=== PATIENT | female | born 1940 ===

== ENCOUNTER 2017-03-17 14:35 | Inpatient (IN) ==
[2017-03-17] MEDS ORDERED: FUROSEMIDE 40 MG/4 ML VIAL IV STA (14:53)
[2017-03-17] MEDS ORDERED: NITROGLYCERIN 2% OINT 1 INCH/GM PACK TOP STA (14:54)
--- NOTE | 2017-03-17 15:01 | Emergency Department Note ---
Veronica Thakur Hilary, am scribing for, and in the presence of, Mark Vega MD 14: 59. Silvia Thakur James D, MD, personally performed the services described in this documentation, ascribed by Shell Martin in my presence, and it is both accurate and complete 459 . Arrival - Arrival Chief Complaint: Shortness of Breath Stated Complaint: shortness of breath ED Nursing Triage Note: C/O HAVING SOB SINCE LAST EVENING, PATIENT WAS TOOK TO [facility] TODAY , STATES SHE HAD INCREASE SOB IN THE ER TODAY., WAS GIVEN 100 MG LASIX , ASA, INCH OF NITROPASTE, MORPHINE PRIOR TO ARRIVAL , DENIES HAVING ANY PAIN, . 20 G INT TO THE LEFT AC PRIOR TO ARRIVAL, SHANNON CATHETOR IN PLACE PRIOR TO ARRIVAL , Mode of Arrival: Stretcher Limitations: No Limitations Source: Patient, RN Notes Reviewed Time Seen by Provider: 03/17/17 14:49 - History of Present Illness HPI Narrative: Pt is a 76 y/o female brought into the ED via EMS with c/o SOB which onset this morning around 0300. She states that she was awoken from sleep with SOB and couldn't go back to sleep. Pt confirms wheezing, coughing, SOB but denies nausea , diaphoresis or chest pain. Pt has a PMHx of HTN and NIIDM. No other complaints or problems stated in the ED. Onset (ago): hour(s) Allergies/Adverse Reactions: Allergies Allergy/AdvReac Type Severity Reaction Status Date / Time No Known Allergies Allergy Unverified 03/17/17 14:59 Home Medications: Home Medications Medication Instructions Recorded Confirmed Type Clopidogrel [Plavix] 75 mg PO DAILY 03/17/17 03/17/17 History Clotrimazole/Betamethasone Dip 1 applic TOP BID 03/17/17 03/17/17 History [Clotrimazole/Betamethasone Cream] Ergocalciferol (Vitamin D2) 50,000 unit PO Q7D 03/17/17 03/17/17 History [Vitamin D2] Furosemide Tab [Lasix Tab] 20 mg PO DAILY 03/17/17 03/17/17 History Multivitamin (Centrum) [Centrum 1 tablet PO DAILY 03/17/17 03/17/17 History Tab] Nitroglycerin Sl Tab [Nitrostat] 0.4 mg SL Q5M PRN 03/17/17 03/17/17 History Ofloxacin 0.3% Oph Soln [Ocuflox 1 drop LEFT EYE QID 03/17/17 03/17/17 History 0.3% Oph Soln] Polyvinyl Alcohol [Artificial 15 ml BOTH EYES QID 03/17/17 03/17/17 History Tears] Potassium Chloride Cap/Tab [K Dur] 20 meq PO DAILY 03/17/17 03/17/17 History Propylene Glycol/Peg 400 [Systane 1 drop BOTH EYES QID PRN 03/17/17 03/17/17 History Gel Drops] Review of System - Review of System 12 point system: reviewed and no additional remarkable complaints except as stated - Review of System Constitutional: Absent: diaphoresis, fever Respiratory: Present: cough, respiratory distress (SOB), wheezing Cardiovascular: Absent: chest pain Gastrointestinal: Absent: nausea Medical,Surgical,& Family Hx - Medical History Cardio: History of: Hypertension Endocrine: History of: Diabetes Mellitus (NIDDM) - Social History Smoking Status: Never smoker Frequency of Alcohol Use: None Type of Drug Use: None Exam Physical Examination: GENERAL: This is a well-nourished, well-developed in no apparent distress. VITAL SIGNS: Temperature:97.9 Pulse: 101 Respiratory: 20 Blood Pressure: 154/78 O2SAT: 91 HEENT: Head is normocephalic and atraumatic. Pupils are equally round and reactive to light. Extraocular movement are intact. Oropharynx is benign with moist mucous membranes. NECK: JVD angle of the mandable. Neck is soft and supple without tenderness. There are no masses. There is no lymphadenopathy. LUNGS: Lungs have bibasilar rales. Chest rises symmetrically. There is no chest wall tenderness. CV: Heart is regular rate and rhythm without murmurs, rubs, or gallops. ABDOMEN:Abdomen is soft, non-tender to palpation. There are no abnormal masses palpated. There is no organomegaly. Bowel sounds are present and active. SKIN: Skin is warm and dry. No rash. EXTREMITIES: Patient has full range of motion without tenderness. There is 2+ pedal edema bilaterally. NEUROLOGIC: Awake, alert, and oriented x4. Cranial nerves II through XII are grossly intact. There are no motorsensory deficits. PSYCHIATRIC: Normal affect. Normal mood. Vital Signs: Vital Signs Temperature 97.9 F 03/17/17 14:36 Pulse Rate 94 H 03/17/17 16:45 Respiratory Rate 20 03/17/17 16:45 Blood Pressure 147/82 03/17/17 16:45 O2 Sat by Pulse Oximetry 94 L 03/17/17 16:45 Course - Consultations Consultation #1: Discussed with hospitalist. Patient will be admitted to their service. Time: 15:00 Results - Labs CBC & BMP: 03/17/17 15:54 03/17/17 15:54 Lab Results: I have reviewed the patients labs Labs: Laboratory Tests 03/17/17 15:54 WBC 10.3 RBC 4.36 Hgb 12.3 Hct 37.6 MCV 86.2 L MPV 9.5 L Neut % (Auto) 80.3 H Lymph % (Auto) 14.0 L Neut # (Auto) 8.3 H Laboratory Tests 03/17/17 03/17/17 15:54 15:54 Sodium 140 Potassium 4.8 Chloride 107 Carbon Dioxide 27 BUN 27 H Creatinine 1.20 H BUN/Creatinine Ratio 22.00 H Glucose 283 H Troponin I 1.280 H - Diagnostic Findings Procedure: Chest x-ray: report reviewed by me (Progressive moderately severe CHF with small pleural effusions. It is difficult to exclude additional underlying pathology and follow-up chest x-ray is recommended. Osteopenia), Ultrasound: report reviewed by me (Venous Doppler: No evidence to suggest deep venous thrombosis within either lower extremity) Disposition Clinical Impression: Congestive heart failure, Diabetes mellitus type 2 in obese, Hyperlipidemia, Essential hypertension Case discussed with: patient Disposition: Still a Patient Condition: Stable
[2017-03-17] MEDS ORDERED: FUROSEMIDE 40 MG/4 ML VIAL ONE (15:06)
[2017-03-17] MEDS ORDERED: NITROGLYCERIN 2% OINT 1 INCH/GM PACK TOP ONE (15:07)
--- NOTE | 2017-03-17 15:35 | XRay Report ---
Portable chest Date: 03/17/2017 Clinical history: CHF Comparison: 03/17/2017 Technique: Portable AP sitting chest Findings: Stable cardiomegaly with calcification in the aortic knob. Progressive diffuse parenchymal findings with small pleural effusions. Osteopenia with degenerative changes. Impression: Progressive moderately severe CHF with small pleural effusions. It is difficult to exclude additional underlying pathology and follow-up chest x-ray is recommended. Osteopenia. PROCEDURE INTERPRETED AT [facility] DEPARTMENT OF RADIOLOGY Final Report Signed by: Dr. Rosa Hurtado
[2017-03-17 16:01] LABS: Basophils % 0.2 % (0.0-0.8); Eosinophils % 0.1 % (0.00-10.9); Hematocrit 37.6 VOL% (35.7-47.0); Hemoglobin 12.3 GM/DL (12.0-16.0); Immature Granulocytes % 0.6 %; Immature Granulocytes Absolute 0.06 #; Lymphocytes # 1.4 10*3/uL (1.4-4.0); Mean Corpuscular HGB Conc 32.7 GM/DL (32-36); Mean Corpuscular Hemoglobin 28 PG (27-34); Mean Corpuscular Volume 86.2 FL (87-102); Mean Platelet Volume 9.5 FL (9.6-12.0); Monocytes # 0.5 10*3/uL (0.11-0.8); Monocytes % 4.8 % (1.7-12.7); Neutrophils # 8.3 10*3/uL (1.4-7.4); Neutrophils % 80.3 % (38.7-73.9); Platelet Count 344 T/CUMM (130-400); Red Blood Count 4.36 MC/CUMM (3.8-5.5); Red Cell Distribution Width 14.1 % (9.3-17.3); White Blood Count 10.3 T/CUMM (4-12)
[2017-03-17 16:28] LABS: Calcium 9.5 MG/DL (8.5-10.1); Free T4 (Free Thyroxine) 1.1 NG/DL (0.76-1.46); Osmolality,Calculated 293.4 MOS/KG (273-304); Potassium 4.8 MMOL/L (3.5-5.1); Thyroid Stimulating Hormone 1.48 uIU/ml (0.358-3.74)
[2017-03-17 16:45] LABS: Magnesium 2.1 MG/DL (1.8-2.4); Phosphorous 3.6 MG/DL (2.5-4.9)
--- NOTE | 2017-03-17 16:51 | Hospitalist History & Physical ---
Assessment and Plan (1) Congestive heart failure Status: Acute Assessment and plan: Pro-we BNP at the [facility] was noted at 8000. She was diuresed there and repeat Lasix was given here in the ED. Repeat BNP noted at 1145. Spoke with the family in great detail regarding the need to adhere to fluid restrictions, the patient her reports that the patient drinks soft drinks nonstop all day long. The patient states she only drinks one soft drink a day, however I find that very hard to believe. We will obtain an echo and bilateral venous Doppler studies. The patient's troponin levels were elevated at the time of admission also, her repeat troponin was noted at 1.280. We will obtain serial troponins. Since the patient has a extensive cardiac history we will consult cardiology to assist during the clinical encounter. We will continue diuresis and start Lasix drip. Monitor output very closely. Current Visit: Yes (2) Diabetes mellitus type 2 in obese Status: Acute Assessment and plan: The patient's blood sugars were markedly elevated at the time of admission. We will obtain hemoglobin A1c and start Accu-Cheks with sliding scale coverage. Current Visit: Yes (3) Essential hypertension Status: Acute Assessment and plan: The patient's blood pressure is stable, however we will continue to diurese and monitor. Current Visit: Yes History of Present Illness Chief complaint: Shortness of breath; chest pain History of present illness: This is a very chronically ill 76-year-old female that presented to the ED at [facility] as a lateral transfer from the [facility] for the evaluation of shortness of breath and chest pain. Patient has a very complex medical history significant for diabetes mellitus, congestive heart failure, myocardial infarction, and hypertension. At the time of presentation the patient was experiencing difficulty breathing. Her is at bedside, he was service historian. The reports the onset of symptoms at or about 0300. He reports that his was awoken from sleep with shortness of breath and had difficulty going back to sleep. The patient's reports that she is normally compliant with all of her medications, however she is not compliant with fluid consumption. He reports that she drinks soft drinks nonstop all day long. Her symptoms became so severe that she presented to the [facility] for further evaluation. At the [facility] she was assessed and labs were obtained which revealed a sodium of 141, potassium of 5.2, chloride 106, carbon dioxide 23.8, BUN at 26, creatinine at 1.2, calcium at 9.2, albumin 3.5, and glucose level at 320. Cardiac enzymes were obtained which reported a troponin at 0.13, CK-MB of 4.8, CPK at 125, and myoglobin at 158. A pro BNP was ordered which showed a gross elevation at 8458.4. Arterial blood gas was ordered which reported a pH at 7.29, PCO2 at 49, PO2 at 48, HC03 at 23.6. Complete blood count was obtained which showed a WBC at 2.1, hemoglobin at 12.9, hematocrit 41.1, and platelet count at 354. Chest x-ray was obtained which reported cardiomegaly with a moderate thoracic kyphosis, chronic coarsened markings of the mid and lower lung pratt with some pleural scarring seen about the left costophrenic angle,possible hiatal hernia, and old compression deformity of 1 of the lower thoracic vertebrae. Dr. Vega was notified by the attending physician at the [facility] regarding the need for an advanced level of care, the patient was subsequently transferred to [facility] for continuation of care. The patient continued to experience dyspnea at the time of admission, with O2 saturations noted in the 80s. Intravenous Lasix was administered and a Melchor catheter was inserted. Labs were repeated at that time which were significant for BUN at 27, creatinine at 1.20, and glucose level at 283. Cardiac enzymes were repeated which reported a troponin at 1.280. Chest x-ray was repeated which reported progressively moderate severe CHF with small pleural effusions and osteopenia. After brief discussion with Dr. Vega and Dr. Hale, the patient will be admitted to the hospitalist services for continuation of care. The patient will be placed in the critical care unit and cardiology will be consulted. Home Medications Medication Instructions Recorded Confirmed Type Clopidogrel [Plavix] 75 mg PO DAILY 03/17/17 03/17/17 History Clotrimazole/Betamethasone Dip 1 applic TOP BID 03/17/17 03/17/17 History [Clotrimazole/Betamethasone Cream] Ergocalciferol (Vitamin D2) 50,000 unit PO Q7D 03/17/17 03/17/17 History [Vitamin D2] Furosemide Tab [Lasix Tab] 20 mg PO DAILY 03/17/17 03/17/17 History Multivitamin (Centrum) [Centrum 1 tablet PO DAILY 03/17/17 03/17/17 History Tab] Nitroglycerin Sl Tab [Nitrostat] 0.4 mg SL Q5M PRN 03/17/17 03/17/17 History Ofloxacin 0.3% Oph Soln [Ocuflox 1 drop LEFT EYE QID 03/17/17 03/17/17 History 0.3% Oph Soln] Polyvinyl Alcohol [Artificial 15 ml BOTH EYES QID 03/17/17 03/17/17 History Tears] Potassium Chloride Cap/Tab [K Dur] 20 meq PO DAILY 03/17/17 03/17/17 History Propylene Glycol/Peg 400 [Systane 1 drop BOTH EYES QID PRN 03/17/17 03/17/17 History Gel Drops] Allergies Allergy/AdvReac Type Severity Reaction Status Date / Time No Known Allergies Allergy Unverified 03/17/17 14:59 Medical,Surgical,& Family Hx - Medical History Cardio: History of: Hypertension Endocrine: History of: Diabetes Mellitus (NIDDM) - Social History Smoking Status: Never smoker Frequency of Alcohol Use: None Type of Drug Use: None 12 point system: reviewed and no additional remarkable complaints except as stated Exam - Constitutional Vitals: Period Temp Pulse Resp BP Sys/Pina Pulse Ox Last 24 Hr 97.9 F 101-106 20-24 154-154/78-78 91-92 General appearance: mild distress - Head Head exam: Present: normal inspection, normocephalic, atraumatic - Eye Eye exam: Present: EOMI, conjunctival injection. Absent: nystagmus Pupils: Present: WESLY, normal accommodation - ENT ENT exam: Present: normal exam, normal external ear exam, normal oropharynx - Neck Neck exam: Present: normal inspection. Absent: lymphadenopathy, meningismus, tenderness, thyromegaly - Respiratory Respiratory exam: Present: accessory muscle use, prolonged expiratory phase, rales, rhonchi - Cardiovascular Cardiovascular exam: Present: JVD, regular rate and rhythm, systolic murmur. Absent: carotid bruit, diastolic murmur, gallop, rubs - GI/Abdominal GI/Abdominal exam: Present: normal bowel sounds, soft. Absent: mass, tenderness , rebound - Extremities Exam Extremities exam: Present: edema (+3 edema noted to bilateral lower extremities) - Back Exam Back exam: Present: normal inspection - Neurological Exam Neurological exam: Present: alert, oriented X3, CN II-XII intact - Psychiatric Psychiatric exam: Present: normal affect, normal mood - Skin Skin exam: Present: normal color, warm, dry Results - Labs CBC & BMP: 03/17/17 15:54 03/17/17 15:54 Lab Results: I have reviewed the past 24 hour labs
--- NOTE | 2017-03-17 16:57 | Ultrasound Report ---
Exam: Bilateral lower extremity venous Doppler ultrasound Comparison: None Clinical history: Leg edema, shortness of breath Technique: Duplex scan of the lower extremity veins using B-mode/grayscale scaled imaging and Doppler spectral analysis and color flow. Findings: Major venous structures of the lower extremities demonstrate a normal course and caliber. Normal color-flow study and spectral analysis. There is normal compression and augmentation of bilateral common femoral, superficial femoral and popliteal veins. The proximal bilateral greater saphenous veins appear to be patent. Impression: No evidence to suggest deep venous thrombosis within either lower extremity. Ultrasound images were captured and stored. PROCEDURE INTERPRETED AT [facility] DEPARTMENT OF RADIOLOGY Final Report Signed by: Dr. Rosa Hurtado
[2017-03-17] MEDS ORDERED: ONDANSETRON 4 MG/2 ML VIAL IV PRN (18:35)
[2017-03-17] MEDS ORDERED: ACETAMINOPHEN 325 MG TABLET PO PRN (18:35)
[2017-03-17] MEDS ORDERED: MAGNESIUM SULF RIDER 2 GM in PREMIX 1 EACH IV PRN (18:50)
[2017-03-17] MEDS ORDERED: POTASSIUM CHLORIDE RIDER 10 MEQ in PREMIX 1 EACH IV PRN (18:50)
[2017-03-17] MEDS: MORPHINE 2 MG/1 ML SYRINGE IV PRN ×2 (18:50→22:41)
[2017-03-17] MEDS ORDERED: MAGNESIUM SULF RIDER 4 GM in PREMIX 1 EACH IV PRN (18:50)
[2017-03-17] MEDS: FUROSEMIDE INJ 100 MG in SODIUM CHLORIDE 0.9% 90 ML IV SCH (19:01)
[2017-03-17] MEDS: ALBUTEROL/IPRATROPIUM 3 ML NEB RESP TX SCH (19:51)
[2017-03-17 20:29] LABS: CKMB % 5.8 %
[2017-03-17 20:35] LABS: Troponin I Only 1.7 NG/ML (0.00-0.045)
[2017-03-17] MEDS ORDERED: hydrALAZINE 20 MG/1 ML VIAL IV PRN (20:39)
[2017-03-17] MEDS: ATORVASTATIN 80 MG TABLET PO SCH ×2 (21:40→22:21)
[2017-03-17] MEDS: POLYVINYL ALCOHOL 1.4% OPH SOLN 15 ML BOTTLE BOTH EYES SCH (21:40)
[2017-03-17] MEDS: ENOXAPARIN 60 MG/0.6 ML SYRINGE SUBCUT SCH (21:40)
[2017-03-17] MEDS: OFLOXACIN 0.3% OPH SOLN 10 ML BOTTLE LEFT EYE SCH (21:40)
[2017-03-17] MEDS: ERGOCALCIFEROL 50,000 UNIT CAPSULE PO SCH (21:40)
[2017-03-17] MEDS: INSULIN REGULAR 100 UNIT/ML SUBCUT SCH (21:41)
[2017-03-17] MEDS: CARVEDILOL 6.25 MG TABLET PO SCH (21:41)
[2017-03-17] MEDS: CLOTRIMAZOLE/BETAMETHASONE CREAM 15 GM TUBE TOP SCH (21:42)
[2017-03-17] MEDS: CYCLOBENZAPRINE 10 MG TABLET PO PRN (23:00)
[2017-03-18] MEDS: ALBUTEROL/IPRATROPIUM 3 ML NEB RESP TX SCH ×6 (02:23→21:46)
[2017-03-18 02:26] LABS: Basophils % 0.2 % (0.0-0.8); Eosinophils % 0.4 % (0.00-10.9); Hematocrit 34.1 VOL% (35.7-47.0); Immature Granulocytes % 0.4 %; Immature Granulocytes Absolute 0.04 #; Lymphocytes # 1.9 10*3/uL (1.4-4.0); Lymphocytes % 17.2 % (21.3-54.2); Mean Corpuscular HGB Conc 32.3 GM/DL (32-36); Mean Corpuscular Hemoglobin 28 PG (27-34); Mean Corpuscular Volume 85.9 FL (87-102); Mean Platelet Volume 9.6 FL (9.6-12.0); Monocytes # 1.1 10*3/uL (0.11-0.8); Monocytes % 9.6 % (1.7-12.7); Neutrophils # 8.1 10*3/uL (1.4-7.4); Neutrophils % 72.2 % (38.7-73.9); Platelet Count 307 T/CUMM (130-400); Red Blood Count 3.97 MC/CUMM (3.8-5.5); Red Cell Distribution Width 14.1 % (9.3-17.3); White Blood Count 11.2 T/CUMM (4-12)
[2017-03-18 03:14] LABS: Magnesium 1.8 MG/DL (1.8-2.4); Potassium 4.4 MMOL/L (3.5-5.1)
[2017-03-18 03:15] LABS: Magnesium 1.8 MG/DL (1.8-2.4); Phosphorous 3.7 MG/DL (2.5-4.9)
[2017-03-18 03:18] LABS: CKMB % 6.1 %
[2017-03-18 03:41] LABS: Troponin I Only 2.16 NG/ML (0.00-0.045)
[2017-03-18] MEDS: FUROSEMIDE INJ 100 MG in SODIUM CHLORIDE 0.9% 90 ML IV SCH (04:50)
--- NOTE | 2017-03-18 07:32 | ECHO Report ---
Brianna Moscoso 03/17/2017 Exam Date: 15:05 Referring Physician: Yamileth Funes Technologist: KATH Age: 76 Ht (in): 62 Wt (lb): 142 FExam Location: [facility] Gender: Echo [id number]: Heart failure, unspecified, HyperliIndications:pidemia, unspecified, Essential (primary) hypertension, Shortness of breath, NIDDM BP: 154 / 78 HR: 96 SinusRhythm: goodTechnical Quality: IMPRESSIONS Left ventricular ejection fraction is estimated at 30 %. Diastolic parameters are most consistent with grade 3 diastolic dysfunction restrictive physiology. Mild aortic stenosis with moderate to severe aortic stensosi Mitral annular calcification with mild posterior mitral regurgitation Severe pulmonary hypertension Biatrial enlargement MEASUREMENTS (Male / Female) Normal Values 2D ECHO LV Diastolic Diameter PLAX 4.8 cm 4.2 - 5.9 / 3.9 - 5.3 cm LV Systolic Diameter PLAX 3.6 cm LV Fractional Shortening PLAX 25.6 % IVS Diastolic Thickness 1.4 cm 0.6 - 1.0 / 0.6 - 0.9 cm LVPW Diastolic Thickness 1.4 cm 0.6 - 1.0 / 0.6 - 0.9 cm RV Internal Dim ED PLAX 3.2 cm Aortic Root Diameter 2.8 cm LA Systolic Diameter LX 4.6 cm 3.0 - 4.0 / 2.7 - 3.8 cm DOPPLER TR Peak Velocity 395.0 cm/s TR Peak Gradient 62.4 mmHg FINDINGS Left Ventricle Normal left ventricular cavity size. Mild left ventricular hypertrophy. Left ventricular ejection fraction is estimated at 30 %. There is global hypokinesis but the distal anterior and the inferior segments appear to be slightly more hypokinetic than the remainder the ventricular myocardium. Diastolic parameters are most consistent with grade 3 diastolic dysfunction restrictive physiology. Right Ventricle The right ventricle is normal in size and function. Right Atrium Moderately increased right atrial size. Left Atrium Severely increased left atrial size. Mitral Valve Severely thickened mitral valve. Mitral valve mean gradient is 7 mmHg at a heart rate of 96 bpm. Mild posterior mitral valve regurgitation. The valve is thickened and calcified as is the annulus. Aortic Valve Severe aortic valve calcification. Mild aortic valve stenosis, mean gradient 20 mmHg, HALEIGH 1.3 cm. There is moderate to severe aortic insufficiency. The pressure halftime is 249-334 msec. LVOT VTI is 125 and AV VTI is 62.6. Tricuspid Valve Thickened tricuspid valve. [id number] tricuspid valve regurgitation. Tricuspid regurgitation velocities suggest a RVSP of 62 mmHg plus the right atrial enlargement. Pulmonic Valve Morphologically normal pulmonic valve. Mild pulmonary valve regurgitation with an EDV of 1.2 m/sec. Pericardium Normal pericardium without effusion. Aorta Normal ascending aorta dimension. Chrissy Noble (Electronically Signed) 18 March 2017 Final Date: 07:30
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
[2017-03-18] MEDS: CLOTRIMAZOLE/BETAMETHASONE CREAM 15 GM TUBE TOP SCH ×2 (08:15→21:40)
[2017-03-18] MEDS: INSULIN REGULAR 100 UNIT/ML SUBCUT SCH ×4 (08:16→21:41)
[2017-03-18] MEDS: ASPIRIN EC 81 MG TABLET PO SCH (08:17)
[2017-03-18] MEDS: OFLOXACIN 0.3% OPH SOLN 10 ML BOTTLE LEFT EYE SCH ×4 (08:17→21:40)
[2017-03-18] MEDS: POLYVINYL ALCOHOL 1.4% OPH SOLN 15 ML BOTTLE BOTH EYES SCH ×4 (08:17→21:40)
[2017-03-18] MEDS: CARVEDILOL 6.25 MG TABLET PO SCH ×2 (08:17→21:40)
[2017-03-18] MEDS: MULTIVITAMIN (CENTRUM) TABLET PO SCH (08:17)
[2017-03-18] MEDS: CLOPIDOGREL 75 MG TABLET PO SCH (08:17)
[2017-03-18] MEDS: ENOXAPARIN 60 MG/0.6 ML SYRINGE SUBCUT SCH ×2 (08:18→19:55)
[2017-03-18] MEDS: SACUBITRIL/VALSARTAN 49-51 MG TABLET PO SCH ×2 (08:24→21:40)
[2017-03-18] MEDS: ISOSORBIDE MONONITRATE 30 MG TABLET PO SCH (08:25)
[2017-03-18 08:50] LABS: CKMB % 5.8 %
[2017-03-18 08:52] LABS: Troponin I Only 2.06 NG/ML (0.00-0.045)
[2017-03-18] MEDS ORDERED: ASPIRIN EC 325 MG TABLET PO SCH (09:00)
--- NOTE | 2017-03-18 09:56 | EKG Report ---
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
--- NOTE | 2017-03-18 10:40 | Hospitalist Progress Note ---
Assessment and Plan (1) Congestive heart failure Status: Acute Assessment and plan: 1)acute hypoxic respiratory failure due to pulmonary edema from acute on chronic heart failure systolic and diastolic with valve disease- diuresing with IV lasix infusion. Troponins up to 2. Dr Noble has seen her this morning and recommends right and left heart cath. I have reviewed the report of the echo and the image and report of the CXR. She is on Plavix, lipitor, coreg, hydralazine, imdur. BP remains elevated- adjust meds. NSTEMI. 2)HTN 3)CKD 3 4)T2DM- accuchecks 180-248. SSI. no meds for diabetes on home med rec. 5)anemia- alevism Current Visit: Yes (2) Diabetes mellitus type 2 in obese Status: Acute Current Visit: Yes (3) Essential hypertension Status: Acute Current Visit: Yes (4) Anemia Status: Acute Current Visit: Yes Hospitalist: Subjective Interval history: Mrs Moscoso is feeling better this morning. She is on 4L NC with sats around 92 %. She says this all started in the last day. She sees Dr Medley. She is eating breakfast and talking without drop in her sats. Exam - Constitutional Vitals: Period Temp Pulse Resp BP Sys/Pina Pulse Ox Last 24 Hr 97.9 F-98.8 F 79-116 14-31 124-183/71-106 88-100 General appearance: normal weight, no acute distress - Head Head exam: Present: normocephalic, atraumatic - Eye Eye exam: Present: EOMI. Absent: scleral icterus Pupils: Present: WESLY - Respiratory Respiratory exam: Present: rales (bilaterally throughout posterior pratt ) - Cardiovascular Cardiovascular exam: Present: regular rate and rhythm - GI/Abdominal GI/Abdominal exam: Present: normal bowel sounds, soft. Absent: tenderness - Extremities Exam Extremities exam: Absent: edema Results - Labs CBC & BMP: 03/18/17 02:19 03/18/17 02:19 Lab Results: I have reviewed the past 24 hour labs
--- NOTE | 2017-03-18 13:43 | XRay Report ---
Exam: XR chest 1V portable Indication: COPD, cardiomegaly Comparison study: 03/17/2017 Findings: Correction was enlarged, similar to prior. Atherosclerotic changes of the thoracic aorta are noted. Prominent perihilar and left more so than right basilar interstitial and airspace opacities are noted bilaterally. There is no pneumothorax. Osseous structures are stable from prior. Impression: Similar cardiomegaly and perihilar/basilar opacities may represent pulmonary edema changes. Multifocal infectious/inflammatory infiltrates are less likely consideration but not entirely excluded. PROCEDURE INTERPRETED AT [facility] DEPARTMENT OF RADIOLOGY Final Report Signed by: Last Jennings
[2017-03-18] MEDS: ATORVASTATIN 80 MG TABLET PO SCH (21:40)
[2017-03-18] MEDS: CYCLOBENZAPRINE 10 MG TABLET PO PRN (21:44)
[2017-03-19] MEDS: ALBUTEROL/IPRATROPIUM 3 ML NEB RESP TX SCH ×6 (01:26→19:34)
[2017-03-19 04:39] LABS: Basophils % 0.2 % (0.0-0.8); Eosinophils # 0.1 10*3/uL (0.0-0.87); Eosinophils % 1.1 % (0.00-10.9); Hemoglobin 11.8 GM/DL (12.0-16.0); Immature Granulocytes % 0.4 %; Immature Granulocytes Absolute 0.04 #; Lymphocytes # 2.4 10*3/uL (1.4-4.0); Lymphocytes % 21.8 % (21.3-54.2); Mean Corpuscular HGB Conc 32.8 GM/DL (32-36); Mean Corpuscular Hemoglobin 28 PG (27-34); Mean Corpuscular Volume 85.9 FL (87-102); Mean Platelet Volume 9.8 FL (9.6-12.0); Monocytes # 1.1 10*3/uL (0.11-0.8); Monocytes % 10.2 % (1.7-12.7); Neutrophils # 7.2 10*3/uL (1.4-7.4); Neutrophils % 66.3 % (38.7-73.9); Platelet Count 318 T/CUMM (130-400); Red Blood Count 4.19 MC/CUMM (3.8-5.5); Red Cell Distribution Width 13.8 % (9.3-17.3); White Blood Count 10.8 T/CUMM (4-12)
[2017-03-19 05:08] LABS: Magnesium 1.6 MG/DL (1.8-2.4); Osmolality,Calculated 290.1 MOS/KG (273-304); Potassium 3.8 MMOL/L (3.5-5.1)
[2017-03-19 05:10] LABS: Troponin I Only 1.1 NG/ML (0.00-0.045)
[2017-03-19] MEDS ORDERED: DIAZEPAM 5 MG TABLET PO ONE (08:24)
[2017-03-19] MEDS ORDERED: diphenhydrAMINE CAP 25 MG CAPSULE PO ONE (08:24)
--- NOTE | 2017-03-19 08:30 | Cardiology Progress Note ---
Assessment and Plan (1) Coronary artery disease Status: Chronic Current Visit: Yes Qualifiers: Coronary Disease-Associated Artery/Lesion type: [place] artery [place] vs. transplanted heart: [place] heart Associated angina: without angina Qualified Code(s): I25.10 - Atherosclerotic heart disease of [place] coronary artery without angina pectoris (2) Aortic insufficiency Status: Acute Assessment and plan: This in conjunction with her uncontrolled blood pressure may be the nidus for her acute decompensation. She also has decreased EF which might suggest subacute or chronic. She has not been seen for some time and has known coronary artery disease. Current Visit: Yes Qualifiers: Cardiac valve disease etiology: nonrheumatic Qualified Code(s): I35.1 - Nonrheumatic aortic (valve) insufficiency (3) Mitral regurgitation Status: Chronic Current Visit: Yes Qualifiers: Cardiac valve disease etiology: nonrheumatic Qualified Code(s): I34.0 - Nonrheumatic mitral (valve) insufficiency (4) Biatrial enlargement Status: Chronic Current Visit: Yes (5) Congestive heart failure Status: Acute Assessment and plan: The patient has a moderate to severely depressed ejection fraction. She has advanced diastolic dysfunction and valvular heart disease. She also has known underlying coronary artery disease. She will need left heart catheterization and probably right heart catheterization. I suspect the problem is her aortic insufficiency. She is [employer] and this will play into any decision for surgery especially the fact that she is anemic. I recommend maximum vasodilation to control her blood pressure and maximum diuresis. Current Visit: Yes (6) Diabetes mellitus type 2 in obese Status: Acute Current Visit: Yes (7) Hyperlipidemia Status: Chronic Current Visit: Yes Qualifiers: Hyperlipidemia type: pure hypercholesterolemia Qualified Code(s): E78.00 - Pure hypercholesterolemia, unspecified; E78.0 - Pure hypercholesterolemia (8) Essential hypertension Status: Chronic Current Visit: Yes (9) Anemia Status: Chronic Current Visit: Yes Cardiology - PN: Subj Interval history: The patient is clearly better today. She has diuresed almost 4 L and just over 3 kg of weight which correlate perfectly. Her renal function has tolerated this well. I reviewed her echocardiogram and her heart cath. Heart cath was in 2013 she had severe moderate to severe three-vessel disease with intervention on 2 vessels at that time. She also has by echocardiography moderate to severe and I favor severe aortic insufficiency. The patient needs left and right heart cath to delineate the problem. She has been on clopidogrel for some time and I consider stopping it it might potentially help if she needs surgery however given the fact that were only 24 hours away from her presumptive heart cath I will continue. She has plenty room to work with medicines until her aortic insufficiency and/or coronary artery disease are treated surgically. Her blood pressure remains high. I started her on escalating medications yesterday including beta-hector and Entresto. She still has lots of blood pressure that needs to be removed. I will increase her Coreg today as she is diuresed well if her renal function tolerates would up titrate slowly on the Entresto. She also is anemic and is a [employer]ology which may play into her risk for surgical intervention. I discussed with the patient about the left heart cath and she is agreeable. I will schedule tomorrow for the cath physician Dr. Hall Exam (Progress Note) - Constitutional Vitals: Period Temp Pulse Resp BP Sys/Pina Pulse Ox Last 24 Hr 97.6 F-99.7 F 86-116 17-32 111-177/60-92 77-100 General appearance: normal weight - Head Head exam: Present: normal inspection - Eye Eye exam: Present: EOMI Pupils: Present: WESLY - Neck Neck exam: Present: normal inspection - Respiratory Respiratory exam: Present: rales (But they are dramatically better than yesterday) - Cardiovascular Cardiovascular exam: Present: regular rate and rhythm (I do not hear AI) - GI/Abdominal GI/Abdominal exam: Present: normal bowel sounds - Extremities Exam Extremities exam: Present: normal inspection - Back Exam Back exam: Present: normal inspection - Neurological Exam Neurological exam: Present: alert, oriented X3 - Psychiatric Psychiatric exam: Present: normal affect, normal mood - Skin Skin exam: Present: normal color, warm, dry Result/EKG - Labs CBC & BMP: 03/19/17 03:51 03/19/17 03:51 Labs: Laboratory Results - last 24 hr 03/18/17 03/18/17 03/18/17 07:14 07:39 11:03 WBC RBC Hgb Hct MCV MCH MCHC RDW Plt Count MPV Neut % (Auto) Lymph % (Auto) [place] % (Auto) Eos % (Auto) Baso % (Auto) Neut # (Auto) Lymph # (Auto) [place] # (Auto) Eos # (Auto) Baso # (Auto) Immature Gran % Nucleated RBC % Immature Gran # Nucleated RBCs # Sodium Potassium Chloride Carbon Dioxide Anion Gap BUN Creatinine GFR Calculation BUN/Creatinine Ratio Glucose POC Glucose 180 H 221 H Calculated Osmolality Calcium Magnesium Total Creatine Kinase 88 CK-MB (CK-2) 5.1 H CK and CKMB Interp 5.8 Troponin I 2.060 H 03/18/17 03/18/17 03/19/17 15:18 19:54 03:51 WBC 10.8 RBC 4.19 Hgb 11.8 L Hct 36.0 MCV 85.9 L MCH 28 MCHC 32.8 RDW 13.8 Plt Count 318 MPV 9.8 Neut % (Auto) 66.3 Lymph % (Auto) 21.8 [place] % (Auto) 10.2 Eos % (Auto) 1.1 Baso % (Auto) 0.2 Neut # (Auto) 7.2 Lymph # (Auto) 2.4 [place] # (Auto) 1.1 H Eos # (Auto) 0.1 Baso # (Auto) 0.0 Immature Gran % 0.4 Nucleated RBC % 0.0 Immature Gran # 0.04 Nucleated RBCs # 0.00 Sodium Potassium Chloride Carbon Dioxide Anion Gap BUN Creatinine GFR Calculation BUN/Creatinine Ratio Glucose POC Glucose 232 H 276 H Calculated Osmolality Calcium Magnesium Total Creatine Kinase CK-MB (CK-2) CK and CKMB Interp Troponin I 03/19/17 03/19/17 03:51 07:16 WBC RBC Hgb Hct MCV MCH MCHC RDW Plt Count MPV Neut % (Auto) Lymph % (Auto) [place] % (Auto) Eos % (Auto) Baso % (Auto) Neut # (Auto) Lymph # (Auto) [place] # (Auto) Eos # (Auto) Baso # (Auto) Immature Gran % Nucleated RBC % Immature Gran # Nucleated RBCs # Sodium 142 Potassium 3.8 Chloride 104 Carbon Dioxide 29 Anion Gap 12.8 BUN 25 H Creatinine 1.00 GFR Calculation 51 BUN/Creatinine Ratio 25.00 H Glucose 172 H POC Glucose 184 H Calculated Osmolality 290.1 Calcium 9.0 Magnesium 1.6 L Total Creatine Kinase CK-MB (CK-2) CK and CKMB Interp Troponin I 1.100 H D
[2017-03-19] MEDS: INSULIN REGULAR 100 UNIT/ML SUBCUT SCH ×4 (08:36→23:51)
[2017-03-19] MEDS: SACUBITRIL/VALSARTAN 49-51 MG TABLET PO SCH ×2 (09:15→21:53)
[2017-03-19] MEDS: ISOSORBIDE MONONITRATE 30 MG TABLET PO SCH (09:16)
[2017-03-19] MEDS: CARVEDILOL 12.5 MG TABLET PO SCH ×2 (09:16→21:53)
[2017-03-19] MEDS: POLYVINYL ALCOHOL 1.4% OPH SOLN 15 ML BOTTLE BOTH EYES SCH ×4 (09:17→21:54)
[2017-03-19] MEDS: ERGOCALCIFEROL 50,000 UNIT CAPSULE PO SCH (09:17)
[2017-03-19] MEDS: CLOTRIMAZOLE/BETAMETHASONE CREAM 15 GM TUBE TOP SCH ×2 (09:18→21:54)
[2017-03-19] MEDS: CLOPIDOGREL 75 MG TABLET PO SCH (09:18)
[2017-03-19] MEDS: MULTIVITAMIN (CENTRUM) TABLET PO SCH (09:18)
[2017-03-19] MEDS: ENOXAPARIN 60 MG/0.6 ML SYRINGE SUBCUT SCH ×2 (09:18→21:54)
[2017-03-19] MEDS: ASPIRIN EC 81 MG TABLET PO SCH (09:18)
[2017-03-19] MEDS: OFLOXACIN 0.3% OPH SOLN 10 ML BOTTLE LEFT EYE SCH ×4 (09:19→21:54)
--- NOTE | 2017-03-19 09:21 | Hospitalist Progress Note ---
Assessment and Plan (1) Congestive heart failure Status: Acute Assessment and plan: 1)acute hypoxic respiratory failure due to pulmonary edema from acute on chronic heart failure systolic and diastolic with valve disease- lasix infusion complete, begin oral lasix today. Troponins peaked at 2.1. Dr Noble has seen her this morning and recommends right and left heart cath tomorrow. She is on Plavix, lipitor, coreg, hydralazine, imdur. BP under better control, but occasionally- add oral hydralazine. creatinine now 1. consider NO? NSTEMI. 2)HTN- adding hydralazine as above. 3)CKD 2- creatinine now 1, GFR 51 4)T2DM- accuchecks 180-248. SSI. no meds for diabetes on home med rec. begin glimepiride. 5)anemia- spiritism 6)dispo- to tele today. Current Visit: Yes (2) Diabetes mellitus type 2 in obese Status: Acute Current Visit: Yes (3) Essential hypertension Status: Chronic Current Visit: Yes (4) Anemia Status: Chronic Current Visit: Yes Hospitalist: Subjective Interval history: Mrs Moscoso tells me she is much better today and is breathing as she usually does. She is able to lie flat. She denies pain. She ate her entire breakfast. She understands the plan for heart cath tomorrow morning. Exam - Constitutional Vitals: Period Temp Pulse Resp BP Sys/Pina Pulse Ox Last 24 Hr 97.6 F-99.7 F 86-109 17-32 111-177/60-92 77-100 General appearance: normal weight, no acute distress - Head Head exam: Present: normocephalic, atraumatic - Eye Eye exam: Present: EOMI. Absent: scleral icterus - Respiratory Respiratory exam: Present: rales (at bases, much less than yesterday) - Cardiovascular Cardiovascular exam: Present: regular rate and rhythm - GI/Abdominal GI/Abdominal exam: Present: normal bowel sounds, soft. Absent: tenderness - Extremities Exam Extremities exam: Absent: edema Results - Labs CBC & BMP: 03/19/17 03:51 03/19/17 03:51 Lab Results: I have reviewed the past 24 hour labs
[2017-03-19] MEDS: GLIMEPIRIDE 2 MG TABLET PO SCH (09:39)
[2017-03-19] MEDS: FUROSEMIDE 40 MG TABLET PO SCH (09:39)
[2017-03-19] MEDS: hydrALAZINE 25 MG TABLET PO SCH ×2 (16:56→21:53)
[2017-03-19] MEDS: ATORVASTATIN 80 MG TABLET PO SCH (21:53)
[2017-03-20] MEDS: ALBUTEROL/IPRATROPIUM 3 ML NEB RESP TX SCH ×7 (00:56→23:36)
[2017-03-20 05:10] LABS: Basophils % 0.1 % (0.0-0.8); Eosinophils # 0.1 10*3/uL (0.0-0.87); Eosinophils % 1.5 % (0.00-10.9); Hematocrit 32.9 VOL% (35.7-47.0); Hemoglobin 10.8 GM/DL (12.0-16.0); Immature Granulocytes % 0.3 %; Immature Granulocytes Absolute 0.03 #; Lymphocytes # 2.8 10*3/uL (1.4-4.0); Lymphocytes % 30.2 % (21.3-54.2); Mean Corpuscular HGB Conc 32.8 GM/DL (32-36); Mean Corpuscular Hemoglobin 28 PG (27-34); Mean Corpuscular Volume 85.7 FL (87-102); Mean Platelet Volume 9.8 FL (9.6-12.0); Monocytes # 0.9 10*3/uL (0.11-0.8); Monocytes % 9.4 % (1.7-12.7); Neutrophils # 5.4 10*3/uL (1.4-7.4); Neutrophils % 58.5 % (38.7-73.9); Platelet Count 283 T/CUMM (130-400); Red Blood Count 3.84 MC/CUMM (3.8-5.5); Red Cell Distribution Width 13.7 % (9.3-17.3); White Blood Count 9.2 T/CUMM (4-12)
[2017-03-20 05:49] LABS: Calcium 8.3 MG/DL (8.5-10.1); Osmolality,Calculated 293.1 MOS/KG (273-304); Potassium 3.9 MMOL/L (3.5-5.1)
[2017-03-20] MEDS ORDERED: SYSTANE BOTH EYES PRN (09:00)
[2017-03-20] MEDS: ENOXAPARIN 60 MG/0.6 ML SYRINGE SUBCUT SCH ×2 (09:03→21:58)
[2017-03-20] MEDS: ASPIRIN EC 81 MG TABLET PO SCH (09:04)
[2017-03-20] MEDS: SACUBITRIL/VALSARTAN 49-51 MG TABLET PO SCH ×2 (09:04→21:56)
[2017-03-20] MEDS: CARVEDILOL 12.5 MG TABLET PO SCH ×2 (09:04→21:56)
[2017-03-20] MEDS: MULTIVITAMIN (CENTRUM) TABLET PO SCH (09:04)
[2017-03-20] MEDS: GLIMEPIRIDE 2 MG TABLET PO SCH (09:04)
[2017-03-20] MEDS: ISOSORBIDE MONONITRATE 30 MG TABLET PO SCH (09:04)
[2017-03-20] MEDS: CLOPIDOGREL 75 MG TABLET PO SCH (09:04)
[2017-03-20] MEDS: FUROSEMIDE 40 MG TABLET PO SCH (09:04)
[2017-03-20] MEDS: hydrALAZINE 25 MG TABLET PO SCH ×4 (09:04→21:58)
[2017-03-20] MEDS: INSULIN REGULAR 100 UNIT/ML SUBCUT SCH ×4 (09:05→21:58)
[2017-03-20] MEDS: POLYVINYL ALCOHOL 1.4% OPH SOLN 15 ML BOTTLE BOTH EYES SCH ×4 (09:06→21:59)
[2017-03-20] MEDS: CLOTRIMAZOLE/BETAMETHASONE CREAM 15 GM TUBE TOP SCH ×2 (09:07→22:00)
[2017-03-20] MEDS: OFLOXACIN 0.3% OPH SOLN 10 ML BOTTLE LEFT EYE SCH ×4 (09:07→22:00)
[2017-03-20] MEDS ORDERED: diphenhydrAMINE CAP 25 MG CAPSULE ONE (12:27)
[2017-03-20] MEDS ORDERED: DIAZEPAM 5 MG TABLET ONE (12:27)
[2017-03-20] MEDS ORDERED: LIDOCAINE 1% 20 ML VIAL ONE (12:39)
[2017-03-20] MEDS ORDERED: HEPARIN/NACL 0.9% 2 UNITS/ML 1,000 ML IV ONE (12:39)
[2017-03-20] MEDS ORDERED: LIDOCAINE 1%/EPI INJ 20 ML VIAL ONE (12:58)
[2017-03-20] MEDS ORDERED: fentaNYL 100 MCG/2 ML VIAL ONE (13:07)
[2017-03-20] MEDS ORDERED: MIDAZOLAM 2 MG/2 ML VIAL ONE (13:07)
--- NOTE | 2017-03-20 13:11 | History and Physical Update ---
Sedation H&P Update - History and Physical H&P was reviewed, the patient examined and there: are no changes in the patients condition since last H&P was completed. - Sedation Plan for Sedation: moderate Patient Consent: Procedure disscussed with patient and patinet has consented., Risks and benefits were discussed with patient,including infection,, bleeding, injury to surrounding structures, seizure, temporary nerve, Patient understands and accepts potential risks/benefits and agrees to, proceed. ASA Class: III Airway Assessment: Class III: Soft palate, base of uvula visible
[2017-03-20] MEDS ORDERED: GLIMEPIRIDE 4 MG TABLET PO SCH (13:32)
--- NOTE | 2017-03-20 13:33 | Hospitalist Progress Note ---
Assessment and Plan (1) Congestive heart failure Status: Acute Assessment and plan: acute hypoxic respiratory failure due to pulmonary edema from systolic adn diastolic heart failure. She reponded to lasix infusion on admission and is now on oral lasix. She will have right and left heart cath today as troponins katy and peaked at 2.1. Continue plavix, lipitor, coreg, hydralazine, entresto, imdur- BP under better control with oral hydralazine added. Her creatinine is 1.2. NSTEMI. 2)HTN 3)CKD2 4)T2DM- I started glimepiride (first dose yesterday) but glucoses remain high- 199-240 today. Increase to med intensity SSI and increase dose of glimepiride. 5)anemia- Restoration 6)dispo- will return home at discharge. Current Visit: Yes (2) Diabetes mellitus type 2 in obese Status: Acute Current Visit: Yes (3) Essential hypertension Status: Chronic Current Visit: Yes (4) Anemia Status: Chronic Current Visit: Yes Hospitalist: Subjective Interval history: Mrs Moscoso reports having a good night last night. No orthopnea or PND. She is breathing comfortably. She will have R and L heart cath today. Exam - Constitutional Vitals: Period Temp Pulse Resp BP Sys/Pina Pulse Ox Last 24 Hr 97.7 F-99.8 F 74-95 16-20 101-162/48-87 94-100 General appearance: normal weight, no acute distress - Eye Eye exam: Present: EOMI. Absent: scleral icterus - Respiratory Respiratory exam: Present: rales (still some at bases) - Cardiovascular Cardiovascular exam: Present: regular rate and rhythm - GI/Abdominal GI/Abdominal exam: Present: normal bowel sounds, soft. Absent: tenderness - Extremities Exam Extremities exam: Absent: edema Results - Labs CBC & BMP: 03/20/17 04:33 03/20/17 04:33 Lab Results: I have reviewed the past 24 hour labs
--- NOTE | 2017-03-20 14:13 | Cardiac Catheterization ---
Date of Procedure:: 03/20/17 Pre-op Diagnosis: Patient with worsening LV function worsening aortic insufficiency for right and left heart catheterization to fully evaluate. Post-op diagnosis: same Procedure: Procedures performed: Right heart catheterization Oxygen saturation measurements Cardiac output by thermodilution technique Left heart catheterization Coronary arteriography Left ventriculography Femoral sheath angiography After obtaining informed consent the patient was brought to the [facility] with a right groin was prepped and draped in the usual sterile manner. Using intravenous sedation and local anesthesia a needle was inserted into the right femoral artery and a 6 [place] sheath was placed without difficulty. A separate needle stick was made to the right femoral vein and a 7 [place] sheath was placed without difficulty. A [place] catheter was advanced under fluoroscopy to the superior vena cava where oxygen saturation measurements were obtained. This catheter then was positioned using balloon flow to the main pulmonary artery. Oxygen saturations again were obtained with the catheter tip in the main pulmonary artery. This catheter then was connected to hemodynamic monitoring and pressures were measured in the pulmonary capillary wedge position and in the main pulmonary artery. Cardiac outputs were then obtained using the thermodilution technique. After completion of cardiac output measurements, the catheter was pulled back from the main pulmonary artery into the right ventricle where right ventricular pressures were measured. This catheter then was pulled back into the right atrium where pressures were measured and then this catheter was removed. A [place]ár[place] left coronary catheter was advanced over a guidewire through the arterial sheath to the ascending aorta under fluoroscopy. The left main coronary artery was engaged and multiple angiograms of the left coronary was undertaken in multiple views. After adequate angiograms of the left coronary were obtained this catheter was withdrawn and an AMRM right coronary catheter was advanced over a guidewire under fluoroscopic control the ascending aorta where angiography of the right coronary artery was undertaken in multiple views. After adequate angiograms of the right coronary artery were obtained this catheter was withdrawn and a pigtail ventriculographic catheter was advanced over a guidewire to fluoroscopic control to the ascending aorta where it was then passed across the aortic valve where intraventricular hemodynamics were measured. A ventriculogram was undertaken at this point in the MA projection. After completion of ventriculography this catheter was pulled back from the ventricle to the aorta under hemodynamic monitoring. It was then used to performed descending aortography injecting 45 cc of contrast at 18 cc/s in the MA projection. After completion of aortography this catheter was removed over a guidewire. At this point patient underwent femoral sheath angiography which demonstrated anatomy appropriate for [Mynx closure]. Good hemostasis was obtained and the patient was transferred back to the [facility] having suffered no significant immediate complications. Hemodynamics: Please see the accompanying hemodynamic data sheet PA pressures measured in the 46/20 range. Pulmonary capillary wedge pressure was 13 mmHg. Cardiac output measured in the 3.3 L/min range. Right atrial pressures were 8 mmHg. Coronary arteriography Left coronary artery: Left main coronary artery is well-developed and free of significant obstructing lesions. The circumflex coronary is a large nondominant vessel possesses a calcified 90% area stenosis in its proximal portion. Remainder the circumflex and its branches appear to be free of significant obstructing lesions. Left anterior descending coronary is a large vessel extends around the apex of the ventricle and provides the septal perforators to the inferior septum and its distal portion. This vessel has some irregularities but no significant stenosis can be identified. There is a large second diagonal has an area of probably 90% stenosis in its proximal portion. This is a moderate-sized vessel. Remainder of the diagonal is free of significant obstructing lesions. The LAD otherwise is large and free of significant obstructing lesions. Right coronary artery: The right coronary is completely occluded at its origin. It fills via collaterals from the distal LAD and septal perforators of the LAD. Left ventriculography: After injection of contrast in the left ventricle is known to be of normal size with diffuse moderate to severe left ventricular hypokinesis. Ejection fraction is estimated to be in the 35% range. This is diffusely hypokinetic. Aortic structures appear densely calcified. There is mitral annular calcification noted. Ascending aortography: After injection of contrast into the ascending aorta is noted to be of normal caliber. There is dense calcification noted on both anterior and posterior aortic womack. There appears to be at least 3+ aortic insufficiency noted. The aortic valve itself is calcified. Right femoral sheath angiography: After injection into the right femoral arterial sheath appears to enter the common femoral above the bifurcation. No evidence of significant stenosis of the distal iliac, common femoral bifurcation be noted based on this limited angiographic study. Conclusions: 1: Severe tribal coronary disease involving primarily the proximal circumflex and a totally occluded right which fills via collaterals from the left system. 2: Branch vessel disease involving the LAD 3: Moderate collaterals from the septal perforators and distal LAD to the right coronary artery. 4: At least 3+ aortic insufficiency by this study 5: Moderate pulmonary hypertension without evidence of right heart failure 6: Minx closure right femoral arteriotomy site Discussion recommendations: Patient presents with worsening LV function. By this study she has significant two-vessel disease involving the circumflex and right coronary arteries. Her LV function is worsening. It does not show evidence of chronic enlargement and you would see with severe aortic insufficiency although it likely is playing some role in her worsening LV function. I do not know that she is an optimal candidate for aortic valve replacement in this situation and with blood pressure control and diuresis she may improve clinically. Anesthesia: moderate conscious sedation Surgeon / Physician: Raul Hall - Medications / Follow-up
--- NOTE | 2017-03-20 15:03 | EKG Report ---
Stationary ECG Study [facility] Test Date: 03/20/2017 3:03:11 PM Pat Name: THADDEUS AN Department: Room: 277 Gender: F Gear Straightener: SINDHU : 1940 Requested by: Raul Hall Order Number: [id number] Reading MD: RAUL HALL Intervals [place] Rate: 75 P: 26 OR: 175 QRS: 61 QRSD: 92 T: 178 QT: 458 QTc: 487 Interpretive Statements SINUS RHYTHM LOW QRS VOLTAGE IN PRECORDIAL LEADS POSSIBLE ANTERIOR MYOCARDIAL INFARCTION, OF INDETERMINATE AGE MODERATE T-WAVE ABNORMALITY, CONSIDER LATERAL ISCHEMIA Electronically Signed On 03-22-17 17:01:12 CDT by RAUL HALL [email or web address]
[2017-03-20] MEDS: ATORVASTATIN 80 MG TABLET PO SCH (21:57)
[2017-03-21] MEDS: ALBUTEROL/IPRATROPIUM 3 ML NEB RESP TX SCH ×5 (02:58→20:23)
[2017-03-21 05:59] LABS: Calcium 8.5 MG/DL (8.5-10.1); Potassium 3.8 MMOL/L (3.5-5.1)
[2017-03-21] MEDS: FUROSEMIDE 40 MG TABLET PO SCH (08:24)
[2017-03-21] MEDS: CARVEDILOL 12.5 MG TABLET PO SCH ×2 (08:25→22:09)
[2017-03-21] MEDS: hydrALAZINE 25 MG TABLET PO SCH ×3 (08:25→22:09)
[2017-03-21] MEDS: CLOTRIMAZOLE/BETAMETHASONE CREAM 15 GM TUBE TOP SCH ×2 (08:25→22:10)
[2017-03-21] MEDS: ENOXAPARIN 60 MG/0.6 ML SYRINGE SUBCUT SCH ×2 (08:25→19:46)
[2017-03-21] MEDS: ISOSORBIDE MONONITRATE 30 MG TABLET PO SCH (08:25)
[2017-03-21] MEDS: MULTIVITAMIN (CENTRUM) TABLET PO SCH (08:25)
[2017-03-21] MEDS: ASPIRIN EC 81 MG TABLET PO SCH (08:25)
[2017-03-21] MEDS: CLOPIDOGREL 75 MG TABLET PO SCH (08:25)
[2017-03-21] MEDS: INSULIN REGULAR 100 UNIT/ML SUBCUT SCH ×4 (08:25→22:09)
[2017-03-21] MEDS: OFLOXACIN 0.3% OPH SOLN 10 ML BOTTLE LEFT EYE SCH ×4 (08:26→22:10)
[2017-03-21] MEDS: POLYVINYL ALCOHOL 1.4% OPH SOLN 15 ML BOTTLE BOTH EYES SCH ×4 (08:26→22:10)
[2017-03-21] MEDS: SACUBITRIL/VALSARTAN 49-51 MG TABLET PO SCH (08:26)
--- NOTE | 2017-03-21 14:40 | Cardiology Progress Note ---
Assessment and Plan (1) Aortic insufficiency Status: Acute Assessment and plan: This patient has at least moderate aortic insufficiency. I think she is a marginal candidate for aortic valve replacement I would be inclined to want to continue pressing on with medications. I do not have any reason to think that she would be in need of aortic valve replacement anytime soon. Current Visit: Yes Qualifiers: Cardiac valve disease etiology: nonrheumatic Qualified Code(s): I35.1 - Nonrheumatic aortic (valve) insufficiency (2) Congestive heart failure Status: Acute Assessment and plan: Her end diastolic pressures were in the 9 range yesterday. She has moderate pulmonary hypertension with systolic PA pressures in the 40 range. We will continue aggressive blood pressure control. Current Visit: Yes (3) Coronary artery disease Status: Chronic Current Visit: Yes Qualifiers: Coronary Disease-Associated Artery/Lesion type: [place] artery [place] vs. transplanted heart: [place] heart Associated angina: without angina Qualified Code(s): I25.10 - Atherosclerotic heart disease of [place] coronary artery without angina pectoris (4) Essential hypertension Status: Chronic Current Visit: Yes Cardiology - PN: Subj Interval history: This patient has had a reasonable day today post cath yesterday. Findings are consistent with fairly well compensated LV dysfunction with EDP in the 9 range. She is easily confused and a little agitated. She requires a diaper. She is relatively comfortable but complains of shortness of breath much constantly. We will repeat a BNP and see where we are with that. Her counts are stable and her renal function is reasonably stable at 1.4 creatinine. Her GFR is in the 40 range. Exam (Progress Note) - Constitutional Vitals: Period Temp Pulse Resp BP Sys/Pina Pulse Ox Last 24 Hr 98.0 F-100.0 F 73-95 16-20 110-152/49-91 86-99 Exam: General:no acute distress. alert and oriented, mood and affect are normal HEENT: no new lesions, sclerae are clear, mouth and pharynx benign Neck: supple, trachea midline, no JVD noted Lungs: no rales ronchi or wheeze is noted. pt comfortable without accesory muscle use to assist with breathing CV: RRR a murmur is noted. There is no left. The PMI is lateral. Abd: soft and nontender, BSNA, no masses. Ext: no cyanosis, clubbing or edema Neuro: grossly intact without focal neurologic deficit. Result/EKG - Labs CBC & BMP: 03/20/17 04:33 03/21/17 04:59 Labs: Laboratory Results - last 24 hr 03/20/17 03/20/17 03/20/17 14:42 15:19 20:13 Sodium Potassium Chloride Carbon Dioxide Anion Gap BUN Creatinine GFR Calculation BUN/Creatinine Ratio Glucose POC Glucose 199 H 257 H 394 H Calculated Osmolality Calcium 03/21/17 03/21/17 03/21/17 04:59 07:52 11:30 Sodium 143 Potassium 3.8 Chloride 104 Carbon Dioxide 28 Anion Gap 14.8 BUN 30 H Creatinine 1.40 H GFR Calculation 34 BUN/Creatinine Ratio 21.00 H Glucose 141 H POC Glucose 183 H 270 H Calculated Osmolality 292.0 Calcium 8.5 03/21/17 12:01 Sodium Potassium Chloride Carbon Dioxide Anion Gap BUN Creatinine GFR Calculation BUN/Creatinine Ratio Glucose POC Glucose 314 H Calculated Osmolality Calcium Quality Measures - VTE Contraindication to Pharmacological VTE Prophylaxis: High Risk of Bleeding Specialty Discharge - Follow Up or Referrals
--- NOTE | 2017-03-21 14:49 | Hospitalist Progress Note ---
Hospitalist: Subjective Interval history: Patient reports her shortness of breath is better. She denies any chest pain, nausea, vomiting. She does report some intermittent lightheadedness. She does state that she is tolerating oral intake. Last bowel movement yesterday. Exam - Constitutional Vitals: Period Temp Pulse Resp BP Sys/Pina Pulse Ox Last 24 Hr 98.0 F-100.0 F 73-95 16-20 110-152/49-91 86-99 Exam: Awake alert no acute distress Regular rate and rhythm, 3/6 diastolic murmur Clear to auscultation, diminished at the bases nonlabored Abdomen is soft nontender nondistended hypoactive bowel sounds Extremities are warm and well-perfused. No clubbing cyanosis or edema Results - Labs CBC & BMP: 03/20/17 04:33 03/21/17 04:59 - Impressions Catheterization report reveals 1: Severe [place] coronary disease involving primarily the proximal circumflex and a totally occluded right which fills via collaterals from the left system. 2: Branch vessel disease involving the LAD 3: Moderate collaterals from the septal perforators and distal LAD to the right coronary artery. 4: At least 3+ aortic insufficiency by this study 5: Moderate pulmonary hypertension without evidence of right heart failure 6: Minx closure right femoral arteriotomy site (1) Acute systolic and diastolic congestive heart failure exacerbation EF 35% with Moderate AI and 2V CAD per cath Status: Acute Assessment and plan: - s/p LAD drip and is now on oral lasix. She will have right and left heart cath 03/20 as troponins katy and peaked at 2.1. - Cath showed 2V disease and she requested medical management - Cont medical management (plavix, lipitor, coreg, hydralazine, entresto, imdur - BP under better control with oral hydralazine added). Her creatinine went from 1.2 to 1.4. May need to consider holding entresto as her creatinine may not be able to tolerate it. 2) NSTEMI in patient with CAD - medical management 3)Acute hypoxic respiratory failure due to CHF exacerbation- improved 4) Essential HTN- controlled. - Cont medical mgt 5)SALUD on CKD3 - Holding entresto. 6) Type 2 DM- stop glimepiride. start glipizide and Januvia renally dosed. Cont SSI. 7) Anemia- Cheondoism 8) Dispo- will return home at discharge. D/W pt and nurse and all questions answered. Quality Measures - VTE Contraindication to Pharmacological VTE Prophylaxis: High Risk of Bleeding Specialty Discharge - Follow Up or Referrals
[2017-03-21] MEDS: glipiZIDE 5 MG TABLET PO SCH (16:27)
[2017-03-21] MEDS: sitaGLIPtin 25 MG TABLET PO SCH (22:08)
[2017-03-21] MEDS: ATORVASTATIN 80 MG TABLET PO SCH (22:08)
[2017-03-21] MEDS: CYCLOBENZAPRINE 10 MG TABLET PO PRN (22:21)
[2017-03-22] MEDS: ALBUTEROL/IPRATROPIUM 3 ML NEB RESP TX SCH ×7 (04:19→23:58)
[2017-03-22 05:37] LABS: Eosinophils # 0.1 10*3/uL (0.0-0.87); Eosinophils % 1.7 % (0.00-10.9); Hematocrit 30.4 VOL% (35.7-47.0); Immature Granulocytes % 0.3 %; Immature Granulocytes Absolute 0.02 #; Lymphocytes # 2.1 10*3/uL (1.4-4.0); Lymphocytes % 26.6 % (21.3-54.2); Mean Corpuscular HGB Conc 32.9 GM/DL (32-36); Mean Corpuscular Hemoglobin 28 PG (27-34); Mean Corpuscular Volume 85.4 FL (87-102); Mean Platelet Volume 10.2 FL (9.6-12.0); Monocytes # 0.9 10*3/uL (0.11-0.8); Monocytes % 11.8 % (1.7-12.7); Neutrophils # 4.7 10*3/uL (1.4-7.4); Neutrophils % 59.6 % (38.7-73.9); Platelet Count 277 T/CUMM (130-400); Red Blood Count 3.56 MC/CUMM (3.8-5.5); Red Cell Distribution Width 13.8 % (9.3-17.3); White Blood Count 7.9 T/CUMM (4-12)
[2017-03-22 06:17] LABS: Calcium 7.8 MG/DL (8.5-10.1); Magnesium 2.3 MG/DL (1.8-2.4); Osmolality,Calculated 290.4 MOS/KG (273-304); Potassium 3.9 MMOL/L (3.5-5.1)
[2017-03-22] MEDS: INSULIN REGULAR 100 UNIT/ML SUBCUT SCH ×4 (07:56→22:04)
[2017-03-22] MEDS: ASPIRIN EC 81 MG TABLET PO SCH (09:47)
[2017-03-22] MEDS: CARVEDILOL 12.5 MG TABLET PO SCH ×2 (09:47→21:57)
[2017-03-22] MEDS: MULTIVITAMIN (CENTRUM) TABLET PO SCH (09:47)
[2017-03-22] MEDS: ISOSORBIDE MONONITRATE 30 MG TABLET PO SCH (09:47)
[2017-03-22] MEDS: ENOXAPARIN 80 MG/0.8 ML SYRINGE SUBCUT SCH (09:47)
[2017-03-22] MEDS: glipiZIDE 5 MG TABLET PO SCH ×2 (09:47→17:23)
[2017-03-22] MEDS: hydrALAZINE 25 MG TABLET PO SCH ×3 (09:47→21:57)
[2017-03-22] MEDS: CLOPIDOGREL 75 MG TABLET PO SCH (09:47)
[2017-03-22] MEDS: CLOTRIMAZOLE/BETAMETHASONE CREAM 15 GM TUBE TOP SCH ×2 (09:48→21:57)
[2017-03-22] MEDS: OFLOXACIN 0.3% OPH SOLN 10 ML BOTTLE LEFT EYE SCH ×4 (09:48→21:57)
[2017-03-22] MEDS: POLYVINYL ALCOHOL 1.4% OPH SOLN 15 ML BOTTLE BOTH EYES SCH ×4 (09:48→21:57)
[2017-03-22] MEDS: FUROSEMIDE 40 MG TABLET PO SCH (09:49)
[2017-03-22] MEDS: ENOXAPARIN 60 MG/0.6 ML SYRINGE SUBCUT SCH (10:07)
--- NOTE | 2017-03-22 13:41 | Hospitalist Progress Note ---
Hospitalist: Subjective Interval history: Patient reports her shortness of breath is better. She does have a dry cough. She denies any chest pain. She is tolerating oral intake and had a small bowel movement yesterday. Exam - Constitutional Vitals: Period Temp Pulse Resp BP Sys/Pina Pulse Ox Last 24 Hr 97.8 F-98.9 F 70-88 18-22 108-157/46-83 94-99 Exam: Awake alert no acute distress Regular rate and rhythm, 3/6 diastolic murmur Clear to auscultation, diminished at the bases nonlabored, occasional scattered posterior lung rales Abdomen is soft nontender nondistended hypoactive bowel sounds Extremities are warm and well-perfused. No clubbing cyanosis or edema Results - Labs CBC & BMP: 03/22/17 04:22 03/22/17 04:22 - Impressions (1) Acute systolic and diastolic congestive heart failure exacerbation EF 35% with Moderate AI and 2V CAD per cath Status: Acute Assessment and plan: - s/p LAD drip and is now on oral lasix. We may need to consider holding the Lasix temporarily. Will defer to cardiology. Right and left heart cath 03/20 reviewed. troponins katy and peaked at 2.1. - Cath showed 2V disease and she requested medical management - Cont medical management (plavix, lipitor, coreg, hydralazine, imdur- BP under better control with oral hydralazine added). Her creatinine went from 1.2 to 1.4 to 1.9. Holding entresto for now as her creatinine may not be able to tolerate it. 2) NSTEMI in patient with CAD - medical management 3)Acute hypoxic respiratory failure due to CHF exacerbation- improved 4) Essential HTN- controlled. - Cont medical mgt 5)SALUD on CKD3 - Holding entresto. May need to consider holding Lasix 6) Type 2 DM-blood sugars are better controlled on glipizide and Januvia renally dose. Holding glimepiride. Cont SSI. 7) Anemia- Nondenominational 8) Dispo- will return home at discharge. D/W pt and nurse and all questions answered. Follow-up cardiology's Recs. Quality Measures - VTE Contraindication to Pharmacological VTE Prophylaxis: High Risk of Bleeding Specialty Discharge - Follow Up or Referrals
--- NOTE | 2017-03-22 16:30 | Cardiology Progress Note ---
I, Ruby You RN, am scribing for, and in the presence of, Raul Hall MD 16:29. Assessment and Plan - Time spent with patient Time spent with patient: Greater than 30 minutes (1) Aortic insufficiency Status: Acute Assessment and plan: Continue offloading as tolerated. Continue medical management at this point. Current Visit: Yes Qualifiers: Cardiac valve disease etiology: nonrheumatic Qualified Code(s): I35.1 - Nonrheumatic aortic (valve) insufficiency (2) Congestive heart failure Status: Acute Assessment and plan: Her CHF appears to be improving. I think she is nearing maximal hospital benefit. Current Visit: Yes (3) Diabetes mellitus type 2 in obese Status: Acute Current Visit: Yes (4) Essential hypertension Status: Chronic Current Visit: Yes (5) Hyperlipidemia Status: Chronic Current Visit: Yes Qualifiers: Hyperlipidemia type: pure hypercholesterolemia Qualified Code(s): E78.00 - Pure hypercholesterolemia, unspecified; E78.0 - Pure hypercholesterolemia Cardiology - PN: Subj Interval history: This patient is undergone evaluation of her coronary anatomy. She has a densely calcified proximal circumflex stenosis as well as other significant disease which I think is best served by treating medically. She has at least moderate aortic insufficiency and we are going to treat that medically. I do not think she is an optimal candidate for aortic valve replacement. She has been stable well compensated is overall slowly improved to the point that I think she can be discharged in the next several days. Exam (Progress Note) - Constitutional Vitals: Period Temp Pulse Resp BP Sys/Pina Pulse Ox Last 24 Hr 97.8 F-98.9 F 70-88 18-22 108-157/46-83 94-99 Exam: General:no acute distress. alert and oriented, mood and affect are normal HEENT: no new lesions, sclerae are clear, mouth and pharynx benign Neck: supple, trachea midline, no JVD noted Lungs: no rales ronchi or wheeze is noted. pt comfortable without accesory muscle use to assist with breathing CV: RRR ai murmur is noted. There is no lift. The PMI is lateral. Abd: soft and nontender, BSNA, no masses. Ext: no cyanosis, clubbing or edema Neuro: grossly intact without focal neurologic deficit. Result/EKG - Labs CBC & BMP: 03/22/17 04:22 03/22/17 04:22 Lab Results: I have reviewed the past 24 hour labs Labs: Laboratory Results - last 24 hr 03/21/17 03/21/17 03/22/17 16:07 20:31 04:22 WBC RBC Hgb Hct MCV MCH MCHC RDW Plt Count MPV Neut % (Auto) Lymph % (Auto) Benzie % (Auto) Eos % (Auto) Baso % (Auto) Neut # (Auto) Lymph # (Auto) Benzie # (Auto) Eos # (Auto) Baso # (Auto) Immature Gran % Nucleated RBC % Immature Gran # Nucleated RBCs # Sodium Potassium Chloride Carbon Dioxide Anion Gap BUN Creatinine GFR Calculation BUN/Creatinine Ratio Glucose POC Glucose 253 H 152 H Calculated Osmolality Calcium Magnesium B-Natriuretic Peptide 2485 H 03/22/17 03/22/17 03/22/17 04:22 04:22 07:38 WBC 7.9 RBC 3.56 L Hgb 10.0 L Hct 30.4 L MCV 85.4 L MCH 28 MCHC 32.9 RDW 13.8 Plt Count 277 MPV 10.2 Neut % (Auto) 59.6 Lymph % (Auto) 26.6 Benzie % (Auto) 11.8 Eos % (Auto) 1.7 Baso % (Auto) 0.0 Neut # (Auto) 4.7 Lymph # (Auto) 2.1 Benzie # (Auto) 0.9 H Eos # (Auto) 0.1 Baso # (Auto) 0.0 Immature Gran % 0.3 Nucleated RBC % 0.0 Immature Gran # 0.02 Nucleated RBCs # 0.00 Sodium 140 Potassium 3.9 Chloride 103 Carbon Dioxide 26 Anion Gap 14.9 BUN 40 H D Creatinine 1.90 H GFR Calculation 23 BUN/Creatinine Ratio 21.00 H Glucose 133 H POC Glucose 147 H Calculated Osmolality 290.4 Calcium 7.8 L Magnesium 2.3 B-Natriuretic Peptide 03/22/17 12:04 WBC RBC Hgb Hct MCV MCH MCHC RDW Plt Count MPV Neut % (Auto) Lymph % (Auto) Benzie % (Auto) Eos % (Auto) Baso % (Auto) Neut # (Auto) Lymph # (Auto) Benzie # (Auto) Eos # (Auto) Baso # (Auto) Immature Gran % Nucleated RBC % Immature Gran # Nucleated RBCs # Sodium Potassium Chloride Carbon Dioxide Anion Gap BUN Creatinine GFR Calculation BUN/Creatinine Ratio Glucose POC Glucose 278 H Calculated Osmolality Calcium Magnesium B-Natriuretic Peptide - EKG EKG results: interpreted by me, no acute changes Quality Measures - VTE Contraindication to Pharmacological VTE Prophylaxis: High Risk of Bleeding Specialty Discharge - Follow Up or Referrals Rafael Thakur Wesley, MD, personally performed the services described in this documentation, ascribed by Ruby You RN in my presence, and it is both accurate and complete 629 .
[2017-03-22] MEDS: CYCLOBENZAPRINE 10 MG TABLET PO PRN (21:56)
[2017-03-22] MEDS: ATORVASTATIN 80 MG TABLET PO SCH (21:57)
[2017-03-22] MEDS: sitaGLIPtin 25 MG TABLET PO SCH (22:04)
[2017-03-23] MEDS: ALBUTEROL/IPRATROPIUM 3 ML NEB RESP TX SCH ×6 (04:46→23:52)
[2017-03-23 05:30] LABS: Basophils % 0.1 % (0.0-0.8); Eosinophils # 0.1 10*3/uL (0.0-0.87); Eosinophils % 1.2 % (0.00-10.9); Hematocrit 31.7 VOL% (35.7-47.0); Hemoglobin 10.5 GM/DL (12.0-16.0); Immature Granulocytes % 0.5 %; Immature Granulocytes Absolute 0.04 #; Lymphocytes # 1.9 10*3/uL (1.4-4.0); Lymphocytes % 22.3 % (21.3-54.2); Mean Corpuscular HGB Conc 33.1 GM/DL (32-36); Mean Corpuscular Hemoglobin 28 PG (27-34); Mean Corpuscular Volume 84.1 FL (87-102); Mean Platelet Volume 10.1 FL (9.6-12.0); Monocytes # 1.1 10*3/uL (0.11-0.8); Monocytes % 13.1 % (1.7-12.7); Neutrophils # 5.2 10*3/uL (1.4-7.4); Neutrophils % 62.8 % (38.7-73.9); Platelet Count 304 T/CUMM (130-400); Red Blood Count 3.77 MC/CUMM (3.8-5.5); Red Cell Distribution Width 13.9 % (9.3-17.3); White Blood Count 8.3 T/CUMM (4-12)
[2017-03-23 06:02] LABS: Calcium 8.2 MG/DL (8.5-10.1); Magnesium 2.4 MG/DL (1.8-2.4); Osmolality,Calculated 284.8 MOS/KG (273-304)
[2017-03-23] MEDS: ENOXAPARIN 80 MG/0.8 ML SYRINGE SUBCUT SCH (10:01)
[2017-03-23] MEDS: INSULIN REGULAR 100 UNIT/ML SUBCUT SCH ×4 (10:01→21:56)
[2017-03-23] MEDS: hydrALAZINE 25 MG TABLET PO SCH ×3 (10:02→21:46)
[2017-03-23] MEDS: ASPIRIN EC 81 MG TABLET PO SCH (10:02)
[2017-03-23] MEDS: FUROSEMIDE 40 MG TABLET PO SCH (10:02)
[2017-03-23] MEDS: CLOPIDOGREL 75 MG TABLET PO SCH (10:02)
[2017-03-23] MEDS: ISOSORBIDE MONONITRATE 30 MG TABLET PO SCH (10:02)
[2017-03-23] MEDS: POLYVINYL ALCOHOL 1.4% OPH SOLN 15 ML BOTTLE BOTH EYES SCH ×4 (10:02→21:47)
[2017-03-23] MEDS: CARVEDILOL 12.5 MG TABLET PO SCH ×2 (10:02→21:46)
[2017-03-23] MEDS: glipiZIDE 5 MG TABLET PO SCH ×2 (10:02→17:28)
[2017-03-23] MEDS: CLOTRIMAZOLE/BETAMETHASONE CREAM 15 GM TUBE TOP SCH ×2 (10:03→21:46)
[2017-03-23] MEDS: OFLOXACIN 0.3% OPH SOLN 10 ML BOTTLE LEFT EYE SCH ×4 (10:03→21:47)
[2017-03-23] MEDS: MULTIVITAMIN (CENTRUM) TABLET PO SCH (10:09)
[2017-03-23] MEDS ORDERED: BISACODYL 10 MG SUPP RECTAL ONE (14:55)
--- NOTE | 2017-03-23 14:56 | Hospitalist Progress Note ---
Hospitalist: Subjective Interval history: Pt seen this am around 9:30 am. She denies any chest pain and states SOB is better. She is getting a washup sitting on the side of bed. Tolerating po. No diarrhea or constipation but no BM recorded in days. Exam - Constitutional Vitals: Period Temp Pulse Resp BP Sys/Pina Pulse Ox Last 24 Hr 95.1 F-99.8 F 77-86 18-20 111-147/44-67 93-100 Exam: Awake alert no acute distress Regular rate and rhythm, 3/6 diastolic murmur Clear to auscultation, diminished at the bases nonlabored, occasional scattered posterior lung rales Abdomen is soft nontender nondistended hypoactive bowel sounds Extremities are warm and well-perfused. No clubbing cyanosis or edema Results - Labs CBC & BMP: 03/23/17 05:00 03/23/17 05:00 - Impressions (1) Acute systolic and diastolic congestive heart failure exacerbation EF 35% with Moderate AI and 2V CAD per cath Status: Acute Assessment and plan: - s/p LAD drip and is now on oral lasix but creatinine worsening. Will dc Lasix today. Awaiting cardiology to see today. 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 - Right and left heart cath 03/20 reviewed. troponins katy and peaked at 2.1. - Cath showed 2V disease and she requested medical management - Cont medical management (plavix, lipitor, coreg, hydralazine, imdur- BP under better control with oral hydralazine added). Her creatinine went from 1.2 to 1.4 to 1.9 now 2.6. Holding entresto for now as her creatinine may not be able to tolerate it. 2) NSTEMI in patient with CAD - medical management 3)Acute hypoxic respiratory failure due to CHF exacerbation- improved. On RA now 4) Essential HTN- controlled. - Cont medical mgt 5)SALUD on CKD3 - Holding entresto. Stop Lasix and start Mucomyst. Urine studies and us renal. Consult Renal. ? Low dose sodium bicarb drip. Watch for overload 6) Type 2 DM-blood sugars are better controlled on glipizide and Januvia renally dose. Will increase Glipizide to 5mg po BID but will be careful about being too aggressive. Given she is elderly, can have HgbA1c around 8 as hypoglycemia is worse in the elderly. Holding glimepiride. Cont SSI. 7) Anemia- Restoration 8) Dispo- will return home at discharge. D/W pt and nurse and all questions answered. Awaiting cardiology recs. Quality Measures - VTE Contraindication to Pharmacological VTE Prophylaxis: High Risk of Bleeding Specialty Discharge - Follow Up or Referrals
--- NOTE | 2017-03-23 15:27 | Cardiology Progress Note ---
Assessment and Plan - Time spent with patient Time spent with patient: Less than 30 minutes (1) Aortic insufficiency Status: Acute Current Visit: Yes Qualifiers: Cardiac valve disease etiology: nonrheumatic Qualified Code(s): I35.1 - Nonrheumatic aortic (valve) insufficiency (2) Congestive heart failure Status: Acute Current Visit: Yes (3) Diabetes mellitus type 2 in obese Status: Chronic Current Visit: Yes (4) Essential hypertension Status: Chronic Current Visit: Yes (5) Hyperlipidemia Status: Chronic Current Visit: Yes Qualifiers: Hyperlipidemia type: pure hypercholesterolemia Qualified Code(s): E78.00 - Pure hypercholesterolemia, unspecified; E78.0 - Pure hypercholesterolemia Cardiology - PN: Subj Interval history: 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 Moscoso is a 76 year old female with a history of coronary artery disease, aortic insufficiency, mitral regurgitation, congestive heart failure, diabetes, hyperlipidemia, and hypertension who presented with progressive shortness of breath and a feeling of "smothering." Echocardiogram on 03/17/17 revealed depressed EF of 30%, mild LVH, grade 3 diastolic dysfunction. She is a [employer] and this will play into any decision for surgery especially given the fact that she is anemic. On 03/20/17 she underwent LHC which revealed: Conclusions: 1: Severe the [place] coronary disease involving primarily the proximal circumflex and a totally occluded right which fills via collaterals from the left system. 2: Branch vessel disease involving the LAD 3: Moderate collaterals from the septal perforators and distal LAD to the right coronary artery. 4: At least 3+ aortic insufficiency by this study 5: Moderate pulmonary hypertension without evidence of right heart failure 6: Minx closure right femoral arteriotomy site It was felt she would be best served by medical management. She has been improving over the past several days and was anticipated to be discharged today ; however, her creatinine has risen from 1.9 to 2.6. Her Lasix has been held and she has been started on gentle hydration. Nephrology has been consulted for their input. Given her low EF and elevated BNP throughout admission, she will need to be monitored closely for volume overload. ASSESSMENT/PLAN: 1. AORTIC INSUFFICIENCY - Will continue offloading as tolerated. Will continue medical management at this point. 2. CONGESTIVE HEART FAILURE - Her CHF had appeared to be improving. She did have some rales posteriorly today, but her Lasix has been held due to worsening renal function. Her lower extremity edema persists but seems to be stable. 3. DIABETES MELLITUS - Defer further management to hospital medicine. She is on accuchecks with sliding scale insulin. 4. HYPERTENSION - Currently well controlled. Will continue to monitor and adjust accordingly. 5. HYPERLIPIDEMIA - Continue lipid-lowering agent. Exam (Progress Note) - Constitutional Vitals: Period Temp Pulse Resp BP Sys/Pina Pulse Ox Last 24 Hr 95.1 F-99.8 F 77-86 18-20 111-147/44-67 93-100 Exam: General: Present: Appears Well, No Apparent Distress. Pleasant and cooperative. Appears comfortable. HEENT: Present: PERRL, Normocephaly, atraumatic. Mucus Membranes Moist. No jaundice noted. Conjunctiva moist and clear, sclerae anicteric Neck: Present: Supple Neck, Midline Trachea, No Masses, No Bruit, No tenderness Cardiac: Present: Regular Rate and Rhythm, aortic insufficiency murmur is noted. Lungs: Present: Bibasilar rales posteriorly, otherwise clear to auscultation. Neuro: Present: Awake, alert, and oriented x3. Moves all extremities well without hemiparesis or paralysis. Grossly Intact. Absent: Resting Tremor, Essential Tremor Abdomen: Present: Soft, Active Bowel Sounds, No Masses, Non-Tender, nondistended. No abdominal bruit or thrill noted. Skin: Present: Clear. Absent: Rash, No skin breakdown. Back: Normal inspection, no vertebral tenderness. Musculoskeletal: Present: No Fluid Collection, No Pain, Normal Range of Motion Extremities: Present: Normal Gait, No Clubbing, No Cyanosis, Upper Extr. Pulses 2+, Lower Extr. Pulses 2+, 2+ RLE edema, trace LLE edema. Capillary refill less than 3 seconds. Result/EKG - Labs CBC & BMP: 03/23/17 05:00 03/23/17 05:00 Lab Results: I have reviewed the past 24 hour labs Labs: Laboratory Results - last 24 hr 03/22/17 03/22/17 03/23/17 16:37 21:55 05:00 WBC 8.3 RBC 3.77 L Hgb 10.5 L Hct 31.7 L MCV 84.1 L MCH 28 MCHC 33.1 RDW 13.9 Plt Count 304 MPV 10.1 Neut % (Auto) 62.8 Lymph % (Auto) 22.3 [place] % (Auto) 13.1 H Eos % (Auto) 1.2 Baso % (Auto) 0.1 Neut # (Auto) 5.2 Lymph # (Auto) 1.9 [place] # (Auto) 1.1 H Eos # (Auto) 0.1 Baso # (Auto) 0.0 Immature Gran % 0.5 Nucleated RBC % 0.0 Immature Gran # 0.04 Nucleated RBCs # 0.00 Sodium Potassium Chloride Carbon Dioxide Anion Gap BUN Creatinine GFR Calculation BUN/Creatinine Ratio Glucose POC Glucose 213 H 203 H Calculated Osmolality Calcium Magnesium 03/23/17 03/23/17 03/23/17 05:00 08:02 11:09 WBC RBC Hgb Hct MCV MCH MCHC RDW Plt Count MPV Neut % (Auto) Lymph % (Auto) [place] % (Auto) Eos % (Auto) Baso % (Auto) Neut # (Auto) Lymph # (Auto) [place] # (Auto) Eos # (Auto) Baso # (Auto) Immature Gran % Nucleated RBC % Immature Gran # Nucleated RBCs # Sodium 137 Potassium 4.0 Chloride 101 Carbon Dioxide 24 Anion Gap 16.0 H BUN 47 H Creatinine 2.60 H GFR Calculation 16 BUN/Creatinine Ratio 18.00 Glucose 98 POC Glucose 156 H 287 H Calculated Osmolality 284.8 Calcium 8.2 L Magnesium 2.4 - EKG EKG results: interpreted by me, sinus rhythm Quality Measures - VTE Contraindication to Pharmacological VTE Prophylaxis: High Risk of Bleeding Specialty Discharge - Follow Up or Referrals
--- NOTE | 2017-03-23 16:11 | Ultrasound Report ---
History his acute renal failure Right kidney is 9.3 cm in length Left kidney is 10.1 cm in length Cortical echogenicity is normal No hydronephrosis seen bilaterally Bilateral pleural effusions noted Impression: 1. Bilateral pleural effusions. No sonographic renal abnormality seen PROCEDURE INTERPRETED AT [facility] DEPARTMENT OF RADIOLOGY Final Report Signed by: Dr. Ana Luisa Peterson
[2017-03-23] MEDS: ENOXAPARIN 30 MG/0.3 ML SYRINGE SUBCUT SCH (16:51)
[2017-03-23] MEDS: SODIUM CHLORIDE IV SCH (17:20)
[2017-03-23] MEDS: SODIUM ACETATE IV SCH (17:20)
[2017-03-23] MEDS: [UNRECOGNIZED DRUG - OTHER] IV SCH (17:20)
[2017-03-23] MEDS: sitaGLIPtin 25 MG TABLET PO SCH (21:46)
[2017-03-23] MEDS: CYCLOBENZAPRINE 10 MG TABLET PO PRN (21:46)
[2017-03-23] MEDS: ACETYLCYSTEINE 600 MG CAPSULE PO SCH (21:46)
[2017-03-23] MEDS: ATORVASTATIN 80 MG TABLET PO SCH (21:46)
[2017-03-24] MEDS: ALBUTEROL/IPRATROPIUM 3 ML NEB RESP TX SCH ×6 (03:10→23:13)
[2017-03-24 04:13] LABS: Basophils % 0.1 % (0.0-0.8); Eosinophils # 0.1 10*3/uL (0.0-0.87); Eosinophils % 1.4 % (0.00-10.9); Hemoglobin 10.1 GM/DL (12.0-16.0); Immature Granulocytes % 0.2 %; Immature Granulocytes Absolute 0.02 #; Lymphocytes # 1.5 10*3/uL (1.4-4.0); Lymphocytes % 17.5 % (21.3-54.2); Mean Corpuscular HGB Conc 33.7 GM/DL (32-36); Mean Corpuscular Hemoglobin 28 PG (27-34); Mean Corpuscular Volume 83.8 FL (87-102); Mean Platelet Volume 10.1 FL (9.6-12.0); Monocytes # 1.1 10*3/uL (0.11-0.8); Monocytes % 12.7 % (1.7-12.7); Neutrophils % 68.1 % (38.7-73.9); Platelet Count 317 T/CUMM (130-400); Red Blood Count 3.58 MC/CUMM (3.8-5.5); Red Cell Distribution Width 13.5 % (9.3-17.3); White Blood Count 8.8 T/CUMM (4-12)
[2017-03-24 04:39] LABS: Calcium 8.2 MG/DL (8.5-10.1); Magnesium 2.4 MG/DL (1.8-2.4); Osmolality,Calculated 285.8 MOS/KG (273-304); Potassium 4.2 MMOL/L (3.5-5.1)
[2017-03-24] MEDS: INSULIN REGULAR 100 UNIT/ML SUBCUT SCH ×4 (08:05→21:17)
[2017-03-24] MEDS: hydrALAZINE 25 MG TABLET PO SCH (08:06)
[2017-03-24] MEDS: MULTIVITAMIN (CENTRUM) TABLET PO SCH (08:07)
[2017-03-24] MEDS: glipiZIDE 5 MG TABLET PO SCH ×2 (08:07→17:33)
[2017-03-24] MEDS: POLYVINYL ALCOHOL 1.4% OPH SOLN 15 ML BOTTLE BOTH EYES SCH ×4 (08:07→21:18)
[2017-03-24] MEDS: CLOTRIMAZOLE/BETAMETHASONE CREAM 15 GM TUBE TOP SCH ×2 (08:07→21:19)
[2017-03-24] MEDS: CLOPIDOGREL 75 MG TABLET PO SCH (08:07)
[2017-03-24] MEDS: ACETYLCYSTEINE 600 MG CAPSULE PO SCH ×2 (08:07→21:18)
[2017-03-24] MEDS: CARVEDILOL 12.5 MG TABLET PO SCH ×2 (08:07→21:17)
[2017-03-24] MEDS: ISOSORBIDE MONONITRATE 30 MG TABLET PO SCH (08:07)
[2017-03-24] MEDS: ASPIRIN EC 81 MG TABLET PO SCH (08:07)
[2017-03-24] MEDS: OFLOXACIN 0.3% OPH SOLN 10 ML BOTTLE LEFT EYE SCH ×4 (08:07→21:18)
[2017-03-24] MEDS ORDERED: ENOXAPARIN 60 MG/0.6 ML SYRINGE SUBCUT SCH (09:00)
--- NOTE | 2017-03-24 10:22 | XRay Report ---
History: CHF Date: 03/24/2017 Study: Chest x-ray PA and lateral Comparison exam: March 18, 2017 There is stable cardiomegaly. The mediastinal contours are stable. The pulmonary vasculature is slightly prominent, though improved. There is hazy bibasilar edema and mild bilateral pleural effusion, though this is improved. There is platelike atelectasis in the lower lungs. Osseous structures are unchanged. Impression: Cardiomegaly and evidence of improving CHF with reduced bibasilar pulmonary edema compared to the previous study. Platelike atelectasis in the lower lungs PROCEDURE INTERPRETED AT [facility] DEPARTMENT OF RADIOLOGY Final Report Signed by: Dr. Anna Isaacs
--- NOTE | 2017-03-24 10:59 | Hospitalist Progress Note ---
Hospitalist: Subjective Interval history: Pt states no change in SOB today. In fact she is not wearing oxygen at this time. No fever. No cp. Denies cough. Tolerating po. Exam - Constitutional Vitals: Period Temp Pulse Resp BP Sys/Pina Pulse Ox Last 24 Hr 98.3 F-99.6 F 74-90 16-21 111-172/44-89 90-99 Exam: Awake alert no acute distress Regular rate and rhythm, 3/6 diastolic murmur Clear to auscultation, diminished at the bases nonlabored, Mild bibasilar rales Abdomen is soft nontender nondistended hypoactive bowel sounds Extremities are warm and well-perfused. No clubbing cyanosis. trace LE edema + SCDs in place Results - Labs CBC & BMP: 03/24/17 02:59 03/24/17 02:59 - Impressions (1) Acute systolic and diastolic congestive heart failure exacerbation EF 35% with Moderate AI and 2V CAD per cath Status: Acute Assessment and plan: - s/p LAD drip. Holding Entresto and Lasix due to rising creatinine - cardiology following. - Right and left heart cath 03/20 reviewed. troponins katy and peaked at 2.1. - Cath showed 2V disease and she requested medical management - Cont medical management (plavix, lipitor, coreg, hydralazine, imdur- BP under better control with oral hydralazine added). 2) NSTEMI in patient with CAD - medical management 3)Acute hypoxic respiratory failure due to CHF exacerbation- improved. On RA now with 2L NC as needed 4) Essential HTN- controlled. - Cont medical mgt 5)SALUD on CKD3 - Holding entresto and Lasix - Cont Mucomyst and gentle IVF. Urine studies reviewed and appears pre-renal/ possibly contrast induced. Renal U/S showed bilateral pleural effusions normal kidneys. - Serial labs - Renal following - Watch for fluid overload 6) Type 2 DM-blood sugars are better controlled on glipizide and Januvia renally dose. Cont Glipizide 5mg po BID and watch for hypoglycemia. Given she is elderly, can have HgbA1c around 8 as hypoglycemia is worse in the elderly. Holding glimepiride. Cont SSI. 7) Anemia- Buddhism 8) Dispo- will return home at discharge. D/W pt and all questions answered. Cardiology and renal following Quality Measures - VTE Contraindication to Pharmacological VTE Prophylaxis: High Risk of Bleeding Specialty Discharge - Follow Up or Referrals
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
[2017-03-24] MEDS: [UNRECOGNIZED DRUG - OTHER] IV SCH (14:18)
[2017-03-24] MEDS: SODIUM CHLORIDE IV SCH (14:18)
[2017-03-24] MEDS: SODIUM ACETATE IV SCH (14:18)
--- NOTE | 2017-03-24 15:46 | Cardiology Progress Note ---
Assessment and Plan (1) Aortic insufficiency Status: Acute Assessment and plan: Continue offloading as tolerated. Continue medical management at this point. Current Visit: Yes Qualifiers: Cardiac valve disease etiology: nonrheumatic Qualified Code(s): I35.1 - Nonrheumatic aortic (valve) insufficiency (2) Congestive heart failure Status: Acute Assessment and plan: Her CHF appears to be improving. I think she is nearing maximal hospital benefit. Current Visit: Yes (3) Diabetes mellitus type 2 in obese Status: Chronic Current Visit: Yes (4) Essential hypertension Status: Chronic Current Visit: Yes (5) Hyperlipidemia Status: Chronic Current Visit: Yes Qualifiers: Hyperlipidemia type: pure hypercholesterolemia Qualified Code(s): E78.00 - Pure hypercholesterolemia, unspecified; E78.0 - Pure hypercholesterolemia (6) Acute renal failure superimposed on chronic kidney disease Status: Acute Assessment and plan: Patient received 100 cc of intravenous contrast for her cardiac catheterization which is resulting in decreased GFR and worsening renal function which is being treated with intravenous fluids and Mucomyst. She is comfortable clinically does not appear to be volume overloaded we will continue close observation. Current Visit: Yes Cardiology - PN: Subj Interval history: 76-year-old lady who has at least moderate aortic insufficiency with calcified severe coronary disease total right occlusion with collaterals from left to right. I do not think she is an optimal candidate for surgery. She has moderate [place] hypertension and unfortunately has slipped into worsening renal function which is I think responding to increasing volume. Her urine output is picked up her creatinine hopefully will stabilize. She is comfortable without complaints related to shortness of breath or chest discomfort. We are going to continue close observation. She is tenuous from a volume standpoint related to her coronary and valvular heart disease and poor LV function. Exam (Progress Note) - Constitutional Vitals: Period Temp Pulse Resp BP Sys/Pina Pulse Ox Last 24 Hr 98.3 F-99.6 F 62-90 16-21 116-172/58-89 90-99 Exam: General:no acute distress. alert and oriented, mood and affect are normal HEENT: no new lesions, sclerae are clear, mouth and pharynx benign Neck: supple, trachea midline, no JVD noted Lungs: no rales ronchi or wheeze is noted. pt comfortable without accesory muscle use to assist with breathing CV: RRR ai murmur is noted. There is no lift. The PMI is lateral. Abd: soft and nontender, BSNA, no masses. Ext: no cyanosis, clubbing or edema Neuro: grossly intact without focal neurologic deficit. Result/EKG - Labs CBC & BMP: 03/24/17 02:59 03/24/17 02:59 Labs: Laboratory Results - last 24 hr 03/23/17 03/23/17 03/23/17 16:22 17:05 20:44 WBC RBC Hgb Hct MCV MCH MCHC RDW Plt Count MPV Neut % (Auto) Lymph % (Auto) [place] % (Auto) Eos % (Auto) Baso % (Auto) Neut # (Auto) Lymph # (Auto) [place] # (Auto) Eos # (Auto) Baso # (Auto) Immature Gran % Nucleated RBC % Immature Gran # Nucleated RBCs # Sodium Potassium Chloride Carbon Dioxide Anion Gap BUN Creatinine GFR Calculation BUN/Creatinine Ratio Glucose POC Glucose 177 H Calculated Osmolality Calcium Magnesium Urine Eosinophils Urine Myoglobin Urine Osmolality 263 Ur Random Creatinine Ur Random Sodium Ur Random Urea Nitrogn 03/23/17 03/23/17 03/23/17 20:44 20:44 20:44 WBC RBC Hgb Hct MCV MCH MCHC RDW Plt Count MPV Neut % (Auto) Lymph % (Auto) [place] % (Auto) Eos % (Auto) Baso % (Auto) Neut # (Auto) Lymph # (Auto) [place] # (Auto) Eos # (Auto) Baso # (Auto) Immature Gran % Nucleated RBC % Immature Gran # Nucleated RBCs # Sodium Potassium Chloride Carbon Dioxide Anion Gap BUN Creatinine GFR Calculation BUN/Creatinine Ratio Glucose POC Glucose Calculated Osmolality Calcium Magnesium Urine Eosinophils Urine Myoglobin Negative Urine Osmolality Ur Random Creatinine 127 Ur Random Sodium 10.0 Ur Random Urea Nitrogn 03/23/17 03/23/17 03/24/17 20:44 21:46 02:59 WBC 8.8 RBC 3.58 L Hgb 10.1 L Hct 30.0 L MCV 83.8 L MCH 28 MCHC 33.7 RDW 13.5 Plt Count 317 MPV 10.1 Neut % (Auto) 68.1 Lymph % (Auto) 17.5 L [place] % (Auto) 12.7 Eos % (Auto) 1.4 Baso % (Auto) 0.1 Neut # (Auto) 6.0 Lymph # (Auto) 1.5 [place] # (Auto) 1.1 H Eos # (Auto) 0.1 Baso # (Auto) 0.0 Immature Gran % 0.2 Nucleated RBC % 0.0 Immature Gran # 0.02 Nucleated RBCs # 0.00 Sodium Potassium Chloride Carbon Dioxide Anion Gap BUN Creatinine GFR Calculation BUN/Creatinine Ratio Glucose POC Glucose 227 H Calculated Osmolality Calcium Magnesium Urine Eosinophils Urine Myoglobin Urine Osmolality Ur Random Creatinine Ur Random Sodium Ur Random Urea Nitrogn 302 03/24/17 03/24/17 03/24/17 02:59 07:08 11:16 WBC RBC Hgb Hct MCV MCH MCHC RDW Plt Count MPV Neut % (Auto) Lymph % (Auto) [place] % (Auto) Eos % (Auto) Baso % (Auto) Neut # (Auto) Lymph # (Auto) [place] # (Auto) Eos # (Auto) Baso # (Auto) Immature Gran % Nucleated RBC % Immature Gran # Nucleated RBCs # Sodium 137 Potassium 4.2 Chloride 99 Carbon Dioxide 26 Anion Gap 16.2 H BUN 49 H Creatinine 2.80 H GFR Calculation 15 BUN/Creatinine Ratio 17.00 Glucose 93 POC Glucose 144 H 277 H Calculated Osmolality 285.8 Calcium 8.2 L Magnesium 2.4 Urine Eosinophils Urine Myoglobin Urine Osmolality Ur Random Creatinine Ur Random Sodium Ur Random Urea Nitrogn Quality Measures - VTE Contraindication to Pharmacological VTE Prophylaxis: High Risk of Bleeding Specialty Discharge - Follow Up or Referrals
[2017-03-24] MEDS: ENOXAPARIN 30 MG/0.3 ML SYRINGE SUBCUT SCH (17:33)
[2017-03-24] MEDS: ERGOCALCIFEROL 50,000 UNIT CAPSULE PO SCH (18:51)
[2017-03-24] MEDS: sitaGLIPtin 25 MG TABLET PO SCH (21:17)
[2017-03-24] MEDS: ATORVASTATIN 80 MG TABLET PO SCH (21:18)
[2017-03-24] MEDS: CYCLOBENZAPRINE 10 MG TABLET PO PRN (22:01)
[2017-03-25 04:49] LABS: Basophils % 0.1 % (0.0-0.8); Eosinophils # 0.1 10*3/uL (0.0-0.87); Eosinophils % 1.6 % (0.00-10.9); Hematocrit 29.6 VOL% (35.7-47.0); Hemoglobin 9.8 GM/DL (12.0-16.0); Immature Granulocytes % 0.4 %; Immature Granulocytes Absolute 0.03 #; Lymphocytes # 1.5 10*3/uL (1.4-4.0); Lymphocytes % 19.3 % (21.3-54.2); Mean Corpuscular HGB Conc 33.1 GM/DL (32-36); Mean Corpuscular Hemoglobin 28 PG (27-34); Mean Corpuscular Volume 83.4 FL (87-102); Mean Platelet Volume 10.1 FL (9.6-12.0); Monocytes # 1.1 10*3/uL (0.11-0.8); Monocytes % 14.2 % (1.7-12.7); Neutrophils # 4.9 10*3/uL (1.4-7.4); Neutrophils % 64.4 % (38.7-73.9); Platelet Count 294 T/CUMM (130-400); Red Blood Count 3.55 MC/CUMM (3.8-5.5); Red Cell Distribution Width 13.6 % (9.3-17.3); White Blood Count 7.6 T/CUMM (4-12)
[2017-03-25] MEDS: ALBUTEROL/IPRATROPIUM 3 ML NEB RESP TX SCH ×6 (05:00→23:41)
[2017-03-25 05:19] LABS: Calcium 8.1 MG/DL (8.5-10.1); Magnesium 2.6 MG/DL (1.8-2.4); Osmolality,Calculated 282.1 MOS/KG (273-304)
[2017-03-25 05:22] LABS: Risk Ratio 2.96; VLDL CHOLESTEROL 15.6 MG/DL
--- NOTE | 2017-03-25 08:00 | Hospitalist Progress Note ---
Hospitalist: Subjective Interval history: Pt states SOB is ok. No chest pain. Tolerating po well. No fever. Good UOP. She has been drinking several Cokes. Exam - Constitutional Vitals: Period Temp Pulse Resp BP Sys/Pina Pulse Ox Last 24 Hr 98 F-100.4 F 62-85 16-20 116-159/55-72 90-100 Exam: Awake alert no acute distress Regular rate and rhythm, 3/6 diastolic murmur Clear to auscultation, diminished at the bases nonlabored Abdomen is soft nontender nondistended hypoactive bowel sounds Extremities are warm and well-perfused. No clubbing cyanosis. trace LE edema + SCDs in place Results - Labs CBC & BMP: 03/25/17 03:42 03/25/17 03:42 - Impressions (1) Acute systolic and diastolic congestive heart failure exacerbation EF 35% with Moderate AI and 2V CAD per cath Status: Acute Assessment and plan: - s/p LAD drip. Holding Entresto and Lasix due to rising creatinine - cardiology following. - Right and left heart cath 03/20 reviewed. troponins katy and peaked at 2.1. - Cath showed 2V disease and she requested medical management - Cont medical management (plavix, lipitor, coreg, hydralazine, imdur- BP under better control with oral hydralazine added). 2) NSTEMI in patient with CAD - medical management 3)Acute hypoxic respiratory failure due to CHF exacerbation- improved. On RA now with 2L NC as needed 4) Essential HTN- controlled. - Cont medical mgt 5)SALUD on CKD3- improving - Holding entresto and Lasix - Cont Mucomyst and gentle IVF. Urine studies reviewed and appears pre-renal/ possibly contrast induced. Renal U/S showed bilateral pleural effusions normal kidneys. - Serial labs - Renal following - Watch for fluid overload 6) Type 2 DM-blood sugars are better controlled on glipizide and Januvia renally dose. Cont Glipizide 5mg po BID and watch for hypoglycemia. Given she is elderly, can have HgbA1c around 8 as hypoglycemia is worse in the elderly. Holding glimepiride. Cont SSI. 7) Anemia- Rastafarian 8) Dispo- will return home at discharge. Change SCDs to [place] D/W pt, sister, and nurse and all questions answered. Cardiology and renal following Quality Measures - VTE Contraindication to Pharmacological VTE Prophylaxis: High Risk of Bleeding Specialty Discharge - Follow Up or Referrals
[2017-03-25] MEDS: INSULIN REGULAR 100 UNIT/ML SUBCUT SCH ×4 (08:09→20:18)
[2017-03-25] MEDS: glipiZIDE 5 MG TABLET PO SCH ×2 (08:11→17:08)
[2017-03-25] MEDS: MULTIVITAMIN (CENTRUM) TABLET PO SCH (08:11)
[2017-03-25] MEDS: CARVEDILOL 12.5 MG TABLET PO SCH ×2 (08:11→20:19)
[2017-03-25] MEDS: CLOPIDOGREL 75 MG TABLET PO SCH (08:11)
[2017-03-25] MEDS: ASPIRIN EC 81 MG TABLET PO SCH (08:12)
[2017-03-25] MEDS: ACETYLCYSTEINE 600 MG CAPSULE PO SCH ×2 (08:12→20:19)
[2017-03-25] MEDS: OFLOXACIN 0.3% OPH SOLN 10 ML BOTTLE LEFT EYE SCH ×4 (08:12→20:21)
[2017-03-25] MEDS: CLOTRIMAZOLE/BETAMETHASONE CREAM 15 GM TUBE TOP SCH ×2 (08:12→20:24)
[2017-03-25] MEDS: POLYVINYL ALCOHOL 1.4% OPH SOLN 15 ML BOTTLE BOTH EYES SCH ×4 (08:12→20:21)
[2017-03-25] MEDS: ISOSORBIDE MONONITRATE 30 MG TABLET PO SCH (08:12)
--- NOTE | 2017-03-25 11:01 | Cardiology Progress Note ---
Assessment and Plan (1) Aortic insufficiency Status: Acute Assessment and plan: Continue offloading as tolerated. Continue medical management at this point. 03/25: Patient's AI is well compensated currently. We will continue diuresis once we have her euvolemic. Current Visit: Yes Qualifiers: Cardiac valve disease etiology: nonrheumatic Qualified Code(s): I35.1 - Nonrheumatic aortic (valve) insufficiency (2) Congestive heart failure Status: Acute Assessment and plan: Her CHF appears to be improving. I think she is nearing maximal hospital benefit. Current Visit: Yes (3) Diabetes mellitus type 2 in obese Status: Chronic Current Visit: Yes (4) Essential hypertension Status: Chronic Current Visit: Yes (5) Hyperlipidemia Status: Chronic Current Visit: Yes Qualifiers: Hyperlipidemia type: pure hypercholesterolemia Qualified Code(s): E78.00 - Pure hypercholesterolemia, unspecified; E78.0 - Pure hypercholesterolemia (6) Acute renal failure superimposed on chronic kidney disease Status: Acute Assessment and plan: Patient received 100 cc of intravenous contrast for her cardiac catheterization which is resulting in decreased GFR and worsening renal function which is being treated with intravenous fluids and Mucomyst. She is comfortable clinically does not appear to be volume overloaded we will continue close observation. 03/25: Creatinine is fallen now from 2 7-2.4 and we will plan to continue is currently otherwise Current Visit: Yes Cardiology - PN: Subj Interval history: This is a 76-year-old lady who we follow with a history of aortic insufficiency which is 3-4+ and coronary disease for continued medical management. She has had problems with renal failure and her creatinine now is trending downward. She is responded to IV fluids and a little time away from the contrast related to the catheterization. Exam (Progress Note) - Constitutional Vitals: Period Temp Pulse Resp BP Sys/Pina Pulse Ox Last 24 Hr 98 F-100.4 F 18-85 16-20 116-159/55-72 90-100 Exam: General:no acute distress. alert and oriented, mood and affect are normal HEENT: no new lesions, sclerae are clear, mouth and pharynx benign Neck: supple, trachea midline, no JVD noted Lungs: no rales ronchi or wheeze is noted. pt comfortable without accesory muscle use to assist with breathing CV: RRR ai murmur is noted. There is no lift. The PMI is lateral. Abd: soft and nontender, BSNA, no masses. Ext: no cyanosis, clubbing or edema Neuro: grossly intact without focal neurologic deficit. Result/EKG - Labs CBC & BMP: 03/25/17 03:42 03/25/17 03:42 Labs: Laboratory Results - last 24 hr 03/24/17 03/24/17 03/24/17 11:16 16:46 19:47 WBC RBC Hgb Hct MCV MCH MCHC RDW Plt Count MPV Neut % (Auto) Lymph % (Auto) [place] % (Auto) Eos % (Auto) Baso % (Auto) Neut # (Auto) Lymph # (Auto) [place] # (Auto) Eos # (Auto) Baso # (Auto) Immature Gran % Nucleated RBC % Immature Gran # Nucleated RBCs # Sodium Potassium Chloride Carbon Dioxide Anion Gap BUN Creatinine GFR Calculation BUN/Creatinine Ratio Glucose POC Glucose 277 H 177 H 179 H Calculated Osmolality Calcium Magnesium Triglycerides Cholesterol LDL Cholesterol VLDL Cholesterol HDL Cholesterol Heart Disease Risk Ratio 03/25/17 03/25/17 03/25/17 03:42 03:42 03:42 WBC 7.6 RBC 3.55 L Hgb 9.8 L Hct 29.6 L MCV 83.4 L MCH 28 MCHC 33.1 RDW 13.6 Plt Count 294 MPV 10.1 Neut % (Auto) 64.4 Lymph % (Auto) 19.3 L [place] % (Auto) 14.2 H Eos % (Auto) 1.6 Baso % (Auto) 0.1 Neut # (Auto) 4.9 Lymph # (Auto) 1.5 [place] # (Auto) 1.1 H Eos # (Auto) 0.1 Baso # (Auto) 0.0 Immature Gran % 0.4 Nucleated RBC % 0.0 Immature Gran # 0.03 Nucleated RBCs # 0.00 Sodium 135 L Potassium 4.0 Chloride 96 L Carbon Dioxide 25 Anion Gap 18.0 H BUN 50 H Creatinine 2.40 H GFR Calculation 18 BUN/Creatinine Ratio 20.00 Glucose 106 POC Glucose Calculated Osmolality 282.1 Calcium 8.1 L Magnesium 2.6 H Triglycerides 78 Cholesterol 133 LDL Cholesterol 84.0 VLDL Cholesterol 15.6 HDL Cholesterol 45 Heart Disease Risk Ratio 2.96 03/25/17 07:25 WBC RBC Hgb Hct MCV MCH MCHC RDW Plt Count MPV Neut % (Auto) Lymph % (Auto) [place] % (Auto) Eos % (Auto) Baso % (Auto) Neut # (Auto) Lymph # (Auto) [place] # (Auto) Eos # (Auto) Baso # (Auto) Immature Gran % Nucleated RBC % Immature Gran # Nucleated RBCs # Sodium Potassium Chloride Carbon Dioxide Anion Gap BUN Creatinine GFR Calculation BUN/Creatinine Ratio Glucose POC Glucose 116 H Calculated Osmolality Calcium Magnesium Triglycerides Cholesterol LDL Cholesterol VLDL Cholesterol HDL Cholesterol Heart Disease Risk Ratio Quality Measures - VTE Contraindication to Pharmacological VTE Prophylaxis: High Risk of Bleeding Specialty Discharge - Follow Up or Referrals
--- NOTE | 2017-03-25 11:07 | Nephrology Progress Note ---
Nephrology - PN: Subj Interval history: Patient denies shortness of breath. Review of systems GI she denies a Physical exam general the patient is in no acute distress, she has 1-2+ pretibial edema Assessment/plan 1. Acute renal failure-this patient probably has some contrast injury, her creatinine is improved to 2.4 mg/dL from 2.7 mg/dL yesterday, I think the patient is adequately volume repleted at this time. I am going to stop her IV fluids, I will defer to the primary service as to when to DC the Mucomyst. From my standpoint it could be discontinued. 2. Congestive heart failure-patient's seems to be compensated at this point her weight is about where it was when she presented 3. Anemia 4. Diabetes mellitus Exam (PN)-Nephrology - Vital Signs Vital signs: Period Temp Pulse Resp BP Sys/Pina Pulse Ox Last 24 Hr 98 F-100.4 F 18-85 16-20 116-159/55-72 90-100 - Lab 03/25/17 03:42 03/25/17 03:42 Most recent lab results Calcium 8.1 MG/DL (8.5-10.1) L 03/25/17 03:42 Phosphorus 3.7 MG/DL (2.5-4.9) 03/18/17 02:19 Magnesium 2.6 MG/DL (1.8-2.4) H 03/25/17 03:42 Assessment and Plan (1) Acute renal failure superimposed on chronic kidney disease Status: Acute Assessment and plan: I suspect this patient's acute injury is multifactorial in origin, the most prominent role is probably from contrast administration also contributing is the diuresis in the face of this as well as her underlying cardiomyopathy. I agree with holding her diuretics at this time I am also going to hold her hydralazine and allow her blood pressure to drift up a little bit from where it is presently. I do not feel any further workup is indicated at this time. Patient's renal ultrasound was unremarkable for kidney disease. Current Visit: Yes (2) Aortic insufficiency Status: Acute Current Visit: Yes Qualifiers: Cardiac valve disease etiology: nonrheumatic Qualified Code(s): I35.1 - Nonrheumatic aortic (valve) insufficiency (3) Congestive heart failure Status: Acute Current Visit: Yes (4) Anemia Status: Chronic Assessment and plan: Patient's hematocrit is 30% Current Visit: Yes (5) Coronary artery disease Status: Chronic Current Visit: Yes Qualifiers: Coronary Disease-Associated Artery/Lesion type: [place] artery [place] vs. transplanted heart: [place] heart Associated angina: without angina Qualified Code(s): I25.10 - Atherosclerotic heart disease of [place] coronary artery without angina pectoris (6) Diabetes mellitus type 2 in obese Status: Chronic Current Visit: Yes (7) Essential hypertension Status: Chronic Current Visit: Yes (8) Hyperlipidemia Status: Chronic Current Visit: Yes Qualifiers: Hyperlipidemia type: pure hypercholesterolemia Qualified Code(s): E78.00 - Pure hypercholesterolemia, unspecified; E78.0 - Pure hypercholesterolemia (9) Mitral regurgitation Status: Chronic Current Visit: Yes Qualifiers: Cardiac valve disease etiology: nonrheumatic Qualified Code(s): I34.0 - Nonrheumatic mitral (valve) insufficiency Specialty Discharge - Follow Up or Referrals
[2017-03-25] MEDS: [UNRECOGNIZED DRUG - OTHER] IV SCH (11:11)
[2017-03-25] MEDS: SODIUM CHLORIDE IV SCH (11:11)
[2017-03-25] MEDS: SODIUM ACETATE IV SCH (11:11)
[2017-03-25] MEDS: ENOXAPARIN 30 MG/0.3 ML SYRINGE SUBCUT SCH (15:45)
[2017-03-25] MEDS: CYCLOBENZAPRINE 10 MG TABLET PO PRN (20:19)
[2017-03-25] MEDS: sitaGLIPtin 25 MG TABLET PO SCH (20:19)
[2017-03-25] MEDS: ATORVASTATIN 80 MG TABLET PO SCH (20:19)
[2017-03-26] MEDS: ALBUTEROL/IPRATROPIUM 3 ML NEB RESP TX SCH ×5 (02:57→19:55)
[2017-03-26 04:23] LABS: Eosinophils % 0.5 % (0.00-10.9); Hematocrit 28.2 VOL% (35.7-47.0); Hemoglobin 9.5 GM/DL (12.0-16.0); Immature Granulocytes % 0.4 %; Immature Granulocytes Absolute 0.03 #; Lymphocytes # 1.4 10*3/uL (1.4-4.0); Lymphocytes % 16.9 % (21.3-54.2); Mean Corpuscular HGB Conc 33.7 GM/DL (32-36); Mean Corpuscular Hemoglobin 28 PG (27-34); Mean Corpuscular Volume 82.7 FL (87-102); Mean Platelet Volume 9.9 FL (9.6-12.0); Monocytes # 1.1 10*3/uL (0.11-0.8); Monocytes % 12.8 % (1.7-12.7); Neutrophils # 5.8 10*3/uL (1.4-7.4); Neutrophils % 69.4 % (38.7-73.9); Platelet Count 305 T/CUMM (130-400); Red Blood Count 3.41 MC/CUMM (3.8-5.5); Red Cell Distribution Width 13.5 % (9.3-17.3); White Blood Count 8.4 T/CUMM (4-12)
[2017-03-26 04:55] LABS: Calcium 8.2 MG/DL (8.5-10.1); Magnesium 2.5 MG/DL (1.8-2.4); Osmolality,Calculated 284.1 MOS/KG (273-304); Potassium 3.7 MMOL/L (3.5-5.1)
--- NOTE | 2017-03-26 08:08 | Cardiology Progress Note ---
Assessment and Plan (1) Aortic insufficiency Status: Acute Assessment and plan: Continue offloading as tolerated. Continue medical management at this point. 03/25: Patient's AI is well compensated currently. We will continue diuresis once we have her euvolemic. 03/26: She is having symptoms of orthopnea and volume overload. Her renal function is improving and we will see if we can diurese her and maintain renal perfusion Current Visit: Yes Qualifiers: Cardiac valve disease etiology: nonrheumatic Qualified Code(s): I35.1 - Nonrheumatic aortic (valve) insufficiency (2) Congestive heart failure Status: Acute Assessment and plan: Her CHF appears to be improving. I think she is nearing maximal hospital benefit. Current Visit: Yes (3) Diabetes mellitus type 2 in obese Status: Chronic Current Visit: Yes (4) Essential hypertension Status: Chronic Current Visit: Yes (5) Hyperlipidemia Status: Chronic Current Visit: Yes Qualifiers: Hyperlipidemia type: pure hypercholesterolemia Qualified Code(s): E78.00 - Pure hypercholesterolemia, unspecified; E78.0 - Pure hypercholesterolemia (6) Acute renal failure superimposed on chronic kidney disease Status: Acute Assessment and plan: Patient received 100 cc of intravenous contrast for her cardiac catheterization which is resulting in decreased GFR and worsening renal function which is being treated with intravenous fluids and Mucomyst. She is comfortable clinically does not appear to be volume overloaded we will continue close observation. 03/25: Creatinine is fallen now from 2 7-2.4 and we will plan to continue is currently otherwise Current Visit: Yes Cardiology - PN: Subj Interval history: This is a 76-year-old lady has at least moderate aortic insufficiency coronary artery disease who has had recurring congestive heart failure symptoms. She has renal insufficiency and is high risk for surgery. Unfortunately she is continuing to have problems with volume overload and we are planning to proceed with continued attempts at medical management although she may have had some point require surgical evaluation. She feels generally well through the day but has problems with orthopnea at bedtime. Exam (Progress Note) - Constitutional Vitals: Period Temp Pulse Resp BP Sys/Pina Pulse Ox Last 24 Hr 98 F-100.4 F 70-91 15-20 108-175/54-92 93-99 Exam: General:no acute distress. alert and oriented, mood and affect are normal HEENT: no new lesions, sclerae are clear, mouth and pharynx benign Neck: supple, trachea midline, no JVD noted Lungs: no rales ronchi or wheeze is noted. pt comfortable without accesory muscle use to assist with breathing CV: RRR grade 2 murmur noted AI murmur is noted. There is no lift. The PMI is lateral. Abd: soft and nontender, BSNA, no masses. Ext: no cyanosis, clubbing or edema Neuro: grossly intact without focal neurologic deficit. Result/EKG - Labs CBC & BMP: 03/26/17 04:05 03/26/17 04:05 Labs: Laboratory Results - last 24 hr 03/25/17 03/25/17 03/25/17 11:10 15:57 19:50 WBC RBC Hgb Hct MCV MCH MCHC RDW Plt Count MPV Neut % (Auto) Lymph % (Auto) [place] % (Auto) Eos % (Auto) Baso % (Auto) Neut # (Auto) Lymph # (Auto) [place] # (Auto) Eos # (Auto) Baso # (Auto) Immature Gran % Nucleated RBC % Immature Gran # Nucleated RBCs # Sodium Potassium Chloride Carbon Dioxide Anion Gap BUN Creatinine GFR Calculation BUN/Creatinine Ratio Glucose POC Glucose 189 H 260 H 203 H Calculated Osmolality Calcium Magnesium 03/26/17 03/26/17 03/26/17 04:05 04:05 07:06 WBC 8.4 RBC 3.41 L Hgb 9.5 L Hct 28.2 L MCV 82.7 L MCH 28 MCHC 33.7 RDW 13.5 Plt Count 305 MPV 9.9 Neut % (Auto) 69.4 Lymph % (Auto) 16.9 L [place] % (Auto) 12.8 H Eos % (Auto) 0.5 Baso % (Auto) 0.0 Neut # (Auto) 5.8 Lymph # (Auto) 1.4 [place] # (Auto) 1.1 H Eos # (Auto) 0.0 Baso # (Auto) 0.0 Immature Gran % 0.4 Nucleated RBC % 0.0 Immature Gran # 0.03 Nucleated RBCs # 0.00 Sodium 135 L Potassium 3.7 Chloride 97 L Carbon Dioxide 23 Anion Gap 18.7 H BUN 51 H Creatinine 2.10 H GFR Calculation 21 BUN/Creatinine Ratio 24.00 H Glucose 108 H POC Glucose 132 H Calculated Osmolality 284.1 Calcium 8.2 L Magnesium 2.5 H Quality Measures - VTE Contraindication to Pharmacological VTE Prophylaxis: High Risk of Bleeding Specialty Discharge - Follow Up or Referrals
[2017-03-26] MEDS ORDERED: FUROSEMIDE 40 MG/4 ML VIAL IV ONE (08:30)
[2017-03-26] MEDS: ASPIRIN EC 81 MG TABLET PO SCH (08:53)
[2017-03-26] MEDS: CARVEDILOL 12.5 MG TABLET PO SCH ×2 (08:53→20:43)
[2017-03-26] MEDS: ISOSORBIDE MONONITRATE 30 MG TABLET PO SCH (08:53)
[2017-03-26] MEDS: glipiZIDE 5 MG TABLET PO SCH ×2 (08:53→16:39)
[2017-03-26] MEDS: MULTIVITAMIN (CENTRUM) TABLET PO SCH (08:53)
[2017-03-26] MEDS: CLOPIDOGREL 75 MG TABLET PO SCH (08:54)
[2017-03-26] MEDS: POLYVINYL ALCOHOL 1.4% OPH SOLN 15 ML BOTTLE BOTH EYES SCH ×4 (08:55→20:41)
[2017-03-26] MEDS: OFLOXACIN 0.3% OPH SOLN 10 ML BOTTLE LEFT EYE SCH ×4 (08:55→20:41)
[2017-03-26] MEDS: ACETYLCYSTEINE 600 MG CAPSULE PO SCH ×2 (09:00→20:43)
--- NOTE | 2017-03-26 09:37 | Nephrology Progress Note ---
Nephrology - PN: Subj Interval history: Patient complains of some shortness of breath around 7 PM last night. Review of systems GI she denies nausea or vomiting Physical exam general the patient is in no acute distress sitting up and eating presently, she has 2+ pretibial edema worse on the right than the left, her weight is up to KG's from yesterday Assessment/plan 1. Acute renal failure on chronic renal failure-this patient's creatinine is improved to 2.1 mg/dL today 2. Dyspnea-I agree with the resumption of a diuretic as outlined by Dr. Hall today 3. Cardiomyopathy 4. Diabetes mellitus is controlled 5. Anemia I will be happy to see in follow-up for her kidneys. Exam (PN)-Nephrology - Vital Signs Vital signs: Period Temp Pulse Resp BP Sys/Pina Pulse Ox Last 24 Hr 98 F-100.4 F 70-91 15-20 108-175/54-92 93-99 - Lab 03/26/17 04:05 03/26/17 04:05 Most recent lab results Calcium 8.2 MG/DL (8.5-10.1) L 03/26/17 04:05 Phosphorus 3.7 MG/DL (2.5-4.9) 03/18/17 02:19 Magnesium 2.5 MG/DL (1.8-2.4) H 03/26/17 04:05 Assessment and Plan (1) Acute renal failure superimposed on chronic kidney disease Status: Acute Assessment and plan: I suspect this patient's acute injury is multifactorial in origin, the most prominent role is probably from contrast administration also contributing is the diuresis in the face of this as well as her underlying cardiomyopathy. I agree with holding her diuretics at this time I am also going to hold her hydralazine and allow her blood pressure to drift up a little bit from where it is presently. I do not feel any further workup is indicated at this time. Patient's renal ultrasound was unremarkable for kidney disease. Current Visit: Yes (2) Aortic insufficiency Status: Acute Current Visit: Yes Qualifiers: Cardiac valve disease etiology: nonrheumatic Qualified Code(s): I35.1 - Nonrheumatic aortic (valve) insufficiency (3) Congestive heart failure Status: Acute Current Visit: Yes (4) Anemia Status: Chronic Assessment and plan: Patient's hematocrit is 30% Current Visit: Yes (5) Coronary artery disease Status: Chronic Current Visit: Yes Qualifiers: Coronary Disease-Associated Artery/Lesion type: [place] artery [place] vs. transplanted heart: [place] heart Associated angina: without angina Qualified Code(s): I25.10 - Atherosclerotic heart disease of [place] coronary artery without angina pectoris (6) Diabetes mellitus type 2 in obese Status: Chronic Current Visit: Yes (7) Essential hypertension Status: Chronic Current Visit: Yes (8) Hyperlipidemia Status: Chronic Current Visit: Yes Qualifiers: Hyperlipidemia type: pure hypercholesterolemia Qualified Code(s): E78.00 - Pure hypercholesterolemia, unspecified; E78.0 - Pure hypercholesterolemia (9) Mitral regurgitation Status: Chronic Current Visit: Yes Qualifiers: Cardiac valve disease etiology: nonrheumatic Qualified Code(s): I34.0 - Nonrheumatic mitral (valve) insufficiency Specialty Discharge - Follow Up or Referrals
[2017-03-26] MEDS: INSULIN REGULAR 100 UNIT/ML SUBCUT SCH ×4 (10:39→22:34)
[2017-03-26] MEDS: CLOTRIMAZOLE/BETAMETHASONE CREAM 15 GM TUBE TOP SCH ×2 (10:40→20:41)
--- NOTE | 2017-03-26 11:43 | Hospitalist Progress Note ---
Hospitalist: Subjective Interval history: Pt feels SOB is a little worse today. No cp. No fever. Tolerating po. Exam - Constitutional Vitals: Period Temp Pulse Resp BP Sys/Pina Pulse Ox Last 24 Hr 98 F-100.4 F 70-91 15-20 108-175/54-92 86-99 Exam: Awake alert no acute distress Regular rate and rhythm, 3/6 diastolic murmur Clear to auscultation, diminished at the bases with rales mid chest to bases, mild abd retractions Abdomen is soft nontender nondistended hypoactive bowel sounds Extremities are warm and well-perfused. No clubbing cyanosis. SOLOMON hose in place +1 pitting edema on RLE, trace on left Results - Labs CBC & BMP: 03/26/17 04:05 03/26/17 04:05 - Impressions (1) Acute systolic and diastolic congestive heart failure exacerbation EF 35% with Moderate AI and 2V CAD per cath Status: Acute Assessment and plan: - s/p LAD drip. Lasix 40mg IV ordered today. Holding Entresto due to rising creatinine - cardiology following. - Right and left heart cath 03/20 reviewed. troponins katy and peaked at 2.1. - Cath showed 2V disease and she requested medical management - Cont medical management (plavix, lipitor, coreg, hydralazine, imdur- BP under better control with oral hydralazine added). 2) NSTEMI in patient with CAD - medical management 3)Acute hypoxic respiratory failure due to CHF exacerbation- 2L NC as needed - Check CXR. If bilateral pleural effusions are not improved with Lasix, one may consider a thoracentesis but would need to hold Plavix. 4) Essential HTN- controlled. - Cont medical mgt 5)SALUD on CKD3- improving - Creatinine went from 1.2 and peaked at 2.8. Today down to 2.1 - Holding entresto and scheduled Lasix . Will received Lasix 40mg IV x 1 - Off Mucomyst and hold IVF today. Urine studies reviewed and appears pre-renal/ possibly contrast induced. Renal U/S showed bilateral pleural effusions normal kidneys. - Serial labs - Renal following 6) Type 2 DM-blood sugars are better controlled on glipizide and Januvia renally dose. Cont Glipizide 5mg po BID and watch for hypoglycemia. Given she is elderly, can have HgbA1c around 8 as hypoglycemia is worse in the elderly. Holding glimepiride. Cont SSI. 7) Anemia- S[place] 8) Dispo- will return home at discharge. DVTp- SOLOMON [place] D/W pt, sister, and nurse and all questions answered. Cardiology and renal following I will be away several days. One of my associates will follow in my absence. Quality Measures - VTE Contraindication to Pharmacological VTE Prophylaxis: High Risk of Bleeding Specialty Discharge - Follow Up or Referrals
--- NOTE | 2017-03-26 11:59 | XRay Report ---
Portable chest. Indication: Shortness of breath. Comparison: March 24, 2017. The heart is enlarged. There is calcific plaque present within the aortic knob. The lung volumes are small. The pulmonary vasculature is normal. Scattered areas of atelectasis are present in each lung base, with mild interval worsening. There may be a small left pleural effusion. Impression: Worsening atelectasis. Possible small left pleural effusion. PROCEDURE INTERPRETED AT [facility] DEPARTMENT OF RADIOLOGY Final Report Signed by: Dr. Susanna Peterson
[2017-03-26] MEDS: ENOXAPARIN 30 MG/0.3 ML SYRINGE SUBCUT SCH (15:35)
[2017-03-26] MEDS: ATORVASTATIN 80 MG TABLET PO SCH (20:42)
[2017-03-26] MEDS: sitaGLIPtin 25 MG TABLET PO SCH (20:42)
[2017-03-26] MEDS: CYCLOBENZAPRINE 10 MG TABLET PO PRN (20:43)
[2017-03-27] MEDS: ALBUTEROL/IPRATROPIUM 3 ML NEB RESP TX SCH ×6 (00:24→19:42)
[2017-03-27 04:59] LABS: Basophils % 0.1 % (0.0-0.8); Eosinophils # 0.1 10*3/uL (0.0-0.87); Eosinophils % 1.4 % (0.00-10.9); Hematocrit 28.2 VOL% (35.7-47.0); Hemoglobin 9.4 GM/DL (12.0-16.0); Immature Granulocytes % 0.4 %; Immature Granulocytes Absolute 0.03 #; Lymphocytes # 1.6 10*3/uL (1.4-4.0); Lymphocytes % 22.4 % (21.3-54.2); Mean Corpuscular HGB Conc 33.3 GM/DL (32-36); Mean Corpuscular Hemoglobin 28 PG (27-34); Mean Corpuscular Volume 82.9 FL (87-102); Mean Platelet Volume 9.9 FL (9.6-12.0); Monocytes # 0.9 10*3/uL (0.11-0.8); Monocytes % 12.7 % (1.7-12.7); Neutrophils # 4.4 10*3/uL (1.4-7.4); Platelet Count 299 T/CUMM (130-400); Red Cell Distribution Width 13.3 % (9.3-17.3)
[2017-03-27 05:29] LABS: Calcium 8.1 MG/DL (8.5-10.1); Magnesium 2.5 MG/DL (1.8-2.4); Osmolality,Calculated 281.4 MOS/KG (273-304); Potassium 3.6 MMOL/L (3.5-5.1)
[2017-03-27] MEDS: glipiZIDE 5 MG TABLET PO SCH ×2 (09:33→17:36)
[2017-03-27] MEDS: ISOSORBIDE MONONITRATE 30 MG TABLET PO SCH (09:33)
[2017-03-27] MEDS: CARVEDILOL 12.5 MG TABLET PO SCH ×2 (09:33→21:00)
[2017-03-27] MEDS: ASPIRIN EC 81 MG TABLET PO SCH (09:33)
[2017-03-27] MEDS: ACETYLCYSTEINE 600 MG CAPSULE PO SCH (09:33)
[2017-03-27] MEDS: MULTIVITAMIN (CENTRUM) TABLET PO SCH (09:33)
[2017-03-27] MEDS: CLOPIDOGREL 75 MG TABLET PO SCH (09:33)
[2017-03-27] MEDS: INSULIN REGULAR 100 UNIT/ML SUBCUT SCH ×4 (09:33→21:00)
[2017-03-27] MEDS: POLYVINYL ALCOHOL 1.4% OPH SOLN 15 ML BOTTLE BOTH EYES SCH ×4 (09:34→21:01)
[2017-03-27] MEDS: OFLOXACIN 0.3% OPH SOLN 10 ML BOTTLE LEFT EYE SCH ×4 (09:34→21:01)
[2017-03-27] MEDS: CLOTRIMAZOLE/BETAMETHASONE CREAM 15 GM TUBE TOP SCH ×2 (09:34→21:01)
--- NOTE | 2017-03-27 10:41 | Nephrology Progress Note ---
Nephrology - PN: Subj Interval history: Patient reports breathing better. Review of systems GI she denies nausea or vomiting Physical exam general the patient is chronically ill-appearing, she has 2+ pretibial edema Assessment/plan 1. Acute renal failure-patient's creatinine is improved to 1.9 mg/dL from 2.1 mg/dL yesterday 2. Cardiomyopathy 3. Volume overload-patient's weight is down to 61 EKGs from around 65 kg's yesterday, patient's Lasix was restarted yesterday, I do not think these weights are accurate but I do believe she probably is in negative fluid balance for the past 24 hours. I am going to put her on Lasix 40 mg IV daily, I was tempted to make this twice daily 4. Diabetes mellitus Exam (PN)-Nephrology - Vital Signs Vital signs: Period Temp Pulse Resp BP Sys/Pina Pulse Ox Last 24 Hr 97.4 F-99.2 F 70-81 16-22 89-128/46-82 92-99 - Lab 03/27/17 04:44 03/27/17 04:44 Most recent lab results Calcium 8.1 MG/DL (8.5-10.1) L 03/27/17 04:44 Phosphorus 3.7 MG/DL (2.5-4.9) 03/18/17 02:19 Magnesium 2.5 MG/DL (1.8-2.4) H 03/27/17 04:44 Assessment and Plan (1) Acute renal failure superimposed on chronic kidney disease Status: Acute Assessment and plan: I suspect this patient's acute injury is multifactorial in origin, the most prominent role is probably from contrast administration also contributing is the diuresis in the face of this as well as her underlying cardiomyopathy. I agree with holding her diuretics at this time I am also going to hold her hydralazine and allow her blood pressure to drift up a little bit from where it is presently. I do not feel any further workup is indicated at this time. Patient's renal ultrasound was unremarkable for kidney disease. Current Visit: Yes (2) Aortic insufficiency Status: Acute Current Visit: Yes Qualifiers: Cardiac valve disease etiology: nonrheumatic Qualified Code(s): I35.1 - Nonrheumatic aortic (valve) insufficiency (3) Congestive heart failure Status: Acute Current Visit: Yes (4) Anemia Status: Chronic Assessment and plan: Patient's hematocrit is 30% Current Visit: Yes (5) Coronary artery disease Status: Chronic Current Visit: Yes Qualifiers: Coronary Disease-Associated Artery/Lesion type: [place] artery [place] vs. transplanted heart: [place] heart Associated angina: without angina Qualified Code(s): I25.10 - Atherosclerotic heart disease of [place] coronary artery without angina pectoris (6) Diabetes mellitus type 2 in obese Status: Chronic Current Visit: Yes (7) Essential hypertension Status: Chronic Current Visit: Yes (8) Hyperlipidemia Status: Chronic Current Visit: Yes Qualifiers: Hyperlipidemia type: pure hypercholesterolemia Qualified Code(s): E78.00 - Pure hypercholesterolemia, unspecified; E78.0 - Pure hypercholesterolemia (9) Mitral regurgitation Status: Chronic Current Visit: Yes Qualifiers: Cardiac valve disease etiology: nonrheumatic Qualified Code(s): I34.0 - Nonrheumatic mitral (valve) insufficiency Specialty Discharge - Follow Up or Referrals
--- NOTE | 2017-03-27 14:05 | Cardiology Progress Note ---
<Samina Segura - Last Filed: 03/27/17 14:00> Assessment and Plan - Time spent with patient Time spent with patient: Less than 30 minutes (1) Aortic insufficiency Status: Acute Current Visit: Yes Qualifiers: Cardiac valve disease etiology: nonrheumatic Qualified Code(s): I35.1 - Nonrheumatic aortic (valve) insufficiency (2) Congestive heart failure Status: Acute Current Visit: Yes (3) Diabetes mellitus type 2 in obese Status: Chronic Current Visit: Yes (4) Essential hypertension Status: Chronic Current Visit: Yes (5) Hyperlipidemia Status: Chronic Current Visit: Yes Qualifiers: Hyperlipidemia type: pure hypercholesterolemia Qualified Code(s): E78.00 - Pure hypercholesterolemia, unspecified; E78.0 - Pure hypercholesterolemia (6) Acute renal failure superimposed on chronic kidney disease Status: Acute Current Visit: Yes Cardiology - PN: Subj Interval history: FRUIT PICKER: DR. CRUZ Ms. Moscoso is a 76 year old female with a history of coronary artery disease, aortic insufficiency, mitral regurgitation, congestive heart failure, diabetes, hyperlipidemia, and hypertension who presented with progressive shortness of breath and a feeling of "smothering." Echocardiogram on 03/17/17 revealed depressed EF of 30%, mild LVH, grade 3 diastolic dysfunction. She is a Denominational and this will play into any decision for surgery especially given the fact that she is anemic. On 03/20/17 she underwent LHC which revealed: Conclusions: 1: Severe [place] coronary disease involving primarily the proximal circumflex and a totally occluded right which fills via collaterals from the left system. 2: Branch vessel disease involving the LAD 3: Moderate collaterals from the septal perforators and distal LAD to the right coronary artery. 4: At least 3+ aortic insufficiency by this study 5: Moderate pulmonary hypertension without evidence of right heart failure 6: Minx closure right femoral arteriotomy site It was felt she would be best served by medical management. Last week, she had been improving and was anticipated to be discharged; however, her creatinine katy from 1.9 to 2.6. Her Lasix was held and she was started on Mucomyst and IVF. Nephrology was consulted. Over the weekend, her renal function improved. Her Lasix will be resumed tomorrow. Throughout the day, she does well, but she persistently has trouble with orthopnea at night. building services supervisor has been consulted for aid with discharge planning and home health. ASSESSMENT/PLAN: 1. AORTIC INSUFFICIENCY - Will continue offloading as tolerated. Will continue medical management at this point. 2. CONGESTIVE HEART FAILURE - Her CHF had appeared to be improving. She did have some rales posteriorly today, but her Lasix has been held due to worsening renal function. Lasix will be resumed tomorrow. Her lower extremity edema persists. 3. DIABETES MELLITUS - Defer further management to hospital medicine. She is on accuchecks with sliding scale insulin. 4. HYPERTENSION - Currently well controlled. Will continue to monitor and adjust accordingly. 5. HYPERLIPIDEMIA - Continue lipid-lowering agent. 6. ACUTE RENAL FAILURE - She did receive 100cc of IV contrast for LHC which resulted in decreased GFR and worsening renal function. She has been treated with IVF and Mucomyst and this is slowly improving. Nephrology is following. Exam (Progress Note) - Constitutional Vitals: Period Temp Pulse Resp BP Sys/Pina Pulse Ox Last 24 Hr 98.2 F-99.2 F 70-81 16-22 89-132/46-82 92-99 Exam: General: Present: Appears Well, No Apparent Distress. Pleasant and cooperative. Appears comfortable. HEENT: Present: PERRL, Normocephaly, atraumatic. Mucus Membranes Moist. No jaundice noted. Conjunctiva moist and clear, sclerae anicteric Neck: Present: Supple Neck, Midline Trachea, No Masses, No Bruit, No tenderness Cardiac: Present: Regular Rate and Rhythm, aortic insufficiency murmur is noted. Lungs: Present: Bibasilar rales posteriorly, otherwise clear to auscultation. Neuro: Present: Awake, alert, and oriented x3. Moves all extremities well without hemiparesis or paralysis. Grossly Intact. Absent: Resting Tremor, Essential Tremor Abdomen: Present: Soft, Active Bowel Sounds, No Masses, Non-Tender, nondistended. No abdominal bruit or thrill noted. Skin: Present: Clear. Absent: Rash, No skin breakdown. Back: Normal inspection, no vertebral tenderness. Musculoskeletal: Present: No Fluid Collection, No Pain, Normal Range of Motion Extremities: Present: Normal Gait, No Clubbing, No Cyanosis, Upper Extr. Pulses 2+, Lower Extr. Pulses 2+, 2+ RLE edema, 2+ LLE edema. Capillary refill less than 3 seconds. Result/EKG - Labs CBC & BMP: 03/27/17 04:44 03/27/17 04:44 Lab Results: I have reviewed the past 24 hour labs Labs: Laboratory Results - last 24 hr 03/26/17 03/26/17 03/27/17 16:29 22:34 04:44 WBC 7.0 RBC 3.40 L Hgb 9.4 L Hct 28.2 L MCV 82.9 L MCH 28 MCHC 33.3 RDW 13.3 Plt Count 299 MPV 9.9 Neut % (Auto) 63.0 Lymph % (Auto) 22.4 [place] % (Auto) 12.7 Eos % (Auto) 1.4 Baso % (Auto) 0.1 Neut # (Auto) 4.4 Lymph # (Auto) 1.6 [place] # (Auto) 0.9 H Eos # (Auto) 0.1 Baso # (Auto) 0.0 Immature Gran % 0.4 Nucleated RBC % 0.0 Immature Gran # 0.03 Nucleated RBCs # 0.00 Sodium Potassium Chloride Carbon Dioxide Anion Gap BUN Creatinine GFR Calculation BUN/Creatinine Ratio Glucose POC Glucose 181 H 194 H Calculated Osmolality Calcium Magnesium 03/27/17 03/27/17 03/27/17 04:44 07:38 11:40 WBC RBC Hgb Hct MCV MCH MCHC RDW Plt Count MPV Neut % (Auto) Lymph % (Auto) [place] % (Auto) Eos % (Auto) Baso % (Auto) Neut # (Auto) Lymph # (Auto) [place] # (Auto) Eos # (Auto) Baso # (Auto) Immature Gran % Nucleated RBC % Immature Gran # Nucleated RBCs # Sodium 133 L Potassium 3.6 Chloride 95 L Carbon Dioxide 26 Anion Gap 15.6 H BUN 48 H Creatinine 1.90 H GFR Calculation 24 BUN/Creatinine Ratio 25.00 H Glucose 153 H POC Glucose 174 H 213 H Calculated Osmolality 281.4 Calcium 8.1 L Magnesium 2.5 H - EKG EKG results: interpreted by me, sinus rhythm Quality Measures - VTE Contraindication to Pharmacological VTE Prophylaxis: High Risk of Bleeding Specialty Discharge - Follow Up or Referrals <Arsenio Cruz - Last Filed: 03/27/17 16:38> Exam (Progress Note) - Constitutional Vitals: Period Temp Pulse Resp BP Sys/Pina Pulse Ox Last 24 Hr 98.2 F-99.2 F 70-81 16-22 89-132/46-82 92-99 Result/EKG - Labs CBC & BMP: 03/27/17 04:44 03/27/17 04:44 Labs: Laboratory Results - last 24 hr 03/26/17 03/27/17 03/27/17 22:34 04:44 04:44 WBC 7.0 RBC 3.40 L Hgb 9.4 L Hct 28.2 L MCV 82.9 L MCH 28 MCHC 33.3 RDW 13.3 Plt Count 299 MPV 9.9 Neut % (Auto) 63.0 Lymph % (Auto) 22.4 [place] % (Auto) 12.7 Eos % (Auto) 1.4 Baso % (Auto) 0.1 Neut # (Auto) 4.4 Lymph # (Auto) 1.6 [place] # (Auto) 0.9 H Eos # (Auto) 0.1 Baso # (Auto) 0.0 Immature Gran % 0.4 Nucleated RBC % 0.0 Immature Gran # 0.03 Nucleated RBCs # 0.00 Sodium 133 L Potassium 3.6 Chloride 95 L Carbon Dioxide 26 Anion Gap 15.6 H BUN 48 H Creatinine 1.90 H GFR Calculation 24 BUN/Creatinine Ratio 25.00 H Glucose 153 H POC Glucose 194 H Calculated Osmolality 281.4 Calcium 8.1 L Magnesium 2.5 H 03/27/17 03/27/17 07:38 11:40 WBC RBC Hgb Hct MCV MCH MCHC RDW Plt Count MPV Neut % (Auto) Lymph % (Auto) [place] % (Auto) Eos % (Auto) Baso % (Auto) Neut # (Auto) Lymph # (Auto) [place] # (Auto) Eos # (Auto) Baso # (Auto) Immature Gran % Nucleated RBC % Immature Gran # Nucleated RBCs # Sodium Potassium Chloride Carbon Dioxide Anion Gap BUN Creatinine GFR Calculation BUN/Creatinine Ratio Glucose POC Glucose 174 H 213 H Calculated Osmolality Calcium Magnesium
--- NOTE | 2017-03-27 15:22 | Hospitalist Progress Note ---
Assessment and Plan (1) Aortic insufficiency Status: Acute Assessment and plan: The patient has restarted her diuretic medication. We will follow renal function closely and reevaluate total body water tomorrow. I reviewed the plan of care and progress to date with the patient and her at the bedside. I coordinated care with Dr. Shaw. Current Visit: Yes Qualifiers: Cardiac valve disease etiology: nonrheumatic Qualified Code(s): I35.1 - Nonrheumatic aortic (valve) insufficiency (2) Coronary artery disease Status: Chronic Current Visit: Yes Qualifiers: Coronary Disease-Associated Artery/Lesion type: [place] artery [place] vs. transplanted heart: [place] heart Associated angina: without angina Qualified Code(s): I25.10 - Atherosclerotic heart disease of [place] coronary artery without angina pectoris (3) Biatrial enlargement Status: Chronic Current Visit: Yes (4) Acute renal failure superimposed on chronic kidney disease Status: Acute Current Visit: Yes Hospitalist: Subjective Interval history: The patient was admitted to the hospital and required diuresis which caused her to have acute kidney injury. Renal function is not improving and Dr. Pierre has started her diuretic back. The patient states that she has less shortness of breath than she did of admission. Ejection fraction is 35% but with 3+ aortic insufficiency. Exam - Constitutional Vitals: Period Temp Pulse Resp BP Sys/Pina Pulse Ox Last 24 Hr 98.2 F-99.2 F 70-81 16-22 89-132/46-82 92-99 Exam: Constitutional System: Mild distress on account of fatigue and shortness of breath. No tremulousness. Head: Normocephalic, atraumatic. Ears, Nose and Throat System: No evidence of Otitis or Mastoiditis. No epistaxis or discharge Eyes System: Pupils equal, round, and reactive. Extraocular muscles intact. Neck: Supple, without adenopathy, 1+ jugular venous distention. No thyromegaly , neck mass, or prior surgery apparent. Respiratory System: Chest mostly clear with rales in bases to auscultation. Cardiovascular System: Heart with regular rate and rhythm. Moderately audible crescendo decrescendo murmur. GI System: Abdomen soft, nontender. Normo active bowel sounds present. Musculoskeletal System: limbs with 2+ pedal edema. Full distal pulses. Neurological System: No discernable sensory deficit. No aphasia Psychiatric System: Conversation is rational Results - Labs CBC & BMP: 03/27/17 04:44 03/27/17 04:44 Lab Results: I have reviewed the past 24 hour labs Quality Measures - VTE Contraindication to Pharmacological VTE Prophylaxis: High Risk of Bleeding Specialty Discharge - Follow Up or Referrals
[2017-03-27] MEDS: CYCLOBENZAPRINE 10 MG TABLET PO PRN (15:52)
[2017-03-27] MEDS: ENOXAPARIN 30 MG/0.3 ML SYRINGE SUBCUT SCH (17:37)
[2017-03-27] MEDS: hydrALAZINE 25 MG TABLET PO SCH (21:00)
[2017-03-27] MEDS: ISOSORBIDE DINITRATE 20 MG TABLET PO SCH (21:00)
[2017-03-27] MEDS: ATORVASTATIN 80 MG TABLET PO SCH (21:00)
[2017-03-27] MEDS: sitaGLIPtin 25 MG TABLET PO SCH (21:00)
[2017-03-28] MEDS: ALBUTEROL/IPRATROPIUM 3 ML NEB RESP TX SCH ×7 (00:06→23:58)
[2017-03-28] MEDS: BISACODYL 5 MG TABLET PO PRN (00:33)
[2017-03-28 05:30] LABS: Basophils % 0.1 % (0.0-0.8); Eosinophils % 0.3 % (0.00-10.9); Hematocrit 31.9 VOL% (35.7-47.0); Hemoglobin 10.7 GM/DL (12.0-16.0); Immature Granulocytes % 0.5 %; Immature Granulocytes Absolute 0.05 #; Lymphocytes % 10.5 % (21.3-54.2); Mean Corpuscular HGB Conc 33.5 GM/DL (32-36); Mean Corpuscular Hemoglobin 28 PG (27-34); Mean Corpuscular Volume 82.9 FL (87-102); Mean Platelet Volume 10.1 FL (9.6-12.0); Monocytes # 0.4 10*3/uL (0.11-0.8); Neutrophils % 84.6 % (38.7-73.9); Platelet Count 383 T/CUMM (130-400); Red Blood Count 3.85 MC/CUMM (3.8-5.5); Red Cell Distribution Width 13.2 % (9.3-17.3); White Blood Count 9.5 T/CUMM (4-12)
[2017-03-28 05:59] LABS: Calcium 8.4 MG/DL (8.5-10.1); Magnesium 2.7 MG/DL (1.8-2.4); Osmolality,Calculated 275.5 MOS/KG (273-304); Potassium 3.9 MMOL/L (3.5-5.1)
[2017-03-28 06:04] LABS: Burr Cells Slight; Hypochromasia Slight; Lymphocytes 9 % (20-55); Platelet Estimate Adequate; Segmented Neutrophils 87 % (50-85); Total Cells Counted 100
--- NOTE | 2017-03-28 07:40 | Nephrology Progress Note ---
Nephrology - PN: Subj Interval history: Patient states she is breathing better. Review of systems GI she denies nausea or vomiting Physical exam general the patient is in no acute distress Assessment/plan 1. Acute renal failure-this patient's creatinine continues to improve her creatinine is 1.6 mg/dL the day 2. Cardiomyopathy-patient has a history of coronary artery disease, coronary angiogram is being contemplated agree with waiting for her kidneys to recover further prior to another contrast challenge 3. Diabetes mellitus is controlled 4. Anemia-patient's hematocrit is 32% 5. Congestive heart failure-this is improved we will continue diuretics Exam (PN)-Nephrology - Vital Signs Vital signs: Period Temp Pulse Resp BP Sys/Pina Pulse Ox Last 24 Hr 97.9 F-98.8 F 71-86 18-20 102-156/52-75 91-100 - Lab 03/28/17 05:00 03/28/17 05:00 Most recent lab results Calcium 8.4 MG/DL (8.5-10.1) L 03/28/17 05:00 Phosphorus 3.7 MG/DL (2.5-4.9) 03/18/17 02:19 Magnesium 2.7 MG/DL (1.8-2.4) H 03/28/17 05:00 Assessment and Plan (1) Acute renal failure superimposed on chronic kidney disease Status: Acute Assessment and plan: I suspect this patient's acute injury is multifactorial in origin, the most prominent role is probably from contrast administration also contributing is the diuresis in the face of this as well as her underlying cardiomyopathy. I agree with holding her diuretics at this time I am also going to hold her hydralazine and allow her blood pressure to drift up a little bit from where it is presently. I do not feel any further workup is indicated at this time. Patient's renal ultrasound was unremarkable for kidney disease. Current Visit: Yes (2) Aortic insufficiency Status: Acute Current Visit: Yes Qualifiers: Cardiac valve disease etiology: nonrheumatic Qualified Code(s): I35.1 - Nonrheumatic aortic (valve) insufficiency (3) Congestive heart failure Status: Acute Current Visit: Yes (4) Anemia Status: Chronic Assessment and plan: Patient's hematocrit is 30% Current Visit: Yes (5) Coronary artery disease Status: Chronic Current Visit: Yes Qualifiers: Coronary Disease-Associated Artery/Lesion type: [place] artery [place] vs. transplanted heart: [place] heart Associated angina: without angina Qualified Code(s): I25.10 - Atherosclerotic heart disease of [place] coronary artery without angina pectoris (6) Diabetes mellitus type 2 in obese Status: Chronic Current Visit: Yes (7) Essential hypertension Status: Chronic Current Visit: Yes (8) Hyperlipidemia Status: Chronic Current Visit: Yes Qualifiers: Hyperlipidemia type: pure hypercholesterolemia Qualified Code(s): E78.00 - Pure hypercholesterolemia, unspecified; E78.0 - Pure hypercholesterolemia (9) Mitral regurgitation Status: Chronic Current Visit: Yes Qualifiers: Cardiac valve disease etiology: nonrheumatic Qualified Code(s): I34.0 - Nonrheumatic mitral (valve) insufficiency Specialty Discharge - Follow Up or Referrals
[2017-03-28] MEDS: INSULIN REGULAR 100 UNIT/ML SUBCUT SCH ×4 (09:13→21:54)
[2017-03-28] MEDS: MULTIVITAMIN (CENTRUM) TABLET PO SCH (09:31)
[2017-03-28] MEDS: FUROSEMIDE 40 MG/4 ML VIAL IV SCH ×2 (09:31→17:03)
[2017-03-28] MEDS: hydrALAZINE 25 MG TABLET PO SCH ×3 (09:31→21:53)
[2017-03-28] MEDS: CARVEDILOL 12.5 MG TABLET PO SCH ×2 (09:31→21:54)
[2017-03-28] MEDS: ASPIRIN EC 81 MG TABLET PO SCH (09:31)
[2017-03-28] MEDS: ISOSORBIDE DINITRATE 20 MG TABLET PO SCH ×3 (09:31→21:54)
[2017-03-28] MEDS: CLOPIDOGREL 75 MG TABLET PO SCH (09:31)
[2017-03-28] MEDS: glipiZIDE 5 MG TABLET PO SCH ×2 (09:31→17:02)
[2017-03-28] MEDS: POLYVINYL ALCOHOL 1.4% OPH SOLN 15 ML BOTTLE BOTH EYES SCH ×4 (09:32→21:54)
[2017-03-28] MEDS: CLOTRIMAZOLE/BETAMETHASONE CREAM 15 GM TUBE TOP SCH ×2 (09:32→21:54)
[2017-03-28] MEDS: OFLOXACIN 0.3% OPH SOLN 10 ML BOTTLE LEFT EYE SCH ×4 (09:32→21:55)
--- NOTE | 2017-03-28 15:48 | Cardiology Progress Note ---
<ColtonSamina E - Last Filed: 03/28/17 16:26> Assessment and Plan - Time spent with patient Time spent with patient: Less than 30 minutes (1) Aortic insufficiency Status: Acute Current Visit: Yes Qualifiers: Cardiac valve disease etiology: nonrheumatic Qualified Code(s): I35.1 - Nonrheumatic aortic (valve) insufficiency (2) Congestive heart failure Status: Acute Current Visit: Yes Qualifiers: Congestive heart failure type: combined (3) Diabetes mellitus type 2 in obese Status: Chronic Current Visit: Yes (4) Essential hypertension Status: Chronic Current Visit: Yes (5) Hyperlipidemia Status: Chronic Current Visit: Yes Qualifiers: Hyperlipidemia type: pure hypercholesterolemia Qualified Code(s): E78.00 - Pure hypercholesterolemia, unspecified; E78.0 - Pure hypercholesterolemia (6) Acute renal failure superimposed on chronic kidney disease Status: Acute Current Visit: Yes Cardiology - PN: Subj Interval history: 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 CRUZ Ms. Moscoso is a 76 year old female with a history of coronary artery disease, aortic insufficiency, mitral regurgitation, congestive heart failure, diabetes, hyperlipidemia, and hypertension who presented with progressive shortness of breath and a feeling of "smothering." Echocardiogram on 03/17/17 revealed depressed EF of 30%, mild LVH, grade 3 diastolic dysfunction. She is a [place] and this will play into any decision for surgery especially given the fact that she is anemic. On 03/20/17 she underwent LHC which revealed: Conclusions: 1: Severe [place] coronary disease involving primarily the proximal circumflex and a totally occluded right which fills via collaterals from the left system. 2: Branch vessel disease involving the LAD 3: Moderate collaterals from the septal perforators and distal LAD to the right coronary artery. 4: At least 3+ aortic insufficiency by this study 5: Moderate pulmonary hypertension without evidence of right heart failure 6: Minx closure right femoral arteriotomy site It was felt she would be best served by medical management. Last week, she had been improving and was anticipated to be discharged; however, her creatinine katy from 1.9 to 2.6. Her Lasix was held and she was started on Mucomyst and IVF. Nephrology was consulted. Over the weekend, her renal function improved. Her Lasix will be resumed tomorrow. Throughout the day, she does well, but she persistently has trouble with orthopnea at night. patient services coordinator has been consulted for aid with discharge planning and home health. ASSESSMENT/PLAN: 1. AORTIC INSUFFICIENCY - Will continue offloading as tolerated. Will continue medical management at this point. 2. CONGESTIVE HEART FAILURE - Her CHF is slowly improving. Her diuretics were on hold due to impaired renal function but her Lasix was resumed today. 3. DIABETES MELLITUS - Defer further management to hospital medicine. She is on accuchecks with sliding scale insulin. 4. HYPERTENSION - Currently well controlled. Will continue to monitor and adjust accordingly. Her Imdur was changed to 20mg PO TID and she was also started on hydralazine TID to help treat her heart failure. 5. HYPERLIPIDEMIA - Continue lipid-lowering agent. 6. ACUTE RENAL FAILURE - She did receive 100cc of IV contrast for LHC which resulted in decreased GFR and worsening renal function. She has been treated with IVF and Mucomyst and this is slowly improving. Nephrology is following. Creatinine is down to 1.6. Exam (Progress Note) - Constitutional Vitals: Period Temp Pulse Resp BP Sys/Pina Pulse Ox Last 24 Hr 97.9 F-99.0 F 74-86 18-20 93-156/52-75 92-100 Exam: General: Present: Appears Well, No Apparent Distress. Pleasant and cooperative. Appears comfortable. HEENT: Present: PERRL, Normocephaly, atraumatic. Mucus Membranes Moist. No jaundice noted. Conjunctiva moist and clear, sclerae anicteric Neck: Present: Supple Neck, Midline Trachea, No Masses, No Bruit, No tenderness Cardiac: Present: Regular Rate and Rhythm, aortic insufficiency murmur is noted. Lungs: Present: Few Bibasilar rales posteriorly, otherwise clear to auscultation. Neuro: Present: Awake, alert, and oriented x3. Moves all extremities well without hemiparesis or paralysis. Grossly Intact. Absent: Resting Tremor, Essential Tremor Abdomen: Present: Soft, Active Bowel Sounds, No Masses, Non-Tender, nondistended. No abdominal bruit or thrill noted. Skin: Present: Clear. Absent: Rash, No skin breakdown. Back: Normal inspection, no vertebral tenderness. Musculoskeletal: Present: No Fluid Collection, No Pain, Normal Range of Motion Extremities: Present: Normal Gait, No Clubbing, No Cyanosis, Upper Extr. Pulses 2+, Lower Extr. Pulses 2+, 2+ RLE edema, 2+ LLE edema. Capillary refill less than 3 seconds. Result/EKG - Labs CBC & BMP: 03/28/17 05:00 03/28/17 05:00 Lab Results: I have reviewed the past 24 hour labs Labs: Laboratory Results - last 24 hr 03/27/17 03/27/17 03/28/17 16:47 20:34 05:00 WBC 9.5 D RBC 3.85 Hgb 10.7 L Hct 31.9 L MCV 82.9 L MCH 28 MCHC 33.5 RDW 13.2 Plt Count 383 D MPV 10.1 Neut % (Auto) 84.6 H Lymph % (Auto) 10.5 L [place] % (Auto) 4.0 Eos % (Auto) 0.3 Baso % (Auto) 0.1 Neut # (Auto) 8.0 H Lymph # (Auto) 1.0 L [place] # (Auto) 0.4 Eos # (Auto) 0.0 Baso # (Auto) 0.0 Total Counted 100 Immature Gran % 0.5 Nucleated RBC % 0.0 Immature Gran # 0.05 Segmented Neutrophils 87 H Lymphocytes 9 L Monocytes 4 Nucleated RBCs # 0.00 Platelet Estimate Adequate Hypochromasia Slight [place] Cells Slight Morphology Comment Sodium Potassium Chloride Carbon Dioxide Anion Gap BUN Creatinine GFR Calculation BUN/Creatinine Ratio Glucose POC Glucose 256 H 204 H Calculated Osmolality Calcium Magnesium 03/28/17 03/28/17 03/28/17 05:00 07:17 11:57 WBC RBC Hgb Hct MCV MCH MCHC RDW Plt Count MPV Neut % (Auto) Lymph % (Auto) [place] % (Auto) Eos % (Auto) Baso % (Auto) Neut # (Auto) Lymph # (Auto) [place] # (Auto) Eos # (Auto) Baso # (Auto) Total Counted Immature Gran % Nucleated RBC % Immature Gran # Segmented Neutrophils Lymphocytes Monocytes Nucleated RBCs # Platelet Estimate Hypochromasia [place] Cells Morphology Comment Sodium 132 L Potassium 3.9 Chloride 95 L Carbon Dioxide 23 Anion Gap 17.9 H BUN 50 H Creatinine 1.60 H GFR Calculation 29 BUN/Creatinine Ratio 31.00 H Glucose 83 POC Glucose 113 H 236 H Calculated Osmolality 275.5 Calcium 8.4 L Magnesium 2.7 H 03/28/17 15:28 WBC RBC Hgb Hct MCV MCH MCHC RDW Plt Count MPV Neut % (Auto) Lymph % (Auto) [place] % (Auto) Eos % (Auto) Baso % (Auto) Neut # (Auto) Lymph # (Auto) [place] # (Auto) Eos # (Auto) Baso # (Auto) Total Counted Immature Gran % Nucleated RBC % Immature Gran # Segmented Neutrophils Lymphocytes Monocytes Nucleated RBCs # Platelet Estimate Hypochromasia [place] Cells Morphology Comment Sodium Potassium Chloride Carbon Dioxide Anion Gap BUN Creatinine GFR Calculation BUN/Creatinine Ratio Glucose POC Glucose 223 H Calculated Osmolality Calcium Magnesium - EKG EKG results: interpreted by me, sinus rhythm Quality Measures - VTE Contraindication to Pharmacological VTE Prophylaxis: High Risk of Bleeding Specialty Discharge - Follow Up or Referrals <Arsenio Cruz - Last Filed: 03/28/17 17:45> Exam (Progress Note) - Constitutional Vitals: Period Temp Pulse Resp BP Sys/Pina Pulse Ox Last 24 Hr 97.9 F-99.0 F 74-86 18-20 93-156/52-75 92-100 Result/EKG - Labs CBC & BMP: 03/28/17 05:00 03/28/17 05:00 Labs: Laboratory Results - last 24 hr 03/27/17 03/28/17 03/28/17 20:34 05:00 05:00 WBC 9.5 D RBC 3.85 Hgb 10.7 L Hct 31.9 L MCV 82.9 L MCH 28 MCHC 33.5 RDW 13.2 Plt Count 383 D MPV 10.1 Neut % (Auto) 84.6 H Lymph % (Auto) 10.5 L [place] % (Auto) 4.0 Eos % (Auto) 0.3 Baso % (Auto) 0.1 Neut # (Auto) 8.0 H Lymph # (Auto) 1.0 L [place] # (Auto) 0.4 Eos # (Auto) 0.0 Baso # (Auto) 0.0 Total Counted 100 Immature Gran % 0.5 Nucleated RBC % 0.0 Immature Gran # 0.05 Segmented Neutrophils 87 H Lymphocytes 9 L Monocytes 4 Nucleated RBCs # 0.00 Platelet Estimate Adequate Hypochromasia Slight [place] Cells Slight Morphology Comment Sodium 132 L Potassium 3.9 Chloride 95 L Carbon Dioxide 23 Anion Gap 17.9 H BUN 50 H Creatinine 1.60 H GFR Calculation 29 BUN/Creatinine Ratio 31.00 H Glucose 83 POC Glucose 204 H Calculated Osmolality 275.5 Calcium 8.4 L Magnesium 2.7 H 03/28/17 03/28/17 03/28/17 07:17 11:57 15:28 WBC RBC Hgb Hct MCV MCH MCHC RDW Plt Count MPV Neut % (Auto) Lymph % (Auto) [place] % (Auto) Eos % (Auto) Baso % (Auto) Neut # (Auto) Lymph # (Auto) [place] # (Auto) Eos # (Auto) Baso # (Auto) Total Counted Immature Gran % Nucleated RBC % Immature Gran # Segmented Neutrophils Lymphocytes Monocytes Nucleated RBCs # Platelet Estimate Hypochromasia [place] Cells Morphology Comment Sodium Potassium Chloride Carbon Dioxide Anion Gap BUN Creatinine GFR Calculation BUN/Creatinine Ratio Glucose POC Glucose 113 H 236 H 223 H Calculated Osmolality Calcium Magnesium
--- NOTE | 2017-03-28 16:40 | Hospitalist Progress Note ---
Assessment and Plan (1) Aortic insufficiency Status: Acute Assessment and plan: The patient has restarted her diuretic medication. We will follow renal function closely and reevaluate total body water tomorrow. I reviewed the plan of care and progress to date with the patient and her at the bedside. I coordinated care with Dr. Medley. Current Visit: Yes Qualifiers: Qualified Code(s): I35.1 - Nonrheumatic aortic (valve) insufficiency (2) Coronary artery disease Status: Chronic Current Visit: Yes Qualifiers: Qualified Code(s): I25.10 - Atherosclerotic heart disease of [place] coronary artery without angina pectoris (3) Biatrial enlargement Status: Chronic Current Visit: Yes (4) Acute renal failure superimposed on chronic kidney disease Status: Acute Current Visit: Yes Hospitalist: Subjective Interval history: This is a 76-year-old Judaism with two-vessel coronary artery disease and moderate to severe aortic insufficiency. The patient arrived to the hospital with shortness of breath and lower extremity edema. Her pulmonary edema has improved with diuresis and Dr. Medley is adjusting her heart failure regimen with good effect. She should be ready for discharge home soon. The patient wishes to avoid cardiac surgery if possible. Exam - Constitutional Vitals: Period Temp Pulse Resp BP Sys/Pina Pulse Ox Last 24 Hr 97.9 F-99.0 F 74-86 18-20 93-156/52-75 92-100 Exam: Constitutional System: Mild distress on account of fatigue and shortness of breath. No tremulousness. Head: Normocephalic, atraumatic. Ears, Nose and Throat System: No evidence of Otitis or Mastoiditis. No epistaxis or discharge Eyes System: Pupils equal, round, and reactive. Extraocular muscles intact. Neck: Supple, without adenopathy, 1+ jugular venous distention. No thyromegaly , neck mass, or prior surgery apparent. Respiratory System: Chest mostly clear with rales in bases to auscultation. Cardiovascular System: Heart with regular rate and rhythm. Moderately audible crescendo decrescendo murmur. GI System: Abdomen soft, nontender. Normo active bowel sounds present. Musculoskeletal System: limbs with 2+ pedal edema. Full distal pulses. Neurological System: No discernable sensory deficit. No aphasia Psychiatric System: Conversation is rational Results - Labs CBC & BMP: 03/28/17 05:00 03/28/17 05:00 Lab Results: I have reviewed the past 24 hour labs Quality Measures - VTE Contraindication to Pharmacological VTE Prophylaxis: High Risk of Bleeding Specialty Discharge - Follow Up or Referrals
[2017-03-28] MEDS: ENOXAPARIN 30 MG/0.3 ML SYRINGE SUBCUT SCH (17:04)
[2017-03-28] MEDS: ATORVASTATIN 80 MG TABLET PO SCH (21:53)
[2017-03-28] MEDS: sitaGLIPtin 25 MG TABLET PO SCH (21:54)
[2017-03-28] MEDS: CYCLOBENZAPRINE 10 MG TABLET PO PRN (21:54)
[2017-03-29] MEDS: ALBUTEROL/IPRATROPIUM 3 ML NEB RESP TX SCH ×6 (03:45→23:40)
[2017-03-29 04:59] LABS: Basophils % 0.1 % (0.0-0.8); Eosinophils # 0.1 10*3/uL (0.0-0.87); Hematocrit 25.7 VOL% (35.7-47.0); Hemoglobin 8.7 GM/DL (12.0-16.0); Immature Granulocytes % 0.6 %; Immature Granulocytes Absolute 0.04 #; Lymphocytes # 1.8 10*3/uL (1.4-4.0); Lymphocytes % 26.2 % (21.3-54.2); Mean Corpuscular HGB Conc 33.9 GM/DL (32-36); Mean Corpuscular Hemoglobin 28 PG (27-34); Mean Corpuscular Volume 82.9 FL (87-102); Monocytes # 0.8 10*3/uL (0.11-0.8); Monocytes % 10.8 % (1.7-12.7); Neutrophils # 4.3 10*3/uL (1.4-7.4); Neutrophils % 61.3 % (38.7-73.9); Platelet Count 329 T/CUMM (130-400); Red Cell Distribution Width 13.2 % (9.3-17.3)
[2017-03-29 05:32] LABS: Calcium 7.9 MG/DL (8.5-10.1); Magnesium 2.4 MG/DL (1.8-2.4); Osmolality,Calculated 277.5 MOS/KG (273-304); Potassium 3.6 MMOL/L (3.5-5.1)
[2017-03-29 05:45] LABS: Troponin I Only 0.176 NG/ML (0.00-0.045)
--- NOTE | 2017-03-29 07:18 | EKG Report ---
Stationary ECG Study [facility] Test Date: 03/29/2017 7:19:22 AM Pat Name: THADDEUS AN Department: Room: 277 Gender: F Bell Cleaner: : 1940 Requested by: Arsneio Colon Order Number: [id number] Reading MD: YUDY LIMA Intervals [place] Rate: 75 P: 33 [place]: 258 QRS: 109 QRSD: 120 T: 224 QT: 538 QTc: 567 Interpretive Statements SINUS RHYTHM WITH PROLONGED IN INTERVAL POSSIBLE RIGHT VENTRICULAR HYPERTROPHY ANTERIOR MYOCARDIAL INFARCTION Electronically Signed On 03-29-17 08:15:30 CDT by YUDY LIMA [id number]
[2017-03-29] MEDS: INSULIN REGULAR 100 UNIT/ML SUBCUT SCH ×4 (08:22→21:17)
--- NOTE | 2017-03-29 08:50 | Nephrology Progress Note ---
Nephrology - PN: Subj Interval history: Patient denies shortness of breath. Review of systems GI she denies nausea or vomiting Physical exam general the patient is in no acute distress, she has 2+ pretibial edema Assessment/plan 1. Acute renal failure-patient's creatinine is 1.7 mg/dL this is about stable from yesterday when it was 1.6 mg/dL 2. Volume overload-patient's weight is coming down I would continue the diuretics as is 3. Coronary artery disease management per cardiology 4. Diabetes mellitus this is controlled Exam (PN)-Nephrology - Vital Signs Vital signs: Period Temp Pulse Resp BP Sys/Pina Pulse Ox Last 24 Hr 97.6 F-99.8 F 67-86 16-20 93-135/53-58 93-100 - Lab 03/29/17 04:12 03/29/17 04:12 Most recent lab results Calcium 7.9 MG/DL (8.5-10.1) L 03/29/17 04:12 Phosphorus 3.7 MG/DL (2.5-4.9) 03/18/17 02:19 Magnesium 2.4 MG/DL (1.8-2.4) 03/29/17 04:12 Assessment and Plan (1) Acute renal failure superimposed on chronic kidney disease Status: Acute Assessment and plan: I suspect this patient's acute injury is multifactorial in origin, the most prominent role is probably from contrast administration also contributing is the diuresis in the face of this as well as her underlying cardiomyopathy. I agree with holding her diuretics at this time I am also going to hold her hydralazine and allow her blood pressure to drift up a little bit from where it is presently. I do not feel any further workup is indicated at this time. Patient's renal ultrasound was unremarkable for kidney disease. Current Visit: Yes (2) Aortic insufficiency Status: Acute Current Visit: Yes Qualifiers: Cardiac valve disease etiology: nonrheumatic Qualified Code(s): I35.1 - Nonrheumatic aortic (valve) insufficiency (3) Congestive heart failure Status: Acute Current Visit: Yes Qualifiers: Congestive heart failure type: combined (4) Anemia Status: Chronic Assessment and plan: Patient's hematocrit is 30% Current Visit: Yes (5) Coronary artery disease Status: Chronic Current Visit: Yes Qualifiers: Coronary Disease-Associated Artery/Lesion type: [place] artery [place] vs. transplanted heart: [place] heart Associated angina: without angina Qualified Code(s): I25.10 - Atherosclerotic heart disease of [place] coronary artery without angina pectoris (6) Diabetes mellitus type 2 in obese Status: Chronic Current Visit: Yes (7) Essential hypertension Status: Chronic Current Visit: Yes (8) Hyperlipidemia Status: Chronic Current Visit: Yes Qualifiers: Hyperlipidemia type: pure hypercholesterolemia Qualified Code(s): E78.00 - Pure hypercholesterolemia, unspecified; E78.0 - Pure hypercholesterolemia (9) Mitral regurgitation Status: Chronic Current Visit: Yes Qualifiers: Cardiac valve disease etiology: nonrheumatic Qualified Code(s): I34.0 - Nonrheumatic mitral (valve) insufficiency Specialty Discharge - Follow Up or Referrals
[2017-03-29] MEDS: POLYVINYL ALCOHOL 1.4% OPH SOLN 15 ML BOTTLE BOTH EYES SCH ×4 (09:43→21:15)
[2017-03-29] MEDS: FUROSEMIDE 40 MG/4 ML VIAL IV SCH (09:43)
[2017-03-29] MEDS: OFLOXACIN 0.3% OPH SOLN 10 ML BOTTLE LEFT EYE SCH ×4 (09:43→21:14)
[2017-03-29] MEDS: glipiZIDE 5 MG TABLET PO SCH ×2 (09:44→16:45)
[2017-03-29] MEDS: hydrALAZINE 25 MG TABLET PO SCH ×3 (09:44→21:18)
[2017-03-29] MEDS: CLOPIDOGREL 75 MG TABLET PO SCH (09:44)
[2017-03-29] MEDS: MULTIVITAMIN (CENTRUM) TABLET PO SCH (09:44)
[2017-03-29] MEDS: ISOSORBIDE DINITRATE 20 MG TABLET PO SCH ×3 (09:44→21:18)
[2017-03-29] MEDS: ASPIRIN EC 81 MG TABLET PO SCH (09:44)
[2017-03-29] MEDS: CARVEDILOL 12.5 MG TABLET PO SCH ×2 (09:44→21:17)
[2017-03-29] MEDS: CLOTRIMAZOLE/BETAMETHASONE CREAM 15 GM TUBE TOP SCH ×2 (09:50→21:16)
--- NOTE | 2017-03-29 09:55 | EKG Report ---
Stationary ECG Study [facility] Test Date: 03/29/2017 9:57:31 AM Pat Name: THADDEUS AN Department: Room: 277 Gender: F Watershed Manager: : 1940 Requested by: Samina Segura Order Number: [id number] Reading MD: BRADY DIAZ Intervals [place] Rate: 78 P: 39 [place]: 272 QRS: 85 QRSD: 118 T: 197 QT: 514 QTc: 548 Interpretive Statements SINUS RHYTHM WITH SINUS ARRHYTHMIA WITH PROLONGED [place] INTERVAL POSSIBLE ANTERIOR MYOCARDIAL INFARCTIONBASED ON DELAYED ANTERIOR R WAVE PROGRESSION, OF INDETERMINATE AGE IF PRESENT MODERATE T-WAVE ABNORMALITY, CONSIDER LATERAL ISCHEMIA MODERATE T-WAVE ABNORMALITY, CONSIDER INFERIOR ISCHEMIA Electronically Signed On 03-30-17 07:41:06 CDT by BRADY DIAZ [id number]
--- NOTE | 2017-03-29 12:38 | Cardiology Progress Note ---
<SeguraJayceSamina E - Last Filed: 03/29/17 12:32> Assessment and Plan - Time spent with patient Time spent with patient: Less than 30 minutes (1) Aortic insufficiency Status: Acute Current Visit: Yes Qualifiers: Cardiac valve disease etiology: nonrheumatic Qualified Code(s): I35.1 - Nonrheumatic aortic (valve) insufficiency (2) Congestive heart failure Status: Acute Current Visit: Yes Qualifiers: Congestive heart failure type: combined (3) Diabetes mellitus type 2 in obese Status: Chronic Current Visit: Yes (4) Essential hypertension Status: Chronic Current Visit: Yes (5) Hyperlipidemia Status: Chronic Current Visit: Yes Qualifiers: Hyperlipidemia type: pure hypercholesterolemia Qualified Code(s): E78.00 - Pure hypercholesterolemia, unspecified; E78.0 - Pure hypercholesterolemia (6) Acute renal failure superimposed on chronic kidney disease Status: Acute Current Visit: Yes Cardiology - PN: Subj Interval history: HIM ANALYST: DR. CRUZ Ms. Moscoso is a 76 year old female with a history of coronary artery disease, aortic insufficiency, mitral regurgitation, congestive heart failure, diabetes, hyperlipidemia, and hypertension who presented with progressive shortness of breath and a feeling of "smothering." Echocardiogram on 03/17/17 revealed depressed EF of 30%, mild LVH, grade 3 diastolic dysfunction. She is a Druze and this will play into any decision for surgery especially given the fact that she is anemic. On 03/20/17 she underwent LHC which revealed: Conclusions: 1: Severe ruby coronary disease involving primarily the proximal circumflex and a totally occluded right which fills via collaterals from the left system. 2: Branch vessel disease involving the LAD 3: Moderate collaterals from the septal perforators and distal LAD to the right coronary artery. 4: At least 3+ aortic insufficiency by this study 5: Moderate pulmonary hypertension without evidence of right heart failure 6: Minx closure right femoral arteriotomy site It was felt she would be a less than optimal surgical candidate for CABG/AVR. Last week, she had been improving clinically and was anticipated to be discharged; however, her creatinine katy from 1.9 to 2.6. Her Lasix was held and she was started on Mucomyst and IVF. Nephrology was consulted. Over the weekend, her renal function improved. Her Lasix will be resumed tomorrow. Throughout the day, she does well, but she persistently had trouble with orthopnea at night. youth services librarian has been consulted for aid with discharge planning and home health. This morning, she was noted to have changes on her EKG consistent with ischemia. She has diffuse T-wave inversions. She denies chest pain or shortness of breath and tells me she had a restful night. Her orthopnea seemed to be better last night. ASSESSMENT/PLAN: 1. AORTIC INSUFFICIENCY - Will continue offloading as tolerated. Will continue medical management at this point. 2. CONGESTIVE HEART FAILURE - Her CHF is slowly improving. Her diuretics were on hold due to impaired renal function but her Lasix was resumed today. 3. DIABETES MELLITUS - Defer further management to hospital medicine. She is on accuchecks with sliding scale insulin. 4. HYPERTENSION - Currently well controlled. Will continue to monitor and adjust accordingly. Her Imdur was changed to 20mg PO TID and she was also started on hydralazine TID to help treat her heart failure. Her blood pressure was borderline hypotensive with these additions and her morning dose of hydralazine was held today. We will adjust her medications accordingly. 5. HYPERLIPIDEMIA - Continue lipid-lowering agent. 6. ACUTE RENAL FAILURE - She did receive 100cc of IV contrast for LHC which resulted in decreased GFR and worsening renal function. She has been treated with IVF and Mucomyst and this is slowly improving. Nephrology is following. Creatinine 1.7 today. 7. CORONARY ARTERY DISEASE - Proximal RCA occlusion (fills by left right collaterals), and severe proximal circumflex disease with intermediate proximal LAD disease noted per left heart catheterization on 03/20/17. Given her comorbidities and status as a Druze, she would be a less than optimal surgical candidate, but this may still be the best option. Dr. Cruz will follow with further plan and addendum. Exam (Progress Note) - Constitutional Vitals: Period Temp Pulse Resp BP Sys/Pina Pulse Ox Last 24 Hr 97.6 F-99.8 F 67-86 16-20 99-135/52-58 93-100 Exam: General: Present: Appears Well, No Apparent Distress. Pleasant and cooperative. Appears comfortable. HEENT: Present: PERRL, Normocephaly, atraumatic. Mucus Membranes Moist. No jaundice noted. Conjunctiva moist and clear, sclerae anicteric Neck: Present: Supple Neck, Midline Trachea, No Masses, No Bruit, No tenderness Cardiac: Present: Regular Rate and Rhythm, aortic insufficiency murmur is noted. Lungs: Present: Few Bibasilar rales posteriorly, otherwise clear to auscultation. Neuro: Present: Awake, alert, and oriented x3. Moves all extremities well without hemiparesis or paralysis. Grossly Intact. Absent: Resting Tremor, Essential Tremor Abdomen: Present: Soft, Active Bowel Sounds, No Masses, Non-Tender, nondistended. No abdominal bruit or thrill noted. Skin: Present: Clear. Absent: Rash, No skin breakdown. Back: Normal inspection, no vertebral tenderness. Musculoskeletal: Present: No Fluid Collection, No Pain, Normal Range of Motion Extremities: Present: Normal Gait, No Clubbing, No Cyanosis, Upper Extr. Pulses 2+, Lower Extr. Pulses 2+, 2+ RLE edema, 2+ LLE edema. Capillary refill less than 3 seconds. Result/EKG - Labs CBC & BMP: 03/29/17 04:12 03/29/17 04:12 Lab Results: I have reviewed the past 24 hour labs Labs: Laboratory Results - last 24 hr 03/28/17 03/28/17 03/29/17 15:28 20:31 04:12 WBC 7.0 RBC 3.10 L Hgb 8.7 L D Hct 25.7 L MCV 82.9 L MCH 28 MCHC 33.9 RDW 13.2 Plt Count 329 MPV 10.0 Neut % (Auto) 61.3 Lymph % (Auto) 26.2 [place] % (Auto) 10.8 Eos % (Auto) 1.0 Baso % (Auto) 0.1 Neut # (Auto) 4.3 Lymph # (Auto) 1.8 [place] # (Auto) 0.8 Eos # (Auto) 0.1 Baso # (Auto) 0.0 Immature Gran % 0.6 Nucleated RBC % 0.0 Immature Gran # 0.04 Nucleated RBCs # 0.00 Sodium Potassium Chloride Carbon Dioxide Anion Gap BUN Creatinine GFR Calculation BUN/Creatinine Ratio Glucose POC Glucose 223 H 260 H Calculated Osmolality Calcium Magnesium Total Creatine Kinase CK-MB (CK-2) Troponin I 03/29/17 03/29/17 03/29/17 04:12 04:12 07:38 WBC RBC Hgb Hct MCV MCH MCHC RDW Plt Count MPV Neut % (Auto) Lymph % (Auto) [place] % (Auto) Eos % (Auto) Baso % (Auto) Neut # (Auto) Lymph # (Auto) [place] # (Auto) Eos # (Auto) Baso # (Auto) Immature Gran % Nucleated RBC % Immature Gran # Nucleated RBCs # Sodium 132 L Potassium 3.6 Chloride 95 L Carbon Dioxide 26 Anion Gap 14.6 BUN 49 H Creatinine 1.70 H GFR Calculation 27 BUN/Creatinine Ratio 28.00 H Glucose 117 H POC Glucose 102 Calculated Osmolality 277.5 Calcium 7.9 L Magnesium 2.4 Total Creatine Kinase 78 CK-MB (CK-2) 2.1 Troponin I 0.176 H 03/29/17 11:13 WBC RBC Hgb Hct MCV MCH MCHC RDW Plt Count MPV Neut % (Auto) Lymph % (Auto) [place] % (Auto) Eos % (Auto) Baso % (Auto) Neut # (Auto) Lymph # (Auto) [place] # (Auto) Eos # (Auto) Baso # (Auto) Immature Gran % Nucleated RBC % Immature Gran # Nucleated RBCs # Sodium Potassium Chloride Carbon Dioxide Anion Gap BUN Creatinine GFR Calculation BUN/Creatinine Ratio Glucose POC Glucose 190 H Calculated Osmolality Calcium Magnesium Total Creatine Kinase CK-MB (CK-2) Troponin I - EKG EKG results: interpreted by me, sinus rhythm (with ST-T abnormality) Quality Measures - VTE Contraindication to Pharmacological VTE Prophylaxis: High Risk of Bleeding Specialty Discharge - Follow Up or Referrals <Arsenio Cruz - Last Filed: 03/29/17 13:22> Exam (Progress Note) - Constitutional Vitals: Period Temp Pulse Resp BP Sys/Pina Pulse Ox Last 24 Hr 97.6 F-99.8 F 67-86 16-20 99-135/52-58 93-100 Result/EKG - Labs CBC & BMP: 03/29/17 04:12 03/29/17 04:12 Labs: Laboratory Results - last 24 hr 03/28/17 03/28/17 03/29/17 15:28 20:31 04:12 WBC 7.0 RBC 3.10 L Hgb 8.7 L D Hct 25.7 L MCV 82.9 L MCH 28 MCHC 33.9 RDW 13.2 Plt Count 329 MPV 10.0 Neut % (Auto) 61.3 Lymph % (Auto) 26.2 [place] % (Auto) 10.8 Eos % (Auto) 1.0 Baso % (Auto) 0.1 Neut # (Auto) 4.3 Lymph # (Auto) 1.8 [place] # (Auto) 0.8 Eos # (Auto) 0.1 Baso # (Auto) 0.0 Immature Gran % 0.6 Nucleated RBC % 0.0 Immature Gran # 0.04 Nucleated RBCs # 0.00 Sodium Potassium Chloride Carbon Dioxide Anion Gap BUN Creatinine GFR Calculation BUN/Creatinine Ratio Glucose POC Glucose 223 H 260 H Calculated Osmolality Calcium Magnesium Total Creatine Kinase CK-MB (CK-2) Troponin I 03/29/17 03/29/17 03/29/17 04:12 04:12 07:38 WBC RBC Hgb Hct MCV MCH MCHC RDW Plt Count MPV Neut % (Auto) Lymph % (Auto) [place] % (Auto) Eos % (Auto) Baso % (Auto) Neut # (Auto) Lymph # (Auto) [place] # (Auto) Eos # (Auto) Baso # (Auto) Immature Gran % Nucleated RBC % Immature Gran # Nucleated RBCs # Sodium 132 L Potassium 3.6 Chloride 95 L Carbon Dioxide 26 Anion Gap 14.6 BUN 49 H Creatinine 1.70 H GFR Calculation 27 BUN/Creatinine Ratio 28.00 H Glucose 117 H POC Glucose 102 Calculated Osmolality 277.5 Calcium 7.9 L Magnesium 2.4 Total Creatine Kinase 78 CK-MB (CK-2) 2.1 Troponin I 0.176 H 03/29/17 11:13 WBC RBC Hgb Hct MCV MCH MCHC RDW Plt Count MPV Neut % (Auto) Lymph % (Auto) [place] % (Auto) Eos % (Auto) Baso % (Auto) Neut # (Auto) Lymph # (Auto) [place] # (Auto) Eos # (Auto) Baso # (Auto) Immature Gran % Nucleated RBC % Immature Gran # Nucleated RBCs # Sodium Potassium Chloride Carbon Dioxide Anion Gap BUN Creatinine GFR Calculation BUN/Creatinine Ratio Glucose POC Glucose 190 H Calculated Osmolality Calcium Magnesium Total Creatine Kinase CK-MB (CK-2) Troponin I
--- NOTE | 2017-03-29 14:29 | Hospitalist Progress Note ---
Assessment and Plan (1) Coronary artery disease Status: Chronic Current Visit: Yes Qualifiers: Coronary Disease-Associated Artery/Lesion type: [place] artery [place] vs. transplanted heart: [place] heart Associated angina: without angina Qualified Code(s): I25.10 - Atherosclerotic heart disease of [place] coronary artery without angina pectoris (2) Aortic insufficiency Status: Acute Current Visit: Yes Qualifiers: Cardiac valve disease etiology: nonrheumatic Qualified Code(s): I35.1 - Nonrheumatic aortic (valve) insufficiency (3) Biatrial enlargement Status: Chronic Current Visit: Yes (4) Anemia Status: Chronic Current Visit: Yes (5) Acute renal failure superimposed on chronic kidney disease Status: Acute Assessment and plan: Patient diuretic medication was restarted. Discussed the case with Dr. Pardo today. Asked Dr. Pavon evaluate the patient for surgery. Her H&H has dropped and he Plavix was going to be held. Dr. Pardo was going to get [place] involved for possible IV iron infusion. Patient is [employer] and adamantly refuses transfusion. Overall currently her symptoms have improved. She is having a repeat echo done this morning to evaluate her heart function. Continue to monitor her H&H Current Visit: Yes Hospitalist: Subjective Interval history: Patient reports feeling a little bit better today Exam - Constitutional Vitals: Period Temp Pulse Resp BP Sys/Pina Pulse Ox Last 24 Hr 97.6 F-99.8 F 67-86 16-20 99-135/52-58 93-100 General appearance: normal weight - Head Head exam: Present: normal inspection - ENT ENT exam: Present: normal exam - Neck Neck exam: Present: normal inspection - Respiratory Respiratory exam: Present: clear to auscultation bilaterally - Cardiovascular Cardiovascular exam: Present: systolic murmur - GI/Abdominal GI/Abdominal exam: Present: normal bowel sounds - Extremities Exam Extremities exam: Present: normal inspection Results - Labs CBC & BMP: 03/29/17 04:12 03/29/17 04:12 Quality Measures - VTE Contraindication to Pharmacological VTE Prophylaxis: High Risk of Bleeding Specialty Discharge - Follow Up or Referrals
[2017-03-29 14:48] LABS: Hematocrit 29.4 VOL% (35.7-47.0); Hemoglobin 9.8 GM/DL (12.0-16.0)
[2017-03-29 15:32] LABS: Troponin I Only 0.188 NG/ML (0.00-0.045)
[2017-03-29] MEDS: FERROUS SULFATE ER 140 MG TABLET PO SCH ×2 (16:45→22:03)
[2017-03-29] MEDS: ENOXAPARIN 30 MG/0.3 ML SYRINGE SUBCUT SCH (16:45)
[2017-03-29 19:46] LABS: Troponin I Only 0.156 NG/ML (0.00-0.045)
[2017-03-29] MEDS: NITROGLYCERIN SL 0.4 MG TABLET SL PRN ×2 (20:01→21:14)
[2017-03-29] MEDS: ATORVASTATIN 80 MG TABLET PO SCH (21:17)
[2017-03-29] MEDS: sitaGLIPtin 25 MG TABLET PO SCH (21:17)
[2017-03-29] MEDS ORDERED: NITROGLYCERIN DRIP 50 MG/250 ML BOTTLE IV ONE (21:50)
[2017-03-29] MEDS: NITROGLYCERIN DRIP 50 MG/250 ML BOTTLE IV SCH (22:00)
[2017-03-30] MEDS: FERROUS SULFATE ER 140 MG TABLET PO SCH ×4 (02:45→21:32)
[2017-03-30] MEDS: ALBUTEROL/IPRATROPIUM 3 ML NEB RESP TX SCH ×5 (03:25→20:33)
[2017-03-30 04:44] LABS: Hematocrit 30.2 VOL% (35.7-47.0); Hemoglobin 9.9 GM/DL (12.0-16.0)
[2017-03-30] MEDS: NITROGLYCERIN DRIP 50 MG/250 ML BOTTLE IV SCH (05:16)
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
--- NOTE | 2017-03-30 07:49 | EKG Report ---
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
--- NOTE | 2017-03-30 07:58 | Cardiology Progress Note ---
<Samina Segura - Last Filed: 03/30/17 08:40> Assessment and Plan - Time spent with patient Time spent with patient: Less than 30 minutes (1) Aortic insufficiency Status: Acute Current Visit: Yes Qualifiers: Cardiac valve disease etiology: nonrheumatic Qualified Code(s): I35.1 - Nonrheumatic aortic (valve) insufficiency (2) Congestive heart failure Status: Acute Current Visit: Yes Qualifiers: Congestive heart failure type: combined (3) Diabetes mellitus type 2 in obese Status: Chronic Current Visit: Yes (4) Essential hypertension Status: Chronic Current Visit: Yes (5) Hyperlipidemia Status: Chronic Current Visit: Yes Qualifiers: Hyperlipidemia type: pure hypercholesterolemia Qualified Code(s): E78.00 - Pure hypercholesterolemia, unspecified; E78.0 - Pure hypercholesterolemia (6) Acute renal failure superimposed on chronic kidney disease Status: Acute Current Visit: Yes Cardiology - PN: Subj Interval 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 CRUZ Ms. Moscoso is a 76 year old female with a history of coronary artery disease, aortic insufficiency, mitral regurgitation, congestive heart failure, diabetes, hyperlipidemia, and hypertension who presented with progressive shortness of breath and a feeling of "smothering." Echocardiogram on 03/17/17 revealed depressed EF of 30%, mild LVH, grade 3 diastolic dysfunction. She is a [employer] and this will play into any decision for surgery especially given the fact that she is anemic. On 03/20/17 she underwent LHC which revealed: Conclusions: 1: Severe [place] coronary disease involving primarily the proximal circumflex and a totally occluded right which fills via collaterals from the left system. 2: Branch vessel disease involving the LAD 3: Moderate collaterals from the septal perforators and distal LAD to the right coronary artery. 4: At least 3+ aortic insufficiency by this study 5: Moderate pulmonary hypertension without evidence of right heart failure 6: Minx closure right femoral arteriotomy site It was felt she would be a less than optimal surgical candidate for CABG/AVR. Last week, she had been improving clinically and was anticipated to be discharged; however, her creatinine katy from 1.9 to 2.6. Her Lasix was held and she was started on Mucomyst and IVF. Nephrology was consulted. Over the weekend, her renal function improved and her Lasix was able to be resumed. She does well during the day but tends to have trouble with orthopnea at night. technical services consultant has been consulted for aid with discharge planning and home health. On 03/30/17, she was noted to have changes on her EKG consistent with ischemia. She has diffuse T-wave inversions. She denied chest pain or shortness of breath and tells me she had a restful night; however, later in the evening she developed chest pain and was transferred to CCU and started on a Nitroglycerin infusion. Additional cardiac biomarkers were checked and she has had a normal CPK and CK-MB with flat troponins. ASSESSMENT/PLAN: 1. AORTIC INSUFFICIENCY - Will continue offloading as tolerated. Will continue medical management at this point. 2. CONGESTIVE HEART FAILURE - Her CHF is slowly improving with diuretics. 3. DIABETES MELLITUS - Defer further management to hospital medicine. She is on accuchecks with sliding scale insulin. 4. HYPERTENSION - Currently well controlled. Will continue to monitor and adjust accordingly. Her Imdur was changed to 20mg PO TID and she was also started on hydralazine TID to help treat her heart failure. 5. HYPERLIPIDEMIA - Continue lipid-lowering agent. 6. ACUTE RENAL FAILURE - She did receive 100cc of IV contrast for LHC which resulted in decreased GFR and worsening renal function. She has been treated with IVF and Mucomyst and this is slowly improving. Nephrology is following. 7. CORONARY ARTERY DISEASE - Proximal RCA occlusion (fills by left right collaterals), and severe proximal circumflex disease with intermediate proximal LAD disease noted per left heart catheterization on 03/20/17. Given her comorbidities and status as a [employer], she would be a less than optimal surgical candidate, but this may still be the best option. Dr. Cruz will follow with further plan and addendum. 8. ANEMIA -H&H was 8.7 & 25.7 yesterday but has now improved to 9.9 and 30.2. Her Plavix was discontinued and hematology has been consulted to see if she may need IV iron may be helpful in case she needs cardiac surgery. She was started on p.o. iron. Labs were checked and revealed iron of 16, TIBC 237, ferritin 59.8. Exam (Progress Note) - Constitutional Vitals: Period Temp Pulse Resp BP Sys/Pina Pulse Ox Last 24 Hr 97.7 F-99.9 F 73-112 10-24 113-154/52-82 92-100 Exam: General: Present: Appears Well, No Apparent Distress. Pleasant and cooperative. Appears comfortable. HEENT: Present: PERRL, Normocephaly, atraumatic. Mucus Membranes Moist. No jaundice noted. Conjunctiva moist and clear, sclerae anicteric Neck: Present: Supple Neck, Midline Trachea, No Masses, No Bruit, No tenderness Cardiac: Present: Regular Rate and Rhythm, aortic insufficiency murmur is noted. Lungs: Present: Few Bibasilar rales posteriorly, otherwise clear to auscultation. Neuro: Present: Awake, alert, and oriented x3. Moves all extremities well without hemiparesis or paralysis. Grossly Intact. Absent: Resting Tremor, Essential Tremor Abdomen: Present: Soft, Active Bowel Sounds, No Masses, Non-Tender, nondistended. No abdominal bruit or thrill noted. Skin: Present: Clear. Absent: Rash, No skin breakdown. Back: Normal inspection, no vertebral tenderness. Musculoskeletal: Present: No Fluid Collection, No Pain, Normal Range of Motion Extremities: Present: Normal Gait, No Clubbing, No Cyanosis, Upper Extr. Pulses 2+, Lower Extr. Pulses 2+, 2+ RLE edema, 2+ LLE edema. Capillary refill less than 3 seconds. Result/EKG - Labs CBC & BMP: 03/30/17 04:21 03/29/17 04:12 Lab Results: I have reviewed the past 24 hour labs Labs: Laboratory Results - last 24 hr 03/29/17 03/29/17 03/29/17 11:13 14:03 14:03 Hgb 9.8 L Hct 29.4 L POC Glucose 190 H Total Creatine Kinase 83 CK-MB (CK-2) 2.7 Troponin I 0.188 H 03/29/17 03/29/17 03/29/17 15:46 18:56 19:43 Hgb Hct POC Glucose 252 H 157 H Total Creatine Kinase 97 CK-MB (CK-2) 2.5 Troponin I 0.156 H 03/30/17 03/30/17 04:21 07:38 Hgb 9.9 L Hct 30.2 L POC Glucose 215 H Total Creatine Kinase CK-MB (CK-2) Troponin I - EKG EKG results: interpreted by me, sinus rhythm (ST-T wave abnormality) Quality Measures - VTE Contraindication to Pharmacological VTE Prophylaxis: High Risk of Bleeding Specialty Discharge - Follow Up or Referrals <Arsenio Cruz - Last Filed: 03/30/17 09:16> Exam (Progress Note) - Constitutional Vitals: Period Temp Pulse Resp BP Sys/Pina Pulse Ox Last 24 Hr 97.7 F-99.9 F 73-112 10-24 113-154/52-82 92-100 Result/EKG - Labs CBC & BMP: 03/30/17 04:21 03/29/17 04:12 Labs: Laboratory Results - last 24 hr 03/29/17 03/29/17 03/29/17 11:13 14:03 14:03 Hgb 9.8 L Hct 29.4 L POC Glucose 190 H Iron TIBC % Saturation Ferritin Total Creatine Kinase 83 CK-MB (CK-2) 2.7 Troponin I 0.188 H 03/29/17 03/29/17 03/29/17 15:46 18:56 19:43 Hgb Hct POC Glucose 252 H 157 H Iron TIBC % Saturation Ferritin Total Creatine Kinase 97 CK-MB (CK-2) 2.5 Troponin I 0.156 H 03/30/17 03/30/17 03/30/17 04:21 07:38 07:48 Hgb 9.9 L Hct 30.2 L POC Glucose 215 H Iron 16 L TIBC 237 L % Saturation 6.8 L Ferritin 59.8 Total Creatine Kinase CK-MB (CK-2) Troponin I
[2017-03-30 08:27] LABS: % Iron Saturation 6.8 % (18-50); Ferritin 59.8 ng/ml (8-252)
[2017-03-30] MEDS: CARVEDILOL 12.5 MG TABLET PO SCH ×2 (09:00→21:32)
[2017-03-30] MEDS: hydrALAZINE 25 MG TABLET PO SCH ×3 (09:00→21:31)
[2017-03-30] MEDS: INSULIN REGULAR 100 UNIT/ML SUBCUT SCH ×4 (09:00→21:30)
[2017-03-30] MEDS: ISOSORBIDE DINITRATE 20 MG TABLET PO SCH ×3 (09:00→21:32)
[2017-03-30] MEDS: CYCLOBENZAPRINE 10 MG TABLET PO PRN ×2 (11:44→21:37)
--- NOTE | 2017-03-30 11:51 | Hospitalist Progress Note ---
Assessment and Plan (1) Congestive heart failure Status: Acute Assessment and plan: 1)Ao insufficiency- diuresed. BISHNU to assess valve. Dr Pavon consulted re:valve replacement. sats good, BP controlled. 2)CAD- recent NSTEMI on admission 3)SALUD on CKD- stable creatinine at 1.7 most recently- this is her baseline. 4)DM 5)anemia- Hindu. Dr Chaney evaluating for IV iron infusion. H&H stable. 6)CP last night- appears non cardiac. [facility] Current Visit: Yes Qualifiers: Congestive heart failure type: combined (2) Diabetes mellitus type 2 in obese Status: Chronic Current Visit: Yes (3) Essential hypertension Status: Chronic Current Visit: Yes (4) Anemia Status: Chronic Current Visit: Yes Hospitalist: Subjective Interval history: Mrs Moscoso is feeling good this morning. Dr Medley plans a BISHNU today. No chest pain at this time. No shortness of breath. It was hurting in left chest but she thinks it was GERD. Exam - Constitutional Vitals: Period Temp Pulse Resp BP Sys/Pina Pulse Ox Last 24 Hr 98.1 F-99.9 F 73-112 10-24 113-154/54-82 92-100 General appearance: normal weight, no acute distress - Head Head exam: Present: normocephalic, atraumatic - Eye Eye exam: Present: EOMI. Absent: scleral icterus Pupils: Present: WESLY - Respiratory Respiratory exam: Present: clear to auscultation bilaterally - Cardiovascular Cardiovascular exam: Present: regular rate and rhythm, systolic murmur - GI/Abdominal GI/Abdominal exam: Present: normal bowel sounds, soft - Extremities Exam Extremities exam: Absent: edema - Back Exam Back exam: Present: other (kyphosis) - Skin Skin exam: Present: warm, dry Results - Labs CBC & BMP: 03/30/17 04:21 03/29/17 04:12 Lab Results: I have reviewed the past 24 hour labs Quality Measures - VTE Contraindication to Pharmacological VTE Prophylaxis: High Risk of Bleeding Specialty Discharge - Follow Up or Referrals
[2017-03-30] MEDS: OFLOXACIN 0.3% OPH SOLN 10 ML BOTTLE LEFT EYE SCH ×4 (12:20→21:32)
[2017-03-30] MEDS: FUROSEMIDE 40 MG/4 ML VIAL IV SCH (12:20)
--- NOTE | 2017-03-30 14:10 | Nephrology Progress Note ---
Nephrology - PN: Subj Interval history: Patient denies shortness of breath. Review of systems GI she denies nausea or vomiting, CV-the patient had some chest pain last night and was moved to the ICU she is presently on a nitroglycerin infusion she is chest pain-free presently Physical exam general the patient in no acute distress, she has 2+ pretibial edema Assessment/plan 1. Acute renal failure secondary to contrast 2. Diabetes mellitus 3. Cardiomyopathy 4. Anemia-patient's hematocrits around 30%. Exam (PN)-Nephrology - Vital Signs Vital signs: Period Temp Pulse Resp BP Sys/Pina Pulse Ox Last 24 Hr 98 F-99.9 F 73-112 10-24 93-154/53-82 92-100 - Lab 03/30/17 04:21 03/29/17 04:12 Most recent lab results Calcium 7.9 MG/DL (8.5-10.1) L 03/29/17 04:12 Phosphorus 3.7 MG/DL (2.5-4.9) 03/18/17 02:19 Magnesium 2.4 MG/DL (1.8-2.4) 03/29/17 04:12 Assessment and Plan (1) Acute renal failure superimposed on chronic kidney disease Status: Acute Assessment and plan: I suspect this patient's acute injury is multifactorial in origin, the most prominent role is probably from contrast administration also contributing is the diuresis in the face of this as well as her underlying cardiomyopathy. I agree with holding her diuretics at this time I am also going to hold her hydralazine and allow her blood pressure to drift up a little bit from where it is presently. I do not feel any further workup is indicated at this time. Patient's renal ultrasound was unremarkable for kidney disease. Current Visit: Yes (2) Aortic insufficiency Status: Acute Current Visit: Yes Qualifiers: Cardiac valve disease etiology: nonrheumatic Qualified Code(s): I35.1 - Nonrheumatic aortic (valve) insufficiency (3) Congestive heart failure Status: Acute Current Visit: Yes Qualifiers: Congestive heart failure type: combined (4) Anemia Status: Chronic Assessment and plan: Patient's hematocrit is 30% Current Visit: Yes (5) Coronary artery disease Status: Chronic Current Visit: Yes Qualifiers: Coronary Disease-Associated Artery/Lesion type: platinum artery [place] vs. transplanted heart: platinum heart Associated angina: without angina Qualified Code(s): I25.10 - Atherosclerotic heart disease of [place] coronary artery without angina pectoris (6) Diabetes mellitus type 2 in obese Status: Chronic Current Visit: Yes (7) Essential hypertension Status: Chronic Current Visit: Yes (8) Hyperlipidemia Status: Chronic Current Visit: Yes Qualifiers: Hyperlipidemia type: pure hypercholesterolemia Qualified Code(s): E78.00 - Pure hypercholesterolemia, unspecified; E78.0 - Pure hypercholesterolemia (9) Mitral regurgitation Status: Chronic Current Visit: Yes Qualifiers: Cardiac valve disease etiology: nonrheumatic Qualified Code(s): I34.0 - Nonrheumatic mitral (valve) insufficiency Specialty Discharge - Follow Up or Referrals
[2017-03-30] MEDS: ASPIRIN EC 81 MG TABLET PO SCH (14:26)
[2017-03-30] MEDS: MULTIVITAMIN (CENTRUM) TABLET PO SCH (14:26)
[2017-03-30] MEDS: glipiZIDE 5 MG TABLET PO SCH ×2 (14:26→17:25)
[2017-03-30] MEDS: POLYVINYL ALCOHOL 1.4% OPH SOLN 15 ML BOTTLE BOTH EYES SCH ×4 (14:26→21:32)
[2017-03-30] MEDS: CLOTRIMAZOLE/BETAMETHASONE CREAM 15 GM TUBE TOP SCH ×2 (14:28→21:42)
[2017-03-30] MEDS: ENOXAPARIN 30 MG/0.3 ML SYRINGE SUBCUT SCH (15:15)
[2017-03-30] MEDS ORDERED: IRON DEXTRAN 25 MG in SYRINGE 1 EACH IV ONE (15:55)
[2017-03-30] MEDS ORDERED: IRON DEXTRAN 1,000 MG in SODIUM CHLORIDE 0.9% 500 ML IV ONE (15:55)
--- NOTE | 2017-03-30 15:55 | Event Note ---
Asked to see the patient by Dr. Medley for evaluation of possible transesophageal echocardiogram. She she has coronary disease and probably needs bypass surgery as well as has a question of aortic and mitral valve disease that is significant enough knee replacement. I discussed transesophageal echocardiogram with the patient and her . I reviewed with him the indication procedure as well as how the procedure would be carried out. Also reviewed with them the risk procedure which include but not necessarily limited to aspiration pneumonia are as well as esophageal tear with bleeding or esophageal rupture that may require thoracic surgery. She is Synagogue and course will not take blood. They understand the issues that if we do get into, bleeding complications this could be detrimental and even lead to . They were agreeable to proceed with the procedure especially with the possibility that she will consent to have open heart surgery. We will plan on doing this tomorrow.
[2017-03-30] MEDS ORDERED: diphenhydrAMINE 50 MG/1 ML VIAL IV ONE (15:56)
[2017-03-30] MEDS ORDERED: DEXAMETHASONE INJ 10 MG in SODIUM CHLORIDE 0.9% 50 ML IV ONE (15:56)
[2017-03-30] MEDS ORDERED: SODIUM CHLORIDE 0.9% 1,000 ML IV SCH ×2 (16:00)
--- NOTE | 2017-03-30 16:33 | ECHO Report ---
Brianna Moscoso Exam Date: 03/29/2017 08:48 Referring Physician: Technologist: Yamileth Funes RDCS Age: 76 Ht (in): 62 Wt (lb): 146 Gender: F Exam Location: [facility] Echo Indications: Aortic insufficiency, Chronic kidney disease, unspecified, Essential (primary) hypertension, CHF, Diabetes, Hyperlipidemia BP: 112 / 62 HR: Rhythm: Sinus Technical Quality: IMPRESSIONS 2-3+ left atrial enlargement 23+ concentric LVH Normal LV systolic function with ejection fraction estimated 55% without segmental wall motion abnormality Severe mitral aortic calcification with thickened mitral valve, and reduced leaflet motion; estimated approximately 3+ mitral stenosis with mean/peak gradients of 10/25 mmHg plus RAP 1+ mitral regurgitation 3+ aortic stenosis and regurgitation (pressure half-time 223 ms, but appears to be less than severe by color flow Doppler) with mean and peak gradients of 29/50 mmHg (aortic valve area just under 0.8 cm by planimetry) 2-3+ tricuspid regurgitation with RVSP 65 mmHg plus RAP suggesting moderate to severe pulmonary hypertension Consider BISHNU to better define complex valvular heart disease per MEASUREMENTS (Male / Female) Normal Values 2D ECHO LV Diastolic Diameter PLAX 4.1 cm 4.2 - 5.9 / 3.9 - 5.3 cm LV Systolic Diameter PLAX 3.8 cm LV Fractional Shortening PLAX 8.9 % IVS Diastolic Thickness 1.5 cm 0.6 - 1.0 / 0.6 - 0.9 cm LVPW Diastolic Thickness 1.6 cm 0.6 - 1.0 / 0.6 - 0.9 cm RV Internal Dim ED PLAX 3.1 cm Aortic Root Diameter 3.1 cm LA Systolic Diameter LX 4.6 cm 3.0 - 4.0 / 2.7 - 3.8 cm DOPPLER TR Peak Velocity 402.0 cm/s TR Peak Gradient 64.6 mmHg FINDINGS Left Ventricle Right Ventricle Right Atrium Left Atrium Mitral Valve Aortic Valve Tricuspid Valve Pulmonic Valve Pericardium Aorta Arsenio Medley (Electronically Signed) Final Date: 30 March 2017 16:32
[2017-03-30] MEDS: ATORVASTATIN 80 MG TABLET PO SCH (21:32)
[2017-03-30] MEDS: sitaGLIPtin 25 MG TABLET PO SCH (21:32)
[2017-03-31] MEDS: ALBUTEROL/IPRATROPIUM 3 ML NEB RESP TX SCH ×6 (00:57→21:09)
[2017-03-31 04:04] LABS: Basophils % 0.1 % (0.0-0.8); Hematocrit 27.8 VOL% (35.7-47.0); Hemoglobin 9.4 GM/DL (12.0-16.0); Immature Granulocytes % 0.5 %; Immature Granulocytes Absolute 0.04 #; Lymphocytes # 0.7 10*3/uL (1.4-4.0); Lymphocytes % 8.8 % (21.3-54.2); Mean Corpuscular HGB Conc 33.8 GM/DL (32-36); Mean Corpuscular Hemoglobin 28 PG (27-34); Mean Corpuscular Volume 83.7 FL (87-102); Mean Platelet Volume 9.7 FL (9.6-12.0); Monocytes # 0.2 10*3/uL (0.11-0.8); Monocytes % 2.9 % (1.7-12.7); Neutrophils # 7.4 10*3/uL (1.4-7.4); Neutrophils % 87.7 % (38.7-73.9); Platelet Count 338 T/CUMM (130-400); Red Blood Count 3.32 MC/CUMM (3.8-5.5); Red Cell Distribution Width 13.2 % (9.3-17.3); White Blood Count 8.4 T/CUMM (4-12)
[2017-03-31 04:23] LABS: Magnesium 2.3 MG/DL (1.8-2.4); Osmolality,Calculated 280.2 MOS/KG (273-304); Potassium 4.1 MMOL/L (3.5-5.1)
--- NOTE | 2017-03-31 06:47 | Event Note ---
The patient's morning is stable. She is for transesophageal echocardiogram by me today. I discussed this in with a family member who is present again. I reviewed indications have procedure be carried out the risk which include but not necessarily limited to aspiration pneumonia, esophageal injury with tear or rupture requiring surgery. She is Buddhist and will not take blood. They do understand these risk. Given her indications are the same as yesterday when we discussed this. We will proceed this morning.
--- NOTE | 2017-03-31 06:48 | History and Physical Update ---
History and Physical Update - History and Physical H&P was reviewed, the patient examined and there: are no changes in the patients condition since last H&P was completed. - Dictation Physical: refer to H&P completed by admitting physician - Physical Exam Mental Status: alert and oriented Heart: regular rate and rhythm Lung: clear to auscultation Abdomen: within normal limits Vitals: within normal limits History and Physical Changes: None
[2017-03-31] MEDS ORDERED: ETOMIDATE 20 MG/10 ML VIAL IV ONE (08:03)
[2017-03-31] MEDS ORDERED: LIDOCAINE 2% 5 ML VIAL ONE (08:03)
--- NOTE | 2017-03-31 08:26 | Operative Note ---
Date of procedure: 03/31/17 Procedure Preformed: Transesophageal echocardiogram Surgeon / Physician: German Nunn Post-op diagnosis: same Findings: Preliminary findings: Left ventricular ejection fraction appears to be 35% with some mild concentric left ventricular hypertrophy. Aortic valve is sclerotic and probably tricuspid. There is moderate to severe aortic stenosis and at least mild insufficiency. The aortic valve and mitral annular structure is sclerotic and calcified. There is moderate to severe mitral stenosis and at least moderate regurgitation. There is moderate tricuspid regurgitation. Left atrium is probably dilated as is the right atrium. There is bilateral "smoke" in both atria. There is no thrombus seen. There is a minimal PFO present with trivial the left to right shunting. There is no shunt present especially right to left. Please see full report for details. Specimens: none sent Estimated blood loss: none Condition: stable Anesthesia: MAC Disposition: floor
--- NOTE | 2017-03-31 08:41 | Anesthesia Post-Op ---
Anesthesia Post OP - Post Ansesthetic Evaluation Patient seen in post op: Yes Resp: within normal limits CV: within normal limits Mental: within normal limits Temp: within normal limits Kleh-Bx-Oyumslapm: within normal limits Nausea and Vomiting: within normal limits Pain: within normal limits
--- NOTE | 2017-03-31 09:55 | Event Note ---
Patient post transesophageal echocardiogram still sedate. She is stable though. Discussed findings with the family.
[2017-03-31] MEDS: INSULIN REGULAR 100 UNIT/ML SUBCUT SCH ×4 (10:16→20:38)
[2017-03-31] MEDS: POLYVINYL ALCOHOL 1.4% OPH SOLN 15 ML BOTTLE BOTH EYES SCH ×4 (10:17→20:36)
[2017-03-31] MEDS: hydrALAZINE 25 MG TABLET PO SCH ×3 (10:17→20:37)
[2017-03-31] MEDS: OFLOXACIN 0.3% OPH SOLN 10 ML BOTTLE LEFT EYE SCH ×4 (10:17→20:35)
[2017-03-31] MEDS: ISOSORBIDE DINITRATE 20 MG TABLET PO SCH ×3 (10:17→20:37)
--- NOTE | 2017-03-31 10:17 | Nephrology Progress Note ---
Nephrology - PN: Subj Interval history: Patient is sedate status post BISHNU this morning. Physical exam general the patient has in no acute distress, she is drowsy from her procedure this morning, heart is regular rate and rhythm, she has 2+ pretibial edema, lungs are clear to auscultation anteriorly, abdomen is soft with positive bowel sounds Assessment/plan 1. Acute renal failure-this patient developed a contrast injury after heart catheterization. She has been recovering her creatinine is stable around 1.7 mg/dL, this may be her new baseline her creatinine was 1.2 mg/ dL when she presented initially to the hospital. 2. Diabetes mellitus 3. Cardiomyopathy-this patient has mitral and tricuspid regurgitation as well as a decreased ejection fraction around 35% 4. Volume overload-we will continue diuretics 5. Pulmonary hypertension-patient has a elevated right atrial pressure of around 65 mmHg Exam (PN)-Nephrology - Vital Signs Vital signs: Period Temp Pulse Resp BP Sys/Pina Pulse Ox Last 24 Hr 97.7 F-101.0 F 75-87 16-21 97-135/50-76 91-100 - Lab 03/31/17 02:50 03/31/17 02:50 Most recent lab results Calcium 8.0 MG/DL (8.5-10.1) L 03/31/17 02:50 Phosphorus 3.7 MG/DL (2.5-4.9) 03/18/17 02:19 Magnesium 2.3 MG/DL (1.8-2.4) 03/31/17 02:50 Assessment and Plan (1) Acute renal failure superimposed on chronic kidney disease Status: Acute Assessment and plan: I suspect this patient's acute injury is multifactorial in origin, the most prominent role is probably from contrast administration also contributing is the diuresis in the face of this as well as her underlying cardiomyopathy. I agree with holding her diuretics at this time I am also going to hold her hydralazine and allow her blood pressure to drift up a little bit from where it is presently. I do not feel any further workup is indicated at this time. Patient's renal ultrasound was unremarkable for kidney disease. Current Visit: Yes (2) Aortic insufficiency Status: Acute Current Visit: Yes Qualifiers: Cardiac valve disease etiology: nonrheumatic Qualified Code(s): I35.1 - Nonrheumatic aortic (valve) insufficiency (3) Congestive heart failure Status: Acute Current Visit: Yes Qualifiers: Congestive heart failure type: combined (4) Anemia Status: Chronic Assessment and plan: Patient's hematocrit is 30% Current Visit: Yes (5) Coronary artery disease Status: Chronic Current Visit: Yes Qualifiers: Coronary Disease-Associated Artery/Lesion type: [place] artery [place] vs. transplanted heart: [place] heart Associated angina: without angina Qualified Code(s): I25.10 - Atherosclerotic heart disease of [place] coronary artery without angina pectoris (6) Diabetes mellitus type 2 in obese Status: Chronic Current Visit: Yes (7) Essential hypertension Status: Chronic Current Visit: Yes (8) Hyperlipidemia Status: Chronic Current Visit: Yes Qualifiers: Hyperlipidemia type: pure hypercholesterolemia Qualified Code(s): E78.00 - Pure hypercholesterolemia, unspecified; E78.0 - Pure hypercholesterolemia (9) Mitral regurgitation Status: Chronic Current Visit: Yes Qualifiers: Cardiac valve disease etiology: nonrheumatic Qualified Code(s): I34.0 - Nonrheumatic mitral (valve) insufficiency Specialty Discharge - Follow Up or Referrals
[2017-03-31] MEDS: FERROUS SULFATE ER 140 MG TABLET PO SCH ×3 (10:18→20:36)
[2017-03-31] MEDS: FUROSEMIDE 40 MG/4 ML VIAL IV SCH (10:21)
--- NOTE | 2017-03-31 10:56 | Cardiology Progress Note ---
Assessment and Plan (1) NSTEMI (non-ST elevated myocardial infarction) Status: Acute Assessment and plan: 1. Ms. Rios is continued to improve clinically after her non-STEMI and is on proper medicine for this and her ischemic cardiomyopathy 2. BISHNU confirms approximately 3+ mitral stenosis and 3+ aortic stenosis 3. Three-vessel coronary artery disease (occluded ostial right coronary artery , 70% proximal LAD, 90% proximal circumflex) 4. Would treat medically for now given her modest anemia (hematocrit normal on presentation), will treat with p.o. iron given her microcytic MCV and recent anticoagulation. 5. Acute renal failure probably partially due to JONNA and partially due to acute MS; creatinine appears to be stable and renal service is following. 6. We will sign off and plan follow-up with next 1-2 weeks time; surgical intervention will be high risk and she cannot take blood transfusion due to her voice is a Mu-ism. We will give her a trial of medical therapy. Also note her valvular disease is borderline severe. 7. She can be discharged from cardiac standpoint. Current Visit: Yes (2) Aortic stenosis Status: Acute Current Visit: Yes (3) Mitral stenosis Status: Acute Current Visit: Yes (4) Acute renal failure superimposed on chronic kidney disease Status: Acute Current Visit: Yes Cardiology - PN: Subj Interval history: Ms. Moscoso is still sleepy after anesthesia for BISHNU but is having no shortness of breath or chest pain. She has made gradual progress in the last few days with regard to this. She did not have any bleeding problems. Exam (Progress Note) - Constitutional Vitals: Period Temp Pulse Resp BP Sys/Pina Pulse Ox Last 24 Hr 97.7 F-101.0 F 75-87 16-21 97-135/50-76 91-100 General appearance: no acute distress, over weight - Head Head exam: Present: normal inspection, normocephalic, atraumatic - Neck Neck exam: Present: normal inspection - Respiratory Respiratory exam: Present: rales. Absent: stridor, wheezes - Cardiovascular Cardiovascular exam: Present: regular rate and rhythm, systolic murmur (3/6 systolic murmur at the second intercostal space). Absent: diastolic murmur, rubs - GI/Abdominal GI/Abdominal exam: Present: soft. Absent: tenderness - Extremities Exam Extremities exam: Absent: edema Result/EKG - Labs CBC & BMP: 03/31/17 02:50 03/31/17 02:50 Labs: Laboratory Results - last 24 hr 03/30/17 03/30/17 03/30/17 11:21 16:10 19:37 WBC RBC Hgb Hct MCV MCH MCHC RDW Plt Count MPV Neut % (Auto) Lymph % (Auto) [place] % (Auto) Eos % (Auto) Baso % (Auto) Neut # (Auto) Lymph # (Auto) [place] # (Auto) Eos # (Auto) Baso # (Auto) Immature Gran % Nucleated RBC % Immature Gran # Nucleated RBCs # Sodium Potassium Chloride Carbon Dioxide Anion Gap BUN Creatinine GFR Calculation BUN/Creatinine Ratio Glucose POC Glucose 184 H 248 H 217 H Calculated Osmolality Calcium Magnesium 03/31/17 03/31/17 03/31/17 02:50 02:50 03:00 WBC 8.4 RBC 3.32 L Hgb 9.4 L Hct 27.8 L MCV 83.7 L MCH 28 MCHC 33.8 RDW 13.2 Plt Count 338 MPV 9.7 Neut % (Auto) 87.7 H Lymph % (Auto) 8.8 L [place] % (Auto) 2.9 Eos % (Auto) 0.0 Baso % (Auto) 0.1 Neut # (Auto) 7.4 Lymph # (Auto) 0.7 L [place] # (Auto) 0.2 Eos # (Auto) 0.0 Baso # (Auto) 0.0 Immature Gran % 0.5 Nucleated RBC % 0.0 Immature Gran # 0.04 Nucleated RBCs # 0.00 Sodium 134 L Potassium 4.1 Chloride 97 L Carbon Dioxide 26 Anion Gap 15.1 H BUN 39 H Creatinine 1.70 H GFR Calculation 28 BUN/Creatinine Ratio 22.00 H Glucose 173 H POC Glucose 203 H Calculated Osmolality 280.2 Calcium 8.0 L Magnesium 2.3 Quality Measures - VTE Contraindication to Pharmacological VTE Prophylaxis: High Risk of Bleeding Specialty Discharge - Follow Up or Referrals Follow up with: Arsenio Medley MD [Physician] - 2 Weeks (with EKG, FLP CMP CBC)
[2017-03-31] MEDS: glipiZIDE 5 MG TABLET PO SCH ×2 (12:53→16:46)
[2017-03-31] MEDS: MULTIVITAMIN (CENTRUM) TABLET PO SCH (12:53)
[2017-03-31] MEDS: CARVEDILOL 12.5 MG TABLET PO SCH ×2 (12:54→20:38)
[2017-03-31] MEDS: CLOTRIMAZOLE/BETAMETHASONE CREAM 15 GM TUBE TOP SCH ×2 (12:54→20:35)
[2017-03-31] MEDS: ASPIRIN EC 81 MG TABLET PO SCH (12:54)
--- NOTE | 2017-03-31 13:09 | ECHO Report ---
Danis Brianna Exam Date: 03/31/2017 08:07 Referring Physician: Technologist: Azeb Dasilva Age: 76 Ht (in): 62 Wt (lb): 155 Gender: F Exam Location: [facility] Echo Pre-op Dx: eval for clot, Eval . MV Post-op Dx: BP: / HR: 86 Rhythm: Sinus Technical Quality: Specimens Taken None Devices Implanted None Medications See anesthesia's notes Complications None Estimated Blood Loss None Proc. Components Transesophageal echocardiogram from gastric and transesophageal views. Sixto cavitation study. IMPRESSIONS 1. Left ventricle is of less than normal size with mild concentric left ventricular hypertrophy and global hypokinesis and ejection fraction 35%. 2. Right ventricle is upper limits normal size and systolic function may be mildly suppressed. 3. Right and left atrium are dilated. 4. There is spontaneous contrast in the right and left atrium but no thrombus seen. 5. Mitral thickened sclerotic and calcified with annular calcification with moderate stenosis at least and moderate regurgitation. 6. Aortic valve sclerotic consistent stenosis is at least moderate possibly worse. There is mild insufficiency. 7. Moderate to severe tricuspid regurgitation. 8. Mild pulmonic valve insufficiency. 9. There is a small PFO with trivial left to right shunting, there is no shunting on bubble study. MEASUREMENTS (Male / Female) Normal Values DOPPLER MV Peak Velocity 171.1 cm/s MV Peak Gradient 11.7 mmHg MV PHT Velocity 141.5 cm/s MV Deceleration Morrill 484.2 cm/s MV Pressure Half Time 87.7 ms MV Area PHT 2.5 cm FINDINGS Left Ventricle Left ventricle is probably upper limits of normal size with at least mild concentric left ventricular hypertrophy with global hypokinesis and an ejection fraction of 35%. Right Ventricle Right ventricle is in the upper limits of normal size. Systolic function is probably mildly depressed. Right Atrium Is at least mildly dilated. Left Atrium Left atrium is dilated with spontaneous contrast in the atrial chamber. LA Appendage Is actually enlarged and is without thrombus and normal Doppler flow. IA Septum There is a very small PFO demonstrated on color Doppler across the septum. There is minimal left to right flow. On micro cavitation/bubble study there is no evidence of shunting. Mitral Valve Mitral valve is thickened and sclerotic with mitral calcification and probably at least moderate stenosis (this could be worse) with moderate regurgitation. Aortic Valve Aortic valve appears to be a tricuspid structure sclerotic and calcified with marked decreased excursion with what is probably at least moderate stenosis if not worse. There is at least mild insufficiency. Tricuspid Valve Tricuspid valve grossly normal anatomically with moderate to severe regurgitation. Pulmonic Valve Pulmonic valve with mild insufficiency. Pericardium No specific or significant pericardial abnormalities noted. Aorta Aorta is normal diameter but does have some sclerotic plaquing.. German Nunn MD (Electronically Signed) Final Date: 31 March 2017 13:08
--- NOTE | 2017-03-31 13:22 | Hospitalist Progress Note ---
Assessment and Plan (1) Congestive heart failure Status: Acute Assessment and plan: 1)Ao stenosis moderate on BISHNU, MV stenosis also moderate- Dr Pavon consulted re: valve replacement. sats good, BP controlled. 2)CAD- recent NSTEMI on admission 3)SALUD on CKD- stable creatinine at 1.7 most recently- this is her baseline. 4)DM 5)anemia- [facility]. Dr Chaney evaluating for IV iron infusion. H&H stable. 6)stable on tele monitor, no more chest pain since 2 nights ago and that was likely GI. Current Visit: Yes Qualifiers: Congestive heart failure type: combined (2) Diabetes mellitus type 2 in obese Status: Chronic Current Visit: Yes (3) Essential hypertension Status: Chronic Current Visit: Yes (4) Anemia Status: Chronic Current Visit: Yes Hospitalist: Subjective Interval history: Mrs Moscoso was seen post BISHNU this morning. She roused to exam and fell back asleep due to sedation. No complaints. Exam - Constitutional Vitals: Period Temp Pulse Resp BP Sys/Pina Pulse Ox Last 24 Hr 97.4 F-101.0 F 75-87 16-20 101-134/50-69 91-100 General appearance: normal weight, no acute distress (lying flat and breathing comfortably) - Respiratory Respiratory exam: Present: clear to auscultation bilaterally - Cardiovascular Cardiovascular exam: Present: regular rate and rhythm - GI/Abdominal GI/Abdominal exam: Present: normal bowel sounds, soft - Extremities Exam Extremities exam: Present: edema (1+ lower extremities) Results - Labs CBC & BMP: 03/31/17 02:50 03/31/17 02:50 Lab Results: I have reviewed the past 24 hour labs Quality Measures - VTE Contraindication to Pharmacological VTE Prophylaxis: High Risk of Bleeding Specialty Discharge - Follow Up or Referrals Follow up with: Arsenio Medley MD [Physician] - 2 Weeks (with EKG, FLP CMP CBC)
[2017-03-31] MEDS: ENOXAPARIN 30 MG/0.3 ML SYRINGE SUBCUT SCH (16:46)
[2017-03-31] MEDS: ERGOCALCIFEROL 50,000 UNIT CAPSULE PO SCH (18:31)
[2017-03-31] MEDS: BISACODYL 5 MG TABLET PO PRN (20:36)
[2017-03-31] MEDS: sitaGLIPtin 25 MG TABLET PO SCH (20:37)
[2017-03-31] MEDS: ATORVASTATIN 80 MG TABLET PO SCH (20:37)
[2017-03-31] MEDS: CYCLOBENZAPRINE 10 MG TABLET PO PRN (23:21)
[2017-04-01] MEDS: ALBUTEROL/IPRATROPIUM 3 ML NEB RESP TX SCH ×4 (00:35→11:30)
[2017-04-01 04:59] LABS: Eosinophils % 0.2 % (0.00-10.9); Hematocrit 28.2 VOL% (35.7-47.0); Hemoglobin 9.7 GM/DL (12.0-16.0); Immature Granulocytes % 0.6 %; Immature Granulocytes Absolute 0.08 #; Lymphocytes # 2.3 10*3/uL (1.4-4.0); Mean Corpuscular HGB Conc 34.4 GM/DL (32-36); Mean Corpuscular Hemoglobin 29 PG (27-34); Mean Corpuscular Volume 83.4 FL (87-102); Mean Platelet Volume 9.7 FL (9.6-12.0); Monocytes # 0.9 10*3/uL (0.11-0.8); Monocytes % 6.7 % (1.7-12.7); Neutrophils # 10.3 10*3/uL (1.4-7.4); Neutrophils % 75.5 % (38.7-73.9); Platelet Count 405 T/CUMM (130-400); Red Blood Count 3.38 MC/CUMM (3.8-5.5); Red Cell Distribution Width 13.3 % (9.3-17.3); White Blood Count 13.7 T/CUMM (4-12)
[2017-04-01 05:36] LABS: Calcium 7.7 MG/DL (8.5-10.1); Magnesium 2.4 MG/DL (1.8-2.4); Osmolality,Calculated 275.7 MOS/KG (273-304); Potassium 4.1 MMOL/L (3.5-5.1)
--- NOTE | 2017-04-01 07:56 | Nephrology Progress Note ---
Nephrology - PN: Subj Interval history: Patient is resting comfortably she voices no complaints. Low-grade temperature noted. Serum creatinine is noted to be 2.0. Exam (PN)-Nephrology - Vital Signs Vital signs: Period Temp Pulse Resp BP Sys/Pina Pulse Ox Last 24 Hr 97.4 F-100.3 F 71-92 16-20 103-126/54-69 90-99 - General Appearance General appearance: well-developed, well-nourished EENT: ATNC Neck: supple Respiratory: clear Cardiology: no edema, regular rate, regular rhythm Gastrointestinal: normoactive bowel sounds, no tenderness Integumentary: no rash Neurologic: alert and oriented x3 Musculoskeletal: no clubbing - Lab 04/01/17 04:28 04/01/17 04:28 Most recent lab results Calcium 7.7 MG/DL (8.5-10.1) L 04/01/17 04:28 Phosphorus 3.7 MG/DL (2.5-4.9) 03/18/17 02:19 Magnesium 2.4 MG/DL (1.8-2.4) 04/01/17 04:28 Assessment and Plan (1) Congestive heart failure Status: Acute Current Visit: Yes Qualifiers: Congestive heart failure type: combined (2) Diabetes mellitus type 2 in obese Status: Chronic Current Visit: Yes (3) Essential hypertension Status: Chronic Current Visit: Yes (4) Anemia Status: Chronic Current Visit: Yes (5) Acute renal failure superimposed on chronic kidney disease Status: Acute Assessment and plan: Avoid nephrotoxic agents. Avoid NSAIDs. BMP. Current Visit: Yes Qualifiers: Chronic kidney disease stage: stage 3 (moderate) Specialty Discharge - Follow Up or Referrals Follow up with: Arsenio Medley MD [Physician] - 2 Weeks (with EKG, FLP CMP CBC)
[2017-04-01 08:11] VITALS: BP 134/61
[2017-04-01] MEDS: POLYVINYL ALCOHOL 1.4% OPH SOLN 15 ML BOTTLE BOTH EYES SCH (08:31)
[2017-04-01] MEDS: ISOSORBIDE DINITRATE 20 MG TABLET PO SCH (08:31)
[2017-04-01] MEDS: MULTIVITAMIN (CENTRUM) TABLET PO SCH (08:31)
[2017-04-01] MEDS: CARVEDILOL 12.5 MG TABLET PO SCH (08:31)
[2017-04-01] MEDS: ASPIRIN EC 81 MG TABLET PO SCH (08:31)
[2017-04-01] MEDS: FERROUS SULFATE ER 140 MG TABLET PO SCH (08:31)
[2017-04-01] MEDS: hydrALAZINE 25 MG TABLET PO SCH (08:31)
[2017-04-01] MEDS: OFLOXACIN 0.3% OPH SOLN 10 ML BOTTLE LEFT EYE SCH (08:31)
[2017-04-01] MEDS: glipiZIDE 5 MG TABLET PO SCH (08:31)
[2017-04-01] MEDS: CLOTRIMAZOLE/BETAMETHASONE CREAM 15 GM TUBE TOP SCH (08:31)
[2017-04-01] MEDS: INSULIN REGULAR 100 UNIT/ML SUBCUT SCH (08:32)
[2017-04-01] MEDS ORDERED: FUROSEMIDE 40 MG TABLET PO SCH (09:00)
--- NOTE | 2017-04-01 10:10 | Discharge Summary ---
Hospital Course - Hospital Course Hospital Course: Ms. Moscoso is a 76-year-old Taoism female with history of diabetes , chronic systolic CHF, CAD with previous VT and stenting, and hypertension admitted by the hospitalist service on 03/17/17 as a transfer from [facility] for evaluation of shortness of breath and chest pain. She had labored breathing, conversational dyspnea, bilateral diffuse rales on admission. She also had an elevated troponin of 1.28. she was diuresed, started on a beta- hector, Lovenox, statin, and aspirin. Venous Dopplers were negative, echo showed moderate to severely depressed EF with advanced diastolic dysfunction and valvular heart disease of aortic insufficiency and biatrial enlargement. Cardiology was consulted. Patient had a non-STEMI on admission. Patient underwent left heart cath by Dr. Hall on 03/20/2017 where he found worsening LV function. She also had significant two-vessel disease. She has 3+ aortic insufficiency which was playing a role in her worsening LV function. Dr. Hall felt she was not an optimal candidate for aortic valve replacement and to treat blood pressure and diuresis clinically. She was preparing for discharge when her creatinine katy from 1.9-2.6. Her Lasix was held and she was gently hydrated. Nephrology was consulted to help manage. She was monitored closely for volume overload. Her creatinine improved but then her anemia worsened. They discontinued her Plavix and consulted hematology Due to her being a Taoism and not allowing blood transfusion and in case she may require cardiac surgery at a later time. Dr. Chaney gave her IV iron but he states it would take several weeks before the hemoglobin levels would start improving. He felt she was a high risk for surgery and was unsure if it would even make a difference in her presurgical risk stratification. Patient developed some noncardiac chest pain was moved to the ICU. Dr. Nunn performed a transesophageal echo in preparation for possible cardiac surgery. He found the LV hypertrophy and hypokinesis with an EF of 35%. Aortic valve was was sclerotic with moderate stenosis. She also had a small PFO with trivial left-to -right shunting. Patient's chest pain is resolved and her creatinine is at her baseline normal. Patient will need to follow-up with Dr. Medley in the next 1 -2 weeks and her family physician as well. She will also get some home health to assist with her medicines at home. Patient's care was coordinated with Dr. Ozuna the hospitalist, cardiology, hematology, nephrology, patient and family. Care coordination, chart review, and discharge paperwork took approximately 47 minutes. - Time spent with patient Time with patient DS: Greater than 30 minutes Diagnosis - Discharge Diagnosis (1) Diabetes mellitus type 2 in obese Status: Chronic (2) Hyperlipidemia Status: Chronic (3) Essential hypertension Status: Chronic (4) Coronary artery disease Status: Chronic (5) Aortic insufficiency Status: Chronic (6) Mitral regurgitation Status: Chronic (7) Biatrial enlargement Status: Chronic (8) Acute renal failure superimposed on chronic kidney disease Status: Resolved (9) NSTEMI (non-ST elevated myocardial infarction) Status: Resolved (10) Aortic stenosis Status: Chronic Specialty Discharge - Follow Up or Referrals Follow up with: Maddie Navarro DO [Physician] - 1 Week Arsenio Medley MD [Physician] - 2 Weeks (with EKG, FLP CMP CBC) Discharge Plan - Discharge Data Disposition: Disch To Home/Self Care Condition at Discharge: Stable Discharge Diet: diabetic diet, heart healthy Activity: resume usual activities as tolerated Contact your physician if you experience:: Shortness of breath, pain uncontrolled by pain medications - Discharge Medications New Bisacodyl Tab [Dulcolax Tab] 10 mg PO DAILY PRN tablet PRN Reason: Constipation Carvedilol [Coreg] 12.5 mg PO BID #120 tablet Ferrous Sulfate ER Tab [Slow Fe] 140 mg PO TID #90 tablet Furosemide Tab [Lasix Tab] 40 mg PO DAILY #60 tablet glipiZIDE [Glucotrol] 5 mg PO BIDAC #60 tablet hydrALAZINE TAB [Apresoline Tab] 25 mg PO TID #90 tablet Isosorbide Dinitrate [Isordil] 20 mg PO TID #90 tablet Aspirin EC Tab 81 mg PO DAILY tablet Atorvastatin [Lipitor] 80 mg PO BEDTIME #60 tablet Cyclobenzaprine [Flexeril] 10 mg PO TID PRN #30 tablet PRN Reason: leg cramps sitaGLIPtin [Januvia] 50 mg PO BEDTIME #30 tablet Continue Nitroglycerin Sl Tab [Nitrostat] 0.4 mg SL Q5M PRN PRN Reason: Chest Pain Ergocalciferol (Vitamin D2) [Vitamin D2] 50,000 unit PO Q7D Ofloxacin 0.3% Oph Soln [Ocuflox 0.3% Oph Soln] 1 drop LEFT EYE QID Multivitamin (Centrum) [Centrum Tab] 1 tablet PO DAILY Clotrimazole/Betamethasone Dip [Clotrimazole/Betamethasone Cream] 1 applic TOP BID Polyvinyl Alcohol [Artificial Tears] 15 ml BOTH EYES QID Propylene Glycol/Peg 400 [Systane Gel Drops] 1 drop BOTH EYES QID PRN PRN Reason: Dry Eyes Discontinued Potassium Chloride Cap/Tab [K Dur] 20 meq PO DAILY Clopidogrel [Plavix] 75 mg PO DAILY Furosemide Tab [Lasix Tab] 20 mg PO DAILY - Follow Up or Referral Follow Up: Arsenio Medley MD [Physician] - 2 Weeks (with EKG, FLP CMP CBC) Maddie Navarro DO [Physician] - 1 Week - Forms/Instructions Instructions: Coronary Artery Disease (GEN), Left Heart Catheterization (DC), Right Heart Catheterization (DC), Heart Healthy Diet (GEN), Associated Pulmonary Arterial Hypertension (DC) Exam - Constitutional Vitals: Period Temp Pulse Resp BP Sys/Pina Pulse Ox Last 24 Hr 97.4 F-100.3 F 71-92 16-20 103-134/54-69 90-99 Exam: 76-year-old female, no acute distress, alert and oriented Chest clear CV regular rate and rhythm Abdomen soft and nontender Extremities with 1+ edema Discharge Results Procedures and tests throughout hospitalization: Pending Orders 03/31/17 06:11 CL heart Routine 04/02/17 04:00 BMP w/ Mg [Basic Metabolic Panel w/Mg] IN AM Comp Blood Count Auto Diff IN AM 04/03/17 04:00 BMP w/ Mg [Basic Metabolic Panel w/Mg] IN AM Comp Blood Count Auto Diff IN AM Labs on day of discharge: Labs from last 24 hours 04/01/17 04/01/17 04/01/17 07:21 04:28 04:28 WBC 13.7 H D RBC 3.38 L Hgb 9.7 L Hct 28.2 L MCV 83.4 L MCH 29 MCHC 34.4 RDW 13.3 Plt Count 405 H MPV 9.7 Neut % (Auto) 75.5 H Lymph % (Auto) 17.0 L [place] % (Auto) 6.7 Eos % (Auto) 0.2 Baso % (Auto) 0.0 Neut # (Auto) 10.3 H Lymph # (Auto) 2.3 [place] # (Auto) 0.9 H Eos # (Auto) 0.0 Baso # (Auto) 0.0 Immature Gran % 0.6 Nucleated RBC % 0.0 Immature Gran # 0.08 Nucleated RBCs # 0.00 Sodium 131 L Potassium 4.1 Chloride 95 L Carbon Dioxide 25 Anion Gap 15.1 H BUN 48 H Creatinine 2.00 H GFR Calculation 23 BUN/Creatinine Ratio 24.00 H Glucose 113 H POC Glucose 119 H Calculated Osmolality 275.7 Calcium 7.7 L Magnesium 2.4 03/31/17 03/31/17 03/31/17 19:46 16:16 12:04 WBC RBC Hgb Hct MCV MCH MCHC RDW Plt Count MPV Neut % (Auto) Lymph % (Auto) [place] % (Auto) Eos % (Auto) Baso % (Auto) Neut # (Auto) Lymph # (Auto) [place] # (Auto) Eos # (Auto) Baso # (Auto) Immature Gran % Nucleated RBC % Immature Gran # Nucleated RBCs # Sodium Potassium Chloride Carbon Dioxide Anion Gap BUN Creatinine GFR Calculation BUN/Creatinine Ratio Glucose POC Glucose 185 H 268 H 211 H Calculated Osmolality Calcium Magnesium 03/31/17 09:49 WBC RBC Hgb Hct MCV MCH MCHC RDW Plt Count MPV Neut % (Auto) Lymph % (Auto) [place] % (Auto) Eos % (Auto) Baso % (Auto) Neut # (Auto) Lymph # (Auto) [place] # (Auto) Eos # (Auto) Baso # (Auto) Immature Gran % Nucleated RBC % Immature Gran # Nucleated RBCs # Sodium Potassium Chloride Carbon Dioxide Anion Gap BUN Creatinine GFR Calculation BUN/Creatinine Ratio Glucose POC Glucose 206 H Calculated Osmolality Calcium Magnesium DS: Provider Date of admission: 03/17/17 16:34 Primary care physician: Adam Juárez MD Attending physician on admission: Pb Hale DO Consults: 03/17/17 18:19 Consult to Physician [CONS] Routine Comment: acute on chronic CHF, NSTEMI Consulting Provider: Consult to Specialist Group: Cardiology When should Consulting Provider be notified: In am 03/20/17 14:13 Consult to Cardiac Rehabilitation [CONS] Routine Reason for Cardiac Rehabilitation: Risk Factor Modification 03/23/17 15:02 Consult to Physician [CONS] Routine Comment: Acute renal failure, CHF EF 35%, s/p heart cath Consulting Provider: Consult to Specialist Group: Nephrology When should Consulting Provider be notified: Now Consult Notification Comment: LEFT MESSAGE AT 1510 03/29/17 12:36 Consult to Physician [CONS] Routine Comment: microcytic anemia; preop IV iron therapy? Consulting Provider: Dane Chaney Person Notified: Celine Date Notified: 03/29/17 Time Notified: 01:15 Discharging clinician: RAPHAEL Kwan Expected date of discharge: 04/01/17
== END 2017-04-01 11:40 | disposition home health service (06) | DRG 280 ==
LOC: N.ED 14:35 → N.EDINP 16:34 → SUATTDRO 16:34 → N.CC 17:01 → N.TELES 03-19 13:56 → N.CC 03-29 21:11 → N.TELEN 03-30 15:10
PROVIDERS: ADMIT Internal Medicine; ATTEND Internal Medicine

== ENCOUNTER 2017-04-05 01:05 | Inpatient (IN) ==
[2017-04-05] MEDS ORDERED: NITROGLYCERIN 2% OINT 1 INCH/GM PACK TOP STA (01:20)
[2017-04-05] MEDS ORDERED: ETOMIDATE 20 MG/10 ML VIAL IV ONE ×2 (01:20→01:35)
[2017-04-05] MEDS ORDERED: MORPHINE 2 MG/1 ML SYRINGE IV STA (01:20)
[2017-04-05] MEDS ORDERED: SUCCINYLCHOLINE 200 MG/10 ML VIAL IV STA (01:20)
[2017-04-05] MEDS ORDERED: ASPIRIN 325 MG TABLET PO STA (01:20)
--- NOTE | 2017-04-05 01:33 | Emergency Department Note ---
Dylon Thakur Gwan, am scribing for, and in the presence of, Abhilash Fitch MD 01:28. Constantine Thakur Robert M, MD, personally performed the services described in this documentation, ascribed by Kareen Osborne in my presence, and it is both accurate and complete . Arrival - Arrival Chief Complaint: Chest Pain Stated Complaint: Chest Pain ED Nursing Triage Note: Patient complains of non-reproducible left sided chest pain that began right before she went to bed. Patient also states that she is having trouble breathing. Nasal flaring, acessory muscle use noted upon triage. O2 saturation 85% upon triage. Patient has a history of CHF. States that patient had a recent CT with stent placement. 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 Patient received SL nitroglycerin by EMS with no relief. Mode of Arrival: Stretcher Limitations: No Limitations Source: Patient, Family, Old Records Reviewed, RN Notes Reviewed Time Seen by Provider: 04/05/17 01:17 - History of Present Illness HPI Narrative: Patient is a 76 y/o black female who presents to the ED via EMS with left sided chest pain and SOB with an onset last night. Family noted that as the pt was getting ready for bed, she began to have difficulty breathing prompting them to alert EMS. During exam, pt displayed accessory muscle use, 1-2 word sentences and O2 sat were at 85% at triage. She denies a SHx of smoking cigarettes. Patient has a PMHx of CHF, CT and stent placement performed by Dr. Medley. En route, pt received NTG with little to no relief. During exam, patient was notified about the need to be put on life support. She verbally gave consent and acknowledged the need and want of life support and/or life saving measures to be performed. Family also acknowledged agreement. Onset (ago): hour(s) Consistency: constant Severity: moderate Date of Last Menstrual Period: hysterectomy Allergies/Adverse Reactions: Allergies Allergy/AdvReac Type Severity Reaction Status Date / Time No Known Allergies Allergy Unverified 03/17/17 14:59 Home Medications: Home Medications Medication Instructions Recorded Confirmed Type Clotrimazole/Betamethasone Dip 1 applic TOP BID 03/17/17 04/05/17 History [Clotrimazole/Betamethasone Cream] Ergocalciferol (Vitamin D2) 50,000 unit PO Q7D 03/17/17 04/05/17 History [Vitamin D2] Multivitamin (Centrum) [Centrum 1 tablet PO DAILY 03/17/17 04/05/17 History Tab] Nitroglycerin Sl Tab [Nitrostat] 0.4 mg SL Q5M PRN 03/17/17 04/05/17 History Ofloxacin 0.3% Oph Soln [Ocuflox 1 drop LEFT EYE QID 03/17/17 04/05/17 History 0.3% Oph Soln] Polyvinyl Alcohol [Artificial 15 ml BOTH EYES QID 03/17/17 04/05/17 History Tears] Propylene Glycol/Peg 400 [Systane 1 drop BOTH EYES QID PRN 03/17/17 04/05/17 History Gel Drops] Aspirin EC Tab 81 mg PO DAILY tablet 04/01/17 04/05/17 Rx Atorvastatin [Lipitor] 80 mg PO BEDTIME #60 tablet 04/01/17 04/05/17 Rx Bisacodyl Tab [Dulcolax Tab] 10 mg PO DAILY PRN tablet 04/01/17 04/05/17 Rx Carvedilol [Coreg] 12.5 mg PO BID #120 tablet 04/01/17 04/05/17 Rx Cyclobenzaprine [Flexeril] 10 mg PO TID PRN #30 tablet 04/01/17 04/05/17 Rx Ferrous Sulfate ER Tab [Slow Fe] 140 mg PO TID #90 tablet 04/01/17 04/05/17 Rx Furosemide Tab [Lasix Tab] 40 mg PO DAILY #60 tablet 04/01/17 04/05/17 Rx Isosorbide Dinitrate [Isordil] 20 mg PO TID #90 tablet 04/01/17 04/05/17 Rx glipiZIDE [Glucotrol] 5 mg PO BIDAC #60 tablet 04/01/17 04/05/17 Rx hydrALAZINE TAB [Apresoline Tab] 25 mg PO TID #90 tablet 04/01/17 04/05/17 Rx sitaGLIPtin [Januvia] 50 mg PO BEDTIME #30 tablet 04/01/17 04/05/17 Rx Review of System - Review of System 12 point system: reviewed and no additional remarkable complaints except as stated - Review of System Constitutional: Absent: chills, fever Eyes: Absent: discharge, pain Head/Ears/Nose/Throat: Absent: earache Respiratory: Absent: cough Cardiovascular: Present: as per HPI, chest pain, other (shotenss of breathe ) Gastrointestinal: Absent: abdominal pain, nausea, vomiting, diarrhea Genitourinary female: Absent: dysuria Musculoskeletal: Absent: arm pain, back pain, leg pain, neck pain Skin: Absent: rash, lesions Neurological: Absent: headache, weakness Psychiatric: Absent: anxiety, depression Medical,Surgical,& Family Hx - Medical History Cardio: History of: CHF, CAD (PCI 10/19/2011), Hypertension, CT, PVD (Peripheral Stent x2.) No history of: Pacemaker Neurology: No history of: Cerebrovascular Accident Endocrine: History of: Diabetes Mellitus (NIDDM) Respiratory: No history of: Asthma, COPD, Pulmonary Embolism Gastrointestinal: No history of: GERD Musculoskeletal: History of: Back/Neck Problems (1971) Other: No history of: Cancer - Surgical History Cardiac Surgeries: Sugical HX of: Cardiac Catheterization HEENT Surgeries: Patient denies: Tonsilectomy & Adenoidectomy Abdominal Surgeries: Patient denies: Abdominal Surgery Reproductive Surgeries: Surgical HX of;: Hysterectomy Orthopedic Surgeries: Patient denies;: Orthopedic Surgery - Family History Family History: Reports;: Family Cancer (Brother (leukemia)), Family Heart Disease, Family Hypertension, Family Stroke - Social History Smoking Status: Never smoker Frequency of Alcohol Use: None Type of Drug Use: None Exam Vital Signs: Vital Signs Temperature 97.7 F 04/05/17 01:05 Pulse Rate 87 04/05/17 01:05 Respiratory Rate 12 04/05/17 01:53 Blood Pressure 153/74 04/05/17 01:05 O2 Sat by Pulse Oximetry 85 L 04/05/17 01:05 - General General appearance: alert, anxious, in distress - Head Head exam: Present: atraumatic, normocephalic - Eye Eye exam: Present: normal appearance, PERRL, EOMI - ENT ENT exam: Present: normal oropharynx, mucous membranes moist, TM's normal bilaterally, normal external ear exam - Neck Neck exam: Present: full ROM, trachea midline. Absent: tenderness - Chest Chest inspection: Present: symmetric chest wall rise. Absent: tenderness - Respiratory Respiratory exam: Present: accessory muscle use, rales, respiratory distress, rhonchi - Abdominal Exam Abdominal exam: Present: soft, normal bowel sounds. Absent: tenderness - Extremities Exam Extremities exam: Present: full ROM. Absent: tenderness - Back Exam Back exam: Present: full ROM. Absent: tenderness - Neurological Exam Neurological exam: Present: alert, oriented X3, CN II-XII intact. Absent: motor sensory deficit - Psychiatric Psychiatric exam: Present: anxious - Skin Skin exam: Present: warm, dry, intact, normal color Course - Reevaluation(s) Reevaluation #1: Note is made that the patient had a recent cardiac catheterization and transesophageal echocardiogram. These demonstrated aortic stenosis with mild regurg and mitral stenosis with mild regurg. Additionally the ejection fraction is approximately 35%. The patient has severe two-vessel disease involving LAD right and circumflex arteries. No interventions were performed at time of catheterization. Time: 01:48 - Consultations Consultation #1: Dr. German Aldana will admit to the hospitalist service. Time: 02:17 Procedures - Intubation Time out performed: Yes sedative: Etomidate Mg Given: 20 paralytic: Succinylcholine Mg Given: 100 Laryngoscope: fiber optic video scope Assist Device Used: fiber optic device ET Tube Size: 8 Tube Secured Depth (cm): 21 Tube Secured Location: teeth Tube Placement Confirmation: visualized tube passing through cords, equal breath sounds bilaterally, no breath sounds over epigastrium, confirmation by capnometry, confirmation detector color change Patient Tolerated Procedure: well Intubation Complications: none Results - Labs CBC & BMP: 04/05/17 01:39 04/05/17 01:39 Lab Results: I have reviewed the patients labs Labs: Lab Results WBC 24.3 T/CUMM (4-12) H D 04/05/17 01:39 RBC 3.87 MC/CUMM (3.8-5.5) 04/05/17 01:39 Hgb 11.0 GM/DL (12.0-16.0) L 04/05/17 01:39 Hct 34.1 VOL% (35.7-47.0) L 04/05/17 01:39 MCV 88.1 FL (87-102) 04/05/17 01:39 MCH 28 PG (27-34) 04/05/17 01:39 MCHC 32.3 GM/DL (32-36) 04/05/17 01:39 RDW 13.8 % (9.3-17.3) 04/05/17 01:39 Plt Count 535 T/CUMM (130-400) H D 04/05/17 01:39 MPV 9.0 FL (9.6-12.0) L 04/05/17 01:39 Neut % (Auto) 88.4 % (38.7-73.9) H 04/05/17 01:39 Lymph % (Auto) 5.9 % (21.3-54.2) L 04/05/17 01:39 [place] % (Auto) 4.2 % (1.7-12.7) 04/05/17 01:39 Eos % (Auto) 0.7 % (0.00-10.9) 04/05/17 01:39 Baso % (Auto) 0.1 % (0.0-0.8) 04/05/17 01:39 Neut # (Auto) 21.5 10*3/uL (1.4-7.4) H 04/05/17 01:39 Lymph # (Auto) 1.4 10*3/uL (1.4-4.0) 04/05/17 01:39 Baker # (Auto) 1.0 10*3/uL (0.11-0.8) H 04/05/17 01:39 Eos # (Auto) 0.2 10*3/uL (0.0-0.87) 04/05/17 01:39 Baso # (Auto) 0.0 10*3/uL (0.0-0.2) 04/05/17 01:39 Immature Gran % 0.7 % 04/05/17 01:39 Nucleated RBC % 0.1 /100WBC 04/05/17 01:39 Immature Gran # 0.17 # 04/05/17 01:39 Nucleated RBCs # 0.02 10*3/uL 04/05/17 01:39 INR 1.1 04/05/17 01:39 PT Patient/Control Mix 11.4 SECS 04/05/17 01:39 Sodium 138 MMOL/L (136-145) 04/05/17 01:39 Potassium 6.0 MMOL/L (3.5-5.1) H* 04/05/17 01:39 Chloride 103 MMOL/L (98-107) 04/05/17 01:39 Carbon Dioxide 23 MMOL/L (21-32) 04/05/17 01:39 Anion Gap 18.0 MMOL/L (5.0-15.0) H 04/05/17 01:39 BUN 39 MG/DL (7-18) H 04/05/17 01:39 Creatinine 1.90 MG/DL (0.55-1.02) H 04/05/17 01:39 GFR Calculation 24 ML/MIN 04/05/17 01:39 BUN/Creatinine Ratio 20.00 RATIO (6.00-20.00) 04/05/17 01:39 Glucose 221 MG/DL (74-106) H 04/05/17 01:39 Calculated Osmolality 290.7 MOS/KG (273-304) 04/05/17 01:39 Calcium 7.6 MG/DL (8.5-10.1) L 04/05/17 01:39 Magnesium 2.3 MG/DL (1.8-2.4) 04/05/17 01:39 Total Bilirubin 0.40 MG/DL (0.2-1.0) 04/05/17 01:39 AST 116 U/L (0-37) H 04/05/17 01:39 ALT 70 U/L (13-56) H 04/05/17 01:39 Alkaline Phosphatase 253 U/L (45-117) H 04/05/17 01:39 Troponin I 0.467 NG/ML (0.00-0.045) H 04/05/17 01:39 B-Natriuretic Peptide 1489 PG/ML (2-100) H 04/05/17 01:39 Total Protein 6.6 G/DL (6.4-8.3) 04/05/17 01:39 Albumin 2.5 G/DL (3.4-5.0) L 04/05/17 01:39 Globulin 4.1 G/DL (2.3-3.5) H 04/05/17 01:39 Albumin/Globulin Ratio 0.6 RATIO (1.1-2.2) L 04/05/17 01:39 Lipase 269.0 U/L (73-393) 04/05/17 01:39 Urine Color Yellow (Yellow) 04/05/17 02:10 Urine Appearance Cloudy (Clear) 04/05/17 02:10 Urine pH 5.0 (4.5-8.0) 04/05/17 02:10 Ur Specific [place] 1.011 (1.001-1.035) 04/05/17 02:10 Urine Protein 100 MG/DL 04/05/17 02:10 Urine Glucose (UA) Negative mg/dL (Negative) 04/05/17 02:10 Urine Ketones Negative mg/dL (Negative) 04/05/17 02:10 Urine Blood Negative mg/dL (Negative) 04/05/17 02:10 Urine Nitrate Negative (Negative) 04/05/17 02:10 Urine Bilirubin Negative mg/dL (Negative) 04/05/17 02:10 Urine Urobilinogen < 2.0 EU/DL (0.2-1.0) H 04/05/17 02:10 Urine Leukocytes Negative Michaela/ul (Negative) 04/05/17 02:10 Urine RBC 2 /HPF (0-4) 04/05/17 02:10 Urine WBC 2 /HPF (0-6) 04/05/17 02:10 Ur Squamous Epith Cells Occasional /HPF (0-10) 04/05/17 02:10 Amorphous Crystals Occasional /HPF (Few) 04/05/17 02:10 Urine Bacteria Few /HPF (Few) 04/05/17 02:10 Hyaline Casts 1 /LPF (0-3) 04/05/17 02:10 Ur Culture Indicated? Not indicated 04/05/17 02:10 ABG pH 7.291 (7.35-7.45) L 04/05/17 01:45 ABG pCO2 46.4 MM HG (35-48) 04/05/17 01:45 ABG pO2 307.0 MM HG (80-95) H 04/05/17 01:45 ABG HCO3 20.8 MMOL/L (20-26) 04/05/17 01:45 ABG Total CO2 20.4 MMOL/L (23-27) L 04/05/17 01:45 ABG O2 Saturation 99.8 % (95-100) 04/05/17 01:45 ABG Base Excess -4.3 MMOL/L (-2.5-2.5) L 04/05/17 01:45 FiO2 100.00 PERCENT (0-100) 04/05/17 01:45 - EKG EKG results: interpreted by [facility] Critical Care Time Critical Care Time: Yes Total Critical Care Time: 43 Disposition Clinical Impression: Pulmonary edema, Respiratory failure, Aortic valve stenosis, Diabetes mellitus type 2 in obese, Mitral stenosis, Essential hypertension, Biatrial enlargement, Anemia Case discussed with: patient, patient's family Disposition: Still a Patient Condition: Stable Time of Disposition: 02:17
[2017-04-05] MEDS ORDERED: SUCCINYLCHOLINE 200 MG/10 ML VIAL ONE (01:35)
[2017-04-05] MEDS ORDERED: PROPOFOL 1,000 MG/100 ML BOTTLE IV ONE (01:37)
[2017-04-05] MEDS ORDERED: VECURONIUM 10 MG VIAL IV ONE (01:43)
[2017-04-05] MEDS ORDERED: FUROSEMIDE 40 MG/4 ML VIAL IV STA (01:45)
[2017-04-05 01:54] LABS: ABG Base Excess -4.3 MMOL/L (-2.5-2.5); ABG HCO3 20.8 MMOL/L (20-26); ABG Oxygen Saturation 99.8 % (95-100); ABG PCO2 46.4 MM HG (35-48); ABG PH 7.291 (7.35-7.45); ABG TCO2 20.4 MMOL/L (23-27); Allen Test Positive; Pt O2 Delivery Device Ventilator
[2017-04-05] MEDS: PROPOFOL 1,000 MG/100 ML BOTTLE IV SCH ×2 (01:56→14:30)
[2017-04-05 02:19] LABS: Basophils % 0.1 % (0.0-0.8); Eosinophils # 0.2 10*3/uL (0.0-0.87); Eosinophils % 0.7 % (0.00-10.9); Hematocrit 34.1 VOL% (35.7-47.0); Immature Granulocytes % 0.7 %; Immature Granulocytes Absolute 0.17 #; Lymphocytes # 1.4 10*3/uL (1.4-4.0); Lymphocytes % 5.9 % (21.3-54.2); Mean Corpuscular HGB Conc 32.3 GM/DL (32-36); Mean Corpuscular Hemoglobin 28 PG (27-34); Mean Corpuscular Volume 88.1 FL (87-102); Monocytes % 4.2 % (1.7-12.7); NRBC # 0.02 10*3/uL; Neutrophils # 21.5 10*3/uL (1.4-7.4); Neutrophils % 88.4 % (38.7-73.9); Platelet Count 535 T/CUMM (130-400); Red Blood Count 3.87 MC/CUMM (3.8-5.5); Red Cell Distribution Width 13.8 % (9.3-17.3); White Blood Count 24.3 T/CUMM (4-12)
[2017-04-05 02:24] LABS: Amorphous Crystals,Urine Occasional /HPF (Few); Apearance,Urine CLOUDY (Clear); Bacteria,Urine Few /HPF (Few); Bilirubin,Urine Negative (Negative); Blood, Urine Negative (Negative); Glucose,Urine (UA) Negative (Negative); Hyaline Casts,Urine 1 /LPF (0-3); Ketones,Urine Negative (Negative); Nitrite,Urine Negative (Negative); Protein,Urine 100 MG/DL; RBC,Urine 2 /HPF (0-4); Squamous Epithelial Cell,Urine Occasional /HPF (0-10); Urine Color Yellow (Yellow); Urine Specific Gravity 1.011 (1.001-1.035); Urine Urobilinogen < 2.0 EU/DL (0.2-1.0); WBC,Urine 2 /HPF (0-6)
[2017-04-05 02:27] LABS: INR 1.1; PT Patient Result 11.4 SECS
[2017-04-05] MEDS ORDERED: cefTRIAXone 1,000 MG in SODIUM CHLORIDE 0.9% 100 ML IV STA (02:39)
[2017-04-05] MEDS ORDERED: FUROSEMIDE 40 MG/4 ML VIAL ONE (02:39)
[2017-04-05] MEDS ORDERED: DEXTROSE 50% 25 GM/50 ML VIAL IV PRN (02:45)
[2017-04-05] MEDS ORDERED: POTASSIUM CHLORIDE RIDER 10 MEQ in PREMIX 1 EACH IV PRN (02:45)
[2017-04-05] MEDS ORDERED: MAGNESIUM SULF RIDER 4 GM in PREMIX 1 EACH IV PRN (02:45)
[2017-04-05] MEDS ORDERED: GLUCAGON 1 MG VIAL IM PRN (02:45)
[2017-04-05] MEDS ORDERED: MORPHINE 2 MG/1 ML SYRINGE IV PRN (02:45)
[2017-04-05] MEDS ORDERED: MAGNESIUM SULF RIDER 2 GM in PREMIX 1 EACH IV PRN (02:45)
[2017-04-05] MEDS ORDERED: ALBUTEROL 2.5 MG/3 ML NEB RESP TX PRN (02:45)
[2017-04-05 02:58] LABS: Albumin 2.5 G/DL (3.4-5.0); Bilirubin,Total 0.4 MG/DL (0.2-1.0); Calcium 7.6 MG/DL (8.5-10.1); Magnesium 2.3 MG/DL (1.8-2.4); Osmolality,Calculated 290.7 MOS/KG (273-304); Total Protein 6.6 G/DL (6.4-8.3)
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
[2017-04-05] MEDS ORDERED: cefTRIAXone 1,000 MG VIAL ONE (03:46)
[2017-04-05] MEDS: PANTOPRAZOLE 40 MG VIAL IV SCH (04:20)
[2017-04-05] MEDS: ENOXAPARIN 30 MG/0.3 ML SYRINGE SUBCUT SCH (04:30)
[2017-04-05] MEDS ORDERED: INSULIN REGULAR 100 UNIT/ML IV ONE (05:00)
[2017-04-05] MEDS ORDERED: SODIUM BICARBONATE 50 MEQ/50 ML SYRINGE IV ONE (05:00)
[2017-04-05] MEDS ORDERED: CALCIUM GLUCONATE 1,000 MG in SODIUM CHLORIDE 0.9% 100 ML IV ONE (05:00)
[2017-04-05] MEDS ORDERED: DEXTROSE 50% 25 GM/50 ML VIAL IV ONE (05:00)
[2017-04-05] MEDS ORDERED: AZITHROMYCIN INJ 500 MG in SODIUM CHLORIDE 0.9% 250 ML IV SCH (06:00)
[2017-04-05 06:05] LABS: ABG Base Excess 1.7 MMOL/L (-2.5-2.5); ABG HCO3 25.1 MMOL/L (20-26); ABG Oxygen Saturation 98.4 % (95-100); ABG PCO2 34.8 MM HG (35-48); ABG PH 7.476 (7.35-7.45); ABG PO2 133.4 MM HG (80-95); ABG TCO2 26.2 MMOL/L (23-27); Allen Test Positive; Pt O2 Delivery Device Ventilator
[2017-04-05] MEDS: INSULIN REGULAR 100 UNIT/ML SUBCUT SCH ×3 (06:26→18:25)
--- NOTE | 2017-04-05 06:38 | XRay Report ---
History: Endotracheal tube placement Date: 04/05/2017 Study: Chest x-ray AP portable Comparison exam: March 26, 2017 The endotracheal tube is well-positioned at the level of the distal trachea. There is cardiomegaly. The pulmonary vasculature is engorged. There is patchy and hazy airspace disease in the perihilar regions and lung bases, right slightly more prominent than left. There is mild bilateral pleural effusion. Osseous structures are unchanged. Impression: The endotracheal tube tip is well-positioned superior to the [place] Cardiomegaly and evidence of CHF with pulmonary edema and mild bilateral pleural effusion. Superimposed pneumonia in the right perihilar region cannot be excluded PROCEDURE INTERPRETED AT [facility] [place] DEPARTMENT OF RADIOLOGY Final Report Signed by: Dr. Anna Isaacs
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
[2017-04-05] MEDS ORDERED: FUROSEMIDE 40 MG/4 ML VIAL IV SCH (08:00)
--- NOTE | 2017-04-05 08:51 | Cardiology Consult Note ---
<SeguraJayceSamina E - Last Filed: 04/05/17 08:54> Assessment and Plan - Time spent with patient Time spent with patient: Greater than 30 minutes (due to assessment, plan, and documentation) (1) Respiratory failure Status: Acute Assessment and plan: See plan of care listed below. Current Visit: Yes (2) Congestive heart failure Status: Acute Assessment and plan: See plan of care listed below. Current Visit: No Qualifiers: Congestive heart failure type: combined Congestive heart failure chronicity : acute on chronic Qualified Code(s): I50.43 - Acute on chronic combined systolic (congestive) and diastolic (congestive) heart failure (3) Coronary artery disease Status: Chronic Assessment and plan: See plan of care listed below. Current Visit: No Qualifiers: Coronary Disease-Associated Artery/Lesion type: [place] artery [place] vs. transplanted heart: [place] heart Associated angina: without angina Qualified Code(s): I25.10 - Atherosclerotic heart disease of [place] coronary artery without angina pectoris (4) Aortic insufficiency Status: Chronic Assessment and plan: See plan of care listed below. Current Visit: No Qualifiers: Cardiac valve disease etiology: nonrheumatic Qualified Code(s): I35.1 - Nonrheumatic aortic (valve) insufficiency (5) Essential hypertension Status: Chronic Assessment and plan: See plan of care listed below. Current Visit: Yes (6) Hyperlipidemia Status: Chronic Assessment and plan: See plan of care listed below. Current Visit: No Qualifiers: Hyperlipidemia type: pure hypercholesterolemia Qualified Code(s): E78.00 - Pure hypercholesterolemia, unspecified; E78.0 - Pure hypercholesterolemia (7) Chronic kidney disease (CKD) Status: Chronic Assessment and plan: See plan of care listed below. Current Visit: Yes Qualifiers: Chronic kidney disease stage: stage 4 (severe) Qualified Code(s): N18.4 - Chronic kidney disease, stage 4 (severe) (8) Diabetes mellitus Status: Chronic Assessment and plan: See plan of care listed below. Current Visit: Yes (9) Anemia Status: Chronic Assessment and plan: See plan of care listed below. Current Visit: Yes (10) Mitral regurgitation Status: Chronic Assessment and plan: See plan of care listed below. Current Visit: No Qualifiers: Cardiac valve disease etiology: nonrheumatic Qualified Code(s): I34.0 - Nonrheumatic mitral (valve) insufficiency History of Present Illness - Data of Consult Patient: known to practice within the last 3 years Consult date: 04/05/17 Requesting Physician: German Aldana - Consult Narrative Reason for consult: chest pain, elevated troponin History of present illness: GLASS BREAKER: DR. CRUZ Ms. Moscoso is seen in the CCU sedated and intubated on the ventilator. There is no family present at this time. Much of the history comes from her records. Ms. Moscoso is a 76 year old female with a history of coronary artery disease, aortic insufficiency, mitral regurgitation, congestive heart failure, diabetes, hyperlipidemia, and hypertension. She is status post non-STEMI with three-vessel CAD (occluded ostial RCA, 70% calcific proximal LAD , 90% proximal circumflex) per left heart catheterization on 03/20/17. She has calcific mitral and aortic valve disease; she appears to have approximately 3+ and AR, but also has reduced leaflet motion of her mitral valve and elevated transvalvular gradient (10/25 median peak). Echocardiogram on 03/17/17 revealed depressed EF of 30%, mild LVH, grade 3 diastolic dysfunction. I saw the patient during her most recent admission and per prior discussions, it should be noted that Ms. Moscoso is a [employer] and is unwilling to take someone else's blood in transfusion. This certainly complicates the possibility of major CV Surgery. She is willing to consider taking a transfusion from her self at a later time. Ms. Moscoso presented to the emergency room after complaining to her that her heart was hurting. She also complained of some shortness of breath. Upon arrival, her oxygen saturations were low, she was struggling for breath, and she was promptly intubated in the emergency room. She was just discharged from the hospital 3 days ago after being treated for approximately 2 weeks for CHF and N-STEMI. Upon admission, she was noted to have an elevated white blood cell count, potassium 6.0, creatinine 1.9, troponin 0.467. Her BNP was 1489. Her troponins are slightly more elevated than they were when she was discharged from the hospital they are still decreased from when she suffered her N-STEMI. She does have some changes in her septal leads. Will repeat EKG this morning. Assessment/plan: 1. Respiratory failure -patient is sedated on mechanical ventilation. Pulmonology has been consulted for ventilator management. 2. Congestive heart failure -patient has been readmitted after being discharged 3 days ago with recurrent heart failure. IV Lasix has been started. 3. Coronary artery disease -continue aspirin, beta-hector, statin. Will avoid NO or ARB due to renal insufficiency. We will continue to cycle cardiac biomarkers and EKGs and follow trend. 4. Aortic insufficiency -per BISHNU on 03/31/17, there is moderate to severe aortic stenosis and at least mild insufficiency. Will continue offloading as tolerated. Will continue medical management at this point. 5. Hypertension -currently well controlled. We will continue to monitor and adjust accordingly. 6. Hyperlipidemia -continue lipid-lowering agent. 7. Acute on chronic renal failure -creatinine is around her baseline at 1.9. We will avoid any nephrotoxic agents. 8. Diabetes -she has been started on Accu-Cheks and sliding scale insulin. 9. Anemia -H&H is actually significantly improved from discharge from 2016. On admission was 11.0 and 34.1. We will continue to monitor. 10. Mitral regurgitation -per BISHNU on 03/31/17, there is moderate to severe mitral stenosis and at least moderate regurgitation. At this point, will further discuss treatment options with Dr. Noble and await his recommendations. CC: Aurelia Brizuela MD - Home Medications and Allergies Home Medications: Home Medications Medication Instructions Recorded Confirmed Type Clotrimazole/Betamethasone Dip 1 applic TOP BID 03/17/17 04/05/17 History [Clotrimazole/Betamethasone Cream] Ergocalciferol (Vitamin D2) 50,000 unit PO Q7D 03/17/17 04/05/17 History [Vitamin D2] Multivitamin (Centrum) [Centrum 1 tablet PO DAILY 03/17/17 04/05/17 History Tab] Nitroglycerin Sl Tab [Nitrostat] 0.4 mg SL Q5M PRN 03/17/17 04/05/17 History Ofloxacin 0.3% Oph Soln [Ocuflox 1 drop LEFT EYE QID 03/17/17 04/05/17 History 0.3% Oph Soln] Polyvinyl Alcohol [Artificial 15 ml BOTH EYES QID 03/17/17 04/05/17 History Tears] Propylene Glycol/Peg 400 [Systane 1 drop BOTH EYES QID PRN 03/17/17 04/05/17 History Gel Drops] Aspirin EC Tab 81 mg PO DAILY tablet 04/01/17 04/05/17 Rx Atorvastatin [Lipitor] 80 mg PO BEDTIME #60 tablet 04/01/17 04/05/17 Rx Bisacodyl Tab [Dulcolax Tab] 10 mg PO DAILY PRN tablet 04/01/17 04/05/17 Rx Carvedilol [Coreg] 12.5 mg PO BID #120 tablet 04/01/17 04/05/17 Rx Cyclobenzaprine [Flexeril] 10 mg PO TID PRN #30 tablet 04/01/17 04/05/17 Rx Ferrous Sulfate ER Tab [Slow Fe] 140 mg PO TID #90 tablet 04/01/17 04/05/17 Rx Furosemide Tab [Lasix Tab] 40 mg PO DAILY #60 tablet 04/01/17 04/05/17 Rx Isosorbide Dinitrate [Isordil] 20 mg PO TID #90 tablet 04/01/17 04/05/17 Rx glipiZIDE [Glucotrol] 5 mg PO BIDAC #60 tablet 04/01/17 04/05/17 Rx hydrALAZINE TAB [Apresoline Tab] 25 mg PO TID #90 tablet 04/01/17 04/05/17 Rx sitaGLIPtin [Januvia] 50 mg PO BEDTIME #30 tablet 04/01/17 04/05/17 Rx Allergies/Adverse Reactions: Allergies Allergy/AdvReac Type Severity Reaction Status Date / Time No Known Allergies Allergy Unverified 03/17/17 14:59 ROS unobtainable: due to endotracheal tube Medical,Surgical,& Family Hx - Medical History Cardio: History of: CHF, CAD (PCI 10/19/2011), Hypertension, NC, PVD (Peripheral Stent x2.) No history of: Pacemaker Neurology: No history of: Cerebrovascular Accident Endocrine: History of: Diabetes Mellitus (NIDDM) Respiratory: No history of: Asthma, COPD, Pulmonary Embolism Gastrointestinal: No history of: GERD Musculoskeletal: History of: Back/Neck Problems (1971) Other: No history of: Cancer - Surgical History Cardiac Surgeries: Sugical HX of: Cardiac Catheterization HEENT Surgeries: Patient denies: Tonsilectomy & Adenoidectomy Abdominal Surgeries: Patient denies: Abdominal Surgery Reproductive Surgeries: Surgical HX of;: Hysterectomy Orthopedic Surgeries: Patient denies;: Orthopedic Surgery - Family History Family History: Reports;: Family Cancer (Brother (leukemia)), Family Heart Disease, Family Hypertension, Family Stroke - Social History Smoking Status: Never smoker Frequency of Alcohol Use: None Type of Drug Use: None Marital Status: Lives With:: Spouse Functional capacity: uses cane/walker Physical Examination Vital Signs Temp Pulse Resp BP Pulse Ox 97.7 F 87 24 153/74 85 L 04/05/17 01:05 04/05/17 01:05 04/05/17 01:05 04/05/17 01:05 04/05/17 01:05 Other: General appearance: Orally intubated and sedated on ventilator. Normal weight, no acute distress. - Head Head exam: Present: normal inspection, normocephalic, atraumatic. Absent: hematoma, laceration - Eye Eye exam: Present: EOMI. Absent: conjunctival injection, nystagmus, periorbital swelling, scleral icterus, laceration to eyelids Pupils: Present: PERRL. Absent: constricted, dilated, fixed, irregular, unequal - ENT ENT exam: Present: Orally intubated, normal external ear exam - Neck Neck exam: Present: normal inspection. Absent: lymphadenopathy, meningismus, tenderness, thyromegaly - Respiratory Respiratory exam: Present: Mechanically ventilated breath sounds. Absent: accessory muscle use - Cardiovascular Cardiovascular exam: Present: regular rate and rhythm, systolic murmur (3/6 at second intercostal space). Absent: diastolic murmur, rubs - GI/Abdominal GI/Abdominal exam: Present: normal bowel sounds, soft. Absent: distended, firm , guarding, hernia, mass, tenderness, rebound. - Extremities Exam Extremities exam: Present: normal inspection, normal capillary refill. Upper extremity pulses 2+. Lower extremity pulses 2+. 2+ pitting edema to BLE. Absent : calf tenderness - Back Exam Back exam: Present: Unable to examine due to habitus. Sedated on mechanical ventilator. - Neurological Exam Neurological exam: Present: Limited due to habitus (on ventilator). Arousable to verbal stimuli. Follows commands appropriately. No resting or essential tremor. - Psychiatric Psychiatric exam: Present: Unable to adequately assess due to patient being sedated and on mechanical ventilation. - Skin Skin exam: Present: normal color, warm, dry, intact. Absent: cyanosis, diaphoretic, rash, urticaria Result/EKG - Labs CBC & BMP: 04/05/17 01:39 04/05/17 01:39 Lab Results: I have reviewed the past 24 hour labs Labs: Laboratory Results - last 24 hr 04/05/17 04/05/17 04/05/17 01:39 01:39 01:39 WBC 24.3 H D RBC 3.87 Hgb 11.0 L Hct 34.1 L MCV 88.1 MCH 28 MCHC 32.3 RDW 13.8 Plt Count 535 H D MPV 9.0 L Neut % (Auto) 88.4 H Lymph % (Auto) 5.9 L [place] % (Auto) 4.2 Eos % (Auto) 0.7 Baso % (Auto) 0.1 Neut # (Auto) 21.5 H Lymph # (Auto) 1.4 [place] # (Auto) 1.0 H Eos # (Auto) 0.2 Baso # (Auto) 0.0 Immature Gran % 0.7 Nucleated RBC % 0.1 Immature Gran # 0.17 Nucleated RBCs # 0.02 INR 1.1 PT Patient/Control Mix 11.4 ABG pH ABG pCO2 ABG pO2 ABG HCO3 ABG Total CO2 ABG O2 Saturation ABG Base Excess FiO2 Sodium Potassium Chloride Carbon Dioxide Anion Gap BUN Creatinine GFR Calculation BUN/Creatinine Ratio Glucose POC Glucose Calculated Osmolality Calcium Magnesium Total Bilirubin AST ALT Alkaline Phosphatase Troponin I 0.467 H B-Natriuretic Peptide Total Protein Albumin Globulin Albumin/Globulin Ratio Lipase Urine Color Urine Appearance Urine pH Ur Specific [place] Urine Protein Urine Glucose (UA) Urine Ketones Urine Blood Urine Nitrate Urine Bilirubin Urine Urobilinogen Urine Leukocytes Urine RBC Urine WBC Ur Squamous Epith Cells Amorphous Crystals Urine Bacteria Hyaline Casts Ur Culture Indicated? 04/05/17 04/05/17 04/05/17 01:39 01:39 01:45 WBC RBC Hgb Hct MCV MCH MCHC RDW Plt Count MPV Neut % (Auto) Lymph % (Auto) [place] % (Auto) Eos % (Auto) Baso % (Auto) Neut # (Auto) Lymph # (Auto) [place] # (Auto) Eos # (Auto) Baso # (Auto) Immature Gran % Nucleated RBC % Immature Gran # Nucleated RBCs # INR PT Patient/Control Mix ABG pH 7.291 L ABG pCO2 46.4 ABG pO2 307.0 H ABG HCO3 20.8 ABG Total CO2 20.4 L ABG O2 Saturation 99.8 ABG Base Excess -4.3 L FiO2 100.00 Sodium 138 Potassium 6.0 H* Chloride 103 Carbon Dioxide 23 Anion Gap 18.0 H BUN 39 H Creatinine 1.90 H GFR Calculation 24 BUN/Creatinine Ratio 20.00 Glucose 221 H POC Glucose Calculated Osmolality 290.7 Calcium 7.6 L Magnesium 2.3 Total Bilirubin 0.40 AST 116 H ALT 70 H Alkaline Phosphatase 253 H Troponin I B-Natriuretic Peptide 1489 H Total Protein 6.6 Albumin 2.5 L Globulin 4.1 H Albumin/Globulin Ratio 0.6 L Lipase 269.0 Urine Color Urine Appearance Urine pH Ur Specific [place] Urine Protein Urine Glucose (UA) Urine Ketones Urine Blood Urine Nitrate Urine Bilirubin Urine Urobilinogen Urine Leukocytes Urine RBC Urine WBC Ur Squamous Epith Cells Amorphous Crystals Urine Bacteria Hyaline Casts Ur Culture Indicated? 04/05/17 04/05/17 04/05/17 02:10 06:00 06:04 WBC RBC Hgb Hct MCV MCH MCHC RDW Plt Count MPV Neut % (Auto) Lymph % (Auto) [place] % (Auto) Eos % (Auto) Baso % (Auto) Neut # (Auto) Lymph # (Auto) [place] # (Auto) Eos # (Auto) Baso # (Auto) Immature Gran % Nucleated RBC % Immature Gran # Nucleated RBCs # INR PT Patient/Control Mix ABG pH 7.476 H ABG pCO2 34.8 L ABG pO2 133.4 H ABG HCO3 25.1 ABG Total CO2 26.2 ABG O2 Saturation 98.4 ABG Base Excess 1.7 FiO2 50.00 Sodium Potassium Chloride Carbon Dioxide Anion Gap BUN Creatinine GFR Calculation BUN/Creatinine Ratio Glucose POC Glucose 176 H Calculated Osmolality Calcium Magnesium Total Bilirubin AST ALT Alkaline Phosphatase Troponin I B-Natriuretic Peptide Total Protein Albumin Globulin Albumin/Globulin Ratio Lipase Urine Color Yellow Urine Appearance Cloudy Urine pH 5.0 Ur Specific [place] 1.011 Urine Protein 100 Urine Glucose (UA) Negative Urine Ketones Negative Urine Blood Negative Urine Nitrate Negative Urine Bilirubin Negative Urine Urobilinogen < 2.0 H Urine Leukocytes Negative Urine RBC 2 Urine WBC 2 Ur Squamous Epith Cells Occasional Amorphous Crystals Occasional Urine Bacteria Few Hyaline Casts 1 Ur Culture Indicated? Not indicated 04/05/17 06:25 WBC RBC Hgb Hct MCV MCH MCHC RDW Plt Count MPV Neut % (Auto) Lymph % (Auto) [place] % (Auto) Eos % (Auto) Baso % (Auto) Neut # (Auto) Lymph # (Auto) [place] # (Auto) Eos # (Auto) Baso # (Auto) Immature Gran % Nucleated RBC % Immature Gran # Nucleated RBCs # INR PT Patient/Control Mix ABG pH ABG pCO2 ABG pO2 ABG HCO3 ABG Total CO2 ABG O2 Saturation ABG Base Excess FiO2 Sodium Potassium Chloride Carbon Dioxide Anion Gap BUN Creatinine GFR Calculation BUN/Creatinine Ratio Glucose POC Glucose Calculated Osmolality Calcium Magnesium Total Bilirubin AST ALT Alkaline Phosphatase Troponin I 0.449 H B-Natriuretic Peptide Total Protein Albumin Globulin Albumin/Globulin Ratio Lipase Urine Color Urine Appearance Urine pH Ur Specific [place] Urine Protein Urine Glucose (UA) Urine Ketones Urine Blood Urine Nitrate Urine Bilirubin Urine Urobilinogen Urine Leukocytes Urine RBC Urine WBC Ur Squamous Epith Cells Amorphous Crystals Urine Bacteria Hyaline Casts Ur Culture Indicated? - EKG EKG results: interpreted by me, sinus rhythm (with right bundle branch block and ST-T abnormality) <Chrissy Noble - Last Filed: 04/06/17 06:16> History of Present Illness - Consult Narrative History of present illness: Ms. Moscoso is a 76 year old female whom I saw yesterday with Ms. Segura. I have no documented at that time as well there is difficulty in problems with the computer allowing me to access Ms. Segura's note. Apparently the most note has been modified or adjusted by the IT department so that now I can enter the note. Please see my note corresponding with the same to date and roughly the same time on 04/05/2017. This patient has coronary artery disease and double valve disease now with respiratory failure. I saw and examined yesterday with Ms. Segura. I later came back in the day and had a long discussion with the patient's of 50 years about our approach. I have asked cardiothoracic surgery to see they feel that she is prohibitive surgical risk and I discussed this with patient. I will transmit the patient's imaging and have done so at this time to Dr. Giovani Monroe [facility] in [place] they will help us with approach to the patient's cardiac condition that will mitigate complications and maximize her opportunity to survive. Her echocardiogram yesterday actually looked to have a better ejection fraction her valve disease did not seem as severe as previously documented I wait the expert opinion of Dr. Monroe and Dr. Low. CC: Aurelia Brizuela MD Physical Examination Vital Signs Temp Pulse Resp BP Pulse Ox 97.7 F 87 24 153/74 85 L 04/05/17 01:05 04/05/17 01:05 04/05/17 01:05 04/05/17 01:05 04/05/17 01:05 Result/EKG - Labs CBC & BMP: 04/06/17 03:47 04/06/17 03:47 Labs: Laboratory Results - last 24 hr 04/05/17 04/05/17 04/05/17 06:04 06:25 09:41 WBC RBC Hgb Hct MCV MCH MCHC RDW Plt Count MPV Neut % (Auto) Lymph % (Auto) [place] % (Auto) Eos % (Auto) Baso % (Auto) Neut # (Auto) Lymph # (Auto) [place] # (Auto) Eos # (Auto) Baso # (Auto) Immature Gran % Nucleated RBC % Immature Gran # Nucleated RBCs # ABG pH ABG pCO2 ABG pO2 ABG HCO3 ABG Total CO2 ABG O2 Saturation ABG Base Excess FiO2 Sodium Potassium Chloride Carbon Dioxide Anion Gap BUN Creatinine GFR Calculation BUN/Creatinine Ratio Glucose POC Glucose 176 H Hemoglobin A1c Calculated Osmolality Calcium Phosphorus Magnesium Total Bilirubin AST ALT Alkaline Phosphatase Total Creatine Kinase 69 D CK-MB (CK-2) 2.0 Troponin I 0.449 H 0.401 H Total Protein Albumin Globulin Albumin/Globulin Ratio Prealbumin Hepatitis A IgM Ab Hep Bs Antigen Hep B Core IgM Ab Hepatitis C Antibody 04/05/17 04/05/17 04/05/17 09:48 09:48 11:33 WBC RBC Hgb Hct MCV MCH MCHC RDW Plt Count MPV Neut % (Auto) Lymph % (Auto) [place] % (Auto) Eos % (Auto) Baso % (Auto) Neut # (Auto) Lymph # (Auto) [place] # (Auto) Eos # (Auto) Baso # (Auto) Immature Gran % Nucleated RBC % Immature Gran # Nucleated RBCs # ABG pH ABG pCO2 ABG pO2 ABG HCO3 ABG Total CO2 ABG O2 Saturation ABG Base Excess FiO2 Sodium 139 Potassium 4.8 Chloride 104 Carbon Dioxide 26 Anion Gap 13.8 BUN 42 H Creatinine 1.80 H GFR Calculation 26 BUN/Creatinine Ratio 23.00 H Glucose 101 POC Glucose 70 L Hemoglobin A1c Calculated Osmolality 287.5 Calcium 8.5 Phosphorus Magnesium Total Bilirubin < 0.39 AST 67 H ALT 62 H Alkaline Phosphatase 209 H Total Creatine Kinase CK-MB (CK-2) Troponin I 0.402 H Total Protein 5.9 L Albumin 2.2 L Globulin 3.7 H Albumin/Globulin Ratio 0.5 L Prealbumin Hepatitis A IgM Ab Hep Bs Antigen Hep B Core IgM Ab Hepatitis C Antibody 04/05/17 04/05/17 04/05/17 17:06 17:06 17:06 WBC RBC Hgb Hct MCV MCH MCHC RDW Plt Count MPV Neut % (Auto) Lymph % (Auto) [place] % (Auto) Eos % (Auto) Baso % (Auto) Neut # (Auto) Lymph # (Auto) [place] # (Auto) Eos # (Auto) Baso # (Auto) Immature Gran % Nucleated RBC % Immature Gran # Nucleated RBCs # ABG pH ABG pCO2 ABG pO2 ABG HCO3 ABG Total CO2 ABG O2 Saturation ABG Base Excess FiO2 Sodium Potassium Chloride Carbon Dioxide Anion Gap BUN Creatinine GFR Calculation BUN/Creatinine Ratio Glucose POC Glucose Hemoglobin A1c 7.9 H Calculated Osmolality Calcium Phosphorus Magnesium Total Bilirubin AST ALT Alkaline Phosphatase Total Creatine Kinase 66 CK-MB (CK-2) 1.8 Troponin I 0.378 H Total Protein Albumin Globulin Albumin/Globulin Ratio Prealbumin Hepatitis A IgM Ab Negative Hep Bs Antigen Negative Hep B Core IgM Ab Negative Hepatitis C Antibody Negative 04/05/17 04/06/17 04/06/17 17:44 00:25 03:30 WBC RBC Hgb Hct MCV MCH MCHC RDW Plt Count MPV Neut % (Auto) Lymph % (Auto) [place] % (Auto) Eos % (Auto) Baso % (Auto) Neut # (Auto) Lymph # (Auto) [place] # (Auto) Eos # (Auto) Baso # (Auto) Immature Gran % Nucleated RBC % Immature Gran # Nucleated RBCs # ABG pH 7.533 H ABG pCO2 29.9 L ABG pO2 188.9 H ABG HCO3 24.6 ABG Total CO2 25.5 ABG O2 Saturation 99.5 ABG Base Excess 2.9 H FiO2 45.00 Sodium Potassium Chloride Carbon Dioxide Anion Gap BUN Creatinine GFR Calculation BUN/Creatinine Ratio Glucose POC Glucose 81 157 H Hemoglobin A1c Calculated Osmolality Calcium Phosphorus Magnesium Total Bilirubin AST ALT Alkaline Phosphatase Total Creatine Kinase CK-MB (CK-2) Troponin I Total Protein Albumin Globulin Albumin/Globulin Ratio Prealbumin Hepatitis A IgM Ab Hep Bs Antigen Hep B Core IgM Ab Hepatitis C Antibody 04/06/17 04/06/17 04/06/17 03:47 03:47 03:47 WBC 13.1 H D RBC 3.09 L D Hgb 8.8 L D Hct 26.4 L MCV 85.4 L MCH 29 MCHC 33.3 RDW 14.0 Plt Count 389 D MPV 9.3 L Neut % (Auto) 77.2 H Lymph % (Auto) 12.3 L [place] % (Auto) 8.7 Eos % (Auto) 1.1 Baso % (Auto) 0.1 Neut # (Auto) 10.1 H Lymph # (Auto) 1.6 [place] # (Auto) 1.1 H Eos # (Auto) 0.1 Baso # (Auto) 0.0 Immature Gran % 0.6 Nucleated RBC % 0.0 Immature Gran # 0.08 Nucleated RBCs # 0.00 ABG pH ABG pCO2 ABG pO2 ABG HCO3 ABG Total CO2 ABG O2 Saturation ABG Base Excess FiO2 Sodium 142 Potassium 4.2 Chloride 105 Carbon Dioxide 29 Anion Gap 12.2 BUN 39 H Creatinine 1.70 H GFR Calculation 28 BUN/Creatinine Ratio 22.00 H Glucose 131 H POC Glucose Hemoglobin A1c Calculated Osmolality 293.1 Calcium 8.1 L Phosphorus 3.2 Magnesium 2.0 Total Bilirubin 0.50 AST 28 ALT 40 Alkaline Phosphatase 172 H Total Creatine Kinase CK-MB (CK-2) Troponin I Total Protein 5.1 L Albumin 1.9 L Globulin 3.2 Albumin/Globulin Ratio 0.5 L Prealbumin 11.8 L Hepatitis A IgM Ab Hep Bs Antigen Hep B Core IgM Ab Hepatitis C Antibody 04/06/17 04/06/17 03:47 05:34 WBC RBC Hgb Hct MCV MCH MCHC RDW Plt Count MPV Neut % (Auto) Lymph % (Auto) [place] % (Auto) Eos % (Auto) Baso % (Auto) Neut # (Auto) Lymph # (Auto) [place] # (Auto) Eos # (Auto) Baso # (Auto) Immature Gran % Nucleated RBC % Immature Gran # Nucleated RBCs # ABG pH ABG pCO2 ABG pO2 ABG HCO3 ABG Total CO2 ABG O2 Saturation ABG Base Excess FiO2 Sodium 141 Potassium 4.2 Chloride 105 Carbon Dioxide 30 Anion Gap 10.2 BUN 37 H Creatinine 1.70 H GFR Calculation 28 BUN/Creatinine Ratio 21.00 H Glucose 126 H POC Glucose 126 H Hemoglobin A1c Calculated Osmolality 291.3 Calcium 8.2 L Phosphorus Magnesium 2.1 Total Bilirubin AST ALT Alkaline Phosphatase Total Creatine Kinase CK-MB (CK-2) Troponin I Total Protein Albumin Globulin Albumin/Globulin Ratio Prealbumin Hepatitis A IgM Ab Hep Bs Antigen Hep B Core IgM Ab Hepatitis C Antibody
--- NOTE | 2017-04-05 08:51 | EKG Report ---
Stationary ECG Study [facility] Test Date: 04/05/2017 1:14 AM Pat Name: THADDEUS AN Department: Room: 124 Gender: F Manager Molecular: : 1940 Requested by: Abhilash Fitch Order Number: [id number] Reading MD: BRADY DIAZ Intervals [place] Rate: 92 P: -11 PA: 186 QRS: 139 QRSD: 156 T: -30 QT: 395 QTc: 445 Interpretive Statements SINUS RHYTHM MARKED RIGHT AXIS DEVIATION RIGHT BUNDLE BRANCH BLOCK POSSIBLE SEPTAL MYOCARDIAL INFARCTION, OF INDETERMINATE AGE Electronically Signed On 04-06-17 07:59:10 CDT by BRADY DIAZ [email or web address]
[2017-04-05] MEDS ORDERED: ENOXAPARIN 30 MG/0.3 ML SYRINGE SUBCUT SCH (09:00)
[2017-04-05] MEDS: CLOTRIMAZOLE/BETAMETHASONE CREAM 15 GM TUBE TOP SCH ×3 (09:26→22:05)
[2017-04-05] MEDS: POLYVINYL ALCOHOL 1.4% OPH SOLN 15 ML BOTTLE BOTH EYES SCH ×4 (09:26→20:50)
[2017-04-05] MEDS: OFLOXACIN 0.3% OPH SOLN 10 ML BOTTLE LEFT EYE SCH ×4 (09:26→20:52)
[2017-04-05] MEDS: ASPIRIN EC 81 MG TABLET PO SCH (09:27)
[2017-04-05] MEDS: CARVEDILOL 12.5 MG TABLET PO SCH ×2 (09:27→20:51)
[2017-04-05] MEDS: PIPERACILLIN/TAZOBACTAM 3,375 MG in SODIUM CHLORIDE 0.9% 100 ML IV SCH ×2 (09:27→16:57)
--- NOTE | 2017-04-05 10:08 | Event Note ---
I spent a significant amount of time reviewing the patient's chart and reviewing the patient's data including transthoracic echoes transesophageal echoes and cath films. Also have seen and examined the patient. I tried to edit the note input by Ms. Segura however due to reasons out of my control this note is cannot be edited due to "updates are incomplete." I will repeat the patient's transthoracic echo. There is been lack of clarity in the severity of her /AI or MS MR. I will repeat a transthoracic echo today. This patient clearly has failed conservative medical therapy and it is time for mechanical intervention if she is to survive. She has two-vessel coronary disease and two- vessel valve disease. She is Sabianist mildly anemic with chronic renal insufficiency which puts her in a very significant surgical risk. She is currently on the ventilator and I cannot discuss with her I will discuss with her family wants to have all the information. I will also will talk to the cardiothoracic surgeon surety bond agent.
--- NOTE | 2017-04-05 10:19 | EKG Report ---
Stationary ECG Study [facility] Test Date: 04/05/2017 10:19 AM Pat Name: THADDEUS AN Department: Room: 124 Gender: F Adult Services Librarian: TARAH : 1940 Requested by: Samina Segura Order Number: [id number] Reading MD: BRADY DIAZ Intervals [place] Rate: 86 P: 104 ND: 241 QRS: 87 QRSD: 109 T: 217 QT: 442 QTc: 485 Interpretive Statements SINUS RHYTHM WITH PROLONGED ND INTERVAL POSSIBLE ANTERIOR MYOCARDIAL INFARCTION, POSSIBLY RECENT ACUTE AK Electronically Signed On 04-06-17 08:12:50 CDT by BRADY DIAZ [email or web address]
[2017-04-05 10:26] LABS: Alanine Aminotransferase 62 U/L (13-56); Albumin 2.2 G/DL (3.4-5.0); Alkaline Phosphatase 209 U/L (45-117); Aspartate Amino Transferase 67 U/L (0-37); Bilirubin,Total < 0.39 MG/DL (0.2-1.0); Blood Urea Nitrogen 42 MG/DL (7-18); Calcium 8.5 MG/DL (8.5-10.1); Glucose 101 MG/DL (74-106); Osmolality,Calculated 287.5 MOS/KG (273-304); Potassium 4.8 MMOL/L (3.5-5.1); Sodium 139 MMOL/L (136-145); Total Protein 5.9 G/DL (6.4-8.3)
[2017-04-05 11:30] LABS: Troponin I Only 0.401 NG/ML (0.00-0.045)
--- NOTE | 2017-04-05 12:26 | ECHO Report ---
Brianna Moscoso 04/05/2017 Exam Date: 10:37 Referring Physician: Azeb Dasilva Technologist: TEAGAN Age: 76 Ht (in): 62 Wt (lb): 148 FExam [facility] Gender: Echo [id number]: MR, Anemia, CKD, hyperlipidemia, ResIndications:p. failure, CHF, CAD, AI, HTN BP: 91 / 47 HR: 84 SinusRhythm: averageTechnical Quality: IMPRESSIONS The overall ejection fraction is approximately 40- 45%. There is mild concentric left ventricular hypertrophy. There is hypokinesis in the inferior and inferolateral ventricular myocardium relative to the remainder the ventricular myocardium. Moderate aortic stenosis and insufficiency Mild mitral stenosis and insufficiency Normal estimated right sided pressure MEASUREMENTS (Male / Female) Normal Values 2D ECHO LV Diastolic Diameter PLAX 4.6 cm 4.2 - 5.9 / 3.9 - 5.3 cm LV Systolic Diameter PLAX 3.9 cm LV Fractional Shortening PLAX 14.7 % IVS Diastolic Thickness 1.2 cm 0.6 - 1.0 / 0.6 - 0.9 cm LVPW Diastolic Thickness 1.1 cm 0.6 - 1.0 / 0.6 - 0.9 cm RV Internal Dim ED PLAX 2.8 cm Aortic Root Diameter 2.8 cm LA Systolic Diameter LX 4.3 cm 3.0 - 4.0 / 2.7 - 3.8 cm DOPPLER Mitral E to A Ratio 0.8 TR Peak Velocity 235.0 cm/s TR Peak Gradient 22.1 mmHg FINDINGS Left Ventricle The overall ejection fraction is approximately 40- 45%. There is mild concentric left ventricular hypertrophy. There is hypokinesis in the inferior and inferolateral ventricular myocardium relative to the remainder the ventricular myocardium. Right Ventricle Normal right ventricular size. Right Atrium Normal right atrial size. Left Atrium Moderately increased left atrial diameter. Mitral Valve There is severe mitral annular calcification. There is calcification of both the anterior and posterior mitral leaflets that is grade 4. There is no demonstrable subvalvular thickening on his transthoracic echo. The mobility is markedly depressed approximately grade 3 of the mitral valve leaflets and the leaflets are also thickened. This gives an echo mitral score for valvuloplasty of 11. The pressure half-time measured on this limited study is 83 ms which utilizing calculations gives a estimated mitral valve area of 2.65 cm. Utilizing the VTI of 32.0 and LVOT VTI of 4 2.3 the mitral valve area is estimated to be 2.37 cm. On this study there appears to be only mild mitral regurgitation. Aortic Valve The aortic valve is moderately calcified and has decreased excursion. The patient has a mildly depressed EF and the peak velocity across the valve is 3.30 m/s with a VTI of 81.5. The LVOT VTI is 32 with a maximum velocity 1.49 cm estimating peak gradient of 44 mmHg and a mean of 25. Pressure half-time of the aortic insufficiency jet is measured 3 they were 265, 293 and 451 ms. This is most consistent with moderate aortic insufficiency. Tricuspid Valve Morphologically normal tricuspid valve. Mild tricuspid valve regurgitation. Tricuspid regurgitation velocities suggest a RVSP of 22 mmHg plus the right atrial pressure. Pulmonic Valve Pulmonic valve not well visualized. Pericardium No pericardial effusion. Pleural effusion is present. Aorta Normal size aortic root and proximal ascending aorta. Chrissy Noble (Electronically Signed) 05 April 2017 Final Date: 12:25
--- NOTE | 2017-04-05 13:39 | Cardiothoracic Progress Note ---
Cardiothoracic Subjective Interval history: Patient is a 76-year-old lady with known aortic and mitral valvular disease and coronary artery disease. She has a combination of aortic stenosis and aortic insufficiency as well as mitral stenosis. She also has coronary disease. She was just recently in the hospital was congestive heart failure and had gone home only to be readmitted with pulmonary edema and congestive heart failure. She is currently on a ventilator because of her pulmonary edema. Apparently her only real hope for survival is correction of her aortic and mitral valve disease as well as her coronary disease. She is a Denominational. This combination of factors makes her a prohibitive surgical risk in my opinion. I think if these valves and coronary problems are to be addressed they are probably going to need to be addressed percutaneously. I understand that Dr. Falcon has spoken with people in [place] and there is a possibility that they may accept her for transcatheter approach. I think it is safe to say however that she is a prohibitive surgical risk. Exam (Progress Note) - Constitutional Vitals: Period Temp Pulse Resp BP Sys/Pina Pulse Ox Last 24 Hr 97.7 F-98.6 F 78-92 12-24 91-153/45-74 85-100 Result/EKG - Labs CBC & BMP: 04/05/17 01:39 04/05/17 09:48 Labs: Laboratory Results - last 24 hr 04/05/17 04/05/17 04/05/17 01:39 01:39 01:39 WBC 24.3 H D RBC 3.87 Hgb 11.0 L Hct 34.1 L MCV 88.1 MCH 28 MCHC 32.3 RDW 13.8 Plt Count 535 H D MPV 9.0 L Neut % (Auto) 88.4 H Lymph % (Auto) 5.9 L [place] % (Auto) 4.2 Eos % (Auto) 0.7 Baso % (Auto) 0.1 Neut # (Auto) 21.5 H Lymph # (Auto) 1.4 [place] # (Auto) 1.0 H Eos # (Auto) 0.2 Baso # (Auto) 0.0 Immature Gran % 0.7 Nucleated RBC % 0.1 Immature Gran # 0.17 Nucleated RBCs # 0.02 INR 1.1 PT Patient/Control Mix 11.4 ABG pH ABG pCO2 ABG pO2 ABG HCO3 ABG Total CO2 ABG O2 Saturation ABG Base Excess FiO2 Sodium Potassium Chloride Carbon Dioxide Anion Gap BUN Creatinine GFR Calculation BUN/Creatinine Ratio Glucose POC Glucose Calculated Osmolality Calcium Magnesium Total Bilirubin AST ALT Alkaline Phosphatase Total Creatine Kinase CK-MB (CK-2) Troponin I 0.467 H B-Natriuretic Peptide Total Protein Albumin Globulin Albumin/Globulin Ratio Lipase Urine Color Urine Appearance Urine pH Ur Specific [place] Urine Protein Urine Glucose (UA) Urine Ketones Urine Blood Urine Nitrate Urine Bilirubin Urine Urobilinogen Urine Leukocytes Urine RBC Urine WBC Ur Squamous Epith Cells Amorphous Crystals Urine Bacteria Hyaline Casts Ur Culture Indicated? 04/05/17 04/05/17 04/05/17 01:39 01:39 01:45 WBC RBC Hgb Hct MCV MCH MCHC RDW Plt Count MPV Neut % (Auto) Lymph % (Auto) [place] % (Auto) Eos % (Auto) Baso % (Auto) Neut # (Auto) Lymph # (Auto) [place] # (Auto) Eos # (Auto) Baso # (Auto) Immature Gran % Nucleated RBC % Immature Gran # Nucleated RBCs # INR PT Patient/Control Mix ABG pH 7.291 L ABG pCO2 46.4 ABG pO2 307.0 H ABG HCO3 20.8 ABG Total CO2 20.4 L ABG O2 Saturation 99.8 ABG Base Excess -4.3 L FiO2 100.00 Sodium 138 Potassium 6.0 H* Chloride 103 Carbon Dioxide 23 Anion Gap 18.0 H BUN 39 H Creatinine 1.90 H GFR Calculation 24 BUN/Creatinine Ratio 20.00 Glucose 221 H POC Glucose Calculated Osmolality 290.7 Calcium 7.6 L Magnesium 2.3 Total Bilirubin 0.40 AST 116 H ALT 70 H Alkaline Phosphatase 253 H Total Creatine Kinase CK-MB (CK-2) Troponin I B-Natriuretic Peptide 1489 H Total Protein 6.6 Albumin 2.5 L Globulin 4.1 H Albumin/Globulin Ratio 0.6 L Lipase 269.0 Urine Color Urine Appearance Urine pH Ur Specific [place] Urine Protein Urine Glucose (UA) Urine Ketones Urine Blood Urine Nitrate Urine Bilirubin Urine Urobilinogen Urine Leukocytes Urine RBC Urine WBC Ur Squamous Epith Cells Amorphous Crystals Urine Bacteria Hyaline Casts Ur Culture Indicated? 04/05/17 04/05/17 04/05/17 02:10 06:00 06:04 WBC RBC Hgb Hct MCV MCH MCHC RDW Plt Count MPV Neut % (Auto) Lymph % (Auto) [place] % (Auto) Eos % (Auto) Baso % (Auto) Neut # (Auto) Lymph # (Auto) [place] # (Auto) Eos # (Auto) Baso # (Auto) Immature Gran % Nucleated RBC % Immature Gran # Nucleated RBCs # INR PT Patient/Control Mix ABG pH 7.476 H ABG pCO2 34.8 L ABG pO2 133.4 H ABG HCO3 25.1 ABG Total CO2 26.2 ABG O2 Saturation 98.4 ABG Base Excess 1.7 FiO2 50.00 Sodium Potassium Chloride Carbon Dioxide Anion Gap BUN Creatinine GFR Calculation BUN/Creatinine Ratio Glucose POC Glucose 176 H Calculated Osmolality Calcium Magnesium Total Bilirubin AST ALT Alkaline Phosphatase Total Creatine Kinase CK-MB (CK-2) Troponin I B-Natriuretic Peptide Total Protein Albumin Globulin Albumin/Globulin Ratio Lipase Urine Color Yellow Urine Appearance Cloudy Urine pH 5.0 Ur Specific [place] 1.011 Urine Protein 100 Urine Glucose (UA) Negative Urine Ketones Negative Urine Blood Negative Urine Nitrate Negative Urine Bilirubin Negative Urine Urobilinogen < 2.0 H Urine Leukocytes Negative Urine RBC 2 Urine WBC 2 Ur Squamous Epith Cells Occasional Amorphous Crystals Occasional Urine Bacteria Few Hyaline Casts 1 Ur Culture Indicated? Not indicated 04/05/17 04/05/17 04/05/17 06:25 09:41 09:48 WBC RBC Hgb Hct MCV MCH MCHC RDW Plt Count MPV Neut % (Auto) Lymph % (Auto) [place] % (Auto) Eos % (Auto) Baso % (Auto) Neut # (Auto) Lymph # (Auto) [place] # (Auto) Eos # (Auto) Baso # (Auto) Immature Gran % Nucleated RBC % Immature Gran # Nucleated RBCs # INR PT Patient/Control Mix ABG pH ABG pCO2 ABG pO2 ABG HCO3 ABG Total CO2 ABG O2 Saturation ABG Base Excess FiO2 Sodium Potassium Chloride Carbon Dioxide Anion Gap BUN Creatinine GFR Calculation BUN/Creatinine Ratio Glucose POC Glucose Calculated Osmolality Calcium Magnesium Total Bilirubin AST ALT Alkaline Phosphatase Total Creatine Kinase 69 D CK-MB (CK-2) 2.0 Troponin I 0.449 H 0.401 H 0.402 H B-Natriuretic Peptide Total Protein Albumin Globulin Albumin/Globulin Ratio Lipase Urine Color Urine Appearance Urine pH Ur Specific [place] Urine Protein Urine Glucose (UA) Urine Ketones Urine Blood Urine Nitrate Urine Bilirubin Urine Urobilinogen Urine Leukocytes Urine RBC Urine WBC Ur Squamous Epith Cells Amorphous Crystals Urine Bacteria Hyaline Casts Ur Culture Indicated? 04/05/17 04/05/17 09:48 11:33 WBC RBC Hgb Hct MCV MCH MCHC RDW Plt Count MPV Neut % (Auto) Lymph % (Auto) [place] % (Auto) Eos % (Auto) Baso % (Auto) Neut # (Auto) Lymph # (Auto) [place] # (Auto) Eos # (Auto) Baso # (Auto) Immature Gran % Nucleated RBC % Immature Gran # Nucleated RBCs # INR PT Patient/Control Mix ABG pH ABG pCO2 ABG pO2 ABG HCO3 ABG Total CO2 ABG O2 Saturation ABG Base Excess FiO2 Sodium 139 Potassium 4.8 Chloride 104 Carbon Dioxide 26 Anion Gap 13.8 BUN 42 H Creatinine 1.80 H GFR Calculation 26 BUN/Creatinine Ratio 23.00 H Glucose 101 POC Glucose 70 L Calculated Osmolality 287.5 Calcium 8.5 Magnesium Total Bilirubin < 0.39 AST 67 H ALT 62 H Alkaline Phosphatase 209 H Total Creatine Kinase CK-MB (CK-2) Troponin I B-Natriuretic Peptide Total Protein 5.9 L Albumin 2.2 L Globulin 3.7 H Albumin/Globulin Ratio 0.5 L Lipase Urine Color Urine Appearance Urine pH Ur Specific [place] Urine Protein Urine Glucose (UA) Urine Ketones Urine Blood Urine Nitrate Urine Bilirubin Urine Urobilinogen Urine Leukocytes Urine RBC Urine WBC Ur Squamous Epith Cells Amorphous Crystals Urine Bacteria Hyaline Casts Ur Culture Indicated?
--- NOTE | 2017-04-05 14:15 | Hospitalist Progress Note ---
Assessment and Plan (1) Acute respiratory failure Status: Acute Assessment and plan: Multifactorial including congestive heart failure, mitral and aortic stenosis which is severe, possible aspiration pneumonia. Current Visit: Yes (2) Congestive heart failure Status: Acute Assessment and plan: Acute systolic congestive heart failure exacerbation continue IV Lasix 80 mg IV every 12, continue Coreg Current Visit: No Qualifiers: Congestive heart failure type: combined Congestive heart failure chronicity : acute on chronic Qualified Code(s): I50.43 - Acute on chronic combined systolic (congestive) and diastolic (congestive) heart failure (3) Essential hypertension Status: Chronic Assessment and plan: Controlled continue Coreg 12.5 mg p.o. twice daily Current Visit: Yes (4) Acute renal failure superimposed on chronic kidney disease Status: Resolved Assessment and plan: Hyperkalemia responded to treatment and her potassium is down to 4.8, continue diuresis with IV Lasix. Current Visit: No Qualifiers: Chronic kidney disease stage: stage 3 (moderate) (5) Aortic stenosis Status: Chronic Assessment and plan: Dr. Pavon from cardiothoracic surgery was consulted. Patient is considered high risk and would be more beneficial to transfer to a higher level of care for aortic and mitral valve replacement Current Visit: No (6) Mitral stenosis Status: Acute Assessment and plan: Dr. Pavon consulted would benefit for higher level of care for MV replacement Current Visit: Yes (7) Leukocytosis Status: Acute Assessment and plan: Blood cultures 2 pending, start Zosyn, continue DuoNeb Current Visit: Yes (8) Diabetes mellitus type 2 in obese Status: Chronic Assessment and plan: Patient currently is on glycerna, blood sugars very volatile, insulin sliding scale for now. Current Visit: Yes (9) Anemia Status: Acute Assessment and plan: Patient is a Druze and will not have blood transfusions. Current Visit: Yes (10) Elevated troponin Status: Acute Assessment and plan: Most likely due to cardiac strain Current Visit: Yes (11) Elevated liver enzymes Status: Acute Assessment and plan: Lipid and liver enzymes are improving with time. We will do abdominal ultrasound to look for fatty liver, we will do a hepatitis panel Current Visit: Yes Hospitalist: Subjective Interval history: Patient remains intubated on the ventilator. BNP is 1400. White count is elevated at 24. She is currently only on azithromycin. Dr. Marc was consulted for vent management. We will place an NG for tube feedings. Dietitian has been consulted to initiate tube feeding. Due to the elevated white count we will continue Zosyn to cover for aspiration pneumonia. Exam - Constitutional Vitals: Period Temp Pulse Resp BP Sys/Pina Pulse Ox Last 24 Hr 97.7 F-98.6 F 78-92 12-24 91-153/45-74 85-100 Exam: Heart Rate-[RRR] Lungs-[diminished ] GI-[+bs soft, NT] Ext-[no edema] Neuro [Motor 5/5], [alert and oriented times 3] psych [normal mood and affect] General [no acute distress] Results - Labs CBC & BMP: 04/05/17 01:39 04/05/17 09:48 Lab Results: I have reviewed the past 24 hour labs - Diagnostic Findings Procedure: Ultrasound: report reviewed by me (echo ef 40% moderate, mitral valve regurg and aortic valve regurg with PA P of 22)
--- NOTE | 2017-04-05 15:52 | Ultrasound Report ---
US abdomen Indication: Elevated liver enzymes. ULTRASOUND ABDOMEN, COMPLETE Comparison: 03/23/2017 Findings: Liver: Normal size and smooth contour without focal mass. Gallbladder: Unremarkable Common bile duct: 5.5 mm Aorta: Unremarkable IVC: Patent Spleen: Normal size without focal lesion Pancreas: Unremarkable Right kidney: 10.2 cm length. No mass, cyst, calcification or obstruction Left kidney: 10.7 cm length. No mass, cyst, calcification or obstruction Small right pleural effusion noted. Very small amount of ascites adjacent to the liver, too small for sampling. Impression: Right pleural effusion. Trace amount of ascites. PROCEDURE INTERPRETED AT [facility] DEPARTMENT OF RADIOLOGY Final Report Signed by: German Hankins M.D.
[2017-04-05] MEDS: FUROSEMIDE 40 MG/4 ML VIAL IV SCH (16:57)
[2017-04-05 18:18] LABS: Troponin I Only 0.378 NG/ML (0.00-0.045)
[2017-04-05 19:07] LABS: Hepatitis A Ab IgM Quant 0.11 Index; Hepatitis A Ab IgM Result Negative (Negative); Hepatitis B Core IgM Quant 0.11 Index; Hepatitis B Core IgM Result Negative (Negative); Hepatitis B Surface Ag Quant < 0.10 Index; Hepatitis B Surface Ag Result Negative (Negative); Hepatitis C Virus Ab Quant 0.06 Index; Hepatitis C Virus Ab Result Negative (Negative)
[2017-04-05] MEDS: ALBUTEROL/IPRATROPIUM 3 ML NEB RESP TX SCH (20:12)
[2017-04-05] MEDS: ATORVASTATIN 80 MG TABLET PO SCH (20:51)
[2017-04-06] MEDS: ALBUTEROL/IPRATROPIUM 3 ML NEB RESP TX SCH ×4 (00:26→19:28)
[2017-04-06] MEDS: INSULIN REGULAR 100 UNIT/ML SUBCUT SCH ×4 (00:32→18:24)
[2017-04-06] MEDS: PIPERACILLIN/TAZOBACTAM 3,375 MG in SODIUM CHLORIDE 0.9% 100 ML IV SCH ×3 (00:32→17:05)
[2017-04-06] MEDS ORDERED: cefTRIAXone 1,000 MG in SODIUM CHLORIDE 0.9% 100 ML IV SCH (03:00)
[2017-04-06 03:44] LABS: Allen Test Positive; Pt O2 Delivery Device Ventilator
[2017-04-06 03:47] LABS: ABG Base Excess 2.9 MMOL/L (-2.5-2.5); ABG HCO3 24.6 MMOL/L (20-26); ABG PCO2 29.9 MM HG (35-48); ABG PH 7.533 (7.35-7.45); ABG PO2 188.9 MM HG (80-95); ABG TCO2 25.5 MMOL/L (23-27)
[2017-04-06 03:48] LABS: ABG Oxygen Saturation 99.5 % (95-100)
[2017-04-06 04:28] LABS: Eosinophils # 0.1 10*3/uL (0.0-0.87); Eosinophils % 1.1 % (0.00-10.9)
[2017-04-06] MEDS: PANTOPRAZOLE 40 MG VIAL IV SCH (04:34)
[2017-04-06] MEDS: ENOXAPARIN 30 MG/0.3 ML SYRINGE SUBCUT SCH (04:34)
[2017-04-06 04:59] LABS: Basophils % 0.1 % (0.0-0.8); Hematocrit 26.4 VOL% (35.7-47.0); Immature Granulocytes % 0.6 %; Immature Granulocytes Absolute 0.08 #; Lymphocytes # 1.6 10*3/uL (1.4-4.0); Lymphocytes % 12.3 % (21.3-54.2); Mean Corpuscular HGB Conc 33.3 GM/DL (32-36); Mean Corpuscular Hemoglobin 29 PG (27-34); Mean Corpuscular Volume 85.4 FL (87-102); Mean Platelet Volume 9.3 FL (9.6-12.0); Monocytes # 1.1 10*3/uL (0.11-0.8); Monocytes % 8.7 % (1.7-12.7); Neutrophils # 10.1 10*3/uL (1.4-7.4); Neutrophils % 77.2 % (38.7-73.9)
[2017-04-06 05:00] LABS: Hemoglobin 8.8 GM/DL (12.0-16.0); Platelet Count 389 T/CUMM (130-400); Red Blood Count 3.09 MC/CUMM (3.8-5.5); White Blood Count 13.1 T/CUMM (4-12)
[2017-04-06 05:02] LABS: Albumin 1.9 G/DL (3.4-5.0); Bilirubin,Total 0.5 MG/DL (0.2-1.0); Calcium 8.1 MG/DL (8.5-10.1); Calcium 8.2 MG/DL (8.5-10.1); Magnesium 2.1 MG/DL (1.8-2.4); Osmolality,Calculated 291.3 MOS/KG (273-304); Osmolality,Calculated 293.1 MOS/KG (273-304); Potassium 4.2 MMOL/L (3.5-5.1); Total Protein 5.1 G/DL (6.4-8.3)
[2017-04-06 05:05] LABS: Phosphorous 3.2 MG/DL (2.5-4.9); Prealbumin 11.8 MG/DL (20-40)
[2017-04-06] MEDS: PROPOFOL 1,000 MG/100 ML BOTTLE IV SCH ×2 (07:11→13:51)
--- NOTE | 2017-04-06 07:54 | Pulmonology Progress Note ---
Pulmonary - PN: Subj Interval history: 76-year-old female has congestive heart failure due to valvular heart disease and cardiomyopathy. She looks a little better radiographically this morning. Her ABGs are improved. She is doing some brief CPAP. Dr. Pavon has seen her and has recommended that if she is to have repairs that would best be done percutaneously and that would involve transporting her to [facility]. At present she is not quite ready to be extubated. If she is to be moved she would be best removed while on the ventilator. If the plans are to move her next week and we may be able to get her weaned over the next couple of days. She is alert and calm this morning Exam (Progress Note) - Constitutional Vitals: Period Temp Pulse Resp BP Sys/Pina Pulse Ox Last 24 Hr 97.6 F-98.6 F 78-99 12-30 91-151/45-73 100-100 Exam: Patient is alert and calm vital signs normal. Pupils react to light. Orotracheal tube in place. Neck is supple no bruits. Chest reveals rales at the bases. Heart normal rate and rhythm with systolic and diastolic murmurs at the right base and left sternal border. Abdomen is soft nontender no masses. Bowel sounds present. Liver slightly enlarged. Extremities 1+ peripheral edema calves nontender Results - Labs CBC & BMP: 04/06/17 03:47 04/06/17 03:47 Lab Results: I have reviewed the past 24 hour labs - Diagnostic Findings Procedure: Chest x-ray: image reviewed by me (Pulmonary edema. Looks a little better than yesterday. ET tube is a little low. We will pull it back) Assessment and Plan (1) Aortic valve stenosis Status: Acute Assessment and plan: She has aortic stenosis and insufficiency. Defer to cardiology. 04/06/2017 being evaluated for percutaneous repair. Current Visit: Yes (2) Mitral stenosis Status: Acute Assessment and plan: Also apparently has mitral stenosis and insufficiency. Defer to cardiology 04/04/2017 cardiology and cardiovascular surgery managing. Current Visit: Yes (3) Pulmonary edema Status: Acute Assessment and plan: Due to congestive heart failure. Currently on ventilator. Will adjust ventilator settings as required 04/04/2017 x-ray is a little better but she is still wet. Weight is down 2 kg. Creatinine stable at 1.7. Current Visit: Yes (4) Respiratory failure Status: Acute Assessment and plan: ABGs acceptable. Start weaning once pulmonary edema is improved. 04/06/2017 ABGs much improved. Reducing settings. Current Visit: Yes (5) Congestive heart failure Status: Acute Assessment and plan: Due to valvular heart disease both aortic and mitral, and systolic congestive heart failure due to decreased ejection fraction of 35% 04/04/2017 this is a little improved with medications. Current Visit: No Qualifiers: Qualified Code(s): I50.43 - Acute on chronic combined systolic (congestive) and diastolic (congestive) heart failure (6) Mitral regurgitation Status: Chronic Assessment and plan: mitral regurgitation associated with mitral stenosis. Current Visit: No Qualifiers: Qualified Code(s): I34.0 - Nonrheumatic mitral (valve) insufficiency
--- NOTE | 2017-04-06 07:55 | Cardiology Progress Note ---
<Samina Segura E - Last Filed: 04/06/17 07:44> Assessment and Plan - Time spent with patient Time spent with patient: Less than 30 minutes (1) Respiratory failure Status: Acute Assessment and plan: See plan of care listed below. Current Visit: Yes (2) Congestive heart failure Status: Acute Assessment and plan: See plan of care listed below. Current Visit: No Qualifiers: Congestive heart failure type: combined Congestive heart failure chronicity : acute on chronic Qualified Code(s): I50.43 - Acute on chronic combined systolic (congestive) and diastolic (congestive) heart failure (3) Coronary artery disease Status: Chronic Assessment and plan: See plan of care listed below. Current Visit: No Qualifiers: Coronary Disease-Associated Artery/Lesion type: [place] artery [place] vs. transplanted heart: [place] heart Associated angina: without angina Qualified Code(s): I25.10 - Atherosclerotic heart disease of [place] coronary artery without angina pectoris (4) Aortic insufficiency Status: Chronic Assessment and plan: See plan of care listed below. Current Visit: No Qualifiers: Cardiac valve disease etiology: nonrheumatic Qualified Code(s): I35.1 - Nonrheumatic aortic (valve) insufficiency (5) Essential hypertension Status: Chronic Assessment and plan: See plan of care listed below. Current Visit: Yes (6) Hyperlipidemia Status: Chronic Assessment and plan: See plan of care listed below. Current Visit: No Qualifiers: Hyperlipidemia type: pure hypercholesterolemia Qualified Code(s): E78.00 - Pure hypercholesterolemia, unspecified; E78.0 - Pure hypercholesterolemia (7) Chronic kidney disease (CKD) Status: Chronic Assessment and plan: See plan of care listed below. Current Visit: Yes Qualifiers: Chronic kidney disease stage: stage 4 (severe) Qualified Code(s): N18.4 - Chronic kidney disease, stage 4 (severe) (8) Diabetes mellitus Status: Chronic Assessment and plan: See plan of care listed below. Current Visit: Yes (9) Anemia Status: Chronic Assessment and plan: See plan of care listed below. Current Visit: Yes (10) Mitral regurgitation Status: Chronic Assessment and plan: See plan of care listed below. 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 CRUZ Ms. Moscoso is a 76 year old female with a history of coronary artery disease, aortic insufficiency, mitral regurgitation, congestive heart failure, diabetes, hyperlipidemia, and hypertension. She is status post non-STEMI with three-vessel CAD (occluded ostial RCA, 70% calcific proximal LAD , 90% proximal circumflex) per left heart catheterization on 03/20/17. She has calcific mitral and aortic valve disease; she appears to have approximately 3+ and AR, but also has reduced leaflet motion of her mitral valve and elevated transvalvular gradient (10/25 median peak). Echocardiogram on 03/17/17 revealed depressed EF of 30%, mild LVH, grade 3 diastolic dysfunction. 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 This certainly complicates the possibility of major CV Surgery. She is willing to consider taking a transfusion from her self at a later time. She was just discharged from the hospital 3 days ago after being treated for approximately 2 weeks for CHF and N- STEMI and returned to the emergency room with complaints of chest pain and shortness of breath. She was intubated in the emergency department. This patient has coronary artery disease and double valve disease now with respiratory failure. She has been seen by cardiothoracic surgery and is felt to be a prohibitive surgical risk. Dr. Noble had a long discussion with the patient and her family yesterday regarding possible treatment options. He has requested her imaging be transmitted to Dr. Giovani Monroe at [facility] to see if they will help with approach to Ms. Moscoso's cardiac condition. Echocardiogram was repeated on 04/05/2017 and revealed EF 40-45%, mild LVH, moderate aortic insufficiency, mild mitral insufficiency. She actually seems to have a better ejection fraction now and her valve disease did not seem severe as previously documented. Ms. Moscoso looks well today. She is very alert and appears comfortable on the ventilator. Assessment/plan: 1. Respiratory failure -patient is sedated on mechanical ventilation. Pulmonology is following along for ventilator management. She is tolerating CPAP trials and her chest x-ray looks a little better. 2. Congestive heart failure -patient has been readmitted on 04/05/17 after being discharged 3 days ago with recurrent heart failure. IV Lasix has been started. 3. Coronary artery disease -continue aspirin, beta-hector, statin. Will avoid NO or ARB due to renal insufficiency. 4. Aortic insufficiency -per BISHNU on 03/31/17, there is moderate to severe aortic stenosis and at least mild insufficiency. Will continue offloading as tolerated. Will await recommendations from Dr. Monroe at [facility]. 5. Hypertension -currently well controlled. We will continue to monitor and adjust accordingly. 6. Hyperlipidemia -continue lipid-lowering agent. 7. Acute on chronic renal failure -creatinine is around her baseline at 1.7. We will avoid any nephrotoxic agents. 8. Diabetes -she has been started on Accu-Cheks and sliding scale insulin. 9. Anemia -H&H 8.8 and 26.4 today. We will continue to monitor. 10. Mitral regurgitation -per BISHNU on 03/31/17, there is moderate to severe mitral stenosis and at least moderate regurgitation. At this point, will further discuss treatment options with Dr. Noble and await his recommendations. Exam (Progress Note) - Constitutional Vitals: Period Temp Pulse Resp BP Sys/Pina Pulse Ox Last 24 Hr 97.6 F-98.6 F 78-99 12-30 91-151/45-73 100-100 Exam: General appearance: Orally intubated and sedated on ventilator. Normal weight, no acute distress. - Head Head exam: Present: normal inspection, normocephalic, atraumatic. Absent: hematoma, laceration - Eye Eye exam: Present: EOMI. Absent: conjunctival injection, nystagmus, periorbital swelling, scleral icterus, laceration to eyelids Pupils: Present: PERRL. Absent: constricted, dilated, fixed, irregular, unequal - ENT ENT exam: Present: Orally intubated, normal external ear exam - Neck Neck exam: Present: normal inspection. Absent: lymphadenopathy, meningismus, tenderness, thyromegaly - Respiratory Respiratory exam: Present: Mechanically ventilated breath sounds. Absent: accessory muscle use - Cardiovascular Cardiovascular exam: Present: regular rate and rhythm, systolic murmur (3/6 at second intercostal space). Absent: diastolic murmur, rubs - GI/Abdominal GI/Abdominal exam: Present: normal bowel sounds, soft. Absent: distended, firm , guarding, hernia, mass, tenderness, rebound. - Extremities Exam Extremities exam: Present: normal inspection, normal capillary refill. Upper extremity pulses 2+. Lower extremity pulses 2+. 2+ pitting edema to BLE. Absent : calf tenderness - Back Exam Back exam: Present: Unable to examine due to habitus. Sedated on mechanical ventilator. - Neurological Exam Neurological exam: Present: Limited due to habitus (on ventilator). Arousable to verbal stimuli. Follows commands appropriately. Denies appropriately to questions. No resting or essential tremor. - Psychiatric Psychiatric exam: Present: Unable to adequately assess due to patient being sedated and on mechanical ventilation. - Skin Skin exam: Present: normal color, warm, dry, intact. Absent: cyanosis, diaphoretic, rash, urticaria Result/EKG - Labs CBC & BMP: 04/06/17 03:47 04/06/17 03:47 Lab Results: I have reviewed the past 24 hour labs Labs: Laboratory Results - last 24 hr 04/05/17 04/05/17 04/05/17 09:41 09:48 09:48 WBC RBC Hgb Hct MCV MCH MCHC RDW Plt Count MPV Neut % (Auto) Lymph % (Auto) [place] % (Auto) Eos % (Auto) Baso % (Auto) Neut # (Auto) Lymph # (Auto) [place] # (Auto) Eos # (Auto) Baso # (Auto) Immature Gran % Nucleated RBC % Immature Gran # Nucleated RBCs # ABG pH ABG pCO2 ABG pO2 ABG HCO3 ABG Total CO2 ABG O2 Saturation ABG Base Excess FiO2 Sodium 139 Potassium 4.8 Chloride 104 Carbon Dioxide 26 Anion Gap 13.8 BUN 42 H Creatinine 1.80 H GFR Calculation 26 BUN/Creatinine Ratio 23.00 H Glucose 101 POC Glucose Hemoglobin A1c Calculated Osmolality 287.5 Calcium 8.5 Phosphorus Magnesium Total Bilirubin < 0.39 AST 67 H ALT 62 H Alkaline Phosphatase 209 H Total Creatine Kinase 69 D CK-MB (CK-2) 2.0 Troponin I 0.401 H 0.402 H Total Protein 5.9 L Albumin 2.2 L Globulin 3.7 H Albumin/Globulin Ratio 0.5 L Prealbumin Hepatitis A IgM Ab Hep Bs Antigen Hep B Core IgM Ab Hepatitis C Antibody 04/05/17 04/05/17 04/05/17 11:33 17:06 17:06 WBC RBC Hgb Hct MCV MCH MCHC RDW Plt Count MPV Neut % (Auto) Lymph % (Auto) [place] % (Auto) Eos % (Auto) Baso % (Auto) Neut # (Auto) Lymph # (Auto) [place] # (Auto) Eos # (Auto) Baso # (Auto) Immature Gran % Nucleated RBC % Immature Gran # Nucleated RBCs # ABG pH ABG pCO2 ABG pO2 ABG HCO3 ABG Total CO2 ABG O2 Saturation ABG Base Excess FiO2 Sodium Potassium Chloride Carbon Dioxide Anion Gap BUN Creatinine GFR Calculation BUN/Creatinine Ratio Glucose POC Glucose 70 L Hemoglobin A1c 7.9 H Calculated Osmolality Calcium Phosphorus Magnesium Total Bilirubin AST ALT Alkaline Phosphatase Total Creatine Kinase 66 CK-MB (CK-2) 1.8 Troponin I 0.378 H Total Protein Albumin Globulin Albumin/Globulin Ratio Prealbumin Hepatitis A IgM Ab Hep Bs Antigen Hep B Core IgM Ab Hepatitis C Antibody 04/05/17 04/05/17 04/06/17 17:06 17:44 00:25 WBC RBC Hgb Hct MCV MCH MCHC RDW Plt Count MPV Neut % (Auto) Lymph % (Auto) [place] % (Auto) Eos % (Auto) Baso % (Auto) Neut # (Auto) Lymph # (Auto) [place] # (Auto) Eos # (Auto) Baso # (Auto) Immature Gran % Nucleated RBC % Immature Gran # Nucleated RBCs # ABG pH ABG pCO2 ABG pO2 ABG HCO3 ABG Total CO2 ABG O2 Saturation ABG Base Excess FiO2 Sodium Potassium Chloride Carbon Dioxide Anion Gap BUN Creatinine GFR Calculation BUN/Creatinine Ratio Glucose POC Glucose 81 157 H Hemoglobin A1c Calculated Osmolality Calcium Phosphorus Magnesium Total Bilirubin AST ALT Alkaline Phosphatase Total Creatine Kinase CK-MB (CK-2) Troponin I Total Protein Albumin Globulin Albumin/Globulin Ratio Prealbumin Hepatitis A IgM Ab Negative Hep Bs Antigen Negative Hep B Core IgM Ab Negative Hepatitis C Antibody Negative 04/06/17 04/06/17 04/06/17 03:30 03:47 03:47 WBC RBC Hgb Hct MCV MCH MCHC RDW Plt Count MPV Neut % (Auto) Lymph % (Auto) [place] % (Auto) Eos % (Auto) Baso % (Auto) Neut # (Auto) Lymph # (Auto) [place] # (Auto) Eos # (Auto) Baso # (Auto) Immature Gran % Nucleated RBC % Immature Gran # Nucleated RBCs # ABG pH 7.533 H ABG pCO2 29.9 L ABG pO2 188.9 H ABG HCO3 24.6 ABG Total CO2 25.5 ABG O2 Saturation 99.5 ABG Base Excess 2.9 H FiO2 45.00 Sodium 142 Potassium 4.2 Chloride 105 Carbon Dioxide 29 Anion Gap 12.2 BUN 39 H Creatinine 1.70 H GFR Calculation 28 BUN/Creatinine Ratio 22.00 H Glucose 131 H POC Glucose Hemoglobin A1c Calculated Osmolality 293.1 Calcium 8.1 L Phosphorus 3.2 Magnesium 2.0 Total Bilirubin 0.50 AST 28 ALT 40 Alkaline Phosphatase 172 H Total Creatine Kinase CK-MB (CK-2) Troponin I Total Protein 5.1 L Albumin 1.9 L Globulin 3.2 Albumin/Globulin Ratio 0.5 L Prealbumin 11.8 L Hepatitis A IgM Ab Hep Bs Antigen Hep B Core IgM Ab Hepatitis C Antibody 04/06/17 04/06/17 04/06/17 03:47 03:47 05:34 WBC 13.1 H D RBC 3.09 L D Hgb 8.8 L D Hct 26.4 L MCV 85.4 L MCH 29 MCHC 33.3 RDW 14.0 Plt Count 389 D MPV 9.3 L Neut % (Auto) 77.2 H Lymph % (Auto) 12.3 L [place] % (Auto) 8.7 Eos % (Auto) 1.1 Baso % (Auto) 0.1 Neut # (Auto) 10.1 H Lymph # (Auto) 1.6 Cache # (Auto) 1.1 H Eos # (Auto) 0.1 Baso # (Auto) 0.0 Immature Gran % 0.6 Nucleated RBC % 0.0 Immature Gran # 0.08 Nucleated RBCs # 0.00 ABG pH ABG pCO2 ABG pO2 ABG HCO3 ABG Total CO2 ABG O2 Saturation ABG Base Excess FiO2 Sodium 141 Potassium 4.2 Chloride 105 Carbon Dioxide 30 Anion Gap 10.2 BUN 37 H Creatinine 1.70 H GFR Calculation 28 BUN/Creatinine Ratio 21.00 H Glucose 126 H POC Glucose 126 H Hemoglobin A1c Calculated Osmolality 291.3 Calcium 8.2 L Phosphorus Magnesium 2.1 Total Bilirubin AST ALT Alkaline Phosphatase Total Creatine Kinase CK-MB (CK-2) Troponin I Total Protein Albumin Globulin Albumin/Globulin Ratio Prealbumin Hepatitis A IgM Ab Hep Bs Antigen Hep B Core IgM Ab Hepatitis C Antibody - EKG EKG results: interpreted by me, sinus rhythm (With ST-T abnormality.) <Chrissy Noble - Last Filed: 04/06/17 09:14> Assessment and Plan (1) Congestive heart failure Status: Chronic Current Visit: No Qualifiers: Congestive heart failure type: combined Congestive heart failure chronicity : acute on chronic Qualified Code(s): I50.43 - Acute on chronic combined systolic (congestive) and diastolic (congestive) heart failure (2) Coronary artery disease Status: Chronic Current Visit: No Qualifiers: Coronary Disease-Associated Artery/Lesion type: [place] artery [place] vs. transplanted heart: [place] heart Associated angina: without angina Qualified Code(s): I25.10 - Atherosclerotic heart disease of [place] coronary artery without angina pectoris (3) Aortic insufficiency Status: Chronic Current Visit: No Qualifiers: Cardiac valve disease etiology: nonrheumatic Qualified Code(s): I35.1 - Nonrheumatic aortic (valve) insufficiency (4) Mitral regurgitation Status: Chronic Current Visit: No Qualifiers: Cardiac valve disease etiology: nonrheumatic Qualified Code(s): I34.0 - Nonrheumatic mitral (valve) insufficiency (5) Biatrial enlargement Status: Chronic Current Visit: Yes (6) Anemia Status: Chronic Current Visit: Yes (7) Aortic stenosis Status: Chronic Current Visit: No (8) Mitral stenosis Status: Acute Current Visit: Yes (9) Pulmonary edema Status: Acute Current Visit: Yes (10) Respiratory failure Status: Acute Current Visit: Yes (11) Anemia Status: Acute Assessment and plan: Is acute on chronic is worsened overnight Current Visit: Yes Cardiology - PN: Subj Interval history: Ms. Moscoso looks much better today. She is more awake and alert. She follows commands and answers closed ended questions. She denies any chest pain. Her ejection fraction had improved yesterday her valve disease remains equivocal. She has a significantly abnormal cardiac exam with both mitral stenotic and regurgitant murmurs as well as tricuspid regurgitant murmur. Her AST murmur to me sounds like she has a single second heart sound which would support moderate left ear. I cannot hear her AI murmur unless this is clouded by the mitral murmur. She did have a significant decline in her H&H overnight. I discussed with Dr. Monroe and him also discussed with Dr. Brizuela. Dr. Monroe will review her studies and we will communicate again later today. The drop in hemoglobin is very concerning. Her hemoglobin has dropped despite an apparent diuresis and negative fluid balance. Exam (Progress Note) - Constitutional Vitals: Period Temp Pulse Resp BP Sys/Pina Pulse Ox Last 24 Hr 97.6 F-98.6 F 78-99 10-30 91-151/45-73 100-100 Exam: Cardiac exam is regular she remains in sinus rhythm she has a 3/6 murmur at the second right intercostal space with a single second heart sound. The fourth left parasternal area has a harsh 3/6 murmur. She has both a diastolic and systolic component to apical murmur. Her PMI slightly laterally displaced. I do not hear radiation of the murmur to her axilla. The diastolic and systolic component are both present sounds at some times like a rub. But I only hear to components. Her lung exam is clear on the ventilator. She has minimal lower extremity edema. Result/EKG - Labs CBC & BMP: 04/06/17 03:47 04/06/17 03:47 Labs: Laboratory Results - last 24 hr 04/05/17 04/05/17 04/05/17 09:41 09:48 09:48 WBC RBC Hgb Hct MCV MCH MCHC RDW Plt Count MPV Neut % (Auto) Lymph % (Auto) [place] % (Auto) Eos % (Auto) Baso % (Auto) Neut # (Auto) Lymph # (Auto) [place] # (Auto) Eos # (Auto) Baso # (Auto) Immature Gran % Nucleated RBC % Immature Gran # Nucleated RBCs # ABG pH ABG pCO2 ABG pO2 ABG HCO3 ABG Total CO2 ABG O2 Saturation ABG Base Excess FiO2 Sodium 139 Potassium 4.8 Chloride 104 Carbon Dioxide 26 Anion Gap 13.8 BUN 42 H Creatinine 1.80 H GFR Calculation 26 BUN/Creatinine Ratio 23.00 H Glucose 101 POC Glucose Hemoglobin A1c Calculated Osmolality 287.5 Calcium 8.5 Phosphorus Magnesium Total Bilirubin < 0.39 AST 67 H ALT 62 H Alkaline Phosphatase 209 H Total Creatine Kinase 69 D CK-MB (CK-2) 2.0 Troponin I 0.401 H 0.402 H Total Protein 5.9 L Albumin 2.2 L Globulin 3.7 H Albumin/Globulin Ratio 0.5 L Prealbumin Hepatitis A IgM Ab Hep Bs Antigen Hep B Core IgM Ab Hepatitis C Antibody 04/05/17 04/05/17 04/05/17 11:33 17:06 17:06 WBC RBC Hgb Hct MCV MCH MCHC RDW Plt Count MPV Neut % (Auto) Lymph % (Auto) [place] % (Auto) Eos % (Auto) Baso % (Auto) Neut # (Auto) Lymph # (Auto) [place] # (Auto) Eos # (Auto) Baso # (Auto) Immature Gran % Nucleated RBC % Immature Gran # Nucleated RBCs # ABG pH ABG pCO2 ABG pO2 ABG HCO3 ABG Total CO2 ABG O2 Saturation ABG Base Excess FiO2 Sodium Potassium Chloride Carbon Dioxide Anion Gap BUN Creatinine GFR Calculation BUN/Creatinine Ratio Glucose POC Glucose 70 L Hemoglobin A1c 7.9 H Calculated Osmolality Calcium Phosphorus Magnesium Total Bilirubin AST ALT Alkaline Phosphatase Total Creatine Kinase 66 CK-MB (CK-2) 1.8 Troponin I 0.378 H Total Protein Albumin Globulin Albumin/Globulin Ratio Prealbumin Hepatitis A IgM Ab Hep Bs Antigen Hep B Core IgM Ab Hepatitis C Antibody 04/05/17 04/05/17 04/06/17 17:06 17:44 00:25 WBC RBC Hgb Hct MCV MCH MCHC RDW Plt Count MPV Neut % (Auto) Lymph % (Auto) [place] % (Auto) Eos % (Auto) Baso % (Auto) Neut # (Auto) Lymph # (Auto) [place] # (Auto) Eos # (Auto) Baso # (Auto) Immature Gran % Nucleated RBC % Immature Gran # Nucleated RBCs # ABG pH ABG pCO2 ABG pO2 ABG HCO3 ABG Total CO2 ABG O2 Saturation ABG Base Excess FiO2 Sodium Potassium Chloride Carbon Dioxide Anion Gap BUN Creatinine GFR Calculation BUN/Creatinine Ratio Glucose POC Glucose 81 157 H Hemoglobin A1c Calculated Osmolality Calcium Phosphorus Magnesium Total Bilirubin AST ALT Alkaline Phosphatase Total Creatine Kinase CK-MB (CK-2) Troponin I Total Protein Albumin Globulin Albumin/Globulin Ratio Prealbumin Hepatitis A IgM Ab Negative Hep Bs Antigen Negative Hep B Core IgM Ab Negative Hepatitis C Antibody Negative 04/06/17 04/06/17 04/06/17 03:30 03:47 03:47 WBC RBC Hgb Hct MCV MCH MCHC RDW Plt Count MPV Neut % (Auto) Lymph % (Auto) [place] % (Auto) Eos % (Auto) Baso % (Auto) Neut # (Auto) Lymph # (Auto) [place] # (Auto) Eos # (Auto) Baso # (Auto) Immature Gran % Nucleated RBC % Immature Gran # Nucleated RBCs # ABG pH 7.533 H ABG pCO2 29.9 L ABG pO2 188.9 H ABG HCO3 24.6 ABG Total CO2 25.5 ABG O2 Saturation 99.5 ABG Base Excess 2.9 H FiO2 45.00 Sodium 142 Potassium 4.2 Chloride 105 Carbon Dioxide 29 Anion Gap 12.2 BUN 39 H Creatinine 1.70 H GFR Calculation 28 BUN/Creatinine Ratio 22.00 H Glucose 131 H POC Glucose Hemoglobin A1c Calculated Osmolality 293.1 Calcium 8.1 L Phosphorus 3.2 Magnesium 2.0 Total Bilirubin 0.50 AST 28 ALT 40 Alkaline Phosphatase 172 H Total Creatine Kinase CK-MB (CK-2) Troponin I Total Protein 5.1 L Albumin 1.9 L Globulin 3.2 Albumin/Globulin Ratio 0.5 L Prealbumin 11.8 L Hepatitis A IgM Ab Hep Bs Antigen Hep B Core IgM Ab Hepatitis C Antibody 04/06/17 04/06/17 04/06/17 03:47 03:47 05:34 WBC 13.1 H D RBC 3.09 L D Hgb 8.8 L D Hct 26.4 L MCV 85.4 L MCH 29 MCHC 33.3 RDW 14.0 Plt Count 389 D MPV 9.3 L Neut % (Auto) 77.2 H Lymph % (Auto) 12.3 L Cache % (Auto) 8.7 Eos % (Auto) 1.1 Baso % (Auto) 0.1 Neut # (Auto) 10.1 H Lymph # (Auto) 1.6 Cache # (Auto) 1.1 H Eos # (Auto) 0.1 Baso # (Auto) 0.0 Immature Gran % 0.6 Nucleated RBC % 0.0 Immature Gran # 0.08 Nucleated RBCs # 0.00 ABG pH ABG pCO2 ABG pO2 ABG HCO3 ABG Total CO2 ABG O2 Saturation ABG Base Excess FiO2 Sodium 141 Potassium 4.2 Chloride 105 Carbon Dioxide 30 Anion Gap 10.2 BUN 37 H Creatinine 1.70 H GFR Calculation 28 BUN/Creatinine Ratio 21.00 H Glucose 126 H POC Glucose 126 H Hemoglobin A1c Calculated Osmolality 291.3 Calcium 8.2 L Phosphorus Magnesium 2.1 Total Bilirubin AST ALT Alkaline Phosphatase Total Creatine Kinase CK-MB (CK-2) Troponin I Total Protein Albumin Globulin Albumin/Globulin Ratio Prealbumin Hepatitis A IgM Ab Hep Bs Antigen Hep B Core IgM Ab Hepatitis C Antibody
--- NOTE | 2017-04-06 08:15 | XRay Report ---
Portable chest Date: 04/06/2017 Clinical history: Ventilator Comparison: 04/05/2017 Technique: Portable AP sitting chest Findings: Stable cardiomegaly. The tip of the endotracheal tube projects in the right mainstem bronchus. Progressive parenchymal findings with minimally larger pleural effusions. Stable mediastinum and osseous structures. Impression: The tip of the endotracheal tube projects in the right mainstem bronchus and should be retracted above this level as discussed the patient's nurse, Kala Darling at 8:10 AM on 04/06/2017. Progressive atelectasis/infiltration/edema with larger pleural effusions. Critical test results PROCEDURE INTERPRETED AT [facility] DEPARTMENT OF RADIOLOGY Final Report Signed by: Dr. Rosa Hurtado
[2017-04-06] MEDS: FUROSEMIDE 40 MG/4 ML VIAL IV SCH ×2 (09:00→16:55)
[2017-04-06] MEDS: ASPIRIN EC 81 MG TABLET PO SCH ×2 (09:01→09:48)
[2017-04-06] MEDS: POLYVINYL ALCOHOL 1.4% OPH SOLN 15 ML BOTTLE BOTH EYES SCH ×4 (09:01→21:56)
[2017-04-06] MEDS: CARVEDILOL 12.5 MG TABLET PO SCH ×2 (09:01→21:56)
[2017-04-06] MEDS: OFLOXACIN 0.3% OPH SOLN 10 ML BOTTLE LEFT EYE SCH ×4 (09:03→21:58)
[2017-04-06] MEDS: MULTIVITAMIN LIQUID (CENTRUM) 60 ML BOTTLE PO SCH (09:03)
[2017-04-06] MEDS: CLOTRIMAZOLE/BETAMETHASONE CREAM 15 GM TUBE TOP SCH (09:04)
--- NOTE | 2017-04-06 09:21 | XRay Report ---
Portable chest Date: 04/06/2017 Clinical history: Repositioned endotracheal tube Comparison: 04/06/2017 Technique: Portable AP sitting chest Findings: Stable cardiomegaly. Satisfactory retraction of the endotracheal tube which projects in satisfactory position. Nasogastric tube seen entering the stomach. Reduced parenchymal findings in the lungs with smaller pleural effusions. Stable mediastinum and osseous structures. Impression: Supportive devices in satisfactory position with reduced atelectasis/edema/infiltration with smaller pleural effusions. PROCEDURE INTERPRETED AT [facility] DEPARTMENT OF RADIOLOGY Final Report Signed by: Dr. Rosa Hurtado
[2017-04-06] MEDS: ASPIRIN CHEW 81 MG TABLET PO SCH (09:34)
--- NOTE | 2017-04-06 14:26 | Hospitalist Progress Note ---
Assessment and Plan (1) Acute respiratory failure Status: Acute Assessment and plan: Improving with diuresis. Still plan to transfer to [facility] for valve replacement. Current Visit: Yes (2) Congestive heart failure Status: Chronic Assessment and plan: Continue Lasix and Coreg Current Visit: No Qualifiers: Congestive heart failure type: combined Congestive heart failure chronicity : acute on chronic Qualified Code(s): I50.43 - Acute on chronic combined systolic (congestive) and diastolic (congestive) heart failure (3) Essential hypertension Status: Chronic Assessment and plan: continue Coreg 12.5 mg p.o. twice daily Current Visit: Yes (4) Acute renal failure superimposed on chronic kidney disease Status: Resolved Assessment and plan: Stable continue to monitor while on diuresis Current Visit: No Qualifiers: Chronic kidney disease stage: stage 3 (moderate) (5) Aortic stenosis Status: Chronic Assessment and plan: Plan to transfer to [facility] for valve replacement Current Visit: No (6) Mitral stenosis Status: Acute Assessment and plan: plan to tranfer to [facility] for valve replacement Current Visit: Yes (7) Leukocytosis Status: Acute Assessment and plan: Blood cultures 2 negative,WBC improving, cont Zosyn and DuoNeb Current Visit: Yes (8) Diabetes mellitus type 2 in obese Status: Chronic Assessment and plan: Patient currently is on glycerna,BS better today Current Visit: Yes (9) Anemia Status: Acute Assessment and plan: Patient is a [employer] and will not have blood transfusions. monitor hgb , had to stop dvt prop lovenox and use scd Current Visit: Yes (10) Elevated troponin Status: Acute Assessment and plan: Most likely due to cardiac strain Current Visit: Yes (11) Elevated liver enzymes Status: Acute Assessment and plan: resolved, hepatitis panel negative Current Visit: Yes Hospitalist: Subjective Interval history: Patient is on stage III of weaning trials. I spoke with Dr. Noble and he is making arrangements to transfer her to [facility] for aortic and mitral valve replacement under the care of Dr. Green Exam - Constitutional Vitals: Period Temp Pulse Resp BP Sys/Pina Pulse Ox Last 24 Hr 97.1 F-98.6 F 79-99 10-31 118-154/49-73 98-100 Exam: Heart Rate-[RRR] Lungs-[clear] GI-[+bs soft, NT] Ext-[no edema] Neuro following commands psych [normal mood and affect] General [no acute distress] Results - Labs CBC & BMP: 04/06/17 03:47 04/06/17 03:47 Lab Results: I have reviewed the past 24 hour labs Labs: hgb A1c 7.9, blood cultures 2 negative - Diagnostic Findings Procedure: Chest x-ray: report reviewed by me (Pulmonary edema improving still has small pleural effusion)
[2017-04-06] MEDS: ATORVASTATIN 80 MG TABLET PO SCH (21:56)
[2017-04-07] MEDS: CLOTRIMAZOLE/BETAMETHASONE CREAM 15 GM TUBE TOP SCH ×3 (00:12→20:07)
[2017-04-07] MEDS: PROPOFOL 1,000 MG/100 ML BOTTLE IV SCH ×3 (00:14→07:01)
[2017-04-07] MEDS: INSULIN REGULAR 100 UNIT/ML SUBCUT SCH ×5 (00:21→23:40)
[2017-04-07] MEDS: ALBUTEROL/IPRATROPIUM 3 ML NEB RESP TX SCH ×4 (00:36→19:11)
[2017-04-07] MEDS: PIPERACILLIN/TAZOBACTAM 3,375 MG in SODIUM CHLORIDE 0.9% 100 ML IV SCH ×2 (01:37→08:30)
[2017-04-07 04:36] LABS: Basophils % 0.2 % (0.0-0.8); Eosinophils # 0.1 10*3/uL (0.0-0.87); Eosinophils % 1.2 % (0.00-10.9); Hemoglobin 9.4 GM/DL (12.0-16.0); Immature Granulocytes % 0.5 %; Immature Granulocytes Absolute 0.05 #; Lymphocytes # 1.1 10*3/uL (1.4-4.0); Lymphocytes % 11.3 % (21.3-54.2); Mean Corpuscular HGB Conc 31.3 GM/DL (32-36); Mean Corpuscular Hemoglobin 28 PG (27-34); Mean Corpuscular Volume 88.2 FL (87-102); Mean Platelet Volume 9.8 FL (9.6-12.0); Monocytes % 10.3 % (1.7-12.7); Neutrophils # 7.6 10*3/uL (1.4-7.4); Neutrophils % 76.5 % (38.7-73.9); Platelet Count 365 T/CUMM (130-400); Red Cell Distribution Width 14.2 % (9.3-17.3); White Blood Count 9.9 T/CUMM (4-12)
[2017-04-07] MEDS: PANTOPRAZOLE 40 MG VIAL IV SCH (05:40)
[2017-04-07 05:53] LABS: Band Neutrophils 2 % (0-10); Eosinophils 1 % (0-10); Lymphocytes 10 % (20-55); Metamyelocytes 2 %; Myelocytes 3 %; Segmented Neutrophils 77 % (50-85)
[2017-04-07 05:54] LABS: Platelet Estimate Normal; Total Cells Counted 100
--- NOTE | 2017-04-07 06:43 | Pulmonology Progress Note ---
Pulmonary - PN: Subj Interval history: 76-year-old female has congestive heart failure due to valvular heart disease and cardiomyopathy. She looks a little better radiographically this morning. Her ABGs are improved. She is doing some brief CPAP. Dr. Pavon has seen her and has recommended that if she is to have repairs that would best be done percutaneously and that would involve transporting her to [facility]. At present she is not quite ready to be extubated. If she is to be moved she would be best removed while on the ventilator. If the plans are to move her next week and we may be able to get her weaned over the next couple of days. She is alert and calm this morning 04/07/2017 patient with severe valvular heart disease that needs percutaneous valve repairs. Not a good surgical candidate. Currently on ventilator for congestive heart failure. ABGs and chest x-ray are pending this morning. If they look okay we will do a CPAP trial in anticipation of extubation. Await word on when she is to go to [place] to coordinate this. If she is going today we would probably do best not to extubate her yet. Exam (Progress Note) - Constitutional Vitals: Period Temp Pulse Resp BP Sys/Pina Pulse Ox Last 24 Hr 97.1 F-98 F 80-98 10-31 123-167/52-102 96-100 Exam: Patient is alert and calm vital signs normal. Pupils react to light. Orotracheal tube in place. Neck is supple no bruits. Chest reveals rales at the bases. Heart normal rate and rhythm with systolic and diastolic murmurs at the right base and left sternal border. Abdomen is soft nontender no masses. Bowel sounds present. Liver slightly enlarged. Extremities 1+ peripheral edema calves nontender. Little change from yesterday. Results - Labs CBC & BMP: 04/07/17 03:40 04/06/17 03:47 Lab Results: I have reviewed the past 24 hour labs - Diagnostic Findings Procedure: Chest x-ray: pending Assessment and Plan (1) Aortic valve stenosis Status: Acute Assessment and plan: She has aortic stenosis and insufficiency. Defer to cardiology. 04/06/2017 being evaluated for percutaneous repair. 04/07/2017 main cause of her heart failure. Arrangements being made for repair. Current Visit: Yes (2) Mitral stenosis Status: Acute Assessment and plan: Also apparently has mitral stenosis and insufficiency. Defer to cardiology 04/04/2017 cardiology and cardiovascular surgery managing. Current Visit: Yes (3) Pulmonary edema Status: Acute Assessment and plan: Due to congestive heart failure. Currently on ventilator. Will adjust ventilator settings as required 04/06/2017 x-ray is a little better but she is still wet. Weight is down 2 kg. Creatinine stable at 1.7. 04/07/2017 chest x-ray is pending. If it looks clear we should be able to get her extubated. Will need to coordinate this with plans for transfer. If she is to go to [place] today we would do best not to extubate her yet Current Visit: Yes (4) Respiratory failure Status: Acute Assessment and plan: ABGs acceptable. Start weaning once pulmonary edema is improved. 04/06/2017 ABGs much improved. Reducing settings. 04/07/2017 ABGs have been good. They are pending this morning. O2 sats 100%. Patient alert and calm when sedation is held. The cause of the respiratory failure is congestive heart failure. Current Visit: Yes (5) Congestive heart failure Status: Chronic Assessment and plan: Due to valvular heart disease both aortic and mitral, and systolic congestive heart failure due to decreased ejection fraction of 35% 04/06/2017 this is a little improved with medications. 04/07/2017 congestive heart failure is a little better. Current Visit: No Qualifiers: Congestive heart failure type: combined Congestive heart failure chronicity : acute on chronic Qualified Code(s): I50.43 - Acute on chronic combined systolic (congestive) and diastolic (congestive) heart failure (6) Mitral regurgitation Status: Chronic Assessment and plan: mitral regurgitation associated with mitral stenosis. Current Visit: No Qualifiers: Cardiac valve disease etiology: nonrheumatic Qualified Code(s): I34.0 - Nonrheumatic mitral (valve) insufficiency
[2017-04-07 07:34] LABS: ABG HCO3 29.8 MMOL/L (20-26); ABG PCO2 36.2 MM HG (35-48); ABG PH 7.514 (7.35-7.45); ABG TCO2 26.5 MMOL/L (23-27)
[2017-04-07 08:10] LABS: Calcium 8.5 MG/DL (8.5-10.1); Osmolality,Calculated 292.1 MOS/KG (273-304); Potassium 4.2 MMOL/L (3.5-5.1)
--- NOTE | 2017-04-07 08:16 | Cardiology Progress Note ---
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 transplanted heart: [place] heart Associated angina: without angina Qualified Code(s): I25.10 - Atherosclerotic heart disease of [place] coronary artery without angina pectoris (3) Aortic insufficiency Status: Chronic Current Visit: No Qualifiers: Cardiac valve disease etiology: nonrheumatic Qualified Code(s): I35.1 - Nonrheumatic aortic (valve) insufficiency (4) Mitral regurgitation Status: Chronic Current Visit: No Qualifiers: Cardiac valve disease etiology: nonrheumatic Qualified Code(s): I34.0 - Nonrheumatic mitral (valve) insufficiency (5) Biatrial enlargement Status: Chronic Current Visit: Yes (6) Anemia Status: Chronic Assessment and plan: This is better. I think given the fact that the patient will likely need some sort of intervention for her heart in the future that is not very far off it would be reasonable to consider administering Epogen to her because of her adventism beliefs she declines any transfusion of products. Current Visit: Yes (7) Aortic stenosis Status: Chronic Current Visit: No (8) Mitral stenosis Status: Acute Current Visit: Yes (9) Pulmonary edema Status: Acute Current Visit: Yes (10) Respiratory failure Status: Acute Current Visit: Yes (11) Anemia Status: Acute Assessment and plan: Consider Epogen Current Visit: Yes Cardiology - PN: Subj Interval history: Ms. Moscoso remains on the ventilator but she set up for significant portion of the day yesterday. She is not quite as alert today she was yesterday but this is due to sedation. I have discussed twice now with Dr. Monroe. He reviewed all of our studies and he agrees that this is likely moderate valve disease in both the mitral position from the stenosis standpoint and moderate /AI. This is most consistent with her most recent transthoracic echocardiogram. Is also noted that her ejection fraction has improved. This brings up the question of whether her heart failure is due to valvular heart disease or her underlying two-vessel coronary artery disease. After some discussion we feel it is best that we maximize Ms. Moscoso's medications, get off the ventilator and once she is at her stable state perform a dobutamine stress echocardiography. This will let us know if revascularization is the best option with or without valve intervention. Continue medical therapy, extubate and anticipate dobutamine stress echocardiography once she is stable. I discussed with Dr. Brizuela. Exam (Progress Note) - Constitutional Vitals: Period Temp Pulse Resp BP Sys/Pina Pulse Ox Last 24 Hr 97.1 F-98 F 78-98 10-31 127-167/58-102 96-100 General appearance: normal weight - Head Head exam: Present: normal inspection - Eye Eye exam: Present: EOMI - Neck Neck exam: Present: normal inspection - Respiratory Respiratory exam: Present: clear to auscultation bilaterally (I hear no rales on the vent) - Cardiovascular Cardiovascular exam: Present: regular rate and rhythm (Murmurs are without change. She has both systolic and diastolic murmurs at the mitral position she has murmur of aortic stenosis that sounds moderate with a single second heart sound I do not hear AI. Part of the diastolic murmur heard over the mitral listening post very well may represent aortic insufficiency) - GI/Abdominal GI/Abdominal exam: Present: normal bowel sounds - Extremities Exam Extremities exam: Absent: edema - Neurological Exam Neurological exam: Present: alert Result/EKG - Labs CBC & BMP: 04/07/17 03:40 04/07/17 06:51 Labs: Laboratory Results - last 24 hr 04/06/17 04/06/17 04/07/17 11:51 18:03 00:17 WBC RBC Hgb Hct MCV MCH MCHC RDW Plt Count MPV Neut % (Auto) Lymph % (Auto) [place] % (Auto) Eos % (Auto) Baso % (Auto) Neut # (Auto) Lymph # (Auto) [place] # (Auto) Eos # (Auto) Baso # (Auto) Total Counted Immature Gran % Nucleated RBC % Immature Gran # Segmented Neutrophils Band Neutrophils Lymphocytes Monocytes Eosinophils Metamyelocytes Myelocytes Nucleated RBCs # Platelet Estimate ABG pH ABG pCO2 ABG pO2 ABG HCO3 ABG Total CO2 ABG O2 Saturation ABG Base Excess Sodium Potassium Chloride Carbon Dioxide Anion Gap BUN Creatinine GFR Calculation BUN/Creatinine Ratio Glucose POC Glucose 193 H 128 H 207 H Calculated Osmolality Calcium Magnesium 04/07/17 04/07/17 04/07/17 03:40 06:51 07:28 WBC 9.9 RBC 3.40 L Hgb 9.4 L Hct 30.0 L MCV 88.2 MCH 28 MCHC 31.3 L RDW 14.2 Plt Count 365 MPV 9.8 Neut % (Auto) 76.5 H Lymph % (Auto) 11.3 L [place] % (Auto) 10.3 Eos % (Auto) 1.2 Baso % (Auto) 0.2 Neut # (Auto) 7.6 H Lymph # (Auto) 1.1 L [place] # (Auto) 1.0 H Eos # (Auto) 0.1 Baso # (Auto) 0.0 Total Counted 100 Immature Gran % 0.5 Nucleated RBC % 0.0 Immature Gran # 0.05 Segmented Neutrophils 77 Band Neutrophils 2 Lymphocytes 10 L Monocytes 5 Eosinophils 1 Metamyelocytes 2 Myelocytes 3 Nucleated RBCs # 0.00 Platelet Estimate Normal ABG pH 7.514 H ABG pCO2 36.2 ABG pO2 117.0 H ABG HCO3 29.8 H ABG Total CO2 26.5 ABG O2 Saturation 99.0 ABG Base Excess 6.0 H Sodium 142 Potassium 4.2 Chloride 105 Carbon Dioxide 30 Anion Gap 11.2 BUN 34 H Creatinine 1.50 H GFR Calculation 32 BUN/Creatinine Ratio 22.00 H Glucose 133 H POC Glucose Calculated Osmolality 292.1 Calcium 8.5 Magnesium 2.0
--- NOTE | 2017-04-07 08:19 | XRay Report ---
XR chest 1V portable Indication: Intubated. Chest one view: Since yesterday, endotracheal tube, NG tube are both stable. Cardiomegaly again shown. Increasing interstitial edema of the lungs noted diffusely with worsening obscuration of both lung bases. Impression: Worsening fluid overload. PROCEDURE INTERPRETED AT [facility] DEPARTMENT OF RADIOLOGY Final Report Signed by: German Hankins M.D.
[2017-04-07] MEDS: FUROSEMIDE 40 MG/4 ML VIAL IV SCH ×2 (08:28→15:10)
[2017-04-07] MEDS: MULTIVITAMIN LIQUID (CENTRUM) 60 ML BOTTLE PO SCH (08:31)
[2017-04-07] MEDS: ASPIRIN CHEW 81 MG TABLET PO SCH (08:33)
[2017-04-07] MEDS: CARVEDILOL 12.5 MG TABLET PO SCH ×2 (08:33→20:06)
[2017-04-07] MEDS: POLYVINYL ALCOHOL 1.4% OPH SOLN 15 ML BOTTLE BOTH EYES SCH ×4 (08:33→20:06)
[2017-04-07] MEDS: OFLOXACIN 0.3% OPH SOLN 10 ML BOTTLE LEFT EYE SCH ×4 (08:34→20:06)
[2017-04-07] MEDS ORDERED: AZITHROMYCIN 250 MG TABLET PO SCH (09:00)
--- NOTE | 2017-04-07 12:13 | Hospitalist Progress Note ---
Assessment and Plan (1) Acute respiratory failure Status: Acute Assessment and plan: Improving with diuresis. Still plan to transfer to [facility] for valve replacement when extubated Current Visit: Yes (2) Congestive heart failure Status: Chronic Assessment and plan: due to MV and AV dysfunction continue Lasix and Coreg and added spironolactone Current Visit: No Qualifiers: Congestive heart failure type: combined Congestive heart failure chronicity : acute on chronic Qualified Code(s): I50.43 - Acute on chronic combined systolic (congestive) and diastolic (congestive) heart failure (3) Essential hypertension Status: Chronic Assessment and plan: continue Coreg 12.5 mg p.o. twice daily Current Visit: Yes (4) Acute renal failure superimposed on chronic kidney disease Status: Resolved Assessment and plan: Stable continue to monitor while on diuresis Current Visit: No Qualifiers: Chronic kidney disease stage: stage 3 (moderate) (5) Aortic stenosis Status: Chronic Assessment and plan: Plan to transfer to [facility] for valve replacement Current Visit: No (6) Mitral stenosis Status: Acute Assessment and plan: plan to tranfer to [facility] for valve replacement Current Visit: Yes (7) Leukocytosis Status: Acute Assessment and plan: Blood cultures 2 negative,WBC improving, stop zosyn no infections source Current Visit: Yes (8) Diabetes mellitus type 2 in obese Status: Chronic Assessment and plan: Patient currently is on glycerna, BS good Current Visit: Yes (9) Anemia Status: Acute Assessment and plan: Patient is a [employer]. Hgb improving avoid daily lab work Current Visit: Yes Hospitalist: Subjective Interval history: I spoke with her and gave him an update. I have spoke with Dr. Noble and Dr. Green in [place] wants her off the ventilator before considering valve surgery. Spoke with Dr. Marc about her case and he is hoping to get her extubated this weekend. Exam - Constitutional Vitals: Period Temp Pulse Resp BP Sys/Pina Pulse Ox Last 24 Hr 97.7 F-98.1 F 78-94 10 127-167/58-102 96-100 Exam: Heart Rate-[RRR] Lungs-[clear] GI-[+bs soft, NT] Ext-[no edema] Neuro following commands and sitting up in the chair. Looks great psych [normal mood and affect] General [no acute distress] Results - Labs CBC & BMP: 04/07/17 03:40 04/07/17 06:51 Lab Results: I have reviewed the past 24 hour labs - Diagnostic Findings Procedure: Chest x-ray: report reviewed by me (worsening edema )
[2017-04-07] MEDS: SPIRONOLACTONE 25 MG TABLET PO SCH ×2 (13:11→20:06)
[2017-04-07] MEDS: ATORVASTATIN 80 MG TABLET PO SCH (20:06)
[2017-04-08] MEDS: ALBUTEROL/IPRATROPIUM 3 ML NEB RESP TX SCH ×4 (00:30→19:28)
[2017-04-08 03:03] LABS: ABG Base Excess 9.4 MMOL/L (-2.5-2.5); ABG HCO3 31.9 MMOL/L (20-26); ABG Oxygen Saturation 98.2 % (95-100); ABG PCO2 35.3 MM HG (35-48); ABG PH 7.574 (7.35-7.45); ABG PO2 111.2 MM HG (80-95); Allen Test Positive; Pt O2 Delivery Device Ventilator
[2017-04-08] MEDS: PROPOFOL 1,000 MG/100 ML BOTTLE IV SCH (03:17)
[2017-04-08] MEDS: INSULIN REGULAR 100 UNIT/ML SUBCUT SCH (05:34)
[2017-04-08] MEDS: PANTOPRAZOLE 40 MG VIAL IV SCH (05:34)
--- NOTE | 2017-04-08 06:48 | Cardiology Progress Note ---
Assessment and Plan (1) Congestive heart failure Status: Chronic Assessment and plan: Primary cardiomyopathy from ischemia as well as valvular heart disease. Plan to extubate the patient treat medically give her some time to recover from this acute exacerbation and perform a dobutamine stress echo to assess whether the heart failure is from her double valve disease both of which appear to be moderate or her coronary artery disease. Current Visit: No Qualifiers: Congestive heart failure type: combined Congestive heart failure chronicity : acute on chronic Qualified Code(s): I50.43 - Acute on chronic combined systolic (congestive) and diastolic (congestive) heart failure (2) Coronary artery disease Status: Chronic Current Visit: No Qualifiers: Coronary Disease-Associated Artery/Lesion type: [place] artery [place] vs. transplanted heart: [place] heart Associated angina: without angina Qualified Code(s): I25.10 - Atherosclerotic heart disease of [place] coronary artery without angina pectoris (3) Aortic insufficiency Status: Chronic Current Visit: No Qualifiers: Cardiac valve disease etiology: nonrheumatic Qualified Code(s): I35.1 - Nonrheumatic aortic (valve) insufficiency (4) Mitral regurgitation Status: Chronic Current Visit: No Qualifiers: Cardiac valve disease etiology: nonrheumatic Qualified Code(s): I34.0 - Nonrheumatic mitral (valve) insufficiency (5) Biatrial enlargement Status: Chronic Current Visit: Yes (6) Anemia Status: Chronic Current Visit: Yes (7) Aortic stenosis Status: Chronic Current Visit: No (8) Mitral stenosis Status: Chronic Current Visit: Yes (9) Pulmonary edema Status: Resolved Current Visit: Yes (10) Respiratory failure Status: Acute Current Visit: Yes (11) Anemia Status: Acute Assessment and plan: Consider Epogen Current Visit: Yes Cardiology - PN: Subj Interval history: The patient looks quite good this morning. ABGs look good and she has apparently been doing good with mechanics and her weaning trials. She is awake and alert and answers close ended questions appropriately and follows commands. She denies any dyspnea or air hunger she denies any chest pain. Anticipate extubation later today. Exam (Progress Note) - Constitutional Vitals: Period Temp Pulse Resp BP Sys/Pina Pulse Ox Last 24 Hr 97.9 F-98.2 F 74-91 12-29 129-170/57-80 10-100 General appearance: normal weight - Eye Eye exam: Present: EOMI Pupils: Present: WESLY - ENT ENT exam: Present: normal exam - Neck Neck exam: Present: normal inspection - Respiratory Respiratory exam: Present: other (Tracheal noise) - Cardiovascular Cardiovascular exam: Present: regular rate and rhythm (Cardiac exam without much change.), other (No edema) - GI/Abdominal GI/Abdominal exam: Present: normal bowel sounds - Extremities Exam Extremities exam: Present: normal inspection - Neurological Exam Neurological exam: Present: alert, other (Answers close any questions) - Skin Skin exam: Present: normal color, warm, dry Result/EKG - Labs CBC & BMP: 04/07/17 03:40 04/07/17 06:51 Labs: Laboratory Results - last 24 hr 04/07/17 04/07/17 04/07/17 05:31 06:51 07:28 ABG pH 7.514 H ABG pCO2 36.2 ABG pO2 117.0 H ABG HCO3 29.8 H ABG Total CO2 26.5 ABG O2 Saturation 99.0 ABG Base Excess 6.0 H FiO2 Sodium 142 Potassium 4.2 Chloride 105 Carbon Dioxide 30 Anion Gap 11.2 BUN 34 H Creatinine 1.50 H GFR Calculation 32 BUN/Creatinine Ratio 22.00 H Glucose 133 H POC Glucose 149 H Calculated Osmolality 292.1 Calcium 8.5 Magnesium 2.0 04/07/17 04/07/17 04/08/17 11:54 18:11 02:50 ABG pH 7.574 H ABG pCO2 35.3 ABG pO2 111.2 H ABG HCO3 31.9 H ABG Total CO2 33.0 H ABG O2 Saturation 98.2 ABG Base Excess 9.4 H FiO2 35.00 Sodium Potassium Chloride Carbon Dioxide Anion Gap BUN Creatinine GFR Calculation BUN/Creatinine Ratio Glucose POC Glucose 197 H 206 H Calculated Osmolality Calcium Magnesium
--- NOTE | 2017-04-08 07:59 | Pulmonology Progress Note ---
Pulmonary - PN: Subj Interval history: The patient is a 76-year-old black lady that came in with congestive heart failure and is been on the ventilator. She does have valvular heart disease with a cardiomyopathy. She is likely going to need to surgery to repair her valves. She is doing better with weaning trials and is alert. She has been quite comfortable CPAP. She has diuresed fairly well and her weight is down. Her ABGs are stable and her chest x-ray is better. She looks like she can come off the ventilator today. She has very good mechanics. Exam (Progress Note) - Constitutional Vitals: Period Temp Pulse Resp BP Sys/Pina Pulse Ox Last 24 Hr 97.2 F-98.2 F 74-91 12-29 138-170/57-80 10-100 General appearance: normal weight, no acute distress - Head Head exam: Present: normal inspection, normocephalic - Eye Eye exam: Present: EOMI. Absent: scleral icterus - ENT ENT exam: Present: normal exam, other (ET tube is in good position) - Neck Neck exam: Present: normal inspection. Absent: lymphadenopathy, thyromegaly - Respiratory Respiratory exam: Present: rales (She has minimal crackles in the bases but fairly good air movement.). Absent: wheezes - Cardiovascular Cardiovascular exam: Present: regular rate and rhythm, systolic murmur (She does have a soft systolic murmur.). Absent: gallop, JVD - GI/Abdominal GI/Abdominal exam: Present: normal bowel sounds, soft. Absent: distended, guarding, rebound - Extremities Exam Extremities exam: Absent: calf tenderness, edema - Neurological Exam Neurological exam: Present: alert, oriented X3 - Psychiatric Psychiatric exam: Present: normal affect - Skin Skin exam: Present: warm, dry Results - Labs CBC & BMP: 04/07/17 03:40 04/07/17 06:51 Labs: PO2 is 111 with a PCO2 of 35 and a pH of 7.57 - Diagnostic Findings Procedure: Chest x-ray: image reviewed by me, report reviewed by me (Chest x- ray shows minimal changes in the bases.) Assessment and Plan (1) Congestive heart failure Status: Chronic Assessment and plan: The patient has been on the ventilator with congestive heart failure and is improved. She has been doing CPAP nicely and will try to extubate today. Current Visit: No Qualifiers: Congestive heart failure type: combined Congestive heart failure chronicity : acute on chronic Qualified Code(s): I50.43 - Acute on chronic combined systolic (congestive) and diastolic (congestive) heart failure (2) Essential hypertension Status: Chronic Assessment and plan: Her blood pressure and heart rate have been under good control. Current Visit: Yes (3) Mitral regurgitation Status: Chronic Assessment and plan: The patient has mitral valve disease. Current Visit: No Qualifiers: Cardiac valve disease etiology: nonrheumatic Qualified Code(s): I34.0 - Nonrheumatic mitral (valve) insufficiency (4) Acute renal failure superimposed on chronic kidney disease Status: Resolved Assessment and plan: The patient's creatinine is down to 1.5 and stable. Current Visit: No Qualifiers: Chronic kidney disease stage: stage 3 (moderate) (5) Aortic stenosis Status: Chronic Assessment and plan: The patient has aortic valve disease and may need surgery. Current Visit: No (6) Pulmonary edema Status: Resolved Assessment and plan: The patient came in with pulmonary edema and has been on the ventilator. She is doing better now. Current Visit: Yes (7) Respiratory failure Status: Acute Assessment and plan: Patient has been doing CPAP trials nicely and has adequate oxygenation. Her chest x-ray is better. Will try to extubate today. Current Visit: Yes (8) Diabetes mellitus Status: Chronic Assessment and plan: Her glucose is 206 this morning but she has been on tube feedings. Current Visit: Yes
[2017-04-08] MEDS: FUROSEMIDE 40 MG/4 ML VIAL IV SCH ×2 (08:10→17:09)
[2017-04-08] MEDS: CARVEDILOL 12.5 MG TABLET PO SCH ×2 (09:20→22:07)
[2017-04-08] MEDS: SPIRONOLACTONE 25 MG TABLET PO SCH ×2 (09:20→22:06)
[2017-04-08] MEDS: ASPIRIN CHEW 81 MG TABLET PO SCH (09:21)
[2017-04-08] MEDS: MULTIVITAMIN LIQUID (CENTRUM) 60 ML BOTTLE PO SCH (09:22)
[2017-04-08] MEDS: CLOTRIMAZOLE/BETAMETHASONE CREAM 15 GM TUBE TOP SCH ×3 (09:22→22:09)
[2017-04-08] MEDS: POLYVINYL ALCOHOL 1.4% OPH SOLN 15 ML BOTTLE BOTH EYES SCH ×4 (09:22→22:07)
[2017-04-08] MEDS: OFLOXACIN 0.3% OPH SOLN 10 ML BOTTLE LEFT EYE SCH ×4 (09:23→22:08)
--- NOTE | 2017-04-08 10:14 | XRay Report ---
Portable chest Date: 04/08/2017 Clinical history: Ventilator Comparison: 04/07/2017 Technique: Portable AP sitting chest Findings: Stable cardiomegaly and supportive devices. Very minimal reduction in the diffuse parenchymal findings in the lungs with fairly stable bilateral pleural effusions. The mediastinum and osseous structures are unchanged in appearance. Impression: The supportive devices remain in satisfactory position. Very minimally improved pulmonary edema/pneumonitis. PROCEDURE INTERPRETED AT [facility] DEPARTMENT OF RADIOLOGY Final Report Signed by: Dr. Rosa Hurtado
[2017-04-08] MEDS: INSULIN LISPRO 100 UNIT/ML SUBCUT SCH ×3 (12:02→21:32)
--- NOTE | 2017-04-08 14:01 | Hospitalist Progress Note ---
Assessment and Plan (1) Acute respiratory failure Status: Acute Assessment and plan: Extubated and doing well Current Visit: Yes (2) Congestive heart failure Status: Chronic Assessment and plan: due to MV and AV dysfunction continue Lasix, Coreg and spironolactone Current Visit: No Qualifiers: Congestive heart failure type: combined Congestive heart failure chronicity : acute on chronic Qualified Code(s): I50.43 - Acute on chronic combined systolic (congestive) and diastolic (congestive) heart failure (3) Essential hypertension Status: Chronic Assessment and plan: continue Coreg, lasix and spironolactone Current Visit: Yes (4) Acute renal failure superimposed on chronic kidney disease Status: Resolved Assessment and plan: Stable Current Visit: No Qualifiers: Chronic kidney disease stage: stage 3 (moderate) (5) Aortic stenosis Status: Chronic Assessment and plan: Plan valve replacement by Dr. Green Current Visit: No (6) Mitral stenosis Status: Chronic Assessment and plan: plan valve replacement by dr. Green Current Visit: Yes (7) Leukocytosis Status: Acute Assessment and plan: Blood cultures 2 negative Current Visit: Yes (8) Diabetes mellitus type 2 in obese Status: Chronic Assessment and plan: may need isc Current Visit: Yes (9) Anemia Status: Acute Assessment and plan: Patient is a Mu-ism. cbc in am Current Visit: Yes Hospitalist: Subjective Interval history: Patient looks great today. We have extubated her and she is doing well. We will start her on a diabetic diet. We have DC'd her NG. Exam - Constitutional Vitals: Period Temp Pulse Resp BP Sys/Pina Pulse Ox Last 24 Hr 97.2 F-98.2 F 74-104 12-32 138-168/57-110 10-100 Exam: Heart Rate-[RRR] Lungs-[clear] GI-[+bs soft, NT] Ext-[no edema] Neuro following commands psych [normal mood and affect] General [no acute distress] Results - Labs CBC & BMP: 04/07/17 03:40 04/07/17 06:51 Lab Results: I have reviewed the past 24 hour labs Labs: Blood cultures 2 negative - Diagnostic Findings Procedure: Chest x-ray: report reviewed by me (Improving pulmonary edema)
[2017-04-08] MEDS: ATORVASTATIN 80 MG TABLET PO SCH (22:06)
[2017-04-09] MEDS: ALBUTEROL/IPRATROPIUM 3 ML NEB RESP TX SCH ×4 (00:24→21:02)
[2017-04-09] MEDS: ZALEPLON 5 MG CAPSULE PO PRN ×2 (01:40→20:43)
[2017-04-09 03:41] LABS: Basophils % 0.2 % (0.0-0.8); Eosinophils # 0.1 10*3/uL (0.0-0.87); Eosinophils % 0.6 % (0.00-10.9); Hematocrit 35.5 VOL% (35.7-47.0); Hemoglobin 11.1 GM/DL (12.0-16.0); Immature Granulocytes % 0.7 %; Immature Granulocytes Absolute 0.13 #; Lymphocytes # 1.4 10*3/uL (1.4-4.0); Lymphocytes % 7.5 % (21.3-54.2); Mean Corpuscular HGB Conc 31.3 GM/DL (32-36); Mean Corpuscular Hemoglobin 28 PG (27-34); Mean Corpuscular Volume 88.5 FL (87-102); Mean Platelet Volume 9.5 FL (9.6-12.0); Monocytes # 1.2 10*3/uL (0.11-0.8); Monocytes % 6.5 % (1.7-12.7); Neutrophils # 16.1 10*3/uL (1.4-7.4); Neutrophils % 84.5 % (38.7-73.9); Platelet Count 373 T/CUMM (130-400); Red Blood Count 4.01 MC/CUMM (3.8-5.5); Red Cell Distribution Width 13.8 % (9.3-17.3)
[2017-04-09] MEDS: PANTOPRAZOLE 40 MG VIAL IV SCH (05:20)
[2017-04-09] MEDS: INSULIN LISPRO 100 UNIT/ML SUBCUT SCH ×4 (06:55→20:38)
--- NOTE | 2017-04-09 07:38 | Pulmonology Progress Note ---
Pulmonary - PN: Subj Interval history: The patient is a 76-year-old black lady that came in with congestive heart failure and is been on the ventilator. She does have valvular heart disease with a cardiomyopathy. She is likely going to need to surgery to repair her valves. She was doing well on weaning trials and yesterday we extubated her. She had a good night and is not that short of breath. She is sitting up in a chair this morning and looks quite comfortable. She is alert and talking and says she feels better. She is not having any chest pain and she feels like her shortness of breath is better. Her chest x-ray still shows bilateral pleural effusions but she is comfortable. Exam (Progress Note) - Constitutional Vitals: Period Temp Pulse Resp BP Sys/Pina Pulse Ox Last 24 Hr 97.0 F-97.7 F 84-104 13-37 140-186/61-110 90-100 Exam: General appearance: normal weight, no acute distress, she is sitting up in a chair and looks quite alert and comfortable. - Head Head exam: Present: normal inspection, normocephalic - Eye Eye exam: Present: EOMI. Absent: scleral icterus - ENT ENT exam: Present: normal exam - Neck Neck exam: Present: normal inspection. Absent: lymphadenopathy, thyromegaly - Respiratory Respiratory exam: Present: She has mildly diminished breath sounds in the bases with some minimal crackles. She is moving air well. - Cardiovascular Cardiovascular exam: Present: regular rate and rhythm, systolic murmur (She does have a soft systolic murmur.). Absent: gallop, JVD - GI/Abdominal GI/Abdominal exam: Present: normal bowel sounds, soft. Absent: distended, guarding, rebound - Extremities Exam Extremities exam: Absent: calf tenderness, edema, her legs have gone down nicely. - Neurological Exam Neurological exam: Present: alert, oriented X3, she is moving her extremities well. - Psychiatric Psychiatric exam: Present: normal affect - Skin Skin exam: Present: warm, dry Results - Labs CBC & BMP: 04/09/17 02:59 04/07/17 06:51 - Diagnostic Findings Procedure: Chest x-ray: image reviewed by me, report reviewed by me (Her chest x -ray shows cardiomegaly and small pleural effusions bilaterally.) Assessment and Plan (1) Congestive heart failure Status: Chronic Assessment and plan: The patient has been on the ventilator with congestive heart failure and is improved. She was extubated yesterday and her breathing is doing well. Her weight appears to be stable. Current Visit: No Qualifiers: Congestive heart failure type: combined Congestive heart failure chronicity : acute on chronic Qualified Code(s): I50.43 - Acute on chronic combined systolic (congestive) and diastolic (congestive) heart failure (2) Essential hypertension Status: Chronic Assessment and plan: Her blood pressure and heart rate have been under good control. She appears to be reasonably stable Current Visit: Yes (3) Mitral regurgitation Status: Chronic Assessment and plan: The patient has mitral valve disease. Current Visit: No Qualifiers: Cardiac valve disease etiology: nonrheumatic Qualified Code(s): I34.0 - Nonrheumatic mitral (valve) insufficiency (4) Acute renal failure superimposed on chronic kidney disease Status: Resolved Assessment and plan: The patient's creatinine is down to 1.5 and stable. We will continue to follow her renal function. Current Visit: No Qualifiers: Chronic kidney disease stage: stage 3 (moderate) (5) Aortic stenosis Status: Chronic Assessment and plan: The patient has aortic valve disease and may need surgery. Current Visit: No (6) Pulmonary edema Status: Resolved Assessment and plan: The patient came in with pulmonary edema and has been on the ventilator. She is cleared up fairly well and is doing well off the ventilator now. Current Visit: Yes (7) Respiratory failure Status: Acute Assessment and plan: Patient has been doing CPAP trials nicely and has adequate oxygenation. Her chest x-ray is better. She was extubated yesterday and has done well through the night. She is breathing comfortably. Current Visit: Yes (8) Diabetes mellitus Status: Chronic Assessment and plan: Her glucose is 133 this morning and she is starting a diet. Current Visit: Yes
--- NOTE | 2017-04-09 09:31 | XRay Report ---
Portable chest Date: 04/09/2017 Clinical history: Ventilator Comparison: 04/08/2017 Technique: Portable AP sitting chest Findings: Stable cardiomegaly with interval removal of the endotracheal tube and nasogastric tube. Expiratory chest with persistent diffuse parenchymal findings at the lung bases with moderate pleural effusions. Stable mediastinum and osseous structures. Impression: Removal of endotracheal tube and nasogastric tube. Limited expiratory chest with residual diffuse edema/infiltration/atelectasis and moderate pleural effusions. Lateral decubitus chest x-rays may be helpful to determine how much free fluid is present. PROCEDURE INTERPRETED AT [facility] DEPARTMENT OF RADIOLOGY Final Report Signed by: Dr. Rosa Hurtado
[2017-04-09] MEDS: ASPIRIN CHEW 81 MG TABLET PO SCH (09:33)
[2017-04-09] MEDS: CARVEDILOL 12.5 MG TABLET PO SCH (09:33)
[2017-04-09] MEDS: FUROSEMIDE 40 MG/4 ML VIAL IV SCH ×2 (09:33→15:44)
[2017-04-09] MEDS: SPIRONOLACTONE 25 MG TABLET PO SCH (09:33)
[2017-04-09] MEDS: MEROPENEM 1,000 MG in SODIUM CHLORIDE 0.9% 100 ML IV SCH ×2 (09:33→22:16)
[2017-04-09] MEDS: OFLOXACIN 0.3% OPH SOLN 10 ML BOTTLE LEFT EYE SCH ×4 (09:34→20:36)
[2017-04-09] MEDS: MULTIVITAMIN LIQUID (CENTRUM) 60 ML BOTTLE PO SCH (09:34)
[2017-04-09] MEDS: POLYVINYL ALCOHOL 1.4% OPH SOLN 15 ML BOTTLE BOTH EYES SCH ×4 (09:34→20:35)
[2017-04-09] MEDS: CLOTRIMAZOLE/BETAMETHASONE CREAM 15 GM TUBE TOP SCH ×2 (09:34→20:37)
--- NOTE | 2017-04-09 10:07 | Hospitalist Progress Note ---
Assessment and Plan (1) Acute respiratory failure Status: Acute Assessment and plan: Extubated yesterday and doing well, will move to telemetry today Current Visit: Yes (2) Congestive heart failure Status: Chronic Assessment and plan: due to MV and AV dysfunction continue Lasix, Coreg and spironolactone, need to review potassium today Current Visit: No Qualifiers: Congestive heart failure type: combined Congestive heart failure chronicity : acute on chronic Qualified Code(s): I50.43 - Acute on chronic combined systolic (congestive) and diastolic (congestive) heart failure (3) Essential hypertension Status: Chronic Assessment and plan: not controlled, increase coreg 25 mg po bid, start hydralazine Current Visit: Yes (4) Acute renal failure superimposed on chronic kidney disease Status: Resolved Assessment and plan: stat bmp Current Visit: No Qualifiers: Chronic kidney disease stage: stage 3 (moderate) (5) Aortic stenosis Status: Chronic Assessment and plan: Plan valve replacement by Dr. Green Current Visit: No (6) Mitral stenosis Status: Chronic Assessment and plan: plan valve replacement by dr. Green Current Visit: Yes (7) Leukocytosis Status: Acute Assessment and plan: Blood cultures 2 negative, sputum cx, restart abx, d/w Dr. Contreras, meropenem Current Visit: Yes (8) Diabetes mellitus type 2 in obese Status: Chronic Assessment and plan: hgb A1c 7.9, low dose glyburide started. Current Visit: Yes (9) Anemia Status: Acute Assessment and plan: Patient is a [employer]. improved without intervention Current Visit: Yes Hospitalist: Subjective Interval history: Patient still coughing up phlegm. She looks great today she is sitting up in a chair. She is stable to move to telemetry. I do believe she requires telemetry due to the severity of her valvular disease and her congestive heart failure. Discussed with Dr. Contreras and he agrees we should restart abx for now Exam - Constitutional Vitals: Period Temp Pulse Resp BP Sys/Pina Pulse Ox Last 24 Hr 97.0 F-97.7 F 87-102 18-37 140-186/61-107 94-100 Exam: Heart Rate-[RRR] Lungs-[rhonchi with wheezes at lung base] GI-[+bs soft, NT] Ext-[no edema] Neuro motor 5/5 but weak, alert and oriented times 3 psych [normal mood and affect] General [no acute distress] Results - Labs CBC & BMP: 04/09/17 02:59 04/07/17 06:51 Lab Results: I have reviewed the past 24 hour labs Labs: blood cx times 2 negative - Diagnostic Findings Procedure: Chest x-ray: report reviewed by me (bilateral atelectasis and edema at bases )
[2017-04-09 10:52] LABS: Calcium 8.7 MG/DL (8.5-10.1); Osmolality,Calculated 295.8 MOS/KG (273-304); Potassium 4.1 MMOL/L (3.5-5.1)
[2017-04-09 12:35] LABS: Apearance,Urine Slightly Hazy (Clear); Bilirubin,Urine Negative (Negative); Blood, Urine Negative (Negative); Glucose,Urine (UA) Negative (Negative); Hyaline Casts,Urine 2 /LPF (0-3); Ketones,Urine 5 mg/dL (Negative); Mucus,Urine Occasional /LPF (Occasional); Nitrite,Urine Negative (Negative); Protein,Urine 100 MG/DL; RBC,Urine <1 /HPF (0-4); Squamous Epithelial Cell,Urine Occasional /HPF (0-10); Urine Color Yellow (Yellow); Urine Specific Gravity 1.012 (1.001-1.035); Urine Urobilinogen < 2.0 EU/DL (0.2-1.0); WBC,Urine 1 /HPF (0-6)
[2017-04-09] MEDS: hydrALAZINE 25 MG TABLET PO SCH ×2 (15:17→20:39)
[2017-04-09] MEDS: glyBURIDE 2.5 MG TABLET PO SCH (16:50)
[2017-04-09] MEDS: CARVEDILOL 25 MG TABLET PO SCH (20:39)
[2017-04-09] MEDS: ATORVASTATIN 80 MG TABLET PO SCH (20:39)
[2017-04-10] MEDS: ALBUTEROL/IPRATROPIUM 3 ML NEB RESP TX SCH ×2 (00:49→07:19)
[2017-04-10] MEDS: PANTOPRAZOLE 40 MG VIAL IV SCH (04:42)
[2017-04-10 05:50] LABS: Calcium 8.6 MG/DL (8.5-10.1); Magnesium 2.1 MG/DL (1.8-2.4); Osmolality,Calculated 290.1 MOS/KG (273-304); Potassium 4.1 MMOL/L (3.5-5.1)
--- NOTE | 2017-04-10 07:38 | Pulmonology Progress Note ---
Pulmonary - PN: Subj Interval history: 76-year-old female has congestive heart failure due to valvular heart disease and cardiomyopathy. She looks a little better radiographically this morning. Her ABGs are improved. She is doing some brief CPAP. Dr. Pavon has seen her and has recommended that if she is to have repairs that would best be done percutaneously and that would involve transporting her to [facility]. At present she is not quite ready to be extubated. If she is to be moved she would be best removed while on the ventilator. If the plans are to move her next week and we may be able to get her weaned over the next couple of days. She is alert and calm this morning 04/07/2017 patient with severe valvular heart disease that needs percutaneous valve repairs. Not a good surgical candidate. Currently on ventilator for congestive heart failure. ABGs and chest x-ray are pending this morning. If they look okay we will do a CPAP trial in anticipation of extubation. Await word on when she is to go to [place] to coordinate this. If she is going today we would probably do best not to extubate her yet. 04/10/2017 patient was extubated over the weekend. Feeling much better. Requiring low flow nasal oxygen. Chest x-ray still looks a little wet. She still coughing some but she is not wheezing. Not getting up a lot of sputum. I will stop her bronchodilators. She does not have COPD. I am afraid that will lead to some arrhythmias. Oxygen saturations look good. Patient can be transferred to [place] anytime from pulmonary standpoint. Exam (Progress Note) - Constitutional Vitals: Period Temp Pulse Resp BP Sys/Pina Pulse Ox Last 24 Hr 97.7 F-99.6 F 18-93 18- 109-162/52-91 89-100 Exam: Patient is alert and calm vital signs normal. Pupils react to light. Now on nasal oxygen. Neck is supple no bruits. Chest reveals rales at the bases. Heart normal rate and rhythm with systolic and diastolic murmurs at the right base and left sternal border. Abdomen is soft nontender no masses. Bowel sounds present. Liver slightly enlarged. Extremities 1+ peripheral edema calves nontender. Results - Labs CBC & BMP: 04/09/17 02:59 04/10/17 04:24 Lab Results: I have reviewed the past 24 hour labs Assessment and Plan (1) Aortic valve stenosis Status: Acute Assessment and plan: She has aortic stenosis and insufficiency. Defer to cardiology. 04/06/2017 being evaluated for percutaneous repair. 04/07/2017 main cause of her heart failure. Arrangements being made for repair. 04/10/2017 plans being made for transfer to [place] for percutaneous repair. Current Visit: Yes (2) Mitral stenosis Status: Chronic Assessment and plan: Also apparently has mitral stenosis and insufficiency. Defer to cardiology 04/04/2017 cardiology and cardiovascular surgery managing. 04/10/2017 cardiovascular surgery addressing mitral stenosis as well. Current Visit: Yes (3) Pulmonary edema Status: Resolved Assessment and plan: Due to congestive heart failure. Currently on ventilator. Will adjust ventilator settings as required 04/06/2017 x-ray is a little better but she is still wet. Weight is down 2 kg. Creatinine stable at 1.7. 04/07/2017 chest x-ray is pending. If it looks clear we should be able to get her extubated. Will need to coordinate this with plans for transfer. If she is to go to [place] today we would do best not to extubate her yet 04/10/2017 yesterday's chest x-ray still a little wet, however patient looks a lot better clinically. Re-x-ray tomorrow. Current Visit: Yes (4) Respiratory failure Status: Acute Assessment and plan: ABGs acceptable. Start weaning once pulmonary edema is improved. 04/06/2017 ABGs much improved. Reducing settings. 04/07/2017 ABGs have been good. They are pending this morning. O2 sats 100%. Patient alert and calm when sedation is held. The cause of the respiratory failure is congestive heart failure. 04/10/2017 still requiring some oxygen but she is off the ventilator and seems comfortable. Current Visit: Yes (5) Congestive heart failure Status: Chronic Assessment and plan: Due to valvular heart disease both aortic and mitral, and systolic congestive heart failure due to decreased ejection fraction of 35% 04/06/2017 this is a little improved with medications. 04/07/2017 congestive heart failure is a little better. 04/10/2017 defer to cardiology. Current Visit: No Qualifiers: Congestive heart failure type: combined Congestive heart failure chronicity : acute on chronic Qualified Code(s): I50.43 - Acute on chronic combined systolic (congestive) and diastolic (congestive) heart failure (6) Mitral regurgitation Status: Chronic Assessment and plan: mitral regurgitation associated with mitral stenosis. Current Visit: No Qualifiers: Cardiac valve disease etiology: nonrheumatic Qualified Code(s): I34.0 - Nonrheumatic mitral (valve) insufficiency
[2017-04-10] MEDS: glyBURIDE 2.5 MG TABLET PO SCH ×2 (07:48→17:05)
[2017-04-10] MEDS: INSULIN LISPRO 100 UNIT/ML SUBCUT SCH ×4 (07:49→21:10)
[2017-04-10] MEDS: FUROSEMIDE 40 MG/4 ML VIAL IV SCH ×2 (07:52→15:31)
--- NOTE | 2017-04-10 08:48 | Cardiology Progress Note ---
<Samina Segura E - Last Filed: 04/10/17 08:27> Assessment and Plan - Time spent with patient Time spent with patient: Less than 30 minutes (1) Respiratory failure Status: Resolved Assessment and plan: See plan of care listed below. Current Visit: Yes (2) Congestive heart failure Status: Chronic Assessment and plan: See plan of care listed below. Current Visit: No Qualifiers: Congestive heart failure type: combined Congestive heart failure chronicity : acute on chronic Qualified Code(s): I50.43 - Acute on chronic combined systolic (congestive) and diastolic (congestive) heart failure (3) Coronary artery disease Status: Chronic Assessment and plan: See plan of care listed below. Current Visit: No Qualifiers: Coronary Disease-Associated Artery/Lesion type: [place] artery [place] vs. transplanted heart: [place] heart Associated angina: without angina Qualified Code(s): I25.10 - Atherosclerotic heart disease of [place] coronary artery without angina pectoris (4) Aortic insufficiency Status: Chronic Assessment and plan: See plan of care listed below. Current Visit: No Qualifiers: Cardiac valve disease etiology: nonrheumatic Qualified Code(s): I35.1 - Nonrheumatic aortic (valve) insufficiency (5) Essential hypertension Status: Chronic Assessment and plan: See plan of care listed below. Current Visit: Yes (6) Hyperlipidemia Status: Chronic Assessment and plan: See plan of care listed below. Current Visit: No Qualifiers: Hyperlipidemia type: pure hypercholesterolemia Qualified Code(s): E78.00 - Pure hypercholesterolemia, unspecified; E78.0 - Pure hypercholesterolemia (7) Chronic kidney disease (CKD) Status: Chronic Assessment and plan: See plan of care listed below. Current Visit: Yes Qualifiers: Chronic kidney disease stage: stage 4 (severe) Qualified Code(s): N18.4 - Chronic kidney disease, stage 4 (severe) (8) Diabetes mellitus Status: Chronic Assessment and plan: See plan of care listed below. Current Visit: Yes (9) Anemia Status: Chronic Assessment and plan: See plan of care listed below. Current Visit: Yes (10) Mitral regurgitation Status: Chronic Assessment and plan: See plan of care listed below. Current Visit: No Qualifiers: Cardiac valve disease etiology: nonrheumatic Qualified Code(s): I34.0 - Nonrheumatic mitral (valve) insufficiency Cardiology - PN: Subj Interval history: HEDIS ABSTRACTOR: DR. CRUZ Ms. Moscoso is a 76 year old female with a history of coronary artery disease, aortic insufficiency, mitral regurgitation, congestive heart failure, diabetes, hyperlipidemia, and hypertension. She is status post non-STEMI with three-vessel CAD (occluded ostial RCA, 70% calcific proximal LAD , 90% proximal circumflex) per left heart catheterization on 03/20/17. She has calcific mitral and aortic valve disease; she appears to have approximately 3+ and AR, but also has reduced leaflet motion of her mitral valve and elevated transvalvular gradient (10/25 median peak). Echocardiogram on 03/17/17 revealed depressed EF of 30%, mild LVH, grade 3 diastolic dysfunction. I saw the patient during her most recent admission and per prior discussions, it should be noted that Ms. Moscoso is a [employer] and is unwilling to take someone else's blood in transfusion. This certainly complicates the possibility of major CV Surgery. She is willing to consider taking a transfusion from her self at a later time. She was home for 3 days after being treated for approximately 2 weeks for CHF and N-STEMI and returned to the emergency room with complaints of chest pain and shortness of breath. She was intubated in the emergency department and required mechanical ventilation for several days. She has been seen by cardiothoracic surgery and is felt to be a prohibitive surgical risk. Dr. Noble had a long discussion with the patient and her family regarding possible treatment options. Echocardiogram was repeated on and revealed EF 40-45%, mild LVH, moderate aortic insufficiency, mild mitral insufficiency. She actually seems to have a better ejection fraction now and her valve disease did not seem severe as previously documented. Ms. Moscoso looks well today. She was extubated over the weekend and is now housed on the telemetry unit. This morning, she is sitting up on the side of the bed eating breakfast. Dr. Noble has discussed her case with Dr. Monroe at [facility] in [place]. He reviewed all of our studies and he agrees that this is likely moderate valve disease in both the mitral position from the stenosis standpoint and moderate /AI. This is most consistent with her most recent transthoracic echocardiogram. Is also noted that her ejection fraction has improved. This brings up the question of whether her heart failure is due to valvular heart disease or her underlying two-vessel coronary artery disease. Once she is stable is recommended that she undergo dobutamine stress echocardiography. This will let us know if revascularization is the best option with or without valve intervention. Assessment/plan: 1. Respiratory failure -Pulmonology is following. She has now been extubated and on O2 via NBP. From their standpoint, patient can be transferred to [place] at any time. 2. Congestive heart failure -patient was readmitted on 04/05/17 after being discharged 3 days prior with recurrent heart failure. 3. Coronary artery disease -continue aspirin, beta-hector, statin. Will avoid NO or ARB due to renal insufficiency. 4. Aortic insufficiency - Echocardiogram was repeated on 04/05/2017 and revealed EF 40-45%, mild LVH, moderate aortic insufficiency, mild mitral insufficiency. She actually seems to have a better ejection fraction now and her valve disease did not seem severe as previously documented. Will continue offloading as tolerated. Will anticipate patient undergoing Dobutamine stress echo in the near future. Will further discuss with Dr. Martínez and await his recommendations. 5. Hypertension -currently well controlled. We will continue to monitor and adjust accordingly. 6. Hyperlipidemia -continue lipid-lowering agent. 7. Acute on chronic renal failure -creatinine is around her baseline at 1.7. We will avoid any nephrotoxic agents. 8. Diabetes -she has been started on Accu-Cheks and sliding scale insulin. 9. Anemia -H&H stable at 11.1 and 35.5. 10. Mitral regurgitation - Echocardiogram was repeated on 04/05/2017 and revealed EF 40-45%, mild LVH, moderate aortic insufficiency, mild mitral insufficiency. She actually seems to have a better ejection fraction now and her valve disease did not seem severe as previously documented. Exam (Progress Note) - Constitutional Vitals: Period Temp Pulse Resp BP Sys/Pina Pulse Ox Last 24 Hr 97.7 F-99.6 F 18-93 18-26 109-152/52-91 89-100 Exam: General: Present: Appears Well, No Apparent Distress. Pleasant and cooperative. Appears comfortable. HEENT: Present: PERRL, Normocephaly, atraumatic. Mucus Membranes Moist. No jaundice noted. Conjunctiva moist and clear, sclerae anicteric Neck: Present: Supple Neck, Midline Trachea, No Masses, No tenderness Cardiac: Present: Regular Rate and Rhythm, Systolic Murmur Lungs: Present: Few bibasilar rales, otherwise Clear to auscultation bilaterally. Neuro: Present: Awake, alert, and oriented x3. Moves all extremities well without hemiparesis or paralysis. Grossly Intact. Absent: Resting Tremor, Essential Tremor Abdomen: Present: Soft, Active Bowel Sounds, No Masses, Non-Tender, nondistended. No abdominal bruit or thrill noted. Skin: Present: Clear. Absent: Rash, No skin breakdown. Back: Normal inspection, no vertebral tenderness. Musculoskeletal: Present: No Fluid Collection, No Pain, Normal Range of Motion Extremities: Present: Normal Gait, No Clubbing, No Cyanosis, Upper Extr. Pulses 2+, Lower Extr. Pulses 2+, 1+ edema to LLE, RLE s edema. Capillary refill less than 3 seconds. Result/EKG - Labs CBC & BMP: 04/09/17 02:59 04/10/17 04:24 Lab Results: I have reviewed the past 24 hour labs Labs: Laboratory Results - last 24 hr 04/09/17 04/09/17 04/09/17 07:45 11:55 12:00 Sodium 144 Potassium 4.1 Chloride 102 Carbon Dioxide 33 H Anion Gap 13.1 BUN 29 H Creatinine 1.20 H GFR Calculation 41 BUN/Creatinine Ratio 24.00 H Glucose 163 H POC Glucose 249 H Calculated Osmolality 295.8 Calcium 8.7 Magnesium Urine Color Yellow Urine Appearance Slightly hazy Urine pH 5.0 Ur Specific [place] 1.012 Urine Protein 100 Urine Glucose (UA) Negative Urine Ketones 5 Urine Blood Negative Urine Nitrate Negative Urine Bilirubin Negative Urine Urobilinogen < 2.0 H Urine Leukocytes Negative Urine RBC <1 Urine WBC 1 Ur Squamous Epith Cells Occasional Hyaline Casts 2 Urine Mucus Occasional Ur Culture Indicated? Not indicated 04/09/17 04/09/17 04/10/17 15:25 19:42 04:24 Sodium 142 Potassium 4.1 Chloride 101 Carbon Dioxide 29 Anion Gap 16.1 H BUN 32 H Creatinine 1.60 H GFR Calculation 29 BUN/Creatinine Ratio 20.00 Glucose 113 H POC Glucose 232 H 323 H Calculated Osmolality 290.1 Calcium 8.6 Magnesium 2.1 Urine Color Urine Appearance Urine pH Ur Specific [place] Urine Protein Urine Glucose (UA) Urine Ketones Urine Blood Urine Nitrate Urine Bilirubin Urine Urobilinogen Urine Leukocytes Urine RBC Urine WBC Ur Squamous Epith Cells Hyaline Casts Urine Mucus Ur Culture Indicated? 04/10/17 07:38 Sodium Potassium Chloride Carbon Dioxide Anion Gap BUN Creatinine GFR Calculation BUN/Creatinine Ratio Glucose POC Glucose 176 H Calculated Osmolality Calcium Magnesium Urine Color Urine Appearance Urine pH Ur Specific [place] Urine Protein Urine Glucose (UA) Urine Ketones Urine Blood Urine Nitrate Urine Bilirubin Urine Urobilinogen Urine Leukocytes Urine RBC Urine WBC Ur Squamous Epith Cells Hyaline Casts Urine Mucus Ur Culture Indicated? - EKG EKG results: interpreted by me, sinus rhythm <Jonh Martínez - Last Filed: 04/10/17 10:23> Cardiology - PN: Subj Interval history: Cardiology addendum Patient examined and chart reviewed and discussed with nurse Samina Segura NP. Sister Mannie and Luz Marina at bedside. Cardiac cath done March 20, 2017 showed 100% proximal right coronary artery, calcified 70% proximal LAD, and 90% circumflex. Echo Doppler 04/05 showed ejection fraction of 40% with moderate a.s./AI and mild MS and MR Type II diabetic Blood pressure 120/60 O2 sat 98 percent on 2 L Decreased breath sounds few crackles in the right base Regular rhythm with systolic ejection murmur upper sternal border. I cannot hear an AI. Loud bilateral carotid bruits Plan carotid duplex I will need to speak with about plan and potential transfer to [facility] Exam (Progress Note) - Constitutional Vitals: Period Temp Pulse Resp BP Sys/Pina Pulse Ox Last 24 Hr 97.7 F-99.6 F 18-93 16-26 109-151/52-91 89-100 Result/EKG - Labs CBC & BMP: 04/09/17 02:59 04/10/17 04:24 Labs: Laboratory Results - last 24 hr 04/09/17 04/09/17 04/09/17 07:45 11:55 12:00 Sodium 144 Potassium 4.1 Chloride 102 Carbon Dioxide 33 H Anion Gap 13.1 BUN 29 H Creatinine 1.20 H GFR Calculation 41 BUN/Creatinine Ratio 24.00 H Glucose 163 H POC Glucose 249 H Calculated Osmolality 295.8 Calcium 8.7 Magnesium Urine Color Yellow Urine Appearance Slightly hazy Urine pH 5.0 Ur Specific [place] 1.012 Urine Protein 100 Urine Glucose (UA) Negative Urine Ketones 5 Urine Blood Negative Urine Nitrate Negative Urine Bilirubin Negative Urine Urobilinogen < 2.0 H Urine Leukocytes Negative Urine RBC <1 Urine WBC 1 Ur Squamous Epith Cells Occasional Hyaline Casts 2 Urine Mucus Occasional Ur Culture Indicated? Not indicated 04/09/17 04/09/17 04/10/17 15:25 19:42 04:24 Sodium 142 Potassium 4.1 Chloride 101 Carbon Dioxide 29 Anion Gap 16.1 H BUN 32 H Creatinine 1.60 H GFR Calculation 29 BUN/Creatinine Ratio 20.00 Glucose 113 H POC Glucose 232 H 323 H Calculated Osmolality 290.1 Calcium 8.6 Magnesium 2.1 Urine Color Urine Appearance Urine pH Ur Specific [place] Urine Protein Urine Glucose (UA) Urine Ketones Urine Blood Urine Nitrate Urine Bilirubin Urine Urobilinogen Urine Leukocytes Urine RBC Urine WBC Ur Squamous Epith Cells Hyaline Casts Urine Mucus Ur Culture Indicated? 04/10/17 07:38 Sodium Potassium Chloride Carbon Dioxide Anion Gap BUN Creatinine GFR Calculation BUN/Creatinine Ratio Glucose POC Glucose 176 H Calculated Osmolality Calcium Magnesium Urine Color Urine Appearance Urine pH Ur Specific [place] Urine Protein Urine Glucose (UA) Urine Ketones Urine Blood Urine Nitrate Urine Bilirubin Urine Urobilinogen Urine Leukocytes Urine RBC Urine WBC Ur Squamous Epith Cells Hyaline Casts Urine Mucus Ur Culture Indicated?
[2017-04-10] MEDS: ASPIRIN CHEW 81 MG TABLET PO SCH (09:40)
[2017-04-10] MEDS: CARVEDILOL 25 MG TABLET PO SCH ×2 (09:40→21:12)
[2017-04-10] MEDS: hydrALAZINE 25 MG TABLET PO SCH ×3 (09:40→21:12)
[2017-04-10] MEDS: MEROPENEM 1,000 MG in SODIUM CHLORIDE 0.9% 100 ML IV SCH ×2 (09:41→21:08)
[2017-04-10] MEDS: POLYVINYL ALCOHOL 1.4% OPH SOLN 15 ML BOTTLE BOTH EYES SCH ×4 (09:45→20:35)
[2017-04-10] MEDS: OFLOXACIN 0.3% OPH SOLN 10 ML BOTTLE LEFT EYE SCH ×4 (09:46→20:38)
[2017-04-10] MEDS: MULTIVITAMIN LIQUID (CENTRUM) 60 ML BOTTLE PO SCH (09:49)
[2017-04-10] MEDS: CLOTRIMAZOLE/BETAMETHASONE CREAM 15 GM TUBE TOP SCH ×2 (09:49→20:41)
--- NOTE | 2017-04-10 12:22 | Hospitalist Progress Note ---
Assessment and Plan (1) Congestive heart failure Status: Chronic Assessment and plan: The patient continues on therapy for pulmonary edema due to coronary and valvular heart disease. The cardiology team is assessing options for surgical treatment. The patient continues on IV antibiotics to treat lung infection in the meantime. She is stable and improving slowly Current Visit: No Qualifiers: Congestive heart failure type: combined Congestive heart failure chronicity : acute on chronic Qualified Code(s): I50.43 - Acute on chronic combined systolic (congestive) and diastolic (congestive) heart failure (2) Essential hypertension Status: Chronic Current Visit: Yes (3) Coronary artery disease Status: Chronic Current Visit: No Qualifiers: Coronary Disease-Associated Artery/Lesion type: [place] artery [place] vs. transplanted heart: [place] heart Associated angina: without angina Qualified Code(s): I25.10 - Atherosclerotic heart disease of [place] coronary artery without angina pectoris (4) Aortic insufficiency Status: Chronic Current Visit: No Qualifiers: Cardiac valve disease etiology: nonrheumatic Qualified Code(s): I35.1 - Nonrheumatic aortic (valve) insufficiency (5) Mitral regurgitation Status: Chronic Current Visit: No Qualifiers: Cardiac valve disease etiology: nonrheumatic Qualified Code(s): I34.0 - Nonrheumatic mitral (valve) insufficiency Hospitalist: Subjective Interval history: Mrs. Moscoso is sitting up in chair today on the telemetry unit. She has not complained of chest pain. Her shortness of breath is improving. She has less cough today. Exam - Constitutional Vitals: Period Temp Pulse Resp BP Sys/Pina Pulse Ox Last 24 Hr 98 F-99.6 F 18-107 16-21 108-151/52-72 89-100 Exam: Constitutional System: Mild distress. No tremulousness. Head: Normocephalic, atraumatic. Ears, Nose and Throat System: No evidence of Otitis or Mastoiditis. No epistaxis or discharge Eyes System: Pupils equal, round, and reactive. Extraocular muscles intact. Neck: Supple, without adenopathy, No jugular venous distention. No thyromegaly , neck mass, or prior surgery apparent. Respiratory System: Chest few rhonchi in bilateral bases to auscultation. Cardiovascular System: Heart with regular rate and rhythm. No murmur. GI System: Abdomen soft, nontender. Normo active bowel sounds present. Musculoskeletal System: limbs with no pedal edema. Full distal pulses. Neurological System: No discernable sensory deficit. No aphasia Psychiatric System: Conversation is rational Results - Labs CBC & BMP: 04/09/17 02:59 04/10/17 04:24 Lab Results: I have reviewed the past 24 hour labs
--- NOTE | 2017-04-10 15:54 | Ultrasound Report ---
Exam: Carotid ultrasound Date: 04/10/2017 Comparison: None Technique: Duplex scans of the carotid and vertebral arteries using B-mode/[place] scale imaging and Doppler spectral analysis and color flow. Reason: Bilateral carotid bruit Findings: The right ICA measures 5.5 mm in diameter and the left ICA measures 4.6 mm in diameter. Color-flow documented in the visualized arteries. The peak systolic velocities are as follows: Right CCA: 80.7 cm/s Right ICA: 77.9 cm/s Right ECA: 54.2 cm/s Left CCA: 81.1 cm/s Left ICA: 59.6 cm/s Left ECA: 100.5 cm/s The peak systolic ICA/CCA velocity ratios are as follows: 1.0 on the right and 0.7 on the left. Antegrade flow is present in both vertebral arteries. Impression:[Less than 50% stenosis in both internal carotid arteries with heterogeneous plaque formation. Antegrade flow in both vertebral arteries.] The Society of Radiologists in Ultrasound consensus conference criteria was used. The Ultrasound images were captured and stored. PROCEDURE INTERPRETED AT [facility] DEPARTMENT OF RADIOLOGY Final Report Signed by: Dr. Rosa Hurtado
[2017-04-10] MEDS: ATORVASTATIN 80 MG TABLET PO SCH (21:12)
[2017-04-10] MEDS: ZALEPLON 5 MG CAPSULE PO PRN (21:20)
[2017-04-11] MEDS: PANTOPRAZOLE 40 MG VIAL IV SCH (05:15)
[2017-04-11 05:50] LABS: Basophils % 0.2 % (0.0-0.8); Eosinophils # 0.3 10*3/uL (0.0-0.87); Eosinophils % 1.9 % (0.00-10.9); Hematocrit 29.2 VOL% (35.7-47.0); Hemoglobin 9.5 GM/DL (12.0-16.0); Immature Granulocytes % 0.5 %; Immature Granulocytes Absolute 0.07 #; Lymphocytes # 2.3 10*3/uL (1.4-4.0); Lymphocytes % 17.2 % (21.3-54.2); Mean Corpuscular HGB Conc 32.5 GM/DL (32-36); Mean Corpuscular Hemoglobin 28 PG (27-34); Mean Corpuscular Volume 85.9 FL (87-102); Mean Platelet Volume 9.7 FL (9.6-12.0); Monocytes % 7.5 % (1.7-12.7); Neutrophils # 9.7 10*3/uL (1.4-7.4); Neutrophils % 72.7 % (38.7-73.9); Platelet Count 347 T/CUMM (130-400); Red Cell Distribution Width 13.6 % (9.3-17.3); White Blood Count 13.4 T/CUMM (4-12)
[2017-04-11 06:19] LABS: Calcium 8.7 MG/DL (8.5-10.1); Magnesium 2.2 MG/DL (1.8-2.4); Osmolality,Calculated 289.5 MOS/KG (273-304); Potassium 4.2 MMOL/L (3.5-5.1)
--- NOTE | 2017-04-11 08:03 | Pulmonology Progress Note ---
Pulmonary - PN: Subj Interval history: 76-year-old female has congestive heart failure due to valvular heart disease and cardiomyopathy. She looks a little better radiographically this morning. Her ABGs are improved. She is doing some brief CPAP. Dr. Pavon has seen her and has recommended that if she is to have repairs that would best be done percutaneously and that would involve transporting her to [facility]. At present she is not quite ready to be extubated. If she is to be moved she would be best removed while on the ventilator. If the plans are to move her next week and we may be able to get her weaned over the next couple of days. She is alert and calm this morning 04/07/2017 patient with severe valvular heart disease that needs percutaneous valve repairs. Not a good surgical candidate. Currently on ventilator for congestive heart failure. ABGs and chest x-ray are pending this morning. If they look okay we will do a CPAP trial in anticipation of extubation. Await word on when she is to go to [place] to coordinate this. If she is going today we would probably do best not to extubate her yet. 04/10/2017 patient was extubated over the weekend. Feeling much better. Requiring low flow nasal oxygen. Chest x-ray still looks a little wet. She still coughing some but she is not wheezing. Not getting up a lot of sputum. I will stop her bronchodilators. She does not have COPD. I am afraid that will lead to some arrhythmias. Oxygen saturations look good. Patient can be transferred to [place] anytime from pulmonary standpoint. 04/11/2017 patient doing much better off the ventilator. She has a small right pleural effusion, and slightly larger left pleural effusion. Oxygen saturations look good on nasal biprong's. Cardiology plans to do a dobutamine thallium to help differentiate whether coronary disease or valvular disease is causing her heart failure. She is stable from pulmonary standpoint. Exam (Progress Note) - Constitutional Vitals: Period Temp Pulse Resp BP Sys/Pina Pulse Ox Last 24 Hr 97.9 F-100.1 F 80-107 18-22 108-144/60-69 90-100 Exam: Patient is alert and calm vital signs normal. Pupils react to light. Wearing nasal oxygen. Neck is supple no bruits. Chest reveals rales at the bases. Heart normal rate and rhythm with systolic and diastolic murmurs at the right base and left sternal border. Abdomen is soft nontender no masses. Bowel sounds present. Liver slightly enlarged. Extremities 1+ peripheral edema calves nontender. Little change from yesterday. Results - Labs CBC & BMP: 04/11/17 05:15 04/11/17 05:15 Lab Results: I have reviewed the past 24 hour labs - Diagnostic Findings Procedure: Chest x-ray: image reviewed by me (Small left greater than right pleural effusions. Upper lung pratt fairly clear.) Assessment and Plan (1) Aortic valve stenosis Status: Acute Assessment and plan: She has aortic stenosis and insufficiency. Defer to cardiology. 04/06/2017 being evaluated for percutaneous repair. 04/07/2017 main cause of her heart failure. Arrangements being made for repair. 04/10/2017 plans being made for transfer to [place] for percutaneous repair. 04/11/2017 continues to be evaluated by cardiology and cardiac surgery. Current Visit: Yes (2) Mitral stenosis Status: Chronic Assessment and plan: Also apparently has mitral stenosis and insufficiency. Defer to cardiology 04/04/2017 cardiology and cardiovascular surgery managing. 04/10/2017 cardiovascular surgery addressing mitral stenosis as well. Current Visit: Yes (3) Pulmonary edema Status: Resolved Assessment and plan: Due to congestive heart failure. Currently on ventilator. Will adjust ventilator settings as required 04/06/2017 x-ray is a little better but she is still wet. Weight is down 2 kg. Creatinine stable at 1.7. 04/07/2017 chest x-ray is pending. If it looks clear we should be able to get her extubated. Will need to coordinate this with plans for transfer. If she is to go to [place] today we would do best not to extubate her yet 04/10/2017 yesterday's chest x-ray still a little wet, however patient looks a lot better clinically. Re-x-ray tomorrow. 04/11/2017 no [place] pulmonary edema. She does have bilateral pleural effusions. Still on IV Lasix. Current Visit: Yes (4) Respiratory failure Status: Resolved Assessment and plan: ABGs acceptable. Start weaning once pulmonary edema is improved. 04/06/2017 ABGs much improved. Reducing settings. 04/07/2017 ABGs have been good. They are pending this morning. O2 sats 100%. Patient alert and calm when sedation is held. The cause of the respiratory failure is congestive heart failure. 04/10/2017 still requiring some oxygen but she is off the ventilator and seems comfortable. 04/11/2017 oxygen saturations look good on nasal oxygen. O2 sat 95% on room air yesterday Current Visit: Yes (5) Congestive heart failure Status: Chronic Assessment and plan: Due to valvular heart disease both aortic and mitral, and systolic congestive heart failure due to decreased ejection fraction of 35% 04/06/2017 this is a little improved with medications. 04/07/2017 congestive heart failure is a little better. 04/10/2017 defer to cardiology. 04/11/2017 multifactorial. Will need dobutamine thallium. Current Visit: No Qualifiers: Congestive heart failure type: combined Congestive heart failure chronicity : acute on chronic Qualified Code(s): I50.43 - Acute on chronic combined systolic (congestive) and diastolic (congestive) heart failure (6) Mitral regurgitation Status: Chronic Assessment and plan: mitral regurgitation associated with mitral stenosis. Current Visit: No Qualifiers: Cardiac valve disease etiology: nonrheumatic Qualified Code(s): I34.0 - Nonrheumatic mitral (valve) insufficiency
[2017-04-11] MEDS: INSULIN LISPRO 100 UNIT/ML SUBCUT SCH ×4 (08:23→21:44)
[2017-04-11] MEDS: glyBURIDE 2.5 MG TABLET PO SCH ×2 (08:25→17:15)
[2017-04-11] MEDS: hydrALAZINE 25 MG TABLET PO SCH ×3 (08:25→20:58)
[2017-04-11] MEDS: CARVEDILOL 25 MG TABLET PO SCH ×2 (08:25→20:58)
[2017-04-11] MEDS: ASPIRIN CHEW 81 MG TABLET PO SCH (08:25)
--- NOTE | 2017-04-11 08:25 | XRay Report ---
XR chest 2V Indication: CHF Comparison: Chest x-ray dated April 09, 2017 Technique: Single frontal view of the chest. Findings: Heart remains obscured predominantly but appears prominent. Some minimal interval improved bilateral pulmonary consolidation suggesting improved pulmonary edema or pneumonia. There is continued moderate bilateral pleural fluid, greater on the left. Visualized osseous and surrounding soft tissue structures appear grossly unchanged. IMPRESSION: As above. PROCEDURE INTERPRETED AT [facility] DEPARTMENT OF RADIOLOGY Final Report Signed by: Dr Bernardo Damian
[2017-04-11] MEDS: MULTIVITAMIN LIQUID (CENTRUM) 60 ML BOTTLE PO SCH (08:28)
[2017-04-11] MEDS: POLYVINYL ALCOHOL 1.4% OPH SOLN 15 ML BOTTLE BOTH EYES SCH ×4 (08:30→20:59)
[2017-04-11] MEDS: OFLOXACIN 0.3% OPH SOLN 10 ML BOTTLE LEFT EYE SCH ×4 (08:30→20:59)
[2017-04-11] MEDS: CLOTRIMAZOLE/BETAMETHASONE CREAM 15 GM TUBE TOP SCH ×2 (08:31→20:58)
[2017-04-11] MEDS: FUROSEMIDE 40 MG/4 ML VIAL IV SCH ×2 (08:31→15:43)
[2017-04-11] MEDS: MEROPENEM 1,000 MG in SODIUM CHLORIDE 0.9% 100 ML IV SCH ×2 (08:42→20:58)
--- NOTE | 2017-04-11 10:50 | Cardiology Progress Note ---
<Samina Segura E - Last Filed: 04/11/17 10:43> Assessment and Plan - Time spent with patient Time spent with patient: Less than 30 minutes (1) Respiratory failure Status: Resolved Assessment and plan: See plan of care listed below. Current Visit: Yes (2) Congestive heart failure Status: Chronic Assessment and plan: See plan of care listed below. Current Visit: No Qualifiers: Congestive heart failure type: combined Congestive heart failure chronicity : acute on chronic Qualified Code(s): I50.43 - Acute on chronic combined systolic (congestive) and diastolic (congestive) heart failure (3) Coronary artery disease Status: Chronic Assessment and plan: See plan of care listed below. Current Visit: No Qualifiers: Coronary Disease-Associated Artery/Lesion type: lum[place] artery [place] vs. transplanted heart: lummi heart Associated angina: without angina Qualified Code(s): I25.10 - Atherosclerotic heart disease of lummi coronary artery without angina pectoris (4) Aortic insufficiency Status: Chronic Assessment and plan: See plan of care listed below. Current Visit: No Qualifiers: Cardiac valve disease etiology: nonrheumatic Qualified Code(s): I35.1 - Nonrheumatic aortic (valve) insufficiency (5) Essential hypertension Status: Chronic Assessment and plan: See plan of care listed below. Current Visit: Yes (6) Hyperlipidemia Status: Chronic Assessment and plan: See plan of care listed below. Current Visit: No Qualifiers: Hyperlipidemia type: pure hypercholesterolemia Qualified Code(s): E78.00 - Pure hypercholesterolemia, unspecified; E78.0 - Pure hypercholesterolemia (7) Chronic kidney disease (CKD) Status: Chronic Assessment and plan: See plan of care listed below. Current Visit: Yes Qualifiers: Chronic kidney disease stage: stage 4 (severe) Qualified Code(s): N18.4 - Chronic kidney disease, stage 4 (severe) (8) Diabetes mellitus Status: Chronic Assessment and plan: See plan of care listed below. Current Visit: Yes (9) Anemia Status: Chronic Assessment and plan: See plan of care listed below. Current Visit: Yes (10) Mitral regurgitation Status: Chronic Assessment and plan: See plan of care listed below. Current Visit: No Qualifiers: Cardiac valve disease etiology: nonrheumatic Qualified Code(s): I34.0 - Nonrheumatic mitral (valve) insufficiency Cardiology - PN: Subj Interval history: KEYSMITH: DR. CRUZ Ms. Msocoso is a 76 year old female with a history of coronary artery disease, aortic insufficiency, mitral regurgitation, congestive heart failure, diabetes, hyperlipidemia, and hypertension. She is status post non-STEMI with three-vessel CAD (occluded ostial RCA, 70% calcific proximal LAD , 90% proximal circumflex) per left heart catheterization on 03/20/17. She has calcific mitral and aortic valve disease; she appears to have approximately 3+ and AR, but also has reduced leaflet motion of her mitral valve and elevated transvalvular gradient (10/25 median peak). Echocardiogram on 03/17/17 revealed depressed EF of 30%, mild LVH, grade 3 diastolic dysfunction. I saw the patient during her most recent admission and per prior discussions, it should be noted that Ms. Moscoso is a Spiritism and is unwilling to take someone else's blood in transfusion. This certainly complicates the possibility of major CV Surgery. She is willing to consider taking a transfusion from her self at a later time. She was home for 3 days after being treated for approximately 2 weeks for CHF and N-STEMI and returned to the emergency room with complaints of chest pain and shortness of breath. She was intubated in the emergency department and required mechanical ventilation for several days. She has been seen by cardiothoracic surgery and is felt to be a prohibitive surgical risk. Dr. Noble had a long discussion with the patient and her family regarding possible treatment options. Echocardiogram was repeated on and revealed EF 40-45%, mild LVH, moderate aortic insufficiency, mild mitral insufficiency. She actually seems to have a better ejection fraction now and her valve disease did not seem severe as previously documented. Ms. Moscoso looks well today. She was extubated over the weekend and is now housed on the telemetry unit. This morning, she is sitting up on the side of the bed eating breakfast. Dr. Noble has discussed her case with Dr. Monroe at [facility] in [place]. He reviewed all of our studies and he agrees that this is likely moderate valve disease in both the mitral position from the stenosis standpoint and moderate /AI. This is most consistent with her most recent transthoracic echocardiogram. Is also noted that her ejection fraction has improved. This brings up the question of whether her heart failure is due to valvular heart disease or her underlying two-vessel coronary artery disease. It is recommended that she undergo dobutamine stress echocardiography. This will let us know if revascularization is the best option with or without valve intervention. However, I'm unsure this is able to be done in our echo department. She is overall much improved since admission. Will further discuss additional recommendations and possible transfer to [facility] in [place] with Dr. Martínez. Assessment/plan: 1. Respiratory failure -Pulmonology is following. She has now been extubated and on O2 via NBP. From their standpoint, patient can be transferred to [place] at any time. 2. Congestive heart failure -patient was readmitted on 04/05/17 after being discharged 3 days prior with recurrent heart failure. 3. Coronary artery disease -continue aspirin, beta-hector, statin. Will avoid NO or ARB due to renal insufficiency. 4. Aortic insufficiency - Echocardiogram was repeated on 04/05/2017 and revealed EF 40-45%, mild LVH, moderate aortic insufficiency, mild mitral insufficiency. She actually seems to have a better ejection fraction now and her valve disease did not seem severe as previously documented. Will continue offloading as tolerated. Will further discuss with Dr. Martínez and await his recommendations. 5. Hypertension -currently well controlled. We will continue to monitor and adjust accordingly. 6. Hyperlipidemia -continue lipid-lowering agent. 7. Acute on chronic renal failure -creatinine up to 1.9 today. We will avoid any nephrotoxic agents. 8. Diabetes -she has been started on Accu-Cheks and sliding scale insulin. 9. Anemia -H&H stable at 9.5 & 29.2. 10. Mitral regurgitation - Echocardiogram was repeated on 04/05/2017 and revealed EF 40-45%, mild LVH, moderate aortic insufficiency, mild mitral insufficiency. She actually seems to have a better ejection fraction now and her valve disease did not seem severe as previously documented. Exam (Progress Note) - Constitutional Vitals: Period Temp Pulse Resp BP Sys/Pina Pulse Ox Last 24 Hr 97.9 F-100.1 F 80-107 18-22 108-144/60-69 90-100 Exam: General: Present: Appears Well, No Apparent Distress. Pleasant and cooperative. Appears comfortable. HEENT: Present: PERRL, Normocephaly, atraumatic. Mucus Membranes Moist. No jaundice noted. Conjunctiva moist and clear, sclerae anicteric Neck: Present: Supple Neck, Midline Trachea, No Masses, No tenderness Cardiac: Present: Regular Rate and Rhythm, Systolic Murmur Lungs: Present: Few bibasilar rales, otherwise Clear to auscultation bilaterally. Neuro: Present: Awake, alert, and oriented x3. Moves all extremities well without hemiparesis or paralysis. Grossly Intact. Absent: Resting Tremor, Essential Tremor Abdomen: Present: Soft, Active Bowel Sounds, No Masses, Non-Tender, nondistended. No abdominal bruit or thrill noted. Skin: Present: Clear. Absent: Rash, No skin breakdown. Back: Normal inspection, no vertebral tenderness. Musculoskeletal: Present: No Fluid Collection, No Pain, Normal Range of Motion Extremities: Present: Normal Gait, No Clubbing, No Cyanosis, Upper Extr. Pulses 2+, Lower Extr. Pulses 2+, 1-2+ edema to LLE, RLE 1-2+ edema. Capillary refill less than 3 seconds. Result/EKG - Labs CBC & BMP: 04/11/17 05:15 04/11/17 05:15 Lab Results: I have reviewed the past 24 hour labs Labs: Laboratory Results - last 24 hr 04/10/17 04/10/17 04/10/17 11:57 16:05 20:42 WBC RBC Hgb Hct MCV MCH MCHC RDW Plt Count MPV Neut % (Auto) Lymph % (Auto) Cameron % (Auto) Eos % (Auto) Baso % (Auto) Neut # (Auto) Lymph # (Auto) Cameron # (Auto) Eos # (Auto) Baso # (Auto) Immature Gran % Nucleated RBC % Immature Gran # Nucleated RBCs # Sodium Potassium Chloride Carbon Dioxide Anion Gap BUN Creatinine GFR Calculation BUN/Creatinine Ratio Glucose POC Glucose 236 H 229 H 222 H Calculated Osmolality Calcium Magnesium 04/11/17 04/11/17 04/11/17 05:15 05:15 07:01 WBC 13.4 H RBC 3.40 L Hgb 9.5 L Hct 29.2 L MCV 85.9 L MCH 28 MCHC 32.5 RDW 13.6 Plt Count 347 MPV 9.7 Neut % (Auto) 72.7 Lymph % (Auto) 17.2 L Cameron % (Auto) 7.5 Eos % (Auto) 1.9 Baso % (Auto) 0.2 Neut # (Auto) 9.7 H Lymph # (Auto) 2.3 Cameron # (Auto) 1.0 H Eos # (Auto) 0.3 Baso # (Auto) 0.0 Immature Gran % 0.5 Nucleated RBC % 0.0 Immature Gran # 0.07 Nucleated RBCs # 0.00 Sodium 139 Potassium 4.2 Chloride 99 Carbon Dioxide 30 Anion Gap 14.2 BUN 37 H Creatinine 1.90 H GFR Calculation 24 BUN/Creatinine Ratio 19.00 Glucose 163 H POC Glucose 199 H Calculated Osmolality 289.5 Calcium 8.7 Magnesium 2.2 - EKG EKG results: interpreted by me, sinus rhythm <Jonh Martínez - Last Filed: 04/11/17 15:45> Cardiology - PN: Subj Interval history: Cardiology addendum. I have called Dr. Patel at the [facility] and have reviewed the case with him in detail. He will arrange for hospital to hospital transfer to [facility] tomorrow morning. Hemoglobin 9.5 hematocrit 29.2 MCV 86 BUN 37 creatinine 1.90 Spiritism. Refuses blood . Status post non-Q-wave SC with CHF about 3 weeks ago. Readmitted 3 days a with recurrent heart failure requiring intubation. Cardiac cath March 20, 2017 showed 1% proximal right coronary, calcified 70% proximal LAD, 90% circumflex Echo 621 shows ejection fraction in the 30-40% range with moderate a.s./AI and mild MS/MR Blood pressure 110/62 O2 sat 97% on 2 L Regular rhythm with systolic ejection upper right sternal border no AI heard Decreased breath sounds few crackles in the right base only No leg edema Plan Anticipate transfer to [facility] tomorrow morning Exam (Progress Note) - Constitutional Vitals: Period Temp Pulse Resp BP Sys/Pina Pulse Ox Last 24 Hr 97.9 F-100.1 F 76-86 18-22 106-144/55-69 95-100 Result/EKG - Labs CBC & BMP: 04/11/17 05:15 04/11/17 05:15 Labs: Laboratory Results - last 24 hr 04/10/17 04/10/17 04/11/17 16:05 20:42 05:15 WBC 13.4 H RBC 3.40 L Hgb 9.5 L Hct 29.2 L MCV 85.9 L MCH 28 MCHC 32.5 RDW 13.6 Plt Count 347 MPV 9.7 Neut % (Auto) 72.7 Lymph % (Auto) 17.2 L Cameron % (Auto) 7.5 Eos % (Auto) 1.9 Baso % (Auto) 0.2 Neut # (Auto) 9.7 H Lymph # (Auto) 2.3 Cameron # (Auto) 1.0 H Eos # (Auto) 0.3 Baso # (Auto) 0.0 Immature Gran % 0.5 Nucleated RBC % 0.0 Immature Gran # 0.07 Nucleated RBCs # 0.00 Sodium Potassium Chloride Carbon Dioxide Anion Gap BUN Creatinine GFR Calculation BUN/Creatinine Ratio Glucose POC Glucose 229 H 222 H Calculated Osmolality Calcium Magnesium 04/11/17 04/11/17 04/11/17 05:15 07:01 11:14 WBC RBC Hgb Hct MCV MCH MCHC RDW Plt Count MPV Neut % (Auto) Lymph % (Auto) Cameron % (Auto) Eos % (Auto) Baso % (Auto) Neut # (Auto) Lymph # (Auto) Cameron # (Auto) Eos # (Auto) Baso # (Auto) Immature Gran % Nucleated RBC % Immature Gran # Nucleated RBCs # Sodium 139 Potassium 4.2 Chloride 99 Carbon Dioxide 30 Anion Gap 14.2 BUN 37 H Creatinine 1.90 H GFR Calculation 24 BUN/Creatinine Ratio 19.00 Glucose 163 H POC Glucose 199 H 305 H Calculated Osmolality 289.5 Calcium 8.7 Magnesium 2.2
--- NOTE | 2017-04-11 11:49 | Hospitalist Progress Note ---
Assessment and Plan (1) Congestive heart failure Status: Chronic Assessment and plan: The patient continues on therapy for pulmonary edema due to coronary and valvular heart disease. The cardiology team is assessing options for surgical treatment. The patient continues on IV antibiotics to treat lung infection in the meantime. She is stable and improving slowly. The cardiology note today to discuss his possible surgical treatment at [facility]. Current Visit: No Qualifiers: Congestive heart failure type: combined Congestive heart failure chronicity : acute on chronic Qualified Code(s): I50.43 - Acute on chronic combined systolic (congestive) and diastolic (congestive) heart failure (2) Essential hypertension Status: Chronic Current Visit: Yes (3) Coronary artery disease Status: Chronic Current Visit: No Qualifiers: Coronary Disease-Associated Artery/Lesion type: [place] artery [place] vs. transplanted heart: [place] heart Associated angina: without angina Qualified Code(s): I25.10 - Atherosclerotic heart disease of [place] coronary artery without angina pectoris (4) Aortic insufficiency Status: Chronic Current Visit: No Qualifiers: Cardiac valve disease etiology: nonrheumatic Qualified Code(s): I35.1 - Nonrheumatic aortic (valve) insufficiency (5) Mitral regurgitation Status: Chronic Current Visit: No Qualifiers: Cardiac valve disease etiology: nonrheumatic Qualified Code(s): I34.0 - Nonrheumatic mitral (valve) insufficiency Hospitalist: Subjective Interval history: The patient is resting quietly in her room today. The patient states that she had a discussion with Dr. Pavon about going to [place]. Exam - Constitutional Vitals: Period Temp Pulse Resp BP Sys/Pina Pulse Ox Last 24 Hr 97.9 F-100.1 F 80-107 18-22 108-144/60-69 90-100 Exam: Constitutional System: Mild distress. No tremulousness. Head: Normocephalic, atraumatic. Ears, Nose and Throat System: No evidence of Otitis or Mastoiditis. No epistaxis or discharge Eyes System: Pupils equal, round, and reactive. Extraocular muscles intact. Neck: Supple, without adenopathy, No jugular venous distention. No thyromegaly , neck mass, or prior surgery apparent. Respiratory System: Chest few rhonchi in bilateral bases to auscultation. Cardiovascular System: Heart with regular rate and rhythm. No murmur. GI System: Abdomen soft, nontender. Normo active bowel sounds present. Musculoskeletal System: limbs with no pedal edema. Full distal pulses. Neurological System: No discernable sensory deficit. No aphasia Psychiatric System: Conversation is rational Results - Labs CBC & BMP: 04/11/17 05:15 04/11/17 05:15 Lab Results: I have reviewed the past 24 hour labs
[2017-04-11] MEDS: ZALEPLON 5 MG CAPSULE PO PRN (20:58)
[2017-04-11] MEDS: ATORVASTATIN 80 MG TABLET PO SCH (20:59)
[2017-04-12 04:20] LABS: Basophils % 0.1 % (0.0-0.8); Eosinophils # 0.2 10*3/uL (0.0-0.87); Eosinophils % 2.1 % (0.00-10.9); Hematocrit 28.6 VOL% (35.7-47.0); Hemoglobin 9.2 GM/DL (12.0-16.0); Immature Granulocytes % 0.4 %; Immature Granulocytes Absolute 0.04 #; Lymphocytes # 1.4 10*3/uL (1.4-4.0); Lymphocytes % 13.4 % (21.3-54.2); Mean Corpuscular HGB Conc 32.2 GM/DL (32-36); Mean Corpuscular Hemoglobin 28 PG (27-34); Mean Corpuscular Volume 87.2 FL (87-102); Mean Platelet Volume 10.5 FL (9.6-12.0); Monocytes % 10.2 % (1.7-12.7); Neutrophils # 7.6 10*3/uL (1.4-7.4); Neutrophils % 73.8 % (38.7-73.9); Platelet Count 244 T/CUMM (130-400); Red Blood Count 3.28 MC/CUMM (3.8-5.5); Red Cell Distribution Width 13.6 % (9.3-17.3); White Blood Count 10.2 T/CUMM (4-12)
[2017-04-12 04:45] LABS: Calcium 8.7 MG/DL (8.5-10.1); Magnesium 2.4 MG/DL (1.8-2.4); Osmolality,Calculated 286.5 MOS/KG (273-304)
[2017-04-12 04:51] LABS: Hypochromasia 1+; Platelet Estimate Normal
[2017-04-12] MEDS: PANTOPRAZOLE 40 MG VIAL IV SCH (05:58)
--- NOTE | 2017-04-12 07:48 | Pulmonology Progress Note ---
Pulmonary - PN: Subj Interval history: 76-year-old female has congestive heart failure due to valvular heart disease and cardiomyopathy. She looks a little better radiographically this morning. Her ABGs are improved. She is doing some brief CPAP. Dr. Pavno has seen her and has recommended that if she is to have repairs that would best be done percutaneously and that would involve transporting her to [facility]. At present she is not quite ready to be extubated. If she is to be moved she would be best removed while on the ventilator. If the plans are to move her next week and we may be able to get her weaned over the next couple of days. She is alert and calm this morning 04/07/2017 patient with severe valvular heart disease that needs percutaneous valve repairs. Not a good surgical candidate. Currently on ventilator for congestive heart failure. ABGs and chest x-ray are pending this morning. If they look okay we will do a CPAP trial in anticipation of extubation. Await word on when she is to go to [place] to coordinate this. If she is going today we would probably do best not to extubate her yet. 04/10/2017 patient was extubated over the weekend. Feeling much better. Requiring low flow nasal oxygen. Chest x-ray still looks a little wet. She still coughing some but she is not wheezing. Not getting up a lot of sputum. I will stop her bronchodilators. She does not have COPD. I am afraid that will lead to some arrhythmias. Oxygen saturations look good. Patient can be transferred to [place] anytime from pulmonary standpoint. 04/11/2017 patient doing much better off the ventilator. She has a small right pleural effusion, and slightly larger left pleural effusion. Oxygen saturations look good on nasal biprong's. Cardiology plans to do a dobutamine thallium to help differentiate whether coronary disease or valvular disease is causing her heart failure. She is stable from pulmonary standpoint. 04/12/2017 patient ambulating in room off oxygen. O2 sat on 1 L is 94%. I think she would do best to keep oxygen on during transport to [place] today however. She still has modest bilateral pleural effusions. Her creatinine is up to 2.0. I do not think we should try to diurese her any further at this point. Exam (Progress Note) - Constitutional Vitals: Period Temp Pulse Resp BP Sys/Pina Pulse Ox Last 24 Hr 98.1 F-99.4 F 75-86 16-20 106-161/55-70 94-98 Exam: Patient is alert and calm vital signs normal. Pupils react to light. Wearing nasal oxygen. Neck is supple no bruits. Chest reveals rales at the bases. Heart normal rate and rhythm with systolic and diastolic murmurs at the right base and left sternal border. Abdomen is soft nontender no masses. Bowel sounds present. Liver slightly enlarged. Extremities 1+ peripheral edema calves nontender. Results - Labs CBC & BMP: 04/12/17 02:39 04/12/17 02:39 Lab Results: I have reviewed the past 24 hour labs Assessment and Plan (1) Aortic valve stenosis Status: Acute Assessment and plan: She has aortic stenosis and insufficiency. Defer to cardiology. 04/06/2017 being evaluated for percutaneous repair. 04/07/2017 main cause of her heart failure. Arrangements being made for repair. 04/10/2017 plans being made for transfer to [place] for percutaneous repair. 04/11/2017 continues to be evaluated by cardiology and cardiac surgery. 04/12/2017 patient being transported to [place] for percutaneous repair Current Visit: Yes (2) Mitral stenosis Status: Chronic Assessment and plan: Also apparently has mitral stenosis and insufficiency. Defer to cardiology 04/04/2017 cardiology and cardiovascular surgery managing. 04/10/2017 cardiovascular surgery addressing mitral stenosis as well. 04/12/2017 this also been addressed by cardiovascular surgery Current Visit: Yes (3) Pulmonary edema Status: Resolved Assessment and plan: Due to congestive heart failure. Currently on ventilator. Will adjust ventilator settings as required 04/06/2017 x-ray is a little better but she is still wet. Weight is down 2 kg. Creatinine stable at 1.7. 04/07/2017 chest x-ray is pending. If it looks clear we should be able to get her extubated. Will need to coordinate this with plans for transfer. If she is to go to [place] today we would do best not to extubate her yet 04/10/2017 yesterday's chest x-ray still a little wet, however patient looks a lot better clinically. Re-x-ray tomorrow. 04/11/2017 no german pulmonary edema. She does have bilateral pleural effusions. Still on IV Lasix. 04/12/2017 pulmonary edema has resolved but she does still have residual bilateral pleural effusions. Getting IV Lasix. Will not step up diuretics because her creatinine has risen to 2.0. Likely the pleural effusions will not totally resolve until she gets valvular intervention. Current Visit: Yes (4) Respiratory failure Status: Resolved Assessment and plan: ABGs acceptable. Start weaning once pulmonary edema is improved. 04/06/2017 ABGs much improved. Reducing settings. 04/07/2017 ABGs have been good. They are pending this morning. O2 sats 100%. Patient alert and calm when sedation is held. The cause of the respiratory failure is congestive heart failure. 04/10/2017 still requiring some oxygen but she is off the ventilator and seems comfortable. 04/11/2017 oxygen saturations look good on nasal oxygen. O2 sat 95% on room air yesterday 04/12/2017 this has resolved. She is on low flow oxygen, and would do best to stay on that for transfer. May not need it long-term however. Current Visit: Yes (5) Congestive heart failure Status: Chronic Assessment and plan: Due to valvular heart disease both aortic and mitral, and systolic congestive heart failure due to decreased ejection fraction of 35% 04/06/2017 this is a little improved with medications. 04/07/2017 congestive heart failure is a little better. 04/10/2017 defer to cardiology. 04/11/2017 multifactorial. Will need dobutamine thallium. 04/12/2017 heart failure fairly well controlled. Apparently she will be going to [place] today rather than getting the dobutamine test Current Visit: No Qualifiers: Congestive heart failure type: combined Congestive heart failure chronicity : acute on chronic Qualified Code(s): I50.43 - Acute on chronic combined systolic (congestive) and diastolic (congestive) heart failure (6) Mitral regurgitation Status: Chronic Assessment and plan: mitral regurgitation associated with mitral stenosis. Current Visit: No Qualifiers: Cardiac valve disease etiology: nonrheumatic Qualified Code(s): I34.0 - Nonrheumatic mitral (valve) insufficiency
[2017-04-12 08:00] VITALS: BP 138/64
--- NOTE | 2017-04-12 09:20 | Discharge Summary ---
Hospital Course - Hospital Course Hospital Course: The patient was admitted to the hospital with chest discomfort and shortness of breath. The patient was found to have systolic congestive heart failure with valvular heart disease. The patient had cardiology, CV surgery, and pulmonary consultations. The patient had appropriate diuresis and afterload reduction. The patient was treated for lung infection but found not to have COPD. The cardiology team arranged for transfer to [facility] in [place] for surgical evaluation. The patient is stable and ready for transport to [place] today. The patient remains optimistic concerning surgical therapy of her disease. On the date of discharge, chest is clear and abdomen soft. Examination, preparation of discharge arrangements, and documentation required 32 minutes on the date of discharge. - Time spent with patient Time with patient DS: Greater than 30 minutes Diagnosis - Discharge Diagnosis (1) Congestive heart failure Status: Chronic (2) Essential hypertension Status: Chronic (3) Coronary artery disease Status: Chronic (4) Aortic insufficiency Status: Chronic (5) Mitral regurgitation Status: Chronic Discharge Plan - Discharge Data Disposition: Disch/[facility]fer-[facility] Condition at Discharge: Stable Discharge Diet: heart healthy Activity: as per physical therapy - Discharge Medications New Dextrose 50% [D50] 25 gm IV PRN PRN vial PRN Reason: Hypoglycemia with IV access Glucagon 1 mg IM PRN PRN vial PRN Reason: Hypoglycemia w/o IV access glyBURIDE [Diabeta] 2.5 mg PO BID W/MEALS tablet guaiFENesin/DM LIQUID [Robitussin Dm] 10 ml PO Q6H PRN PRN Reason: Cough Insulin Lispro [HumaLOG] See Protocol SUBCUT ACHS unit Morphine Inj 2 mg IV Q4H PRN syringe PRN Reason: Pain Severe (8-10) Pantoprazole Inj [Protonix Inj] 40 mg IV Q24H vial Spironolactone [Aldactone] 12.5 mg PO BID tablet Zaleplon [Sonata] 5 mg PO BEDTIME PRN capsule PRN Reason: Sleep Albuterol Neb [Proventil Neb] 2.5 mg RESP TX RT Q1H PRN PRN Reason: Shortness Of Breath/Wheezing Aspirin Chew Tab 81 mg PO DAILY tablet hydrALAZINE TAB [Apresoline Tab] 25 mg PO TID tablet Multivitamin Liquid (Centrum) [Centrum Liquid] 15 ml PO DAILY bottle Continue Ofloxacin 0.3% Oph Soln [Ocuflox 0.3% Oph Soln] 1 drop LEFT EYE QID Clotrimazole/Betamethasone Dip [Clotrimazole/Betamethasone Cream] 1 applic TOP BID Polyvinyl Alcohol [Artificial Tears] 15 ml BOTH EYES QID Carvedilol [Coreg] 12.5 mg PO BID #120 tablet Furosemide Tab [Lasix Tab] 40 mg PO DAILY #60 tablet Atorvastatin [Lipitor] 80 mg PO BEDTIME #60 tablet Discontinued Nitroglycerin Sl Tab [Nitrostat] 0.4 mg SL Q5M PRN PRN Reason: Chest Pain Ergocalciferol (Vitamin D2) [Vitamin D2] 50,000 unit PO Q7D Multivitamin (Centrum) [Centrum Tab] 1 tablet PO DAILY Bisacodyl Tab [Dulcolax Tab] 10 mg PO DAILY PRN tablet PRN Reason: Constipation Ferrous Sulfate ER Tab [Slow Fe] 140 mg PO TID #90 tablet glipiZIDE [Glucotrol] 5 mg PO BIDAC #60 tablet hydrALAZINE TAB [Apresoline Tab] 25 mg PO TID #90 tablet Isosorbide Dinitrate [Isordil] 20 mg PO TID #90 tablet Propylene Glycol/Peg 400 [Systane Gel Drops] 1 drop BOTH EYES QID PRN PRN Reason: Dry Eyes Aspirin EC Tab 81 mg PO DAILY tablet Cyclobenzaprine [Flexeril] 10 mg PO TID PRN #30 tablet PRN Reason: leg cramps sitaGLIPtin [Januvia] 50 mg PO BEDTIME #30 tablet - Follow Up or Referral - Forms/Instructions Exam - Constitutional Vitals: Period Temp Pulse Resp BP Sys/Pina Pulse Ox Last 24 Hr 98.1 F-99.4 F 61-86 16-20 106-161/55-70 94-98 Discharge Results Procedures and tests throughout hospitalization: Pending Orders 04/09/17 07:54 Blood Culture Stat 04/09/17 10:08 Sputum Culture and Gram Stain Stat 04/13/17 04:00 BMP w/ Mg [Basic Metabolic Panel w/Mg] IN AM CBC [Comp Blood Count Auto Diff] IN AM 04/14/17 04:00 BMP w/ Mg [Basic Metabolic Panel w/Mg] IN AM CBC [Comp Blood Count Auto Diff] IN AM Labs on day of discharge: Labs from last 24 hours 04/12/17 04/12/17 04/12/17 07:28 02:39 02:39 WBC 10.2 RBC 3.28 L Hgb 9.2 L Hct 28.6 L MCV 87.2 MCH 28 MCHC 32.2 RDW 13.6 Plt Count 244 D MPV 10.5 Neut % (Auto) 73.8 Lymph % (Auto) 13.4 L [place] % (Auto) 10.2 Eos % (Auto) 2.1 Baso % (Auto) 0.1 Neut # (Auto) 7.6 H Lymph # (Auto) 1.4 [place] # (Auto) 1.0 H Eos # (Auto) 0.2 Baso # (Auto) 0.0 Immature Gran % 0.4 Nucleated RBC % 0.0 Immature Gran # 0.04 Nucleated RBCs # 0.00 Platelet Estimate Normal Hypochromasia 1+ Sodium 139 Potassium 4.0 Chloride 101 Carbon Dioxide 26 Anion Gap 16.0 H BUN 38 H Creatinine 2.00 H GFR Calculation 22 BUN/Creatinine Ratio 19.00 Glucose 122 H POC Glucose 175 H Calculated Osmolality 286.5 Calcium 8.7 Magnesium 2.4 04/11/17 04/11/17 04/11/17 20:57 16:04 11:14 WBC RBC Hgb Hct MCV MCH MCHC RDW Plt Count MPV Neut % (Auto) Lymph % (Auto) [place] % (Auto) Eos % (Auto) Baso % (Auto) Neut # (Auto) Lymph # (Auto) [place] # (Auto) Eos # (Auto) Baso # (Auto) Immature Gran % Nucleated RBC % Immature Gran # Nucleated RBCs # Platelet Estimate Hypochromasia Sodium Potassium Chloride Carbon Dioxide Anion Gap BUN Creatinine GFR Calculation BUN/Creatinine Ratio Glucose POC Glucose 208 H 104 305 H Calculated Osmolality Calcium Magnesium Preliminary micro results at discharge 04/09/17 07:54 Blood Culture - Preliminary Blood No growth at 3 days 04/09/17 07:54 Blood Culture - Preliminary Blood No growth at 3 days DS: Provider Date of admission: 04/05/17 02:47 Primary care physician: Adam Juárez MD Attending physician on admission: German Aldana MD Consults: 04/05/17 02:54 Consult to Physician [CONS] Routine Comment: Consulting Provider: Cardiology - [facility] Consult to Specialist Group: Cardiology When should Consulting Provider be notified: In am Person Notified: joanne @ [facility] Date Notified: 04/05/17 Time Notified: 08:01 Consult to Physician [CONS] Routine Comment: vent Consulting Provider: Mike Marc Consulting Provider Notified: Yes Consult to Specialist Group: Pulmonology When should Consulting Provider be notified: In am Person Notified: dr marc Date Notified: 04/05/17 Consult Notification Comment: saw pt on rounds earlier , will notify office as well 04/05/17 04:54 Consult to Dietitian [CONS] Routine Reason for Dietitian: Other 04/05/17 08:31 Consult to Dietitian [CONS] Routine Reason for Dietitian: TF-Initiate/Manage 04/10/17 10:46 Consult to Physical Therapy [CONS] Routine Reason for Physical Therapy: Evaluate and Treat Discharging clinician: Aime Irizarry MD
--- NOTE | 2017-04-12 09:36 | Cardiology Progress Note ---
<Samina Segura E - Last Filed: 04/12/17 09:30> Assessment and Plan - Time spent with patient Time spent with patient: Less than 30 minutes (1) Respiratory failure Status: Resolved Assessment and plan: See plan of care listed below. Current Visit: Yes (2) Congestive heart failure Status: Chronic Assessment and plan: See plan of care listed below. Current Visit: No Qualifiers: Congestive heart failure type: combined Congestive heart failure chronicity : acute on chronic Qualified Code(s): I50.43 - Acute on chronic combined systolic (congestive) and diastolic (congestive) heart failure (3) Coronary artery disease Status: Chronic Assessment and plan: See plan of care listed below. Current Visit: No Qualifiers: Coronary Disease-Associated Artery/Lesion type: [place] artery [place] vs. transplanted heart: [place] heart Associated angina: without angina Qualified Code(s): I25.10 - Atherosclerotic heart disease of [place] coronary artery without angina pectoris (4) Aortic insufficiency Status: Chronic Assessment and plan: See plan of care listed below. Current Visit: No Qualifiers: Cardiac valve disease etiology: nonrheumatic Qualified Code(s): I35.1 - Nonrheumatic aortic (valve) insufficiency (5) Essential hypertension Status: Chronic Assessment and plan: See plan of care listed below. Current Visit: Yes (6) Hyperlipidemia Status: Chronic Assessment and plan: See plan of care listed below. Current Visit: No Qualifiers: Hyperlipidemia type: pure hypercholesterolemia Qualified Code(s): E78.00 - Pure hypercholesterolemia, unspecified; E78.0 - Pure hypercholesterolemia (7) Chronic kidney disease (CKD) Status: Chronic Assessment and plan: See plan of care listed below. Current Visit: Yes Qualifiers: Chronic kidney disease stage: stage 4 (severe) Qualified Code(s): N18.4 - Chronic kidney disease, stage 4 (severe) (8) Diabetes mellitus Status: Chronic Assessment and plan: See plan of care listed below. Current Visit: Yes (9) Anemia Status: Chronic Assessment and plan: See plan of care listed below. Current Visit: Yes (10) Mitral regurgitation Status: Chronic Assessment and plan: See plan of care listed below. Current Visit: No Qualifiers: Cardiac valve disease etiology: nonrheumatic Qualified Code(s): I34.0 - Nonrheumatic mitral (valve) insufficiency Cardiology - PN: Subj Interval history: SAMPLER PICKUP: DR. CRUZ Ms. Moscoso is a 76 year old female with a history of coronary artery disease, aortic insufficiency, mitral regurgitation, congestive heart failure, diabetes, hyperlipidemia, and hypertension. She is status post non-STEMI with three-vessel CAD (occluded ostial RCA, 70% calcific proximal LAD , 90% proximal circumflex) per left heart catheterization on 03/20/17. She has calcific mitral and aortic valve disease; she appears to have approximately 3+ and AR, but also has reduced leaflet motion of her mitral valve and elevated transvalvular gradient (10/25 median peak). Echocardiogram on 03/17/17 revealed depressed EF of 30%, mild LVH, grade 3 diastolic dysfunction. 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 This certainly complicates the possibility of major CV Surgery. She is willing to consider taking a transfusion from her self at a later time. She was home for 3 days after being treated for approximately 2 weeks for CHF and N-STEMI and returned to the emergency room with complaints of chest pain and shortness of breath. She was intubated in the emergency department and required mechanical ventilation for several days. She has been seen by cardiothoracic surgery and is felt to be a prohibitive surgical risk. Dr. Noble had a long discussion with the patient and her family regarding possible treatment options. Echocardiogram was repeated on and revealed EF 40-45%, mild LVH, moderate aortic insufficiency, mild mitral insufficiency. She actually seems to have a better ejection fraction now and her valve disease did not seem severe as previously documented. Ms. Moscoso looks well today. She was extubated over the weekend and is now housed on the telemetry unit. This morning, she is sitting up on the side of the bed eating breakfast. Dr. Noble has discussed her case with Dr. Monroe at [facility] in [place]. He reviewed all of our studies and he agrees that this is likely moderate valve disease in both the mitral position from the stenosis standpoint and moderate /AI. This is most consistent with her most recent transthoracic echocardiogram. Is also noted that her ejection fraction has improved. This brings up the question of whether her heart failure is due to valvular heart disease or her underlying two-vessel coronary artery disease. It is recommended that she undergo dobutamine stress echocardiography. This will let us know if revascularization is the best option with or without valve intervention. However, this is unable to be done in our echo department. She is overall much improved since admission. Dr. Martínez has discussed with Dr. Monroe patient was transferred to [facility] she has been accepted. She will be transferred to [place] today to Dr. Giovani Monroe's service and be transferred to room 3106. Assessment/plan: 1. Respiratory failure -Pulmonology is following. She has now been extubated and on O2 via NBP. From their standpoint, patient can be transferred to [place] at any time. 2. Congestive heart failure -patient was readmitted on 04/05/17 after being discharged 3 days prior with recurrent heart failure. 3. Coronary artery disease -continue aspirin, beta-hector, statin. Will avoid NO or ARB due to renal insufficiency. 4. Aortic insufficiency - Echocardiogram was repeated on 04/05/2017 and revealed EF 40-45%, mild LVH, moderate aortic insufficiency, mild mitral insufficiency. She actually seems to have a better ejection fraction now and her valve disease did not seem severe as previously documented. At this point , she is being transferred to higher level of care with Dr. Monroe, cardiothoracic surgery, at [facility] in [facility]. 5. Hypertension -currently well controlled. Continue current therapy. 6. Hyperlipidemia -continue lipid-lowering agent. 7. Acute on chronic renal failure -creatinine up to 2.0 today. We will avoid any nephrotoxic agents. 8. Diabetes -she has been started on Accu-Cheks and sliding scale insulin. 9. Anemia -H&H stable at 9.2 & 28.6. 10. Mitral regurgitation - Echocardiogram was repeated on 04/05/2017 and revealed EF 40-45%, mild LVH, moderate aortic insufficiency, mild mitral insufficiency. She actually seems to have a better ejection fraction now and her valve disease did not seem severe as previously documented. Exam (Progress Note) - Constitutional Vitals: Period Temp Pulse Resp BP Sys/Pina Pulse Ox Last 24 Hr 98.1 F-99.4 F 61-86 16-20 106-161/55-70 94-98 Exam: General: Present: Appears Well, No Apparent Distress. Pleasant and cooperative. Appears comfortable. HEENT: Present: PERRL, Normocephaly, atraumatic. Mucus Membranes Moist. No jaundice noted. Conjunctiva moist and clear, sclerae anicteric Neck: Present: Supple Neck, Midline Trachea, No Masses, No tenderness Cardiac: Present: Regular Rate and Rhythm, Systolic Murmur Lungs: Present: Few bibasilar rales, otherwise Clear to auscultation bilaterally. Neuro: Present: Awake, alert, and oriented x3. Moves all extremities well without hemiparesis or paralysis. Grossly Intact. Absent: Resting Tremor, Essential Tremor Abdomen: Present: Soft, Active Bowel Sounds, No Masses, Non-Tender, nondistended. No abdominal bruit or thrill noted. Skin: Present: Clear. Absent: Rash, No skin breakdown. Back: Normal inspection, no vertebral tenderness. Musculoskeletal: Present: No Fluid Collection, No Pain, Normal Range of Motion Extremities: Present: Normal Gait, No Clubbing, No Cyanosis, Upper Extr. Pulses 2+, Lower Extr. Pulses 2+, 1-2+ edema to LLE, RLE 1-2+ edema. Capillary refill less than 3 seconds. Result/EKG - Labs CBC & BMP: 04/12/17 02:39 04/12/17 02:39 Lab Results: I have reviewed the past 24 hour labs Labs: Laboratory Results - last 24 hr 04/11/17 04/11/17 04/11/17 11:14 16:04 20:57 WBC RBC Hgb Hct MCV MCH MCHC RDW Plt Count MPV Neut % (Auto) Lymph % (Auto) [place] % (Auto) Eos % (Auto) Baso % (Auto) Neut # (Auto) Lymph # (Auto) [place] # (Auto) Eos # (Auto) Baso # (Auto) Immature Gran % Nucleated RBC % Immature Gran # Nucleated RBCs # Platelet Estimate Hypochromasia Sodium Potassium Chloride Carbon Dioxide Anion Gap BUN Creatinine GFR Calculation BUN/Creatinine Ratio Glucose POC Glucose 305 H 104 208 H Calculated Osmolality Calcium Magnesium 04/12/17 04/12/17 04/12/17 02:39 02:39 07:28 WBC 10.2 RBC 3.28 L Hgb 9.2 L Hct 28.6 L MCV 87.2 MCH 28 MCHC 32.2 RDW 13.6 Plt Count 244 D MPV 10.5 Neut % (Auto) 73.8 Lymph % (Auto) 13.4 L [place] % (Auto) 10.2 Eos % (Auto) 2.1 Baso % (Auto) 0.1 Neut # (Auto) 7.6 H Lymph # (Auto) 1.4 [place] # (Auto) 1.0 H Eos # (Auto) 0.2 Baso # (Auto) 0.0 Immature Gran % 0.4 Nucleated RBC % 0.0 Immature Gran # 0.04 Nucleated RBCs # 0.00 Platelet Estimate Normal Hypochromasia 1+ Sodium 139 Potassium 4.0 Chloride 101 Carbon Dioxide 26 Anion Gap 16.0 H BUN 38 H Creatinine 2.00 H GFR Calculation 22 BUN/Creatinine Ratio 19.00 Glucose 122 H POC Glucose 175 H Calculated Osmolality 286.5 Calcium 8.7 Magnesium 2.4 - EKG EKG results: interpreted by me, sinus rhythm <Jonh Martínez - Last Filed: 04/12/17 11:00> Cardiology - PN: Subj Interval history: Cardiology addendum I spoke with patient and with her sister Mannie. She denies chest pain or shortness of breath. Rhythm has been stable. The patient will be transferred today to [facility] today. Exam (Progress Note) - Constitutional Vitals: Period Temp Pulse Resp BP Sys/Pina Pulse Ox Last 24 Hr 98.1 F-99.4 F 61-86 16-20 106-161/55-70 94-98 Result/EKG - Labs CBC & BMP: 04/12/17 02:39 04/12/17 02:39 Labs: Laboratory Results - last 24 hr 04/11/17 04/11/17 04/11/17 11:14 16:04 20:57 WBC RBC Hgb Hct MCV MCH MCHC RDW Plt Count MPV Neut % (Auto) Lymph % (Auto) [place] % (Auto) Eos % (Auto) Baso % (Auto) Neut # (Auto) Lymph # (Auto) [place] # (Auto) Eos # (Auto) Baso # (Auto) Immature Gran % Nucleated RBC % Immature Gran # Nucleated RBCs # Platelet Estimate Hypochromasia Sodium Potassium Chloride Carbon Dioxide Anion Gap BUN Creatinine GFR Calculation BUN/Creatinine Ratio Glucose POC Glucose 305 H 104 208 H Calculated Osmolality Calcium Magnesium 04/12/17 04/12/17 04/12/17 02:39 02:39 07:28 WBC 10.2 RBC 3.28 L Hgb 9.2 L Hct 28.6 L MCV 87.2 MCH 28 MCHC 32.2 RDW 13.6 Plt Count 244 D MPV 10.5 Neut % (Auto) 73.8 Lymph % (Auto) 13.4 L [place] % (Auto) 10.2 Eos % (Auto) 2.1 Baso % (Auto) 0.1 Neut # (Auto) 7.6 H Lymph # (Auto) 1.4 [place] # (Auto) 1.0 H Eos # (Auto) 0.2 Baso # (Auto) 0.0 Immature Gran % 0.4 Nucleated RBC % 0.0 Immature Gran # 0.04 Nucleated RBCs # 0.00 Platelet Estimate Normal Hypochromasia 1+ Sodium 139 Potassium 4.0 Chloride 101 Carbon Dioxide 26 Anion Gap 16.0 H BUN 38 H Creatinine 2.00 H GFR Calculation 22 BUN/Creatinine Ratio 19.00 Glucose 122 H POC Glucose 175 H Calculated Osmolality 286.5 Calcium 8.7 Magnesium 2.4
[2017-04-12] MEDS: ASPIRIN CHEW 81 MG TABLET PO SCH (09:44)
[2017-04-12] MEDS: glyBURIDE 2.5 MG TABLET PO SCH (09:44)
[2017-04-12] MEDS: CARVEDILOL 25 MG TABLET PO SCH (09:45)
[2017-04-12] MEDS: hydrALAZINE 25 MG TABLET PO SCH (09:45)
[2017-04-12] MEDS: POLYVINYL ALCOHOL 1.4% OPH SOLN 15 ML BOTTLE BOTH EYES SCH (09:46)
[2017-04-12] MEDS: OFLOXACIN 0.3% OPH SOLN 10 ML BOTTLE LEFT EYE SCH (09:46)
[2017-04-12] MEDS: FUROSEMIDE 40 MG/4 ML VIAL IV SCH (09:48)
[2017-04-12] MEDS: CLOTRIMAZOLE/BETAMETHASONE CREAM 15 GM TUBE TOP SCH (09:49)
[2017-04-12] MEDS: MULTIVITAMIN LIQUID (CENTRUM) 60 ML BOTTLE PO SCH (09:49)
[2017-04-12] MEDS: INSULIN LISPRO 100 UNIT/ML SUBCUT SCH (09:50)
== END 2017-04-12 10:57 | disposition hospice, home (50) | DRG 291 ==
LOC: N.ED 01:05 → N.EDINP 02:47 → SUATTDRO 02:47 → N.CC 03:40 → N.TELES 04-09 14:26
PROVIDERS: ADMIT Internal Medicine; ATTEND Internal Medicine

== ENCOUNTER 2017-04-24 08:12 | Inpatient (IN) ==
[2017-04-24] MEDS ORDERED: FUROSEMIDE 100 MG/10 ML VIAL ONE (08:33)
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
[2017-04-24] MEDS ORDERED: PROPOFOL 1,000 MG/100 ML BOTTLE IV ONE (08:44)
[2017-04-24] MEDS ORDERED: ETOMIDATE 20 MG/10 ML VIAL IV ONE (08:50)
[2017-04-24] MEDS ORDERED: SUCCINYLCHOLINE 200 MG/10 ML VIAL ONE (08:51)
[2017-04-24] MEDS ORDERED: VECURONIUM 10 MG VIAL IV ONE (09:15)
--- NOTE | 2017-04-24 09:18 | XRay Report ---
Exam: XR chest 1V portable Indication: Intubated Comparison study: Prior chest radiograph 04/11/2017 Findings: Endotracheal tube is now noted in place with the tip terminating approximately 1.5 cm from the natalia. Coaxial is mildly enlarged. There is diffuse mild interstitial opacities within the perihilar regions and lung bases. There is also small to moderate bilateral pleural effusions. There is no pneumothorax. Osseous structures are stable. Impression: Endotracheal tube terminates approximately 1.5 cm from the natalia and should be retracted 2 cm for more optimal positioning. Findings suggestive of interstitial edema changes and/or multifocal interstitial infectious/inflammatory infiltrates with small to moderate bilateral pleural effusions. No pneumothorax. PROCEDURE INTERPRETED AT [facility] DEPARTMENT OF RADIOLOGY Final Report Signed by: aLst Jennings
[2017-04-24 09:30] LABS: Basophils % 0.1 % (0.0-0.8); Eosinophils # 0.2 10*3/uL (0.0-0.87); Eosinophils % 1.4 % (0.00-10.9); Hematocrit 34.2 VOL% (35.7-47.0); Hemoglobin 10.8 GM/DL (12.0-16.0); Immature Granulocytes % 0.6 %; Immature Granulocytes Absolute 0.09 #; Lymphocytes # 1.4 10*3/uL (1.4-4.0); Lymphocytes % 9.1 % (21.3-54.2); Mean Corpuscular HGB Conc 31.6 GM/DL (32-36); Mean Corpuscular Hemoglobin 29 PG (27-34); Mean Corpuscular Volume 90.2 FL (87-102); Mean Platelet Volume 9.7 FL (9.6-12.0); Monocytes # 0.5 10*3/uL (0.11-0.8); Monocytes % 3.5 % (1.7-12.7); Neutrophils # 12.8 10*3/uL (1.4-7.4); Neutrophils % 85.3 % (38.7-73.9); Platelet Count 408 T/CUMM (130-400); Red Blood Count 3.79 MC/CUMM (3.8-5.5); Red Cell Distribution Width 15.3 % (9.3-17.3)
[2017-04-24 09:41] LABS: INR 1.1; PT Patient Result 11.6 SECS; Partial Thromboplastin Time 23.7 SECS (0-40)
[2017-04-24] MEDS ORDERED: LEVOFLOXACIN INJ 750 MG in PREMIX 1 EACH IV STA (09:47)
[2017-04-24 10:00] LABS: Alanine Aminotransferase 63 U/L (13-56); Albumin 2.7 G/DL (3.4-5.0); Alkaline Phosphatase 166 U/L (45-117); Aspartate Amino Transferase 103 U/L (0-37); Blood Urea Nitrogen 35 MG/DL (7-18); Calcium 8.4 MG/DL (8.5-10.1); Glucose 262 MG/DL (74-106); Osmolality,Calculated 293.5 MOS/KG (273-304); Sodium 139 MMOL/L (136-145); Total Protein 7.1 G/DL (6.4-8.3)
[2017-04-24 10:04] LABS: Troponin I Only 0.098 NG/ML (0.00-0.045)
[2017-04-24] MEDS ORDERED: LEVOFLOXACIN INJ 150 ML IV ONE (10:40)
[2017-04-24 11:06] LABS: Albumin 2.8 G/DL (3.4-5.0); Bilirubin,Total 0.5 MG/DL (0.2-1.0); Calcium 8.8 MG/DL (8.5-10.1)
[2017-04-24 11:07] LABS: Osmolality,Calculated 290.7 MOS/KG (273-304)
[2017-04-24 11:10] LABS: Potassium 6.2 MMOL/L (3.5-5.1)
[2017-04-24 11:18] LABS: Lactic Acid 3.6 MMOL/L (0.4-2.0)
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
[2017-04-24] MEDS: PROPOFOL 1,000 MG/100 ML BOTTLE IV SCH ×2 (12:29→20:49)
[2017-04-24 12:37] LABS: ABG Base Excess 3.2 MMOL/L (-2.5-2.5); ABG HCO3 27.3 MMOL/L (20-26); ABG PCO2 32.8 MM HG (35-48); ABG PH 7.507 (7.35-7.45); ABG TCO2 23.7 MMOL/L (23-27)
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
[2017-04-24] MEDS: PANTOPRAZOLE 40 MG VIAL IV SCH (16:36)
[2017-04-24] MEDS: FUROSEMIDE 40 MG/4 ML VIAL IV SCH (18:58)
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
[2017-04-24] MEDS: CARVEDILOL 12.5 MG TABLET PO SCH (21:25)
[2017-04-24] MEDS: hydrALAZINE 25 MG TABLET PO SCH (21:26)
[2017-04-24] MEDS: ATORVASTATIN 80 MG TABLET PO SCH (21:26)
[2017-04-25] MEDS ORDERED: SODIUM POLYSTYRENE SULFATE 15 GM/60 ML BOTTLE PER TUBE ONE (01:35)
[2017-04-25 03:54] LABS: ABG Base Excess 4.1 MMOL/L (-2.5-2.5); ABG HCO3 28.2 MMOL/L (20-26); ABG Oxygen Saturation 99.9 % (95-100); ABG PCO2 32.5 MM HG (35-48); ABG PH 7.523 (7.35-7.45); ABG TCO2 24.3 MMOL/L (23-27); Allen Test Positive; Pt O2 Delivery Device Ventilator
[2017-04-25 05:36] LABS: Basophils % 0.1 % (0.0-0.8); Eosinophils # 0.1 10*3/uL (0.0-0.87); Eosinophils % 1.2 % (0.00-10.9); Hemoglobin 9.6 GM/DL (12.0-16.0); Immature Granulocytes % 0.7 %; Immature Granulocytes Absolute 0.06 #; Lymphocytes # 1.4 10*3/uL (1.4-4.0); Lymphocytes % 15.2 % (21.3-54.2); Mean Corpuscular Hemoglobin 28 PG (27-34); Mean Corpuscular Volume 87.5 FL (87-102); Mean Platelet Volume 9.9 FL (9.6-12.0); Monocytes # 0.8 10*3/uL (0.11-0.8); Monocytes % 8.9 % (1.7-12.7); Neutrophils # 6.7 10*3/uL (1.4-7.4); Neutrophils % 73.9 % (38.7-73.9); Platelet Count 322 T/CUMM (130-400); Red Blood Count 3.43 MC/CUMM (3.8-5.5); Red Cell Distribution Width 15.6 % (9.3-17.3); White Blood Count 9.1 T/CUMM (4-12)
[2017-04-25 05:58] LABS: Calcium 8.2 MG/DL (8.5-10.1); Magnesium 1.8 MG/DL (1.8-2.4); Osmolality,Calculated 296.4 MOS/KG (273-304); Potassium 3.6 MMOL/L (3.5-5.1)
[2017-04-25 06:01] LABS: Albumin 2.2 G/DL (3.4-5.0); Bilirubin,Total 0.8 MG/DL (0.2-1.0); Calcium 8.6 MG/DL (8.5-10.1); Osmolality,Calculated 297.3 MOS/KG (273-304); Potassium 3.6 MMOL/L (3.5-5.1); Total Protein 5.6 G/DL (6.4-8.3)
--- NOTE | 2017-04-25 06:30 | Ultrasound Report ---
Indication: Respiratory failure, bilateral lower extremity edema Duplex scan of the bilateral lower extremity veins Technique: Duplex scan of the bilateral lower extremity veins using B-mode/grayscale imaging and Doppler spectral analysis and color flow Findings: Major venous structures of the bilateral lower extremity demonstrate a normal course and caliber. There is no evidence of deep vein thrombosis. No abnormal intrinsic echogenic lesions are demonstrated in the scanned blood vessels. Veins demonstrate good compressibility with normal color flow study and spectral analysis. Impression: Unremarkable duplex imaging of the bilateral lower extremity veins. No evidence of DVT PROCEDURE INTERPRETED AT [facility] DEPARTMENT OF RADIOLOGY Final Report Signed by: Last Jennings
--- NOTE | 2017-04-25 07:30 | XRay Report ---
Exam: XR chest 1V portable Indication: Intubated, ventilator Comparison study: 04/24/2017 radiograph Findings: The endotracheal tube terminates approximately 1 cm from the natalia and should be repositioned. An esophagogastric tube is now noted in position and travels below the [id number]. There are perihilar and basilar interstitial opacities which are similar to prior. There is slight improved aeration within the right lung base with suggestion of decreasing right pleural effusion. Blunting of left costophrenic angle however appears similar prior. There is no pneumothorax. Impression: Endotracheal tube should be repositioned at least 2 cm proximally. Esophagogastric tube is now noted in position but the tip is not visualized. Similar perihilar and basilar opacities likely representing interstitial edema and/or infiltrate and residual small left pleural effusion. PROCEDURE INTERPRETED AT [facility] DEPARTMENT OF RADIOLOGY Final Report Signed by: Last Jennings
--- NOTE | 2017-04-25 07:36 | Cardiology Progress Note ---
<Samina Segura E - Last Filed: 04/25/17 08:14> Assessment and Plan - Time spent with patient Time spent with patient: Less than 30 minutes (1) CHF (congestive heart failure) Status: Acute Assessment and plan: See plan of care listed below. Current Visit: Yes Qualifiers: Congestive heart failure type: systolic Congestive heart failure chronicity : acute on chronic Qualified Code(s): I50.23 - Acute on chronic systolic ( congestive) heart failure (2) Pneumonia Status: Acute Assessment and plan: See plan of care listed below. Current Visit: Yes (3) Acute respiratory failure Status: Acute Assessment and plan: See plan of care listed below. Current Visit: Yes (4) Anemia Status: Chronic Assessment and plan: See plan of care listed below. Current Visit: Yes (5) Chronic kidney disease (CKD) Status: Chronic Assessment and plan: See plan of care listed below. Current Visit: Yes Qualifiers: Chronic kidney disease stage: stage 4 (severe) Qualified Code(s): N18.4 - Chronic kidney disease, stage 4 (severe) (6) Aortic insufficiency Status: Chronic Assessment and plan: See plan of care listed below. Current Visit: Yes Qualifiers: Cardiac valve disease etiology: nonrheumatic Qualified Code(s): I35.1 - Nonrheumatic aortic (valve) insufficiency (7) Mitral regurgitation Status: Chronic Assessment and plan: See plan of care listed below. Current Visit: Yes Qualifiers: Cardiac valve disease etiology: nonrheumatic Qualified Code(s): I34.0 - Nonrheumatic mitral (valve) insufficiency (8) Refusal of blood transfusions as patient is [employer] Status: Chronic Assessment and plan: See plan of care listed below. Current Visit: Yes Cardiology - PN: Subj Interval history: Free Lance Model: Dr. Medley SUMMARY: Ms. Moscoso is a 76 year old female with a history of coronary artery disease, aortic insufficiency, mitral regurgitation, congestive heart failure, diabetes, hyperlipidemia, and hypertension. She is status post non-STEMI with three-vessel CAD (occluded ostial RCA, 70% calcific proximal LAD, 90% proximal circumflex) per left heart catheterization on . She was previously admitted for CHF and NSTEMI and was home for 3 days before returning to the ER with SOB and required intubation. She was discharged from our facility on 04/12/17 to [facility] under the care of Dr. Giovani Monroe. He reviewed all of our studies and he agrees that this is likely moderate valve disease in both the mitral position from the stenosis standpoint and moderate /AI. This is most consistent with her most recent transthoracic echocardiogram on 04/05/17 which revealed an EF of 40-45%, mild LVH, moderate aortic insufficiency, mild mitral insufficiency. She was transferred to our facility from [facility] on 04/24/2017 for further evaluation of shortness of breath. She was intubated in the emergency room and is being housed in the ICU. APRIL 25, 2017 UPDATE: Ms. Moscoso is looking much better today. She remains sedated on the ventilator but is easily arousable to verbal stimuli. She follows commands and nods appropriately when asked questions. Apparently, she did not have surgery at [facility]; however, I am unsure of the reason. We are trying to obtain medical records. She put out about 2-1/2 L of urine yesterday. Heart rate and blood pressure have remained stable. Chest x- ray still shows residual small left pleural effusion. ASSESSMENT/PLAN: 1. CONGESTIVE HEART FAILURE - NYHA Class IV. She has been started on IV Lasix and is diuresing well. Recent echocardiogram revealed EF 40-45%. Place under fluid restriction, 1L/day. According to her records, her reports that she is noncompliant with fluid restriction at home. 2. PNEUMONIA - Hospital medicine is following. She has been started on IV antibiotics. Pulmonology has been consulted. 3. ACUTE RESPIRATORY FAILURE - She was intubated in the ER and is sedated and on mechanical ventilation. Pulmonology has been consulted. Venous Dopplers were negative yesterday. 4. ANEMIA - H&H currently stable at 9.6 and 30. 5. CHRONIC KIDNEY DISEASE - Will try to avoid nephrotoxic agents. Creatinine 1.7. Will avoid NO/ARB at this time. 6. CORONARY ARTERY DISEASE - Continue ASA, beta hector, statin. We will continue with medical therapy at this point. Her occlusive coronary disease is not amenable to percutaneous coronary intervention. She is not an optimal candidate for surgical approach. 7. AORTIC INSUFFICIENCY - Echocardiogram was repeated on 04/05/2017 and revealed EF 40-45%, mild LVH, moderate aortic insufficiency, mild mitral insufficiency. She actually seems to have a better ejection fraction now and her valve disease did not seem severe as previously documented. She was transferred to [facility] on 04/12/17 to the care of Dr. Giovani Monroe; however, I do not believe she's had any cardiac surgery since that time. We will try to obtain records from [place]. We will continue support and diuresis and offloading. 8. MITRAL REGURGITATION - Echocardiogram was repeated on 04/05/2017 and revealed EF 40-45%, mild LVH, moderate aortic insufficiency, mild mitral insufficiency. She actually seems to have a better ejection fraction now and her valve disease did not seem severe as previously documented. 9. REFUSAL OF BLOOD PRODUCTS/MANDAEISM - I have seen Mrs. Moscoso during her most recent admissions and per prior discussions, it should be noted that Ms. Moscoso is a [employer] and is unwilling to take someone else' s blood in transfusion. This certainly complicates the possibility of major CV Surgery. She is willing to consider taking a transfusion from her self at a later time. Exam (Progress Note) - Constitutional Vitals: Period Temp Pulse Resp BP Sys/Pina Pulse Ox Last 24 Hr 96.1 F-98.4 F 64-102 12-38 110-182/42-98 99-100 Exam: General appearance: Orally intubated and sedated on ventilator. Normal weight, no acute distress. - Head Head exam: Present: normal inspection, normocephalic, atraumatic. Absent: hematoma, laceration - Eye Eye exam: Present: EOMI. Absent: conjunctival injection, nystagmus, periorbital swelling, scleral icterus, laceration to eyelids Pupils: Present: PERRL. Absent: constricted, dilated, fixed, irregular, unequal - ENT ENT exam: Present: Orally intubated, normal external ear exam, NG tube in place. - Neck Neck exam: Present: normal inspection. Absent: lymphadenopathy, meningismus, tenderness, thyromegaly - Respiratory Respiratory exam: Present: Mechanically ventilated breath sounds with bibasilar rales. Absent: accessory muscle use - Cardiovascular Cardiovascular exam: Present: regular rate and rhythm. Absent: carotid bruit, gallop, JVD, rubs, murmur - GI/Abdominal GI/Abdominal exam: Present: normal bowel sounds, soft. Absent: distended, firm , guarding, hernia, mass, tenderness, rebound. - Extremities Exam Extremities exam: Present: normal inspection, normal capillary refill. Upper extremity pulses 2+. Lower extremity pulses 2+. 2+ pitting edema to bilateral lower extremities, from feet to thighs. Absent: calf tenderness - Back Exam Back exam: Present: Unable to examine due to habitus. Sedated on mechanical ventilator. - Neurological Exam Neurological exam: Present: Limited due to habitus (on ventilator). Arousable to verbal stimuli. Follows commands and lightly squeezes hands when asked. No resting or essential tremor. - Psychiatric Psychiatric exam: Present: Unable to adequately assess due to patient being sedated and on mechanical ventilation. - Skin Skin exam: Present: normal color, warm, dry, intact. Absent: cyanosis, diaphoretic, rash, urticaria Result/EKG - Labs CBC & BMP: 04/25/17 04:51 04/25/17 04:51 Lab Results: I have reviewed the past 24 hour labs Labs: Laboratory Results - last 24 hr 04/24/17 04/24/17 04/24/17 09:16 09:16 09:16 WBC 15.0 H RBC 3.79 L Hgb 10.8 L Hct 34.2 L MCV 90.2 MCH 29 MCHC 31.6 L RDW 15.3 Plt Count 408 H MPV 9.7 Neut % (Auto) 85.3 H Lymph % (Auto) 9.1 L [place] % (Auto) 3.5 Eos % (Auto) 1.4 Baso % (Auto) 0.1 Neut # (Auto) 12.8 H Lymph # (Auto) 1.4 [place] # (Auto) 0.5 Eos # (Auto) 0.2 Baso # (Auto) 0.0 Immature Gran % 0.6 Nucleated RBC % 0.0 Immature Gran # 0.09 Nucleated RBCs # 0.00 INR 1.1 PT Patient/Control Mix 11.6 Circ Anticoag PTT 23.7 ABG pH ABG pCO2 ABG pO2 ABG HCO3 ABG Total CO2 ABG O2 Saturation ABG Base Excess FiO2 Sodium 139 Potassium 6.0 H* Chloride 104 Carbon Dioxide 27 Anion Gap 14.0 BUN 35 H Creatinine 2.20 H GFR Calculation 22 BUN/Creatinine Ratio 15.00 Glucose 262 H POC Glucose Calculated Osmolality 293.5 Lactic Acid Calcium 8.4 L Magnesium Total Bilirubin 0.60 AST 103 H ALT 63 H Alkaline Phosphatase 166 H Total Creatine Kinase 78 CK-MB (CK-2) 1.4 Troponin I 0.098 H B-Natriuretic Peptide Total Protein 7.1 Albumin 2.7 L Globulin 4.4 H Albumin/Globulin Ratio 0.6 L 04/24/17 04/24/17 04/24/17 09:16 10:42 11:42 WBC RBC Hgb Hct MCV MCH MCHC RDW Plt Count MPV Neut % (Auto) Lymph % (Auto) Sauk % (Auto) Eos % (Auto) Baso % (Auto) Neut # (Auto) Lymph # (Auto) Sau[place] # (Auto) Eos # (Auto) Baso # (Auto) Immature Gran % Nucleated RBC % Immature Gran # Nucleated RBCs # INR PT Patient/Control Mix Circ Anticoag PTT ABG pH ABG pCO2 ABG pO2 ABG HCO3 ABG Total CO2 ABG O2 Saturation ABG Base Excess FiO2 Sodium 138 Potassium 6.2 H* Chloride 104 Carbon Dioxide 29 Anion Gap 11.2 BUN 33 H Creatinine 2.10 H GFR Calculation 24 BUN/Creatinine Ratio 15.00 Glucose 263 H POC Glucose 256 H Calculated Osmolality 290.7 Lactic Acid 3.6 H Calcium 8.8 Magnesium Total Bilirubin 0.50 AST 106 H ALT 65 H Alkaline Phosphatase 170 H Total Creatine Kinase CK-MB (CK-2) Troponin I B-Natriuretic Peptide 3815 H Total Protein 7.0 Albumin 2.8 L Globulin 4.2 H Albumin/Globulin Ratio 0.6 L 04/24/17 04/24/17 04/25/17 12:21 18:03 03:49 WBC RBC Hgb Hct MCV MCH MCHC RDW Plt Count MPV Neut % (Auto) Lymph % (Auto) Sauk % (Auto) Eos % (Auto) Baso % (Auto) Neut # (Auto) Lymph # (Auto) [place] # (Auto) Eos # (Auto) Baso # (Auto) Immature Gran % Nucleated RBC % Immature Gran # Nucleated RBCs # INR PT Patient/Control Mix Circ Anticoag PTT ABG pH 7.507 H 7.523 H ABG pCO2 32.8 L 32.5 L ABG pO2 246.0 H 262.0 H ABG HCO3 27.3 H 28.2 H ABG Total CO2 23.7 24.3 ABG O2 Saturation 100.0 99.9 ABG Base Excess 3.2 H 4.1 H FiO2 70.00 Sodium Potassium Chloride Carbon Dioxide Anion Gap BUN Creatinine GFR Calculation BUN/Creatinine Ratio Glucose POC Glucose 75 Calculated Osmolality Lactic Acid Calcium Magnesium Total Bilirubin AST ALT Alkaline Phosphatase Total Creatine Kinase CK-MB (CK-2) Troponin I B-Natriuretic Peptide Total Protein Albumin Globulin Albumin/Globulin Ratio 04/25/17 04/25/17 04/25/17 04:51 04:51 04:51 WBC 9.1 D RBC 3.43 L Hgb 9.6 L Hct 30.0 L MCV 87.5 MCH 28 MCHC 32.0 RDW 15.6 Plt Count 322 D MPV 9.9 Neut % (Auto) 73.9 Lymph % (Auto) 15.2 L Sau[place] % (Auto) 8.9 Eos % (Auto) 1.2 Baso % (Auto) 0.1 Neut # (Auto) 6.7 Lymph # (Auto) 1.4 Sauk # (Auto) 0.8 Eos # (Auto) 0.1 Baso # (Auto) 0.0 Immature Gran % 0.7 Nucleated RBC % 0.0 Immature Gran # 0.06 Nucleated RBCs # 0.00 INR PT Patient/Control Mix Circ Anticoag PTT ABG pH ABG pCO2 ABG pO2 ABG HCO3 ABG Total CO2 ABG O2 Saturation ABG Base Excess FiO2 Sodium 147 H 148 H Potassium 3.6 3.6 Chloride 111 H 110 H Carbon Dioxide 28 28 Anion Gap 11.6 13.6 BUN 31 H 29 H Creatinine 1.70 H 1.70 H GFR Calculation 28 28 BUN/Creatinine Ratio 18.00 17.00 Glucose 68 L 68 L POC Glucose Calculated Osmolality 296.4 297.3 Lactic Acid Calcium 8.2 L 8.6 Magnesium 1.8 Total Bilirubin 0.80 AST 31 ALT 38 Alkaline Phosphatase 112 Total Creatine Kinase CK-MB (CK-2) Troponin I B-Natriuretic Peptide Total Protein 5.6 L Albumin 2.2 L Globulin 3.4 Albumin/Globulin Ratio 0.6 L - EKG EKG results: interpreted by me, sinus rhythm <Raul Hall - Last Filed: 04/25/17 11:12> Cardiology - PN: Subj Interval history: She appears to be improving. She has what looks to be fairly acute on chronic both systolic and diastolic heart failure. She is diuresing nicely. She has significant aortic insufficiency and her mitral insufficiency appears to be moderate as well. I do not know that she is an optimal candidate for surgery for several reasons one being her chronic renal insufficiency and the other being her questionable dementia. She is a [employer] and that may become an issue as well. I have discussed in detail the particulars of this case and I have examined the patient and reviewed the patient's chart both current and old. I was directly involved in the patient's evaluation and management and I completely agree with Samina Segura NP regarding this patient's evaluation and treatment plan. Exam (Progress Note) - Constitutional Vitals: Period Temp Pulse Resp BP Sys/Pina Pulse Ox Last 24 Hr 97.6 F-98.4 F 64-82 12-14 110-168/42-71 99-100 Result/EKG - Labs CBC & BMP: 04/25/17 04:51 04/25/17 04:51 Labs: Laboratory Results - last 24 hr 04/24/17 04/24/17 04/24/17 10:42 11:42 12:21 WBC RBC Hgb Hct MCV MCH MCHC RDW Plt Count MPV Neut % (Auto) Lymph % (Auto) Sauk % (Auto) Eos % (Auto) Baso % (Auto) Neut # (Auto) Lymph # (Auto) [place] # (Auto) Eos # (Auto) Baso # (Auto) Immature Gran % Nucleated RBC % Immature Gran # Nucleated RBCs # ABG pH 7.507 H ABG pCO2 32.8 L ABG pO2 246.0 H ABG HCO3 27.3 H ABG Total CO2 23.7 ABG O2 Saturation 100.0 ABG Base Excess 3.2 H FiO2 Sodium 138 Potassium 6.2 H* Chloride 104 Carbon Dioxide 29 Anion Gap 11.2 BUN 33 H Creatinine 2.10 H GFR Calculation 24 BUN/Creatinine Ratio 15.00 Glucose 263 H POC Glucose 256 H Calculated Osmolality 290.7 Lactic Acid 3.6 H Calcium 8.8 Magnesium Total Bilirubin 0.50 AST 106 H ALT 65 H Alkaline Phosphatase 170 H B-Natriuretic Peptide Total Protein 7.0 Albumin 2.8 L Globulin 4.2 H Albumin/Globulin Ratio 0.6 L 04/24/17 04/25/17 04/25/17 18:03 03:49 04:48 WBC RBC Hgb Hct MCV MCH MCHC RDW Plt Count MPV Neut % (Auto) Lymph % (Auto) Sauk % (Auto) Eos % (Auto) Baso % (Auto) Neut # (Auto) Lymph # (Auto) [place] # (Auto) Eos # (Auto) Baso # (Auto) Immature Gran % Nucleated RBC % Immature Gran # Nucleated RBCs # ABG pH 7.523 H ABG pCO2 32.5 L ABG pO2 262.0 H ABG HCO3 28.2 H ABG Total CO2 24.3 ABG O2 Saturation 99.9 ABG Base Excess 4.1 H FiO2 70.00 Sodium Potassium Chloride Carbon Dioxide Anion Gap BUN Creatinine GFR Calculation BUN/Creatinine Ratio Glucose POC Glucose 75 Calculated Osmolality Lactic Acid Calcium Magnesium Total Bilirubin AST ALT Alkaline Phosphatase B-Natriuretic Peptide 4422 H Total Protein Albumin Globulin Albumin/Globulin Ratio 04/25/17 04/25/17 04/25/17 04:51 04:51 04:51 WBC 9.1 D RBC 3.43 L Hgb 9.6 L Hct 30.0 L MCV 87.5 MCH 28 MCHC 32.0 RDW 15.6 Plt Count 322 D MPV 9.9 Neut % (Auto) 73.9 Lymph % (Auto) 15.2 L [place] % (Auto) 8.9 Eos % (Auto) 1.2 Baso % (Auto) 0.1 Neut # (Auto) 6.7 Lymph # (Auto) 1.4 [place] # (Auto) 0.8 Eos # (Auto) 0.1 Baso # (Auto) 0.0 Immature Gran % 0.7 Nucleated RBC % 0.0 Immature Gran # 0.06 Nucleated RBCs # 0.00 ABG pH ABG pCO2 ABG pO2 ABG HCO3 ABG Total CO2 ABG O2 Saturation ABG Base Excess FiO2 Sodium 147 H 148 H Potassium 3.6 3.6 Chloride 111 H 110 H Carbon Dioxide 28 28 Anion Gap 11.6 13.6 BUN 31 H 29 H Creatinine 1.70 H 1.70 H GFR Calculation 28 28 BUN/Creatinine Ratio 18.00 17.00 Glucose 68 L 68 L POC Glucose Calculated Osmolality 296.4 297.3 Lactic Acid Calcium 8.2 L 8.6 Magnesium 1.8 Total Bilirubin 0.80 AST 31 ALT 38 Alkaline Phosphatase 112 B-Natriuretic Peptide Total Protein 5.6 L Albumin 2.2 L Globulin 3.4 Albumin/Globulin Ratio 0.6 L 04/25/17 09:42 WBC RBC Hgb Hct MCV MCH MCHC RDW Plt Count MPV Neut % (Auto) Lymph % (Auto) Sau[place] % (Auto) Eos % (Auto) Baso % (Auto) Neut # (Auto) Lymph # (Auto) [place] # (Auto) Eos # (Auto) Baso # (Auto) Immature Gran % Nucleated RBC % Immature Gran # Nucleated RBCs # ABG pH 7.506 H ABG pCO2 34.1 L ABG pO2 209.0 H ABG HCO3 28.0 H ABG Total CO2 24.7 ABG O2 Saturation 100.0 ABG Base Excess 3.9 H FiO2 40.00 Sodium Potassium Chloride Carbon Dioxide Anion Gap BUN Creatinine GFR Calculation BUN/Creatinine Ratio Glucose POC Glucose Calculated Osmolality Lactic Acid Calcium Magnesium Total Bilirubin AST ALT Alkaline Phosphatase B-Natriuretic Peptide Total Protein Albumin Globulin Albumin/Globulin Ratio
--- NOTE | 2017-04-25 09:47 | Pulmonology Progress Note ---
Pulmonary - PN: Subj Interval history: This is a 76-year-old black female whom I saw in pulmonary consultation on 2016. She had been admitted with acute congestive heart failure and subsequently developed acute respiratory failure requiring intubation mechanical ventilation. My impressions were. 1. Acute congestive heart failure 2. Acute respiratory failure requiring intubation mechanical ventilation. Most likely secondary to acute congestive heart failure. 3. Cannot rule out infiltrate come compatible with pneumonia. 4. Chronic lower extremity edema. Look for deep venous thrombophlebitis #5. Moderate aortic insufficiency and mild mitral regurgitation. See Dr. Bimal Hall's note 6. Three-vessel heart disease with past history of myocardial infarction and past history of congestive heart failure. See Dr. Hall's note 7. Acute on chronic renal failure 8. Hyper ketonemia. 9. Diabetes mellitus. 10. See past history 04/25/2017. Today's chest x-ray shows some improvement in the degree of congestive heart failure but patient is still in heart failure. I agree with continuing diuresis. On mechanical ventilation and FiO2 of 70% ABGs show a pH of 7.5 to, PCO2 32.5, PO2 of 162 with a bicarb of 28.3. This patient is FiO2 is been decreased to 60%. She is on weaning protocol and she is on physical therapy protocol. Natruretic peptide remains elevated 4422. Creatinine is 1.70 down from 2.10 BUNs 29. Sodium is 148. Potassium 3.6 and chloride is 110. White count is dropped to 9100 with 74 segs 15 lymphs. H&H is 9.2/30.0. Total protein and albumin are low at 5.6 and 2.2 respectively. Physical exam. Vital signs. See below Neurologic. Cranial nerves are intact. Patient moves all 4 extremities Psychiatric. Alert oriented and able to cooperate Face. Symmetrical. No swelling of tongue or lips Neck. Symmetrical no meningismus. Chest. Bibasilar rales Heart. Lateral PMI Abdomen. Nondistended. Very rare bowel sounds Lower extremities. Chronic venous stasis changes. Lymphatics. No submandibular cervical supraclavicular or epitrochlear adenopathy The remainder the exam is noncontributory. Plan. 04/24/2017 1. Mechanical ventilation. Mechanical ventilation weaning protocol mechanical ventilation physical therapy protocol 2. Agree with antibiotics until chest x-ray status is better clarified 3. Sputum for Gram stain culture sensitivity 4. Cold agglutinins 5. Doppler venograms of lower extremities 6. Daily chest x-ray ABGs and lab 04/25/2017. 1. See today's note above. Congestive heart failure better but not resolved 2. Weaning protocol 3. Physical therapy protocol 4. Once congestive heart failure is resolved I think the patient can be rapidly extubated. Exam (Progress Note) - Constitutional Vitals: Period Temp Pulse Resp BP Sys/Pina Pulse Ox Last 24 Hr 97.6 F-98.4 F 64-82 12-12 110-168/42-71 99-100 Results - Labs CBC & BMP: 04/25/17 04:51 04/25/17 04:51
[2017-04-25] MEDS: ASPIRIN CHEW 81 MG TABLET PO SCH (10:17)
[2017-04-25] MEDS: CARVEDILOL 12.5 MG TABLET PO SCH ×2 (10:17→21:17)
[2017-04-25] MEDS: FUROSEMIDE 40 MG/4 ML VIAL IV SCH (10:17)
[2017-04-25] MEDS: hydrALAZINE 25 MG TABLET PO SCH ×3 (10:17→21:17)
[2017-04-25] MEDS: MULTIVITAMIN LIQUID (CENTRUM) 60 ML BOTTLE PO SCH (10:21)
[2017-04-25 10:36] LABS: ABG Base Excess 3.9 MMOL/L (-2.5-2.5); ABG PCO2 34.1 MM HG (35-48); ABG PH 7.506 (7.35-7.45); ABG TCO2 24.7 MMOL/L (23-27); Allen Test Positive; Pt O2 Delivery Device Ventilator
[2017-04-25] MEDS: PROPOFOL 1,000 MG/100 ML BOTTLE IV SCH (10:40)
--- NOTE | 2017-04-25 11:11 | Hospitalist Progress Note ---
Assessment and Plan (1) Congestive heart failure Status: Chronic Assessment and plan: The patient is admitted to the hospital with respiratory failure due to pulmonary edema in the face of coronary and valvular heart disease. The patient has been stabilized. We will re-feed the patient today and continue ventilator weaning as possible. Current Visit: No Qualifiers: Congestive heart failure type: combined Congestive heart failure chronicity : acute on chronic Qualified Code(s): I50.43 - Acute on chronic combined systolic (congestive) and diastolic (congestive) heart failure (2) Mitral regurgitation Status: Chronic Current Visit: Yes Qualifiers: Cardiac valve disease etiology: nonrheumatic Qualified Code(s): I34.0 - Nonrheumatic mitral (valve) insufficiency (3) Aortic valve stenosis Status: Acute Current Visit: No Hospitalist: Subjective Interval history: The patient is awake and responsive this morning. The patient does not complain of chest pain or shortness of breath Exam - Constitutional Vitals: Period Temp Pulse Resp BP Sys/Pina Pulse Ox Last 24 Hr 97.6 F-98.4 F 64-82 12-14 110-168/42-71 99-100 Exam: Constitutional System: Mild distress. No tremulousness. The patient is orally intubated and mechanically ventilated Head: Normocephalic, atraumatic. Ears, Nose and Throat System: No evidence of Otitis or Mastoiditis. No epistaxis or discharge Eyes System: Pupils equal, round, and reactive. Extraocular muscles intact. Neck: Supple, without adenopathy, No jugular venous distention. No thyromegaly , neck mass, or prior surgery apparent. Respiratory System: Chest clear to auscultation. Cardiovascular System: Heart with regular rate and rhythm. 3/6 systolic murmur. GI System: Abdomen soft, nontender. Normo active bowel sounds present. Musculoskeletal System: limbs with no pedal edema. Full distal pulses. Neurological System: No discernable sensory deficit. Results - Labs CBC & BMP: 04/25/17 04:51 04/25/17 04:51 Lab Results: I have reviewed the past 24 hour labs
[2017-04-25] MEDS: INSULIN REGULAR 100 UNIT/ML SUBCUT SCH ×2 (12:51→18:12)
[2017-04-25] MEDS: PANTOPRAZOLE 40 MG VIAL IV SCH (15:24)
[2017-04-25] MEDS: ATORVASTATIN 80 MG TABLET PO SCH (21:17)
[2017-04-26] MEDS: INSULIN REGULAR 100 UNIT/ML SUBCUT SCH ×4 (00:41→18:23)
[2017-04-26 03:45] LABS: ABG Base Excess 6.1 MMOL/L (-2.5-2.5); ABG Oxygen Saturation 99.9 % (95-100); ABG PCO2 34.1 MM HG (35-48); ABG PH 7.534 (7.35-7.45); ABG TCO2 26.2 MMOL/L (23-27)
[2017-04-26] MEDS ORDERED: FUROSEMIDE 40 MG/4 ML VIAL IV ONE (04:43)
[2017-04-26 05:28] LABS: Basophils % 0.2 % (0.0-0.8); Eosinophils # 0.5 10*3/uL (0.0-0.87); Eosinophils % 4.5 % (0.00-10.9); Hematocrit 30.8 VOL% (35.7-47.0); Immature Granulocytes % 0.5 %; Immature Granulocytes Absolute 0.05 #; Lymphocytes # 1.6 10*3/uL (1.4-4.0); Lymphocytes % 15.1 % (21.3-54.2); Mean Corpuscular HGB Conc 32.5 GM/DL (32-36); Mean Corpuscular Hemoglobin 29 PG (27-34); Monocytes # 1.1 10*3/uL (0.11-0.8); Monocytes % 10.2 % (1.7-12.7); Neutrophils # 7.2 10*3/uL (1.4-7.4); Neutrophils % 69.5 % (38.7-73.9); Platelet Count 309 T/CUMM (130-400); Red Cell Distribution Width 15.7 % (9.3-17.3); White Blood Count 10.3 T/CUMM (4-12)
[2017-04-26 05:53] LABS: Magnesium 2.1 MG/DL (1.8-2.4); Osmolality,Calculated 298.3 MOS/KG (273-304); Potassium 3.2 MMOL/L (3.5-5.1)
[2017-04-26 06:00] LABS: Albumin 2.2 G/DL (3.4-5.0); Bilirubin,Total 0.6 MG/DL (0.2-1.0); Calcium 7.8 MG/DL (8.5-10.1); Osmolality,Calculated 299.3 MOS/KG (273-304); Potassium 3.2 MMOL/L (3.5-5.1); Total Protein 5.4 G/DL (6.4-8.3)
--- NOTE | 2017-04-26 07:27 | XRay Report ---
Exam: XR chest 1V portable Date: 04/26/2017 4:00 AM Indication: Follow-up ventilator respiratory failure Comparison: 04/25/2017 Technical: AP portable Findings: Stable appearance of the endotracheal tube and nasogastric tube. Cardiomegaly present. Alveolar shunt vascularity is present. Low volume effusions are present bilaterally. This slightly worse on the right as compared to the left on previous examination. No pneumothorax. ASVD is present. External cardiac leads are present. Impression: 1. Stable appearance of life support tubing 2. Underlying component of CHF with changing patterns of atelectasis and effusions greater on the right today than the left PROCEDURE INTERPRETED AT [facility] DEPARTMENT OF RADIOLOGY Final Report Signed by: Dr. Abram Garcia
[2017-04-26] MEDS ORDERED: POTASSIUM CHLORIDE 20 MEQ/15 ML UDCUP PER TUBE ONE (08:28)
--- NOTE | 2017-04-26 08:56 | Cardiology Progress Note ---
<Samina eSgura E - Last Filed: 04/26/17 09:01> Assessment and Plan - Time spent with patient Time spent with patient: Less than 30 minutes (1) CHF (congestive heart failure) Status: Acute Assessment and plan: See plan of care listed below. Current Visit: Yes Qualifiers: Congestive heart failure type: systolic Congestive heart failure chronicity : acute on chronic Qualified Code(s): I50.23 - Acute on chronic systolic ( congestive) heart failure (2) Pneumonia Status: Acute Assessment and plan: See plan of care listed below. Current Visit: Yes (3) Acute respiratory failure Status: Acute Assessment and plan: See plan of care listed below. Current Visit: Yes (4) Anemia Status: Chronic Assessment and plan: See plan of care listed below. Current Visit: Yes (5) Chronic kidney disease (CKD) Status: Chronic Assessment and plan: See plan of care listed below. Current Visit: Yes Qualifiers: Chronic kidney disease stage: stage 4 (severe) Qualified Code(s): N18.4 - Chronic kidney disease, stage 4 (severe) (6) Aortic insufficiency Status: Chronic Assessment and plan: See plan of care listed below. Current Visit: Yes Qualifiers: Cardiac valve disease etiology: nonrheumatic Qualified Code(s): I35.1 - Nonrheumatic aortic (valve) insufficiency (7) Mitral regurgitation Status: Chronic Assessment and plan: See plan of care listed below. Current Visit: Yes Qualifiers: Cardiac valve disease etiology: nonrheumatic Qualified Code(s): I34.0 - Nonrheumatic mitral (valve) insufficiency (8) Refusal of blood transfusions as patient is Moravian Status: Chronic Assessment and plan: See plan of care listed below. Current Visit: Yes Cardiology - PN: Subj Interval history: Grocery Checker: Dr. Medley SUMMARY: Ms. Moscoso is a 76 year old female with a history of coronary artery disease, aortic insufficiency, mitral regurgitation, congestive heart failure, diabetes, hyperlipidemia, and hypertension. She is status post non-STEMI with three-vessel CAD (occluded ostial RCA, 70% calcific proximal LAD, 90% proximal circumflex) per left heart catheterization on . She was previously admitted for CHF and NSTEMI and was home for 3 days before returning to the ER with SOB and required intubation. She was discharged from our facility on 04/12/17 to [facility] under the care of Dr. Giovani Monroe. He reviewed all of our studies and he agrees that this is likely moderate valve disease in both the mitral position from the stenosis standpoint and moderate /AI. This is most consistent with her most recent transthoracic echocardiogram on 04/05/17 which revealed an EF of 40-45%, mild LVH, moderate aortic insufficiency, mild mitral insufficiency. She was transferred to our facility from [facility] on 04/24/2017 for further evaluation of shortness of breath. She was intubated in the emergency room and is being housed in the ICU. APRIL 26, 2017 UPDATE: Ms. Moscoso remains sedated on the ventilator but is easily arousable to verbal stimuli. She follows commands and nods appropriately when asked questions. Apparently, she did not have surgery at [facility]; I am told she was not a surgical candidate. Heart rate and blood pressure have remained stable. Urine output has slowed considerably. She is negative about 3.2L since admission. Chest x-ray still shows effusions greater on the right today than the left; clinically, she seems about the same. Potassium is 3.2 today. She was hyperkalemic upon admission at 6.2. We'll give her a one time dose of 40mEq via NG tube and continue to monitor. Will avoid resuming her aldactone considering her hyperkalemia on admission. She did receive an extra dose of IV Lasix this morning. Will further discuss with Dr. Hall and await his additional recommendations. ASSESSMENT/PLAN: 1. CONGESTIVE HEART FAILURE - NYHA Class IV. Recent echocardiogram revealed EF 40-45%. According to her records, her reports that she is noncompliant with fluid restriction at home. 2. PNEUMONIA - Hospital medicine is following. She has been started on IV antibiotics. Pulmonology has been consulted. 3. ACUTE RESPIRATORY FAILURE - She was intubated in the ER and is sedated and on mechanical ventilation. Pulmonology is following. Venous Dopplers were negative. 4. ANEMIA - H&H currently stable at 10.0 and 30.8. 5. CHRONIC KIDNEY DISEASE - Will try to avoid nephrotoxic agents. Creatinine 1.6. Will avoid NO/ARB at this time. 6. CORONARY ARTERY DISEASE - Continue ASA, beta hector, statin. We will continue with medical therapy at this point. Her occlusive coronary disease is not amenable to percutaneous coronary intervention. She is not an optimal candidate for surgical approach. 7. AORTIC INSUFFICIENCY - Echocardiogram was repeated on 04/05/2017 and revealed EF 40-45%, mild LVH, moderate aortic insufficiency, mild mitral insufficiency. She actually seems to have a better ejection fraction now and her valve disease did not seem severe as previously documented. She was transferred to [facility] on 04/12/17 to the care of Dr. Giovani Monroe; however, she was not felt to be a surgical candidate. We will continue support and diuresis and offloading. 8. MITRAL REGURGITATION - Echocardiogram was repeated on 04/05/2017 and revealed EF 40-45%, mild LVH, moderate aortic insufficiency, mild mitral insufficiency. She actually seems to have a better ejection fraction now and her valve disease did not seem severe as previously documented. 9. REFUSAL OF BLOOD PRODUCTS/YAZIDISM - I have seen Mrs. Moscoso during her most recent admissions and per prior discussions, it should be noted that Ms. Moscoso is a [employer] and is unwilling to take someone else' s blood in transfusion. She is willing to consider taking a transfusion from her self at a later time. Exam (Progress Note) - Constitutional Vitals: Period Temp Pulse Resp BP Sys/Pina Pulse Ox Last 24 Hr 97.2 F-98.9 F 55-81 11-14 113-161/44-82 100-100 Exam: General appearance: Orally intubated and sedated on ventilator. Normal weight, no acute distress. - Head Head exam: Present: normal inspection, normocephalic, atraumatic. Absent: hematoma, laceration - Eye Eye exam: Present: EOMI. Absent: conjunctival injection, nystagmus, periorbital swelling, scleral icterus, laceration to eyelids Pupils: Present: PERRL. Absent: constricted, dilated, fixed, irregular, unequal - ENT ENT exam: Present: Orally intubated, normal external ear exam, NG tube in place. - Neck Neck exam: Present: normal inspection. Absent: lymphadenopathy, meningismus, tenderness, thyromegaly - Respiratory Respiratory exam: Present: Mechanically ventilated breath sounds with bibasilar rales. Absent: accessory muscle use - Cardiovascular Cardiovascular exam: Present: regular rate and rhythm. Absent: carotid bruit, gallop, JVD, rubs, murmur - GI/Abdominal GI/Abdominal exam: Present: normal bowel sounds, soft. Absent: distended, firm , guarding, hernia, mass, tenderness, rebound. - Extremities Exam Extremities exam: Present: normal inspection, normal capillary refill. Upper extremity pulses 2+. Lower extremity pulses 2+. 2+ pitting edema to bilateral lower extremities, from feet to thighs. Absent: calf tenderness - Back Exam Back exam: Present: Unable to examine due to habitus. Sedated on mechanical ventilator. - Neurological Exam Neurological exam: Present: Limited due to habitus (on ventilator). Arousable to verbal stimuli. Follows commands and lightly squeezes hands when asked. No resting or essential tremor. - Psychiatric Psychiatric exam: Present: Unable to adequately assess due to patient being sedated and on mechanical ventilation. - Skin Skin exam: Present: normal color, warm, dry, intact. Absent: cyanosis, diaphoretic, rash, urticaria Result/EKG - Labs CBC & BMP: 04/26/17 04:59 04/26/17 04:59 Lab Results: I have reviewed the past 24 hour labs Labs: Laboratory Results - last 24 hr 04/24/17 04/25/17 04/25/17 22:19 09:42 11:18 WBC RBC Hgb Hct MCV MCH MCHC RDW Plt Count MPV Neut % (Auto) Lymph % (Auto) Wilkes % (Auto) Eos % (Auto) Baso % (Auto) Neut # (Auto) Lymph # (Auto) Wilkes # (Auto) Eos # (Auto) Baso # (Auto) Immature Gran % Nucleated RBC % Immature Gran # Nucleated RBCs # ABG pH 7.506 H ABG pCO2 34.1 L ABG pO2 209.0 H ABG HCO3 28.0 H ABG Total CO2 24.7 ABG O2 Saturation 100.0 ABG Base Excess 3.9 H FiO2 40.00 Sodium Potassium Chloride Carbon Dioxide Anion Gap BUN Creatinine GFR Calculation BUN/Creatinine Ratio Glucose POC Glucose 98 Calculated Osmolality Calcium Magnesium Total Bilirubin AST ALT Alkaline Phosphatase B-Natriuretic Peptide Total Protein Albumin Globulin Albumin/Globulin Ratio Cold Agglutinin Screen 1:2 04/25/17 04/25/17 04/26/17 18:08 23:57 03:25 WBC RBC Hgb Hct MCV MCH MCHC RDW Plt Count MPV Neut % (Auto) Lymph % (Auto) Wilkes % (Auto) Eos % (Auto) Baso % (Auto) Neut # (Auto) Lymph # (Auto) Wilkes # (Auto) Eos # (Auto) Baso # (Auto) Immature Gran % Nucleated RBC % Immature Gran # Nucleated RBCs # ABG pH 7.534 H ABG pCO2 34.1 L ABG pO2 213.0 H ABG HCO3 30.0 H ABG Total CO2 26.2 ABG O2 Saturation 99.9 ABG Base Excess 6.1 H FiO2 Sodium Potassium Chloride Carbon Dioxide Anion Gap BUN Creatinine GFR Calculation BUN/Creatinine Ratio Glucose POC Glucose 160 H 197 H Calculated Osmolality Calcium Magnesium Total Bilirubin AST ALT Alkaline Phosphatase B-Natriuretic Peptide Total Protein Albumin Globulin Albumin/Globulin Ratio Cold Agglutinin Screen 04/26/17 04/26/17 04/26/17 04:59 04:59 04:59 WBC 10.3 RBC 3.50 L Hgb 10.0 L Hct 30.8 L MCV 88.0 MCH 29 MCHC 32.5 RDW 15.7 Plt Count 309 MPV 10.0 Neut % (Auto) 69.5 Lymph % (Auto) 15.1 L Wilkes % (Auto) 10.2 Eos % (Auto) 4.5 Baso % (Auto) 0.2 Neut # (Auto) 7.2 Lymph # (Auto) 1.6 Wilkes # (Auto) 1.1 H Eos # (Auto) 0.5 Baso # (Auto) 0.0 Immature Gran % 0.5 Nucleated RBC % 0.0 Immature Gran # 0.05 Nucleated RBCs # 0.00 ABG pH ABG pCO2 ABG pO2 ABG HCO3 ABG Total CO2 ABG O2 Saturation ABG Base Excess FiO2 Sodium 148 H Potassium 3.2 L Chloride 111 H Carbon Dioxide 28 Anion Gap 12.2 BUN 28 H Creatinine 1.60 H GFR Calculation 29 BUN/Creatinine Ratio 17.00 Glucose 93 POC Glucose Calculated Osmolality 299.3 Calcium 7.8 L Magnesium Total Bilirubin 0.60 AST 29 ALT 33 Alkaline Phosphatase 119 H B-Natriuretic Peptide 4706 H Total Protein 5.4 L Albumin 2.2 L Globulin 3.2 Albumin/Globulin Ratio 0.6 L Cold Agglutinin Screen 04/26/17 04/26/17 04:59 05:37 WBC RBC Hgb Hct MCV MCH MCHC RDW Plt Count MPV Neut % (Auto) Lymph % (Auto) Wilkes % (Auto) Eos % (Auto) Baso % (Auto) Neut # (Auto) Lymph # (Auto) Wilkes # (Auto) Eos # (Auto) Baso # (Auto) Immature Gran % Nucleated RBC % Immature Gran # Nucleated RBCs # ABG pH ABG pCO2 ABG pO2 ABG HCO3 ABG Total CO2 ABG O2 Saturation ABG Base Excess FiO2 Sodium 148 H Potassium 3.2 L Chloride 111 H Carbon Dioxide 28 Anion Gap 12.2 BUN 27 H Creatinine 1.60 H GFR Calculation 29 BUN/Creatinine Ratio 16.00 Glucose 95 POC Glucose 104 Calculated Osmolality 298.3 Calcium 8.0 L Magnesium 2.1 Total Bilirubin AST ALT Alkaline Phosphatase B-Natriuretic Peptide Total Protein Albumin Globulin Albumin/Globulin Ratio Cold Agglutinin Screen - EKG EKG results: interpreted by me, sinus rhythm <Raul Hall - Last Filed: 04/26/17 10:36> Cardiology - PN: Subj Interval history: She is alert and awake and appropriate this morning. Hopefully we can continue weaning. Her urine output is good and she has diuresed significantly since admission although she has slowed somewhat. Our plan is going to be continuing offloading and diuresis. Continue weaning. I have discussed in detail the particulars of this case and I have examined the patient and reviewed the patient's chart both current and old. I was directly involved in the patient's evaluation and management and I completely agree with Samina Segura NP regarding this patient's evaluation and treatment plan. Exam (Progress Note) - Constitutional Vitals: Period Temp Pulse Resp BP Sys/Pina Pulse Ox Last 24 Hr 97.2 F-98.9 F 55-74 11-23 113-161/44-82 100-100 Result/EKG - Labs CBC & BMP: 04/26/17 04:59 04/26/17 04:59 Labs: Laboratory Results - last 24 hr 04/24/17 04/25/17 04/25/17 22:19 09:42 11:18 WBC RBC Hgb Hct MCV MCH MCHC RDW Plt Count MPV Neut % (Auto) Lymph % (Auto) Wilkes % (Auto) Eos % (Auto) Baso % (Auto) Neut # (Auto) Lymph # (Auto) Wilkes # (Auto) Eos # (Auto) Baso # (Auto) Immature Gran % Nucleated RBC % Immature Gran # Nucleated RBCs # ABG pH 7.506 H ABG pCO2 34.1 L ABG pO2 209.0 H ABG HCO3 28.0 H ABG Total CO2 24.7 ABG O2 Saturation 100.0 ABG Base Excess 3.9 H FiO2 40.00 Sodium Potassium Chloride Carbon Dioxide Anion Gap BUN Creatinine GFR Calculation BUN/Creatinine Ratio Glucose POC Glucose 98 Calculated Osmolality Calcium Magnesium Total Bilirubin AST ALT Alkaline Phosphatase B-Natriuretic Peptide Total Protein Albumin Globulin Albumin/Globulin Ratio Cold Agglutinin Screen 1:2 04/25/17 04/25/17 04/26/17 18:08 23:57 03:25 WBC RBC Hgb Hct MCV MCH MCHC RDW Plt Count MPV Neut % (Auto) Lymph % (Auto) Wilkes % (Auto) Eos % (Auto) Baso % (Auto) Neut # (Auto) Lymph # (Auto) Wilkes # (Auto) Eos # (Auto) Baso # (Auto) Immature Gran % Nucleated RBC % Immature Gran # Nucleated RBCs # ABG pH 7.534 H ABG pCO2 34.1 L ABG pO2 213.0 H ABG HCO3 30.0 H ABG Total CO2 26.2 ABG O2 Saturation 99.9 ABG Base Excess 6.1 H FiO2 Sodium Potassium Chloride Carbon Dioxide Anion Gap BUN Creatinine GFR Calculation BUN/Creatinine Ratio Glucose POC Glucose 160 H 197 H Calculated Osmolality Calcium Magnesium Total Bilirubin AST ALT Alkaline Phosphatase B-Natriuretic Peptide Total Protein Albumin Globulin Albumin/Globulin Ratio Cold Agglutinin Screen 04/26/17 04/26/17 04/26/17 04:59 04:59 04:59 WBC 10.3 RBC 3.50 L Hgb 10.0 L Hct 30.8 L MCV 88.0 MCH 29 MCHC 32.5 RDW 15.7 Plt Count 309 MPV 10.0 Neut % (Auto) 69.5 Lymph % (Auto) 15.1 L Wilkes % (Auto) 10.2 Eos % (Auto) 4.5 Baso % (Auto) 0.2 Neut # (Auto) 7.2 Lymph # (Auto) 1.6 Wilkes # (Auto) 1.1 H Eos # (Auto) 0.5 Baso # (Auto) 0.0 Immature Gran % 0.5 Nucleated RBC % 0.0 Immature Gran # 0.05 Nucleated RBCs # 0.00 ABG pH ABG pCO2 ABG pO2 ABG HCO3 ABG Total CO2 ABG O2 Saturation ABG Base Excess FiO2 Sodium 148 H Potassium 3.2 L Chloride 111 H Carbon Dioxide 28 Anion Gap 12.2 BUN 28 H Creatinine 1.60 H GFR Calculation 29 BUN/Creatinine Ratio 17.00 Glucose 93 POC Glucose Calculated Osmolality 299.3 Calcium 7.8 L Magnesium Total Bilirubin 0.60 AST 29 ALT 33 Alkaline Phosphatase 119 H B-Natriuretic Peptide 4706 H Total Protein 5.4 L Albumin 2.2 L Globulin 3.2 Albumin/Globulin Ratio 0.6 L Cold Agglutinin Screen 04/26/17 04/26/17 04/26/17 04:59 05:37 09:42 WBC RBC Hgb Hct MCV MCH MCHC RDW Plt Count MPV Neut % (Auto) Lymph % (Auto) Wilkes % (Auto) Eos % (Auto) Baso % (Auto) Neut # (Auto) Lymph # (Auto) Wilkes # (Auto) Eos # (Auto) Baso # (Auto) Immature Gran % Nucleated RBC % Immature Gran # Nucleated RBCs # ABG pH 7.458 H ABG pCO2 40.5 ABG pO2 143.0 H ABG HCO3 28.4 H ABG Total CO2 25.7 ABG O2 Saturation 99.4 ABG Base Excess 4.4 H FiO2 50.00 Sodium 148 H Potassium 3.2 L Chloride 111 H Carbon Dioxide 28 Anion Gap 12.2 BUN 27 H Creatinine 1.60 H GFR Calculation 29 BUN/Creatinine Ratio 16.00 Glucose 95 POC Glucose 104 Calculated Osmolality 298.3 Calcium 8.0 L Magnesium 2.1 Total Bilirubin AST ALT Alkaline Phosphatase B-Natriuretic Peptide Total Protein Albumin Globulin Albumin/Globulin Ratio Cold Agglutinin Screen
[2017-04-26] MEDS: CARVEDILOL 12.5 MG TABLET PO SCH ×2 (08:57→21:53)
[2017-04-26] MEDS: hydrALAZINE 25 MG TABLET PO SCH ×3 (08:57→21:53)
[2017-04-26] MEDS: MULTIVITAMIN LIQUID (CENTRUM) 60 ML BOTTLE PO SCH (08:57)
[2017-04-26] MEDS: ASPIRIN CHEW 81 MG TABLET PO SCH (08:57)
[2017-04-26] MEDS: FUROSEMIDE 40 MG/4 ML VIAL IV SCH (08:58)
[2017-04-26 09:44] LABS: Allen Test Positive; Pt O2 Delivery Device Ventilator
[2017-04-26 09:45] LABS: ABG Base Excess 4.4 MMOL/L (-2.5-2.5); ABG HCO3 28.4 MMOL/L (20-26); ABG Oxygen Saturation 99.4 % (95-100); ABG PCO2 40.5 MM HG (35-48); ABG PH 7.458 (7.35-7.45); ABG TCO2 25.7 MMOL/L (23-27)
--- NOTE | 2017-04-26 10:29 | Pulmonology Progress Note ---
Pulmonary - PN: Subj Interval history: This is a 76-year-old black female whom I saw in pulmonary consultation on 2016. She had been admitted with acute congestive heart failure and subsequently developed acute respiratory failure requiring intubation mechanical ventilation. My impressions were. 1. Acute congestive heart failure 2. Acute respiratory failure requiring intubation mechanical ventilation. Most likely secondary to acute congestive heart failure. 3. Cannot rule out infiltrate come compatible with pneumonia. 4. Chronic lower extremity edema. Look for deep venous thrombophlebitis #5. Moderate aortic insufficiency and mild mitral regurgitation. See Dr. Bimal Hall's note 6. Three-vessel heart disease with past history of myocardial infarction and past history of congestive heart failure. See Dr. Hall's note 7. Acute on chronic renal failure 8. Hyper ketonemia. 9. Diabetes mellitus. 10. See past history 04/25/2017. Today's chest x-ray shows some improvement in the degree of congestive heart failure but patient is still in heart failure. I agree with continuing diuresis. On mechanical ventilation and FiO2 of 70% ABGs show a pH of 7.5 to, PCO2 32.5, PO2 of 162 with a bicarb of 28.3. This patient is FiO2 is been decreased to 60%. She is on weaning protocol and she is on physical therapy protocol. Natruretic peptide remains elevated 4422. Creatinine is 1.70 down from 2.10 BUNs 29. Sodium is 148. Potassium 3.6 and chloride is 110. White count is dropped to 9100 with 74 segs 15 lymphs. H&H is 9.2/30.0. Total protein and albumin are low at 5.6 and 2.2 respectively. 04/26/2017. Today's chest x-ray is improved. Patient still has congestive heart failure with bilateral pleural effusions, central vascular engorgement and increased interstitial markings in the perihilar areas and also in the bases of the lungs. ABGs on mechanical ventilation FiO2 of 50% shows a pH of 7.46, PCO2 40.5 PO2 143 and a bicarb of 28.4. On 04/25/2017 the patient could not do CPAP but today she is doing very well. As her congestive heart failure resolves I think we will will be able to advance her rapidly. Sodium is 148. Potassium 3.2. Creatinine is dropped 1.60 with a BUN of 27. CBC is stable. Nitrated peptide remains elevated 4706. Protein and albumin are low at 5.4 and 2.2 respectively liver function tests have been Physical exam. Vital signs. See below Neurologic. Cranial nerves are intact. Patient moves all 4 extremities Psychiatric. Alert oriented and able to cooperate Face. Symmetrical. No swelling of tongue or lips Neck. Symmetrical no meningismus. Chest. Bibasilar rales Heart. Lateral PMI Abdomen. Nondistended. Very rare bowel sounds Lower extremities. Chronic venous stasis changes. Lymphatics. No submandibular cervical supraclavicular or epitrochlear adenopathy The remainder the exam is noncontributory. Plan. 04/24/2017 1. Mechanical ventilation. Mechanical ventilation weaning protocol mechanical ventilation physical therapy protocol 2. Agree with antibiotics until chest x-ray status is better clarified 3. Sputum for Gram stain culture sensitivity 4. Cold agglutinins 5. Doppler venograms of lower extremities 6. Daily chest x-ray ABGs and lab 04/25/2017. 1. See today's note above. Congestive heart failure better but not resolved 2. Weaning protocol 3. Physical therapy protocol 4. Once congestive heart failure is resolved I think the patient can be rapidly extubated. 04/26/2017. 1. See today's note above. 2. Much better and weaning protocol today. Should move rapidly if her pulmonary edema will resolve rapidly Exam (Progress Note) - Constitutional Vitals: Period Temp Pulse Resp BP Sys/Pina Pulse Ox Last 24 Hr 97.2 F-98.9 F 55-74 11-23 113-161/44-82 100-100 Results - Labs CBC & BMP: 04/26/17 04:59 04/26/17 04:59
[2017-04-26] MEDS ORDERED: metOLazone 5 MG TABLET PO ONE (11:00)
[2017-04-26] MEDS: PROPOFOL 1,000 MG/100 ML BOTTLE IV SCH (12:32)
--- NOTE | 2017-04-26 13:14 | Hospitalist Progress Note ---
Assessment and Plan (1) Congestive heart failure Status: Chronic Assessment and plan: The patient is admitted to the hospital with respiratory failure due to pulmonary edema in the face of coronary and valvular heart disease. The patient has been stabilized. The patient is tolerating tube feedings. We hope to wean the patient as volume status improves. Current Visit: No Qualifiers: Congestive heart failure type: combined Congestive heart failure chronicity : acute on chronic Qualified Code(s): I50.43 - Acute on chronic combined systolic (congestive) and diastolic (congestive) heart failure (2) Mitral regurgitation Status: Chronic Current Visit: Yes Qualifiers: Cardiac valve disease etiology: nonrheumatic Qualified Code(s): I34.0 - Nonrheumatic mitral (valve) insufficiency (3) Aortic valve stenosis Status: Acute Current Visit: No Hospitalist: Subjective Interval history: The patient remains on the ventilator due to respiratory failure. This is complicated by heart failure due to ischemic and valvular heart disease. The patient continues with diuresis and x-ray looks better Exam - Constitutional Vitals: Period Temp Pulse Resp BP Sys/Pina Pulse Ox Last 24 Hr 97.2 F-98.9 F 55-74 12-26 115-161/44-82 100-100 Exam: Constitutional System: Mild distress. No tremulousness. The patient is orally intubated and mechanically ventilated Head: Normocephalic, atraumatic. Ears, Nose and Throat System: No evidence of Otitis or Mastoiditis. No epistaxis or discharge Eyes System: Pupils equal, round, and reactive. Extraocular muscles intact. Neck: Supple, without adenopathy, No jugular venous distention. No thyromegaly , neck mass, or prior surgery apparent. Respiratory System: Chest clear to auscultation. Cardiovascular System: Heart with regular rate and rhythm. 3/6 systolic murmur. GI System: Abdomen soft, nontender. Normo active bowel sounds present. Musculoskeletal System: limbs with no pedal edema. Full distal pulses. Neurological System: No discernable sensory deficit. Results - Labs CBC & BMP: 04/26/17 04:59 04/26/17 04:59 Lab Results: I have reviewed the past 24 hour labs
[2017-04-26] MEDS: PANTOPRAZOLE 40 MG VIAL IV SCH (15:04)
[2017-04-26] MEDS: ATORVASTATIN 80 MG TABLET PO SCH (21:53)
[2017-04-27] MEDS: INSULIN REGULAR 100 UNIT/ML SUBCUT SCH ×4 (00:22→18:12)
[2017-04-27 02:53] LABS: ABG Base Excess 6.7 MMOL/L (-2.5-2.5); ABG HCO3 30.5 MMOL/L (20-26); ABG PCO2 40.3 MM HG (35-48); ABG PH 7.497 (7.35-7.45); ABG TCO2 31.7 MMOL/L (23-27); Allen Test Positive; Pt O2 Delivery Device Ventilator
[2017-04-27 04:20] LABS: Basophils % 0.1 % (0.0-0.8); Eosinophils # 0.5 10*3/uL (0.0-0.87); Eosinophils % 5.2 % (0.00-10.9); Hematocrit 30.7 VOL% (35.7-47.0); Hemoglobin 9.7 GM/DL (12.0-16.0); Immature Granulocytes % 0.4 %; Immature Granulocytes Absolute 0.04 #; Lymphocytes # 1.4 10*3/uL (1.4-4.0); Lymphocytes % 15.7 % (21.3-54.2); Mean Corpuscular HGB Conc 31.6 GM/DL (32-36); Mean Corpuscular Hemoglobin 28 PG (27-34); Monocytes # 0.8 10*3/uL (0.11-0.8); Neutrophils # 6.4 10*3/uL (1.4-7.4); Neutrophils % 69.6 % (38.7-73.9); Platelet Count 246 T/CUMM (130-400); Red Blood Count 3.45 MC/CUMM (3.8-5.5); Red Cell Distribution Width 15.5 % (9.3-17.3); White Blood Count 9.1 T/CUMM (4-12)
[2017-04-27 05:06] LABS: Bilirubin,Total 0.5 MG/DL (0.2-1.0); Calcium 7.8 MG/DL (8.5-10.1); Osmolality,Calculated 302.3 MOS/KG (273-304); Potassium 3.3 MMOL/L (3.5-5.1); Total Protein 5.1 G/DL (6.4-8.3)
--- NOTE | 2017-04-27 08:28 | XRay Report ---
Exam: XR chest 1V portable Indication: Intubated, ventilator Comparison study: 04/26/2017 Findings: Again, the endotracheal tube terminates very near the natalia and should be retracted 2 cm. Esophagogastric tube is in similar position. Cardiac silhouette is enlarged, stable from prior. There are diffuse interstitial opacities suggesting a degree of underlying interstitial scarring changes/COPD there are superimposed perihilar and basilar and interstitial and airspace opacities are similar to prior. Moderate bilateral pleural effusions are suspected. No pneumothorax. Impression: Cardiomegaly with stable perihilar and basilar interstitial airspace opacities suggesting interstitial edema changes superimposed on chronic scarring and small to moderate bilateral pleural effusions. Endotracheal tube terminates very near the natalia and should be retracted 2 cm for optimal positioning. Esophagogastric tube is stable position. PROCEDURE INTERPRETED AT [facility] DEPARTMENT OF RADIOLOGY Final Report Signed by: Last Jennings
--- NOTE | 2017-04-27 08:30 | Cardiology Progress Note ---
<Samina Segura E - Last Filed: 04/27/17 08:33> Assessment and Plan - Time spent with patient Time spent with patient: Less than 30 minutes (1) CHF (congestive heart failure) Status: Acute Assessment and plan: See plan of care listed below. Current Visit: Yes Qualifiers: Congestive heart failure type: systolic Congestive heart failure chronicity : acute on chronic Qualified Code(s): I50.23 - Acute on chronic systolic ( congestive) heart failure (2) Pneumonia Status: Acute Assessment and plan: See plan of care listed below. Current Visit: Yes (3) Acute respiratory failure Status: Acute Assessment and plan: See plan of care listed below. Current Visit: Yes (4) Anemia Status: Chronic Assessment and plan: See plan of care listed below. Current Visit: Yes (5) Chronic kidney disease (CKD) Status: Chronic Assessment and plan: See plan of care listed below. Current Visit: Yes Qualifiers: Chronic kidney disease stage: stage 4 (severe) Qualified Code(s): N18.4 - Chronic kidney disease, stage 4 (severe) (6) Aortic insufficiency Status: Chronic Assessment and plan: See plan of care listed below. Current Visit: Yes Qualifiers: Cardiac valve disease etiology: nonrheumatic Qualified Code(s): I35.1 - Nonrheumatic aortic (valve) insufficiency (7) Mitral regurgitation Status: Chronic Assessment and plan: See plan of care listed below. Current Visit: Yes Qualifiers: Cardiac valve disease etiology: nonrheumatic Qualified Code(s): I34.0 - Nonrheumatic mitral (valve) insufficiency (8) Refusal of blood transfusions as patient is Moravian Status: Chronic Assessment and plan: See plan of care listed below. Current Visit: Yes Cardiology - PN: Subj Interval history: Sprigger: Dr. Medley SUMMARY: Ms. Moscoso is a 76 year old female with a history of coronary artery disease, aortic insufficiency, mitral regurgitation, congestive heart failure, diabetes, hyperlipidemia, and hypertension. She is status post non-STEMI with three-vessel CAD (occluded ostial RCA, 70% calcific proximal LAD, 90% proximal circumflex) per left heart catheterization on . She was previously admitted for CHF and NSTEMI and was home for 3 days before returning to the ER with SOB and required intubation. She was discharged from our facility on 04/12/17 to [facility] under the care of Dr. Giovani Monroe. He reviewed all of our studies and he agrees that this is likely moderate valve disease in both the mitral position from the stenosis standpoint and moderate /AI. This is most consistent with her most recent transthoracic echocardiogram on 04/05/17 which revealed an EF of 40-45%, mild LVH, moderate aortic insufficiency, mild mitral insufficiency. She was transferred to our facility from [facility] on 04/24/2017 for further evaluation of shortness of breath. She was intubated in the emergency room and is being housed in the ICU. APRIL 27, 2017 UPDATE: Ms. Moscoso remains on the ventilator. She follows commands and nods appropriately when asked questions. Heart rate and blood pressure have remained stable. She has diuresed well since she has been here. Creatinine is 1.4. Potassium is 3.3 today. She was hyperkalemic upon admission at 6.2. We'll give her a one time dose of 40mEq via NG tube and recheck a potassium level this evening. We will continue to replete as needed. Will avoid resuming her aldactone considering her hyperkalemia on admission. Will further discuss with Dr. Hall and await his additional recommendations. We have received records from [place] in [facility]. Upon reviewing notes from Dr. Monroe and Dr. Low, a BISHNU was performed by Dr. Monroe and he reports she has at most moderate aortic valve disease and relatively mild mitral valve disease which is mixed in nature. He did not feel that she needs an operation on her valve. Her cath films were reviewed and it was thought that correcting the circumflex lesion would not necessarily improve her cardiomyopathy. It was recommended to continue medical management of the chest pain; if that does not improve then stent could be considered. ASSESSMENT/PLAN: 1. CONGESTIVE HEART FAILURE - NYHA Class IV. Recent echocardiogram revealed EF 40-45%. According to her records, her reports that she is noncompliant with fluid restriction at home. 2. PNEUMONIA - Hospital medicine is following. She has been started on IV antibiotics. Pulmonology is following. Hopefully 3. ACUTE RESPIRATORY FAILURE - She was intubated in the ER and is sedated and on mechanical ventilation. Pulmonology is following. Venous Dopplers were negative. She tolerated approximately 4 hours of CPAP trials yesterday. 4. ANEMIA - H&H currently stable at 10.0 and 30.8. 5. CHRONIC KIDNEY DISEASE - Will try to avoid nephrotoxic agents. Creatinine 1.4. Creatinine has improved significantly since holding her ARB. We will place her back on her Imdur. 6. CORONARY ARTERY DISEASE - Continue ASA, beta hector, statin. We will continue with medical therapy at this point. Her occlusive coronary disease is not amenable to percutaneous coronary intervention. She is not an optimal candidate for surgical approach. 7. AORTIC INSUFFICIENCY - Echocardiogram was repeated on 04/05/2017 and revealed EF 40-45%, mild LVH, moderate aortic insufficiency, mild mitral insufficiency. She actually seems to have a better ejection fraction now and her valve disease did not seem severe as previously documented. She was transferred to [facility] on 04/12/17 to the care of Dr. Giovani Monroe; however, she was not felt to be a surgical candidate. We will continue support and diuresis and offloading. 8. MITRAL REGURGITATION - Echocardiogram was repeated on 04/05/2017 and revealed EF 40-45%, mild LVH, moderate aortic insufficiency, mild mitral insufficiency. She actually seems to have a better ejection fraction now and her valve disease did not seem severe as previously documented. 9. REFUSAL OF BLOOD PRODUCTS/JAIN - I have seen Mrs. Moscoso during her most recent admissions and per prior discussions, it should be noted that Ms. Moscoso is a [employer]avian and is unwilling to take someone else' s blood in transfusion. She is willing to consider taking a transfusion from her self at a later time. Exam (Progress Note) - Constitutional Vitals: Period Temp Pulse Resp BP Sys/Pina Pulse Ox Last 24 Hr 97.1 F-98.2 F 53-77 8-26 107-165/40-91 100-100 Exam: General appearance: Orally intubated and sedated on ventilator. Normal weight, no acute distress. - Head Head exam: Present: normal inspection, normocephalic, atraumatic. Absent: hematoma, laceration - Eye Eye exam: Present: EOMI. Absent: conjunctival injection, nystagmus, periorbital swelling, scleral icterus, laceration to eyelids Pupils: Present: PERRL. Absent: constricted, dilated, fixed, irregular, unequal - ENT ENT exam: Present: Orally intubated, normal external ear exam, NG tube in place. - Neck Neck exam: Present: normal inspection. Absent: lymphadenopathy, meningismus, tenderness, thyromegaly - Respiratory Respiratory exam: Present: Mechanically ventilated breath sounds with bibasilar rales. Absent: accessory muscle use - Cardiovascular Cardiovascular exam: Present: regular rate and rhythm. Absent: carotid bruit, gallop, JVD, rubs, murmur - GI/Abdominal GI/Abdominal exam: Present: normal bowel sounds, soft. Absent: distended, firm , guarding, hernia, mass, tenderness, rebound. - Extremities Exam Extremities exam: Present: normal inspection, normal capillary refill. Upper extremity pulses 2+. Lower extremity pulses 2+. 2+ pitting edema to bilateral lower extremities, from feet to thighs. Absent: calf tenderness - Back Exam Back exam: Present: Unable to examine due to habitus. Sedated on mechanical ventilator. - Neurological Exam Neurological exam: Present: Limited due to habitus (on ventilator). Arousable to verbal stimuli. Follows commands and lightly squeezes hands when asked. No resting or essential tremor. - Psychiatric Psychiatric exam: Present: Unable to adequately assess due to patient being sedated and on mechanical ventilation. - Skin Skin exam: Present: normal color, warm, dry, intact. Absent: cyanosis, diaphoretic, rash, urticaria Result/EKG - Labs CBC & BMP: 04/27/17 03:57 04/27/17 03:57 Lab Results: I have reviewed the past 24 hour labs Labs: Laboratory Results - last 24 hr 04/26/17 04/26/17 04/26/17 09:42 11:51 12:42 WBC RBC Hgb Hct MCV MCH MCHC RDW Plt Count MPV Neut % (Auto) Lymph % (Auto) Campbell % (Auto) Eos % (Auto) Baso % (Auto) Neut # (Auto) Lymph # (Auto) Campbell # (Auto) Eos # (Auto) Baso # (Auto) Immature Gran % Nucleated RBC % Immature Gran # Nucleated RBCs # ABG pH 7.458 H ABG pCO2 40.5 ABG pO2 143.0 H ABG HCO3 28.4 H ABG Total CO2 25.7 ABG O2 Saturation 99.4 ABG Base Excess 4.4 H FiO2 50.00 Sodium Potassium 4.2 Chloride Carbon Dioxide Anion Gap BUN Creatinine GFR Calculation BUN/Creatinine Ratio Glucose POC Glucose 186 H Calculated Osmolality Calcium Total Bilirubin AST ALT Alkaline Phosphatase B-Natriuretic Peptide Total Protein Albumin Globulin Albumin/Globulin Ratio 04/26/17 04/27/17 04/27/17 18:16 00:11 02:45 WBC RBC Hgb Hct MCV MCH MCHC RDW Plt Count MPV Neut % (Auto) Lymph % (Auto) Campbell % (Auto) Eos % (Auto) Baso % (Auto) Neut # (Auto) Lymph # (Auto) Campbell # (Auto) Eos # (Auto) Baso # (Auto) Immature Gran % Nucleated RBC % Immature Gran # Nucleated RBCs # ABG pH 7.497 H ABG pCO2 40.3 ABG pO2 218.0 H ABG HCO3 30.5 H ABG Total CO2 31.7 H ABG O2 Saturation 99.0 ABG Base Excess 6.7 H FiO2 50.00 Sodium Potassium Chloride Carbon Dioxide Anion Gap BUN Creatinine GFR Calculation BUN/Creatinine Ratio Glucose POC Glucose 203 H 256 H Calculated Osmolality Calcium Total Bilirubin AST ALT Alkaline Phosphatase B-Natriuretic Peptide Total Protein Albumin Globulin Albumin/Globulin Ratio 04/27/17 04/27/17 04/27/17 03:57 03:57 03:57 WBC 9.1 RBC 3.45 L Hgb 9.7 L Hct 30.7 L MCV 89.0 MCH 28 MCHC 31.6 L RDW 15.5 Plt Count 246 D MPV 10.0 Neut % (Auto) 69.6 Lymph % (Auto) 15.7 L Campbell % (Auto) 9.0 Eos % (Auto) 5.2 Baso % (Auto) 0.1 Neut # (Auto) 6.4 Lymph # (Auto) 1.4 Campbell # (Auto) 0.8 Eos # (Auto) 0.5 Baso # (Auto) 0.0 Immature Gran % 0.4 Nucleated RBC % 0.0 Immature Gran # 0.04 Nucleated RBCs # 0.00 ABG pH ABG pCO2 ABG pO2 ABG HCO3 ABG Total CO2 ABG O2 Saturation ABG Base Excess FiO2 Sodium 148 H Potassium 3.3 L Chloride 111 H Carbon Dioxide 32 Anion Gap 8.3 BUN 30 H Creatinine 1.40 H GFR Calculation 34 BUN/Creatinine Ratio 21.00 H Glucose 145 H POC Glucose Calculated Osmolality 302.3 Calcium 7.8 L Total Bilirubin 0.50 AST 29 ALT 37 Alkaline Phosphatase 138 H B-Natriuretic Peptide 4347 H Total Protein 5.1 L Albumin 2.0 L Globulin 3.1 Albumin/Globulin Ratio 0.6 L 04/27/17 06:13 WBC RBC Hgb Hct MCV MCH MCHC RDW Plt Count MPV Neut % (Auto) Lymph % (Auto) Campbell % (Auto) Eos % (Auto) Baso % (Auto) Neut # (Auto) Lymph # (Auto) Campbell # (Auto) Eos # (Auto) Baso # (Auto) Immature Gran % Nucleated RBC % Immature Gran # Nucleated RBCs # ABG pH ABG pCO2 ABG pO2 ABG HCO3 ABG Total CO2 ABG O2 Saturation ABG Base Excess FiO2 Sodium Potassium Chloride Carbon Dioxide Anion Gap BUN Creatinine GFR Calculation BUN/Creatinine Ratio Glucose POC Glucose 103 Calculated Osmolality Calcium Total Bilirubin AST ALT Alkaline Phosphatase B-Natriuretic Peptide Total Protein Albumin Globulin Albumin/Globulin Ratio - EKG EKG results: interpreted by me, sinus rhythm <Raul Hall - Last Filed: 04/27/17 10:46> Cardiology - PN: Subj Interval history: She appears to be making good progress. Her electrolytes are improving. She has made some good strides with her ventilator and hopefully she can be continued on a weaning trial. I have discussed in detail the particulars of this case and I have examined the patient and reviewed the patient's chart both current and old. I was directly involved in the patient's evaluation and management and I completely agree with Samina Segura NP regarding this patient's evaluation and treatment plan. Exam (Progress Note) - Constitutional Vitals: Period Temp Pulse Resp BP Sys/Pina Pulse Ox Last 24 Hr 97.1 F-98.2 F 53-77 8-26 107-165/40-93 100-100 Result/EKG - Labs CBC & BMP: 04/27/17 03:57 04/27/17 03:57 Labs: Laboratory Results - last 24 hr 04/26/17 04/26/17 04/26/17 11:51 12:42 18:16 WBC RBC Hgb Hct MCV MCH MCHC RDW Plt Count MPV Neut % (Auto) Lymph % (Auto) Campbell % (Auto) Eos % (Auto) Baso % (Auto) Neut # (Auto) Lymph # (Auto) Campbell # (Auto) Eos # (Auto) Baso # (Auto) Immature Gran % Nucleated RBC % Immature Gran # Nucleated RBCs # ABG pH ABG pCO2 ABG pO2 ABG HCO3 ABG Total CO2 ABG O2 Saturation ABG Base Excess FiO2 Sodium Potassium 4.2 Chloride Carbon Dioxide Anion Gap BUN Creatinine GFR Calculation BUN/Creatinine Ratio Glucose POC Glucose 186 H 203 H Calculated Osmolality Calcium Total Bilirubin AST ALT Alkaline Phosphatase B-Natriuretic Peptide Total Protein Albumin Globulin Albumin/Globulin Ratio 04/27/17 04/27/17 04/27/17 00:11 02:45 03:57 WBC RBC Hgb Hct MCV MCH MCHC RDW Plt Count MPV Neut % (Auto) Lymph % (Auto) Campbell % (Auto) Eos % (Auto) Baso % (Auto) Neut # (Auto) Lymph # (Auto) Campbell # (Auto) Eos # (Auto) Baso # (Auto) Immature Gran % Nucleated RBC % Immature Gran # Nucleated RBCs # ABG pH 7.497 H ABG pCO2 40.3 ABG pO2 218.0 H ABG HCO3 30.5 H ABG Total CO2 31.7 H ABG O2 Saturation 99.0 ABG Base Excess 6.7 H FiO2 50.00 Sodium 148 H Potassium 3.3 L Chloride 111 H Carbon Dioxide 32 Anion Gap 8.3 BUN 30 H Creatinine 1.40 H GFR Calculation 34 BUN/Creatinine Ratio 21.00 H Glucose 145 H POC Glucose 256 H Calculated Osmolality 302.3 Calcium 7.8 L Total Bilirubin 0.50 AST 29 ALT 37 Alkaline Phosphatase 138 H B-Natriuretic Peptide Total Protein 5.1 L Albumin 2.0 L Globulin 3.1 Albumin/Globulin Ratio 0.6 L 04/27/17 04/27/17 04/27/17 03:57 03:57 06:13 WBC 9.1 RBC 3.45 L Hgb 9.7 L Hct 30.7 L MCV 89.0 MCH 28 MCHC 31.6 L RDW 15.5 Plt Count 246 D MPV 10.0 Neut % (Auto) 69.6 Lymph % (Auto) 15.7 L Campbell % (Auto) 9.0 Eos % (Auto) 5.2 Baso % (Auto) 0.1 Neut # (Auto) 6.4 Lymph # (Auto) 1.4 Campbell # (Auto) 0.8 Eos # (Auto) 0.5 Baso # (Auto) 0.0 Immature Gran % 0.4 Nucleated RBC % 0.0 Immature Gran # 0.04 Nucleated RBCs # 0.00 ABG pH ABG pCO2 ABG pO2 ABG HCO3 ABG Total CO2 ABG O2 Saturation ABG Base Excess FiO2 Sodium Potassium Chloride Carbon Dioxide Anion Gap BUN Creatinine GFR Calculation BUN/Creatinine Ratio Glucose POC Glucose 103 Calculated Osmolality Calcium Total Bilirubin AST ALT Alkaline Phosphatase B-Natriuretic Peptide 4347 H Total Protein Albumin Globulin Albumin/Globulin Ratio
[2017-04-27] MEDS ORDERED: POTASSIUM CHLORIDE 20 MEQ/15 ML UDCUP PER TUBE ONE (09:00)
[2017-04-27] MEDS: ISOSORBIDE MONONITRATE 30 MG TABLET PO SCH (09:02)
[2017-04-27] MEDS: FUROSEMIDE 40 MG/4 ML VIAL IV SCH (09:02)
[2017-04-27] MEDS: CARVEDILOL 12.5 MG TABLET PO SCH ×2 (09:02→21:06)
[2017-04-27] MEDS: ASPIRIN CHEW 81 MG TABLET PO SCH (09:02)
[2017-04-27] MEDS: MULTIVITAMIN LIQUID (CENTRUM) 60 ML BOTTLE PO SCH (09:03)
--- NOTE | 2017-04-27 11:17 | Pulmonology Progress Note ---
Pulmonary - PN: Subj Interval history: Danilo Haines, [facility] acting as scribe for Dr. Abram Gr This is a 76-year-old black female who we saw in pulmonary consultation on 2016. She had been admitted with acute congestive heart failure and subsequently developed acute respiratory failure requiring intubation mechanical ventilation. At the time of our consultation, our impressions were: 1. Acute congestive heart failure 2. Acute respiratory failure requiring intubation mechanical ventilation. Most likely secondary to acute congestive heart failure. 3. Cannot rule out infiltrate come compatible with pneumonia. 4. Chronic lower extremity edema. Look for deep venous thrombophlebitis #5. Moderate aortic insufficiency and mild mitral regurgitation. See Dr. Bimal Hall's note 6. Three-vessel heart disease with past history of myocardial infarction and past history of congestive heart failure. See Dr. Hall's note 7. Acute on chronic renal failure 8. Hyper ketonemia. 9. Diabetes mellitus. 10. See past history 04/25/2017. Today's chest x-ray shows some improvement in the degree of congestive heart failure but patient is still in heart failure. I agree with continuing diuresis. On mechanical ventilation and FiO2 of 70% ABGs show a pH of 7.5 to, PCO2 32.5, PO2 of 162 with a bicarb of 28.3. This patient is FiO2 is been decreased to 60%. She is on weaning protocol and she is on physical therapy protocol. Natruretic peptide remains elevated 4422. Creatinine is 1.70 down from 2.10 BUNs 29. Sodium is 148. Potassium 3.6 and chloride is 110. White count is dropped to 9100 with 74 segs 15 lymphs. H&H is 9.2/30.0. Total protein and albumin are low at 5.6 and 2.2 respectively. 04/26/2017. Today's chest x-ray is improved. Patient still has congestive heart failure with bilateral pleural effusions, central vascular engorgement and increased interstitial markings in the perihilar areas and also in the bases of the lungs. ABGs on mechanical ventilation FiO2 of 50% shows a pH of 7.46, PCO2 40.5 PO2 143 and a bicarb of 28.4. On 04/25/2017 the patient could not do CPAP but today she is doing very well. As her congestive heart failure resolves I think we will will be able to advance her rapidly. Sodium is 148. Potassium 3.2. Creatinine is dropped 1.60 with a BUN of 27. CBC is stable. Nitrated peptide remains elevated 4706. Protein and albumin are low at 5.4 and 2.2 respectively liver function tests have been 04/27/2017. Patient's chest x-ray is stable to slightly improved. BNP is 4347. ABGs this morning on mechanical ventilation and an FiO2 of 50% showed a pH of 7.497, PCO2 40.3, PO2 218.0, bicarb 30.5, and oxygen saturation 99.0%. We are continuing with the weaning protocol as tolerated. Patient is presently on stage III of the weaning protocol. Cold agglutinins are negative at 1:2. Medications have been reviewed. We made no changes today. Labs been reviewed. White count is 9100 with a normal differential; H&H 9.7/ 30.7; platelet count 246,000; creatinine has further improved to 1.40, BUN 30, sodium 148, potassium 3.3; liver function tests within normal limits; calcium is low at 7.8 reflected in a low albumin of 2.0, total protein 5.1 Microbiology has been reviewed. Catheterized urine obtained 04/24/2017 is growing a gram positive cocci. Final ID and sensitivities are pending. Blood cultures are negative at day 3. MRSA screen of the nares was negative.Sputum Gram stain showed few gram-positive cocci. Sputum culture showed normal coco at 24 hours. Exam (Progress Note) - Constitutional Vitals: Period Temp Pulse Resp BP Sys/Pina Pulse Ox Last 24 Hr 97.1 F-98.2 F 53-77 8-26 107-165/40-93 100-100 Exam: Chest with bibasilar rales Heart with a diffuse lateral PMI Abdomen is nontender and nondistended; rare bowel sounds Extremities with nothing to suggest acute deep venous thrombophlebitis; there are chronic venous stasis changes noted Psychiatric alert, oriented, and able to cooperate Neurologic moves all 4 extremities Plan: Continue with the weaning protocol as tolerated. Follow-up urine culture when available. Replace potassium, but will defer this to her attending. See orders. Results - Labs CBC & BMP: 04/27/17 03:57 04/27/17 03:57
[2017-04-27] MEDS: PROPOFOL 1,000 MG/100 ML BOTTLE IV SCH (12:40)
--- NOTE | 2017-04-27 13:23 | Hospitalist Progress Note ---
Assessment and Plan (1) Congestive heart failure Status: Chronic Assessment and plan: The patient is admitted to the hospital with respiratory failure due to pulmonary edema in the face of coronary and valvular heart disease. The patient has been stabilized. The patient is tolerating tube feedings. We hope to wean the patient as volume status improves. Current Visit: No Qualifiers: Congestive heart failure type: combined Congestive heart failure chronicity : acute on chronic Qualified Code(s): I50.43 - Acute on chronic combined systolic (congestive) and diastolic (congestive) heart failure (2) Mitral regurgitation Status: Chronic Current Visit: Yes Qualifiers: Cardiac valve disease etiology: nonrheumatic Qualified Code(s): I34.0 - Nonrheumatic mitral (valve) insufficiency (3) Aortic valve stenosis Status: Acute Current Visit: No Hospitalist: Subjective Interval history: Mrs. Moscoso continues on ventilator. Weaning protocols in place and the patient is making incremental progress. She has no new complaints today. Exam - Constitutional Vitals: Period Temp Pulse Resp BP Sys/Pina Pulse Ox Last 24 Hr 97.1 F-98.2 F 53-77 8-25 107-165/40-93 100-100 Exam: Constitutional System: Mild distress. No tremulousness. The patient is orally intubated and mechanically ventilated Head: Normocephalic, atraumatic. Ears, Nose and Throat System: No evidence of Otitis or Mastoiditis. No epistaxis or discharge Eyes System: Pupils equal, round, and reactive. Extraocular muscles intact. Neck: Supple, without adenopathy, No jugular venous distention. No thyromegaly , neck mass, or prior surgery apparent. Respiratory System: Chest clear to auscultation. Cardiovascular System: Heart with regular rate and rhythm. 3/6 systolic murmur. GI System: Abdomen soft, nontender. Normo active bowel sounds present. Musculoskeletal System: limbs with no pedal edema. Full distal pulses. Neurological System: No discernable sensory deficit. Results - Labs CBC & BMP: 04/27/17 03:57 04/27/17 03:57 Lab Results: I have reviewed the past 24 hour labs
[2017-04-27] MEDS: POTASSIUM CHLORIDE 20 MEQ/15 ML UDCUP PER TUBE SCH ×2 (14:27→17:58)
[2017-04-27] MEDS: PANTOPRAZOLE 40 MG VIAL IV SCH (15:40)
[2017-04-27] MEDS: ACETAMINOPHEN 500 MG TABLET PO PRN (17:58)
[2017-04-27] MEDS: ATORVASTATIN 80 MG TABLET PO SCH (21:06)
[2017-04-28] MEDS: INSULIN REGULAR 100 UNIT/ML SUBCUT SCH ×4 (00:48→17:55)
[2017-04-28] MEDS: PROPOFOL 1,000 MG/100 ML BOTTLE IV SCH ×2 (00:49→12:46)
[2017-04-28 03:29] LABS: Allen Test Positive; Pt O2 Delivery Device Ventilator
[2017-04-28 03:31] LABS: ABG Base Excess 5.5 MMOL/L (-2.5-2.5); ABG HCO3 29.4 MMOL/L (20-26); ABG Oxygen Saturation 99.9 % (95-100); ABG PCO2 45.9 MM HG (35-48)
[2017-04-28 04:18] LABS: Basophils % 0.1 % (0.0-0.8); Eosinophils # 0.4 10*3/uL (0.0-0.87); Eosinophils % 3.9 % (0.00-10.9); Hematocrit 30.2 VOL% (35.7-47.0); Hemoglobin 9.2 GM/DL (12.0-16.0); Immature Granulocytes % 0.4 %; Immature Granulocytes Absolute 0.04 #; Lymphocytes # 1.2 10*3/uL (1.4-4.0); Lymphocytes % 10.4 % (21.3-54.2); Mean Corpuscular HGB Conc 30.5 GM/DL (32-36); Mean Corpuscular Hemoglobin 28 PG (27-34); Mean Corpuscular Volume 91.2 FL (87-102); Mean Platelet Volume 10.5 FL (9.6-12.0); Monocytes # 1.1 10*3/uL (0.11-0.8); Neutrophils # 8.5 10*3/uL (1.4-7.4); Neutrophils % 75.2 % (38.7-73.9); Platelet Count 232 T/CUMM (130-400); Red Blood Count 3.31 MC/CUMM (3.8-5.5); Red Cell Distribution Width 15.1 % (9.3-17.3); White Blood Count 11.3 T/CUMM (4-12)
[2017-04-28 04:52] LABS: Albumin 1.9 G/DL (3.4-5.0); Bilirubin,Total 0.8 MG/DL (0.2-1.0); Calcium 8.6 MG/DL (8.5-10.1); Osmolality,Calculated 307.9 MOS/KG (273-304); Potassium 4.4 MMOL/L (3.5-5.1); Total Protein 5.3 G/DL (6.4-8.3)
[2017-04-28] MEDS ORDERED: POTASSIUM CHLORIDE 20 MEQ/15 ML UDCUP PER TUBE PRN ×2 (07:27→07:31)
--- NOTE | 2017-04-28 07:28 | Cardiology Progress Note ---
<Samina Segura E - Last Filed: 04/28/17 07:23> Assessment and Plan - Time spent with patient Time spent with patient: Less than 30 minutes (1) CHF (congestive heart failure) Status: Acute Assessment and plan: See plan of care listed below. Current Visit: Yes Qualifiers: Congestive heart failure type: systolic Congestive heart failure chronicity : acute on chronic Qualified Code(s): I50.23 - Acute on chronic systolic ( congestive) heart failure (2) Pneumonia Status: Acute Assessment and plan: See plan of care listed below. Current Visit: Yes (3) Acute respiratory failure Status: Acute Assessment and plan: See plan of care listed below. Current Visit: Yes (4) Anemia Status: Chronic Assessment and plan: See plan of care listed below. Current Visit: Yes (5) Chronic kidney disease (CKD) Status: Chronic Assessment and plan: See plan of care listed below. Current Visit: Yes Qualifiers: Chronic kidney disease stage: stage 4 (severe) Qualified Code(s): N18.4 - Chronic kidney disease, stage 4 (severe) (6) Aortic insufficiency Status: Chronic Assessment and plan: See plan of care listed below. Current Visit: Yes Qualifiers: Cardiac valve disease etiology: nonrheumatic Qualified Code(s): I35.1 - Nonrheumatic aortic (valve) insufficiency (7) Mitral regurgitation Status: Chronic Assessment and plan: See plan of care listed below. Current Visit: Yes Qualifiers: Cardiac valve disease etiology: nonrheumatic Qualified Code(s): I34.0 - Nonrheumatic mitral (valve) insufficiency (8) Refusal of blood transfusions as patient is Christian Status: Chronic Assessment and plan: See plan of care listed below. Current Visit: Yes Cardiology - PN: Subj Interval history: [employer] Reproducer: Dr. Medley SUMMARY: Ms. Moscoso is a 76 year old female with a history of coronary artery disease, aortic insufficiency, mitral regurgitation, congestive heart failure, diabetes, hyperlipidemia, and hypertension. She is status post non-STEMI with three-vessel CAD (occluded ostial RCA, 70% calcific proximal LAD, 90% proximal circumflex) per left heart catheterization on . She was previously admitted for CHF and NSTEMI and was home for 3 days before returning to the ER with SOB and required intubation. She was discharged from our facility on 04/12/17 to [facility] under the care of Dr. Giovani Monroe. He reviewed all of our studies and he agrees that this is likely moderate valve disease in both the mitral position from the stenosis standpoint and moderate /AI. This is most consistent with her most recent transthoracic echocardiogram on 04/05/17 which revealed an EF of 40-45%, mild LVH, moderate aortic insufficiency, mild mitral insufficiency. She was transferred to our facility from [facility] on 04/24/2017 for further evaluation of shortness of breath. She was intubated in the emergency room and is being housed in the ICU. APRIL 28, 2017 UPDATE: Ms. Moscoso remains on the ventilator. She follows commands and nods appropriately when asked questions. Heart rate and blood pressure have remained stable. She has diuresed well since she has been here. Creatinine is 1.4. Potassium is 4.4 today. She was hyperkalemic upon admission at 6.2. We will continue to replete as needed. Will avoid resuming her aldactone considering her hyperkalemia on admission. Her nurses tell me that yesterday she actually sat up in the chair at the bedside for a couple of hours while on the ventilator. Will further discuss with Dr. Hall and await his additional recommendations. We have received records from [facility] in [facility]. Upon reviewing notes from Dr. Monroe and Dr. Low, a BISHNU was performed by Dr. Monroe and he reports she has at most moderate aortic valve disease and relatively mild mitral valve disease which is mixed in nature. He did not feel that she needs an operation on her valve. Her cath films were reviewed and it was thought that correcting the circumflex lesion would not necessarily improve her cardiomyopathy. It was recommended to continue medical management of the chest pain; if that does not improve then stent could be considered. ASSESSMENT/PLAN: 1. CONGESTIVE HEART FAILURE - NYHA Class IV. Recent echocardiogram revealed EF 40-45%. According to her records, her reports that she is noncompliant with fluid restriction at home. 2. PNEUMONIA - Hospital medicine is following. She has been started on IV antibiotics. Pulmonology is following. 3. ACUTE RESPIRATORY FAILURE - She was intubated in the ER and is on mechanical ventilation. Pulmonology is following. Venous Dopplers were negative. She is tolerating CPAP trials well and hopefully will be extubated soon. 4. ANEMIA - H&H currently stable at 9.2 and 30.2. 5. CHRONIC KIDNEY DISEASE - Will try to avoid nephrotoxic agents. Creatinine 1.4. Creatinine has improved significantly since holding her ARB. We will place her back on her Imdur. 6. CORONARY ARTERY DISEASE - Continue ASA, beta hector, statin. We will continue with medical therapy at this point. Her occlusive coronary disease is not amenable to percutaneous coronary intervention. She is not an optimal candidate for surgical approach. 7. AORTIC INSUFFICIENCY - Echocardiogram was repeated on 04/05/2017 and revealed EF 40-45%, mild LVH, moderate aortic insufficiency, mild mitral insufficiency. She actually seems to have a better ejection fraction now and her valve disease did not seem severe as previously documented. She was transferred to [facility] on 04/12/17 to the care of Dr. Giovani Monroe; however, she was not felt to be a surgical candidate. We will continue support and diuresis and offloading. 8. MITRAL REGURGITATION - Echocardiogram was repeated on 04/05/2017 and revealed EF 40-45%, mild LVH, moderate aortic insufficiency, mild mitral insufficiency. She actually seems to have a better ejection fraction now and her valve disease did not seem severe as previously documented. 9. REFUSAL OF BLOOD PRODUCTS/CATHOLIC - I have seen Mrs. Moscoso during her most recent admissions and per prior discussions, it should be noted that Ms. Moscoso is a Christian and is unwilling to take someone else' s blood in transfusion. She is willing to consider taking a transfusion from her self at a later time. Exam (Progress Note) - Constitutional Vitals: Period Temp Pulse Resp BP Sys/Pina Pulse Ox Last 24 Hr 97.6 F-97.9 F 58-100 8-26 111-187/36-93 100-100 Exam: General appearance: Orally intubated and on ventilator. Normal weight, no acute distress. - Head Head exam: Present: normal inspection, normocephalic, atraumatic. Absent: hematoma, laceration - Eye Eye exam: Present: EOMI. Absent: conjunctival injection, nystagmus, periorbital swelling, scleral icterus, laceration to eyelids Pupils: Present: PERRL. Absent: constricted, dilated, fixed, irregular, unequal - ENT ENT exam: Present: Orally intubated, normal external ear exam, NG tube in place. - Neck Neck exam: Present: normal inspection. Absent: lymphadenopathy, meningismus, tenderness, thyromegaly - Respiratory Respiratory exam: Present: Mechanically ventilated breath sounds. Absent: accessory muscle use - Cardiovascular Cardiovascular exam: Present: regular rate and rhythm, systolic murmur. Absent : carotid bruit, gallop, JVD, rubs - GI/Abdominal GI/Abdominal exam: Present: normal bowel sounds, soft. Absent: distended, firm , guarding, hernia, mass, tenderness, rebound. - Extremities Exam Extremities exam: Present: normal inspection, normal capillary refill. Upper extremity pulses 2+. Lower extremity pulses 2+. trace edema to left lower extremity. Right lower extremity without edema. Absent: calf tenderness - Back Exam Back exam: Present: Unable to examine due to habitus. On mechanical ventilation. - Neurological Exam Neurological exam: Present: Limited due to habitus (on ventilator). Arousable to verbal stimuli. Follows commands and squeezes hands when asked. No resting or essential tremor. - Psychiatric Psychiatric exam: Present: Unable to adequately assess due to patient being on mechanical ventilation. - Skin Skin exam: Present: normal color, warm, dry, intact. Absent: cyanosis, diaphoretic, rash, urticaria Result/EKG - Labs CBC & BMP: 04/28/17 03:55 04/28/17 03:55 Lab Results: I have reviewed the past 24 hour labs Labs: Laboratory Results - last 24 hr 04/27/17 04/27/17 04/27/17 11:50 18:03 18:44 WBC RBC Hgb Hct MCV MCH MCHC RDW Plt Count MPV Neut % (Auto) Lymph % (Auto) Hardin % (Auto) Eos % (Auto) Baso % (Auto) Neut # (Auto) Lymph # (Auto) Hardin # (Auto) Eos # (Auto) Baso # (Auto) Immature Gran % Nucleated RBC % Immature Gran # Nucleated RBCs # ABG pH ABG pCO2 ABG pO2 ABG HCO3 ABG Total CO2 ABG O2 Saturation ABG Base Excess FiO2 Sodium Potassium 5.4 H Chloride Carbon Dioxide Anion Gap BUN Creatinine GFR Calculation BUN/Creatinine Ratio Glucose POC Glucose 133 H 271 H Calculated Osmolality Calcium Total Bilirubin AST ALT Alkaline Phosphatase B-Natriuretic Peptide Total Protein Albumin Globulin Albumin/Globulin Ratio 04/27/17 04/28/17 04/28/17 23:19 03:05 03:55 WBC RBC Hgb Hct MCV MCH MCHC RDW Plt Count MPV Neut % (Auto) Lymph % (Auto) Hardin % (Auto) Eos % (Auto) Baso % (Auto) Neut # (Auto) Lymph # (Auto) Hardin # (Auto) Eos # (Auto) Baso # (Auto) Immature Gran % Nucleated RBC % Immature Gran # Nucleated RBCs # ABG pH 7.430 ABG pCO2 45.9 ABG pO2 196.0 H ABG HCO3 29.4 H ABG Total CO2 28.0 H ABG O2 Saturation 99.9 ABG Base Excess 5.5 H FiO2 50.00 Sodium 151 H Potassium 4.4 Chloride 115 H Carbon Dioxide 30 Anion Gap 10.4 BUN 33 H Creatinine 1.40 H GFR Calculation 34 BUN/Creatinine Ratio 23.00 H Glucose 137 H POC Glucose 182 H Calculated Osmolality 307.9 H Calcium 8.6 Total Bilirubin 0.80 AST 48 H ALT 42 Alkaline Phosphatase 160 H B-Natriuretic Peptide Total Protein 5.3 L Albumin 1.9 L Globulin 3.4 Albumin/Globulin Ratio 0.5 L 04/28/17 04/28/17 04/28/17 03:55 03:55 05:37 WBC 11.3 RBC 3.31 L Hgb 9.2 L Hct 30.2 L MCV 91.2 MCH 28 MCHC 30.5 L RDW 15.1 Plt Count 232 MPV 10.5 Neut % (Auto) 75.2 H Lymph % (Auto) 10.4 L Hardin % (Auto) 10.0 Eos % (Auto) 3.9 Baso % (Auto) 0.1 Neut # (Auto) 8.5 H Lymph # (Auto) 1.2 L Hardin # (Auto) 1.1 H Eos # (Auto) 0.4 Baso # (Auto) 0.0 Immature Gran % 0.4 Nucleated RBC % 0.0 Immature Gran # 0.04 Nucleated RBCs # 0.00 ABG pH ABG pCO2 ABG pO2 ABG HCO3 ABG Total CO2 ABG O2 Saturation ABG Base Excess FiO2 Sodium Potassium Chloride Carbon Dioxide Anion Gap BUN Creatinine GFR Calculation BUN/Creatinine Ratio Glucose POC Glucose 184 H Calculated Osmolality Calcium Total Bilirubin AST ALT Alkaline Phosphatase B-Natriuretic Peptide 3149 H Total Protein Albumin Globulin Albumin/Globulin Ratio - EKG EKG results: interpreted by me, sinus rhythm <Raul Hall - Last Filed: 04/28/17 10:32> Cardiology - PN: Subj Interval history: Patient looks comfortable on the ventilator. She is tolerating CPAP trials and hopefully can be extubated fairly soon. I think overall she is stable and doing well without problems from a cardiac standpoint hopefully we can continue progressing to the point that she is extubated. I have discussed in detail the particulars of this case and I have examined the patient and reviewed the patient's chart both current and old. I was directly involved in the patient's evaluation and management and I completely agree with Samina Segura NP regarding this patient's evaluation and treatment plan. Exam (Progress Note) - Constitutional Vitals: Period Temp Pulse Resp BP Sys/Pina Pulse Ox Last 24 Hr 97.7 F-97.9 F 58-100 7-26 111-187/36-86 100-100 Result/EKG - Labs CBC & BMP: 04/28/17 03:55 04/28/17 03:55 Labs: Laboratory Results - last 24 hr 04/27/17 04/27/17 04/27/17 11:50 18:03 18:44 WBC RBC Hgb Hct MCV MCH MCHC RDW Plt Count MPV Neut % (Auto) Lymph % (Auto) Hardin % (Auto) Eos % (Auto) Baso % (Auto) Neut # (Auto) Lymph # (Auto) Hardin # (Auto) Eos # (Auto) Baso # (Auto) Immature Gran % Nucleated RBC % Immature Gran # Nucleated RBCs # ABG pH ABG pCO2 ABG pO2 ABG HCO3 ABG Total CO2 ABG O2 Saturation ABG Base Excess FiO2 Sodium Potassium 5.4 H Chloride Carbon Dioxide Anion Gap BUN Creatinine GFR Calculation BUN/Creatinine Ratio Glucose POC Glucose 133 H 271 H Calculated Osmolality Calcium Total Bilirubin AST ALT Alkaline Phosphatase B-Natriuretic Peptide Total Protein Albumin Globulin Albumin/Globulin Ratio 04/27/17 04/28/17 04/28/17 23:19 03:05 03:55 WBC RBC Hgb Hct MCV MCH MCHC RDW Plt Count MPV Neut % (Auto) Lymph % (Auto) Hardin % (Auto) Eos % (Auto) Baso % (Auto) Neut # (Auto) Lymph # (Auto) Hardin # (Auto) Eos # (Auto) Baso # (Auto) Immature Gran % Nucleated RBC % Immature Gran # Nucleated RBCs # ABG pH 7.430 ABG pCO2 45.9 ABG pO2 196.0 H ABG HCO3 29.4 H ABG Total CO2 28.0 H ABG O2 Saturation 99.9 ABG Base Excess 5.5 H FiO2 50.00 Sodium 151 H Potassium 4.4 Chloride 115 H Carbon Dioxide 30 Anion Gap 10.4 BUN 33 H Creatinine 1.40 H GFR Calculation 34 BUN/Creatinine Ratio 23.00 H Glucose 137 H POC Glucose 182 H Calculated Osmolality 307.9 H Calcium 8.6 Total Bilirubin 0.80 AST 48 H ALT 42 Alkaline Phosphatase 160 H B-Natriuretic Peptide Total Protein 5.3 L Albumin 1.9 L Globulin 3.4 Albumin/Globulin Ratio 0.5 L 04/28/17 04/28/17 04/28/17 03:55 03:55 05:37 WBC 11.3 RBC 3.31 L Hgb 9.2 L Hct 30.2 L MCV 91.2 MCH 28 MCHC 30.5 L RDW 15.1 Plt Count 232 MPV 10.5 Neut % (Auto) 75.2 H Lymph % (Auto) 10.4 L Hardin % (Auto) 10.0 Eos % (Auto) 3.9 Baso % (Auto) 0.1 Neut # (Auto) 8.5 H Lymph # (Auto) 1.2 L Hardin # (Auto) 1.1 H Eos # (Auto) 0.4 Baso # (Auto) 0.0 Immature Gran % 0.4 Nucleated RBC % 0.0 Immature Gran # 0.04 Nucleated RBCs # 0.00 ABG pH ABG pCO2 ABG pO2 ABG HCO3 ABG Total CO2 ABG O2 Saturation ABG Base Excess FiO2 Sodium Potassium Chloride Carbon Dioxide Anion Gap BUN Creatinine GFR Calculation BUN/Creatinine Ratio Glucose POC Glucose 184 H Calculated Osmolality Calcium Total Bilirubin AST ALT Alkaline Phosphatase B-Natriuretic Peptide 3149 H Total Protein Albumin Globulin Albumin/Globulin Ratio
--- NOTE | 2017-04-28 07:36 | XRay Report ---
Exam: XR chest/abdomen 1V portable Date: 04/27/2017 11:41 PM Indication: Nasogastric tube placement Comparison: 04/27/2017 Technical: Chest and upper abdomen were obtained the right chest is not included entirely nor the right abdomen or pelvis Findings: Endotracheal tube is at the level of the carinal region. Nasogastric tube is along the greater curvature the stomach. Cardiomegaly is present. Underlying low volume effusions and alveolar edema present. The liver shadow spleen shadow and renal shadows are partially obscured. Nonspecific GI pattern is present. No pneumothorax Impression: 1. Nasogastric tube along the greater curvature of stomach 2. Endotracheal tube at the level of the natalia. 3. Low-volume effusions alveolar edema and/or infiltrates. 4. Moderate fecal debris left: PROCEDURE INTERPRETED AT [facility] DEPARTMENT OF RADIOLOGY Final Report Signed by: Dr. Abram Garcia
--- NOTE | 2017-04-28 09:31 | XRay Report ---
Exam: XR chest 1V portable Date: 04/28/2017 8:27 AM Indication: Follow-up ventilator respiratory distress failure Comparison: 04/27/2017 Technical: AP Findings: Endotracheal tube is located at the level of the natalia. Low volume effusions and atelectatic changes are present bilaterally with mild shunt vascularity. Cardiomegaly is noted. Nasogastric tube is present. External cardiac leads are present. No pneumothorax. Bony structures are intact. ASVD is present. Impression: 1. Endotracheal tube at the level of natalia 2. Stable position of the nasogastric tube 3. Low volume effusions atelectatic change 4. Cardiomegaly with shunt vascularity CHF suspected PROCEDURE INTERPRETED AT [facility] DEPARTMENT OF RADIOLOGY Final Report Signed by: Dr. Abram Garcia
[2017-04-28] MEDS: ISOSORBIDE MONONITRATE 30 MG TABLET PO SCH (10:03)
[2017-04-28] MEDS: CARVEDILOL 12.5 MG TABLET PO SCH ×2 (10:03→21:03)
[2017-04-28] MEDS: FUROSEMIDE 40 MG/4 ML VIAL IV SCH (10:04)
[2017-04-28] MEDS: MULTIVITAMIN LIQUID (CENTRUM) 60 ML BOTTLE PO SCH (10:04)
[2017-04-28] MEDS: ASPIRIN CHEW 81 MG TABLET PO SCH (10:04)
--- NOTE | 2017-04-28 11:04 | Pulmonology Progress Note ---
Pulmonary - PN: Subj Interval history: This is a 76-year-old black female whom I saw in pulmonary consultation on 2016. She had been admitted with acute congestive heart failure and subsequently developed acute respiratory failure requiring intubation mechanical ventilation. My impressions were. 1. Acute congestive heart failure 2. Acute respiratory failure requiring intubation mechanical ventilation. Most likely secondary to acute congestive heart failure. 3. Cannot rule out infiltrate come compatible with pneumonia. 4. Chronic lower extremity edema. Look for deep venous thrombophlebitis #5. Moderate aortic insufficiency and mild mitral regurgitation. See Dr. Bimal Hall's note 6. Three-vessel heart disease with past history of myocardial infarction and past history of congestive heart failure. See Dr. Hall's note 7. Acute on chronic renal failure 8. Hyper ketonemia. 9. Diabetes mellitus. 10. See past history 04/25/2017. Today's chest x-ray shows some improvement in the degree of congestive heart failure but patient is still in heart failure. I agree with continuing diuresis. On mechanical ventilation and FiO2 of 70% ABGs show a pH of 7.5 to, PCO2 32.5, PO2 of 162 with a bicarb of 28.3. This patient is FiO2 is been decreased to 60%. She is on weaning protocol and she is on physical therapy protocol. Natruretic peptide remains elevated 4422. Creatinine is 1.70 down from 2.10 BUNs 29. Sodium is 148. Potassium 3.6 and chloride is 110. White count is dropped to 9100 with 74 segs 15 lymphs. H&H is 9.2/30.0. Total protein and albumin are low at 5.6 and 2.2 respectively. 04/26/2017. Today's chest x-ray is improved. Patient still has congestive heart failure with bilateral pleural effusions, central vascular engorgement and increased interstitial markings in the perihilar areas and also in the bases of the lungs. ABGs on mechanical ventilation FiO2 of 50% shows a pH of 7.46, PCO2 40.5 PO2 143 and a bicarb of 28.4. On 04/25/2017 the patient could not do CPAP but today she is doing very well. As her congestive heart failure resolves I think we will will be able to advance her rapidly. Sodium is 148. Potassium 3.2. Creatinine is dropped 1.60 with a BUN of 27. CBC is stable. Nitrated peptide remains elevated 4706. Protein and albumin are low at 5.4 and 2.2 respectively liver function tests have been 04/28/2017. Patient is doing well on stage IV weaning protocol. I tried her briefly on the T-tube that she is not yet ready. Her chest x-ray shows continuous improvement of her congestive heart failure. This has not resolved. She still has bilateral pleural effusions that she has central vascular congestion. Once her heart failure resolves she should come off the ventilator fairly easily. ABGs on mechanical ventilation and FiO2 of 50% shows a pH of 7.43, PCO2 of 46, PO2 of 196 and a bicarb of 29.4. Sodium is high at 151. Potassium is 4.4. Creatinine is stable at 1.4 and BUN is 33. White count 11, 300 with 75 segs. H&H 9.2/30.2 and platelets are 232,000. Natruretic peptide remains elevated 3149. Protein and albumin low at 5.3 and 1.9 respectively. Urine cultures are growing Enterobacter so I have started the patient on Levaquin. Physical exam. Vital signs. See below Neurologic. Cranial nerves are intact. Patient moves all 4 extremities Psychiatric. Alert oriented and able to cooperate Face. Symmetrical. No swelling of tongue or lips Neck. Symmetrical no meningismus. Chest. Bibasilar rales Heart. Lateral PMI Abdomen. Nondistended. Very rare bowel sounds Lower extremities. Chronic venous stasis changes. Lymphatics. No submandibular cervical supraclavicular or epitrochlear adenopathy The remainder the exam is noncontributory. Plan. 04/24/2017 1. Mechanical ventilation. Mechanical ventilation weaning protocol mechanical ventilation physical therapy protocol 2. Agree with antibiotics until chest x-ray status is better clarified 3. Sputum for Gram stain culture sensitivity 4. Cold agglutinins 5. Doppler venograms of lower extremities 6. Daily chest x-ray ABGs and lab 04/25/2017. 1. See today's note above. Congestive heart failure better but not resolved 2. Weaning protocol 3. Physical therapy protocol 4. Once congestive heart failure is resolved I think the patient can be rapidly extubated. 04/26/2017. 1. See today's note above. 2. Much better and weaning protocol today. Should move rapidly if her pulmonary edema will resolve rapidly 04/28/2017. 1. See today's note above. 2. Enterobacter. Levaquin. 3. Stage IV weaning protocol 4. Slowly resolving congestive heart failure 5. Daily chest x-ray ABGs and lab Exam (Progress Note) - Constitutional Vitals: Period Temp Pulse Resp BP Sys/Pina Pulse Ox Last 24 Hr 97.7 F-97.9 F 58-100 7-26 111-187/36-86 100-100 Results - Labs CBC & BMP: 04/28/17 03:55 04/28/17 03:55
[2017-04-28] MEDS: LEVOFLOXACIN INJ 250 MG in PREMIX 1 EACH IV SCH (11:33)
--- NOTE | 2017-04-28 13:58 | Hospitalist Progress Note ---
Assessment and Plan (1) Congestive heart failure Status: Chronic Assessment and plan: The patient is admitted to the hospital with respiratory failure due to pulmonary edema in the face of coronary and valvular heart disease. The patient has been stabilized. The patient is tolerating tube feedings. We hope to wean the patient as volume status improves. Renal function is beginning to show azotemia. The patient is likely near her dry weight. Current Visit: No Qualifiers: Congestive heart failure type: combined Congestive heart failure chronicity : acute on chronic Qualified Code(s): I50.43 - Acute on chronic combined systolic (congestive) and diastolic (congestive) heart failure (2) Mitral regurgitation Status: Chronic Current Visit: Yes Qualifiers: Cardiac valve disease etiology: nonrheumatic Qualified Code(s): I34.0 - Nonrheumatic mitral (valve) insufficiency (3) Aortic valve stenosis Status: Acute Current Visit: No Hospitalist: Subjective Interval history: The patient is awake and alert. She is breathing quietly on the ventilator. Oxygenation has improved in the last 24 hours. Exam - Constitutional Vitals: Period Temp Pulse Resp BP Sys/Pina Pulse Ox Last 24 Hr 97.7 F-98.9 F 58-100 7-26 111-187/36-88 100-100 Exam: Constitutional System: Mild distress. No tremulousness. The patient is orally intubated and mechanically ventilated Head: Normocephalic, atraumatic. Ears, Nose and Throat System: No evidence of Otitis or Mastoiditis. No epistaxis or discharge Eyes System: Pupils equal, round, and reactive. Extraocular muscles intact. Neck: Supple, without adenopathy, No jugular venous distention. No thyromegaly , neck mass, or prior surgery apparent. Respiratory System: Chest clear to auscultation. Cardiovascular System: Heart with regular rate and rhythm. 3/6 systolic murmur. GI System: Abdomen soft, nontender. Normo active bowel sounds present. Musculoskeletal System: limbs with no pedal edema. Full distal pulses. Neurological System: No discernable sensory deficit. Results - Labs CBC & BMP: 04/28/17 03:55 04/28/17 03:55 Lab Results: I have reviewed the past 24 hour labs
[2017-04-28] MEDS: ACETAMINOPHEN 500 MG TABLET PO PRN (15:45)
[2017-04-28] MEDS: PANTOPRAZOLE 40 MG VIAL IV SCH (15:46)
[2017-04-28] MEDS: ATORVASTATIN 80 MG TABLET PO SCH (21:03)
[2017-04-29] MEDS: INSULIN REGULAR 100 UNIT/ML SUBCUT SCH ×4 (00:01→18:28)
[2017-04-29 03:38] LABS: ABG Base Excess 7.3 MMOL/L (-2.5-2.5); ABG HCO3 31.1 MMOL/L (20-26); ABG Oxygen Saturation 99.8 % (95-100); ABG PCO2 36.9 MM HG (35-48); ABG PH 7.525 (7.35-7.45); ABG TCO2 27.7 MMOL/L (23-27); Allen Test Positive; Pt O2 Delivery Device Ventilator
[2017-04-29 04:44] LABS: Basophils % 0.1 % (0.0-0.8); Eosinophils # 0.2 10*3/uL (0.0-0.87); Eosinophils % 2.3 % (0.00-10.9); Hematocrit 31.4 VOL% (35.7-47.0); Hemoglobin 9.7 GM/DL (12.0-16.0); Immature Granulocytes % 0.5 %; Immature Granulocytes Absolute 0.05 #; Lymphocytes # 1.4 10*3/uL (1.4-4.0); Lymphocytes % 13.5 % (21.3-54.2); Mean Corpuscular HGB Conc 30.9 GM/DL (32-36); Mean Corpuscular Hemoglobin 28 PG (27-34); Mean Corpuscular Volume 89.7 FL (87-102); Mean Platelet Volume 10.8 FL (9.6-12.0); Monocytes # 0.8 10*3/uL (0.11-0.8); Monocytes % 7.8 % (1.7-12.7); Neutrophils # 7.7 10*3/uL (1.4-7.4); Neutrophils % 75.8 % (38.7-73.9); Platelet Count 244 T/CUMM (130-400); Red Cell Distribution Width 14.8 % (9.3-17.3); White Blood Count 10.2 T/CUMM (4-12)
[2017-04-29 05:27] LABS: Eosinophils 1 % (0-10); Hypochromasia 1+; Lymphocytes 13 % (20-55); Microcytosis Slight; Segmented Neutrophils 82 % (50-85); Total Cells Counted 100
[2017-04-29 05:28] LABS: Platelet Estimate Normal
[2017-04-29 05:33] LABS: Calcium 8.8 MG/DL (8.5-10.1); Magnesium 2.3 MG/DL (1.8-2.4); Osmolality,Calculated 302.3 MOS/KG (273-304); Potassium 3.7 MMOL/L (3.5-5.1)
--- NOTE | 2017-04-29 06:07 | Pulmonology Progress Note ---
Pulmonary - PN: Subj Interval history: This 76-year-old lady has congestive heart failure and is on the ventilator. She has improved and is doing CPAP's. Does have some hyponatremia. Being treated for urinary tract infection. Chest x-ray is stable. Patient is alert and calm. Exam (Progress Note) - Constitutional Vitals: Period Temp Pulse Resp BP Sys/Pina Pulse Ox Last 24 Hr 97.9 F-98.9 F 53-67 7-21 129-166/43-88 84-100 Exam: Patient responsive. Vital signs normal. Pupils react to light. Orotracheal tube in place. Neck is supple no bruits. Chest reveals a few basilar crackles. Heart normal rate and rhythm no murmurs. Abdomen soft nontender. Extremities no clubbing or cyanosis trace of edema. Calves nontender. Results - Labs CBC & BMP: 04/29/17 03:32 04/29/17 03:32 Lab Results: I have reviewed the past 24 hour labs - Diagnostic Findings Procedure: Chest x-ray: image reviewed by me (Mild lower lobe interstitial edema. ET tube to close to the [place].) Assessment and Plan (1) Congestive heart failure Status: Chronic Assessment and plan: Patient has been diuresed. Chest x-ray still looks a little wet. Current Visit: No Qualifiers: Congestive heart failure type: combined Congestive heart failure chronicity : acute on chronic Qualified Code(s): I50.43 - Acute on chronic combined systolic (congestive) and diastolic (congestive) heart failure (2) Diabetes mellitus type 2 in obese Status: Chronic Assessment and plan: Blood sugars fairly well controlled. Current Visit: No (3) Respiratory failure Status: Resolved Assessment and plan: ABGs look good. Will reduce settings. Progress with weaning trials. Hopefully will do better with ET tube adjusted Current Visit: No
--- NOTE | 2017-04-29 06:45 | Cardiology Progress Note ---
Assessment and Plan (1) Acute respiratory failure Status: Acute Current Visit: Yes (2) Aortic insufficiency Status: Chronic Current Visit: Yes Qualifiers: Cardiac valve disease etiology: nonrheumatic Qualified Code(s): I35.1 - Nonrheumatic aortic (valve) insufficiency (3) Mitral regurgitation Status: Chronic Current Visit: Yes Qualifiers: Cardiac valve disease etiology: nonrheumatic Qualified Code(s): I34.0 - Nonrheumatic mitral (valve) insufficiency (4) Aortic stenosis Status: Chronic Current Visit: No Cardiology - PN: Subj Interval history: Patient presented with volume overload requiring intubation mechanical ventilation. She is improving and is now to a point where she is comfortable on the ventilator. She is oxygenating well and our plan will be to continue as currently. Exam (Progress Note) - Constitutional Vitals: Period Temp Pulse Resp BP Sys/Pina Pulse Ox Last 24 Hr 97.9 F-98.9 F 53-67 7-21 129-166/43-88 84-100 Exam: General:no acute distress. alert and oriented, mood and affect are normal HEENT: no new lesions, sclerae are clear, mouth and pharynx benign Neck: supple, trachea midline, no JVD noted Lungs: no rales ronchi or wheeze is noted. pt comfortable without accesory muscle use to assist with breathing CV: RRR grade 2 murmur aortic stenosis noted. PMI is nondisplaced is no RV or LV lift noted. Peripheral pulses are full and equal. Abd: soft and nontender, BSNA, no masses. Ext: no cyanosis, clubbing or edema Neuro: grossly intact without focal neurologic deficit. Result/EKG - Labs CBC & BMP: 04/29/17 03:32 04/29/17 03:32 Labs: Laboratory Results - last 24 hr 04/28/17 04/28/17 04/28/17 05:37 11:41 17:34 WBC RBC Hgb Hct MCV MCH MCHC RDW Plt Count MPV Neut % (Auto) Lymph % (Auto) [place] % (Auto) Eos % (Auto) Baso % (Auto) Neut # (Auto) Lymph # (Auto) [place] # (Auto) Eos # (Auto) Baso # (Auto) Total Counted Immature Gran % Nucleated RBC % Immature Gran # Segmented Neutrophils Lymphocytes Monocytes Eosinophils Nucleated RBCs # Platelet Estimate Hypochromasia Microcytosis ABG pH ABG pCO2 ABG pO2 ABG HCO3 ABG Total CO2 ABG O2 Saturation ABG Base Excess FiO2 Sodium Potassium Chloride Carbon Dioxide Anion Gap BUN Creatinine GFR Calculation BUN/Creatinine Ratio Glucose POC Glucose 184 H 135 H 277 H Calculated Osmolality Calcium Magnesium B-Natriuretic Peptide 04/28/17 04/29/17 04/29/17 23:45 03:30 03:32 WBC RBC Hgb Hct MCV MCH MCHC RDW Plt Count MPV Neut % (Auto) Lymph % (Auto) [place] % (Auto) Eos % (Auto) Baso % (Auto) Neut # (Auto) Lymph # (Auto) [place] # (Auto) Eos # (Auto) Baso # (Auto) Total Counted Immature Gran % Nucleated RBC % Immature Gran # Segmented Neutrophils Lymphocytes Monocytes Eosinophils Nucleated RBCs # Platelet Estimate Hypochromasia Microcytosis ABG pH 7.525 H ABG pCO2 36.9 ABG pO2 207.0 H ABG HCO3 31.1 H ABG Total CO2 27.7 H ABG O2 Saturation 99.8 ABG Base Excess 7.3 H FiO2 50.00 Sodium Potassium Chloride Carbon Dioxide Anion Gap BUN Creatinine GFR Calculation BUN/Creatinine Ratio Glucose POC Glucose 138 H Calculated Osmolality Calcium Magnesium B-Natriuretic Peptide 2918 H 04/29/17 04/29/17 04/29/17 03:32 03:32 05:49 WBC 10.2 RBC 3.50 L Hgb 9.7 L Hct 31.4 L MCV 89.7 MCH 28 MCHC 30.9 L RDW 14.8 Plt Count 244 MPV 10.8 Neut % (Auto) 75.8 H Lymph % (Auto) 13.5 L [place] % (Auto) 7.8 Eos % (Auto) 2.3 Baso % (Auto) 0.1 Neut # (Auto) 7.7 H Lymph # (Auto) 1.4 [place] # (Auto) 0.8 Eos # (Auto) 0.2 Baso # (Auto) 0.0 Total Counted 100 Immature Gran % 0.5 Nucleated RBC % 0.0 Immature Gran # 0.05 Segmented Neutrophils 82 Lymphocytes 13 L Monocytes 4 Eosinophils 1 Nucleated RBCs # 0.00 Platelet Estimate Normal Hypochromasia 1+ Microcytosis Slight ABG pH ABG pCO2 ABG pO2 ABG HCO3 ABG Total CO2 ABG O2 Saturation ABG Base Excess FiO2 Sodium 148 H Potassium 3.7 Chloride 109 H Carbon Dioxide 31 Anion Gap 11.7 BUN 38 H Creatinine 1.40 H GFR Calculation 34 BUN/Creatinine Ratio 27.00 H Glucose 92 POC Glucose 107 H Calculated Osmolality 302.3 Calcium 8.8 Magnesium 2.3 B-Natriuretic Peptide
--- NOTE | 2017-04-29 07:55 | XRay Report ---
XR chest 1V portable Indication: Intubated. Chest one view: Comparison 0338 hours. Endotracheal tube, NG tube, normal heart size and hazy obscuration of both lung bases, worse on the left, are stable. No new opacities. Impression: No significant change from 3 hours ago. PROCEDURE INTERPRETED AT [facility] DEPARTMENT OF RADIOLOGY Final Report Signed by: German Hankins M.D.
[2017-04-29] MEDS: ACETAMINOPHEN 500 MG TABLET PO PRN ×2 (08:00→21:08)
[2017-04-29] MEDS: FUROSEMIDE 40 MG/4 ML VIAL IV SCH (08:46)
[2017-04-29] MEDS: ISOSORBIDE MONONITRATE 30 MG TABLET PO SCH (08:47)
[2017-04-29] MEDS: ASPIRIN CHEW 81 MG TABLET PO SCH (08:47)
[2017-04-29] MEDS: CARVEDILOL 12.5 MG TABLET PO SCH ×2 (08:49→21:09)
[2017-04-29] MEDS: MULTIVITAMIN LIQUID (CENTRUM) 60 ML BOTTLE PO SCH (08:50)
--- NOTE | 2017-04-29 08:50 | XRay Report ---
XR chest 1V portable Indication: Intubated. Chest one view: Since yesterday, endotracheal tube position is unchanged, terminating at the [place]. Recommend withdrawing slightly. NG tube, normal heart size and mediastinal contour, calcified atheromatous disease and left greater than right bibasilar hazy infiltrates are stable. Impression: No change. Recommend withdrawing endotracheal tube slightly. PROCEDURE INTERPRETED AT [facility] DEPARTMENT OF RADIOLOGY Final Report Signed by: German Hankins M.D.
[2017-04-29] MEDS: LEVOFLOXACIN INJ 250 MG in PREMIX 1 EACH IV SCH (11:00)
--- NOTE | 2017-04-29 13:33 | Hospitalist Progress Note ---
Assessment and Plan (1) Congestive heart failure Status: Chronic Assessment and plan: The patient is admitted to the hospital with respiratory failure due to pulmonary edema in the face of coronary and valvular heart disease. The patient has been stabilized. The patient is tolerating tube feedings. Patient has begun weaning trials. Renal function is beginning to show azotemia. The patient is likely near her dry weight. Current Visit: No Qualifiers: Congestive heart failure type: combined Congestive heart failure chronicity : acute on chronic Qualified Code(s): I50.43 - Acute on chronic combined systolic (congestive) and diastolic (congestive) heart failure (2) Mitral regurgitation Status: Chronic Current Visit: Yes Qualifiers: Cardiac valve disease etiology: nonrheumatic Qualified Code(s): I34.0 - Nonrheumatic mitral (valve) insufficiency (3) Aortic valve stenosis Status: Acute Current Visit: No Hospitalist: Subjective Interval history: The patient is sitting up in chair continue with oral tracheal intubation and is beginning weaning trials. The patient is tolerating tube feedings. Exam - Constitutional Vitals: Period Temp Pulse Resp BP Sys/Pina Pulse Ox Last 24 Hr 97.3 F-98.6 F 53-67 8-21 129-180/43-70 100-100 Exam: Constitutional System: Mild distress. No tremulousness. The patient is orally intubated and mechanically ventilated Head: Normocephalic, atraumatic. Ears, Nose and Throat System: No evidence of Otitis or Mastoiditis. No epistaxis or discharge Eyes System: Pupils equal, round, and reactive. Extraocular muscles intact. Neck: Supple, without adenopathy, No jugular venous distention. No thyromegaly , neck mass, or prior surgery apparent. Respiratory System: Chest clear to auscultation. Cardiovascular System: Heart with regular rate and rhythm. 3/6 systolic murmur. GI System: Abdomen soft, nontender. Normo active bowel sounds present. Musculoskeletal System: limbs with no pedal edema. Full distal pulses. Neurological System: No discernable sensory deficit. Results - Labs CBC & BMP: 04/29/17 03:32 04/29/17 03:32 Lab Results: I have reviewed the past 24 hour labs
[2017-04-29] MEDS: PANTOPRAZOLE 40 MG VIAL IV SCH (16:34)
[2017-04-29] MEDS: PROPOFOL 1,000 MG/100 ML BOTTLE IV SCH (19:42)
[2017-04-29] MEDS: ATORVASTATIN 80 MG TABLET PO SCH (21:10)
[2017-04-30] MEDS: INSULIN REGULAR 100 UNIT/ML SUBCUT SCH ×4 (00:41→18:36)
[2017-04-30 04:11] LABS: ABG Base Excess 7.7 MMOL/L (-2.5-2.5); ABG HCO3 30.4 MMOL/L (20-26); ABG PCO2 35.5 MM HG (35-48); ABG PH 7.551 (7.35-7.45); ABG PO2 232.4 MM HG (80-95); ABG TCO2 31.5 MMOL/L (23-27)
[2017-04-30 05:01] LABS: Basophils % 0.1 % (0.0-0.8); Eosinophils # 0.2 10*3/uL (0.0-0.87); Eosinophils % 2.6 % (0.00-10.9); Hematocrit 30.8 VOL% (35.7-47.0); Hemoglobin 9.8 GM/DL (12.0-16.0); Immature Granulocytes % 0.5 %; Immature Granulocytes Absolute 0.04 #; Lymphocytes # 1.5 10*3/uL (1.4-4.0); Lymphocytes % 17.2 % (21.3-54.2); Mean Corpuscular HGB Conc 31.8 GM/DL (32-36); Mean Corpuscular Hemoglobin 28 PG (27-34); Mean Platelet Volume 10.6 FL (9.6-12.0); Monocytes # 0.9 10*3/uL (0.11-0.8); Monocytes % 9.7 % (1.7-12.7); Neutrophils # 6.1 10*3/uL (1.4-7.4); Neutrophils % 69.9 % (38.7-73.9); Platelet Count 256 T/CUMM (130-400); Red Cell Distribution Width 14.6 % (9.3-17.3); White Blood Count 8.7 T/CUMM (4-12)
[2017-04-30 05:31] LABS: Calcium 8.4 MG/DL (8.5-10.1); Magnesium 2.3 MG/DL (1.8-2.4); Osmolality,Calculated 303.3 MOS/KG (273-304); Potassium 3.6 MMOL/L (3.5-5.1)
--- NOTE | 2017-04-30 07:00 | Pulmonology Progress Note ---
Pulmonary - PN: Subj Interval history: This 76-year-old lady has congestive heart failure and is on the ventilator. She has improved and is doing CPAP's. Does have some hyponatremia. Being treated for urinary tract infection. Chest x-ray is stable. Patient is alert and calm. 04/30/2017 patient doing great with CPAP trials. PO2 over 200. X-ray is improved. Weight is down 3 kg with diuresis. Renal function intact. Should be able to extubate this morning. Exam (Progress Note) - Constitutional Vitals: Period Temp Pulse Resp BP Sys/Pina Pulse Ox Last 24 Hr 97.3 F-98 F 57-75 8-32 134-180/44-75 94-100 Exam: Patient responsive. Sitting up on side of the bed using her phone. Vital signs normal. Pupils react to light. Orotracheal tube in place. Neck is supple no bruits. Chest reveals a few basilar crackles. Heart normal rate and rhythm no murmurs. Abdomen soft nontender. Extremities no clubbing or cyanosis trace of edema. Calves nontender. Results - Labs CBC & BMP: 04/30/17 04:00 04/30/17 04:00 Lab Results: I have reviewed the past 24 hour labs - Diagnostic Findings Procedure: Chest x-ray: image reviewed by me (A little better. Unable to visualize right diaphragm. Indicates less effusion. ET tube in good position.) Assessment and Plan (1) Congestive heart failure Status: Chronic Assessment and plan: Patient has been diuresed. Chest x-ray still looks a little wet. 04/30/2017 chest x-ray improved and weight down 3 kg. Should be able to extubate. Current Visit: No Qualifiers: Congestive heart failure type: combined Congestive heart failure chronicity : acute on chronic Qualified Code(s): I50.43 - Acute on chronic combined systolic (congestive) and diastolic (congestive) heart failure (2) Diabetes mellitus type 2 in obese Status: Chronic Assessment and plan: Blood sugars fairly well controlled. 04/30/2017 blood sugars well controlled. Current Visit: No (3) Respiratory failure Status: Resolved Assessment and plan: ABGs look good. Will reduce settings. Progress with weaning trials. Hopefully will do better with ET tube adjusted 04/30/2017 tolerating CPAP. Plan to extubate today. Current Visit: No
--- NOTE | 2017-04-30 08:08 | Cardiology Progress Note ---
Assessment and Plan (1) Acute respiratory failure Status: Acute Assessment and plan: She has now gotten to the point that I think she can tolerate extubation. Dr. Marc is managing her ventilator. Current Visit: Yes (2) Aortic insufficiency Status: Chronic Current Visit: Yes Qualifiers: Cardiac valve disease etiology: nonrheumatic Qualified Code(s): I35.1 - Nonrheumatic aortic (valve) insufficiency (3) Mitral regurgitation Status: Chronic Current Visit: Yes Qualifiers: Cardiac valve disease etiology: nonrheumatic Qualified Code(s): I34.0 - Nonrheumatic mitral (valve) insufficiency (4) Aortic stenosis Status: Chronic Current Visit: No Cardiology - PN: Subj Interval history: Patient is to be extubated today. She is comfortable on the ventilator setting up reading. Her lungs are clear and she is gradually to the point that I think she can tolerate extubation. Her rhythm has been stable she has no complaints this morning. Exam (Progress Note) - Constitutional Vitals: Period Temp Pulse Resp BP Sys/Pina Pulse Ox Last 24 Hr 97.6 F-98 F 57-75 8-32 93-180/44-75 94-100 Exam: General:no acute distress. alert and oriented, mood and affect are normal HEENT: no new lesions, sclerae are clear, mouth and pharynx benign Neck: supple, trachea midline, no JVD noted Lungs: no rales ronchi or wheeze is noted. pt comfortable without accesory muscle use to assist with breathing CV: RRR grade 2 murmur aortic stenosis noted. PMI is nondisplaced is no RV or LV lift noted. Peripheral pulses are full and equal. Abd: soft and nontender, BSNA, no masses. Ext: no cyanosis, clubbing or edema Neuro: grossly intact without focal neurologic deficit. Result/EKG - Labs CBC & BMP: 04/30/17 04:00 04/30/17 04:00 Labs: Laboratory Results - last 24 hr 04/29/17 04/29/17 04/30/17 12:45 18:22 00:02 WBC RBC Hgb Hct MCV MCH MCHC RDW Plt Count MPV Neut % (Auto) Lymph % (Auto) [place] % (Auto) Eos % (Auto) Baso % (Auto) Neut # (Auto) Lymph # (Auto) [place] # (Auto) Eos # (Auto) Baso # (Auto) Immature Gran % Nucleated RBC % Immature Gran # Nucleated RBCs # ABG pH ABG pCO2 ABG pO2 ABG HCO3 ABG Total CO2 ABG O2 Saturation ABG Base Excess Sodium Potassium Chloride Carbon Dioxide Anion Gap BUN Creatinine GFR Calculation BUN/Creatinine Ratio Glucose POC Glucose 153 H 109 H 193 H Calculated Osmolality Calcium Magnesium 04/30/17 04/30/17 04/30/17 03:40 04:00 04:00 WBC 8.7 RBC 3.50 L Hgb 9.8 L Hct 30.8 L MCV 88.0 MCH 28 MCHC 31.8 L RDW 14.6 Plt Count 256 MPV 10.6 Neut % (Auto) 69.9 Lymph % (Auto) 17.2 L [place] % (Auto) 9.7 Eos % (Auto) 2.6 Baso % (Auto) 0.1 Neut # (Auto) 6.1 Lymph # (Auto) 1.5 [place] # (Auto) 0.9 H Eos # (Auto) 0.2 Baso # (Auto) 0.0 Immature Gran % 0.5 Nucleated RBC % 0.0 Immature Gran # 0.04 Nucleated RBCs # 0.00 ABG pH 7.551 H ABG pCO2 35.5 ABG pO2 232.4 H ABG HCO3 30.4 H ABG Total CO2 31.5 H ABG O2 Saturation 99.0 ABG Base Excess 7.7 H Sodium 148 H Potassium 3.6 Chloride 110 H Carbon Dioxide 30 Anion Gap 11.6 BUN 39 H Creatinine 1.40 H GFR Calculation 34 BUN/Creatinine Ratio 27.00 H Glucose 110 H POC Glucose Calculated Osmolality 303.3 Calcium 8.4 L Magnesium 2.3 04/30/17 06:05 WBC RBC Hgb Hct MCV MCH MCHC RDW Plt Count MPV Neut % (Auto) Lymph % (Auto) [place] % (Auto) Eos % (Auto) Baso % (Auto) Neut # (Auto) Lymph # (Auto) [place] # (Auto) Eos # (Auto) Baso # (Auto) Immature Gran % Nucleated RBC % Immature Gran # Nucleated RBCs # ABG pH ABG pCO2 ABG pO2 ABG HCO3 ABG Total CO2 ABG O2 Saturation ABG Base Excess Sodium Potassium Chloride Carbon Dioxide Anion Gap BUN Creatinine GFR Calculation BUN/Creatinine Ratio Glucose POC Glucose 107 H Calculated Osmolality Calcium Magnesium
[2017-04-30] MEDS: ACETAMINOPHEN 500 MG TABLET PO PRN ×2 (08:09→21:16)
[2017-04-30 08:37] LABS: ABG Base Excess 6.2 MMOL/L (-2.5-2.5); ABG HCO3 30.1 MMOL/L (20-26); ABG Oxygen Saturation 99.2 % (95-100); ABG PCO2 42.4 MM HG (35-48); ABG PH 7.466 (7.35-7.45); ABG TCO2 27.6 MMOL/L (23-27); Pt O2 Delivery Device Ventilator
--- NOTE | 2017-04-30 10:15 | XRay Report ---
Portable chest Date: 04/30/2017 Clinical history: Ventilator Comparison: 04/30/2017 Technique: Portable AP sitting chest Findings: The heart is minimally enlarged with stable supportive devices. Persistent diffuse parenchymal findings in the lungs especially at the left lung base with small pleural effusions. The mediastinum and osseous structures are stable in appearance. Impression: Supportive devices remain in satisfactory position. Minimally improved atelectasis/edema/infiltration in the right lung with minimally smaller right pleural effusion. More stable findings at the left lung base. PROCEDURE INTERPRETED AT [facility] DEPARTMENT OF RADIOLOGY Final Report Signed by: Dr. Rosa Hurtado
[2017-04-30] MEDS: FUROSEMIDE 40 MG/4 ML VIAL IV SCH (10:18)
[2017-04-30] MEDS: CARVEDILOL 12.5 MG TABLET PO SCH ×2 (10:19→21:15)
[2017-04-30] MEDS: ASPIRIN CHEW 81 MG TABLET PO SCH (10:19)
[2017-04-30] MEDS: LEVOFLOXACIN INJ 250 MG in PREMIX 1 EACH IV SCH (10:19)
[2017-04-30] MEDS: ISOSORBIDE MONONITRATE 30 MG TABLET PO SCH (10:19)
[2017-04-30] MEDS: MULTIVITAMIN LIQUID (CENTRUM) 60 ML BOTTLE PO SCH (10:20)
[2017-04-30 10:49] LABS: ABG Base Excess 4.9 MMOL/L (-2.5-2.5); ABG HCO3 28.9 MMOL/L (20-26); ABG Oxygen Saturation 99.6 % (95-100); ABG PH 7.416 (7.35-7.45); ABG TCO2 27.4 MMOL/L (23-27)
--- NOTE | 2017-04-30 12:24 | Hospitalist Progress Note ---
Assessment and Plan (1) Congestive heart failure Status: Chronic Assessment and plan: The patient is admitted to the hospital with respiratory failure due to pulmonary edema in the face of coronary and valvular heart disease. The patient has been stabilized. The patient has been extubated successfully. She will begin regular diet and be ready for transfer to the floor tomorrow unless there are new events occurring. Current Visit: No Qualifiers: Congestive heart failure type: combined Congestive heart failure chronicity : acute on chronic Qualified Code(s): I50.43 - Acute on chronic combined systolic (congestive) and diastolic (congestive) heart failure (2) Mitral regurgitation Status: Chronic Current Visit: Yes Qualifiers: Cardiac valve disease etiology: nonrheumatic Qualified Code(s): I34.0 - Nonrheumatic mitral (valve) insufficiency (3) Aortic valve stenosis Status: Acute Current Visit: No Hospitalist: Subjective Interval history: Mrs. Moscoso was extubated this morning. She is breathing comfortably off the ventilator and has some dysphonia due to vocal cord irritation. The patient does not complain of shortness of breath or angina. Exam - Constitutional Vitals: Period Temp Pulse Resp BP Sys/Pina Pulse Ox Last 24 Hr 97.6 F-99 F 57-75 8-32 93-181/44-83 94-100 Exam: Constitutional System: Mild distress. No tremulousness. The patient has been extubated and is breathing without stridor Head: Normocephalic, atraumatic. Ears, Nose and Throat System: No evidence of Otitis or Mastoiditis. No epistaxis or discharge Eyes System: Pupils equal, round, and reactive. Extraocular muscles intact. Neck: Supple, without adenopathy, No jugular venous distention. No thyromegaly , neck mass, or prior surgery apparent. Respiratory System: Chest clear to auscultation. Cardiovascular System: Heart with regular rate and rhythm. 3/6 systolic murmur. GI System: Abdomen soft, nontender. Normo active bowel sounds present. Musculoskeletal System: limbs with no pedal edema. Full distal pulses. Neurological System: No discernable sensory deficit. Results - Labs CBC & BMP: 04/30/17 04:00 04/30/17 04:00 Lab Results: I have reviewed the past 24 hour labs
[2017-04-30] MEDS: PANTOPRAZOLE 40 MG VIAL IV SCH (15:59)
[2017-04-30] MEDS: ATORVASTATIN 80 MG TABLET PO SCH (21:15)
[2017-05-01] MEDS: INSULIN REGULAR 100 UNIT/ML SUBCUT SCH ×5 (00:45→21:10)
[2017-05-01 03:28] LABS: ABG Base Excess 6.6 MMOL/L (-2.5-2.5); ABG HCO3 30.4 MMOL/L (20-26); ABG Oxygen Saturation 93.2 % (95-100); ABG PCO2 46.8 MM HG (35-48); ABG PH 7.438 (7.35-7.45); ABG PO2 65.2 MM HG (80-95); Allen Test Positive
[2017-05-01 05:20] LABS: Basophils % 0.1 % (0.0-0.8); Eosinophils # 0.3 10*3/uL (0.0-0.87); Eosinophils % 3.8 % (0.00-10.9); Hematocrit 30.9 VOL% (35.7-47.0); Hemoglobin 9.7 GM/DL (12.0-16.0); Immature Granulocytes % 0.5 %; Immature Granulocytes Absolute 0.04 #; Lymphocytes # 1.7 10*3/uL (1.4-4.0); Lymphocytes % 20.5 % (21.3-54.2); Mean Corpuscular HGB Conc 31.4 GM/DL (32-36); Mean Corpuscular Hemoglobin 28 PG (27-34); Mean Platelet Volume 10.5 FL (9.6-12.0); Monocytes # 0.7 10*3/uL (0.11-0.8); Neutrophils # 5.7 10*3/uL (1.4-7.4); Neutrophils % 67.1 % (38.7-73.9); Platelet Count 265 T/CUMM (130-400); Red Blood Count 3.51 MC/CUMM (3.8-5.5); Red Cell Distribution Width 14.3 % (9.3-17.3); White Blood Count 8.4 T/CUMM (4-12)
[2017-05-01 05:56] LABS: Calcium 8.4 MG/DL (8.5-10.1); Osmolality,Calculated 297.7 MOS/KG (273-304); Potassium 3.2 MMOL/L (3.5-5.1)
--- NOTE | 2017-05-01 08:05 | XRay Report ---
Exam: XR chest 1V portable Indication: Extubation Comparison study: Prior chest radiograph 04/30/2017 Findings: Endotracheal and esophagogastric tubes have been removed. Cardiac silhouette is enlarged, similar prior. There are diffuse perihilar and basilar interstitial airspace opacities, which are slightly increased from prior. There is no pneumothorax. Osseous structures appear stable. Impression: Interval extubation with worsening of perihilar and basilar interstitial airspace opacities suggesting pulmonary edema changes. Infectious/inflammatory infiltrates can be obscured. Small bilateral pleural effusions are also suggested. No pneumothorax. PROCEDURE INTERPRETED AT [facility] DEPARTMENT OF RADIOLOGY Final Report Signed by: Last Jennings
[2017-05-01] MEDS: CARVEDILOL 12.5 MG TABLET PO SCH ×2 (08:16→21:09)
[2017-05-01] MEDS: ISOSORBIDE MONONITRATE 30 MG TABLET PO SCH (08:16)
[2017-05-01] MEDS: PANTOPRAZOLE 40 MG TABLET PO SCH (08:16)
[2017-05-01] MEDS: ASPIRIN CHEW 81 MG TABLET PO SCH (08:16)
[2017-05-01] MEDS: amLODIPine 5 MG TABLET PO SCH (08:16)
[2017-05-01] MEDS: MULTIVITAMIN (CENTRUM) TABLET PO SCH (08:16)
[2017-05-01] MEDS: FUROSEMIDE 40 MG/4 ML VIAL IV SCH (08:16)
--- NOTE | 2017-05-01 08:59 | Cardiology Progress Note ---
Assessment and Plan (1) CHF (congestive heart failure) Status: Acute Assessment and plan: 1. 1. 76-year-old BF well known to me with admission with non-STEMI and heart failure early March 2017 complicated by approximate mildly reduced LV function, calcific three-vessel disease/coronary anatomy, and valvular heart disease ( approximately 3+ mitral stenosis with MR, and 3+ aortic stenosis with AR. She is now admitted again with pulmonary edema now off the ventilator feeling fairly well. 2. Add amlodipine 5 mg now and daily for blood pressure control 3. Apparently she was turned down by [place] in [facility] for valvular intervention due to her high risk nature and inability to take blood. 4. We will continue medical therapy, but consider percutaneous intervention. I will discuss this with Dr. Temple today. 5. Stable mild anemia with hematocrit over 31% 6. Stable creatinine about 1.3 7. She can be transferred to the floor from a cardiac standpoint Current Visit: Yes Qualifiers: Congestive heart failure type: systolic Congestive heart failure chronicity : acute on chronic Qualified Code(s): I50.23 - Acute on chronic systolic ( congestive) heart failure (2) Mitral regurgitation Status: Chronic Current Visit: Yes Qualifiers: Cardiac valve disease etiology: nonrheumatic Qualified Code(s): I34.0 - Nonrheumatic mitral (valve) insufficiency (3) Aortic stenosis Status: Chronic Current Visit: No (4) Coronary artery disease Status: Chronic Current Visit: No Qualifiers: Coronary Disease-Associated Artery/Lesion type: [place] artery [place] vs. transplanted heart: [place] heart Associated angina: without angina Qualified Code(s): I25.10 - Atherosclerotic heart disease of [place] coronary artery without angina pectoris (5) Pulmonary edema Status: Resolved Current Visit: No Cardiology - PN: Subj Interval history: Ms. Moscoso is feeling much better. She is talking comfortably in her room. She has never had any chest discomfort. She was doing reasonably well in clinic a week or so ago, but went to bed with swollen legs, reported that she developed significant shortness of breath the next morning prompting her admission with heart failure. Her hematocrit and renal function are stable. Her vital signs. Exam (Progress Note) - Constitutional Vitals: Period Temp Pulse Resp BP Sys/Pina Pulse Ox Last 24 Hr 97.2 F-98.2 F 57-76 10-28 128-181/46-71 93-100 General appearance: normal weight, no acute distress - Head Head exam: Present: normal inspection, normocephalic, atraumatic - Neck Neck exam: Present: normal inspection - Respiratory Respiratory exam: Present: rales. Absent: stridor, wheezes - Cardiovascular Cardiovascular exam: Present: systolic murmur. Absent: diastolic murmur, rubs - GI/Abdominal GI/Abdominal exam: Present: soft. Absent: tenderness - Extremities Exam Extremities exam: Present: edema (Trace to 1+ lower extremity edema) - Neurological Exam Neurological exam: Present: alert, oriented X3 - Psychiatric Psychiatric exam: Present: normal affect, normal mood Result/EKG - Labs CBC & BMP: 05/01/17 04:40 05/01/17 04:40 Labs: Laboratory Results - last 24 hr 04/30/17 04/30/17 04/30/17 10:38 11:39 17:56 WBC RBC Hgb Hct MCV MCH MCHC RDW Plt Count MPV Neut % (Auto) Lymph % (Auto) [place] % (Auto) Eos % (Auto) Baso % (Auto) Neut # (Auto) Lymph # (Auto) [place] # (Auto) Eos # (Auto) Baso # (Auto) Immature Gran % Nucleated RBC % Immature Gran # Nucleated RBCs # ABG pH 7.416 ABG pCO2 47.0 ABG pO2 157.0 H ABG HCO3 28.9 H ABG Total CO2 27.4 H ABG O2 Saturation 99.6 ABG Base Excess 4.9 H FiO2 28.00 Sodium Potassium Chloride Carbon Dioxide Anion Gap BUN Creatinine GFR Calculation BUN/Creatinine Ratio Glucose POC Glucose 139 H 283 H Calculated Osmolality Calcium Magnesium 05/01/17 05/01/17 05/01/17 03:13 04:40 04:40 WBC 8.4 RBC 3.51 L Hgb 9.7 L Hct 30.9 L MCV 88.0 MCH 28 MCHC 31.4 L RDW 14.3 Plt Count 265 MPV 10.5 Neut % (Auto) 67.1 Lymph % (Auto) 20.5 L [place] % (Auto) 8.0 Eos % (Auto) 3.8 Baso % (Auto) 0.1 Neut # (Auto) 5.7 Lymph # (Auto) 1.7 [place] # (Auto) 0.7 Eos # (Auto) 0.3 Baso # (Auto) 0.0 Immature Gran % 0.5 Nucleated RBC % 0.0 Immature Gran # 0.04 Nucleated RBCs # 0.00 ABG pH 7.438 ABG pCO2 46.8 ABG pO2 65.2 L ABG HCO3 30.4 H ABG Total CO2 29.0 H ABG O2 Saturation 93.2 L ABG Base Excess 6.6 H FiO2 28.00 Sodium 145 Potassium 3.2 L Chloride 107 Carbon Dioxide 32 Anion Gap 9.2 BUN 36 H Creatinine 1.30 H GFR Calculation 36 BUN/Creatinine Ratio 27.00 H Glucose 136 H POC Glucose Calculated Osmolality 297.7 Calcium 8.4 L Magnesium 2.0
--- NOTE | 2017-05-01 10:14 | Hospitalist Progress Note ---
Assessment and Plan (1) Congestive heart failure Status: Chronic Assessment and plan: patient needs valve replacement. Dr. Noble has spoke to a Dr Green in [place], change lasix 40 mg po bid, during last admission Current Visit: No Qualifiers: Congestive heart failure type: combined Congestive heart failure chronicity : acute on chronic Qualified Code(s): I50.43 - Acute on chronic combined systolic (congestive) and diastolic (congestive) heart failure (2) Diabetes mellitus type 2 in obese Status: Chronic Assessment and plan: BS fairly well controlled Current Visit: No (3) Essential hypertension Status: Chronic Assessment and plan: controlled with coreg and norvasc Current Visit: No (4) Mitral regurgitation Status: Chronic Assessment and plan: needs valve replacement Current Visit: Yes Qualifiers: Cardiac valve disease etiology: nonrheumatic Qualified Code(s): I34.0 - Nonrheumatic mitral (valve) insufficiency (5) Aortic stenosis Status: Chronic Assessment and plan: needs valve replacement Current Visit: No (6) Anemia Status: Chronic Assessment and plan: stable Current Visit: Yes Hospitalist: Subjective Interval history: Patient looking great today. We will DC her Melchor. We will move her to the floor. She is up and sitting in the chair. Exam - Constitutional Vitals: Period Temp Pulse Resp BP Sys/Pina Pulse Ox Last 24 Hr 97.2 F-98.6 F 57-76 12-28 128-181/46-71 93-100 Exam: Heart Rate-[RRR] Lungs-[CTAB] GI-[+bs soft, NT] Ext-[no edema] Neuro [Motor 5/5], [alert and oriented times 3] psych [normal mood and affect] General [no acute distress] Results - Labs CBC & BMP: 05/01/17 04:40 05/01/17 04:40 Lab Results: I have reviewed the past 24 hour labs - Diagnostic Findings Procedure: Chest x-ray: report reviewed by me (pulmonary edema )
--- NOTE | 2017-05-01 10:24 | Pulmonology Progress Note ---
Pulmonary - PN: Subj Interval history: This is a 76-year-old black female whom I saw in pulmonary consultation on 2016. She had been admitted with acute congestive heart failure and subsequently developed acute respiratory failure requiring intubation mechanical ventilation. My impressions were. 1. Acute congestive heart failure 2. Acute respiratory failure requiring intubation mechanical ventilation. Most likely secondary to acute congestive heart failure. 3. Cannot rule out infiltrate come compatible with pneumonia. 4. Chronic lower extremity edema. Look for deep venous thrombophlebitis #5. Moderate aortic insufficiency and mild mitral regurgitation. See Dr. Bimal Hall's note 6. Three-vessel heart disease with past history of myocardial infarction and past history of congestive heart failure. See Dr. Hall's note 7. Acute on chronic renal failure 8. Hyper ketonemia. 9. Diabetes mellitus. 10. See past history 04/25/2017. Today's chest x-ray shows some improvement in the degree of congestive heart failure but patient is still in heart failure. I agree with continuing diuresis. On mechanical ventilation and FiO2 of 70% ABGs show a pH of 7.5 to, PCO2 32.5, PO2 of 162 with a bicarb of 28.3. This patient is FiO2 is been decreased to 60%. She is on weaning protocol and she is on physical therapy protocol. Natruretic peptide remains elevated 4422. Creatinine is 1.70 down from 2.10 BUNs 29. Sodium is 148. Potassium 3.6 and chloride is 110. White count is dropped to 9100 with 74 segs 15 lymphs. H&H is 9.2/30.0. Total protein and albumin are low at 5.6 and 2.2 respectively. 04/26/2017. Today's chest x-ray is improved. Patient still has congestive heart failure with bilateral pleural effusions, central vascular engorgement and increased interstitial markings in the perihilar areas and also in the bases of the lungs. ABGs on mechanical ventilation FiO2 of 50% shows a pH of 7.46, PCO2 40.5 PO2 143 and a bicarb of 28.4. On 04/25/2017 the patient could not do CPAP but today she is doing very well. As her congestive heart failure resolves I think we will will be able to advance her rapidly. Sodium is 148. Potassium 3.2. Creatinine is dropped 1.60 with a BUN of 27. CBC is stable. Nitrated peptide remains elevated 4706. Protein and albumin are low at 5.4 and 2.2 respectively liver function tests have been 04/28/2017. Patient is doing well on stage IV weaning protocol. I tried her briefly on the T-tube that she is not yet ready. Her chest x-ray shows continuous improvement of her congestive heart failure. This has not resolved. She still has bilateral pleural effusions that she has central vascular congestion. Once her heart failure resolves she should come off the ventilator fairly easily. ABGs on mechanical ventilation and FiO2 of 50% shows a pH of 7.43, PCO2 of 46, PO2 of 196 and a bicarb of 29.4. Sodium is high at 151. Potassium is 4.4. Creatinine is stable at 1.4 and BUN is 33. White count 11, 300 with 75 segs. H&H 9.2/30.2 and platelets are 232,000. Natruretic peptide remains elevated 3149. Protein and albumin low at 5.3 and 1.9 respectively. Urine cultures are growing Enterobacter so I have started the patient on Levaquin. 05/01/2017. This patient was extubated 04/30/2017 has done well since. Today's chest x-ray shows central vasculature is top normal. ABGs on FiO2 28% showed pH 7.428, PCO2 46.8, PO2 65.2 and a bicarb of 30.4. CBC is stable white count is 8400 with 67 segs 20 lymphs. Creatinine is 1.30 with a BUN of 36 potassium is low at 3.2. Labs been reviewed. Medicines been reviewed. Urine cultures from 04/24/2017 grew Enterococcus faecalis. This patient is doing very well from a pulmonary standpoint and I will sign off. Please reconsult whenever Physical exam. Vital signs. See below Neurologic. Cranial nerves are intact. Patient moves all 4 extremities Psychiatric. Alert oriented and able to cooperate Face. Symmetrical. No swelling of tongue or lips Neck. Symmetrical no meningismus. Chest. Bibasilar rales Heart. Lateral PMI Abdomen. Nondistended. Very rare bowel sounds Lower extremities. Chronic venous stasis changes. Lymphatics. No submandibular cervical supraclavicular or epitrochlear adenopathy The remainder the exam is noncontributory. Plan. 04/24/2017 1. Mechanical ventilation. Mechanical ventilation weaning protocol mechanical ventilation physical therapy protocol 2. Agree with antibiotics until chest x-ray status is better clarified 3. Sputum for Gram stain culture sensitivity 4. Cold agglutinins 5. Doppler venograms of lower extremities 6. Daily chest x-ray ABGs and lab 04/25/2017. 1. See today's note above. Congestive heart failure better but not resolved 2. Weaning protocol 3. Physical therapy protocol 4. Once congestive heart failure is resolved I think the patient can be rapidly extubated. 04/26/2017. 1. See today's note above. 2. Much better and weaning protocol today. Should move rapidly if her pulmonary edema will resolve rapidly 04/28/2017. 1. See today's note above. 2. Enterobacter. Levaquin. 3. Stage IV weaning protocol 4. Slowly resolving congestive heart failure 5. Daily chest x-ray ABGs and lab 05/01/2017. 1. Extubated 04/30/2017. 2. Chest x-ray. Vasculature top normal. 3. ABGs look good 4. We will sign off. Reconsult when needed Exam (Progress Note) - Constitutional Vitals: Period Temp Pulse Resp BP Sys/Pina Pulse Ox Last 24 Hr 97.2 F-98.6 F 57-76 12-28 128-181/46-71 93-100 Results - Labs CBC & BMP: 05/01/17 04:40 05/01/17 04:40
[2017-05-01] MEDS ORDERED: POLYVINYL ALCOHOL 1.4% OPH SOLN 15 ML BOTTLE BOTH EYES PRN (10:45)
[2017-05-01] MEDS: glyBURIDE 2.5 MG TABLET PO SCH ×2 (11:42→17:04)
[2017-05-01] MEDS: OFLOXACIN 0.3% OPH SOLN 10 ML BOTTLE LEFT EYE SCH ×4 (11:43→21:10)
[2017-05-01] MEDS: CLOPIDOGREL 75 MG TABLET PO SCH (11:43)
[2017-05-01] MEDS: LEVOFLOXACIN INJ 250 MG in PREMIX 1 EACH IV SCH (13:31)
[2017-05-01] MEDS: FUROSEMIDE 40 MG TABLET PO SCH (17:05)
[2017-05-01] MEDS: sitaGLIPtin 25 MG TABLET PO SCH (21:08)
[2017-05-01] MEDS: ATORVASTATIN 80 MG TABLET PO SCH (21:09)
[2017-05-02] MEDS: ZALEPLON 5 MG CAPSULE PO PRN ×2 (00:30→20:39)
[2017-05-02 05:16] LABS: Basophils % 0.1 % (0.0-0.8); Eosinophils # 0.4 10*3/uL (0.0-0.87); Hematocrit 32.1 VOL% (35.7-47.0); Hemoglobin 10.3 GM/DL (12.0-16.0); Immature Granulocytes % 0.3 %; Immature Granulocytes Absolute 0.03 #; Lymphocytes # 1.8 10*3/uL (1.4-4.0); Lymphocytes % 18.8 % (21.3-54.2); Mean Corpuscular HGB Conc 32.1 GM/DL (32-36); Mean Corpuscular Hemoglobin 28 PG (27-34); Mean Corpuscular Volume 86.8 FL (87-102); Mean Platelet Volume 10.7 FL (9.6-12.0); Monocytes # 0.8 10*3/uL (0.11-0.8); Neutrophils # 6.4 10*3/uL (1.4-7.4); Neutrophils % 68.8 % (38.7-73.9); Platelet Count 240 T/CUMM (130-400); Red Cell Distribution Width 14.2 % (9.3-17.3); White Blood Count 9.3 T/CUMM (4-12)
[2017-05-02 05:50] LABS: Calcium 7.9 MG/DL (8.5-10.1); Magnesium 1.8 MG/DL (1.8-2.4); Osmolality,Calculated 290.1 MOS/KG (273-304); Potassium 3.5 MMOL/L (3.5-5.1)
--- NOTE | 2017-05-02 08:56 | Cardiology Progress Note ---
Assessment and Plan (1) CHF (congestive heart failure) Status: Acute Assessment and plan: 1. 1. 76-year-old BF well known to me with admission with non-STEMI and heart failure early March 2017 complicated by approximate mildly reduced LV function, calcific three-vessel disease/coronary anatomy, and valvular heart disease ( approximately 3+ mitral stenosis with MR, and 3+ aortic stenosis with AR. She is now admitted again with pulmonary edema now off the ventilator feeling fairly well. 2. Add amlodipine 5 mg now and daily for blood pressure control 3. Apparently she was turned down by [facility] in [facility] for valvular intervention due to her high risk nature and inability to take blood. 4. We will continue medical therapy, but consider percutaneous intervention. I will discuss this with Dr. Temple today. 5. Stable mild anemia with hematocrit over 31% 6. Stable creatinine about 1.3 7. She can be transferred to the floor from a cardiac standpoint April 02, 2017 update: 1. Given his Moscoso is been admitted twice with pulmonary edema and is required intubation each time, her mitral and aortic valvular disease has been determined to be moderate and not severe (I had a discussion with Dr. Giovani Green yesterday who evaluated her at [facility]), and she is not a surgical candidate for CABG given her conviction against taking blood transfusions, recommended repeat heart catheterization with stenting of her circumflex and possibly her LAD if WaveWire evaluation dictates. However she declines "I just want to go home and get stronger". I explained that I suspect that she will come back with pulmonary edema again requiring intubation, and she acknowledges that she understands this. Nurse Liset was with me during the discussion. 2. Add spironolactone 25 mg every morning given her heart failure, reduced LV function (RALES trial), and previous hypokalemia. 3. She is doing well as far as her creatinine at 1.3, and stable mild anemia with hematocrit above 30%. 4. We will check a.m. lab and recommend discharge tomorrow if she continues to do well. 5. Consult cardiac rehabilitation Current Visit: Yes Qualifiers: Congestive heart failure type: systolic Congestive heart failure chronicity : acute on chronic Qualified Code(s): I50.23 - Acute on chronic systolic ( congestive) heart failure (2) Mitral regurgitation Status: Chronic Current Visit: Yes Qualifiers: Cardiac valve disease etiology: nonrheumatic Qualified Code(s): I34.0 - Nonrheumatic mitral (valve) insufficiency (3) Aortic stenosis Status: Chronic Current Visit: No (4) Coronary artery disease Status: Chronic Current Visit: No Qualifiers: Coronary Disease-Associated Artery/Lesion type: [place] artery [place] vs. transplanted heart: [place] heart Associated angina: without angina Qualified Code(s): I25.10 - Atherosclerotic heart disease of [place] coronary artery without angina pectoris (5) Pulmonary edema Status: Resolved Current Visit: No Cardiology - PN: Subj Interval history: Ms. Moscoso is feeling much better. She still feels "weak" and has some dyspnea on exertion but is feeling fairly well otherwise. She is not having any chest discomfort this morning. I recommend heart catheterization with coronary mention on her circumflex and possibly her LAD if WaveWire evaluation dictates it. However she declines and wants to "go home and get stronger". I discussed with her that given she has been admitted with required intubation multiple times and is not a candidate for bypass that I suspect she will come back again with similar circumstances. She understands this and wishes to go home as soon as "you think it is okay". She is interested in home oxygen but we are uncertain whether she needs it. Exam (Progress Note) - Constitutional Vitals: Period Temp Pulse Resp BP Sys/Pina Pulse Ox Last 24 Hr 98 F-100.2 F 61-75 16-22 117-157/55-78 90-99 General appearance: normal weight, no acute distress - Head Head exam: Present: normal inspection, normocephalic, atraumatic - Neck Neck exam: Present: normal inspection - Respiratory Respiratory exam: Present: rales. Absent: wheezes - Cardiovascular Cardiovascular exam: Present: systolic murmur. Absent: diastolic murmur, rubs - GI/Abdominal GI/Abdominal exam: Present: soft. Absent: tenderness - Extremities Exam Extremities exam: Present: edema (Trace edema) Result/EKG - Labs CBC & BMP: 05/02/17 04:35 05/02/17 04:35 Labs: Laboratory Results - last 24 hr 05/01/17 05/01/17 05/01/17 12:32 16:23 20:53 WBC RBC Hgb Hct MCV MCH MCHC RDW Plt Count MPV Neut % (Auto) Lymph % (Auto) [place] % (Auto) Eos % (Auto) Baso % (Auto) Neut # (Auto) Lymph # (Auto) [place] # (Auto) Eos # (Auto) Baso # (Auto) Immature Gran % Nucleated RBC % Immature Gran # Nucleated RBCs # Sodium Potassium Chloride Carbon Dioxide Anion Gap BUN Creatinine GFR Calculation BUN/Creatinine Ratio Glucose POC Glucose 263 H 181 H 171 H Calculated Osmolality Calcium Magnesium 05/02/17 05/02/17 05/02/17 04:35 04:35 08:02 WBC 9.3 RBC 3.70 L Hgb 10.3 L Hct 32.1 L MCV 86.8 L MCH 28 MCHC 32.1 RDW 14.2 Plt Count 240 MPV 10.7 Neut % (Auto) 68.8 Lymph % (Auto) 18.8 L [place] % (Auto) 8.0 Eos % (Auto) 4.0 Baso % (Auto) 0.1 Neut # (Auto) 6.4 Lymph # (Auto) 1.8 [place] # (Auto) 0.8 Eos # (Auto) 0.4 Baso # (Auto) 0.0 Immature Gran % 0.3 Nucleated RBC % 0.0 Immature Gran # 0.03 Nucleated RBCs # 0.00 Sodium 142 Potassium 3.5 Chloride 105 Carbon Dioxide 29 Anion Gap 11.5 BUN 33 H Creatinine 1.30 H GFR Calculation 36 BUN/Creatinine Ratio 25.00 H Glucose 114 H POC Glucose 131 H Calculated Osmolality 290.1 Calcium 7.9 L Magnesium 1.8
[2017-05-02] MEDS: MULTIVITAMIN (CENTRUM) TABLET PO SCH (09:24)
[2017-05-02] MEDS: CLOPIDOGREL 75 MG TABLET PO SCH (09:24)
[2017-05-02] MEDS: INSULIN REGULAR 100 UNIT/ML SUBCUT SCH ×4 (09:24→20:39)
[2017-05-02] MEDS: SPIRONOLACTONE 25 MG TABLET PO SCH (09:24)
[2017-05-02] MEDS: amLODIPine 5 MG TABLET PO SCH (09:24)
[2017-05-02] MEDS: CARVEDILOL 12.5 MG TABLET PO SCH ×2 (09:24→20:39)
[2017-05-02] MEDS: PANTOPRAZOLE 40 MG TABLET PO SCH (09:24)
[2017-05-02] MEDS: ISOSORBIDE MONONITRATE 30 MG TABLET PO SCH (09:24)
[2017-05-02] MEDS: glyBURIDE 2.5 MG TABLET PO SCH ×2 (09:24→17:11)
[2017-05-02] MEDS: ASPIRIN CHEW 81 MG TABLET PO SCH (09:24)
[2017-05-02] MEDS: FUROSEMIDE 40 MG TABLET PO SCH ×2 (09:24→17:08)
[2017-05-02] MEDS: OFLOXACIN 0.3% OPH SOLN 10 ML BOTTLE LEFT EYE SCH ×4 (09:25→20:40)
[2017-05-02] MEDS: POTASSIUM CHLORIDE 20 MEQ/15 ML UDCUP PER TUBE SCH (09:25)
[2017-05-02] MEDS ORDERED: POTASSIUM CHLORIDE RIDER 10 MEQ in PREMIX 1 EACH IV PRN (10:52)
[2017-05-02] MEDS ORDERED: MAGNESIUM SULF RIDER 2 GM in PREMIX 1 EACH IV PRN (10:52)
[2017-05-02] MEDS ORDERED: diphenhydrAMINE CAP 25 MG CAPSULE PO ONE (10:52)
[2017-05-02] MEDS ORDERED: DIAZEPAM 5 MG TABLET PO ONE (10:52)
--- NOTE | 2017-05-02 10:52 | Event Note ---
I was called back to see Ms. Moscoso. She says she is reconsiders wants to undergo heart catheterization with intervention if appropriate. We tentatively have her on for 8:30 AM and will plan atherectomy and stenting of her circumflex , with WaveWire evaluation of LAD and intervention if the results dictate. I discussed with the patient the risks and benefits of heart catheterization including but not limited to: , stroke, heart attack, vascular damage, reaction to medicine or dye, bleeding requiring blood transfusion, failure of the procedure, and the possible need for planned or emergency surgery. I have answered all the patient's questions regarding the procedure, and the patient is agreeable to proceed.
[2017-05-02] MEDS: ACETAMINOPHEN 500 MG TABLET PO PRN (12:19)
[2017-05-02] MEDS: LEVOFLOXACIN INJ 250 MG in PREMIX 1 EACH IV SCH (12:23)
--- NOTE | 2017-05-02 12:48 | XRay Report ---
History is dyspnea on exertion's, pleural effusions Bilateral decubitus films obtained There is a very minimal, 3 to 4 mm pleural-based density lateral right chest. There is layering of approximately 2.5 cm of pleural fluid on the left chest. Underlying parenchymal opacities partially visualized Impression: 1. Moderate left pleural effusion 2. Miniscule right pleural effusion PROCEDURE INTERPRETED AT [facility] DEPARTMENT OF RADIOLOGY Final Report Signed by: Dr. Ana Luisa Peterson
--- NOTE | 2017-05-02 17:23 | Hospitalist Progress Note ---
Assessment and Plan (1) Congestive heart failure Status: Chronic Assessment and plan: patient needs valve replacement. Patient saw Dr. Green in [place] and felt that surgery would not extend her quality of life. cont lasix 40 mg po bid and spironolactone. Current Visit: No Qualifiers: Congestive heart failure type: combined Congestive heart failure chronicity : acute on chronic Qualified Code(s): I50.43 - Acute on chronic combined systolic (congestive) and diastolic (congestive) heart failure (2) Diabetes mellitus type 2 in obese Status: Chronic Assessment and plan: ISC, cont glyburide Current Visit: No (3) Essential hypertension Status: Chronic Assessment and plan: controlled with coreg and norvasc Current Visit: No (4) Mitral regurgitation Status: Chronic Assessment and plan: needs valve replacement Current Visit: Yes Qualifiers: Cardiac valve disease etiology: nonrheumatic Qualified Code(s): I34.0 - Nonrheumatic mitral (valve) insufficiency (5) Aortic stenosis Status: Chronic Assessment and plan: needs valve replacement Current Visit: No (6) Anemia Status: Chronic Assessment and plan: stable Current Visit: Yes (7) Coronary artery disease Status: Chronic Assessment and plan: plan for stent in am Current Visit: No Qualifiers: Coronary Disease-Associated Artery/Lesion type: [place] artery [place] vs. transplanted heart: [place] heart Associated angina: without angina Qualified Code(s): I25.10 - Atherosclerotic heart disease of [place] coronary artery without angina pectoris Hospitalist: Subjective Interval history: Cardiology discussing a stent her circumflex tomorrow. Exam - Constitutional Vitals: Period Temp Pulse Resp BP Sys/Pina Pulse Ox Last 24 Hr 98.6 F-99.9 F 65-75 16-20 117-140/55-78 90-94 Exam: Heart Rate-[RRR] Lungs-[CTAB] GI-[+bs soft, NT] Ext-[no edema] Neuro [Motor 5/5], [alert and oriented times 3] psych [normal mood and affect] General [no acute distress] Results - Labs CBC & BMP: 05/02/17 04:35 05/02/17 04:35 Lab Results: I have reviewed the past 24 hour labs Specialty Discharge - Follow Up or Referrals
[2017-05-02] MEDS: sitaGLIPtin 25 MG TABLET PO SCH (20:39)
[2017-05-02] MEDS: ATORVASTATIN 80 MG TABLET PO SCH (20:39)
[2017-05-03 05:28] LABS: Basophils % 0.3 % (0.0-0.8); Eosinophils # 0.6 10*3/uL (0.0-0.87); Eosinophils % 5.4 % (0.00-10.9); Hematocrit 32.4 VOL% (35.7-47.0); Hemoglobin 10.5 GM/DL (12.0-16.0); Immature Granulocytes % 0.4 %; Immature Granulocytes Absolute 0.04 #; Lymphocytes # 2.3 10*3/uL (1.4-4.0); Lymphocytes % 21.2 % (21.3-54.2); Mean Corpuscular HGB Conc 32.4 GM/DL (32-36); Mean Corpuscular Hemoglobin 28 PG (27-34); Mean Corpuscular Volume 85.5 FL (87-102); Mean Platelet Volume 10.4 FL (9.6-12.0); Monocytes # 0.9 10*3/uL (0.11-0.8); Monocytes % 7.8 % (1.7-12.7); Neutrophils % 64.9 % (38.7-73.9); Platelet Count 302 T/CUMM (130-400); Red Blood Count 3.79 MC/CUMM (3.8-5.5); Red Cell Distribution Width 14.2 % (9.3-17.3); White Blood Count 10.8 T/CUMM (4-12)
[2017-05-03 05:46] LABS: INR 1.1; PT Patient Result 11.9 SECS
[2017-05-03 06:02] LABS: Calcium 8.6 MG/DL (8.5-10.1); Osmolality,Calculated 290.8 MOS/KG (273-304); Potassium 3.3 MMOL/L (3.5-5.1)
[2017-05-03 06:13] LABS: Eosinophils 8 % (0-10); Hypochromasia 1+; Lymphocytes 17 % (20-55); Platelet Estimate Adequate; Segmented Neutrophils 62 % (50-85); Total Cells Counted 100
[2017-05-03] MEDS ORDERED: DEXTROSE 50% 25 GM/50 ML VIAL IV ONE (07:44)
[2017-05-03] MEDS: DEXTROSE 50% 25 GM/50 ML VIAL IV PRN (07:46)
[2017-05-03] MEDS ORDERED: LIDOCAINE 1% 20 ML VIAL ONE (07:46)
[2017-05-03] MEDS ORDERED: diphenhydrAMINE CAP 50 MG CAPSULE ONE (07:49)
[2017-05-03] MEDS ORDERED: DIAZEPAM 5 MG TABLET ONE (07:50)
[2017-05-03] MEDS: ASPIRIN CHEW 81 MG TABLET PO SCH (07:53)
[2017-05-03] MEDS: CARVEDILOL 12.5 MG TABLET PO SCH ×2 (07:54→21:51)
[2017-05-03] MEDS: INSULIN REGULAR 100 UNIT/ML SUBCUT SCH ×4 (07:54→21:51)
[2017-05-03] MEDS: glyBURIDE 2.5 MG TABLET PO SCH ×2 (07:54→16:55)
[2017-05-03] MEDS: CLOPIDOGREL 75 MG TABLET PO SCH (07:55)
[2017-05-03] MEDS: ISOSORBIDE MONONITRATE 30 MG TABLET PO SCH (07:55)
[2017-05-03] MEDS: amLODIPine 5 MG TABLET PO SCH (07:55)
[2017-05-03] MEDS: PANTOPRAZOLE 40 MG TABLET PO SCH (07:56)
--- NOTE | 2017-05-03 08:09 | XRay Report ---
History is pleural effusions follow-up infiltrates Comparison 05/01/2017 The heart is mildly enlarged Prior vascular congestion is mildly improved There remain mild diffuse bilateral interstitial and hazy opacities more pronounced in the left with improvement in the interval. Tiny effusions remain. The mildly more focal consolidation and/or effusion in the left base obscuring the left diaphragm is mildly worsened in the interval. Impression: Mixed interval change with interval improvement of prior diffuse pulmonary edema and mild worsening of more focal consolidation and/or effusion at the left base PROCEDURE INTERPRETED AT [facility] DEPARTMENT OF RADIOLOGY Final Report Signed by: Dr. Ana Luisa Peterson
[2017-05-03] MEDS ORDERED: MIDAZOLAM 2 MG/2 ML VIAL ONE (08:13)
[2017-05-03] MEDS ORDERED: HYDROmorphone 2 MG/1 ML VIAL ONE (08:13)
[2017-05-03] MEDS ORDERED: ADENOSINE 90 MG/30 ML VIAL IV ONE (08:50)
[2017-05-03] MEDS ORDERED: NITROGLYCERIN DRIP 50 MG/250 ML BOTTLE IV ONE (09:20)
[2017-05-03] MEDS ORDERED: HEPARIN 5,000 UNIT/1 ML VIAL ONE (09:22)
[2017-05-03] MEDS ORDERED: TIROFIBAN 5,000 MCG/100 ML PREMIX IV ONE (09:22)
[2017-05-03] MEDS ORDERED: CLOPIDOGREL 300 MG TABLET ONE (10:05)
--- NOTE | 2017-05-03 10:21 | Cardiac Catheterization ---
Date of Procedure:: 05/03/17 Post-op diagnosis: same Procedure: Procedure performed: 1. Left coronary angiography 2. WaveWire evaluation of mid LAD 3. Orbital atherectomy mid LAD with 1.25 CSI crown 4. Stenting of mid LAD with drug-eluting stent (3.0 x 20 synergy) 5. Orbital atherectomy of proximal circumflex with 1.25 CSI crown 6. Stenting of proximal circumflex with drug-eluting stent (2.25 x 16) Brief clinical summary: Ms. Moscoso is a 76-year-old known three-vessel disease with 2 admissions requiring intubation for pulmonary edema. With modest troponin elevation suggesting non-STEMI. Description of procedure: After informed consent the posterior edge of the cath over the right groin was prepped and draped in usual sterile fashion. A short 6 Bengali sheath was placed right femoral artery was significant difficulty ( very calcified vessel, had significant difficulty advancing the sheath but was able to after some readjustments). Next and EBU 3.5 guiding cath was advancing his left coronary artery provided fair support. Percutaneous coronary mention was then performed as described below. After intervention and angiogram showed the sheath was inserted in the right common femoral artery vessel suitable for closure. Hemostasis was obtained with an Angio-Seal device with no residual bleeding. Percutaneous coronary intervention: A wave wire was advanced across the mid LAD lesion and adenosine infusion was given intravenously. Adenosine infusion was performed which showed the lesion was significant at 0.77. The wire was then removed and a Viper wire was advanced to the distal LAD with only modest difficulty. After this a 1.25 CSI crown was advanced and multiple low and medium spin passes were performed. This was then removed from the body. After this a 3.0 x 20 Synergy drug-eluting stent was advanced crosshair disease was deployed at just above nominal pressures. Flow is slightly delayed, and the patient was immediately given 5000 units of heparin. I subsequently gave Aggrastat bolus and infusion. She arrived to the Operating [employer] already on aspirin and Plavix. After the procedure she was given additional 6 mg of Plavix. ACT was over 500 and so the Aggrastat infusion was stopped. Follow-up ACT was in the upper 300s. At the end the procedure after was completed the ACT was 220. I also gave 200 mcg of intracoronary nitroglycerin after the post stent deployment shot. After this there was an excellent angiographic result with SLADE-3 flow. The wire was then redirected into the circumflex with moderate difficulty. I eventually advanced into the marginal branch. I advanced a Godzilla guiding catheter and advanced into the proximal circumflex to facilitate delivery of the atherectomy device. However the atherectomy device would not pass into the Laura guiding catheter as it was too small. Therefore the CSI device and the Godzilla was removed. I then advanced the CSI device and performed about 5 low speed passes across the of critical disease. It would "jump" across the lesion the first couple of passes which gradually improved. There was no resistance in the last past. The CSI crown was then removed. After this a 2.25 x 16 Synergy stent was advanced across her disease and deployed at above nominal pressures with an excellent angiographic result. The patient target she well without any symptoms during the procedure. The guidewire and stent balloon were removed from the body. Left coronary angiography: Left main coronary artery has mild proximal disease of about 30%. Left anterior descending artery is at least average in caliber with 50% smooth proximal disease. There is a large area of intermediate 60-70% heavily calcified high mid LAD disease. There is a thin but relatively long diagonal branch immediately after the area of disease. The left anterior descending wraps around the apex. The circumflex vessel is slightly smaller than average and gives off an average caliber, but very long ramus branch. The proximal circumflex has a 99% area stenosis which is heavily calcified. There is a slightly thinner than average for long OM1 and OM 2 branch. There is a tubular 80% stenosis immediately at the takeoff of the OM1 branch. However the branches at most 2 mm in diameter. The right coronary was not evaluated on this study (see heart cath March 2017) Impression: 1. 50% smooth proximal LAD stenosis with significant, heavily calcified 70% mid LAD stenosis (significant by WaveWire evaluation with FFR 0.77) 2. 99% proximal circumflex stenosis, as well as 80% tubular ostial OM 2 stenosis 3. Known ostial RCA occlusion with filling of the RCA by [id number] collaterals (evaluated March 2017) 4. Status post successful orbital atherectomy and stenting of mid LAD with 3.0 x 20 Synergy drug-eluting stent with excellent result 5. Status post successful orbital atherectomy and stenting of proximal circumflex with 2.25 x 16 Synergy link stent with less than 20% residual stenosis per Anesthesia: minimal conscious sedation Surgeon / Physician: Arsenio Medley Laundry Washer: other Estimated blood loss: minimal Specimens: none sent Condition: stable Disposition: floor - Medications / Follow-up
[2017-05-03] MEDS ORDERED: SODIUM CHLORIDE 0.45% 1,000 ML IV SCH (10:30)
--- NOTE | 2017-05-03 10:57 | EKG Report ---
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
[2017-05-03] MEDS: OFLOXACIN 0.3% OPH SOLN 10 ML BOTTLE LEFT EYE SCH ×4 (11:05→21:56)
[2017-05-03 11:47] LABS: Troponin I Only 0.122 NG/ML (0.00-0.045)
--- NOTE | 2017-05-03 15:53 | Hospitalist Progress Note ---
Assessment and Plan (1) Congestive heart failure Status: Chronic Assessment and plan: patient needs valve replacement. BNP is still extremely elevated we go back to IV Lasix of 40 mg IV twice daily Current Visit: No Qualifiers: Congestive heart failure type: combined Congestive heart failure chronicity : acute on chronic Qualified Code(s): I50.43 - Acute on chronic combined systolic (congestive) and diastolic (congestive) heart failure (2) Diabetes mellitus type 2 in obese Status: Chronic Assessment and plan: Blood sugars too high, iSC, cont glyburide Current Visit: No (3) Essential hypertension Status: Chronic Assessment and plan: controlled with coreg and norvasc Current Visit: No (4) Mitral regurgitation Status: Chronic Assessment and plan: needs valve replacement Current Visit: Yes Qualifiers: Cardiac valve disease etiology: nonrheumatic Qualified Code(s): I34.0 - Nonrheumatic mitral (valve) insufficiency (5) Aortic stenosis Status: Chronic Assessment and plan: needs valve replacement Current Visit: No (6) Anemia Status: Chronic Assessment and plan: stable, she is a [employer] and does not want blood. Current Visit: Yes (7) Coronary artery disease Status: Chronic Assessment and plan: S/P cath-50% smooth proximal LAD stenosis with significant, heavily calcified 70 % mid LAD stenosis (significant by WaveWire evaluation with FFR 0.77) 2. 99% proximal circumflex stenosis, as well as 80% tubular ostial OM 2 stenosis 3. Known ostial RCA occlusion with filling of the RCA by [id number] collaterals (evaluated March 2017) 4. Status post successful orbital atherectomy and stenting of mid LAD with 3.0 x 20 Synergy drug-eluting stent with excellent result 5. Status post successful orbital atherectomy and stenting of proximal circumflex with 2.25 x 16 Synergy link stent with less than 20% residual stenosis per Current Visit: No Qualifiers: Coronary Disease-Associated Artery/Lesion type: [place] artery [place] vs. transplanted heart: [place] heart Associated angina: without angina Qualified Code(s): I25.10 - Atherosclerotic heart disease of [place] coronary artery without angina pectoris Hospitalist: Subjective Interval history: Patient is very short of breath after returning from cath. She sounds tight. Chest x-ray shows improvement of pulmonary edema but questionable infiltrate in the left lower lobe of the lung. We will treated for pneumonia. Her sats dropped down to 85 when oxygen was out of her nose when I was in the room. Blood sugars dropped a little bit low because she was n.p.o. after midnight. Her potassium was low and that is going to be replaced Exam - Constitutional Vitals: Period Temp Pulse Resp BP Sys/Pina Pulse Ox Last 24 Hr 98.1 F-99.9 F 66-76 14-20 121-135/49-71 90-98 Exam: Heart Rate-[RRR] Lungs-[tight and diminished GI-[+bs soft, NT] Ext-[2+ pitting edema] Neuro [Motor 5/5], [alert and oriented times 3] psych [normal mood and affect] General [no acute distress] Results - Labs CBC & BMP: 05/03/17 04:55 05/03/17 04:55 Lab Results: I have reviewed the past 24 hour labs Labs: BNP 3398 - Diagnostic Findings Procedure: Chest x-ray: report reviewed by me (Interval improvement of diffuse pulmonary edema but mild worsening of focal consolidation in the left lung base) Specialty Discharge - Follow Up or Referrals
[2017-05-03] MEDS ORDERED: FUROSEMIDE 40 MG/4 ML VIAL IV ONE (16:43)
[2017-05-03] MEDS: MULTIVITAMIN (CENTRUM) TABLET PO SCH (16:55)
[2017-05-03] MEDS: LEVOFLOXACIN INJ 250 MG in PREMIX 1 EACH IV SCH (17:02)
[2017-05-03] MEDS: POTASSIUM CHLORIDE 20 MEQ/15 ML UDCUP PER TUBE SCH (17:31)
[2017-05-03] MEDS: ALBUTEROL/IPRATROPIUM 3 ML NEB RESP TX SCH (19:44)
[2017-05-03] MEDS: FUROSEMIDE 40 MG TABLET PO SCH (21:02)
[2017-05-03] MEDS: SPIRONOLACTONE 25 MG TABLET PO SCH (21:03)
[2017-05-03] MEDS: ATORVASTATIN 80 MG TABLET PO SCH (21:51)
[2017-05-03] MEDS: sitaGLIPtin 25 MG TABLET PO SCH (21:51)
[2017-05-03] MEDS: ZALEPLON 5 MG CAPSULE PO PRN (21:51)
[2017-05-04] MEDS: ALBUTEROL/IPRATROPIUM 3 ML NEB RESP TX SCH ×4 (00:01→21:27)
[2017-05-04] MEDS: ACETAMINOPHEN 500 MG TABLET PO PRN ×2 (00:05→19:40)
[2017-05-04 05:24] LABS: Basophils % 0.1 % (0.0-0.8); Eosinophils # 0.5 10*3/uL (0.0-0.87); Eosinophils % 5.1 % (0.00-10.9); Hematocrit 29.6 VOL% (35.7-47.0); Hemoglobin 9.5 GM/DL (12.0-16.0); Immature Granulocytes % 0.6 %; Immature Granulocytes Absolute 0.06 #; Lymphocytes # 1.9 10*3/uL (1.4-4.0); Lymphocytes % 18.4 % (21.3-54.2); Mean Corpuscular HGB Conc 32.1 GM/DL (32-36); Mean Corpuscular Hemoglobin 28 PG (27-34); Mean Corpuscular Volume 86.8 FL (87-102); Mean Platelet Volume 10.1 FL (9.6-12.0); Monocytes % 9.3 % (1.7-12.7); Neutrophils % 66.5 % (38.7-73.9); Platelet Count 293 T/CUMM (130-400); Red Blood Count 3.41 MC/CUMM (3.8-5.5); Red Cell Distribution Width 14.5 % (9.3-17.3); White Blood Count 10.5 T/CUMM (4-12)
[2017-05-04 06:06] LABS: CKMB % 7.2 %; Calcium 8.4 MG/DL (8.5-10.1); Potassium 3.7 MMOL/L (3.5-5.1)
[2017-05-04 06:08] LABS: Troponin I Only 10.5 NG/ML (0.00-0.045)
[2017-05-04 06:10] LABS: Calcium 8.2 MG/DL (8.5-10.1); Osmolality,Calculated 289.8 MOS/KG (273-304); Potassium 3.7 MMOL/L (3.5-5.1)
[2017-05-04] MEDS: DEXTROSE 50% 25 GM/50 ML VIAL IV PRN (07:04)
--- NOTE | 2017-05-04 07:30 | EKG Report ---
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
--- NOTE | 2017-05-04 08:24 | XRay Report ---
History respiratory distress Comparison 05/03/2017 and other prior films The heart and vessels are mildly enlarged There is worsening of moderate diffuse bilateral interstitial and hazy pulmonary opacities and underlying effusions. The mildly more focal atelectasis and/or effusion obscures left diaphragm. Skinfolds overlie the upper chest. The markings the right apex similar on prior studies. Some which is likely a atherosclerotic changes. Impression: Mild worsening of diffuse pulmonary edema. Follow-up until clear recommended PROCEDURE INTERPRETED AT [facility] DEPARTMENT OF RADIOLOGY Final Report Signed by: Dr. Ana Luisa Peterson
[2017-05-04] MEDS: INSULIN REGULAR 100 UNIT/ML SUBCUT SCH ×2 (08:52→12:47)
[2017-05-04] MEDS: POTASSIUM CHLORIDE 20 MEQ/15 ML UDCUP PER TUBE SCH (09:29)
[2017-05-04] MEDS: MULTIVITAMIN (CENTRUM) TABLET PO SCH (09:31)
[2017-05-04] MEDS: CLOPIDOGREL 75 MG TABLET PO SCH (09:31)
[2017-05-04] MEDS: ISOSORBIDE MONONITRATE 30 MG TABLET PO SCH (09:31)
[2017-05-04] MEDS: ASPIRIN CHEW 81 MG TABLET PO SCH (09:32)
[2017-05-04] MEDS: PANTOPRAZOLE 40 MG TABLET PO SCH (09:32)
[2017-05-04] MEDS: CARVEDILOL 12.5 MG TABLET PO SCH ×2 (09:32→21:02)
[2017-05-04] MEDS: amLODIPine 5 MG TABLET PO SCH (09:32)
[2017-05-04] MEDS: glyBURIDE 2.5 MG TABLET PO SCH ×2 (09:37→19:14)
[2017-05-04] MEDS: OFLOXACIN 0.3% OPH SOLN 10 ML BOTTLE LEFT EYE SCH ×4 (09:38→21:04)
--- NOTE | 2017-05-04 12:24 | Cardiology Progress Note ---
Assessment and Plan - Time spent with patient Time spent with patient: Less than 30 minutes (1) CHF (congestive heart failure) Status: Acute Assessment and plan: See plan of care listed below. Current Visit: Yes Qualifiers: Congestive heart failure type: systolic Congestive heart failure chronicity : acute on chronic Qualified Code(s): I50.23 - Acute on chronic systolic ( congestive) heart failure (2) Acute respiratory failure Status: Acute Assessment and plan: See plan of care listed below. Current Visit: Yes (3) Anemia Status: Chronic Assessment and plan: See plan of care listed below. Current Visit: Yes (4) Chronic kidney disease (CKD) Status: Chronic Assessment and plan: See plan of care listed below. Current Visit: Yes Qualifiers: Chronic kidney disease stage: stage 4 (severe) Qualified Code(s): N18.4 - Chronic kidney disease, stage 4 (severe) (5) Aortic insufficiency Status: Chronic Assessment and plan: See plan of care listed below. Current Visit: Yes Qualifiers: Cardiac valve disease etiology: nonrheumatic Qualified Code(s): I35.1 - Nonrheumatic aortic (valve) insufficiency (6) Mitral regurgitation Status: Chronic Assessment and plan: See plan of care listed below. Current Visit: Yes Qualifiers: Cardiac valve disease etiology: nonrheumatic Qualified Code(s): I34.0 - Nonrheumatic mitral (valve) insufficiency (7) Refusal of blood transfusions as patient is Y[employer]ism Status: Chronic Assessment and plan: See plan of care listed below. 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 Medley SUMMARY: Ms. Moscoso is a 76 year old female with a history of coronary artery disease, aortic insufficiency, mitral regurgitation, congestive heart failure, diabetes, hyperlipidemia, and hypertension. She is status post non-STEMI with three-vessel CAD (occluded ostial RCA, 70% calcific proximal LAD, 90% proximal circumflex) per left heart catheterization on . She was previously admitted for CHF and NSTEMI and was home for 3 days before returning to the ER with SOB and required intubation. She was discharged from our facility on 04/12/17 to [facility] under the care of Dr. Giovani Monroe. He reviewed all of our studies and he agrees that this is likely moderate valve disease in both the mitral position from the stenosis standpoint and moderate /AI. This is most consistent with her most recent transthoracic echocardiogram on 04/05/17 which revealed an EF of 40-45%, mild LVH, moderate aortic insufficiency, mild mitral insufficiency. She was transferred to our facility from [facility] on 04/24/2017 for further evaluation of shortness of breath. She was intubated in the emergency room and has subsequently been extubated. MAY 04, 2017 UPDATE: She is now s/p stenting of the mid LAD with a ANGELA, orbital atherectomy of the proximal circumflex, and stenting of the proximal circumflex with a ANGELA. Her right groin cath site is doing good. Dressing was removed. There is no bleeding, hematoma, or bruit at site. She has mild tenderness to palpation but no ecchymosis. Femoral pulse is 3+. Peripheral pulses are present and palpable bilaterally. Cardiac rehab has been consulted and she should be ready for discharge soon. ASSESSMENT/PLAN: 1. CONGESTIVE HEART FAILURE - NYHA Class IV. Recent echocardiogram revealed EF 40-45%. According to her records, her reports that she is noncompliant with fluid restriction at home. Spironolactone 25mg daily was added to her regimen. 2. ACUTE RESPIRATORY FAILURE - She required mechanical ventilation for several days but has subsequently been extubated and is doing well. 3. ANEMIA - H&H currently stable at 9.5 and 29.6. 4. CHRONIC KIDNEY DISEASE - Will try to avoid nephrotoxic agents. Creatinine 1.3. Creatinine has improved significantly since holding her ARB. 5. CORONARY ARTERY DISEASE - Continue ASA, beta hector, statin. 6. AORTIC INSUFFICIENCY - Echocardiogram was repeated on 04/05/2017 and revealed EF 40-45%, mild LVH, moderate aortic insufficiency, mild mitral insufficiency. She actually seems to have a better ejection fraction now and her valve disease did not seem severe as previously documented. She was transferred to [facility] on 04/12/17 to the care of Dr. Giovani Monroe; however, she was not felt to be a surgical candidate. We will continue support and diuresis and offloading. 7. MITRAL REGURGITATION - Echocardiogram was repeated on 04/05/2017 and revealed EF 40-45%, mild LVH, moderate aortic insufficiency, mild mitral insufficiency. She actually seems to have a better ejection fraction now and her valve disease did not seem severe as previously documented. 8. REFUSAL OF BLOOD PRODUCTS/ - I have seen Mrs. 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 She is willing to consider taking a transfusion from her self at a later time. Exam (Progress Note) - Constitutional Vitals: Period Temp Pulse Resp BP Sys/Pina Pulse Ox Last 24 Hr 99 F-100.2 F 60-78 14-20 95-137/51-93 88-98 Exam: General: Present: Appears Well, No Apparent Distress. Pleasant and cooperative. Appears comfortable. HEENT: Present: PERRL, Normocephaly, atraumatic. Mucus Membranes Moist. No jaundice noted. Conjunctiva moist and clear, sclerae anicteric Neck: Present: Supple Neck, Midline Trachea, No Masses, No Bruit, No tenderness Cardiac: Present: Regular Rate and Rhythm, Systolic Murmur Lungs: Present: Bibasilar rales posteriorly, otherwise Clear to auscultation bilaterally, no wheeze, rhonchi. Neuro: Present: Awake, alert, and oriented x3. Moves all extremities well without hemiparesis or paralysis. Grossly Intact. Absent: Resting Tremor, Essential Tremor Abdomen: Present: Soft, Active Bowel Sounds, No Masses, Non-Tender, nondistended. No abdominal bruit or thrill noted. Skin: Present: Clear. Absent: Rash, No skin breakdown. Back: Normal inspection, no vertebral tenderness. Musculoskeletal: Present: No Fluid Collection, No Pain, Normal Range of Motion Extremities: Present: Normal Gait, No Clubbing, No Cyanosis, Upper Extr. Pulses 2+, Lower Extr. Pulses 2+, 1+ edema to BLE. Capillary refill less than 3 seconds. Result/EKG - Labs CBC & BMP: 05/04/17 05:04 05/04/17 05:04 Lab Results: I have reviewed the past 24 hour labs Labs: Laboratory Results - last 24 hr 05/03/17 05/03/17 05/04/17 16:23 20:00 05:04 WBC RBC Hgb Hct MCV MCH MCHC RDW Plt Count MPV Neut % (Auto) Lymph % (Auto) Knott % (Auto) Eos % (Auto) Baso % (Auto) Neut # (Auto) Lymph # (Auto) Knott # (Auto) Eos # (Auto) Baso # (Auto) Immature Gran % Nucleated RBC % Immature Gran # Nucleated RBCs # Sodium 143 Potassium 3.7 Chloride 108 H Carbon Dioxide 29 Anion Gap 9.7 BUN 32 H Creatinine 1.30 H GFR Calculation 36 BUN/Creatinine Ratio 24.00 H Glucose 54 L POC Glucose 252 H 330 H Calculated Osmolality 289.0 Calcium 8.4 L Magnesium Total Creatine Kinase 162 D CK-MB (CK-2) 11.6 H D CK and CKMB Interp 7.2 Troponin I 10.500 H D 05/04/17 05/04/17 05/04/17 05:04 05:04 07:02 WBC 10.5 RBC 3.41 L Hgb 9.5 L Hct 29.6 L MCV 86.8 L MCH 28 MCHC 32.1 RDW 14.5 Plt Count 293 MPV 10.1 Neut % (Auto) 66.5 Lymph % (Auto) 18.4 L Knott % (Auto) 9.3 Eos % (Auto) 5.1 Baso % (Auto) 0.1 Neut # (Auto) 7.0 Lymph # (Auto) 1.9 Knott # (Auto) 1.0 H Eos # (Auto) 0.5 Baso # (Auto) 0.0 Immature Gran % 0.6 Nucleated RBC % 0.0 Immature Gran # 0.06 Nucleated RBCs # 0.00 Sodium 144 Potassium 3.7 Chloride 109 H Carbon Dioxide 29 Anion Gap 9.7 BUN 31 H Creatinine 1.30 H GFR Calculation 36 BUN/Creatinine Ratio 23.00 H Glucose 52 L POC Glucose 59 L Calculated Osmolality 289.8 Calcium 8.2 L Magnesium 2.0 Total Creatine Kinase CK-MB (CK-2) CK and CKMB Interp Troponin I 05/04/17 05/04/17 07:45 11:21 WBC RBC Hgb Hct MCV MCH MCHC RDW Plt Count MPV Neut % (Auto) Lymph % (Auto) Knot[place] % (Auto) Eos % (Auto) Baso % (Auto) Neut # (Auto) Lymph # (Auto) Knott # (Auto) Eos # (Auto) Baso # (Auto) Immature Gran % Nucleated RBC % Immature Gran # Nucleated RBCs # Sodium Potassium Chloride Carbon Dioxide Anion Gap BUN Creatinine GFR Calculation BUN/Creatinine Ratio Glucose POC Glucose 175 H 281 H Calculated Osmolality Calcium Magnesium Total Creatine Kinase CK-MB (CK-2) CK and CKMB Interp Troponin I - EKG EKG results: interpreted by me, sinus rhythm Specialty Discharge - Follow Up or Referrals
[2017-05-04] MEDS: LEVOFLOXACIN INJ 250 MG in PREMIX 1 EACH IV SCH (12:42)
--- NOTE | 2017-05-04 13:16 | Hospitalist Progress Note ---
Assessment and Plan (1) Congestive heart failure Status: Chronic Assessment and plan: patient needs valve replacement. Restart Lasix of 40 mg IV twice daily Current Visit: No Qualifiers: Congestive heart failure type: combined Congestive heart failure chronicity : acute on chronic Qualified Code(s): I50.43 - Acute on chronic combined systolic (congestive) and diastolic (congestive) heart failure (2) Diabetes mellitus type 2 in obese Status: Chronic Assessment and plan: Blood sugars not controlled, I am going to allow them to run high for now continue glyburide and Januvia and do not give insulin coverage because it drops her too low. Current Visit: No (3) Essential hypertension Status: Chronic Assessment and plan: controlled with coreg and norvasc Current Visit: No (4) Mitral regurgitation Status: Chronic Assessment and plan: needs valve replacement Current Visit: Yes Qualifiers: Cardiac valve disease etiology: nonrheumatic Qualified Code(s): I34.0 - Nonrheumatic mitral (valve) insufficiency (5) Aortic stenosis Status: Chronic Assessment and plan: needs valve replacement Current Visit: No (6) Anemia Status: Chronic Assessment and plan: stable, she is a [employer] and does not want blood. Current Visit: Yes (7) Coronary artery disease Status: Chronic Assessment and plan: S/P cath-50% smooth proximal LAD stenosis with significant, heavily calcified 70 % mid LAD stenosis (significant by WaveWire evaluation with FFR 0.77) 2. 99% proximal circumflex stenosis, as well as 80% tubular ostial OM 2 stenosis 3. Known ostial RCA occlusion with filling of the RCA by [id number] collaterals (evaluated March 2017) 4. Status post successful orbital atherectomy and stenting of mid LAD with 3.0 x 20 Synergy drug-eluting stent with excellent result 5. Status post successful orbital atherectomy and stenting of proximal circumflex with 2.25 x 16 Synergy link stent with less than 20% residual stenosis per Current Visit: No Qualifiers: Coronary Disease-Associated Artery/Lesion type: [place] artery [place] vs. transplanted heart: [place] heart Associated angina: without angina Qualified Code(s): I25.10 - Atherosclerotic heart disease of [place] coronary artery without angina pectoris Hospitalist: Subjective Interval history: Patient really wanted to go home today but I was nervous about her going home so soon. She still has a lot of fluid on her. Her BNP is also very elevated Exam - Constitutional Vitals: Period Temp Pulse Resp BP Sys/Pina Pulse Ox Last 24 Hr 99 F-100.2 F 60-78 14-20 95-137/51-93 88-98 Exam: Heart Rate-[RRR] Lungs-[clear but diminished GI-[+bs soft, NT] Ext-[1+ pitting edema] Neuro [Motor 5/5], [alert and oriented times 3] psych [normal mood and affect] General [no acute distress] Results - Labs CBC & BMP: 05/04/17 05:04 05/04/17 05:04 Lab Results: I have reviewed the past 24 hour labs Specialty Discharge - Follow Up or Referrals
[2017-05-04] MEDS: FUROSEMIDE 40 MG/4 ML VIAL IV SCH ×2 (15:10→19:08)
[2017-05-04] MEDS ORDERED: ACETAMINOPHEN 500 MG TABLET PO ONE (17:18)
[2017-05-04] MEDS ORDERED: ACETAMINOPHEN 500 MG TABLET PO SCH (18:00)
[2017-05-04] MEDS: ATORVASTATIN 80 MG TABLET PO SCH (21:02)
[2017-05-04] MEDS: sitaGLIPtin 25 MG TABLET PO SCH (21:02)
[2017-05-04] MEDS: ZALEPLON 5 MG CAPSULE PO PRN (21:03)
[2017-05-04 21:21] LABS: Apearance,Urine Slightly Hazy (Clear); Bilirubin,Urine Negative (Negative); Blood, Urine Negative (Negative); Glucose,Urine (UA) Negative (Negative); Hyaline Casts,Urine 12 /LPF (0-3); Ketones,Urine Negative (Negative); Nitrite,Urine Negative (Negative); Protein,Urine 30 MG/DL; RBC,Urine 2 /HPF (0-4); Squamous Epithelial Cell,Urine Occasional /HPF (0-10); Urine Color Yellow (Yellow); Urine Specific Gravity 1.016 (1.001-1.035); Urine Urobilinogen < 2.0 EU/DL (0.2-1.0); WBC,Urine 16 /HPF (0-6)
[2017-05-05] MEDS: ALBUTEROL/IPRATROPIUM 3 ML NEB RESP TX SCH ×2 (01:38→06:52)
[2017-05-05 05:24] LABS: Basophils % 0.1 % (0.0-0.8); Eosinophils # 0.6 10*3/uL (0.0-0.87); Eosinophils % 6.2 % (0.00-10.9); Hematocrit 27.8 VOL% (35.7-47.0); Immature Granulocytes % 0.3 %; Immature Granulocytes Absolute 0.03 #; Lymphocytes # 2.1 10*3/uL (1.4-4.0); Lymphocytes % 21.5 % (21.3-54.2); Mean Corpuscular HGB Conc 32.4 GM/DL (32-36); Mean Corpuscular Hemoglobin 28 PG (27-34); Mean Corpuscular Volume 87.4 FL (87-102); Mean Platelet Volume 10.4 FL (9.6-12.0); Monocytes # 0.8 10*3/uL (0.11-0.8); Monocytes % 7.9 % (1.7-12.7); Neutrophils # 6.1 10*3/uL (1.4-7.4); Platelet Count 261 T/CUMM (130-400); Red Blood Count 3.18 MC/CUMM (3.8-5.5); Red Cell Distribution Width 14.6 % (9.3-17.3); White Blood Count 9.6 T/CUMM (4-12)
--- NOTE | 2017-05-05 09:06 | XRay Report ---
History: Fever and cough Date: 05/05/2017 Study: Chest x-ray PA and lateral Comparison exam: May 04, 2017 There is continued cardiomegaly. The pulmonary vasculature is slightly prominent, though the same if not slightly improved. The bibasilar pulmonary edema/infiltrate persists, very minimally improved. Left greater than right pleural disease persists, unchanged. Osseous structures are similar. Impression: Continued bibasilar pulmonary edema/infiltrate with minimal interval improvement PROCEDURE INTERPRETED AT [facility] DEPARTMENT OF RADIOLOGY Final Report Signed by: Dr. Anna Isaacs
[2017-05-05] MEDS: MULTIVITAMIN (CENTRUM) TABLET PO SCH (09:37)
[2017-05-05] MEDS: CLOPIDOGREL 75 MG TABLET PO SCH (09:37)
[2017-05-05] MEDS: PANTOPRAZOLE 40 MG TABLET PO SCH (09:37)
[2017-05-05] MEDS: CARVEDILOL 12.5 MG TABLET PO SCH (09:37)
[2017-05-05] MEDS: glyBURIDE 2.5 MG TABLET PO SCH (09:37)
[2017-05-05] MEDS: ISOSORBIDE MONONITRATE 30 MG TABLET PO SCH (09:37)
[2017-05-05] MEDS: POTASSIUM CHLORIDE 20 MEQ/15 ML UDCUP PER TUBE SCH (09:38)
[2017-05-05] MEDS: FUROSEMIDE 40 MG/4 ML VIAL IV SCH (09:40)
[2017-05-05] MEDS: OFLOXACIN 0.3% OPH SOLN 10 ML BOTTLE LEFT EYE SCH (09:40)
[2017-05-05] MEDS: ASPIRIN CHEW 81 MG TABLET PO SCH (09:40)
[2017-05-05] MEDS: amLODIPine 5 MG TABLET PO SCH (09:40)
--- NOTE | 2017-05-05 10:44 | Discharge Summary ---
Hospital Course - Hospital Course Hospital Course: This is a very chronically ill 76-year-old female that presented to the ED at [facility] as a lateral transfer from the [facility] for the evaluation of shortness of breath. Patient has a history of congestive heart failure. Patient developed acute on chronic systolic congestive heart failure exacerbation and went into respiratory failure and was electively intubated in the emergency room. Patient has reoccurring bouts of congestive heart failure due to 2 bad valves including both aortic and mitral. She is got aortic stenosis and mitral regurg. She has seen Dr. Green in [place] and he did not feel due to her age that she can tolerate valve replacement. Unfortunately without valve replacement she will continue go into pulmonary edema. Patient is a Jain and does not want any blood. Her anemia has improved since her last visit to the hospital. She is a diabetic. She also has coronary disease. She electively decided to have a cardiac cath when she was extubated to have a stent placed in the mid LAD and prox circumflex. Patient tolerated the procedure well and indeed will be discharged home today to follow-up with cardiology in her primary care care physician. - Time spent with patient Time with patient DS: Greater than 30 minutes (60 min) Diagnosis - Discharge Diagnosis (1) Congestive heart failure Status: Chronic (2) Diabetes mellitus type 2 in obese Status: Chronic (3) Essential hypertension Status: Chronic (4) Mitral regurgitation Status: Chronic (5) Aortic stenosis Status: Chronic (6) Anemia Status: Chronic (7) Coronary artery disease Status: Chronic Specialty Discharge - Follow Up or Referrals Follow up with: [facility] [Provider Group] - 2 Weeks Arsenio Medley MD [Physician] - 05/11/17 1:30 pm Discharge Plan - Discharge Data Disposition: Home Health Service Condition at Discharge: Stable Discharge Diet: diabetic diet Activity: resume usual activities as tolerated Hygiene: no restrictions Weight Bearing at Discharge: full weight bearing - Discharge Medications New Ampicillin Cap 500 mg PO BID #10 capsule Aspirin Chew Tab 81 mg PO DAILY tablet Pantoprazole Tab [Protonix Tab] 40 mg PO DAILY #30 tablet Continue Ofloxacin 0.3% Oph Soln [Ocuflox 0.3% Oph Soln] 1 drop LEFT EYE QID Polyvinyl Alcohol [Artificial Tears] 1 ml BOTH EYES QID PRN PRN Reason: Dry Eyes Carvedilol [Coreg] 12.5 mg PO BID #120 tablet glyBURIDE [Diabeta] 2.5 mg PO BID W/MEALS tablet Isosorbide Mononitrate [Imdur] 30 mg PO DAILY Atorvastatin [Lipitor] 80 mg PO BEDTIME #60 tablet Clopidogrel [Plavix] 75 mg PO DAILY Multivit,Iron,Mins/Folic Acid [Centrum Specialist Heart Tab] 1 each PO DAILY Sitagliptin Phosphate [Januvia] 50 mg PO BEDTIME Losartan [Cozaar] 100 mg PO DAILY #0 Changed Furosemide Tab [Lasix Tab] 40 mg PO BID #60 Discontinued amLODIPine [Norvasc] 2.5 mg PO DAILY metFORMIN [Glucophage] 500 mg PO BID W/MEALS Potassium Chloride Cap/Tab [K Dur] 20 meq PO DAILY - Follow Up or Referral Follow Up: [facility] [Provider Group] - 2 Weeks Arsenio Medley MD [Physician] - 05/11/17 1:30 pm - Forms/Instructions Instructions: Heart Failure (GEN), Left Heart Catheterization (DC), Mitral Regurgitation (GEN), Aortic Regurgitation (GEN), Heart Healthy Diet (GEN), Coronary Intravascular Stent Placement, Washroom Cleaner (GEN) Additional Discharge Instructions: free water restrict to 1500 ml daily, no salt Exam - Constitutional Vitals: Period Temp Pulse Resp BP Sys/Pina Pulse Ox Last 24 Hr 98.6 F-101.1 F 66-80 16-20 114-125/52-70 92-99 General appearance: normal weight, no acute distress - ENT ENT exam: Present: normal exam, normal external ear exam - Respiratory Respiratory exam: Present: clear to auscultation bilaterally. Absent: rhonchi, wheezes - Cardiovascular Cardiovascular exam: Present: regular rate and rhythm. Absent: systolic murmur - GI/Abdominal GI/Abdominal exam: Present: soft. Absent: tenderness - Extremities Exam Extremities exam: Present: normal capillary refill, edema - Neurological Exam Neurological exam: Present: alert, oriented X3 - Psychiatric Psychiatric exam: Present: normal affect, normal mood - Skin Skin exam: Present: normal color, warm Discharge Results Procedures and tests throughout hospitalization: Pending Orders 05/04/17 Urine Culture Routine Labs on day of discharge: Labs from last 24 hours 05/05/17 05/05/17 05/05/17 07:33 03:31 03:31 WBC 9.6 RBC 3.18 L Hgb 9.0 L Hct 27.8 L MCV 87.4 MCH 28 MCHC 32.4 RDW 14.6 Plt Count 261 MPV 10.4 Neut % (Auto) 64.0 Lymph % (Auto) 21.5 [place] % (Auto) 7.9 Eos % (Auto) 6.2 Baso % (Auto) 0.1 Neut # (Auto) 6.1 Lymph # (Auto) 2.1 [place] # (Auto) 0.8 Eos # (Auto) 0.6 Baso # (Auto) 0.0 Immature Gran % 0.3 Nucleated RBC % 0.0 Immature Gran # 0.03 Nucleated RBCs # 0.00 POC Glucose 111 H Total Creatine Kinase 128 D CK-MB (CK-2) 3.9 H D Troponin I 5.030 H D Urine Color Urine Appearance Urine pH Ur Specific [place] Urine Protein Urine Glucose (UA) Urine Ketones Urine Blood Urine Nitrate Urine Bilirubin Urine Urobilinogen Urine Leukocytes Urine RBC Urine WBC Ur Squamous Epith Cells Hyaline Casts Urine Yeast (Budding) Ur Culture Indicated? 05/04/17 05/04/17 05/04/17 20:43 20:11 15:59 WBC RBC Hgb Hct MCV MCH MCHC RDW Plt Count MPV Neut % (Auto) Lymph % (Auto) [place] % (Auto) Eos % (Auto) Baso % (Auto) Neut # (Auto) Lymph # (Auto) [place] # (Auto) Eos # (Auto) Baso # (Auto) Immature Gran % Nucleated RBC % Immature Gran # Nucleated RBCs # POC Glucose 210 H 184 H Total Creatine Kinase CK-MB (CK-2) Troponin I Urine Color Yellow Urine Appearance Slightly hazy Urine pH 5.0 Ur Specific [place] 1.016 Urine Protein 30 Urine Glucose (UA) Negative Urine Ketones Negative Urine Blood Negative Urine Nitrate Negative Urine Bilirubin Negative Urine Urobilinogen < 2.0 H Urine Leukocytes Moderate H Urine RBC 2 Urine WBC 16 Ur Squamous Epith Cells Occasional Hyaline Casts 12 Urine Yeast (Budding) Moderate Ur Culture Indicated? Results to follow 05/04/17 11:21 WBC RBC Hgb Hct MCV MCH MCHC RDW Plt Count MPV Neut % (Auto) Lymph % (Auto) [place] % (Auto) Eos % (Auto) Baso % (Auto) Neut # (Auto) Lymph # (Auto) [place] # (Auto) Eos # (Auto) Baso # (Auto) Immature Gran % Nucleated RBC % Immature Gran # Nucleated RBCs # POC Glucose 281 H Total Creatine Kinase CK-MB (CK-2) Troponin I Urine Color Urine Appearance Urine pH Ur Specific [place] Urine Protein Urine Glucose (UA) Urine Ketones Urine Blood Urine Nitrate Urine Bilirubin Urine Urobilinogen Urine Leukocytes Urine RBC Urine WBC Ur Squamous Epith Cells Hyaline Casts Urine Yeast (Budding) Ur Culture Indicated? Preliminary micro results at discharge 05/04/17 Unknown Urine Culture - Preliminary Urine,Voided No Growth at 12 hours. DS: Provider Date of admission: 04/24/17 10:32 Primary care physician: Adam Juárez MD Attending physician on admission: Aime Irizarry MD Consults: 04/24/17 10:06 Consult to Physician [CONS] Routine Comment: Consulting Provider: Raul Hall Consulting Provider Notified: Yes When should Consulting Provider be notified: Now Consult to Specialist Group: Cardiology Person Notified: TIFFANI Date Notified: 04/24/17 Time Notified: 11:55 Consult to Physician [CONS] Routine Comment: Consulting Provider: Abram Gr Consulting Provider Notified: Yes When should Consulting Provider be notified: Now Consult to Specialist Group: Pulmonology Person Notified: STEVE Date Notified: 04/24/17 Time Notified: 11:30 05/02/17 08:56 Consult to Cardiac Rehabilitation [CONS] Routine Reason for Cardiac Rehabilitation: Appt Out Pt Cardiac Rehab Consult Comment: ischemic cardiomyopathy; pulmonary edema, h/o NE 03/201705/03/17 10:11 Consult to Cardiac Rehabilitation [CONS] Routine Reason for Cardiac Rehabilitation: Appt Out Pt Cardiac Rehab Consult Comment: CAD; CHF; stent; PAD 05/05/17 10:29 Consult to Case Mgmt/Social Srvs [CONS] Routine Reason for Case Mgmt/Social Srvs: Home Health Other Consult Comment: pt and home health, rolator, oxygen Discharging clinician: Aurelia Brizuela MD
[2017-05-05 11:55] VITALS: BP 126/56
--- NOTE | 2017-05-05 12:10 | Cardiology Progress Note ---
<Samina Segura E - Last Filed: 05/05/17 12:03> Assessment and Plan - Time spent with patient Time spent with patient: Less than 30 minutes (1) CHF (congestive heart failure) Status: Acute Assessment and plan: See plan of care listed below. Current Visit: Yes Qualifiers: Congestive heart failure type: systolic Congestive heart failure chronicity : acute on chronic Qualified Code(s): I50.23 - Acute on chronic systolic ( congestive) heart failure (2) Acute respiratory failure Status: Acute Assessment and plan: See plan of care listed below. Current Visit: Yes (3) Anemia Status: Chronic Assessment and plan: See plan of care listed below. Current Visit: Yes (4) Chronic kidney disease (CKD) Status: Chronic Assessment and plan: See plan of care listed below. Current Visit: Yes Qualifiers: Chronic kidney disease stage: stage 4 (severe) Qualified Code(s): N18.4 - Chronic kidney disease, stage 4 (severe) (5) Aortic insufficiency Status: Chronic Assessment and plan: See plan of care listed below. Current Visit: Yes Qualifiers: Cardiac valve disease etiology: nonrheumatic Qualified Code(s): I35.1 - Nonrheumatic aortic (valve) insufficiency (6) Mitral regurgitation Status: Chronic Assessment and plan: See plan of care listed below. Current Visit: Yes Qualifiers: Cardiac valve disease etiology: nonrheumatic Qualified Code(s): I34.0 - Nonrheumatic mitral (valve) insufficiency (7) Refusal of blood transfusions as patient is Hindu Status: Chronic Assessment and plan: See plan of care listed below. Current Visit: Yes Cardiology - PN: Subj Interval history: Jockey'S Agent: Dr. Medley SUMMARY: Ms. Moscoso is a 76 year old female with a history of coronary artery disease, aortic insufficiency, mitral regurgitation, congestive heart failure, diabetes, hyperlipidemia, and hypertension. She is status post non-STEMI with three-vessel CAD (occluded ostial RCA, 70% calcific proximal LAD, 90% proximal circumflex) per left heart catheterization on . She was previously admitted for CHF and NSTEMI and was home for 3 days before returning to the ER with SOB and required intubation. She was discharged from our facility on 04/12/17 to [facility] under the care of Dr. Giovani Monroe. He reviewed all of our studies and he agrees that this is likely moderate valve disease in both the mitral position from the stenosis standpoint and moderate /AI. This is most consistent with her most recent transthoracic echocardiogram on 04/05/17 which revealed an EF of 40-45%, mild LVH, moderate aortic insufficiency, mild mitral insufficiency. She was transferred to our facility from [facility] on 04/24/2017 for further evaluation of shortness of breath. She was intubated in the emergency room and has subsequently been extubated. She is now s/p stenting of the mid LAD with a ANGELA, orbital atherectomy of the proximal circumflex, and stenting of the proximal circumflex with a ANGELA. MAY 05, 2017 UPDATE: Her right groin cath site is doing good. There is no bleeding, hematoma, or bruit at site. She has mild tenderness to palpation but no ecchymosis. Femoral pulse is 3+. Peripheral pulses are present and palpable bilaterally. She is for discharge today. She will need to follow up with Dr. Medley in 1-2 weeks for groin check. She was afebrile yesterday with temperature of 101.1. WBC is normal. Urinalysis was abnormal and sent for culture. She is already on antibiotics with IV Levaquin. I would recommend she continue with PO Levaquin at discharge and follow up with her PCP as the culture results have not returned yet. I reiterated the need for fluid restriction at home. We also discussed post cath precautions. ASSESSMENT/PLAN: 1. CONGESTIVE HEART FAILURE - NYHA Class IV. Recent echocardiogram revealed EF 40-45%. According to her records, her reports that she is noncompliant with fluid restriction at home. Spironolactone 25mg daily was added to her regimen. 2. ACUTE RESPIRATORY FAILURE - She required mechanical ventilation for several days but has subsequently been extubated and is doing well. 3. ANEMIA - H&H currently stable. 4. CHRONIC KIDNEY DISEASE - Will try to avoid nephrotoxic agents. Creatinine 1.3. Creatinine has improved significantly since holding her ARB. 5. CORONARY ARTERY DISEASE - Continue ASA, beta hector, statin. 6. AORTIC INSUFFICIENCY - Echocardiogram was repeated on 04/05/2017 and revealed EF 40-45%, mild LVH, moderate aortic insufficiency, mild mitral insufficiency. She actually seems to have a better ejection fraction now and her valve disease did not seem severe as previously documented. She was transferred to [facility] on 04/12/17 to the care of Dr. Giovani Monroe; however, she was not felt to be a surgical candidate and underwent PCI during this admission. 7. MITRAL REGURGITATION - Echocardiogram was repeated on 04/05/2017 and revealed EF 40-45%, mild LVH, moderate aortic insufficiency, mild mitral insufficiency. She actually seems to have a better ejection fraction now and her valve disease did not seem severe as previously documented. 8. REFUSAL OF BLOOD PRODUCTS/SPIRITISM - I have seen Mrs. Moscoso during her most recent admissions and per prior discussions, it should be noted that Ms. Moscoso is a Hindu and is unwilling to take someone else' s blood in transfusion. She is willing to consider taking a transfusion from her self at a later time. Exam (Progress Note) - Constitutional Vitals: Period Temp Pulse Resp BP Sys/Pina Pulse Ox Last 24 Hr 98.4 F-101.1 F 66-82 16-20 114-126/52-70 92-99 Exam: General: Present: Appears Well, No Apparent Distress. Pleasant and cooperative. Appears comfortable. HEENT: Present: PERRL, Normocephaly, atraumatic. Mucus Membranes Moist. No jaundice noted. Conjunctiva moist and clear, sclerae anicteric Neck: Present: Supple Neck, Midline Trachea, No Masses, No Bruit, No tenderness Cardiac: Present: Regular Rate and Rhythm, Systolic Murmur Lungs: Present: Few Bibasilar rales posteriorly, otherwise Clear to auscultation bilaterally, no wheeze, rhonchi. Neuro: Present: Awake, alert, and oriented x3. Moves all extremities well without hemiparesis or paralysis. Grossly Intact. Absent: Resting Tremor, Essential Tremor Abdomen: Present: Soft, Active Bowel Sounds, No Masses, Non-Tender, nondistended. No abdominal bruit or thrill noted. Skin: Present: Clear. Absent: Rash, No skin breakdown. Back: Normal inspection, no vertebral tenderness. Musculoskeletal: Present: No Fluid Collection, No Pain, Normal Range of Motion Extremities: Present: Normal Gait, No Clubbing, No Cyanosis, Upper Extr. Pulses 2+, Lower Extr. Pulses 2+, 1+ edema to BLE. Capillary refill less than 3 seconds. Result/EKG - Labs CBC & BMP: 05/05/17 03:31 05/04/17 05:04 Lab Results: I have reviewed the past 24 hour labs Labs: Laboratory Results - last 24 hr 05/04/17 05/04/17 05/04/17 15:59 20:11 20:43 WBC RBC Hgb Hct MCV MCH MCHC RDW Plt Count MPV Neut % (Auto) Lymph % (Auto) [place] % (Auto) Eos % (Auto) Baso % (Auto) Neut # (Auto) Lymph # (Auto) [place] # (Auto) Eos # (Auto) Baso # (Auto) Immature Gran % Nucleated RBC % Immature Gran # Nucleated RBCs # POC Glucose 184 H 210 H Total Creatine Kinase CK-MB (CK-2) Troponin I Urine Color Yellow Urine Appearance Slightly hazy Urine pH 5.0 Ur Specific [place] 1.016 Urine Protein 30 Urine Glucose (UA) Negative Urine Ketones Negative Urine Blood Negative Urine Nitrate Negative Urine Bilirubin Negative Urine Urobilinogen < 2.0 H Urine Leukocytes Moderate H Urine RBC 2 Urine WBC 16 Ur Squamous Epith Cells Occasional Hyaline Casts 12 Urine Yeast (Budding) Moderate Ur Culture Indicated? Results to follow 05/05/17 05/05/17 05/05/17 03:31 03:31 07:33 WBC 9.6 RBC 3.18 L Hgb 9.0 L Hct 27.8 L MCV 87.4 MCH 28 MCHC 32.4 RDW 14.6 Plt Count 261 MPV 10.4 Neut % (Auto) 64.0 Lymph % (Auto) 21.5 [place] % (Auto) 7.9 Eos % (Auto) 6.2 Baso % (Auto) 0.1 Neut # (Auto) 6.1 Lymph # (Auto) 2.1 [place] # (Auto) 0.8 Eos # (Auto) 0.6 Baso # (Auto) 0.0 Immature Gran % 0.3 Nucleated RBC % 0.0 Immature Gran # 0.03 Nucleated RBCs # 0.00 POC Glucose 111 H Total Creatine Kinase 128 D CK-MB (CK-2) 3.9 H D Troponin I 5.030 H D Urine Color Urine Appearance Urine pH Ur Specific [place] Urine Protein Urine Glucose (UA) Urine Ketones Urine Blood Urine Nitrate Urine Bilirubin Urine Urobilinogen Urine Leukocytes Urine RBC Urine WBC Ur Squamous Epith Cells Hyaline Casts Urine Yeast (Budding) Ur Culture Indicated? 05/05/17 11:19 WBC RBC Hgb Hct MCV MCH MCHC RDW Plt Count MPV Neut % (Auto) Lymph % (Auto) [place] % (Auto) Eos % (Auto) Baso % (Auto) Neut # (Auto) Lymph # (Auto) [place] # (Auto) Eos # (Auto) Baso # (Auto) Immature Gran % Nucleated RBC % Immature Gran # Nucleated RBCs # POC Glucose 228 H Total Creatine Kinase CK-MB (CK-2) Troponin I Urine Color Urine Appearance Urine pH Ur Specific [place] Urine Protein Urine Glucose (UA) Urine Ketones Urine Blood Urine Nitrate Urine Bilirubin Urine Urobilinogen Urine Leukocytes Urine RBC Urine WBC Ur Squamous Epith Cells Hyaline Casts Urine Yeast (Budding) Ur Culture Indicated? - EKG EKG results: interpreted by me, sinus rhythm Specialty Discharge - Follow Up or Referrals Follow up with: [facility] [Provider Group] - 2 Weeks Arsenio Medley MD [Physician] - 05/11/17 1:30 pm <Arsenio Medley - Last Filed: 05/05/17 12:16> Assessment and Plan (1) CHF (congestive heart failure) Status: Acute Current Visit: Yes Qualifiers: Congestive heart failure type: systolic Congestive heart failure chronicity : acute on chronic Qualified Code(s): I50.23 - Acute on chronic systolic ( congestive) heart failure (2) Mitral regurgitation Status: Chronic Current Visit: Yes Qualifiers: Cardiac valve disease etiology: nonrheumatic Qualified Code(s): I34.0 - Nonrheumatic mitral (valve) insufficiency (3) Aortic stenosis Status: Chronic Current Visit: No (4) Coronary artery disease Status: Chronic Current Visit: No Qualifiers: Coronary Disease-Associated Artery/Lesion type: [place] artery [place] vs. transplanted heart: [place] heart Associated angina: without angina Qualified Code(s): I25.10 - Atherosclerotic heart disease of [place] coronary artery without angina pectoris (5) Pulmonary edema Status: Resolved Current Visit: No Exam (Progress Note) - Constitutional Vitals: Period Temp Pulse Resp BP Sys/Pina Pulse Ox Last 24 Hr 98.4 F-101.1 F 66-82 16-20 114-126/52-70 92-99 Result/EKG - Labs CBC & BMP: 05/05/17 03:31 05/04/17 05:04 Labs: Laboratory Results - last 24 hr 05/04/17 05/04/17 05/04/17 15:59 20:11 20:43 WBC RBC Hgb Hct MCV MCH MCHC RDW Plt Count MPV Neut % (Auto) Lymph % (Auto) [place] % (Auto) Eos % (Auto) Baso % (Auto) Neut # (Auto) Lymph # (Auto) [place] # (Auto) Eos # (Auto) Baso # (Auto) Immature Gran % Nucleated RBC % Immature Gran # Nucleated RBCs # POC Glucose 184 H 210 H Total Creatine Kinase CK-MB (CK-2) Troponin I Urine Color Yellow Urine Appearance Slightly hazy Urine pH 5.0 Ur Specific [place] 1.016 Urine Protein 30 Urine Glucose (UA) Negative Urine Ketones Negative Urine Blood Negative Urine Nitrate Negative Urine Bilirubin Negative Urine Urobilinogen < 2.0 H Urine Leukocytes Moderate H Urine RBC 2 Urine WBC 16 Ur Squamous Epith Cells Occasional Hyaline Casts 12 Urine Yeast (Budding) Moderate Ur Culture Indicated? Results to follow 05/05/17 05/05/17 05/05/17 03:31 03:31 07:33 WBC 9.6 RBC 3.18 L Hgb 9.0 L Hct 27.8 L MCV 87.4 MCH 28 MCHC 32.4 RDW 14.6 Plt Count 261 MPV 10.4 Neut % (Auto) 64.0 Lymph % (Auto) 21.5 [place] % (Auto) 7.9 Eos % (Auto) 6.2 Baso % (Auto) 0.1 Neut # (Auto) 6.1 Lymph # (Auto) 2.1 [place] # (Auto) 0.8 Eos # (Auto) 0.6 Baso # (Auto) 0.0 Immature Gran % 0.3 Nucleated RBC % 0.0 Immature Gran # 0.03 Nucleated RBCs # 0.00 POC Glucose 111 H Total Creatine Kinase 128 D CK-MB (CK-2) 3.9 H D Troponin I 5.030 H D Urine Color Urine Appearance Urine pH Ur Specific [place] Urine Protein Urine Glucose (UA) Urine Ketones Urine Blood Urine Nitrate Urine Bilirubin Urine Urobilinogen Urine Leukocytes Urine RBC Urine WBC Ur Squamous Epith Cells Hyaline Casts Urine Yeast (Budding) Ur Culture Indicated? 05/05/17 11:19 WBC RBC Hgb Hct MCV MCH MCHC RDW Plt Count MPV Neut % (Auto) Lymph % (Auto) [place] % (Auto) Eos % (Auto) Baso % (Auto) Neut # (Auto) Lymph # (Auto) [place] # (Auto) Eos # (Auto) Baso # (Auto) Immature Gran % Nucleated RBC % Immature Gran # Nucleated RBCs # POC Glucose 228 H Total Creatine Kinase CK-MB (CK-2) Troponin I Urine Color Urine Appearance Urine pH Ur Specific [place] Urine Protein Urine Glucose (UA) Urine Ketones Urine Blood Urine Nitrate Urine Bilirubin Urine Urobilinogen Urine Leukocytes Urine RBC Urine WBC Ur Squamous Epith Cells Hyaline Casts Urine Yeast (Budding) Ur Culture Indicated?
== END 2017-05-05 13:17 | disposition home health service (06) | DRG 981 ==
LOC: N.ED 08:12 → SUATTDRO 10:32 → N.EDINP 10:32 → N.ICU 11:16 → N.TELEN 05-01 10:31
PROVIDERS: ADMIT Internal Medicine; ATTEND Internal Medicine

== ENCOUNTER 2017-05-05 21:16 | Inpatient (IN) ==
[2017-05-05] MEDS ORDERED: FUROSEMIDE 40 MG/4 ML VIAL ONE (21:39)
[2017-05-05] MEDS ORDERED: FUROSEMIDE 40 MG/4 ML VIAL IV STA (21:46)
[2017-05-05 22:31] LABS: Basophils % 0.2 % (0.0-0.8); Eosinophils # 0.5 10*3/uL (0.0-0.87); Eosinophils % 3.2 % (0.00-10.9); Hemoglobin 10.6 GM/DL (12.0-16.0); Immature Granulocytes % 0.7 %; Immature Granulocytes Absolute 0.11 #; Lymphocytes # 1.5 10*3/uL (1.4-4.0); Lymphocytes % 8.8 % (21.3-54.2); Mean Corpuscular HGB Conc 32.1 GM/DL (32-36); Mean Corpuscular Hemoglobin 28 PG (27-34); Mean Platelet Volume 9.9 FL (9.6-12.0); Monocytes # 0.6 10*3/uL (0.11-0.8); Monocytes % 3.8 % (1.7-12.7); Neutrophils # 13.8 10*3/uL (1.4-7.4); Neutrophils % 83.3 % (38.7-73.9); Platelet Count 341 T/CUMM (130-400); Red Blood Count 3.75 MC/CUMM (3.8-5.5); Red Cell Distribution Width 14.7 % (9.3-17.3); White Blood Count 16.5 T/CUMM (4-12)
--- NOTE | 2017-05-05 22:35 | Emergency Department Note ---
Arrival - Arrival Chief Complaint: Shortness of Breath ED Nursing Triage Note: Pt arrives via ems with complaints of sob and chest pain that started today under left breast after eating. Pt was discharged today from hospital after receiving 2 stents on Monday. Pt is noted to have + 4 edema to lower ext with weeping noted. Mode of Arrival: Stretcher Limitations: Physical Limitation (Dyspnea, on CPAP) Source: Patient, Family Time Seen by Provider: 05/05/17 21:50 - History of Present Illness HPI Narrative: Patient and family complain of rapid onset of shortness of breath after supper tonight. She denies chest pain, nausea, vomiting or diaphoresis. This patient was just discharged from the hospital today after admission for respiratory failure due to CHF. She spent several days on the ventilator and subsequently had a LAD stent placed by Dr. Medley. The patient has multiple admissions for respiratory failure and multiple intubations. She has a history of aortic and mitral insufficiency but is not a candidate for surgery. Date of Last Menstrual Period: Hyster Allergies/Adverse Reactions: Allergies Allergy/AdvReac Type Severity Reaction Status Date / Time No Known Allergies Allergy Unverified 03/17/17 14:59 Home Medications: Home Medications Medication Instructions Recorded Confirmed Type Ofloxacin 0.3% Oph Soln [Ocuflox 1 drop LEFT EYE QID 03/17/17 04/26/17 History 0.3% Oph Soln] Polyvinyl Alcohol [Artificial 1 ml BOTH EYES QID PRN 03/17/17 04/26/17 History Tears] Atorvastatin [Lipitor] 80 mg PO BEDTIME #60 tablet 04/01/17 04/26/17 Rx Carvedilol [Coreg] 12.5 mg PO BID #120 tablet 04/01/17 04/26/17 Rx glyBURIDE [Diabeta] 2.5 mg PO BID W/MEALS tablet 04/12/17 04/26/17 Rx Clopidogrel [Plavix] 75 mg PO DAILY 04/26/17 04/26/17 History Isosorbide Mononitrate [Imdur] 30 mg PO DAILY 04/26/17 04/26/17 History Multivit,Iron,Mins/Folic Acid 1 each PO DAILY 04/26/17 04/26/17 History [[facility] Heart Tab] Sitagliptin Phosphate [Januvia] 50 mg PO BEDTIME 04/26/17 04/26/17 History Ampicillin Cap 500 mg PO BID #10 capsule 05/05/17 Rx Aspirin Chew Tab 81 mg PO DAILY tablet 05/05/17 Rx Furosemide Tab [Lasix Tab] 40 mg PO BID #60 05/05/17 Rx Losartan [Cozaar] 100 mg PO DAILY #0 05/05/17 04/26/17 Rx Pantoprazole Tab [Protonix Tab] 40 mg PO DAILY #30 tablet 05/05/17 Rx Review of System - Review of System ROS unobtainable: other (Dyspnea) Medical,Surgical,& Family Hx - Medical History Cardio: History of: CHF, CAD (PCI 10/19/2011), Hypertension, [place], PVD (Peripheral Stent x2.), Valvular Heart Disease Neurology: No history of: Cerebrovascular Accident Endocrine: History of: Diabetes Mellitus (NIDDM) Respiratory: No history of: Asthma, COPD, Pulmonary Embolism Gastrointestinal: No history of: GERD Musculoskeletal: History of: Back/Neck Problems (1971) Other: No history of: Cancer - Surgical History Cardiac Surgeries: Sugical HX of: Cardiac Catheterization (2 stents to the RCA and one stent to the left circumflex on October 19, 2011) HEENT Surgeries: Patient denies: Tonsilectomy & Adenoidectomy Abdominal Surgeries: Patient denies: Abdominal Surgery Reproductive Surgeries: Surgical HX of;: Gynecologic Surgery, Hysterectomy Orthopedic Surgeries: Patient denies;: Orthopedic Surgery - Family History Family History: Reports;: Family Cancer (Brother (leukemia)), Family Heart Disease, Family Hypertension, Family Stroke - Social History Smoking Status: Never smoker Frequency of Alcohol Use: None Type of Drug Use: None Exam Physical Examination: GENERAL: Alert. Moderate respiratory distress. On CPAP. Sats 98%. HEENT: Normocephalic and atraumatic. There is no nasal drainage. NECK: Normal inspection. Supple. No lymphadenopathy or meningismus. LUNGS: Positive respiratory distress. Poor air movement. Rales bilaterally. HEART: Regular rate and rhythm with 2/6 diastolic murmur. ABDOMEN: Soft, nontender and nondistended with normoactive bowel sounds. BACK: Normal inspection. SKIN: Color normal. Warm and dry. EXTREMITIES: Nontender. Normal range of motion. Pitting edema to the knees bilaterally. NEUROLOGICAL/PSYCHIATRIC: Alert and oriented -3 with normal mood and affect. Cranial nerves normal. No motor or sensory deficit. Vital Signs: Vital Signs Temperature 98.1 F 05/05/17 21:16 Pulse Rate 101 H 05/05/17 21:16 Respiratory Rate 12 05/05/17 23:46 Blood Pressure 153/85 05/05/17 21:16 O2 Sat by Pulse Oximetry 99 05/05/17 21:16 Course - Reevaluation(s) Reevaluation #1: I discussed the patient with Dr. Medley. Lab work is still pending. He recommends Lasix. I will admit to the hospitalist if her cardiac enzymes are okay. Time: 22:37 Reevaluation #2: Cardiac enzymes are still pending. Patient is not improving fast enough and she looks to be tiring. Her heart rate remains around 105 and she is having some bigeminy as well. Blood gases show her to be acidotic with elevated CO2 and decreased PO2. She needs intubation and ventilator support. I have discussed this with her and she agrees. Time: 23:20 Reevaluation #3: Still awaiting results of troponin and CK-MB. Time: 00:07 Additional Reevaluation(s): Troponin came back at 5.04. This is unchanged from the 5.03 done at 4:00 this morning. I discussed the patient with Dr. Regan again. He feels like the problem is CHF. I discussed patient with the hospitalist service who will see her and admit. Procedures - Intubation Time out performed: Yes sedative: Etomidate Mg Given: 20 paralytic: Succinylcholine Mg Given: 150 Laryngoscope: Astrid ET Tube Size: 7 ET Tube Uncuffed: No Tube Secured Depth (cm): 20 Tube Secured Location: teeth Tube Placement Confirmation: visualized tube passing through cords, equal breath sounds bilaterally, no breath sounds over epigastrium, confirmation detector color change Patient Tolerated Procedure: well Intubation Complications: none Additional Comments: Postintubation chest x-ray showed the ET tube well positioned just above the natalia. Results - Labs CBC & BMP: 05/05/17 21:40 05/05/17 Unknown Lab Results: I have reviewed the patients labs Labs: Laboratory Tests 05/05/17 05/05/17 05/05/17 21:40 21:40 21:50 INR 1.1 D-Dimer, Quantitative 4.7 ABG pH ABG pCO2 ABG pO2 ABG HCO3 ABG Total CO2 ABG O2 Saturation Total Bilirubin AST ALT Alkaline Phosphatase Total Creatine Kinase CK-MB (CK-2) CK and CKMB Interp Troponin I B-Natriuretic Peptide > 5000 H Ur Specific [place] 1.006 Urine Leukocytes Negative Urine RBC 1 Urine WBC 1 05/05/17 05/05/17 22:44 Unknown INR D-Dimer, Quantitative ABG pH 7.319 L ABG pCO2 52.3 H ABG pO2 75.0 L ABG HCO3 24.4 ABG Total CO2 24.5 ABG O2 Saturation 92.8 L Total Bilirubin 0.40 AST 90 H ALT 76 H Alkaline Phosphatase 456 H Total Creatine Kinase 167 D CK-MB (CK-2) 6.1 H CK and CKMB Interp 3.7 Troponin I 5.040 H B-Natriuretic Peptide Ur Specific [place] Urine Leukocytes Urine RBC Urine WBC - Impressions Chest x-ray shows CHF and a left pleural effusion. EKG shows a sinus tachycardia at 101 with an indeterminate axis. Critical Care Time Total Critical Care Time: 90 Disposition Clinical Impression: Congestive heart failure, Acute respiratory failure, Mitral regurgitation, Aortic insufficiency Case discussed with: patient, patient's family Disposition: Still a Patient Condition: Critical
[2017-05-05] MEDS ORDERED: cefTRIAXone 1,000 MG in SODIUM CHLORIDE 0.9% 100 ML IV STA (22:46)
[2017-05-05 22:47] LABS: ABG Base Excess 0.1 MMOL/L (-2.5-2.5); ABG HCO3 24.4 MMOL/L (20-26); ABG Oxygen Saturation 92.8 % (95-100); ABG PCO2 52.3 MM HG (35-48); ABG PH 7.319 (7.35-7.45); ABG TCO2 24.5 MMOL/L (23-27); Allen Test Positive; Pt O2 Delivery Device CPAP
[2017-05-05 22:51] LABS: D-Dimer 4.7 MG/L FEU; INR 1.1; PT Patient Result 11.8 SECS; Partial Thromboplastin Time 26.3 SECS (0-40)
[2017-05-05 23:04] LABS: Apearance,Urine CLOUDY (Clear); Bacteria,Urine Occasional /HPF (Few); Bilirubin,Urine Negative (Negative); Blood, Urine Small mg/dL (Negative); Glucose,Urine (UA) Negative (Negative); Ketones,Urine Negative (Negative); Nitrite,Urine Negative (Negative); Protein,Urine Negative; RBC,Urine 1 /HPF (0-4); Squamous Epithelial Cell,Urine Occasional /HPF (0-10); Urine Color Yellow (Yellow); Urine Specific Gravity 1.006 (1.001-1.035); Urine Urobilinogen < 2.0 EU/DL (0.2-1.0); WBC,Urine 1 /HPF (0-6)
[2017-05-05] MEDS ORDERED: cefTRIAXone 1,000 MG VIAL ONE (23:21)
[2017-05-05 23:55] LABS: Calcium 9.6 MG/DL (8.5-10.1)
[2017-05-05 23:56] LABS: Bilirubin,Total 0.4 MG/DL (0.2-1.0); Magnesium 2.4 MG/DL (1.8-2.4); Osmolality,Calculated 295.3 MOS/KG (273-304); Potassium 5.1 MMOL/L (3.5-5.1); Total Protein 7.9 G/DL (6.4-8.3)
[2017-05-06 00:06] LABS: ABG Base Excess -0.2 MMOL/L (-2.5-2.5); ABG HCO3 25.9 MMOL/L (20-26); ABG Oxygen Saturation 99.4 % (95-100); ABG PCO2 48.7 MM HG (35-48); ABG PH 7.344 (7.35-7.45); ABG PO2 363.4 MM HG (80-95); ABG TCO2 27.4 MMOL/L (23-27); Allen Test Positive; Pt O2 Delivery Device Ventilator
[2017-05-06] MEDS ORDERED: PROPOFOL 1,000 MG/100 ML BOTTLE IV ONE (00:07)
[2017-05-06 00:16] LABS: CKMB % 3.7 %
[2017-05-06 00:17] LABS: Troponin I Only 5.04 NG/ML (0.00-0.045)
--- NOTE | 2017-05-06 00:49 | Hospitalist History & Physical ---
Assessment and Plan (1) Acute respiratory failure Status: Acute Assessment and plan: Admit to the hospital under service of the hospitalist. Given the patient's physical exam and laboratory findings at time of it inspect the patient require 2 midnight inpatient stay. Acute on chronic respiratory failure is likely related to underlying congestive heart failure. Continue mechanical ventilation with a pulmonary consult in the a.m. Repeat ABGs in a.m. propofol for sedation. Head of bed up 30. NG tube to low intermittent wall suction. DVT prophylaxis of Lovenox 30 mg subcu daily. Peptic ulcer disease prevention Protonix 40 mg IV daily Current Visit: Yes Qualifiers: Respiratory failure complication: hypercapnia Qualified Code(s): J96.02 - Acute respiratory failure with hypercapnia (2) CHF (congestive heart failure) Status: Acute Assessment and plan: CHF stage IV. Patient received 80 mg IV Lasix in ED. Continue Lasix 40 mg IV twice daily. Monitor kidney function during treatment. Fluid restriction Current Visit: Yes Qualifiers: Congestive heart failure type: systolic Congestive heart failure chronicity : acute on chronic Qualified Code(s): I50.23 - Acute on chronic systolic ( congestive) heart failure (3) Elevated troponin Status: Acute Assessment and plan: Unchanged from previous draw this a.m. Likely due to previous stenting done on Monday. Repeat in a.m. Current Visit: No (4) Chronic kidney disease (CKD) Status: Chronic Assessment and plan: Avoid nephrotoxic medication as much as possible. Monitor daily while on IV diuretic therapy. Patient may benefit from outpatient nephrology consult. Current Visit: No Qualifiers: Chronic kidney disease stage: stage 3 (moderate) Qualified Code(s): N18.3 - Chronic kidney disease, stage 3 (moderate) (5) Diabetes mellitus Status: Chronic Assessment and plan: Accu-Cheks every 6 while n.p.o. and change to before meals and at bedtime once on a diet. Supplemental sliding scale. Current Visit: No Qualifiers: Diabetes mellitus type: type 2 Diabetes mellitus complication status: with unspecified complications Diabetes mellitus skilled nursing insulin use: without terminal operator use Qualified Code(s): E11.8 - Type 2 diabetes mellitus with unspecified complications History of Present Illness Chief complaint: Shortness of breath History of present illness: Ms. Moscoso is a 76 year old female with a past medical history of diabetes, congestive heart failure stage IV, [place], hypertension, acute respiratory failure requiring intubation, stents 2 approximately 4 days ago, & CAD presents to the ED tonight with chief complaint of shortness of breath. Patient is currently intubated during the time interview and information of this H&P is obtained from the medical record and the at the bedside. Patient was discharged approximately noon today following acute on chronic congestive heart failure, respiratory failure status post stent placement. He reports she was doing fine and was eating fried chicken and became acutely short of breath this p.m. EMS was activated and she was brought in on CPAP. Initial ABG performed on CPAP included pH 7.319, CO2 32.3, PO2 75, base excess 0.1 with bicarbonate 24.4. Other labs included a creatinine of 1.96, BUN 40, glucose 197, AST 90, ALT 76, alkaline phosphate 456, proBNP greater than 5000, troponin V 0.040, CK-MB 6.1, benign UA, WBC 16.5, H&H 1610.6/33 INR 1.1. The ER physician spoke with Dr. Regan with cardiology and he feels as an acute exacerbation of her CHF. During her time in the ED the patient was given 1 g Rocephin for elevated WBCs of 16.5. She is also given 80 mg of Lasix IV. He subsequently end up requiring endotracheal intubation. Postintubation gas reveals a pH 7.344, PO2 363, PCO2 48.7, bicarb 25.9, base excess -0.2. Her FiO2 was then decreased down to 60% with a rate of 12. She will be admitted to the hospitalist service for further evaluation and treatment. Home Medications Medication Instructions Recorded Confirmed Type Ofloxacin 0.3% Oph Soln [Ocuflox 1 drop LEFT EYE QID 03/17/17 05/06/17 History 0.3% Oph Soln] Polyvinyl Alcohol [Artificial 1 ml BOTH EYES QID PRN 03/17/17 05/06/17 History Tears] Atorvastatin [Lipitor] 80 mg PO BEDTIME #60 tablet 04/01/17 05/06/17 Rx Carvedilol [Coreg] 12.5 mg PO BID #120 tablet 04/01/17 05/06/17 Rx glyBURIDE [Diabeta] 2.5 mg PO BID W/MEALS tablet 04/12/17 05/06/17 Rx Clopidogrel [Plavix] 75 mg PO DAILY 04/26/17 05/06/17 History Isosorbide Mononitrate [Imdur] 30 mg PO DAILY 04/26/17 05/06/17 History Multivit,Iron,Mins/Folic Acid 1 each PO DAILY 04/26/17 05/06/17 History [[facility] Heart Tab] Sitagliptin Phosphate [Januvia] 50 mg PO BEDTIME 04/26/17 05/06/17 History Ampicillin Cap 500 mg PO BID #10 capsule 05/05/17 05/06/17 Rx Aspirin Chew Tab 81 mg PO DAILY tablet 05/05/17 05/06/17 Rx Furosemide Tab [Lasix Tab] 40 mg PO BID #60 05/05/17 05/06/17 Rx Losartan [Cozaar] 100 mg PO DAILY #0 05/05/17 05/06/17 Rx Pantoprazole Tab [Protonix Tab] 40 mg PO DAILY #30 tablet 05/05/17 05/06/17 Rx Allergies Allergy/AdvReac Type Severity Reaction Status Date / Time No Known Allergies Allergy Unverified 03/17/17 14:59 Medical,Surgical,& Family Hx - Medical History Cardio: History of: CHF, CAD (PCI 10/19/2011 & 05/03/2017), Hypertension, [place], PVD ( Peripheral Stent x2.), Valvular Heart Disease (aortic and mitral insufficiency ) Endocrine: History of: Diabetes Mellitus (NIDDM) Respiratory: History of: Intubation (04/2017) Renal: History of: Renal Failure (CKD Stage III) Musculoskeletal: History of: Back/Neck Problems (1971) - Surgical History Cardiac Surgeries: Sugical HX of: Cardiac Catheterization (2 stents to the RCA and one stent to the left circumflex on October 19, 2011) Reproductive Surgeries: Surgical HX of;: Gynecologic Surgery, Hysterectomy - Family History Family History: Reports;: Family Cancer (Brother (leukemia)), Family Heart Disease, Family Hypertension, Family Stroke - Social History Smoking Status: Never smoker Frequency of Alcohol Use: None Type of Drug Use: None Marital Status: Lives With:: Spouse ROS unobtainable: due to endotracheal tube Exam - Constitutional Vitals: Period Temp Pulse Resp BP Sys/Pina Pulse Ox Last 24 Hr 98.1 F-98.1 F 101-101 12-33 153-153/85-85 99 General appearance: morbidly obese - Head Head exam: Present: normal inspection - Eye Pupils: Present: WESLY - ENT ENT exam: Present: normal exam - Neck Neck exam: Present: normal inspection - Respiratory Respiratory exam: Present: rhonchi, other (ET tube to vent) - Cardiovascular Cardiovascular exam: Present: systolic murmur, tachycardia - Expanded Cardiovascular Exam Peripheral pulses: 1+: dorsalis pedis (L), dorsalis pedis (R) - GI/Abdominal GI/Abdominal exam: Present: normal bowel sounds, other (NG in place) - Extremities Exam Extremities exam: Present: edema (4+) - Neurological Exam Neurological exam: Present: other (sedated on propofol ) - Skin Skin exam: Present: normal color Results - Labs CBC & BMP: 05/05/17 21:40 05/05/17 Unknown Lab Results: I have reviewed the past 24 hour labs - EKG EKG results: interpreted by FLAVIA - Diagnostic Findings Procedure: Chest x-ray: image reviewed by me
[2017-05-06] MEDS ORDERED: ENOXAPARIN 30 MG/0.3 ML SYRINGE SUBCUT SCH (01:37)
[2017-05-06] MEDS ORDERED: ALBUTEROL 2.5 MG/3 ML NEB RESP TX PRN (01:37)
[2017-05-06] MEDS: PANTOPRAZOLE 40 MG VIAL IV SCH (01:45)
[2017-05-06] MEDS: PROPOFOL 1,000 MG/100 ML BOTTLE IV SCH ×5 (01:45→23:45)
[2017-05-06] MEDS ORDERED: hydrALAZINE 20 MG/1 ML VIAL IV PRN (01:57)
--- NOTE | 2017-05-06 02:04 | EKG Report ---
Stationary ECG Study [facility] ER Test Date: 05/05/2017 9:25:59 PM Pat Name: THADDEUS AN Department: Room: 110 Gender: F Medical Insurance Biller: : [id number] Requested by: Abram Jay Order Number: [id number] Reading MD: KIMBERLEE JIMENEZ Intervals [place] Rate: 101 P: 23 KS: 178 QRS: 111 QRSD: 95 T: -27 QT: 331 QTc: 389 Interpretive Statements SINUS TACHYCARDIA INDETERMINATE AXIS POSSIBLE ANTERIOR MYOCARDIAL INFARCTION, OF INDETERMINATE AGE Electronically Signed On 05-08-17 17:57:30 CDT by KIMBERLEE JIMENEZ [email or web address]
[2017-05-06] MEDS ORDERED: SUCCINYLCHOLINE 200 MG/10 ML VIAL ONE (02:31)
[2017-05-06] MEDS ORDERED: ETOMIDATE 20 MG/10 ML VIAL IV ONE (02:31)
[2017-05-06] MEDS: INSULIN REGULAR 100 UNIT/ML SUBCUT SCH ×4 (05:34→23:31)
[2017-05-06 06:14] LABS: Basophils % 0.1 % (0.0-0.8); Eosinophils # 0.1 10*3/uL (0.0-0.87); Eosinophils % 1.2 % (0.00-10.9); Hematocrit 29.5 VOL% (35.7-47.0); Hemoglobin 9.5 GM/DL (12.0-16.0); Immature Granulocytes % 0.3 %; Immature Granulocytes Absolute 0.03 #; Lymphocytes # 1.8 10*3/uL (1.4-4.0); Lymphocytes % 17.9 % (21.3-54.2); Mean Corpuscular HGB Conc 32.2 GM/DL (32-36); Mean Corpuscular Hemoglobin 28 PG (27-34); Mean Corpuscular Volume 86.3 FL (87-102); Mean Platelet Volume 10.3 FL (9.6-12.0); Monocytes # 0.7 10*3/uL (0.11-0.8); Monocytes % 7.1 % (1.7-12.7); Neutrophils # 7.3 10*3/uL (1.4-7.4); Neutrophils % 73.4 % (38.7-73.9); Platelet Count 300 T/CUMM (130-400); Red Blood Count 3.42 MC/CUMM (3.8-5.5); Red Cell Distribution Width 14.6 % (9.3-17.3); White Blood Count 9.9 T/CUMM (4-12)
[2017-05-06 06:46] LABS: CKMB % 5.6 %
[2017-05-06 06:48] LABS: Troponin I Only 7.95 NG/ML (0.00-0.045)
[2017-05-06 06:51] LABS: Albumin 2.1 G/DL (3.4-5.0); Bilirubin,Total 0.8 MG/DL (0.2-1.0); Calcium 8.8 MG/DL (8.5-10.1); Osmolality,Calculated 299.8 MOS/KG (273-304); Potassium 4.2 MMOL/L (3.5-5.1); Total Protein 5.8 G/DL (6.4-8.3)
[2017-05-06] MEDS ORDERED: FUROSEMIDE 40 MG/4 ML VIAL IV ONE (07:00)
[2017-05-06] MEDS ORDERED: NITROGLYCERIN DRIP 50 MG/250 ML BOTTLE IV ONE (07:01)
[2017-05-06] MEDS ORDERED: ENOXAPARIN 40 MG/0.4 ML SYRINGE SUBCUT ONE (07:03)
[2017-05-06] MEDS: NITROGLYCERIN DRIP 50 MG/250 ML BOTTLE IV SCH (07:15)
--- NOTE | 2017-05-06 07:25 | Pulmonology Consult Note ---
Assessment and Plan (1) Aortic stenosis Status: Chronic Assessment and plan: The patient has significant valvular heart disease and is doing poorly now. Her outlook is very poor Current Visit: No (2) Chronic kidney disease (CKD) Status: Chronic Assessment and plan: Patient's creatinine is 1.9. Current Visit: No Qualifiers: Chronic kidney disease stage: stage 3 (moderate) Qualified Code(s): N18.3 - Chronic kidney disease, stage 3 (moderate) (3) Diabetes mellitus Status: Chronic Assessment and plan: Her glucose is 152. Current Visit: No Qualifiers: Diabetes mellitus type: type 2 Diabetes mellitus complication status: with unspecified complications Diabetes mellitus terminal operator insulin use: without terminal operator use Qualified Code(s): E11.8 - Type 2 diabetes mellitus with unspecified complications (4) Acute respiratory failure Status: Acute Assessment and plan: Patient went into pulmonary edema and is back on the ventilator. Current Visit: Yes Qualifiers: Respiratory failure complication: hypercapnia Qualified Code(s): J96.02 - Acute respiratory failure with hypercapnia (5) CHF (congestive heart failure) Status: Acute Assessment and plan: The patient goes into heart failure quite easily. Without the valvular replacement her outlook is poor. Current Visit: Yes Qualifiers: Congestive heart failure type: systolic Congestive heart failure chronicity : acute on chronic Qualified Code(s): I50.23 - Acute on chronic systolic ( congestive) heart failure History of Present Illness Chief complaint: Ventilator management History of present illness: Ms. Moscoso is a 76 year old female that has been in frequently last several months. She has been on and off the ventilator with congestive heart failure. She has significant aortic stenosis along with mitral insufficiency. She had just gone home and came right back with respiratory distress. Her chest x-ray looks like pulmonary edema again. She apparently is a [employer] and will not take blood. She does have hypertension and diabetes. She is stable on the ventilator at present. She also has a component of chronic renal insufficiency. Home Medications Medication Instructions Recorded Confirmed Type Ofloxacin 0.3% Oph Soln [Ocuflox 1 drop LEFT EYE QID 03/17/17 05/06/17 History 0.3% Oph Soln] Polyvinyl Alcohol [Artificial 1 ml BOTH EYES QID PRN 03/17/17 05/06/17 History Tears] Atorvastatin [Lipitor] 80 mg PO BEDTIME #60 tablet 04/01/17 05/06/17 Rx Carvedilol [Coreg] 12.5 mg PO BID #120 tablet 04/01/17 05/06/17 Rx glyBURIDE [Diabeta] 2.5 mg PO BID W/MEALS tablet 04/12/17 05/06/17 Rx Clopidogrel [Plavix] 75 mg PO DAILY 04/26/17 05/06/17 History Isosorbide Mononitrate [Imdur] 30 mg PO DAILY 04/26/17 05/06/17 History Multivit,Iron,Mins/Folic Acid 1 each PO DAILY 04/26/17 05/06/17 History [[facility] Heart Tab] Sitagliptin Phosphate [Januvia] 50 mg PO BEDTIME 04/26/17 05/06/17 History Ampicillin Cap 500 mg PO BID #10 capsule 05/05/17 05/06/17 Rx Aspirin Chew Tab 81 mg PO DAILY tablet 05/05/17 05/06/17 Rx Furosemide Tab [Lasix Tab] 40 mg PO BID #60 05/05/17 05/06/17 Rx Losartan [Cozaar] 100 mg PO DAILY #0 05/05/17 05/06/17 Rx Pantoprazole Tab [Protonix Tab] 40 mg PO DAILY #30 tablet 05/05/17 05/06/17 Rx Allergies Allergy/AdvReac Type Severity Reaction Status Date / Time No Known Allergies Allergy Unverified 03/17/17 14:59 ROS unobtainable: due to endotracheal tube (She is unable to give any past history.) Exam (Pulmonay) H&P - Constitutional Vitals: Period Temp Pulse Resp BP Sys/Pina Pulse Ox Last 24 Hr 98.1 F-98.5 F 61-101 12-33 104-178/54-100 99-100 General appearance: no acute distress (She is sedated on the ventilator and comfortable), over weight - Head Head exam: Present: normal inspection, normocephalic - Eye Eye exam: Present: EOMI. Absent: scleral icterus Pupils: Present: WESLY - ENT ENT exam: Present: other (ET tube is in good position.) - Neck Neck exam: Present: normal inspection. Absent: lymphadenopathy, thyromegaly - Respiratory Respiratory exam: Present: rales, rhonchi, other (She has good breath sounds bilaterally with bilateral rales.) - Cardiovascular Cardiovascular exam: Present: gallop, regular rate and rhythm, systolic murmur ( She does have a loud systolic murmur.), tachycardia - GI/Abdominal GI/Abdominal exam: Present: normal bowel sounds, soft. Absent: organomegaly, tenderness - Extremities Exam Extremities exam: Present: edema (She does have swelling of her lower extremities.). Absent: calf tenderness - Neurological Exam Neurological exam: Present: other (Patient is sedated at present.) - Psychiatric Psychiatric exam: Absent: anxious - Skin Skin exam: Present: warm, dry Medical,Surgical,& Family Hx - Medical History Cardio: History of: CHF, CAD (PCI 10/19/2011 & 05/03/2017), Hypertension, [place], PVD ( Peripheral Stent x2.), Valvular Heart Disease (aortic and mitral insufficiency ) No history of: Pacemaker Neurology: No history of: Cerebrovascular Accident Endocrine: History of: Diabetes Mellitus (NIDDM) Respiratory: History of: Intubation (04/2017) No history of: Asthma, COPD, Pulmonary Embolism Renal: History of: Renal Failure (CKD Stage III) Gastrointestinal: No history of: GERD Musculoskeletal: History of: Back/Neck Problems (1971) Other: No history of: Cancer - Surgical History Cardiac Surgeries: Sugical HX of: Cardiac Catheterization (2 stents to the RCA and one stent to the left circumflex on October 19, 2011) HEENT Surgeries: Patient denies: Tonsilectomy & Adenoidectomy Abdominal Surgeries: Patient denies: Abdominal Surgery Reproductive Surgeries: Surgical HX of;: Gynecologic Surgery, Hysterectomy Orthopedic Surgeries: Patient denies;: Orthopedic Surgery - Family History Family History: Reports;: Family Cancer (Brother (leukemia)), Family Heart Disease, Family Hypertension, Family Stroke - Social History Smoking Status: Never smoker Frequency of Alcohol Use: None Type of Drug Use: None Results - Labs CBC & BMP: 05/06/17 05:19 05/06/17 05:19 Labs: Her PO2 is 363 with a PCO2 of 48 and a pH of 7.34 - Diagnostic Findings Procedure: Chest x-ray: image reviewed by me, report reviewed by me (Chest x- ray shows cardiomegaly and CHF.)
[2017-05-06] MEDS ORDERED: NITROPRUSSIDE 100 MG in DEXTROSE 5% 250 ML IV SCH (07:30)
--- NOTE | 2017-05-06 08:06 | XRay Report ---
XR chest 1V portable Indication: Intubation Comparison: 05 May 2017 at 9:53 PM Findings: The heart and mediastinum are stable in size and configuration. Endotracheal tube is been placed with tip to chronic clavicles. Congestive heart failure findings are similar to previous.. Impression: Endotracheal tube position appears within normal limits. PROCEDURE INTERPRETED AT [facility] DEPARTMENT OF RADIOLOGY Final Report Signed by: Dr. Carlos Coronel
--- NOTE | 2017-05-06 08:06 | XRay Report ---
XR chest 1V portable Indication: Dyspnea Comparison: 05 May 2017 at 6:28 AM Findings: The heart and mediastinum are stable in size and configuration. The pulmonary vascularity is increased with bilateral increased interstitial lung density. No other lung infiltrates, effusions, pneumothorax or other abnormality is demonstrated. Impression: Findings suggest increasing cardiac decompensation. PROCEDURE INTERPRETED AT [facility] DEPARTMENT OF RADIOLOGY Final Report Signed by: Dr. Carlos Coronel
--- NOTE | 2017-05-06 09:05 | Cardiology Consult Note ---
Assessment and Plan (1) Aortic insufficiency Status: Chronic Assessment and plan: 1. 76-year-old BF well known to me who is admitted with non-STEMI and heart failure early March 2017 complicated by mildly reduced LV function and severely calcified three-vessel coronary artery disease as well as valvular heart disease (probably moderate mitral stenosis and MR as well as moderate to severe aortic stenosis/AR), who is not a surgical candidate due her conviction against taking blood transfusion, status post atherectomy and stenting of her significant mid LAD and proximal circumflex lesions 3 days ago discharge yesterday but returned yesterday evening with pulmonary edema requiring intubation again. This is a third time she is coming with pulmonary edema requiring intubation the first time was for 9 days and the last time was for 2 days. 2. Continue aggressive IV diuresis. She has some hypertension and heart failure should be held by intravenous nitroglycerin so I am starting that. 3. Creatinine is slightly less than earlier in the week, but probably a bit above baseline at 1.9; I am adding spironolactone 25mg to treat her heart failure/mild cardiomyopathy but we will need to watch her potassium and renal function closely 4. She was previously transferred to [facility] where she was evaluated and felt to have nonsignificant valvular disease "moderate"; however given her clinical history I suspect that her aortic valvular disease is significant. If she is able to get off the ventilator, I will revisit this with them or send her elsewhere for evaluation for SIVAN. Current Visit: Yes Qualifiers: Cardiac valve disease etiology: nonrheumatic Qualified Code(s): I35.1 - Nonrheumatic aortic (valve) insufficiency (2) Mitral regurgitation Status: Chronic Current Visit: Yes Qualifiers: Cardiac valve disease etiology: nonrheumatic Qualified Code(s): I34.0 - Nonrheumatic mitral (valve) insufficiency (3) Anemia Status: Chronic Current Visit: No (4) Essential hypertension Status: Chronic Current Visit: No (5) Refusal of blood transfusions as patient is Mormon Status: Chronic Current Visit: No History of Present Illness - Consult Narrative History of present illness: Ms. Moscoso is a 76 year old female who is currently sedated and intubated. She was discharged yesterday from the hospital and reportedly ate some fried chicken and was having chest pain and shortness of breath for which she was taken back to the hospital and was found to have respiratory embarrassment with pulmonary edema and required intubation again. She denied chest discomfort in the ER, and denied last time she was taken off sedation. She continues to have lower extremity edema. CC: Aurelia Brizuela MD - Home Medications and Allergies Home Medications: Home Medications Medication Instructions Recorded Confirmed Type Ofloxacin 0.3% Oph Soln [Ocuflox 1 drop LEFT EYE QID 03/17/17 05/06/17 History 0.3% Oph Soln] Polyvinyl Alcohol [Artificial 1 ml BOTH EYES QID PRN 03/17/17 05/06/17 History Tears] Atorvastatin [Lipitor] 80 mg PO BEDTIME #60 tablet 04/01/17 05/06/17 Rx Carvedilol [Coreg] 12.5 mg PO BID #120 tablet 04/01/17 05/06/17 Rx glyBURIDE [Diabeta] 2.5 mg PO BID W/MEALS tablet 04/12/17 05/06/17 Rx Clopidogrel [Plavix] 75 mg PO DAILY 04/26/17 05/06/17 History Isosorbide Mononitrate [Imdur] 30 mg PO DAILY 04/26/17 05/06/17 History Multivit,Iron,Mins/Folic Acid 1 each PO DAILY 04/26/17 05/06/17 History [[facility] Heart Tab] Sitagliptin Phosphate [Januvia] 50 mg PO BEDTIME 04/26/17 05/06/17 History Ampicillin Cap 500 mg PO BID #10 capsule 05/05/17 05/06/17 Rx Aspirin Chew Tab 81 mg PO DAILY tablet 05/05/17 05/06/17 Rx Furosemide Tab [Lasix Tab] 40 mg PO BID #60 05/05/17 05/06/17 Rx Losartan [Cozaar] 100 mg PO DAILY #0 05/05/17 05/06/17 Rx Pantoprazole Tab [Protonix Tab] 40 mg PO DAILY #30 tablet 05/05/17 05/06/17 Rx Allergies/Adverse Reactions: Allergies Allergy/AdvReac Type Severity Reaction Status Date / Time No Known Allergies Allergy Unverified 03/17/17 14:59 Medical,Surgical,& Family Hx - Medical History Cardio: History of: CHF, CAD (PCI 10/19/2011 & 05/03/2017), Hypertension, ME, PVD ( Peripheral Stent x2.), Valvular Heart Disease (aortic and mitral insufficiency ) No history of: Pacemaker Neurology: No history of: Cerebrovascular Accident Endocrine: History of: Diabetes Mellitus (NIDDM) Respiratory: History of: Intubation (04/2017) No history of: Asthma, COPD, Pulmonary Embolism Renal: History of: Renal Failure (CKD Stage III) Gastrointestinal: No history of: GERD Musculoskeletal: History of: Back/Neck Problems (1971) Other: No history of: Cancer - Surgical History Cardiac Surgeries: Sugical HX of: Cardiac Catheterization (2 stents to the RCA and one stent to the left circumflex on October 19, 2011) HEENT Surgeries: Patient denies: Tonsilectomy & Adenoidectomy Abdominal Surgeries: Patient denies: Abdominal Surgery Reproductive Surgeries: Surgical HX of;: Gynecologic Surgery, Hysterectomy Orthopedic Surgeries: Patient denies;: Orthopedic Surgery - Family History Family History: Reports;: Family Cancer (Brother (leukemia)), Family Heart Disease, Family Hypertension, Family Stroke - Social History Smoking Status: Never smoker Frequency of Alcohol Use: None Type of Drug Use: None Physical Examination Vital Signs Temp Pulse Resp BP Pulse Ox 98.1 F 101 H 24 153/85 99 05/05/17 21:16 05/05/17 21:16 05/05/17 21:16 05/05/17 21:16 05/05/17 21:16 General: Present: Other (Sedated and intubated) Neck: Present: Midline Trachea Cardiac: Present: Reg Rate and Rhythm, Systolic Murmur. Absent: Diastolic Murmur Lungs: Present: Rales - Left, Rales - Right. Absent: Wheezes Abdomen: Present: Soft Extremities: Present: +2 Edema, Other (Relatively warm extremity) Result/EKG - Labs CBC & BMP: 05/06/17 05:19 05/06/17 05:19 Labs: Laboratory Results - last 24 hr 05/05/17 05/05/17 05/05/17 21:40 21:40 21:40 WBC 16.5 H D RBC 3.75 L Hgb 10.6 L Hct 33.0 L MCV 88.0 MCH 28 MCHC 32.1 RDW 14.7 Plt Count 341 D MPV 9.9 Neut % (Auto) 83.3 H Lymph % (Auto) 8.8 L Daniels % (Auto) 3.8 Eos % (Auto) 3.2 Baso % (Auto) 0.2 Neut # (Auto) 13.8 H Lymph # (Auto) 1.5 Daniels # (Auto) 0.6 Eos # (Auto) 0.5 Baso # (Auto) 0.0 Immature Gran % 0.7 Nucleated RBC % 0.0 Immature Gran # 0.11 Nucleated RBCs # 0.00 INR 1.1 PT Patient/Control Mix 11.8 D-Dimer, Quantitative 4.7 Circ Anticoag PTT 26.3 ABG pH ABG pCO2 ABG pO2 ABG HCO3 ABG Total CO2 ABG O2 Saturation ABG Base Excess FiO2 Sodium Potassium Chloride Carbon Dioxide Anion Gap BUN Creatinine GFR Calculation BUN/Creatinine Ratio Glucose POC Glucose Calculated Osmolality Lactic Acid Calcium Magnesium Total Bilirubin AST ALT Alkaline Phosphatase Total Creatine Kinase CK-MB (CK-2) CK and CKMB Interp Troponin I B-Natriuretic Peptide > 5000 H Total Protein Albumin Globulin Albumin/Globulin Ratio Urine Color Urine Appearance Urine pH Ur Specific Calhoun Urine Protein Urine Glucose (UA) Urine Ketones Urine Blood Urine Nitrate Urine Bilirubin Urine Urobilinogen Urine Leukocytes Urine RBC Urine WBC Ur Squamous Epith Cells Urine Bacteria Ur Culture Indicated? 05/05/17 05/05/17 05/05/17 21:50 22:44 23:09 WBC RBC Hgb Hct MCV MCH MCHC RDW Plt Count MPV Neut % (Auto) Lymph % (Auto) Daniels % (Auto) Eos % (Auto) Baso % (Auto) Neut # (Auto) Lymph # (Auto) Daniels # (Auto) Eos # (Auto) Baso # (Auto) Immature Gran % Nucleated RBC % Immature Gran # Nucleated RBCs # INR PT Patient/Control Mix D-Dimer, Quantitative Circ Anticoag PTT ABG pH 7.319 L ABG pCO2 52.3 H ABG pO2 75.0 L ABG HCO3 24.4 ABG Total CO2 24.5 ABG O2 Saturation 92.8 L ABG Base Excess 0.1 FiO2 55.00 Sodium Potassium Chloride Carbon Dioxide Anion Gap BUN Creatinine GFR Calculation BUN/Creatinine Ratio Glucose POC Glucose Calculated Osmolality Lactic Acid 2.0 Calcium Magnesium Total Bilirubin AST ALT Alkaline Phosphatase Total Creatine Kinase CK-MB (CK-2) CK and CKMB Interp Troponin I B-Natriuretic Peptide Total Protein Albumin Globulin Albumin/Globulin Ratio Urine Color Yellow Urine Appearance Cloudy Urine pH 5.0 Ur Specific Calhoun 1.006 Urine Protein Negative Urine Glucose (UA) Negative Urine Ketones Negative Urine Blood Small Urine Nitrate Negative Urine Bilirubin Negative Urine Urobilinogen < 2.0 H Urine Leukocytes Negative Urine RBC 1 Urine WBC 1 Ur Squamous Epith Cells Occasional Urine Bacteria Occasional Ur Culture Indicated? Not indicated 05/05/17 05/06/17 05/06/17 Unknown 00:00 05:19 WBC RBC Hgb Hct MCV MCH MCHC RDW Plt Count MPV Neut % (Auto) Lymph % (Auto) Daniels % (Auto) Eos % (Auto) Baso % (Auto) Neut # (Auto) Lymph # (Auto) Daniels # (Auto) Eos # (Auto) Baso # (Auto) Immature Gran % Nucleated RBC % Immature Gran # Nucleated RBCs # INR PT Patient/Control Mix D-Dimer, Quantitative Circ Anticoag PTT ABG pH 7.344 L ABG pCO2 48.7 H ABG pO2 363.4 H ABG HCO3 25.9 ABG Total CO2 27.4 H ABG O2 Saturation 99.4 ABG Base Excess -0.2 FiO2 100.00 Sodium 141 Potassium 5.1 Chloride 106 Carbon Dioxide 27 Anion Gap 13.1 BUN 40 H Creatinine 1.96 H GFR Calculation 23 BUN/Creatinine Ratio 20.00 Glucose 197 H POC Glucose Calculated Osmolality 295.3 Lactic Acid Calcium 9.6 Magnesium 2.4 Total Bilirubin 0.40 AST 90 H ALT 76 H Alkaline Phosphatase 456 H Total Creatine Kinase 167 D 151 CK-MB (CK-2) 6.1 H 8.4 H CK and CKMB Interp 3.7 5.6 Troponin I 5.040 H 7.950 H D B-Natriuretic Peptide Total Protein 7.9 Albumin 3.0 L Globulin 4.9 H Albumin/Globulin Ratio 0.6 L Urine Color Urine Appearance Urine pH Ur Specific Calhoun Urine Protein Urine Glucose (UA) Urine Ketones Urine Blood Urine Nitrate Urine Bilirubin Urine Urobilinogen Urine Leukocytes Urine RBC Urine WBC Ur Squamous Epith Cells Urine Bacteria Ur Culture Indicated? 05/06/17 05/06/17 05/06/17 05:19 05:19 05:19 WBC 9.9 D RBC 3.42 L Hgb 9.5 L Hct 29.5 L MCV 86.3 L MCH 28 MCHC 32.2 RDW 14.6 Plt Count 300 MPV 10.3 Neut % (Auto) 73.4 Lymph % (Auto) 17.9 L Daniels % (Auto) 7.1 Eos % (Auto) 1.2 Baso % (Auto) 0.1 Neut # (Auto) 7.3 Lymph # (Auto) 1.8 Daniels # (Auto) 0.7 Eos # (Auto) 0.1 Baso # (Auto) 0.0 Immature Gran % 0.3 Nucleated RBC % 0.0 Immature Gran # 0.03 Nucleated RBCs # 0.00 INR PT Patient/Control Mix D-Dimer, Quantitative Circ Anticoag PTT ABG pH ABG pCO2 ABG pO2 ABG HCO3 ABG Total CO2 ABG O2 Saturation ABG Base Excess FiO2 Sodium 144 Potassium 4.2 Chloride 108 H Carbon Dioxide 28 Anion Gap 12.2 BUN 42 H Creatinine 1.90 H GFR Calculation 24 BUN/Creatinine Ratio 22.00 H Glucose 152 H POC Glucose Calculated Osmolality 299.8 Lactic Acid Calcium 8.8 Magnesium 2.0 Total Bilirubin 0.80 AST 56 H ALT 49 Alkaline Phosphatase 330 H Total Creatine Kinase CK-MB (CK-2) CK and CKMB Interp Troponin I B-Natriuretic Peptide > 5000 H Total Protein 5.8 L Albumin 2.1 L Globulin 3.7 H Albumin/Globulin Ratio 0.5 L Urine Color Urine Appearance Urine pH Ur Specific [place]oun Urine Protein Urine Glucose (UA) Urine Ketones Urine Blood Urine Nitrate Urine Bilirubin Urine Urobilinogen Urine Leukocytes Urine RBC Urine WBC Ur Squamous Epith Cells Urine Bacteria Ur Culture Indicated? 05/06/17 06:33 WBC RBC Hgb Hct MCV MCH MCHC RDW Plt Count MPV Neut % (Auto) Lymph % (Auto) Daniels % (Auto) Eos % (Auto) Baso % (Auto) Neut # (Auto) Lymph # (Auto) Daniels # (Auto) Eos # (Auto) Baso # (Auto) Immature Gran % Nucleated RBC % Immature Gran # Nucleated RBCs # INR PT Patient/Control Mix D-Dimer, Quantitative Circ Anticoag PTT ABG pH ABG pCO2 ABG pO2 ABG HCO3 ABG Total CO2 ABG O2 Saturation ABG Base Excess FiO2 Sodium Potassium Chloride Carbon Dioxide Anion Gap BUN Creatinine GFR Calculation BUN/Creatinine Ratio Glucose POC Glucose 152 H Calculated Osmolality Lactic Acid Calcium Magnesium Total Bilirubin AST ALT Alkaline Phosphatase Total Creatine Kinase CK-MB (CK-2) CK and CKMB Interp Troponin I B-Natriuretic Peptide Total Protein Albumin Globulin Albumin/Globulin Ratio Urine Color Urine Appearance Urine pH Ur Specific [place]houn Urine Protein Urine Glucose (UA) Urine Ketones Urine Blood Urine Nitrate Urine Bilirubin Urine Urobilinogen Urine Leukocytes Urine RBC Urine WBC Ur Squamous Epith Cells Urine Bacteria Ur Culture Indicated?
[2017-05-06] MEDS: CLOPIDOGREL 75 MG TABLET PO SCH (10:19)
[2017-05-06] MEDS: ATORVASTATIN 80 MG TABLET PO SCH (10:19)
[2017-05-06] MEDS: SPIRONOLACTONE 25 MG TABLET PO SCH (10:19)
[2017-05-06] MEDS: ASPIRIN CHEW 81 MG TABLET PO SCH (10:19)
[2017-05-06 10:48] LABS: CKMB % 5.6 %
--- NOTE | 2017-05-06 13:53 | Hospitalist Progress Note ---
Assessment and Plan (1) Acute respiratory failure Status: Acute Assessment and plan: due to flash pulmonary edema, Dr. Contreras managing the vent Current Visit: Yes Qualifiers: Respiratory failure complication: hypercapnia Qualified Code(s): J96.02 - Acute respiratory failure with hypercapnia (2) Flash pulmonary edema Status: Acute Assessment and plan: Patient was doing well yesterday when she was discharged. Patient goes into flash pulmonary edema from aortic and mitral valve failure and returned to the emergency and had to be reintubated. Code status discussed with patients . BISHNU in am Current Visit: Yes (3) Chronic kidney disease (CKD) Status: Chronic Assessment and plan: chronic stage 3 renal failure Current Visit: No Qualifiers: Chronic kidney disease stage: stage 3 (moderate) Qualified Code(s): N18.3 - Chronic kidney disease, stage 3 (moderate) (4) Diabetes mellitus Status: Chronic Assessment and plan: isc, start tube feeding Current Visit: No Qualifiers: Diabetes mellitus type: type 2 Diabetes mellitus complication status: with unspecified complications Diabetes mellitus mcc insulin use: without exterminator use Qualified Code(s): E11.8 - Type 2 diabetes mellitus with unspecified complications (5) Anemia Status: Chronic Assessment and plan: Patient is a Rastafari and refuses blood transfusions. So far her hemoglobin stable. Patient is on anticoagulation. Patient will have to have DVT prophylaxis with scd. Current Visit: No (6) Elevated troponin Status: Acute Assessment and plan: s/p heart cath on 05/03/17, 50% smooth proximal LAD stenosis with significant, heavily calcified 70% mid LAD stenosis (significant by Wave[employer] evaluation with FFR 0.77) 99% proximal circumflex stenosis, as well as 80% tubular ostial OM 2 stenosis, Known ostial RCA occlusion with filling of the RCA by [id number] collaterals (evaluated March 2017), Status post successful orbital atherectomy and stenting of mid LAD with 3.0 x 20 Synergy drug-eluting stent with excellent result, Status post successful orbital atherectomy and stenting of proximal circumflex with 2.25 x 16 Synergy link stent with less than 20% residual stenosis per Current Visit: No (7) Refusal of blood transfusions as patient is Rastafari Status: Chronic Current Visit: No (8) Acute on chronic systolic (congestive) heart failure Status: Acute Assessment and plan: Lasix 80 mg IV q. 12, Coreg 3.125 twice daily, nitro drip for afterload reduction, spironolactone 25 mg through the NG Current Visit: Yes Hospitalist: Subjective Interval history: Discussed her case at that both Dr. Contreras and Dr. Medley. Updated her on her condition and he still wants to keep her as a full code. Dr. Medley plans to do a BISHNU on Monday. He feels that if he can demonstrate that her valve is worse he may be able to talk Abril into doing at [facility]. Exam - Constitutional Vitals: Period Temp Pulse Resp BP Sys/Pina Pulse Ox Last 24 Hr 97.9 F-98.5 F 61-101 10-33 98-178/49-100 99-100 Exam: Heart Rate-[RRR with murmur] Lungs-[bilateral crackles] GI-[+bs soft, NT] Ext-[2+ edema] Neuro sedated and intubated psych cannot assess due to sedation General [no acute distress] Results - Labs CBC & BMP: 05/06/17 05:19 05/06/17 05:19 Lab Results: I have reviewed the past 24 hour labs Labs: BNP greater than 5000 and troponins are climbing. - Diagnostic Findings Procedure: Chest x-ray: report reviewed by me (Pulmonary edema)
[2017-05-06] MEDS ORDERED: DEXTROSE 50% 25 GM/50 ML VIAL IV PRN (13:58)
[2017-05-06] MEDS ORDERED: GLUCAGON 1 MG VIAL IM PRN (13:58)
[2017-05-06] MEDS ORDERED: ENOXAPARIN 40 MG/0.4 ML SYRINGE SUBCUT SCH (19:00)
[2017-05-06] MEDS: FUROSEMIDE 40 MG/4 ML VIAL IV SCH (20:10)
[2017-05-06] MEDS: CARVEDILOL 3.125 MG TABLET PO SCH (20:10)
[2017-05-07] MEDS: PANTOPRAZOLE 40 MG VIAL IV SCH (01:47)
[2017-05-07 02:40] LABS: ABG Base Excess 5.8 MMOL/L (-2.5-2.5); ABG HCO3 27.8 MMOL/L (20-26); ABG PCO2 30.8 MM HG (35-48); ABG PH 7.573 (7.35-7.45); ABG PO2 252.9 MM HG (80-95); ABG TCO2 28.7 MMOL/L (23-27); Allen Test Positive; Pt O2 Delivery Device Ventilator
[2017-05-07] MEDS: INSULIN REGULAR 100 UNIT/ML SUBCUT SCH ×3 (05:20→17:58)
[2017-05-07 05:23] LABS: Basophils % 0.2 % (0.0-0.8); Eosinophils # 0.4 10*3/uL (0.0-0.87); Eosinophils % 4.3 % (0.00-10.9); Hematocrit 26.5 VOL% (35.7-47.0); Hemoglobin 8.8 GM/DL (12.0-16.0); Immature Granulocytes % 0.5 %; Immature Granulocytes Absolute 0.04 #; Lymphocytes # 1.9 10*3/uL (1.4-4.0); Lymphocytes % 22.1 % (21.3-54.2); Mean Corpuscular HGB Conc 33.2 GM/DL (32-36); Mean Corpuscular Hemoglobin 28 PG (27-34); Mean Corpuscular Volume 84.4 FL (87-102); Mean Platelet Volume 10.3 FL (9.6-12.0); Monocytes # 0.6 10*3/uL (0.11-0.8); Monocytes % 7.1 % (1.7-12.7); Neutrophils # 5.6 10*3/uL (1.4-7.4); Neutrophils % 65.8 % (38.7-73.9); Platelet Count 291 T/CUMM (130-400); Red Blood Count 3.14 MC/CUMM (3.8-5.5); White Blood Count 8.4 T/CUMM (4-12)
[2017-05-07 05:53] LABS: Calcium 8.7 MG/DL (8.5-10.1); Magnesium 2.1 MG/DL (1.8-2.4); Osmolality,Calculated 302.6 MOS/KG (273-304); Potassium 3.5 MMOL/L (3.5-5.1)
--- NOTE | 2017-05-07 07:26 | Pulmonology Progress Note ---
Pulmonary - PN: Subj Interval history: The patient is a 76-year-old black lady that has chronic heart failure. She came in with respiratory distress and is back on the ventilator. She has been on the ventilator several times this summer. She has significant valvular heart disease. She is a Muslim and nobody wants to do surgery on her. She continues to have some congestive heart failure. She is stable on the ventilator at present. Exam (Progress Note) - Constitutional Vitals: Period Temp Pulse Resp BP Sys/Pina Pulse Ox Last 24 Hr 97.5 F-98.6 F 57-78 10-24 84-159/41-78 97-100 Exam: General appearance: no acute distress (She is sedated on the ventilator and comfortable. She will arouse okay.), over weight - Head Head exam: Present: normal inspection, normocephalic - Eye Eye exam: Present: EOMI. Absent: scleral icterus Pupils: Present: WESLY - ENT ENT exam: Present: other (ET tube is in good position.) - Neck Neck exam: Present: normal inspection. Absent: lymphadenopathy, thyromegaly - Respiratory Respiratory exam: Present: Her lungs have good breath sounds bilaterally with some mild crackles bilaterally. - Cardiovascular Cardiovascular exam: Present: gallop, regular rate and rhythm, systolic murmur ( She does have a loud systolic murmur.), tachycardia - GI/Abdominal GI/Abdominal exam: Present: normal bowel sounds, soft. Absent: organomegaly, tenderness - Extremities Exam Extremities exam: Present: edema (She does have swelling of her lower extremities.). Absent: calf tenderness - Neurological Exam Neurological exam: Present: other (Patient is sedated at present.) - Psychiatric Psychiatric exam: Absent: anxious - Skin Skin exam: Present: warm, dry Results - Labs CBC & BMP: 05/07/17 04:04 05/07/17 04:04 Labs: PO2 is 252 with a PCO2 of 30 and a pH of 7.57 - Diagnostic Findings Procedure: Chest x-ray: image reviewed by me, report reviewed by me (Chest x- ray shows cardiomegaly with CHF that is improving) Assessment and Plan (1) Aortic stenosis Status: Chronic Assessment and plan: The patient has significant valvular heart disease and is doing poorly now. Her outlook is very poor. She basically has chronic heart failure. Current Visit: No (2) Chronic kidney disease (CKD) Status: Chronic Assessment and plan: Patient's creatinine is 1.8. Current Visit: No Qualifiers: Chronic kidney disease stage: stage 3 (moderate) Qualified Code(s): N18.3 - Chronic kidney disease, stage 3 (moderate) (3) Diabetes mellitus Status: Chronic Assessment and plan: Her glucose is 125. Current Visit: No Qualifiers: Diabetes mellitus type: type 2 Diabetes mellitus complication status: with unspecified complications Diabetes mellitus assisted insulin use: without petroleum terminal plant operator use Qualified Code(s): E11.8 - Type 2 diabetes mellitus with unspecified complications (4) Acute respiratory failure Status: Acute Assessment and plan: Patient went into pulmonary edema and is back on the ventilator. Her oxygenation is better and will adjust her ventilator. Current Visit: Yes Qualifiers: Respiratory failure complication: hypercapnia Qualified Code(s): J96.02 - Acute respiratory failure with hypercapnia (5) CHF (congestive heart failure) Status: Acute Assessment and plan: The patient goes into heart failure quite easily. Without the valvular replacement her outlook is poor. She is stable on the ventilator and is diuresing fairly well Current Visit: Yes Qualifiers: Congestive heart failure type: systolic Congestive heart failure chronicity : acute on chronic Qualified Code(s): I50.23 - Acute on chronic systolic ( congestive) heart failure
[2017-05-07] MEDS: PROPOFOL 1,000 MG/100 ML BOTTLE IV SCH (07:40)
--- NOTE | 2017-05-07 07:55 | EKG Report ---
Stationary ECG Study [facility] Test Date: 05/07/2017 7:57:36 AM Pat Name: THADDEUS AN Department: Room: 110 Gender: F Rehab Department Manager: : 1940 Requested by: Arsenio Colon Order Number: [id number] Reading MD: KIMBERLEE JIMENEZ Intervals [place] Rate: 71 P: 50 LA: 167 QRS: 73 QRSD: 97 T: 240 QT: 456 QTc: 478 Interpretive Statements SINUS RHYTHM ST DEVIATION AND MODERATE T-WAVE ABNORMALITY, CONSIDER ANTEROLATERAL ISCHEMIA Electronically Signed On 05-08-17 18:26:35 CDT by KIMBERLEE JIMENEZ [email or web address]
[2017-05-07] MEDS: FUROSEMIDE 40 MG/4 ML VIAL IV SCH ×2 (08:02→16:08)
--- NOTE | 2017-05-07 08:37 | Cardiology Progress Note ---
Assessment and Plan (1) Aortic insufficiency Status: Chronic Assessment and plan: 1. 76-year-old BF well known to me who is admitted with non-STEMI and heart failure early March 2017 complicated by mildly reduced LV function and severely calcified three-vessel coronary artery disease as well as valvular heart disease (probably moderate mitral stenosis and MR as well as moderate to severe aortic stenosis/AR), who is not a surgical candidate due her conviction against taking blood transfusion, status post atherectomy and stenting of her significant mid LAD and proximal circumflex lesions 3 days ago discharge yesterday but returned yesterday evening with pulmonary edema requiring intubation again. This is a third time she is coming with pulmonary edema requiring intubation the first time was for 9 days and the last time was for 2 days. 2. Continue aggressive IV diuresis. She has some hypertension and heart failure should be held by intravenous nitroglycerin so I am starting that. 3. Creatinine is slightly less than earlier in the week, but probably a bit above baseline at 1.9; I am adding spironolactone 25mg to treat her heart failure/mild cardiomyopathy but we will need to watch her potassium and renal function closely 4. She was previously transferred to [facility] where she was evaluated and felt to have nonsignificant valvular disease "moderate"; however given her clinical history I suspect that her aortic valvular disease is significant. If she is able to get off the ventilator, I will revisit this with them or send her elsewhere for evaluation for SIVAN. May 07 update: 1. Ms. Moscoso has done very well during the night with stable vital signs, control blood pressure, and excellent gases this morning. 2. Add low-dose ARB with valsartan 40 mg per day given her mild cardiomyopathy and pulmonary edema 3. Creatinine is slightly better today, although her hematocrit is dropped modestly below 27% with mild microcytosis but no evidence of bleeding. She is only on aspirin 81 mg and Plavix. 4[address] SCDs for DVT prophylaxis 5. She is not a candidate for open surgery given her conviction against taking blood transfusion. She was evaluated at [facility] or her mitral and aortic AR/ was felt to be "moderate", and therefore not hemodynamically significant. I suspect she will make good progress weaning from the ventilator today (starting today), given this is her third admission with pulmonary edema requiring intubation, and stenting her high mid LAD and proximal circumflex (ostial RCA occlusion does not appear amenable to percutaneous intervention) does not appear to have solved the problem (less likely to be predominant diastolic heart failure episodes associated with ischemia), I would like to consider transferring her to [facility] tomorrow for a second opinion regarding her valvular disease, whether she would benefit from SIVAN. 6. DC nitrate infusion, and start low-dose amlodipine 2.5 mg daily Current Visit: Yes Qualifiers: Cardiac valve disease etiology: nonrheumatic Qualified Code(s): I35.1 - Nonrheumatic aortic (valve) insufficiency (2) Mitral regurgitation Status: Chronic Current Visit: Yes Qualifiers: Cardiac valve disease etiology: nonrheumatic Qualified Code(s): I34.0 - Nonrheumatic mitral (valve) insufficiency (3) Anemia Status: Chronic Current Visit: No (4) Essential hypertension Status: Chronic Current Visit: No (5) Refusal of blood transfusions as patient is Jew Status: Chronic Current Visit: No Cardiology - PN: Subj Interval history: Ms. Moscoso seems to be doing well with stable rhythm and blood pressure in excellent gases on ABG this morning. She has not had any setbacks during the night. She is still sedated and intubated. Exam (Progress Note) - Constitutional Vitals: Period Temp Pulse Resp BP Sys/Pina Pulse Ox Last 24 Hr 97.5 F-98.6 F 57-78 10-24 84-139/41-69 97-100 General appearance: normal weight, no acute distress, other (Sedated and intubated) - Neck Neck exam: Present: normal inspection - Respiratory Respiratory exam: Present: rales. Absent: stridor, wheezes - Cardiovascular Cardiovascular exam: Present: regular rate and rhythm, systolic murmur. Absent : diastolic murmur, rubs - GI/Abdominal GI/Abdominal exam: Present: soft. Absent: tenderness - Extremities Exam Extremities exam: Present: edema Result/EKG - Labs CBC & BMP: 05/07/17 04:04 05/07/17 04:04 Labs: Laboratory Results - last 24 hr 05/06/17 05/06/17 05/06/17 10:06 12:28 18:22 WBC RBC Hgb Hct MCV MCH MCHC RDW Plt Count MPV Neut % (Auto) Lymph % (Auto) Lane % (Auto) Eos % (Auto) Baso % (Auto) Neut # (Auto) Lymph # (Auto) Lane # (Auto) Eos # (Auto) Baso # (Auto) Immature Gran % Nucleated RBC % Immature Gran # Nucleated RBCs # ABG pH ABG pCO2 ABG pO2 ABG HCO3 ABG Total CO2 ABG O2 Saturation ABG Base Excess FiO2 Sodium Potassium Chloride Carbon Dioxide Anion Gap BUN Creatinine GFR Calculation BUN/Creatinine Ratio Glucose POC Glucose 95 65 L Calculated Osmolality Calcium Magnesium Total Creatine Kinase 124 CK-MB (CK-2) 7.0 H CK and CKMB Interp 5.6 Troponin I 8.000 H 05/06/17 05/07/17 05/07/17 23:32 02:15 03:39 WBC RBC Hgb Hct MCV MCH MCHC RDW Plt Count MPV Neut % (Auto) Lymph % (Auto) Lane % (Auto) Eos % (Auto) Baso % (Auto) Neut # (Auto) Lymph # (Auto) Lane # (Auto) Eos # (Auto) Baso # (Auto) Immature Gran % Nucleated RBC % Immature Gran # Nucleated RBCs # ABG pH 7.573 H ABG pCO2 30.8 L ABG pO2 252.9 H ABG HCO3 27.8 H ABG Total CO2 28.7 H ABG O2 Saturation 99.0 ABG Base Excess 5.8 H FiO2 60.00 Sodium Potassium Chloride Carbon Dioxide Anion Gap BUN Creatinine GFR Calculation BUN/Creatinine Ratio Glucose POC Glucose 69 L 70 L Calculated Osmolality Calcium Magnesium Total Creatine Kinase CK-MB (CK-2) CK and CKMB Interp Troponin I 05/07/17 05/07/17 05/07/17 04:04 04:04 04:12 WBC 8.4 RBC 3.14 L Hgb 8.8 L Hct 26.5 L MCV 84.4 L MCH 28 MCHC 33.2 RDW 15.0 Plt Count 291 MPV 10.3 Neut % (Auto) 65.8 Lymph % (Auto) 22.1 Lane % (Auto) 7.1 Eos % (Auto) 4.3 Baso % (Auto) 0.2 Neut # (Auto) 5.6 Lymph # (Auto) 1.9 Lane # (Auto) 0.6 Eos # (Auto) 0.4 Baso # (Auto) 0.0 Immature Gran % 0.5 Nucleated RBC % 0.0 Immature Gran # 0.04 Nucleated RBCs # 0.00 ABG pH ABG pCO2 ABG pO2 ABG HCO3 ABG Total CO2 ABG O2 Saturation ABG Base Excess FiO2 Sodium 146 H Potassium 3.5 Chloride 108 H Carbon Dioxide 30 Anion Gap 11.5 BUN 39 H Creatinine 1.80 H GFR Calculation 26 BUN/Creatinine Ratio 21.00 H Glucose 170 H POC Glucose 169 H Calculated Osmolality 302.6 Calcium 8.7 Magnesium 2.1 Total Creatine Kinase CK-MB (CK-2) CK and CKMB Interp Troponin I 05/07/17 05:21 WBC RBC Hgb Hct MCV MCH MCHC RDW Plt Count MPV Neut % (Auto) Lymph % (Auto) Lane % (Auto) Eos % (Auto) Baso % (Auto) Neut # (Auto) Lymph # (Auto) Lane # (Auto) Eos # (Auto) Baso # (Auto) Immature Gran % Nucleated RBC % Immature Gran # Nucleated RBCs # ABG pH ABG pCO2 ABG pO2 ABG HCO3 ABG Total CO2 ABG O2 Saturation ABG Base Excess FiO2 Sodium Potassium Chloride Carbon Dioxide Anion Gap BUN Creatinine GFR Calculation BUN/Creatinine Ratio Glucose POC Glucose 125 H Calculated Osmolality Calcium Magnesium Total Creatine Kinase CK-MB (CK-2) CK and CKMB Interp Troponin I
[2017-05-07] MEDS: CARVEDILOL 3.125 MG TABLET PO SCH ×2 (08:48→21:15)
[2017-05-07] MEDS: SPIRONOLACTONE 25 MG TABLET PO SCH (08:48)
[2017-05-07] MEDS: ATORVASTATIN 80 MG TABLET PO SCH (08:48)
[2017-05-07] MEDS: CLOPIDOGREL 75 MG TABLET PO SCH (08:48)
[2017-05-07] MEDS: ASPIRIN CHEW 81 MG TABLET PO SCH (08:48)
[2017-05-07] MEDS: VALSARTAN 80 MG TABLET PO SCH (08:59)
[2017-05-07] MEDS: NITROGLYCERIN DRIP 50 MG/250 ML BOTTLE IV SCH (09:34)
--- NOTE | 2017-05-07 09:59 | XRay Report ---
XR chest 1V portable Indication: Intubation Comparison: 05 May 2017 Findings: The heart and mediastinum are stable in size and configuration. NG tube is been added appears within normal limits. Endotracheal tube is unchanged in position. The pulmonary vascularity is increased with bilateral pulmonary density similar to previous exam. No definite new lung infiltrates, effusions, pneumothorax or other abnormality is demonstrated. Impression: NG tube added appears within normal limits. No other significant change . PROCEDURE INTERPRETED AT [facility] DEPARTMENT OF RADIOLOGY Final Report Signed by: Dr. Carlos Coronel
[2017-05-07] MEDS: amLODIPine 2.5 MG TABLET PO SCH (11:07)
--- NOTE | 2017-05-07 11:29 | Hospitalist Progress Note ---
Assessment and Plan (1) Acute on chronic systolic (congestive) heart failure Status: Acute Assessment and plan: cont Lasix 80 mg IV q. 12, Coreg 3.125 twice daily, nitro drip discontinued, spironolactone 25 mg. Exacerbations due to bad aortic and mitral valve. Dr. Medley would like to transfer to [facility] in the morning for valve replacement. Current Visit: Yes (2) Acute respiratory failure Status: Acute Assessment and plan: due to flash pulmonary edema due to bad aortic and mitral valve, Dr. Contreras managing the vent Current Visit: Yes Qualifiers: Respiratory failure complication: hypercapnia Qualified Code(s): J96.02 - Acute respiratory failure with hypercapnia (3) Chronic kidney disease (CKD) Status: Chronic Assessment and plan: chronic stage 3 renal failure Current Visit: No Qualifiers: Chronic kidney disease stage: stage 3 (moderate) Qualified Code(s): N18.3 - Chronic kidney disease, stage 3 (moderate) (4) Diabetes mellitus Status: Chronic Assessment and plan: isc, cont tube feeding, bs too low Current Visit: No Qualifiers: Diabetes mellitus type: type 2 Diabetes mellitus complication status: with unspecified complications Diabetes mellitus terminal gauger insulin use: without fdc use Qualified Code(s): E11.8 - Type 2 diabetes mellitus with unspecified complications (5) Anemia Status: Chronic Assessment and plan: Patient is a Hinduism and refuses blood transfusions. Hgb holding, Patient will have to have DVT prophylaxis with scd. Cont protonix Current Visit: No (6) Elevated troponin Status: Acute Assessment and plan: s/p heart cath on 05/03/17 with stent to the mid LAD and prox circumflex Current Visit: No (7) Refusal of blood transfusions as patient is Hinduism Status: Chronic Current Visit: No (8) Hypertension Status: Acute Assessment and plan: controlled Current Visit: Yes Hospitalist: Subjective Interval history: Dr. Medley myself have discussed her case. He will call [facility] in the morning and attempt to get her transferred for a TAVR. Patient is still intubated. She is less wet today. Her tongue looks a little more swollen than yesterday. We will continue to monitor it. I will speak with her today when he comes after roman catholic. We started tube feeds yesterday. Exam - Constitutional Vitals: Period Temp Pulse Resp BP Sys/Pina Pulse Ox Last 24 Hr 97.3 F-98.6 F 57-78 10-22 84-137/38-66 97-100 Exam: Heart Rate-[RRR with murmur] Lungs-few crackles but better GI-[+bs soft, NT] Ext-[2+ edema] Neuro sedated and intubated psych cannot assess due to sedation General [no acute distress] Results - Labs CBC & BMP: 05/07/17 04:04 05/07/17 04:04 Lab Results: I have reviewed the past 24 hour labs - Diagnostic Findings Procedure: Chest x-ray: report reviewed by me (Worsening congestive heart failure)
[2017-05-08] MEDS: INSULIN REGULAR 100 UNIT/ML SUBCUT SCH ×4 (00:34→18:03)
[2017-05-08] MEDS: PANTOPRAZOLE 40 MG VIAL IV SCH (01:29)
[2017-05-08] MEDS: PROPOFOL 1,000 MG/100 ML BOTTLE IV SCH (01:33)
[2017-05-08 02:45] LABS: ABG Base Excess 7.2 MMOL/L (-2.5-2.5); ABG Oxygen Saturation 99.2 % (95-100); ABG PH 7.514 (7.35-7.45); ABG TCO2 27.6 MMOL/L (23-27); Allen Test Positive; Pt O2 Delivery Device Ventilator
[2017-05-08 04:52] LABS: Basophils % 0.2 % (0.0-0.8); Eosinophils # 0.8 10*3/uL (0.0-0.87); Hematocrit 27.9 VOL% (35.7-47.0); Hemoglobin 9.1 GM/DL (12.0-16.0); Immature Granulocytes % 0.5 %; Immature Granulocytes Absolute 0.05 #; Lymphocytes # 2.2 10*3/uL (1.4-4.0); Lymphocytes % 21.2 % (21.3-54.2); Mean Corpuscular HGB Conc 32.6 GM/DL (32-36); Mean Corpuscular Hemoglobin 28 PG (27-34); Mean Corpuscular Volume 85.3 FL (87-102); Mean Platelet Volume 10.1 FL (9.6-12.0); Monocytes # 0.9 10*3/uL (0.11-0.8); Monocytes % 8.6 % (1.7-12.7); Neutrophils # 6.3 10*3/uL (1.4-7.4); Neutrophils % 61.5 % (38.7-73.9); Platelet Count 288 T/CUMM (130-400); Red Blood Count 3.27 MC/CUMM (3.8-5.5); White Blood Count 10.3 T/CUMM (4-12)
[2017-05-08 05:35] LABS: Calcium 8.4 MG/DL (8.5-10.1); Magnesium 2.3 MG/DL (1.8-2.4); Osmolality,Calculated 299.6 MOS/KG (273-304); Potassium 3.5 MMOL/L (3.5-5.1)
--- NOTE | 2017-05-08 07:11 | Cardiology Progress Note ---
Cardiology - PN: Subj Interval history: Cardiology note Complex cardiac patient picking up today for Dr. Medley. Status post third episode of pulmonary edema and another non-Q-wave TN Patient has severe calcified three-vessel CAD Status post atherectomy and mid LAD stent and proximal circumflex stent about 1 week ago Mild chronic renal insufficiency Patient has moderate a.s./AI and MR. Lutheran. She refuses blood products. Telemetry shows sinus rhythm in the 60s and 70s Blood pressure 134/58 O2 sat 100 on 40% FiO2 Regular rhythm systolic ejection murmur upper right sternal border. No AI heard Abdomen soft benign No leg edema Lab data today White count 10.3 hemoglobin 9.1 hematocrit 27.9 Sodium 146 potassium 3.5 chloride 108 CO2 30 BUN 35 creatinine 1.6 magnesium 2.3 BNP level greater than 5000 Troponin 8.0 Impression Recurrent CHF with intubation Non-Q-wave TN Severe calcified three-vessel CAD with occluded ostial RCA Status post atherectomy and mid LAD stent and proximal circumflex stent At least moderate a.s./AI Lutheran Mild chronic renal insufficiency Plan Aspirin 81 mg daily and Plavix 75 mg daily Carvedilol 3.125 mg twice daily Valsartan 80 mg daily Amlodipine 2.5 mg daily Weaning vent as tolerated No family present at this time. Will follow Dr. Medley's plan and see if patient can be referred to [facility]. Exam (Progress Note) - Constitutional Vitals: Period Temp Pulse Resp BP Sys/Pina Pulse Ox Last 24 Hr 97 F-98.7 F 60-73 10-40 84-143/38-77 97-100 Result/EKG - Labs CBC & BMP: 05/08/17 04:30 05/08/17 04:30 Labs: Laboratory Results - last 24 hr 05/07/17 05/07/17 05/07/17 11:38 17:56 23:55 WBC RBC Hgb Hct MCV MCH MCHC RDW Plt Count MPV Neut % (Auto) Lymph % (Auto) [place] % (Auto) Eos % (Auto) Baso % (Auto) Neut # (Auto) Lymph # (Auto) [place] # (Auto) Eos # (Auto) Baso # (Auto) Immature Gran % Nucleated RBC % Immature Gran # Nucleated RBCs # ABG pH ABG pCO2 ABG pO2 ABG HCO3 ABG Total CO2 ABG O2 Saturation ABG Base Excess FiO2 Sodium Potassium Chloride Carbon Dioxide Anion Gap BUN Creatinine GFR Calculation BUN/Creatinine Ratio Glucose POC Glucose 116 H 137 H 128 H Calculated Osmolality Calcium Magnesium 05/08/17 05/08/17 05/08/17 02:35 04:30 04:30 WBC 10.3 RBC 3.27 L Hgb 9.1 L Hct 27.9 L MCV 85.3 L MCH 28 MCHC 32.6 RDW 15.0 Plt Count 288 MPV 10.1 Neut % (Auto) 61.5 Lymph % (Auto) 21.2 L [place] % (Auto) 8.6 Eos % (Auto) 8.0 Baso % (Auto) 0.2 Neut # (Auto) 6.3 Lymph # (Auto) 2.2 [place] # (Auto) 0.9 H Eos # (Auto) 0.8 Baso # (Auto) 0.0 Immature Gran % 0.5 Nucleated RBC % 0.0 Immature Gran # 0.05 Nucleated RBCs # 0.00 ABG pH 7.514 H ABG pCO2 38.0 ABG pO2 143.0 H ABG HCO3 31.0 H ABG Total CO2 27.6 H ABG O2 Saturation 99.2 ABG Base Excess 7.2 H FiO2 40.00 Sodium 146 H Potassium 3.5 Chloride 108 H Carbon Dioxide 32 Anion Gap 9.5 BUN 35 H Creatinine 1.60 H GFR Calculation 30 BUN/Creatinine Ratio 21.00 H Glucose 128 H POC Glucose Calculated Osmolality 299.6 Calcium 8.4 L Magnesium 2.3 05/08/17 05:19 WBC RBC Hgb Hct MCV MCH MCHC RDW Plt Count MPV Neut % (Auto) Lymph % (Auto) [place] % (Auto) Eos % (Auto) Baso % (Auto) Neut # (Auto) Lymph # (Auto) [place] # (Auto) Eos # (Auto) Baso # (Auto) Immature Gran % Nucleated RBC % Immature Gran # Nucleated RBCs # ABG pH ABG pCO2 ABG pO2 ABG HCO3 ABG Total CO2 ABG O2 Saturation ABG Base Excess FiO2 Sodium Potassium Chloride Carbon Dioxide Anion Gap BUN Creatinine GFR Calculation BUN/Creatinine Ratio Glucose POC Glucose 126 H Calculated Osmolality Calcium Magnesium
--- NOTE | 2017-05-08 07:35 | XRay Report ---
XR chest 1V portable Indication: Intubation Comparison: 07 May 2017 Findings: The heart and mediastinum are stable in size and configuration. The lines and tubes are unchanged in position. The pulmonary vascularity is increased with bilateral pulmonary density similar to previous exam. No other lung infiltrates, effusions, pneumothorax or other abnormality is demonstrated. Impression: No significant change PROCEDURE INTERPRETED AT [facility] DEPARTMENT OF RADIOLOGY Final Report Signed by: Dr. Carlos Coronel
[2017-05-08] MEDS: FUROSEMIDE 40 MG/4 ML VIAL IV SCH ×2 (09:09→17:00)
[2017-05-08] MEDS: ASPIRIN CHEW 81 MG TABLET PO SCH (09:09)
[2017-05-08] MEDS: SPIRONOLACTONE 25 MG TABLET PO SCH (09:10)
[2017-05-08] MEDS: ATORVASTATIN 80 MG TABLET PO SCH (09:10)
[2017-05-08] MEDS: VALSARTAN 80 MG TABLET PO SCH (09:10)
[2017-05-08] MEDS: CARVEDILOL 3.125 MG TABLET PO SCH ×2 (09:10→20:11)
[2017-05-08] MEDS: CLOPIDOGREL 75 MG TABLET PO SCH (09:10)
[2017-05-08] MEDS: amLODIPine 2.5 MG TABLET PO SCH (09:10)
--- NOTE | 2017-05-08 10:10 | Pulmonology Progress Note ---
Pulmonary - PN: Subj Interval history: Is a 76-year-old black female whom I saw earlier on during her last hospitalization. She had been admitted with acute congestive heart failure and respiratory failure that required intubation mechanical ventilation. She had been seen in [place] because of her valve disease which Dr. Regan describes is moderate aortic insufficiency and mild mitral regurgitation. She also had an acute ME this admission. She had total occlusion of the right coronary artery. She had a significant proximal LAD lesion which was stenosed and she had a significant circumflex lesion when there was stenosis. This patient was discharged home on 05/05/2017 was back in here on 05/06/2017 with acute congestive heart failure. Based on review of her records it appeared that she had some significant dietary salt indiscretion. This patient is a Pentecostalism. Other problems include high blood pressure, diabetes mellitus type 2. Aortic stenosis. Chronic anemia. This patient never smoked. She denies alcohol. She is a Pentecostalism. Chest x-ray 05/08/2017. Congestive heart failure with bilateral pleural effusions and increased interstitial edema. 05/08/2017. ABGs on FiO2 40% mechanical ventilation shows a pH 7.51, PCO2 38, PO2 143 and a bicarb of 31. 05/08/2017. Lab. Electrolytes are normal. Creatinine is 1.60. BUN is 35. Most recent alkaline Gregorio was elevated 330. AST was 56 which is elevated and ALT was normal at 49. Total bilirubin was 0.80. Troponins have been as high as 8.0. Last nitrated peptide was greater than 5000 Microbiology. No positive cultures Physical exam. Vital signs see below. Psychiatric. Alert oriented cooperative. Face. Symmetrical. No edema of the lips or tongue. Neck. No meningismus. Chest. Rales Heart. Lateral PMI Abdomen. Nondistended. Positive bowel sounds Extremities. Nothing to suggest deep venous thrombophlebitis. Neurologic. Cranial nerves are intact. Patient moves all 4 extremities. Lymphatics. No submandibular cervical supraclavicular or epitrochlear adenopathy. Plan. 1. Weaning protocol. Stage II today. Advance as tolerated. As soon as this patient's congestive heart failure is resolved she should be easily extubated 2. Physical therapy protocol 3. Daily lab ABGs chest x-ray 4. See orders Exam (Progress Note) - Constitutional Vitals: Period Temp Pulse Resp BP Sys/Pina Pulse Ox Last 24 Hr 97 F-98.7 F 60-82 10-40 84-162/41-77 97-100 Results - Labs CBC & BMP: 05/08/17 04:30 05/08/17 04:30
[2017-05-08] MEDS: DESITIN 4OZ/NYSTATIN 15 GRAM MIXTURE PASTE TOP SCH ×2 (13:33→20:17)
[2017-05-08] MEDS: MULTIVITAMIN LIQUID (CENTRUM) 60 ML BOTTLE PO SCH (13:34)
--- NOTE | 2017-05-08 15:25 | Hospitalist Progress Note ---
Assessment and Plan (1) Congestive heart failure Status: Chronic Assessment and plan: 1)recurrent CHF and NSTEMI with flash pulmonary edema, valve disease- She has recurrent episodes of acute resp failure requiring intubation and has not been able to exist outside the hospital for more than a few days over the last months. She will go to [facility] when they have a bed available. In the meantime continue medical treatment and diuresis. aldactone, norvasc, hydaralzine, diovan, coreg. last troponin 8. 2)acute resp failure- comfortable on vent. 3)DM- monitor accuchecks, SSI. On tube feeds. Current Visit: No Qualifiers: Congestive heart failure type: combined Congestive heart failure chronicity : acute on chronic Qualified Code(s): I50.43 - Acute on chronic combined systolic (congestive) and diastolic (congestive) heart failure (2) Essential hypertension Status: Chronic Current Visit: No (3) Coronary artery disease Status: Chronic Current Visit: No Qualifiers: Coronary Disease-Associated Artery/Lesion type: [place] artery [place] vs. transplanted heart: hopi heart Associated angina: without angina Qualified Code(s): I25.10 - Atherosclerotic heart disease of hopi coronary artery without angina pectoris (4) Mitral regurgitation Status: Chronic Current Visit: Yes Qualifiers: Cardiac valve disease etiology: nonrheumatic Qualified Code(s): I34.0 - Nonrheumatic mitral (valve) insufficiency (5) Biatrial enlargement Status: Chronic Current Visit: No (6) NSTEMI (non-ST elevated myocardial infarction) Status: Resolved Current Visit: No (7) Aortic stenosis Status: Chronic Current Visit: No (8) Pulmonary edema Status: Resolved Current Visit: No (9) Respiratory failure Status: Resolved Current Visit: No (10) Chronic kidney disease (CKD) Status: Chronic Current Visit: No Qualifiers: Chronic kidney disease stage: stage 3 (moderate) Qualified Code(s): N18.3 - Chronic kidney disease, stage 3 (moderate) Hospitalist: Subjective Interval history: Mrs Moscoso is alert on the vent, communicating with shakes and nods of the head and with sign language. Denies shortness of breath or pain. Dr Medley has discussed transfer to [facility] with Dr Conway who has accepted her when they have a bed available. I have completed the transfer paperwork but not a discharge summary since there is no known time of transfer. Exam - Constitutional Vitals: Period Temp Pulse Resp BP Sys/Pina Pulse Ox Last 24 Hr 98 F-98.7 F 58-82 10-29 111-162/45-77 96-100 General appearance: normal weight, no acute distress - Eye Eye exam: Present: EOMI. Absent: scleral icterus - Respiratory Respiratory exam: Present: rales (at bases bilaterally) - Cardiovascular Cardiovascular exam: Present: regular rate and rhythm - GI/Abdominal GI/Abdominal exam: Present: normal bowel sounds, soft. Absent: tenderness - Extremities Exam Extremities exam: Absent: edema Results - Labs CBC & BMP: 05/08/17 04:30 05/08/17 04:30 Lab Results: I have reviewed the past 24 hour labs
[2017-05-08] MEDS: MORPHINE 2 MG/1 ML SYRINGE IV PRN (20:11)
[2017-05-09] MEDS: INSULIN REGULAR 100 UNIT/ML SUBCUT SCH ×5 (00:41→23:50)
[2017-05-09] MEDS: PROPOFOL 1,000 MG/100 ML BOTTLE IV SCH (02:03)
[2017-05-09] MEDS: PANTOPRAZOLE 40 MG VIAL IV SCH (02:03)
[2017-05-09 03:39] LABS: ABG HCO3 31.8 MMOL/L (20-26); ABG Oxygen Saturation 99.3 % (95-100); ABG PCO2 45.7 MM HG (35-48); ABG PH 7.463 (7.35-7.45); ABG TCO2 30.1 MMOL/L (23-27); Allen Test Positive; Pt O2 Delivery Device Ventilator
[2017-05-09 05:17] LABS: Basophils % 0.3 % (0.0-0.8); Eosinophils # 0.8 10*3/uL (0.0-0.87); Eosinophils % 7.3 % (0.00-10.9); Hematocrit 30.3 VOL% (35.7-47.0); Hemoglobin 9.7 GM/DL (12.0-16.0); Immature Granulocytes % 0.6 %; Immature Granulocytes Absolute 0.06 #; Lymphocytes # 1.8 10*3/uL (1.4-4.0); Lymphocytes % 17.4 % (21.3-54.2); Mean Corpuscular Hemoglobin 28 PG (27-34); Mean Corpuscular Volume 87.3 FL (87-102); Mean Platelet Volume 10.1 FL (9.6-12.0); Monocytes # 0.9 10*3/uL (0.11-0.8); Neutrophils # 6.7 10*3/uL (1.4-7.4); Neutrophils % 65.4 % (38.7-73.9); Platelet Count 340 T/CUMM (130-400); Red Blood Count 3.47 MC/CUMM (3.8-5.5); Red Cell Distribution Width 15.1 % (9.3-17.3); White Blood Count 10.3 T/CUMM (4-12)
[2017-05-09 05:58] LABS: Phosphorous 4.6 MG/DL (2.5-4.9); Prealbumin 14.9 MG/DL (20-40)
[2017-05-09 06:01] LABS: Calcium 8.7 MG/DL (8.5-10.1); Magnesium 2.3 MG/DL (1.8-2.4); Osmolality,Calculated 300.7 MOS/KG (273-304); Potassium 3.4 MMOL/L (3.5-5.1)
--- NOTE | 2017-05-09 06:53 | Cardiology Progress Note ---
Cardiology - PN: Subj Interval history: Cardiology note 76 year old woman status post third episode of pulmonary edema and another non-Q -wave [place]. Patient has severe calcified three-vessel CAD Status post atherectomy and mid LAD stent and proximal circumflex stent 1 week ago Mild chronic renal insufficiency Patient has moderate a.s./AI and mitral valve disease Gnosticism Patient completed 24 hours of CPAP Blood pressure 130/52 O2 sat 98 on 40% FiO2 Awake alert and responsive Regular rhythm with systolic ejection murmur upper right sternal border. No AI heard Decreased breath sounds few rhonchi in the right base Abdomen soft benign No leg edema Lab data today White count 10.3 hemoglobin 9.7 hematocrit 30.3 Sodium 145 potassium 3.4 chloride 106 CO2 33 BUN 44 creatinine 1.40 glucose 165 magnesium 2.3 Impression Recurrent CHF with intubation Non-Q-wave [place] Severe calcified three-vessel CAD with occluded ostial RCA Status post atherectomy and mid LAD stent and proximal circumflex stent 1 week ago At least moderate a.s./AI and mitral valve disease Gnosticism Mild chronic renal insufficiency Plan We have contacted Dr. Conway at [facility] and he has accepted the patient for transfer when a bed is available. He will call the ICU when ready for transfer. Aspirin 81 mg and Plavix 75 mg daily Carvedilol 3.125 mg twice daily Valsartan 80 mg daily Amlodipine 2.5 mg daily Continue CPAP trials. Hope to extubate soon. Exam (Progress Note) - Constitutional Vitals: Period Temp Pulse Resp BP Sys/Pina Pulse Ox Last 24 Hr 96.9 F-98.6 F 57-82 10-29 116-162/45-71 96-100 Result/EKG - Labs CBC & BMP: 05/09/17 05:03 05/09/17 05:03 Labs: Laboratory Results - last 24 hr 05/08/17 05/08/17 05/08/17 11:19 17:36 23:26 WBC RBC Hgb Hct MCV MCH MCHC RDW Plt Count MPV Neut % (Auto) Lymph % (Auto) [place] % (Auto) Eos % (Auto) Baso % (Auto) Neut # (Auto) Lymph # (Auto) [place] # (Auto) Eos # (Auto) Baso # (Auto) Immature Gran % Nucleated RBC % Immature Gran # Nucleated RBCs # ABG pH ABG pCO2 ABG pO2 ABG HCO3 ABG Total CO2 ABG O2 Saturation ABG Base Excess FiO2 Sodium Potassium Chloride Carbon Dioxide Anion Gap BUN Creatinine GFR Calculation BUN/Creatinine Ratio Glucose POC Glucose 151 H 159 H 131 H Calculated Osmolality Calcium Phosphorus Magnesium Prealbumin 05/09/17 05/09/17 05/09/17 03:20 05:03 05:03 WBC 10.3 RBC 3.47 L Hgb 9.7 L Hct 30.3 L MCV 87.3 MCH 28 MCHC 32.0 RDW 15.1 Plt Count 340 MPV 10.1 Neut % (Auto) 65.4 Lymph % (Auto) 17.4 L [place] % (Auto) 9.0 Eos % (Auto) 7.3 Baso % (Auto) 0.3 Neut # (Auto) 6.7 Lymph # (Auto) 1.8 Stark # (Auto) 0.9 H Eos # (Auto) 0.8 Baso # (Auto) 0.0 Immature Gran % 0.6 Nucleated RBC % 0.0 Immature Gran # 0.06 Nucleated RBCs # 0.00 ABG pH 7.463 H ABG pCO2 45.7 ABG pO2 151.0 H ABG HCO3 31.8 H ABG Total CO2 30.1 H ABG O2 Saturation 99.3 ABG Base Excess 8.0 H FiO2 40.00 Sodium 145 Potassium 3.4 L Chloride 106 Carbon Dioxide 33 H Anion Gap 9.4 BUN 44 H Creatinine 1.40 H GFR Calculation 34 BUN/Creatinine Ratio 31.00 H Glucose 134 H POC Glucose Calculated Osmolality 300.7 Calcium 8.7 Phosphorus Magnesium 2.3 Prealbumin 05/09/17 05/09/17 05:03 06:13 WBC RBC Hgb Hct MCV MCH MCHC RDW Plt Count MPV Neut % (Auto) Lymph % (Auto) [place] % (Auto) Eos % (Auto) Baso % (Auto) Neut # (Auto) Lymph # (Auto) [place] # (Auto) Eos # (Auto) Baso # (Auto) Immature Gran % Nucleated RBC % Immature Gran # Nucleated RBCs # ABG pH ABG pCO2 ABG pO2 ABG HCO3 ABG Total CO2 ABG O2 Saturation ABG Base Excess FiO2 Sodium Potassium Chloride Carbon Dioxide Anion Gap BUN Creatinine GFR Calculation BUN/Creatinine Ratio Glucose POC Glucose 165 H Calculated Osmolality Calcium Phosphorus 4.6 Magnesium Prealbumin 14.9 L
--- NOTE | 2017-05-09 07:43 | XRay Report ---
XR chest 1V portable Indication: Intubation Comparison: 08 May 2017 Findings: The heart and mediastinum are stable in size and configuration. The lines and tubes are unchanged in position. The pulmonary vascularity is increased with bilateral hazy lower lung density similar to previous study. No other lung infiltrates, effusions, pneumothorax or other abnormality is demonstrated. Impression: No significant change PROCEDURE INTERPRETED AT [facility] DEPARTMENT OF RADIOLOGY Final Report Signed by: Dr. Carlos Coronel
[2017-05-09] MEDS: VALSARTAN 80 MG TABLET PO SCH (08:52)
[2017-05-09] MEDS: CARVEDILOL 3.125 MG TABLET PO SCH ×2 (08:52→21:23)
[2017-05-09] MEDS: SPIRONOLACTONE 25 MG TABLET PO SCH (08:52)
[2017-05-09] MEDS: ATORVASTATIN 80 MG TABLET PO SCH (08:54)
[2017-05-09] MEDS: LANSOPRAZOLE ODT 30 MG TABLET NG SCH (08:55)
[2017-05-09] MEDS: FUROSEMIDE 40 MG/4 ML VIAL IV SCH ×2 (08:55→18:29)
[2017-05-09] MEDS: ASPIRIN CHEW 81 MG TABLET PO SCH (08:55)
[2017-05-09] MEDS: amLODIPine 2.5 MG TABLET PO SCH (08:55)
[2017-05-09] MEDS: CLOPIDOGREL 75 MG TABLET PO SCH (08:55)
[2017-05-09] MEDS: MULTIVITAMIN LIQUID (CENTRUM) 60 ML BOTTLE PO SCH (09:01)
[2017-05-09] MEDS: DESITIN 4OZ/NYSTATIN 15 GRAM MIXTURE PASTE TOP SCH ×2 (09:02→21:23)
--- NOTE | 2017-05-09 09:22 | Pulmonology Progress Note ---
Pulmonary - PN: Subj Interval history: Is a 76-year-old black female whom I saw earlier on during her last hospitalization. She had been admitted with acute congestive heart failure and respiratory failure that required intubation mechanical ventilation. She had been seen in [place] because of her valve disease which Dr. Regan describes is moderate aortic insufficiency and mild mitral regurgitation. She also had an acute IA this admission. She had total occlusion of the right coronary artery. She had a significant proximal LAD lesion which was stenosed and she had a significant circumflex lesion when there was stenosis. This patient was discharged home on 05/05/2017 was back in here on 05/06/2017 with acute congestive heart failure. Based on review of her records it appeared that she had some significant dietary salt indiscretion. This patient is a Anabaptist. Other problems include high blood pressure, diabetes mellitus type 2. Aortic stenosis. Chronic anemia. This patient never smoked. She denies alcohol. She is a Anabaptist. Chest x-ray 05/08/2017. Congestive heart failure with bilateral pleural effusions and increased interstitial edema. 05/08/2017. ABGs on FiO2 40% mechanical ventilation shows a pH 7.51, PCO2 38, PO2 143 and a bicarb of 31. 05/08/2017. Lab. Electrolytes are normal. Creatinine is 1.60. BUN is 35. Most recent alkaline Gregorio was elevated 330. AST was 56 which is elevated and ALT was normal at 49. Total bilirubin was 0.80. Troponins have been as high as 8.0. Last nitrated peptide was greater than 5000 05/09/2017. Patient's chest x-ray shows that she still has congestive heart failure bilateral pleural effusions increased interstitial markings. This is a little better than before. Patient has advanced where she is on CPAP around the clock. Tomorrow morning at 5:00 will go with a T-tube and check her blood gases in 2 hours and if she looks good and her chest x-ray continues to improve there is a good chance we can extubate her. ABGs on mechanical ventilation FiO2 40% shows a pH 7.46, PCO2 45.7, PO2 151, bicarb 31.8. Potassium is 3.4 sodium 145 creatinine 1.4 BUN 44 CBC is stable white count is dropped to 10,300 with 65 segs 17 lymphs. Overall the patient is much stronger. Microbiology. No positive cultures Physical exam. Vital signs see below. Psychiatric. Alert oriented cooperative. Face. Symmetrical. No edema of the lips or tongue. Neck. No meningismus. Chest. [place]ales Heart. Lateral PMI Abdomen. Nondistended. Positive bowel sounds Extremities. Nothing to suggest deep venous thrombophlebitis. Neurologic. Cranial nerves are intact. Patient moves all 4 extremities. Lymphatics. No submandibular cervical supraclavicular or epitrochlear adenopathy. Plan. 05/08/2017 1. Weaning protocol. Stage II today. Advance as tolerated. As soon as this patient's congestive heart failure is resolved she should be easily extubated 2. Physical therapy protocol 3. Daily lab ABGs chest x-ray 4. See orders 05/09/2017. 1. See today's note above 2. T-tube in the morning and ABGs to follow. Possible extubation tomorrow. 3. Chest x-ray remains in congestive heart failure but is improved Exam (Progress Note) - Constitutional Vitals: Period Temp Pulse Resp BP Sys/Pina Pulse Ox Last 24 Hr 96.9 F-99.2 F 57-75 15-29 116-159/45-67 61-100 Results - Labs CBC & BMP: 05/09/17 05:03 05/09/17 05:03
[2017-05-09] MEDS ORDERED: POTASSIUM CHLORIDE 20 MEQ TABLET PO ONE (11:20)
--- NOTE | 2017-05-09 11:21 | Hospitalist Progress Note ---
Assessment and Plan (1) Congestive heart failure Status: Chronic Assessment and plan: 1)recurrent CHF and NSTEMI with flash pulmonary edema, valve disease- She has recurrent episodes of acute resp failure requiring intubation and has not been able to exist outside the hospital for more than a few days over the last months. She will go to [facility] when they have a bed available. In the meantime continue medical treatment and diuresis. aldactone, norvasc, hydralazine, diovan, coreg, plavix, aspirin, lasix. last troponin 8. 2)acute resp failure- comfortable on vent. HOpe to extubate tomorrow. 3)DM- monitor accuchecks, SSI. On tube feeds. 4)hypokalemia- replace. Current Visit: No Qualifiers: Congestive heart failure type: combined Congestive heart failure chronicity : acute on chronic Qualified Code(s): I50.43 - Acute on chronic combined systolic (congestive) and diastolic (congestive) heart failure (2) Essential hypertension Status: Chronic Current Visit: No (3) Coronary artery disease Status: Chronic Current Visit: No Qualifiers: Coronary Disease-Associated Artery/Lesion type: [place] artery [place] vs. transplanted heart: [place] heart Associated angina: without angina Qualified Code(s): I25.10 - Atherosclerotic heart disease of [place] coronary artery without angina pectoris (4) Mitral regurgitation Status: Chronic Current Visit: Yes Qualifiers: Cardiac valve disease etiology: nonrheumatic Qualified Code(s): I34.0 - Nonrheumatic mitral (valve) insufficiency (5) Biatrial enlargement Status: Chronic Current Visit: No (6) Aortic stenosis Status: Chronic Current Visit: No (7) Chronic kidney disease (CKD) Status: Chronic Current Visit: No Qualifiers: Chronic kidney disease stage: stage 3 (moderate) Qualified Code(s): N18.3 - Chronic kidney disease, stage 3 (moderate) Hospitalist: Subjective Interval history: Mrs Moscoso is doing very well sitting up in the chair on the vent. She is doing CPAP very well and will continue until tomorrow morning then try ttube and likely extubation. She wants coffee both for the taste and her usual caffeine. Denies pain or shortness of breath. Tolerating tube feeds. Exam - Constitutional Vitals: Period Temp Pulse Resp BP Sys/Pina Pulse Ox Last 24 Hr 96.9 F-99.2 F 57-75 15-26 109-159/45-67 61-100 General appearance: normal weight, no acute distress - Eye Eye exam: Present: EOMI. Absent: scleral icterus - Respiratory Respiratory exam: Present: clear to auscultation bilaterally - Cardiovascular Cardiovascular exam: Present: regular rate and rhythm - GI/Abdominal GI/Abdominal exam: Present: normal bowel sounds, soft - Extremities Exam Extremities exam: Absent: edema - Neurological Exam Neurological exam: Present: alert, oriented X3 (writing notes on paper to answer my questions. ) - Skin Skin exam: Present: warm, dry Results - Labs CBC & BMP: 05/09/17 05:03 05/09/17 05:03 Lab Results: I have reviewed the past 24 hour labs
[2017-05-09] MEDS: MORPHINE 2 MG/1 ML SYRINGE IV PRN (22:55)
[2017-05-10 04:21] LABS: ABG Base Excess 7.8 MMOL/L (-2.5-2.5); ABG HCO3 32.2 MMOL/L (20-26); ABG Oxygen Saturation 98.8 % (95-100); ABG PCO2 45.2 MM HG (35-48); ABG PH 7.471 (7.35-7.45); ABG PO2 176.7 MM HG (80-95); ABG TCO2 33.6 MMOL/L (23-27); Pt O2 Delivery Device Ventilator
[2017-05-10 05:25] LABS: White Blood Count 9.9 T/CUMM (4-12)
[2017-05-10 05:26] LABS: Basophils % 0.1 % (0.0-0.8); Eosinophils # 0.8 10*3/uL (0.0-0.87); Eosinophils % 7.8 % (0.00-10.9); Hematocrit 29.3 VOL% (35.7-47.0); Hemoglobin 9.2 GM/DL (12.0-16.0); Immature Granulocytes % 0.6 %; Immature Granulocytes Absolute 0.06 #; Lymphocytes # 1.6 10*3/uL (1.4-4.0); Lymphocytes % 16.2 % (21.3-54.2); Mean Corpuscular HGB Conc 31.4 GM/DL (32-36); Mean Corpuscular Hemoglobin 28 PG (27-34); Mean Corpuscular Volume 87.5 FL (87-102); Mean Platelet Volume 9.9 FL (9.6-12.0); Monocytes # 1.1 10*3/uL (0.11-0.8); Monocytes % 11.5 % (1.7-12.7); Neutrophils # 6.3 10*3/uL (1.4-7.4); Neutrophils % 63.8 % (38.7-73.9); Platelet Count 314 T/CUMM (130-400); Red Blood Count 3.35 MC/CUMM (3.8-5.5); Red Cell Distribution Width 14.8 % (9.3-17.3)
[2017-05-10 05:49] LABS: Calcium 8.1 MG/DL (8.5-10.1); Magnesium 2.6 MG/DL (1.8-2.4); Osmolality,Calculated 303.7 MOS/KG (273-304); Potassium 3.9 MMOL/L (3.5-5.1)
--- NOTE | 2017-05-10 06:27 | Cardiology Progress Note ---
Cardiology - PN: Subj Interval history: Cardiology note 76-year-old woman status post third episode pulmonary edema and another non-Q- wave [place]. Patient has severe calcified three-vessel CAD. Status post atherectomy and mid LAD stent and proximal circumflex stent 1 week ago Mild chronic renal insufficiency Patient has moderate a.s./AI and mitral valve disease Worship Patient completed 24 hours of CPAP yesterday. Has been on T-tube since 5 AM this morning Chest x-ray shows cardiomegaly with CHF and a calcified aortic knob Awake alert and pleasant Telemetry shows sinus rhythm in the 70s O2 sat 100 on 40% FiO2 Blood pressure 120/58 Regular rhythm with systolic ejection murmur upper right sternal border no AI heard Decreased breath sounds few basilar crackles Abdomen soft benign No leg edema Lab data today White count 9.9 hemoglobin 9.2 hematocrit 29.3 Sodium 145 potassium 3.9 chloride 106 CO2 33 BUN 58 creatinine 1.40 glucose 98 magnesium 2.6 Impression Recurrent CHF with intubation Non-Q-wave [place] Severe calcified three-vessel CAD with occluded ostial RCA Status post antrectomy and mid LAD stent and proximal circumflex stent 1 week ago At least moderate a.s. /AI and mitral valve disease Worship Mild chronic renal insufficiency Plan Continue T-tube 40 mg IV Lasix Aspirin 81 mg and Plavix 75 mg daily Carvedilol 3.125 mg twice daily Valsartan 80 mg daily Amlodipine 2.5 mg daily Exam (Progress Note) - Constitutional Vitals: Period Temp Pulse Resp BP Sys/Pina Pulse Ox Last 24 Hr 98.6 F-99.2 F 59-76 15-24 101-159/41-65 61-100 Result/EKG - Labs CBC & BMP: 05/10/17 05:16 05/10/17 05:16 Labs: Laboratory Results - last 24 hr 05/09/17 05/09/17 05/09/17 11:34 18:13 23:09 WBC RBC Hgb Hct MCV MCH MCHC RDW Plt Count MPV Neut % (Auto) Lymph % (Auto) [place] % (Auto) Eos % (Auto) Baso % (Auto) Neut # (Auto) Lymph # (Auto) [place] # (Auto) Eos # (Auto) Baso # (Auto) Immature Gran % Nucleated RBC % Immature Gran # Nucleated RBCs # ABG pH ABG pCO2 ABG pO2 ABG HCO3 ABG Total CO2 ABG O2 Saturation ABG Base Excess FiO2 Sodium Potassium Chloride Carbon Dioxide Anion Gap BUN Creatinine GFR Calculation BUN/Creatinine Ratio Glucose POC Glucose 146 H 188 H 161 H Calculated Osmolality Calcium Magnesium 05/10/17 05/10/17 05/10/17 03:43 05:16 05:16 WBC 9.9 RBC 3.35 L Hgb 9.2 L Hct 29.3 L MCV 87.5 MCH 28 MCHC 31.4 L RDW 14.8 Plt Count 314 MPV 9.9 Neut % (Auto) 63.8 Lymph % (Auto) 16.2 L [place] % (Auto) 11.5 Eos % (Auto) 7.8 Baso % (Auto) 0.1 Neut # (Auto) 6.3 Lymph # (Auto) 1.6 [place] # (Auto) 1.1 H Eos # (Auto) 0.8 Baso # (Auto) 0.0 Immature Gran % 0.6 Nucleated RBC % 0.0 Immature Gran # 0.06 Nucleated RBCs # 0.00 ABG pH 7.471 H ABG pCO2 45.2 ABG pO2 176.7 H ABG HCO3 32.2 H ABG Total CO2 33.6 H ABG O2 Saturation 98.8 ABG Base Excess 7.8 H FiO2 40.00 Sodium 145 Potassium 3.9 Chloride 106 Carbon Dioxide 33 H Anion Gap 9.9 BUN 58 H Creatinine 1.40 H GFR Calculation 33 BUN/Creatinine Ratio 41.00 H Glucose 98 POC Glucose Calculated Osmolality 303.7 Calcium 8.1 L Magnesium 2.6 H
--- NOTE | 2017-05-10 06:57 | XRay Report ---
XR chest 1V portable Indication: Intubation Comparison: 09 May 2017 Findings: The heart and mediastinum are stable in size and configuration. The lines and tubes are unchanged in position. The pulmonary vascularity is increased with interstitial pulmonary density may be slightly improved. No lung infiltrates, effusions, pneumothorax or other abnormality is demonstrated. Impression: Slight improvement of cardiac decompensation. No other interval changes. PROCEDURE INTERPRETED AT [facility] DEPARTMENT OF RADIOLOGY Final Report Signed by: Dr. Carlos Coronel
[2017-05-10 07:03] LABS: ABG Base Excess 7.2 MMOL/L (-2.5-2.5); ABG Oxygen Saturation 98.5 % (95-100); ABG PCO2 48.2 MM HG (35-48); ABG PH 7.436 (7.35-7.45); ABG TCO2 29.8 MMOL/L (23-27); Allen Test Positive
[2017-05-10] MEDS: INSULIN REGULAR 100 UNIT/ML SUBCUT SCH ×3 (07:59→17:41)
[2017-05-10] MEDS: PROPOFOL 1,000 MG/100 ML BOTTLE IV SCH (07:59)
[2017-05-10] MEDS: FUROSEMIDE 40 MG/4 ML VIAL IV SCH ×2 (09:03→16:57)
[2017-05-10] MEDS: VALSARTAN 80 MG TABLET PO SCH (09:04)
[2017-05-10] MEDS: ATORVASTATIN 80 MG TABLET PO SCH (09:04)
[2017-05-10] MEDS: CLOPIDOGREL 75 MG TABLET PO SCH (09:04)
[2017-05-10] MEDS: ASPIRIN CHEW 81 MG TABLET PO SCH (09:04)
[2017-05-10] MEDS: LANSOPRAZOLE ODT 30 MG TABLET NG SCH (09:04)
[2017-05-10] MEDS: amLODIPine 2.5 MG TABLET PO SCH (09:04)
[2017-05-10] MEDS: MULTIVITAMIN LIQUID (CENTRUM) 60 ML BOTTLE PO SCH (09:05)
[2017-05-10] MEDS: CARVEDILOL 3.125 MG TABLET PO SCH ×2 (09:05→20:00)
[2017-05-10] MEDS: DESITIN 4OZ/NYSTATIN 15 GRAM MIXTURE PASTE TOP SCH (09:05)
[2017-05-10] MEDS: SPIRONOLACTONE 25 MG TABLET PO SCH (09:05)
--- NOTE | 2017-05-10 09:48 | Hospitalist Progress Note ---
Assessment and Plan (1) Congestive heart failure Status: Chronic Assessment and plan: 1)recurrent CHF and NSTEMI with flash pulmonary edema, valve disease- She has recurrent episodes of acute resp failure requiring intubation and has not been able to exist outside the hospital for more than a few days over the last months. She will go to [facility] when they have a bed available. In the meantime continue medical treatment and diuresis. aldactone, norvasc, hydralazine, diovan, coreg, plavix, aspirin, lasix. last troponin 8. 2)acute resp failure- extubated. 3)DM- monitor accuchecks, SSI. resuming diabetic diet today. 4)hypokalemia- replaced. Current Visit: No Qualifiers: Congestive heart failure type: combined Congestive heart failure chronicity : acute on chronic Qualified Code(s): I50.43 - Acute on chronic combined systolic (congestive) and diastolic (congestive) heart failure (2) Essential hypertension Status: Chronic Current Visit: No (3) Coronary artery disease Status: Chronic Current Visit: No Qualifiers: Coronary Disease-Associated Artery/Lesion type: [place] artery [place] vs. transplanted heart: [place] heart Associated angina: without angina Qualified Code(s): I25.10 - Atherosclerotic heart disease of [place] coronary artery without angina pectoris (4) Mitral regurgitation Status: Chronic Current Visit: Yes Qualifiers: Cardiac valve disease etiology: nonrheumatic Qualified Code(s): I34.0 - Nonrheumatic mitral (valve) insufficiency (5) Biatrial enlargement Status: Chronic Current Visit: No (6) Aortic stenosis Status: Chronic Current Visit: No (7) Chronic kidney disease (CKD) Status: Chronic Current Visit: No Qualifiers: Chronic kidney disease stage: stage 3 (moderate) Qualified Code(s): N18.3 - Chronic kidney disease, stage 3 (moderate) Hospitalist: Subjective Interval history: Mrs Moscoso continues to do well. She was extubated just after I saw her this morning and has done well since. Plan to advance diet gradually today as she tolerates it. Exam - Constitutional Vitals: Period Temp Pulse Resp BP Sys/Pina Pulse Ox Last 24 Hr 98.6 F-99.2 F 60-77 10-29 101-144/41-67 96-100 General appearance: normal weight, no acute distress - Eye Eye exam: Present: EOMI. Absent: scleral icterus - Respiratory Respiratory exam: Present: clear to auscultation bilaterally - GI/Abdominal GI/Abdominal exam: Present: normal bowel sounds, soft. Absent: tenderness - Extremities Exam Extremities exam: Absent: edema - Neurological Exam Neurological exam: Present: alert, oriented X3 - Psychiatric Psychiatric exam: Present: normal affect, normal mood Results - Labs CBC & BMP: 05/10/17 05:16 05/10/17 05:16 Lab Results: I have reviewed the past 24 hour labs
--- NOTE | 2017-05-10 10:20 | Pulmonology Progress Note ---
Pulmonary - PN: Subj Interval history: Is a 76-year-old black female whom I saw earlier on during her last hospitalization. She had been admitted with acute congestive heart failure and respiratory failure that required intubation mechanical ventilation. She had been seen in [place] because of her valve disease which Dr. Regan describes is moderate aortic insufficiency and mild mitral regurgitation. She also had an acute [place] this admission. She had total occlusion of the right coronary artery. She had a significant proximal LAD lesion which was stenosed and she had a significant circumflex lesion when there was stenosis. This patient was discharged home on 05/05/2017 was back in here on 05/06/2017 with acute congestive heart failure. Based on review of her records it appeared that she had some significant dietary salt indiscretion. This patient is a Yazidi. Other problems include high blood pressure, diabetes mellitus type 2. Aortic stenosis. Chronic anemia. This patient never smoked. She denies alcohol. She is a Yazidi. Chest x-ray 05/08/2017. Congestive heart failure with bilateral pleural effusions and increased interstitial edema. 05/08/2017. ABGs on FiO2 40% mechanical ventilation shows a pH 7.51, PCO2 38, PO2 143 and a bicarb of 31. 05/08/2017. Lab. Electrolytes are normal. Creatinine is 1.60. BUN is 35. Most recent alkaline Gregorio was elevated 330. AST was 56 which is elevated and ALT was normal at 49. Total bilirubin was 0.80. Troponins have been as high as 8.0. Last nitrated peptide was greater than 5000 05/09/2017. Patient's chest x-ray shows that she still has congestive heart failure bilateral pleural effusions increased interstitial markings. This is a little better than before. Patient has advanced where she is on CPAP around the clock. Tomorrow morning at 5:00 will go with a T-tube and check her blood gases in 2 hours and if she looks good and her chest x-ray continues to improve there is a good chance we can extubate her. ABGs on mechanical ventilation FiO2 40% shows a pH 7.46, PCO2 45.7, PO2 151, bicarb 31.8. Potassium is 3.4 sodium 145 creatinine 1.4 BUN 44 CBC is stable white count is dropped to 10,300 with 65 segs 17 lymphs. Overall the patient is much stronger. 05/10/2017. Patient's chest x-ray shows improvement in her congestive heart failure. ABGs on a T-tube for 2 hours with an FiO2 40% show pH 7.44 PCO2 48 PO2 102 and a bicarb of 31. Patient looks strong this morning I have extubated her and she is doing very well. We are waiting for follow-up blood gases. Electrolytes are normal. Creatinine is 1.4 with a BUN of 58. CBC is stable Microbiology. No positive cultures Physical exam. Vital signs see below. Psychiatric. Alert oriented cooperative. Face. Symmetrical. No edema of the lips or tongue. Neck. No meningismus. Chest. Rales Heart. Lateral PMI Abdomen. Nondistended. Positive bowel sounds Extremities. Nothing to suggest deep venous thrombophlebitis. Neurologic. Cranial nerves are intact. Patient moves all 4 extremities. Lymphatics. No submandibular cervical supraclavicular or epitrochlear adenopathy. Plan. 05/08/2017 1. Weaning protocol. Stage II today. Advance as tolerated. As soon as this patient's congestive heart failure is resolved she should be easily extubated 2. Physical therapy protocol 3. Daily lab ABGs chest x-ray 4. See orders 05/09/2017. 1. See today's note above 2. T-tube in the morning and ABGs to follow. Possible extubation tomorrow. 3. Chest x-ray remains in congestive heart failure but is improved 05/10/2017. 1. See today's note above number 2. Extubated earlier today. 3. Follow-up chest x-ray and ABG Exam (Progress Note) - Constitutional Vitals: Period Temp Pulse Resp BP Sys/Pina Pulse Ox Last 24 Hr 98.6 F-99.2 F 60-77 10-29 101-144/41-67 96-100 Results - Labs CBC & BMP: 05/10/17 05:16 05/10/17 05:16
[2017-05-10 12:06] LABS: ABG HCO3 32.6 MMOL/L (20-26); ABG Oxygen Saturation 88.9 % (95-100); ABG PCO2 45.7 MM HG (35-48); ABG PH 7.471 (7.35-7.45); ABG PO2 52.2 MM HG (80-95)
[2017-05-10 18:06] VITALS: BP 143/56
--- NOTE | 2017-05-10 18:10 | Discharge Summary ---
<Heath Peralta - Last Filed: 05/10/17 18:15> Hospital Course - Hospital Course Hospital Course: This is a very chronically ill 76-year-old female that presented to the ED at [facility] as a lateral transfer from the [facility] for the evaluation of shortness of breath and chest pain. Patient has a very complex medical history significant for diabetes mellitus, congestive heart failure, myocardial infarction(non-Stemi), and hypertension. The patient has a surgical history significant for cardiac stent placement on May 03, 2017. The patient had been recently discharged from [facility] on May 06, 2017 after a subsequent admission for acute respiratory failure secondary to congestive heart failure, coronary artery disease. During the clinical encounter, the patient underwent percutaneous coronary intervention with stent placements of the mid LAD and proximal circumflex. The patient recovered well and was discharged the morning of May 06, 2017. The patient returned home without incident. Later on the afternoon of May 06, 2017, the patient was eating fried chicken with her and became acutely short of breath. Her immediately called for emergency assistance. The patient was placed on CPAP by EMS in the field and transported to [facility] for further evaluation. The patient was assessed immediately at the time of ED presentation. Initial ABG was obtained on CPAP which included a pH of 7.39, CO2 32.3, PO2 75, and HCO3 at 24.4. In addition, the patient was noted to have a creatinine of 1.96, BUN 40, glucose 197, AST 90 , ALT 76, alkaline phosphatase 456, pro BNP greater than 5000, CK-MB 6.1, and troponin was noted at 0.040. Complete blood count reported the patient's white blood cell count at 16.5, hemoglobin 10.6, hematocrit 33, and INR was noted at 1.1.The patient was given intravenous diuretics however,the patient's respiratory status continued to decline. The patient was electively intubated for airway protection and placed on mechanical ventilation. Empiric antibiotic coverage was initiated. The patient was subsequently admitted to the hospitalist service for continuation of care. Pulmonology and cardiology consultations were immediately requested at the time of admission. The patient was transferred to the critical care unit for continuation of care. Aggressive IV diuresis continued. The patient's condition gradually improved. The patient extubated on May 10, 2017. The attending compliance consultant contacted the staff at the [facility] regarding possible transfer for the further evaluation of the patient's valvular heart disease. The critical care staff was notified this afternoon regarding the bed availability for transfer. The patient is appropriate for transfer to the [facility] for continuation of care. I have seen and examined Mrs Moscoso and arranged her transfer to [facility]. I talked to Dr Conway the evening of transfer to give him updated information on her condition. I agree with the summary above. Discharge Plan - Discharge Data Disposition: Disch/Xfer-Ipshort Term Hos - Discharge Medications New Albuterol Neb [Proventil Neb] 2.5 mg RESP TX RT Q1H PRN PRN Reason: Shortness Of Breath/Wheezing Aspirin Chew Tab 81 mg PO DAILY tablet Atorvastatin [Lipitor] 80 mg PO DAILY tablet Carvedilol [Coreg] 3.125 mg PO BID tablet Clopidogrel [Plavix] 75 mg PO DAILY tablet Dextrose 50% [D50] 25 gm IV PRN PRN vial PRN Reason: Hypoglycemia with IV access Furosemide Inj [Lasix Inj] 80 mg IV BID DIURETIC vial hydrALAZINE INJ [Apresoline Inj] 10 mg IV Q6H PRN vial PRN Reason: Hypertension Insulin Regular [HumuLIN R] See Protocol SUBCUT Q6HR unit Spironolactone [Aldactone] 25 mg PO DAILY tablet amLODIPine [Norvasc] 2.5 mg PO DAILY tablet Glucagon 1 mg IM PRN PRN vial PRN Reason: Hypoglycemia w/o IV access Valsartan [Diovan] 40 mg PO DAILY tablet Continue Ofloxacin 0.3% Oph Soln [Ocuflox 0.3% Oph Soln] 1 drop LEFT EYE QID Pantoprazole Tab [Protonix Tab] 40 mg PO DAILY #30 tablet Multivit,Iron,Mins/Folic Acid [Centrum Specialist Heart Tab] 1 each PO DAILY Discontinued Polyvinyl Alcohol [Artificial Tears] 1 ml BOTH EYES QID PRN PRN Reason: Dry Eyes Carvedilol [Coreg] 12.5 mg PO BID #120 tablet glyBURIDE [Diabeta] 2.5 mg PO BID W/MEALS tablet Isosorbide Mononitrate [Imdur] 30 mg PO DAILY Ampicillin Cap 500 mg PO BID #10 capsule Aspirin Chew Tab 81 mg PO DAILY tablet Furosemide Tab [Lasix Tab] 40 mg PO BID #60 Atorvastatin [Lipitor] 80 mg PO BEDTIME #60 tablet Clopidogrel [Plavix] 75 mg PO DAILY Sitagliptin Phosphate [Januvia] 50 mg PO BEDTIME Losartan [Cozaar] 100 mg PO DAILY #0 - Follow Up or Referral - Forms/Instructions Exam - Constitutional Vitals: Period Temp Pulse Resp BP Sys/Pina Pulse Ox Last 24 Hr 97.6 F-99.2 F 60-77 10-29 99-155/44-83 93-100 Discharge Results Procedures and tests throughout hospitalization: Pending Orders 05/11/17 04:00 XR chest 1V portable IN AM ABG [Arterial Blood Gas] IN AM 05/12/17 04:00 Magnesium Routine Phosphorous Routine Prealbumin Routine Labs on day of discharge: Labs from last 24 hours 05/10/17 05/10/17 05/10/17 Unknown 17:39 11:42 WBC RBC Hgb Hct MCV MCH MCHC RDW Plt Count MPV Neut % (Auto) Lymph % (Auto) [place] % (Auto) Eos % (Auto) Baso % (Auto) Neut # (Auto) Lymph # (Auto) [place] # (Auto) Eos # (Auto) Baso # (Auto) Immature Gran % Nucleated RBC % Immature Gran # Nucleated RBCs # ABG pH 7.471 H ABG pCO2 45.7 ABG pO2 52.2 L ABG HCO3 32.6 H ABG Total CO2 34.0 H ABG O2 Saturation 88.9 L ABG Base Excess 8.0 H FiO2 Sodium Potassium Chloride Carbon Dioxide Anion Gap BUN Creatinine GFR Calculation BUN/Creatinine Ratio Glucose POC Glucose 249 H 141 H Calculated Osmolality Calcium Magnesium 05/10/17 05/10/17 05/10/17 07:00 06:21 05:16 WBC RBC Hgb Hct MCV MCH MCHC RDW Plt Count MPV Neut % (Auto) Lymph % (Auto) [place] % (Auto) Eos % (Auto) Baso % (Auto) Neut # (Auto) Lymph # (Auto) [place] # (Auto) Eos # (Auto) Baso # (Auto) Immature Gran % Nucleated RBC % Immature Gran # Nucleated RBCs # ABG pH 7.436 ABG pCO2 48.2 H ABG pO2 102.0 H ABG HCO3 31.0 H ABG Total CO2 29.8 H ABG O2 Saturation 98.5 ABG Base Excess 7.2 H FiO2 40.00 Sodium 145 Potassium 3.9 Chloride 106 Carbon Dioxide 33 H Anion Gap 9.9 BUN 58 H Creatinine 1.40 H GFR Calculation 33 BUN/Creatinine Ratio 41.00 H Glucose 98 POC Glucose 138 H Calculated Osmolality 303.7 Calcium 8.1 L Magnesium 2.6 H 05/10/17 05/10/17 05/09/17 05:16 03:43 23:09 WBC 9.9 RBC 3.35 L Hgb 9.2 L Hct 29.3 L MCV 87.5 MCH 28 MCHC 31.4 L RDW 14.8 Plt Count 314 MPV 9.9 Neut % (Auto) 63.8 Lymph % (Auto) 16.2 L [place] % (Auto) 11.5 Eos % (Auto) 7.8 Baso % (Auto) 0.1 Neut # (Auto) 6.3 Lymph # (Auto) 1.6 [place] # (Auto) 1.1 H Eos # (Auto) 0.8 Baso # (Auto) 0.0 Immature Gran % 0.6 Nucleated RBC % 0.0 Immature Gran # 0.06 Nucleated RBCs # 0.00 ABG pH 7.471 H ABG pCO2 45.2 ABG pO2 176.7 H ABG HCO3 32.2 H ABG Total CO2 33.6 H ABG O2 Saturation 98.8 ABG Base Excess 7.8 H FiO2 40.00 Sodium Potassium Chloride Carbon Dioxide Anion Gap BUN Creatinine GFR Calculation BUN/Creatinine Ratio Glucose POC Glucose 161 H Calculated Osmolality Calcium Magnesium 05/09/17 18:13 WBC RBC Hgb Hct MCV MCH MCHC RDW Plt Count MPV Neut % (Auto) Lymph % (Auto) [place] % (Auto) Eos % (Auto) Baso % (Auto) Neut # (Auto) Lymph # (Auto) [place] # (Auto) Eos # (Auto) Baso # (Auto) Immature Gran % Nucleated RBC % Immature Gran # Nucleated RBCs # ABG pH ABG pCO2 ABG pO2 ABG HCO3 ABG Total CO2 ABG O2 Saturation ABG Base Excess FiO2 Sodium Potassium Chloride Carbon Dioxide Anion Gap BUN Creatinine GFR Calculation BUN/Creatinine Ratio Glucose POC Glucose 188 H Calculated Osmolality Calcium Magnesium DS: Provider Date of admission: 05/06/17 00:46 Primary care physician: Adam Juárez MD Attending physician on admission: Víctor Tan MD Consults: 05/06/17 01:59 Consult to Physician [CONS] Routine Comment: resp. failure. 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 Provider: Shalom Contreras Consult to Specialist Group: Pulmonology When should Consulting Provider be notified: In am Person Notified: Dr Contreras Date Notified: 05/06/17 Consult Notification Comment: notified of consult 05/06/17 02:00 Consult to Physician [CONS] Routine Comment: recent PCI 05/03/17 Consulting Provider: Cardiology - CIS Consult to Specialist Group: Cardiology When should Consulting Provider be notified: In am Person Notified: Dr Medley Date Notified: 05/06/17 Time Notified: 07:00 Consult Notification Comment: notified of consult 05/06/17 13:51 Consult to Dietitian [CONS] Routine Reason for Dietitian: TF-Initiate/Manage 05/10/17 12:46 Consult to Physical Therapy [CONS] Routine Reason for Physical Therapy: Evaluate and Treat Start Therapy: Today Consult Comment: per early mobility protocol. extubated today. Discharging clinician: Heath Peralta CNP <Lori Ozuna - Last Filed: 05/11/17 13:56> Hospital Course - Time spent with patient Time with patient DS: Greater than 30 minutes (45 minutes spent on exam, care coordination, discharge planning, medicine reconciliation, documentation) Diagnosis - Discharge Diagnosis (1) Congestive heart failure Status: Chronic (2) Essential hypertension Status: Chronic (3) Coronary artery disease Status: Chronic (4) Mitral regurgitation Status: Chronic (5) Biatrial enlargement Status: Chronic (6) Aortic stenosis Status: Chronic (7) Chronic kidney disease (CKD) Status: Chronic Discharge Plan - Discharge Data Condition at Discharge: Guarded Discharge Diet: diabetic diet, heart healthy Activity: as per physical therapy, wear oxygen at all times Exam - Constitutional General appearance: normal weight, no acute distress - Eye Eye exam: Present: EOMI, scleral icterus - Respiratory Respiratory exam: Present: clear to auscultation bilaterally - Cardiovascular Cardiovascular exam: Present: irregular rhythm - GI/Abdominal GI/Abdominal exam: Present: normal bowel sounds - Neurological Exam Neurological exam: Present: alert, oriented X3
== END 2017-05-10 20:00 | disposition hospice, home (50) | DRG 207 ==
LOC: EDUNIT# → EDBD → N.ED 21:16 → SUATTDRO 05-06 00:46 → N.EDINP 05-06 00:46 → N.ICU 05-06 01:20
PROVIDERS: ADMIT Family Medicine; ATTEND Internal Medicine

== ENCOUNTER 2017-06-23 23:55 | Inpatient (IN) ==
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
[2017-06-24 01:47] LABS: Basophils % 0.1 % (0.0-0.8); Eosinophils # 0.1 10*3/uL (0.0-0.87); Eosinophils % 1.4 % (0.00-10.9); Hematocrit 26.7 VOL% (35.7-47.0); Hemoglobin 8.8 GM/DL (12.0-16.0); Immature Granulocytes % 0.3 %; Immature Granulocytes Absolute 0.03 #; Lymphocytes # 1.6 10*3/uL (1.4-4.0); Lymphocytes % 17.6 % (21.3-54.2); Mean Corpuscular Hemoglobin 29 PG (27-34); Mean Corpuscular Volume 87.8 FL (87-102); Mean Platelet Volume 10.2 FL (9.6-12.0); Monocytes # 0.6 10*3/uL (0.11-0.8); Neutrophils # 6.5 10*3/uL (1.4-7.4); Neutrophils % 73.6 % (38.7-73.9); Platelet Count 288 T/CUMM (130-400); Red Blood Count 3.04 MC/CUMM (3.8-5.5); Red Cell Distribution Width 16.3 % (9.3-17.3); White Blood Count 8.9 T/CUMM (4-12)
[2017-06-24 02:25] LABS: Alanine Aminotransferase 32 U/L (13-56); Albumin 3.2 G/DL (3.4-5.0); Alkaline Phosphatase 94 U/L (45-117); Aspartate Amino Transferase 25 U/L (0-37); Bilirubin,Total < 0.39 MG/DL (0.2-1.0); Blood Urea Nitrogen 102 MG/DL (7-18); Glucose 96 MG/DL (74-106); Osmolality,Calculated 297.4 MOS/KG (273-304); Potassium 5.9 MMOL/L (3.5-5.1); Sodium 133 MMOL/L (136-145); Total Protein 7.6 G/DL (6.4-8.3)
[2017-06-24 02:27] LABS: Troponin I Only 0.319 NG/ML (0.00-0.045)
[2017-06-24 03:41] LABS: Apearance,Urine Slightly Hazy (Clear); Bacteria,Urine Occasional /HPF (Few); Bilirubin,Urine Negative (Negative); Blood, Urine Negative (Negative); Glucose,Urine (UA) Negative (Negative); Hyaline Casts,Urine 1 /LPF (0-3); Ketones,Urine Negative (Negative); Nitrite,Urine Negative (Negative); Protein,Urine 30 MG/DL; Squamous Epithelial Cell,Urine Occasional /HPF (0-10); Urine Color Yellow (Yellow); Urine Specific Gravity 1.009 (1.001-1.035); Urine Urobilinogen < 2.0 EU/DL (0.2-1.0)
--- NOTE | 2017-06-24 04:30 | EKG Report ---
Stationary ECG Study [facility] ER Test Date: 06/24/2017 4:28:57 AM Pat Name: THADDEUS AN Department: Room: Gender: F [employer]or: : 1940 Requested by: Gunnar Morocho Order Number: [id number] Reading MD: MCKAY WEBER Intervals [place] Rate: 118 P: 60 WV: 243 QRS: -55 QRSD: 161 T: 112 QT: 378 QTc: 448 Interpretive Statements Atrial fib with rapid ventricular response INTRAVENTRICULAR CONDUCTION DELAY Consider INFERIOR MYOCARDIAL INFARCTION, age indeterminate Electronically Signed On 06-24-17 12:28:10 CDT by MCKYA WEBER [email or web address]
[2017-06-24] MEDS ORDERED: GLUCAGON 1 MG VIAL IM PRN ×2 (05:32)
[2017-06-24] MEDS ORDERED: FUROSEMIDE 40 MG/4 ML VIAL IV SCH ×2 (05:32→08:00)
[2017-06-24] MEDS ORDERED: ACETAMINOPHEN 325 MG TABLET PO PRN (05:32)
[2017-06-24] MEDS ORDERED: DEXTROSE 50% 25 GM/50 ML SYRINGE IV PRN (05:32)
--- NOTE | 2017-06-24 05:39 | Hospitalist History & Physical ---
Assessment and Plan (1) Acute on chronic systolic heart failure Status: Acute Assessment and plan: She has had worsening edema, dyspnea on exertion, orthopnea since stopping Lasix several days ago. She has marked JVD, base basilar rales and chest x-ray consistent with heart failure. She normally takes Lasix 40 mg and with her elevated creatinine will dose 80 twice a day. Insert Melchor to monitor urine output to assess response. Current Visit: Yes (2) Atrial fibrillation with RVR Status: Acute Assessment and plan: I discussed this with Dr. Kirkpatrick who will see the patient in the morning. We will give some IV metoprolol to slow the rate some. Dr. Kirkpatrick should be seeing her fairly soon this morning. Current Visit: Yes (3) Hyperkalemia Status: Acute Assessment and plan: She was on spironolactone, valsartan, and potassium 20 mEq twice daily. These will all be held. With the IV furosemide her potassium should come down fairly quickly. Current Visit: Yes (4) Acute on chronic renal failure Status: Acute Assessment and plan: She clearly is in heart failure. This has worsened over the past couple weeks as has her creatinine suggesting this is cardiorenal syndrome and would anticipate her creatinine will improve with diuresis. Current Visit: Yes (5) Diabetes mellitus type 2 in obese Status: Chronic Assessment and plan: She complained of low sugars and this is actually the reason she came in. Her sugar was 72 months ago. Here in the ER was 96. Record says he was on glyburide/metformin at home that then she says she is not sure what she is taking as her meds have been changed. In any case these should not be given in view of the severity of her renal failure metformin would be contraindicated and I suspect she was taking glyburide which is probably reason for her hypoglycemia. Current Visit: No (6) CKD (chronic kidney disease), stage IV Status: Chronic Current Visit: Yes (7) Aortic stenosis Status: Chronic Current Visit: No (8) Mitral stenosis Status: Chronic Current Visit: No History of Present Illness Chief complaint: My sugar and blood pressure have been going down. History of present illness: Ms. Moscoso is a 76 year old female With history of aortic and mitral valve disease chronic systolic heart failure. She came to the emergency room today complaining that her blood pressure and blood sugar "keep going down." She brought a log which showed some sugars going down to 56 and 60 than others above 100. She has chronic valvular heart disease. She had 2 echoes last March, 1 showed significant mitral and aortic stenosis another showed mitral and aortic regurgitation. She says she was referred to [facility] for valvular surgery evaluation but was told she was not a candidate and she was going to be treated medically. She has chronic heart failure and is on spironolactone, valsartan, Lasix, spironolactone. She said her physician told her to stop Lasix several days ago. She says she walks "fine." However when pressed she said she spends most of the day in a chair and walks a little bit around the house but has to stop and rest every few steps. I finally got her to admit that she was having to stop and rest more recently. She denies recent fever, chills, nausea, vomiting, chest pain. She recently had a stent in the mid LAD and proximal circumflex done May 03 this year. In the emergency room while I was examining her her heart rate went up to around 120 with mostly white but some narrow complexes. Rhythm appeared to be irregularly irregular. I faxed it to Dr. Kirkpatrick who said it did appear to be A. fib with conduction abnormalities. When she went into this rapid rhythm her O2 sat dropped to 90 and she was put on oxygen. Despite this she denied feeling bad or short of breath. She says her legs are always swollen but again admitted that after being told to stop her Lasix they have been swelling more recently. She has some orthopnea but denies PND. Vital signs in ER showed initial heart rate 90 but again now it is 120. Respirations 18, O2 sat initially 98. Blood pressure 144/76 later 116/55. Lab work showed chloride 100, CO2 23, BUN 102, creatinine 3.0. On May 24 a month ago BUN was 56 with creatinine 1.9. Sodium 133, potassium 5.9, BUN 102, creatinine 3.0. One month ago BUN was 56 with creatinine 1.9. Home Medications Medication Instructions Recorded Confirmed Type Ofloxacin 0.3% Oph Soln [Ocuflox 1 drop LEFT EYE QID 03/17/17 06/24/17 History 0.3% Oph Soln] Multivit,Iron,Mins/Folic Acid 1 each PO DAILY 04/26/17 06/24/17 History [[facility] Heart Tab] Aspirin Chew Tab 81 mg PO DAILY tablet 05/10/17 06/24/17 Rx Atorvastatin [Lipitor] 80 mg PO DAILY tablet 05/10/17 06/24/17 Rx Carvedilol [Coreg] 3.125 mg PO BID tablet 05/10/17 06/24/17 Rx Clopidogrel [Plavix] 75 mg PO DAILY tablet 05/10/17 06/24/17 Rx Furosemide Inj [Lasix Inj] 80 mg IV BID DIURETIC vial 05/10/17 06/24/17 Rx Glucagon 1 mg IM PRN PRN vial 05/10/17 06/24/17 Rx Spironolactone [Aldactone] 25 mg PO DAILY tablet 05/10/17 06/24/17 Rx Valsartan [Diovan] 40 mg PO DAILY tablet 05/10/17 06/24/17 Rx amLODIPine [Norvasc] 2.5 mg PO DAILY tablet 05/10/17 06/24/17 Rx hydrALAZINE INJ [Apresoline Inj] 10 mg IV Q6H PRN vial 05/10/17 06/24/17 Rx Cilostazol 50 mg PO BID 06/24/17 06/24/17 History Glyburide/Metformin HCl 1 each PO BID 06/24/17 06/24/17 History [Glyburide-Metformin 2.5-500 mg] Potassium Chloride 20 meq PO BID 06/24/17 06/24/17 History Saxagliptin HCl [Onglyza] 5 mg PO DAILY 06/24/17 06/24/17 History Allergies Allergy/AdvReac Type Severity Reaction Status Date / Time No Known Allergies Allergy Verified 06/24/17 03:02 Medical,Surgical,& Family Hx - Medical History Cardio: History of: CHF (Chronic systolic heart failure.), CAD (PCI 10/19/2011 & ), Hypertension, [place], PVD (Peripheral Stent x2.), Valvular Heart Disease (aortic and mitral insufficiency ) No history of: Pacemaker Neurology: No history of: Cerebrovascular Accident Endocrine: History of: Diabetes Mellitus (NIDDM) Respiratory: History of: Intubation (04/2017) No history of: Asthma, COPD, Pulmonary Embolism Renal: History of: Renal Failure (CKD Stage III) Gastrointestinal: No history of: GERD Musculoskeletal: History of: Back/Neck Problems (1971) Other: No history of: Cancer - Surgical History Cardiac Surgeries: Sugical HX of: Cardiac Catheterization (2 stents to the RCA and one stent to the left circumflex on October 19, 2011), Cardiac Surgery ( Recent stent LAD and circumflex April 2017.) HEENT Surgeries: Patient denies: Tonsilectomy & Adenoidectomy Abdominal Surgeries: Patient denies: Abdominal Surgery Reproductive Surgeries: Surgical HX of;: Gynecologic Surgery, Hysterectomy Orthopedic Surgeries: Patient denies;: Orthopedic Surgery - Family History Family History: Reports;: Family Cancer (Brother (leukemia)), Family Heart Disease, Family Hypertension, Family Stroke - Social History Smoking Status: Never smoker Frequency of Alcohol Use: None Type of Drug Use: None 12 point system: reviewed and no additional remarkable complaints except as stated Exam - Constitutional Vitals: Period Temp Pulse Resp BP Sys/Pina Pulse Ox Last 24 Hr 98.3 F-98.3 F 90-91 18-18 115-115/58-58 98 General appearance: normal weight - Head Head exam: Present: normal inspection, normocephalic - Eye Eye exam: Present: EOMI Pupils: Present: WESLY, normal accommodation - ENT ENT exam: Present: normal exam - Neck Neck exam: Present: normal inspection. Absent: lymphadenopathy, meningismus - Respiratory Respiratory exam: Present: rales (Bibasilar rales) - Cardiovascular Cardiovascular exam: Present: irregular rhythm, JVD (Severe 4+ JVD is present) - GI/Abdominal GI/Abdominal exam: Present: normal bowel sounds, soft. Absent: tenderness - Extremities Exam Extremities exam: Present: edema (3-4+ tibial edema bilaterally) - Back Exam Back exam: Absent: CVA tenderness (L) - Neurological Exam Neurological exam: Present: alert, oriented X3 - Psychiatric Psychiatric exam: Present: normal affect, normal mood - Skin Skin exam: Present: normal color. Absent: rash Results - Labs CBC & BMP: 06/24/17 Unknown 06/24/17 01:50 - EKG EKG shows: atrial fibrillation - Diagnostic Findings Procedure: Chest x-ray: image reviewed by me (There is vascular congestion suggesting CHF)
[2017-06-24] MEDS: METOPROLOL TARTRATE 5 MG/5 ML VIAL IV PRN ×3 (06:04→06:37)
[2017-06-24] MEDS: INSULIN LISPRO 100 UNIT/ML SUBCUT SCH ×4 (07:59→20:50)
--- NOTE | 2017-06-24 08:11 | Cardiology Consult Note ---
Assessment and Plan - Time spent with patient Time spent with patient: Greater than 30 minutes (1) Atrial fibrillation with RVR Status: Acute Assessment and plan: Plan/recommendation: The Satya muse RVR is probably exacerbating the heart failure Agree with giving metoprolol 5 mg IV every 5 minutes 3 and see if this could help convert to sinus rhythm --after giving her this she did convert to sinus rhythm and feels much better-- Next option would be to try a low-dose of IV Cardizem Treat hyperkalemia with Kayexalate Check magnesium, TSH, if not already done Cardiac isoenzymes, serial Serial EKGs Watch renal function Continue antiplatelet therapy as she has had some recent coronary stents Prognosis is guarded I will follow along with. Thank you for allowing me to participate in this patient's care Current Visit: Yes (2) Acute on chronic systolic heart failure Status: Acute Current Visit: Yes (3) Acute on chronic renal failure Status: Acute Current Visit: Yes (4) Hyperkalemia Status: Acute Current Visit: Yes (5) Hypotension Status: Acute Current Visit: Yes (6) CKD (chronic kidney disease), stage IV Status: Chronic Current Visit: Yes (7) Chronic systolic heart failure Status: Chronic Current Visit: Yes (8) Aortic stenosis Status: Chronic Current Visit: No (9) Aortic valve stenosis Status: Chronic Current Visit: No (10) Coronary artery disease Status: Chronic Current Visit: No Qualifiers: Coronary Disease-Associated Artery/Lesion type: [place] artery [place] vs. transplanted heart: [place] heart Associated angina: without angina Qualified Code(s): I25.10 - Atherosclerotic heart disease of [place] coronary artery without angina pectoris (11) Diabetes mellitus type 2 in obese Status: Chronic Current Visit: No (12) Hyperlipidemia Status: Chronic Current Visit: No Qualifiers: Hyperlipidemia type: pure hypercholesterolemia Qualified Code(s): E78.00 - Pure hypercholesterolemia, unspecified; E78.0 - Pure hypercholesterolemia (13) Mitral regurgitation Status: Chronic Current Visit: No Qualifiers: Cardiac valve disease etiology: nonrheumatic Qualified Code(s): I34.0 - Nonrheumatic mitral (valve) insufficiency (14) 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 Moscoso is a 76 year old female This is a 76-year-old female of and descent with a history of mitral and aortic valve disease for which she was admitted to the hospital in April with congestive heart failure was intubated and transferred to [facility] for evaluation for possible aortic valve and mitral valve repair but after being evaluated it was determined she was not a candidate for a valvular repair, who has a history of type 2 diabetes congestive heart failure , myocardial infarctions for which stent placement in the mid LAD and proximal circumflex was accomplished May 03, 2017, hypertension, peripheral vascular disease who presents with blood pressures which have been trending low in the range of 100-90 systolic with blood sugars that have been ranging from 50-60 who has generalized weakness and believes that there is something medically wrong to explain the symptoms. She denies any chest pain shortness of breath syncope abdominal pain nor back pain. There is no history of fever nor chills She sleeps best propped up. No edema, palpitations, syncope, cough wheezing or phlegm. Review of systems is remarkable for decreased visual acuity , plus as noted in HPI Past medical: Aortic and mitral valve disease Heart failure Last echo was in around March or April 2017 Chronic Cc Heart failure Chronic renal insufficiency CC: Mike Pollock MD - Home Medications and Allergies Home Medications: Home Medications Medication Instructions Recorded Confirmed Type Ofloxacin 0.3% Oph Soln [Ocuflox 1 drop LEFT EYE QID 03/17/17 05/24/17 History 0.3% Oph Soln] Multivit,Iron,Mins/Folic Acid 1 each PO DAILY 04/26/17 06/24/17 History [[facility] Heart Tab] Aspirin Chew Tab 81 mg PO DAILY tablet 05/10/17 06/24/17 Rx Atorvastatin [Lipitor] 80 mg PO DAILY tablet 05/10/17 06/24/17 Rx Carvedilol [Coreg] 3.125 mg PO BID tablet 05/10/17 06/24/17 Rx Clopidogrel [Plavix] 75 mg PO DAILY tablet 05/10/17 06/24/17 Rx Furosemide Inj [Lasix Inj] 80 mg IV BID DIURETIC vial 05/10/17 05/24/17 Rx Glucagon 1 mg IM PRN PRN vial 05/10/17 05/24/17 Rx Spironolactone [Aldactone] 25 mg PO DAILY tablet 05/10/17 06/24/17 Rx Valsartan [Diovan] 40 mg PO DAILY tablet 05/10/17 05/24/17 Rx amLODIPine [Norvasc] 2.5 mg PO DAILY tablet 05/10/17 05/24/17 Rx hydrALAZINE INJ [Apresoline Inj] 10 mg IV Q6H PRN vial 05/10/17 05/24/17 Rx Cilostazol 50 mg PO BID 06/24/17 06/24/17 History Furosemide 120 mg PO BID 06/24/17 06/24/17 History Glyburide/Metformin HCl 2 each PO BID 06/24/17 06/24/17 History [Glyburide-Metformin 2.5-500 mg] Omeprazole 20 mg PO DAILY 06/24/17 06/24/17 History Potassium Chloride 20 meq PO DAILY 06/24/17 06/24/17 History Saxagliptin HCl [Onglyza] 5 mg PO DAILY 06/24/17 06/24/17 History Allergies/Adverse Reactions: Allergies Allergy/AdvReac Type Severity Reaction Status Date / Time No Known Allergies Allergy Verified 06/24/17 03:02 12 point system: reviewed and no additional remarkable complaints except as stated (A 12 point review of systems is negative except for as mentioned in HPI) Medical,Surgical,& Family Hx - Medical History Cardio: History of: Cardiac Dysrhythmia, CHF (Chronic systolic heart failure.), CAD (PCI 10/19/2011 & 05/03/2017), Hypertension, [place], PVD (Peripheral Stent x2.), Valvular Heart Disease (aortic and mitral insufficiency ) No history of: Pacemaker Neurology: No history of: Cerebrovascular Accident HEENT: History of: Eye Problem (bleeding behind retinas) Endocrine: History of: Diabetes Mellitus (NIDDM), Dyslipidemia, Thyroid Disorder Respiratory: History of: Intubation (04/2017), Pneumonia No history of: Asthma, COPD, Pulmonary Embolism Renal: History of: Renal Failure (CKD Stage III) Gastrointestinal: No history of: GERD Musculoskeletal: History of: Back/Neck Problems (1971) Hematology: History of: Anemia No history of: Blood Transfusion Reaction Other: No history of: Anesthesia Reactions, Cancer - Surgical History Cardiac Surgeries: Sugical HX of: Cardiac Catheterization (2 stents to the RCA and one stent to the left circumflex on October 19, 2011), Cardiac Surgery ( Recent stent LAD and circumflex April 2017.) HEENT Surgeries: Patient denies: Tonsilectomy & Adenoidectomy Abdominal Surgeries: Patient denies: Abdominal Surgery Reproductive Surgeries: Surgical HX of;: Gynecologic Surgery, Hysterectomy Orthopedic Surgeries: Patient denies;: Orthopedic Surgery - Family History Family History: Reports;: Family Cancer (Brother (leukemia)), Family Heart Disease, Family Hypertension, Family Stroke - Social History Smoking Status: Never smoker Frequency of Alcohol Use: None Type of Drug Use: None Physical Examination Vital Signs Temp Pulse Resp BP Pulse Ox 98.3 F 91 H 18 115/58 98 06/24/17 00:15 06/24/17 00:15 06/24/17 00:15 06/24/17 00:15 06/24/17 00:15 Exam: HEENT: Pupils equal, reactive to light and accommodation Neck: NoJVD or bruit Lungs clear to auscultation Heart: Regular rhythm rate with normal S1 and S2. Apical S4 ; 2/6 systolic ejection murmur along the right upper sternal border. 1/6 hollow systolic murmur at the apex Abdomen: No hepatosplenomegaly Spine/extremities: No clubbing, cyanosis, or edema Neuro: Nonfocal Psych: No depression or anxiety, 2/6 Lower extremity pulses are 2+ Result/EKG - Labs CBC & BMP: 06/24/17 Unknown 06/24/17 01:50 Lab Results: I have reviewed the past 24 hour labs Labs: Laboratory Results - last 24 hr 06/24/17 06/24/17 06/24/17 01:30 01:31 01:39 WBC RBC Hgb Hct MCV MCH MCHC RDW Plt Count MPV Neut % (Auto) Lymph % (Auto) [place] % (Auto) Eos % (Auto) Baso % (Auto) Neut # (Auto) Lymph # (Auto) [place] # (Auto) Eos # (Auto) Baso # (Auto) Immature Gran % Nucleated RBC % Immature Gran # Nucleated RBCs # Immature Plt Fraction Sodium Potassium Chloride Carbon Dioxide Anion Gap BUN Creatinine GFR Calculation BUN/Creatinine Ratio Glucose POC Glucose 93 Calculated Osmolality Calcium Total Bilirubin AST ALT Alkaline Phosphatase Troponin I B-Natriuretic Peptide 1690 H Total Protein Albumin Globulin Albumin/Globulin Ratio Urine Color Yellow Urine Appearance Slightly hazy Urine pH 5.0 Ur Specific [place] 1.009 Urine Protein 30 Urine Glucose (UA) Negative Urine Ketones Negative Urine Blood Negative Urine Nitrate Negative Urine Bilirubin Negative Urine Urobilinogen < 2.0 H Urine Leukocytes Negative Ur Squamous Epith Cells Occasional Urine Bacteria Occasional Hyaline Casts 1 Ur Culture Indicated? Not indicated 06/24/17 06/24/17 01:50 Unknown WBC 8.9 RBC 3.04 L Hgb 8.8 L Hct 26.7 L MCV 87.8 MCH 29 MCHC 33.0 RDW 16.3 Plt Count 288 MPV 10.2 Neut % (Auto) 73.6 Lymph % (Auto) 17.6 L [place] % (Auto) 7.0 Eos % (Auto) 1.4 Baso % (Auto) 0.1 Neut # (Auto) 6.5 Lymph # (Auto) 1.6 [place] # (Auto) 0.6 Eos # (Auto) 0.1 Baso # (Auto) 0.0 Immature Gran % 0.3 Nucleated RBC % 0.0 Immature Gran # 0.03 Nucleated RBCs # 0.00 Immature Plt Fraction 0.0 Sodium 133 L Potassium 5.9 H Chloride 100 Carbon Dioxide 23 Anion Gap 15.9 H BUN 102 H Creatinine 3.00 H GFR Calculation 13 BUN/Creatinine Ratio 34.00 H Glucose 96 POC Glucose Calculated Osmolality 297.4 Calcium 9.0 Total Bilirubin < 0.39 AST 25 ALT 32 Alkaline Phosphatase 94 Troponin I 0.319 H B-Natriuretic Peptide Total Protein 7.6 Albumin 3.2 L Globulin 4.4 H Albumin/Globulin Ratio 0.7 L Urine Color Urine Appearance Urine pH Ur Specific [place] Urine Protein Urine Glucose (UA) Urine Ketones Urine Blood Urine Nitrate Urine Bilirubin Urine Urobilinogen Urine Leukocytes Ur Squamous Epith Cells Urine Bacteria Hyaline Casts Ur Culture Indicated? Specialty Discharge - Follow Up or Referrals Follow up with: Arsenio Medley MD [Physician] -
[2017-06-24] MEDS: ASPIRIN CHEW 81 MG TABLET PO SCH (08:41)
[2017-06-24] MEDS: ATORVASTATIN 80 MG TABLET PO SCH (08:41)
[2017-06-24] MEDS: CLOPIDOGREL 75 MG TABLET PO SCH (08:41)
[2017-06-24] MEDS: CARVEDILOL 3.125 MG TABLET PO SCH ×2 (08:41→20:23)
[2017-06-24] MEDS: OFLOXACIN 0.3% OPH SOLN 10 ML BOTTLE LEFT EYE SCH ×4 (08:41→20:23)
[2017-06-24] MEDS: ENOXAPARIN 30 MG/0.3 ML SYRINGE SUBCUT SCH (08:41)
[2017-06-24] MEDS ORDERED: SPIRONOLACTONE 25 MG TABLET PO SCH (09:00)
[2017-06-24 09:04] LABS: Magnesium 2.7 MG/DL (1.8-2.4); Thyroid Stimulating Hormone 1.41 uIU/ml (0.358-3.74)
--- NOTE | 2017-06-24 09:15 | Hospitalist Progress Note ---
Assessment and Plan (1) Coronary artery disease Status: Chronic Assessment and plan: Previous percutaneous interventions most recently after NSTEMI in March 2017. Echocardiographic evidence of stenotic mitral and aortic valve disease with moderately severe pulmonary hypertension and reduced global LV systolic performance. Presentation with presumed paroxysmal atrial fibrillation with rate related intraventricular conduction delay. Current Visit: No Qualifiers: Coronary Disease-Associated Artery/Lesion type: [place] artery [place] vs. transplanted heart: [place] heart Associated angina: without angina Qualified Code(s): I25.10 - Atherosclerotic heart disease of [place] coronary artery without angina pectoris (2) Acute renal failure superimposed on chronic kidney disease Status: Acute Assessment and plan: Rising serum creatinine and particularly BUN and creatinine ratio over the last month suggestive of chronic renal insufficiency with acute prerenal component. Current Visit: No Qualifiers: Chronic kidney disease stage: stage 3 (moderate) Hospitalist: Subjective Interval history: 76-year-old female sixth visit since March of this year. Initial visit was characterized by shortness of breath in association with mild respiratory acidosis severe hypoxemia associated with an elevated cardiac troponin I level. Coronary angiography was performed showing a nondominant circumflex coronary artery with 90% stenosis proximally, a large second diagonal branch with 90% stenosis, and total occlusion of the right coronary artery with [id number] collateral filling via the left anterior descending coronary artery. Her acute ejection fraction was estimated at 35% diffuse hypokinesia with calcific changes related to the aortic and mitral valves. Aortography demonstrated findings of 3+ aortic regurgitation. Her echocardiogram in March 2017 demonstrated a mean mitral valve gradient of 10 mmHg with a mean aortic valve gradient of 29 mmHg and the right ventricular systolic pressure of 65 mmHg. LVEF was 40-50% and aortic regurgitation was graded as moderate. She was readmitted with recurrent dyspnea shortly after discharge responsive to diuresis. As a Jewish and at high risk for operative intervention a referral to [place] was arranged. No surgery was performed and she represented in April with respiratory failure requiring mechanical ventilation. On that visit she underwent stenting of the LAD and ostial LCX. She represented with hypoxemia and metabolic acidosis four days post discharge and required another course of mechanical ventilation. She was discharged to [facility]. On this occasion she presents with complaints of lightheadedness. She was documented to have a wide complex irregular rhythm which is quite possibly paroxysmal atrial fibrillation with rate related intraventricular conduction delay. Subsequent to admission she has had bursts which are apparently better tolerated than those noted at admission at this time is in sinus rhythm. The patient's Lasix have been held as an outpatient but she presents with a severe prerenal azotemia compared to laboratory work obtained last month. Her vital signs overnight were stable. Exam - Constitutional Vitals: Period Temp Pulse Resp BP Sys/Pina Pulse Ox Last 24 Hr 98.3 F-98.7 F 66-120 17-30 106-150/48-89 92-100 General appearance: under weight - Respiratory Respiratory exam: Present: clear to auscultation bilaterally. Absent: rales, rhonchi, wheezes - Cardiovascular Cardiovascular exam: Present: regular rate and rhythm, systolic murmur (2/6 basal systolic murmur with radiation to the carotid) - GI/Abdominal GI/Abdominal exam: Absent: distended, tenderness - Neurological Exam Neurological exam: Present: alert, oriented X3, other Results - Labs CBC & BMP: 06/24/17 Unknown 06/24/17 01:50 Labs: Cardiac troponin I 0.319 Albumin 3.2 Globulin 4.4 - Diagnostic Findings Procedure: Chest x-ray: image reviewed by me (Left ventricular configuration coarsening of the right middle lobe markings)
--- NOTE | 2017-06-24 09:38 | XRay Report ---
History: Decreased blood pressure. History of hypertension and coronary artery disease Date: 06/24/2017 Study: Chest x-ray AP portable Comparison exam: May 10, 2017 There is cardiomegaly. The pulmonary vasculature is slightly prominent. There is mild hazy edema in the lower lungs. There is trace bilateral pleural effusion. The mediastinal contours are similar. There is moderate aortic arch calcification. There is osteopenia and mild thoracic spondylosis. Impression: Cardiomegaly and evidence of CHF with some mild bibasilar pulmonary edema PROCEDURE INTERPRETED AT [facility] DEPARTMENT OF RADIOLOGY Final Report Signed by: Dr. Anna Isaacs
[2017-06-24 10:06] LABS: Apearance,Urine CLEAR (Clear); Bacteria,Urine Occasional /HPF (Few); Bilirubin,Urine Negative (Negative); Blood, Urine Negative (Negative); Glucose,Urine (UA) Negative (Negative); Ketones,Urine Negative (Negative); Mucus,Urine Occasional /LPF (Occasional); Nitrite,Urine Negative (Negative); Protein,Urine 30 MG/DL; RBC,Urine <1 /HPF (0-4); Squamous Epithelial Cell,Urine Occasional /HPF (0-10); Urine Color Yellow (Yellow); Urine Specific Gravity 1.006 (1.001-1.035); Urine Urobilinogen < 2.0 EU/DL (0.2-1.0); WBC,Urine 2 /HPF (0-6)
[2017-06-24 15:19] LABS: Troponin I Only 0.413 NG/ML (0.00-0.045)
[2017-06-24] MEDS ORDERED: DILTIAZEM INJ 100 MG in SODIUM CHLORIDE 0.9% 100 ML IV SCH (18:00)
[2017-06-24 20:17] LABS: Troponin I Only 0.457 NG/ML (0.00-0.045)
[2017-06-25 03:39] LABS: Basophils % 0.2 % (0.0-0.8); Eosinophils # 0.1 10*3/uL (0.0-0.87); Eosinophils % 1.7 % (0.00-10.9); Hematocrit 30.2 VOL% (35.7-47.0); Hemoglobin 9.9 GM/DL (12.0-16.0); Immature Granulocytes % 0.3 %; Immature Granulocytes Absolute 0.02 #; Lymphocytes # 1.3 10*3/uL (1.4-4.0); Lymphocytes % 22.5 % (21.3-54.2); Mean Corpuscular HGB Conc 32.8 GM/DL (32-36); Mean Corpuscular Hemoglobin 29 PG (27-34); Mean Corpuscular Volume 87.8 FL (87-102); Mean Platelet Volume 10.6 FL (9.6-12.0); Monocytes # 0.5 10*3/uL (0.11-0.8); Monocytes % 8.4 % (1.7-12.7); Neutrophils % 66.9 % (38.7-73.9); Platelet Count 235 T/CUMM (130-400); Red Blood Count 3.44 MC/CUMM (3.8-5.5); Red Cell Distribution Width 16.5 % (9.3-17.3)
[2017-06-25 04:34] LABS: Troponin I Only 0.412 NG/ML (0.00-0.045)
[2017-06-25 04:59] LABS: Alanine Aminotransferase 33 U/L (13-56); Albumin 2.8 G/DL (3.4-5.0); Alkaline Phosphatase 89 U/L (45-117); Aspartate Amino Transferase 26 U/L (0-37); Bilirubin,Total < 0.39 MG/DL (0.2-1.0); Blood Urea Nitrogen 98 MG/DL (7-18); Calcium 8.6 MG/DL (8.5-10.1); Glucose 59 MG/DL (74-106); Osmolality,Calculated 298.1 MOS/KG (273-304); Potassium 5.3 MMOL/L (3.5-5.1); Sodium 135 MMOL/L (136-145); Total Protein 6.7 G/DL (6.4-8.3)
--- NOTE | 2017-06-25 08:35 | Hospitalist Progress Note ---
Assessment and Plan (1) Coronary artery disease Status: Chronic Assessment and plan: Previous percutaneous interventions most recently after NSTEMI in March 2017. Echocardiographic evidence of stenotic mitral and aortic valve disease with moderately severe pulmonary hypertension and reduced global LV systolic performance. Presentation with presumed paroxysmal atrial fibrillation with rate related intraventricular conduction delay. Current Visit: No Qualifiers: Coronary Disease-Associated Artery/Lesion type: [place] artery [place] vs. transplanted heart: [place] heart Associated angina: without angina Qualified Code(s): I25.10 - Atherosclerotic heart disease of [place] coronary artery without angina pectoris (2) Acute renal failure superimposed on chronic kidney disease Status: Acute Assessment and plan: Rising serum creatinine and particularly BUN and creatinine ratio over the last month suggestive of chronic renal insufficiency with acute prerenal component. Current Visit: No Qualifiers: Chronic kidney disease stage: stage 3 (moderate) Hospitalist: Subjective Interval history: 76-year-old female who has a complicated history over the last year. She initially sustained a respiratory acidosis with elevated cardiac troponin I levels with coronary angiography showing a nondominant circumflex coronary artery with 90% proximal stenosis a large second diagonal branch with 90% stenosis and total occlusion of the right coronary artery with [id number] filling by collaterals. Acutely her ejection fraction was 35% with diffuse hypokinesia with calcific changes involving aortic and mitral valves. A follow- up echocardiogram demonstrated a mean aortic valve gradient of 10 mmHg with a mean aortic valve gradient of 29 mmHg. Her right ventricular systolic pressure was 65% and the ejection fraction was felt to be 40-45%. At aortography with the catheterization she was felt to have 3+ AR echocardiographically this was graded as moderate. She has had 5 subsequent admissions to the hospital. These have been for recurrent dyspneic episodes. She was referred for potential surgery to [place] this apparently was declined (the patient is a Rastafarian). She represented shortly thereafter and here underwent stenting of the left anterior descending and ostial left circumflex arteries. Shortly after discharge she represented once again with metabolic acidosis hypoxemia and another course of mechanical ventilation was required. She was discharged to [facility] she tells me that the recommendation was medical treatment. On this admission the patient complained of lightheadedness. Although her Lasix had been discontinued as an outpatient she demonstrated a marked increase in her BUN to creatinine ratio with a BUN greater than 100. In addition she was found to have a wide complex irregular rhythm likely atrial fibrillation with rate related interventricular conduction delay. Her Lasix is continued on hold with gradual improvement in her renal function and lowering of her BUN. Overnight her vital signs were stable and she sustained no further wide-complex tachycardias. Her troponin was indeterminate and nonevolving her total CPK remained stable with borderline CK-MB. Exam - Constitutional Vitals: Period Temp Pulse Resp BP Sys/Pina Pulse Ox Last 24 Hr 97.1 F-97.9 F 62-120 10-74 87-129/39-69 95-100 General appearance: under weight - Respiratory Respiratory exam: Present: clear to auscultation bilaterally. Absent: rales, rhonchi, wheezes - Cardiovascular Cardiovascular exam: Present: regular rate and rhythm, systolic murmur - GI/Abdominal GI/Abdominal exam: Present: normal bowel sounds. Absent: tenderness - Extremities Exam Extremities exam: Absent: edema - Neurological Exam Neurological exam: Present: alert, oriented X3 Results - Labs CBC & BMP: 06/25/17 03:00 06/25/17 03:00 Labs: Cardiac troponin I 0.457 and 0.412 CPK 45 CK-MB 3.2 Albumin 2.8 Specialty Discharge - Follow Up or Referrals Follow up with: Arsenio Medley MD [Physician] -
[2017-06-25] MEDS: INSULIN LISPRO 100 UNIT/ML SUBCUT SCH ×4 (08:48→22:07)
--- NOTE | 2017-06-25 09:25 | EKG Report ---
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
[2017-06-25] MEDS: CLOPIDOGREL 75 MG TABLET PO SCH (09:43)
[2017-06-25] MEDS: ASPIRIN CHEW 81 MG TABLET PO SCH (09:43)
[2017-06-25] MEDS: ATORVASTATIN 80 MG TABLET PO SCH (09:43)
[2017-06-25] MEDS: CARVEDILOL 3.125 MG TABLET PO SCH ×2 (09:43→22:06)
[2017-06-25] MEDS: ENOXAPARIN 30 MG/0.3 ML SYRINGE SUBCUT SCH (09:44)
[2017-06-25] MEDS: OFLOXACIN 0.3% OPH SOLN 10 ML BOTTLE LEFT EYE SCH ×4 (09:48→22:06)
--- NOTE | 2017-06-25 11:04 | EKG Report ---
Stationary ECG Study 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
--- NOTE | 2017-06-25 12:55 | Cardiology Progress Note ---
Assessment and Plan (1) Atrial fibrillation with RVR Status: Acute Assessment and plan: Plan/recommendation: The Satya muse RVR is probably exacerbating the heart failure Agree with giving metoprolol 5 mg IV every 5 minutes 3 and see if this could help convert to sinus rhythm --after giving her this she did convert to sinus rhythm and feels much better-- Next option would be to try a low-dose of IV Cardizem Treat hyperkalemia with Kayexalate Check magnesium, TSH, if not already done Cardiac isoenzymes, serial Serial EKGs Watch renal function Continue antiplatelet therapy as she has had some recent coronary stents Prognosis is guarded I will follow along with. Thank you for allowing me to participate in this patient's care 06/25/17 Plan/recommendation/assessment She is remaining in sinus rhythm We will discontinue IV Cardizem and use low-dose oral Cardizem Because borderline low blood pressure and rising creatinine will remain off valsartan and amlodipine for now Creatinine is decreasing which is favorable. Will continue to follow daily BMP for a few more days Okay with me to transfer to telemetry unit for further observation and care With enzymes negative I do not believe she needs a re-cath at this time She had an echo done with the last 2 months, so she probably does not need another one that was done at this time I conferred care with the patient's nurse Current Visit: Yes (2) Acute on chronic systolic heart failure Status: Acute Current Visit: Yes (3) Acute on chronic renal failure Status: Acute Current Visit: Yes (4) Hyperkalemia Status: Acute Current Visit: Yes (5) Hypotension Status: Acute Current Visit: Yes (6) CKD (chronic kidney disease), stage IV Status: Chronic Current Visit: Yes (7) Chronic systolic heart failure Status: Chronic Current Visit: Yes (8) Aortic stenosis Status: Chronic Current Visit: No (9) Aortic valve stenosis Status: Chronic Current Visit: No (10) Coronary artery disease Status: Chronic Current Visit: No Qualifiers: Coronary Disease-Associated Artery/Lesion type: [place] artery [place] vs. transplanted heart: [place] heart Associated angina: without angina Qualified Code(s): I25.10 - Atherosclerotic heart disease of [place] coronary artery without angina pectoris (11) Diabetes mellitus type 2 in obese Status: Chronic Current Visit: No (12) Hyperlipidemia Status: Chronic Current Visit: No Qualifiers: Hyperlipidemia type: pure hypercholesterolemia Qualified Code(s): E78.00 - Pure hypercholesterolemia, unspecified; E78.0 - Pure hypercholesterolemia (13) Mitral regurgitation Status: Chronic Current Visit: No Qualifiers: Cardiac valve disease etiology: nonrheumatic Qualified Code(s): I34.0 - Nonrheumatic mitral (valve) insufficiency (14) Refusal of blood transfusions as patient is Latter-day Status: Chronic Current Visit: No (15) Pulmonary edema Status: Resolved Current Visit: No Cardiology - PN: Subj Interval history: No chest pain or shortness of breath. Exam (Progress Note) - Constitutional Vitals: Period Temp Pulse Resp BP Sys/Pina Pulse Ox Last 24 Hr 97.1 F-98.2 F 62-120 10-74 87-129/39-69 97-100 Exam: HEENT: Pupils equal, reactive to light and accommodation Neck: NoJVD or bruit Lungs clear to auscultation Heart: Regular rhythm rate with normal S1 and S2. Apical S4, 2/6 systolic ejection murmur along the right upper sternal border, mid peaking. Abdomen: No hepatosplenomegaly Spine/extremities: No clubbing, cyanosis, or edema Neuro: Nonfocal Psych: No depression or anxiety Result/EKG - Labs CBC & BMP: 06/25/17 03:00 06/25/17 03:00 Lab Results: I have reviewed the past 24 hour labs Labs: Laboratory Results - last 24 hr 06/24/17 06/24/17 06/24/17 14:42 15:36 19:43 WBC RBC Hgb Hct MCV MCH MCHC RDW Plt Count MPV Neut % (Auto) Lymph % (Auto) [place] % (Auto) Eos % (Auto) Baso % (Auto) Neut # (Auto) Lymph # (Auto) [place] # (Auto) Eos # (Auto) Baso # (Auto) Immature Gran % Nucleated RBC % Immature Gran # Nucleated RBCs # Immature Plt Fraction Sodium Potassium Chloride Carbon Dioxide Anion Gap BUN Creatinine GFR Calculation BUN/Creatinine Ratio Glucose POC Glucose 101 Hemoglobin A1c Calculated Osmolality Calcium Total Bilirubin AST ALT Alkaline Phosphatase Total Creatine Kinase 61 51 CK-MB (CK-2) 4.0 H 3.7 H Troponin I 0.413 H D 0.457 H Total Protein Albumin Globulin Albumin/Globulin Ratio 06/24/17 06/25/17 06/25/17 20:39 03:00 03:00 WBC 6.0 D RBC 3.44 L Hgb 9.9 L Hct 30.2 L MCV 87.8 MCH 29 MCHC 32.8 RDW 16.5 Plt Count 235 MPV 10.6 Neut % (Auto) 66.9 Lymph % (Auto) 22.5 [place] % (Auto) 8.4 Eos % (Auto) 1.7 Baso % (Auto) 0.2 Neut # (Auto) 4.0 Lymph # (Auto) 1.3 L [place] # (Auto) 0.5 Eos # (Auto) 0.1 Baso # (Auto) 0.0 Immature Gran % 0.3 Nucleated RBC % 0.0 Immature Gran # 0.02 Nucleated RBCs # 0.00 Immature Plt Fraction 0.0 Sodium 135 L Potassium 5.3 H Chloride 102 Carbon Dioxide 26 Anion Gap 12.3 BUN 98 H Creatinine 2.60 H GFR Calculation 15 BUN/Creatinine Ratio 37.00 H Glucose 59 L POC Glucose 254 H Hemoglobin A1c Calculated Osmolality 298.1 Calcium 8.6 Total Bilirubin < 0.39 AST 26 ALT 33 Alkaline Phosphatase 89 Total Creatine Kinase CK-MB (CK-2) Troponin I Total Protein 6.7 Albumin 2.8 L Globulin 3.9 H Albumin/Globulin Ratio 0.7 L 06/25/17 06/25/17 06/25/17 03:00 03:00 06:57 WBC RBC Hgb Hct MCV MCH MCHC RDW Plt Count MPV Neut % (Auto) Lymph % (Auto) [place] % (Auto) Eos % (Auto) Baso % (Auto) Neut # (Auto) Lymph # (Auto) [place] # (Auto) Eos # (Auto) Baso # (Auto) Immature Gran % Nucleated RBC % Immature Gran # Nucleated RBCs # Immature Plt Fraction Sodium Potassium Chloride Carbon Dioxide Anion Gap BUN Creatinine GFR Calculation BUN/Creatinine Ratio Glucose POC Glucose 73 L Hemoglobin A1c 5.8 Calculated Osmolality Calcium Total Bilirubin AST ALT Alkaline Phosphatase Total Creatine Kinase 45 CK-MB (CK-2) 3.2 Troponin I 0.412 H Total Protein Albumin Globulin Albumin/Globulin Ratio - Diagnostic Findings Procedure: Chest x-ray: report reviewed by me - EKG EKG results: interpreted by me Specialty Discharge - Follow Up or Referrals Follow up with: Arsenio Medley MD [Physician] -
[2017-06-25] MEDS: DILTIAZEM 30 MG TABLET PO SCH ×4 (13:02→22:06)
[2017-06-26 06:40] LABS: Calcium 8.6 MG/DL (8.5-10.1); Osmolality,Calculated 298.2 MOS/KG (273-304); Potassium 4.9 MMOL/L (3.5-5.1)
--- NOTE | 2017-06-26 07:53 | EKG Report ---
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
[2017-06-26] MEDS: INSULIN LISPRO 100 UNIT/ML SUBCUT SCH ×4 (08:45→22:02)
[2017-06-26] MEDS: ASPIRIN CHEW 81 MG TABLET PO SCH (08:47)
[2017-06-26] MEDS: OFLOXACIN 0.3% OPH SOLN 10 ML BOTTLE LEFT EYE SCH ×4 (08:47→22:02)
[2017-06-26] MEDS: DILTIAZEM 30 MG TABLET PO SCH ×2 (08:47→12:57)
[2017-06-26] MEDS: CARVEDILOL 3.125 MG TABLET PO SCH (08:47)
[2017-06-26] MEDS: CLOPIDOGREL 75 MG TABLET PO SCH (08:47)
[2017-06-26] MEDS: ENOXAPARIN 30 MG/0.3 ML SYRINGE SUBCUT SCH (08:47)
[2017-06-26] MEDS: ATORVASTATIN 80 MG TABLET PO SCH (08:47)
--- NOTE | 2017-06-26 10:44 | Cardiology Progress Note ---
<Samina Segura E - Last Filed: 06/26/17 11:57> Assessment and Plan - Time spent with patient Time spent with patient: Less than 30 minutes (1) Atrial fibrillation with RVR Status: Acute Assessment and plan: See plan of care listed below. Current Visit: Yes (2) Acute on chronic systolic heart failure Status: Acute Assessment and plan: See plan of care listed below. Current Visit: Yes (3) CKD (chronic kidney disease), stage IV Status: Chronic Assessment and plan: See plan of care listed below. Current Visit: Yes (4) Aortic stenosis Status: Chronic Assessment and plan: See plan of care listed below. Current Visit: No (5) Coronary artery disease Status: Chronic Assessment and plan: See plan of care listed below. Current Visit: No Qualifiers: Coronary Disease-Associated Artery/Lesion type: [place] artery [place] vs. transplanted heart: [place] heart Associated angina: without angina Qualified Code(s): I25.10 - Atherosclerotic heart disease of [place] coronary artery without angina pectoris (6) Type 2 diabetes mellitus Status: Chronic Assessment and plan: See plan of care listed below. Current Visit: Yes (7) Hyperlipidemia Status: Chronic Assessment and plan: See plan of care listed below. Current Visit: No Qualifiers: Hyperlipidemia type: pure hypercholesterolemia Qualified Code(s): E78.00 - Pure hypercholesterolemia, unspecified; E78.0 - Pure hypercholesterolemia (8) Mitral regurgitation Status: Chronic Assessment and plan: See plan of care listed below. Current Visit: No Qualifiers: Cardiac valve disease etiology: nonrheumatic Qualified Code(s): I34.0 - Nonrheumatic mitral (valve) insufficiency (9) Refusal of blood transfusions as patient is Religion Status: Chronic Assessment and plan: See plan of care listed below. Current Visit: No (10) Hyperkalemia Status: Acute Assessment and plan: See plan of care listed below. Current Visit: Yes (11) Hypertension Status: Chronic Assessment and plan: See plan of care listed below. Current Visit: No Cardiology - PN: Subj Interval history: Communications Project Lead: Dr. Medley SUMMARY: Ms. Moscoso is a 76 year old female who presented with atrial fibrillation with rapid ventricular response and acute on chronic systolic CHF. She is very familiar to our service and is known to have a history of coronary artery disease, aortic insufficiency, mitral regurgitation, recurrent congestive heart failure, diabetes, hyperlipidemia, and hypertension. She is status post non-STEMI with three-vessel CAD (occluded ostial RCA, 70% calcific proximal LAD, 90% proximal circumflex) per left heart catheterization on 03/20/17. She was referred to [facility] where Dr. Giovani Monroe reviewed her studies and agrees that she likely has moderate valve disease in both the mitral position from the stenosis standpoint and moderate /AI consistent with her most recent echo on 04/05/17 which revealed an EF of 40-45%, mild LVH, moderate aortic insufficiency, mild mitral insufficiency. She is now s/p stenting of the mid LAD with a ANGELA, orbital atherectomy of the proximal circumflex, and stenting of the proximal circumflex with a ANGELA on 05/03/17. 2016: Ms. Moscoso is doing well today. She reports she is feeling much better today. She continues to maintain a normal sinus rhythm with well controlled rate. Creatinine remains at 2.6. She continues to have some BLE edema. IMPRESSION/PLAN: 1. ATRIAL FIBRILLATION W/ RVR: She converted with administration of IV beta blockers and has been placed on PO Cardizem. She is now maintaining a normal sinus rhythm. Continue current plan of care. CHADSVASC score is 7. Given her history of anemia and status as a Sikh, she would not be an ideal candidate for chronic anticoagulation. Will further discuss with Dr. Alfaro and await his recommendations. For now, continue anticoagulation with aspirin. 2. ACUTE ON CHRONIC SCHF: BNP 1690 upon admission and was diuresed with IV Lasix which was stopped on 06/24. She continues to have some BLE edema but lungs are fairly clear with only mild bibasilar crackles. 3. CHRONIC KIDNEY DISEASE, STAGE IV: Will try to avoid nephrotoxic agents. Creatinine 2.6. Continue to avoid NO/ARB. 4. AORTIC STENOSIS: Echocardiogram was repeated on 04/05/2017 and revealed EF 40 -45%, mild LVH, moderate aortic insufficiency, mild mitral insufficiency. She was transferred to [facility] on 04/12/17 to the care of Dr. Giovani Monroe; however, she was not felt to be a surgical candidate and underwent PCI during a recent admission. 5. CORONARY ARTERY DISEASE: She is status post non-STEMI with three-vessel CAD (occluded ostial RCA, 70% calcific proximal LAD, 90% proximal circumflex) per left heart catheterization on 03/20/17. She is now s/p stenting of the mid LAD with a ANGELA, orbital atherectomy of the proximal circumflex, and stenting of the proximal circumflex with a ANGELA on 05/03/17. Continue aspirin, plavix, statin , beta hector. 6. TYPE 2 DIABETES MELLITUS: Continue accuchecks ACHS with sliding scale insulin. 7. HYPERLIPIDEMIA: Continue lipid lowering agent. 8. MITRAL REGURGITATION: Echocardiogram was repeated on 04/05/2017 and revealed EF 40-45%, mild LVH, moderate aortic insufficiency, mild mitral insufficiency. 9. PENTECOSTAL: I have seen Mrs. Moscoso during her most recent admissions and per prior discussions, it should be noted that Ms. Moscoso is a Religion and is unwilling to take someone else's blood in transfusion. She is willing to consider taking a transfusion from her self at a later time. 10. HYPERKALEMIA: Now back to normal. Her aldactone was stopped and she is receiving regular IV Lasix. 11. HYPERTENSION: Currently well controlled. Will continue to monitor and adjust accordingly. Exam (Progress Note) - Constitutional Vitals: Period Temp Pulse Resp BP Sys/Pina Pulse Ox Last 24 Hr 97.5 F-98.2 F 61-93 16-24 105-136/47-66 94-100 Exam: General: Present: Appears Well, No Apparent Distress. Pleasant and cooperative. Appears comfortable. HEENT: Present: PERRL, Normocephaly, atraumatic. Mucus Membranes Moist. No jaundice noted. Conjunctiva moist and clear, sclerae anicteric Neck: Present: Supple Neck, Midline Trachea, No Masses, No Bruit, No tenderness Cardiac: Present: Regular Rate and Rhythm, Systolic Murmur Lungs: Present: Few Bibasilar rales posteriorly, otherwise Clear to auscultation bilaterally, no wheeze, rhonchi. Neuro: Present: Awake, alert, and oriented x3. Moves all extremities well without hemiparesis or paralysis. Grossly Intact. Absent: Resting Tremor, Essential Tremor Abdomen: Present: Soft, Active Bowel Sounds, No Masses, Non-Tender, nondistended. No abdominal bruit or thrill noted. Skin: Present: Clear. Absent: Rash, No skin breakdown. Back: Normal inspection, no vertebral tenderness. Musculoskeletal: Present: No Fluid Collection, No Pain, Normal Range of Motion Extremities: Present: Normal Gait, No Clubbing, No Cyanosis, Upper Extr. Pulses 2+, Lower Extr. Pulses 2+, 1+ edema to BLE. Capillary refill less than 3 seconds. Result/EKG - Labs CBC & BMP: 06/25/17 03:00 06/26/17 05:08 Lab Results: I have reviewed the past 24 hour labs Labs: Laboratory Results - last 24 hr 06/25/17 06/25/17 06/25/17 11:14 16:44 21:16 Sodium Potassium Chloride Carbon Dioxide Anion Gap BUN Creatinine GFR Calculation BUN/Creatinine Ratio Glucose POC Glucose 195 H 192 H 213 H Calculated Osmolality Calcium 06/26/17 06/26/17 05:08 08:07 Sodium 134 L Potassium 4.9 Chloride 101 Carbon Dioxide 27 Anion Gap 10.9 BUN 96 H Creatinine 2.60 H GFR Calculation 15 BUN/Creatinine Ratio 36.00 H Glucose 112 H POC Glucose 124 H Calculated Osmolality 298.2 Calcium 8.6 - EKG EKG results: interpreted by me, sinus rhythm Specialty Discharge - Follow Up or Referrals Follow up with: Arsenio Medley MD [Physician] - <Rufus Alfaro - Last Filed: 06/26/17 13:20> Assessment and Plan (1) Ventricular tachycardia Status: Acute Assessment and plan: Interviewed and examined the patient personally. Discussed findings with the nurse practitioner. I agree with the assessment and plan, with additions as below. 76y BF, ICM, mod AI, Johavah's witness. She refused cardiac surgery in the past and she declines blood transfusions. Underwent staged PCI 2 months ago. She was admitted with tachycardia, CHF exacerbation. Prior to this, her diuretics were decreased and she also noticed some edema. On admission, she was found to be in atrial fibrillation Review of EKG confirms slow, regular ventricular tachycardia, with VA dissociation and captured beats. Right bundle branch block/left superior axis. She converted to sinus rhythm, with BB. Telemetry shows sinus rhythm, with occasional ventricular ectopy, no atrial fibrillation. One run of supraventricular tachycardia, suggestive of sinus or atrial tachycardia. Discussed risks and benefits of management options. I see him, ejection fraction around 25-30%, CHF class II-III, documented sustained ventricular tachycardia. Her CHF. Fluid during his hospital stay. CKD stage IV. -She will discussed with her and likely will agree to proceed with a defibrillator implant. We will plan for a dual-chamber ICD implant, with defibrillator testing, under MAC tomorrow a.m. Keep n.p.o. after midnight. No indication for HOSPITAL PHARMACY DIRECTOR. Documented SVT -we will plan a dual-chamber device. -Increase Coreg to 6.25 mg twice daily. Continue titrating beta-hector, as tolerated stop Cardizem. -Continue aspirin, Plavix, statin. -Severe CKD. Her blood pressure allows, we may add nitrate/hydralazine, after beta-hector dose maxed out -Keep on telemetry Current Visit: Yes Exam (Progress Note) - Constitutional Vitals: Period Temp Pulse Resp BP Sys/Pina Pulse Ox Last 24 Hr 97.5 F-98.1 F 61-93 16-18 101-136/50-66 94-100 Result/EKG - Labs CBC & BMP: 06/25/17 03:00 06/26/17 05:08 Labs: Laboratory Results - last 24 hr 06/25/17 06/25/17 06/25/17 11:14 16:44 21:16 Sodium Potassium Chloride Carbon Dioxide Anion Gap BUN Creatinine GFR Calculation BUN/Creatinine Ratio Glucose POC Glucose 195 H 192 H 213 H Calculated Osmolality Calcium 06/26/17 06/26/17 06/26/17 05:08 08:07 11:00 Sodium 134 L Potassium 4.9 Chloride 101 Carbon Dioxide 27 Anion Gap 10.9 BUN 96 H Creatinine 2.60 H GFR Calculation 15 BUN/Creatinine Ratio 36.00 H Glucose 112 H POC Glucose 124 H 295 H Calculated Osmolality 298.2 Calcium 8.6
--- NOTE | 2017-06-26 17:53 | Hospitalist Progress Note ---
Assessment and Plan (1) Atrial fibrillation with RVR Status: Acute Assessment and plan: cont coreg, current SR, would not anticoag, pacer and ICD Current Visit: Yes (2) Type 2 diabetes mellitus Status: Chronic Assessment and plan: started lantus Current Visit: Yes (3) Acute on chronic renal failure Status: Acute Assessment and plan: consult renal Current Visit: Yes (4) Acute on chronic systolic heart failure Status: Acute Assessment and plan: coreg, lasix IV started Current Visit: Yes Hospitalist: Subjective Interval history: Patient has congestive heart failure and was not started on any Lasix. I have started it myself. Patient is not as short of breath as she usually is. She is a Bahai and does not receive blood. She does have about bad valves but [place] has refused to do surgery on her due to her being a Bahai. She is currently in sinus rhythm Exam - Constitutional Vitals: Period Temp Pulse Resp BP Sys/Pina Pulse Ox Last 24 Hr 97.5 F-98.1 F 61-78 16-18 101-136/50-66 94-100 Exam: Heart Rate-[RRR] Lungs-[clear but diminished] GI-[+bs soft, NT] Ext-[2+ edema] Neuro [Motor 5/5], [alert and oriented times 3] psych [normal mood and affect] General [no acute distress] Results - Labs CBC & BMP: 06/25/17 03:00 06/26/17 05:08 Lab Results: I have reviewed the past 24 hour labs - Diagnostic Findings Procedure: Chest x-ray: report reviewed by me (mild chf) Specialty Discharge - Follow Up or Referrals Follow up with: Arsenio Medley MD [Physician] -
[2017-06-26] MEDS: FUROSEMIDE 40 MG/4 ML VIAL IV SCH (18:34)
[2017-06-26] MEDS: CARVEDILOL 6.25 MG TABLET PO SCH (22:02)
[2017-06-27 04:59] LABS: Eosinophils # 0.2 10*3/uL (0.0-0.87); Eosinophils % 2.3 % (0.00-10.9); Hematocrit 26.5 VOL% (35.7-47.0); Hemoglobin 8.8 GM/DL (12.0-16.0); Immature Granulocytes % 0.3 %; Immature Granulocytes Absolute 0.02 #; Lymphocytes # 1.7 10*3/uL (1.4-4.0); Lymphocytes % 25.9 % (21.3-54.2); Mean Corpuscular HGB Conc 33.2 GM/DL (32-36); Mean Corpuscular Hemoglobin 29 PG (27-34); Mean Corpuscular Volume 86.9 FL (87-102); Mean Platelet Volume 10.2 FL (9.6-12.0); Monocytes # 0.8 10*3/uL (0.11-0.8); Monocytes % 12.5 % (1.7-12.7); Neutrophils # 3.9 10*3/uL (1.4-7.4); Platelet Count 199 T/CUMM (130-400); Red Blood Count 3.05 MC/CUMM (3.8-5.5); Red Cell Distribution Width 16.7 % (9.3-17.3); White Blood Count 6.6 T/CUMM (4-12)
[2017-06-27 05:30] LABS: Calcium 8.2 MG/DL (8.5-10.1); Osmolality,Calculated 299.1 MOS/KG (273-304); Potassium 5.1 MMOL/L (3.5-5.1)
[2017-06-27] MEDS ORDERED: ceFAZolin 1,000 MG VIAL IRRIG ONE (07:00)
--- NOTE | 2017-06-27 07:46 | History and Physical Update ---
Sedation H&P Update - History and Physical H&P was reviewed, the patient examined and there: are no changes in the patients condition since last H&P was completed. - Dictation Physical: refer to H&P completed by admitting physician - Physical Exam Mental Status: alert and oriented Heart: regular rate and rhythm Lung: clear to auscultation Abdomen: within normal limits Vitals: within normal limits - Sedation Plan for Sedation: MAC Patient Consent: Procedure disscussed with patient and patinet has consented., Risks and benefits were discussed with patient,including infection,, bleeding, injury to surrounding structures, seizure, temporary nerve, Patient understands and accepts potential risks/benefits and agrees to ASA Class: IV Airway Assessment: Class II: Soft palate, uvula, fauces visible
--- NOTE | 2017-06-27 08:11 | EKG Report ---
Stationary ECG Study [facility] Test Date: 06/27/2017 8:10:13 AM Pat Name: THADDEUS AN Department: Room: 295 Gender: F Rate Inserter: TARAH : 1940 Requested by: Rufus Alfaro Order Number: [id number] Reading MD: SHANTE MCKEON Intervals [place] Rate: 62 P: 75 [place]: 199 QRS: 97 QRSD: 94 T: 40 QT: 439 QTc: 444 Interpretive Statements SINUS RHYTHM BORDERLINE RIGHT AXIS DEVIATION NONSPECIFIC T-WAVE ABNORMALITY Electronically Signed On 06-27-17 08:37:38 CDT by SHANTE MCKEON [email or web address]
[2017-06-27] MEDS: INSULIN LISPRO 100 UNIT/ML SUBCUT SCH ×4 (08:13→20:54)
[2017-06-27] MEDS: OFLOXACIN 0.3% OPH SOLN 10 ML BOTTLE LEFT EYE SCH ×4 (08:58→21:21)
[2017-06-27] MEDS: CARVEDILOL 6.25 MG TABLET PO SCH ×2 (08:58→20:53)
[2017-06-27] MEDS: CLOPIDOGREL 75 MG TABLET PO SCH (08:58)
[2017-06-27] MEDS: INSULIN GLARGINE 100 UNIT/ML SUBCUT SCH (09:04)
[2017-06-27] MEDS: ATORVASTATIN 80 MG TABLET PO SCH (09:04)
[2017-06-27] MEDS: ASPIRIN CHEW 81 MG TABLET PO SCH (09:04)
[2017-06-27] MEDS: ENOXAPARIN 30 MG/0.3 ML SYRINGE SUBCUT SCH (09:04)
[2017-06-27] MEDS ORDERED: LIDOCAINE 1% 20 ML VIAL ONE (10:42)
[2017-06-27] MEDS ORDERED: HEPARIN/NACL 0.9% 2 UNITS/ML 500 ML IV ONE (10:42)
[2017-06-27] MEDS ORDERED: ceFAZolin 1,000 MG VIAL ONE (10:42)
[2017-06-27] MEDS ORDERED: TISSUE ADHESIVE 1 EACH APPLICATOR TOP ONE (12:18)
[2017-06-27] MEDS ORDERED: oxyCODONE/ACETAMINOPHEN 5-325 MG TABLET PO PRN (12:57)
--- NOTE | 2017-06-27 13:06 | Cardiac Defibrillator ---
- Preoperative diagnosis Date of Procedure:: 06/27/17 Preop Diagnosis: sustained ventricular tacharrhythmia, either spontaneous or induced by electrophysiology study, not associated with an acute [place] &not due to transient reversible cause Post-op diagnosis: same Procedure: PROCEDURE SUMMARY DDD ICD implant from left axillary vein access. Defibrillator testing. PLAN Bed rest for 4 hours. Routine post ICD implant site care and activity restrictions. Do not remove pressure dressing until AM. Portable CXR, EKG stat. CXR PA/Lat, device interrogation in AM. Ancef 1g iv. q8h x2. PROCEDURE Informed consent was obtained and a timeout was performed prior to the procedure. The patient was continuously monitored by ECG, pulse oxymetry and NIBP. 1g iv. Ancef was administered prior to the procedure for antibiotic prophylaxis. Monitored anesthesia care was provided by the anesthesia team. The left pectoral area was meticulously prepared with ChloroPrep surgical scrub. Sterile draping was applied and Ioban was used to cover the operation site. The image intensifier was draped with a sterile bag and positioned over the patient's chest. After infiltration with 1% lidocaine, an incision was made in the left infraclavicular area, parallel to the deltopectoral groove. The incision was carried down to the level of the pectoral fascia. A subcutaneous pocket was then created with electrocautery and blunt dissection. Hemostasis was then achieved with electrocautery. A micropuncture needle was used to access the left axillary vein under fluoroscopic guidance. The microfilament was used to introduce the micropuncture sheath, which then was used to introduce and advance a long hydrophylic guidewire into the inferior vena cava. A 10.5 Fr sheath was introduced over the guidewire. The dilator was removed. The right ventricular defibrillator lead was introduced through the sheath. The sheath was then peeled away. The curved stylet was used to move the lead into the right ventricular outflow tract. The stylet was then replaced with a straight stylet and the lead was moved into a stable position in the right ventricular apex. Adequate sensing and pacing threshold was confirmed. The active fixation mechanism was then deployed. Stable signal and pacing threshold was noted, with decrease in pacing impedance. No extracardiac stimulation was noted with high output pacing. The lead was then anchored to the subcutaneous tissue with 2-0 nonabsorbable suture, using the anchoring sleeve near the point of entry to the vein. Another 9 Fr sheath was introduced over the retained guidewire. The dilator was removed. The right atrial pacemaker lead was introduced through the sheath. The sheath was then peeled away. A straight stylet was used to move the lead into the right atrium. The stylet was then replaced with a curved J stylet and the lead was moved into a stable position in the right atrial appendage. Multiple atrial positions were measured and diffuse low amplitude signals were encountered. An anatomically stable spot, with stable signals, with good threshold and without significant farfield artifact was then achieved. Adequate sensing and pacing threshold was confirmed. The active fixation mechanism was then deployed. Stable signal and pacing threshold was noted, with decrease in pacing impedance. No extracardiac stimulation was noted with high output pacing. The lead was then anchored to the subcutaneous tissue with 2-0 nonabsorbable suture, using the anchoring sleeve near the point of entry to the vein. The retained guidewire was removed. The ICD generator was attached to the leads and sealed in the prescribed manner. The wound was flushed with Ancef . The generator was placed into the pocket and tied to the pectoral fascia using 2-0 nonabsorbable suture. Stable lead positions were confirmed with fluoroscopy. Ventricular fibrillation was induced with a T wave shock. The device promptly detected the arrhythmia and terminated it with a single 25J shock. The shock impedance was 38 Ohms. The wound was closed using a double layer of 2-0 absorbable Vicryl sutures, followed by a subcuticular running suture with 4-0 Monocryl, then Exofin. A sterile, then a pressure dressing was applied. The device was then interrogated and programmed as detailed below. The implanted system is MRI conditional. Device Type SN Location Medtronic Evera DR DDD ICD [id number] Left infraclavicular Lead Position Type SN P/R Threshold Impedance RA RA appendage [employer]onic 5076-52 [id number] 0.6 mV 531 V @ 0.5 ms 1.2 Ohm RV RV apex Med[employer]onic 7347W42 [id number] 4.9 mV 0.9 V @ 0.5 ms 465 Ohm Bradycardia settings MVPR 60/100 Tachycardia settings VF @320, VT@500 Anesthesia: MAC Surgeon / Physician: Rufus Alfaro Safety Lead: other (Gael Disla) Estimated blood loss: minimal Specimens: none sent Condition: stable Disposition: floor - Medications / Follow-up Referrals: Arsenio Medley MD [Physician] -
--- NOTE | 2017-06-27 13:21 | EKG Report ---
Stationary ECG Study [facility] Test Date: 06/27/2017 1:23:50 PM Pat Name: THADDEUS AN Department: Room: 295 Gender: F Line Server: : 1940 Requested by: Satnam Alfaro Order Number: [id number] Reading MD: SATNAM ALFARO Intervals [place] Rate: 67 P: 7 [place]: 171 QRS: 34 QRSD: 98 T: 26 QT: 444 QTc: 459 Interpretive Statements SINUS RHYTHM NONSPECIFIC T WAVE ABNORMALITY Electronically Signed On 06-27-17 22:32:09 CDT by SATNAM ALFARO [email or web address]
[2017-06-27] MEDS ORDERED: MIDAZOLAM 2 MG/2 ML VIAL ONE (13:23)
--- NOTE | 2017-06-27 13:27 | XRay Report ---
History: Pacemaker lead placement Date: 06/27/2017 at 12:58 PM Study: Chest x-ray single view portable Comparison exam: June 24, 2017 There is mild cardiomegaly. There is no mediastinal mass. The pulmonary vasculature is slightly prominent. There is some mild hazy edema in the mid to lower lungs bilaterally. There is mild left-sided pleural effusion. A left subclavian dual-lead pacemaker/defibrillator device has been placed and is generally intact and generally in satisfactory position. There is no evidence of pneumothorax. Osseous structures are similar. Impression: No evidence of pneumothorax following pacemaker placement. Changes of congestive heart failure with worsening pulmonary edema compared to the earlier study PROCEDURE INTERPRETED AT [facility] DEPARTMENT OF RADIOLOGY Final Report Signed by: Dr. Anna Isaacs
--- NOTE | 2017-06-27 13:31 | Anesthesia Post-Op ---
Anesthesia Post OP - Post Ansesthetic Evaluation Patient seen in post op: Yes Resp: within normal limits CV: within normal limits Mental: within normal limits Temp: within normal limits Dair-Yk-Hgxsytzed: within normal limits Nausea and Vomiting: within normal limits Pain: within normal limits
--- NOTE | 2017-06-27 14:31 | Nephrology Consult Note ---
History of Present Illness Chief complaint: Acute on Chronic Renal Failure History of present illness: Ms. Moscoso is a 76 year old female with known coronary artery disease and valvular heart disease. Creatinine 2 months ago was 1.9 and she presented with atrial fib rapid ventricular response and creatinine of 3 on the ninth that is fallen daily and is now 2.4. She underwent permanent pacer defibrillator placement today. When seen she is alert and in no distress her neck without jugular venous distention heart without rub or gallop chest is clear and the extremities are without peripheral edema. Her serum creatinine is improved during his hospital stay as mentioned. Impression chronic renal failure with acute worsening due to altered intrarenal blood flow related to her arrhythmia and heart disease. #2 history of coronary artery disease and congestive failure Plan we will follow her creatinine and she is approaching her baseline renal function. Home Medications Medication Instructions Recorded Confirmed Type Ofloxacin 0.3% Oph Soln [Ocuflox 1 drop LEFT EYE QID 03/17/17 06/26/17 History 0.3% Oph Soln] Multivit,Iron,Mins/Folic Acid 1 each PO DAILY 04/26/17 06/25/17 History [Centrum Specialist Heart Tab] Aspirin Chew Tab 81 mg PO DAILY tablet 05/10/17 06/24/17 Rx Atorvastatin [Lipitor] 80 mg PO DAILY tablet 05/10/17 06/25/17 Rx Carvedilol [Coreg] 3.125 mg PO BID tablet 05/10/17 06/25/17 Rx Clopidogrel [Plavix] 75 mg PO DAILY tablet 05/10/17 06/25/17 Rx Spironolactone [Aldactone] 25 mg PO DAILY tablet 05/10/17 06/25/17 Rx Cilostazol 50 mg PO BID 06/24/17 06/25/17 History Furosemide 120 mg PO BID 06/24/17 06/25/17 History Glyburide/Metformin HCl 2 each PO BID 06/24/17 06/25/17 History [Glyburide-Metformin 2.5-500 mg] Omeprazole 20 mg PO DAILY 06/24/17 06/25/17 History Potassium Chloride 20 meq PO DAILY 06/24/17 06/25/17 History Saxagliptin HCl [Onglyza] 5 mg PO DAILY 06/24/17 06/25/17 History Furosemide Tab [Lasix Tab] 120 mg PO BID DIURETIC 06/26/17 06/26/17 History Multivitamin [Multivitamins] 1 each PO DAILY 06/26/17 06/26/17 History Allergies Allergy/AdvReac Type Severity Reaction Status Date / Time No Known Allergies Allergy Verified 06/24/17 03:02 Medical,Surgical,& Family Hx - Medical History Cardio: History of: Cardiac Dysrhythmia, CHF (Chronic systolic heart failure.), CAD (PCI 10/19/2011 & 05/03/2017), Hypertension, [place], PVD (Peripheral Stent x2.), Valvular Heart Disease (aortic and mitral insufficiency ) No history of: Pacemaker Neurology: No history of: Cerebrovascular Accident HEENT: History of: Eye Problem (bleeding behind retinas) Endocrine: History of: Diabetes Mellitus (NIDDM), Dyslipidemia, Thyroid Disorder Respiratory: History of: Intubation (04/2017), Pneumonia No history of: Asthma, COPD, Pulmonary Embolism Renal: History of: Renal Failure (CKD Stage III) Gastrointestinal: No history of: GERD Musculoskeletal: History of: Back/Neck Problems (1971) Hematology: History of: Anemia No history of: Blood Transfusion Reaction Other: No history of: Anesthesia Reactions, Cancer - Surgical History Cardiac Surgeries: Sugical HX of: Cardiac Catheterization (2 stents to the RCA and one stent to the left circumflex on October 19, 2011), Cardiac Surgery ( Recent stent LAD and circumflex April 2017.) HEENT Surgeries: Patient denies: Tonsilectomy & Adenoidectomy Abdominal Surgeries: Patient denies: Abdominal Surgery Reproductive Surgeries: Surgical HX of;: Gynecologic Surgery, Hysterectomy Orthopedic Surgeries: Patient denies;: Orthopedic Surgery - Family History Family History: Reports;: Family Cancer (Brother (leukemia)), Family Heart Disease, Family Hypertension, Family Stroke - Social History Smoking Status: Never smoker Frequency of Alcohol Use: None Type of Drug Use: None Review of Systems 12 point system: reviewed and no additional remarkable complaints except as stated Exam - Vital Signs Vital signs: Period Temp Pulse Resp BP Sys/Pina Pulse Ox Last 24 Hr 98 F-99.3 F 64-108 15-20 93-124/54-58 96-98 - General Appearance General appearance: well-developed, well-nourished, appears started age Neck: no JVD, no thyromegaly, no carotid bruit, supple Respiratory: no kyphosis, no scoliosis Cardiology: no murmurs, no rub, no gallops, no edema, regular rate, regular rhythm, normal S1, normal S2 Gastrointestinal: normoactive bowel sounds Integumentary: no rash, warm and dry Neurologic: no focal deficit, no asterixis, alert and oriented x3, reflexes 2+ and symmetric, gait normal, strength 5/5 Musculoskeletal: no deformities, no erythema, no cyanosis, no clubbing Psychiatric: mood/affect appropriate, cooperative Results - Labs CBC & BMP: 06/27/17 04:49 06/27/17 04:49 Assessment and Plan - Time spent with patient Time spent with patient: Greater than 30 minutes (1) Acute on chronic renal failure Status: Acute Current Visit: Yes (2) Acute on chronic systolic heart failure Status: Acute Current Visit: Yes Specialty Discharge - Follow Up or Referrals Follow up with: Arsenio Medley MD [Physician] -
[2017-06-27] MEDS: FUROSEMIDE 40 MG/4 ML VIAL IV SCH ×2 (15:37→17:13)
[2017-06-27] MEDS ORDERED: MAGNESIUM HYDROXIDE SUSP 30 ML UDCUP PO PRN (16:35)
--- NOTE | 2017-06-27 16:37 | Hospitalist Progress Note ---
Assessment and Plan (1) Atrial fibrillation with RVR Status: Acute Assessment and plan: cont coreg, s/p pacer and ICD Current Visit: Yes (2) Type 2 diabetes mellitus Status: Chronic Assessment and plan: cont lantus Current Visit: Yes (3) Acute on chronic renal failure Status: Acute Assessment and plan: Thanks for input from priya Maxwell to monitor Current Visit: Yes (4) Acute on chronic systolic heart failure Status: Acute Assessment and plan: cont coreg and lasix IV Current Visit: Yes Hospitalist: Subjective Interval history: She received a defibrillator/pacemaker today by Dr. Alfaro. She was complaining of some constipation she has not had a bowel movement for several days. Patient 's speech was a little bit slurred but she had just come back from sedation for her defibrillator pacemaker I am concerned about her renal insufficiency and asked Dr. Lafleur to see her today. Her potassium is high at 5.1 Exam - Constitutional Vitals: Period Temp Pulse Resp BP Sys/Pina Pulse Ox Last 24 Hr 98 F-99.3 F 64-108 15-20 93-152/54-67 96-98 Exam: Heart Rate-[RRR] Lungs-[clear but diminished] GI-[+bs soft, NT] Ext-[2+ edema] Neuro [Motor 5/5], [alert and oriented times 3] psych [normal mood and affect] General [no acute distress] Results - Labs CBC & BMP: 06/27/17 04:49 06/27/17 04:49 Lab Results: I have reviewed the past 24 hour labs - Diagnostic Findings Procedure: Chest x-ray: report reviewed by me (No evidence of pneumothorax following pacemaker placement but changes consistent with worsening pulmonary edema) Quality Measures - VTE Contraindication to Pharmacological VTE Prophylaxis: High Risk of Bleeding Specialty Discharge - Follow Up or Referrals Follow up with: Arsenio Medley MD [Physician] -
[2017-06-28 03:54] LABS: Eosinophils # 0.1 10*3/uL (0.0-0.87); Eosinophils % 1.9 % (0.00-10.9); Hematocrit 27.3 VOL% (35.7-47.0); Immature Granulocytes % 0.4 %; Immature Granulocytes Absolute 0.03 #; Lymphocytes # 1.3 10*3/uL (1.4-4.0); Mean Corpuscular Hemoglobin 29 PG (27-34); Mean Corpuscular Volume 88.3 FL (87-102); Mean Platelet Volume 10.8 FL (9.6-12.0); Monocytes # 0.7 10*3/uL (0.11-0.8); Monocytes % 10.3 % (1.7-12.7); Neutrophils # 4.7 10*3/uL (1.4-7.4); Neutrophils % 68.4 % (38.7-73.9); Platelet Count 237 T/CUMM (130-400); Red Blood Count 3.09 MC/CUMM (3.8-5.5); Red Cell Distribution Width 16.9 % (9.3-17.3); White Blood Count 6.9 T/CUMM (4-12)
[2017-06-28 04:37] LABS: Calcium 8.4 MG/DL (8.5-10.1); Osmolality,Calculated 305.5 MOS/KG (273-304); Potassium 5.3 MMOL/L (3.5-5.1)
--- NOTE | 2017-06-28 07:30 | XRay Report ---
2 view chest 06/28/2017 4:00 AM Indication: Shortness of breath Comparison: Previous day at 1258 hours Findings: Cardiomediastinal contours are stable with underlying cardiomegaly and no change in defibrillator placement. Improving pulmonary edema pattern with likely no change in the trace bilateral pleural effusions. No acute osseous abnormalities. Visualized upper abdomen demonstrates no acute pathology. Impression: Improving pulmonary edema pattern with no change small pleural effusions PROCEDURE INTERPRETED AT [facility] DEPARTMENT OF RADIOLOGY Final Report Signed by: Mathew Saxena
--- NOTE | 2017-06-28 08:51 | Nephrology Progress Note ---
Nephrology - PN: Subj Interval history: Ms. Moscoso is seen in follow-up of her renal impairment. She is doing well post pacer defibrillator insertion. She has a creatinine today of 2.8 which is up slightly. She is eating and has a stable blood pressure. She has no ongoing renal insult and her drugs did not have any nephrotoxic potential. I think she will slowly drop her creatinine toward baseline. Exam (PN)-Nephrology - Vital Signs Vital signs: Period Temp Pulse Resp BP Sys/Pina Pulse Ox Last 24 Hr 98.2 F-100.2 F 62-69 16-20 118-168/49-68 97-98 - Lab 06/28/17 02:50 06/28/17 02:50 Most recent lab results Calcium 8.4 MG/DL (8.5-10.1) L 06/28/17 02:50 Magnesium 2.7 MG/DL (1.8-2.4) H 06/28/17 02:50 Assessment and Plan (1) Acute on chronic renal failure Status: Acute Current Visit: Yes (2) Acute on chronic systolic heart failure Status: Acute Current Visit: Yes Specialty Discharge - Follow Up or Referrals Follow up with: Arsenio Medley MD [Physician] -
[2017-06-28] MEDS: INSULIN LISPRO 100 UNIT/ML SUBCUT SCH ×2 (09:36→12:33)
[2017-06-28] MEDS: FUROSEMIDE 40 MG/4 ML VIAL IV SCH (09:37)
--- NOTE | 2017-06-28 10:05 | Discharge Summary ---
<Jose Luis Stevenson - Last Filed: 06/28/17 11:07> Hospital Course - Hospital Course Hospital Course: Ms. Moscoso is a 76 yr old female patient well known to our service that presented to the ED on 06/24 for further evaluation of weakness and decreased blood sugars and blood pressure. She has a history of htn, chf, CAD, valvular heart disease, OH with stents, and PVD. In the ED at presentation, Ms. Moscoso reported that she noted her blood pressures and blood sugars were low. She brought a log which was reviewed by staff and revealed fluctuations of blood sugars from 56-100. Patient was on oral medications for her sugars and with her portal renal clearance it was causing her hypoglycemia. Patient can no longer use oral agents and must be on Levemir 15 units daily. Blood pressures were noted to have systolic bps in 90-100 range. Pt. also reported shortness of breath and recently being told to stop lasix and increased swelling after doing so. Labs were obtained in ED and bun/creatinine noted to be 100/3 up from 56/ 1.9 on a May 24 visit. Pt. also noted to have an elevated K at 5.9. Additionally, during exam by hospitalist she was noted to go into afib. She was admitted for further evaluation and treatment of afib, acute on chronic systolic CHF, hyperkalemia, and dm. Cardiology and nephrology were consulted to assist in the care of the patient. Pt. was diuresed with IV lasix and saw some improvement in swelling to extremities. Pt. was able to be converted to sinus rhythm with IV beta blockers. 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 She was continued on asa. Pt. had ICD/pacer placed on 06/27. She tolerated the procedure well. Patient's hemoglobin is stable. Nephrology followed the patient's creatinine and it has improved during this hospitalization. Pt. is stable today and can be discharged home with follow-up by Dr. Medley for CHF, Dr. Alfaro for pacer ICD, Dr. Lafleur and [facility]. Patient seen and examined. Hospital course reviewed and edited. Specialty Discharge - Follow Up or Referrals Follow up with: [facility] [Provider Group] - 07/14/17 11:00 am Rufus Alfaro MD [Physician] - 07/06/17 12:50 pm (Follow up with Dr. Alfaro in 1 week for ICD check. ) Abhilash Lafleur MD [Physician] - 08/09/17 9:45 am Arsenio Medley MD [Physician] - 07/17/17 1:00 pm (Follow up with Dr. Medley in 2-4 weeks. ) Discharge Plan - Discharge Data Disposition: Home Health Service - Discharge Medications New cephALEXin [Keflex] 500 mg PO Q12HR #10 capsule Insulin Detemir [Levemir FlexPen] 15 unit SUBCUT DAILY #3 ml Furosemide Tab [Lasix Tab] 80 mg PO BID DIURETIC #60 tablet Continue Ofloxacin 0.3% Oph Soln [Ocuflox 0.3% Oph Soln] 1 drop LEFT EYE QID Aspirin Chew Tab 81 mg PO DAILY tablet Atorvastatin [Lipitor] 80 mg PO DAILY tablet Clopidogrel [Plavix] 75 mg PO DAILY tablet Cilostazol 50 mg PO BID Omeprazole 20 mg PO DAILY Multivit,Iron,Mins/Folic Acid [Centrum Specialist Heart Tab] 1 each PO DAILY Multivitamin [Multivitamins] 1 each PO DAILY Changed Carvedilol [Coreg] 6.25 mg PO BID #120 tablet Discontinued Spironolactone [Aldactone] 25 mg PO DAILY tablet Glyburide/Metformin HCl [Glyburide-Metformin 2.5-500 mg] 2 each PO BID Saxagliptin HCl [Onglyza] 5 mg PO DAILY Potassium Chloride 20 meq PO DAILY Furosemide 120 mg PO BID Furosemide Tab [Lasix Tab] 120 mg PO BID DIURETIC - Follow Up or Referral Follow Up: [facility] [Provider Group] - 07/14/17 11:00 am Rufus Alfaro MD [Physician] - 07/06/17 12:50 pm (Follow up with Dr. Alfaro in 1 week for ICD check. ) Abhilash Lafleur MD [Physician] - 08/09/17 9:45 am Arsenio Medley MD [Physician] - 07/17/17 1:00 pm (Follow up with Dr. Medley in 2-4 weeks. ) - Forms/Instructions Instructions: Pacemaker (DC), Diabetic Hyperglycemia (DC) Exam - Constitutional Vitals: Period Temp Pulse Resp BP Sys/Pina Pulse Ox Last 24 Hr 98.2 F-100.2 F 62-69 16-20 118-168/49-68 97-98 Discharge Results Labs on day of discharge: Labs from last 24 hours 06/28/17 06/28/17 06/28/17 08:14 02:50 02:50 WBC 6.9 RBC 3.09 L Hgb 9.0 L Hct 27.3 L MCV 88.3 MCH 29 MCHC 33.0 RDW 16.9 Plt Count 237 MPV 10.8 Neut % (Auto) 68.4 Lymph % (Auto) 19.0 L [place] % (Auto) 10.3 Eos % (Auto) 1.9 Baso % (Auto) 0.0 Neut # (Auto) 4.7 Lymph # (Auto) 1.3 L [place] # (Auto) 0.7 Eos # (Auto) 0.1 Baso # (Auto) 0.0 Immature Gran % 0.4 Nucleated RBC % 0.0 Immature Gran # 0.03 Nucleated RBCs # 0.00 Immature Plt Fraction 0.0 Sodium Potassium Chloride Carbon Dioxide Anion Gap BUN Creatinine GFR Calculation BUN/Creatinine Ratio Glucose POC Glucose 182 H Calculated Osmolality Calcium Magnesium 2.7 H 06/28/17 06/27/17 06/27/17 02:50 20:09 14:59 WBC RBC Hgb Hct MCV MCH MCHC RDW Plt Count MPV Neut % (Auto) Lymph % (Auto) [place] % (Auto) Eos % (Auto) Baso % (Auto) Neut # (Auto) Lymph # (Auto) [place] # (Auto) Eos # (Auto) Baso # (Auto) Immature Gran % Nucleated RBC % Immature Gran # Nucleated RBCs # Immature Plt Fraction Sodium 139 Potassium 5.3 H Chloride 105 Carbon Dioxide 27 Anion Gap 12.3 BUN 87 H Creatinine 2.80 H GFR Calculation 14 BUN/Creatinine Ratio 31.00 H Glucose 142 H POC Glucose 310 H 148 H Calculated Osmolality 305.5 H Calcium 8.4 L Magnesium DS: Provider Date of admission: 06/24/17 05:13 Primary care physician: Adam Juárez MD Attending physician on admission: Venkat Valdez MD Consults: 06/24/17 05:32 Consult to Physician [CONS] Routine Comment: Consulting Provider: Neville Kirkpatrick 06/26/17 17:55 Consult to Physician [CONS] Routine Comment: worsening renal function Consulting Provider: Jeff Vásquez Jr. 06/28/17 10:03 Consult to [facility], Educator [CONS] Routine Reason for Assembler Watch Train: Initial Insulin Education Discharging clinician: Jose Luis Stevenson NP <Aurelia Brizuela - Last Filed: 06/28/17 16:02> Hospital Course - Time spent with patient Time with patient DS: Greater than 30 minutes (50 min) Diagnosis - Discharge Diagnosis (1) Atrial fibrillation with RVR Status: Acute (2) Type 2 diabetes mellitus Status: Chronic (3) Acute on chronic renal failure Status: Acute (4) Acute on chronic systolic heart failure Status: Acute Discharge Plan - Discharge Data Condition at Discharge: Stable Discharge Diet: diabetic diet Activity: resume usual activities as tolerated, as per physical therapy Weight Bearing at Discharge: full weight bearing Driving: not until seen by doctor Exam - Constitutional General appearance: normal weight, no acute distress - Cardiovascular Cardiovascular exam: Present: regular rate and rhythm, systolic murmur - GI/Abdominal GI/Abdominal exam: Present: normal bowel sounds, soft - Extremities Exam Extremities exam: Present: edema (trace but improving ) - Neurological Exam Neurological exam: Present: alert, oriented X3 - Psychiatric Psychiatric exam: Present: normal affect, normal mood
[2017-06-28] MEDS: INSULIN GLARGINE 100 UNIT/ML SUBCUT SCH (10:28)
[2017-06-28] MEDS: ENOXAPARIN 30 MG/0.3 ML SYRINGE SUBCUT SCH (10:30)
[2017-06-28] MEDS: OFLOXACIN 0.3% OPH SOLN 10 ML BOTTLE LEFT EYE SCH (10:31)
[2017-06-28] MEDS: ATORVASTATIN 80 MG TABLET PO SCH (10:31)
[2017-06-28] MEDS: ASPIRIN CHEW 81 MG TABLET PO SCH (10:31)
[2017-06-28] MEDS: CLOPIDOGREL 75 MG TABLET PO SCH (10:31)
[2017-06-28] MEDS: CARVEDILOL 6.25 MG TABLET PO SCH (10:31)
--- NOTE | 2017-06-28 10:47 | Cardiology Progress Note ---
Assessment and Plan - Time spent with patient Time spent with patient: Less than 30 minutes (1) Ventricular tachycardia Status: Acute Assessment and plan: See plan of care listed below. Current Visit: Yes (2) Acute on chronic systolic heart failure Status: Acute Assessment and plan: See plan of care listed below. Current Visit: Yes (3) CKD (chronic kidney disease), stage IV Status: Chronic Assessment and plan: See plan of care listed below. Current Visit: Yes (4) Aortic stenosis Status: Chronic Assessment and plan: See plan of care listed below. Current Visit: No (5) Coronary artery disease Status: Chronic Assessment and plan: See plan of care listed below. Current Visit: No Qualifiers: Coronary Disease-Associated Artery/Lesion type: [place] artery [place] vs. transplanted heart: [place] heart Associated angina: without angina Qualified Code(s): I25.10 - Atherosclerotic heart disease of [place] coronary artery without angina pectoris (6) Type 2 diabetes mellitus Status: Chronic Assessment and plan: See plan of care listed below. Current Visit: Yes (7) Hyperlipidemia Status: Chronic Assessment and plan: See plan of care listed below. Current Visit: No Qualifiers: Hyperlipidemia type: pure hypercholesterolemia Qualified Code(s): E78.00 - Pure hypercholesterolemia, unspecified; E78.0 - Pure hypercholesterolemia (8) Mitral regurgitation Status: Chronic Assessment and plan: See plan of care listed below. Current Visit: No Qualifiers: Cardiac valve disease etiology: nonrheumatic Qualified Code(s): I34.0 - Nonrheumatic mitral (valve) insufficiency (9) Refusal of blood transfusions as patient is Religious Status: Chronic Assessment and plan: See plan of care listed below. Current Visit: No (10) Hyperkalemia Status: Acute Assessment and plan: See plan of care listed below. Current Visit: Yes (11) Hypertension Status: Chronic Assessment and plan: See plan of care listed below. Current Visit: No Cardiology - PN: Subj Interval history: [employer] Specialist: Dr. Medley SUMMARY: Ms. Moscoso is a 76 year old female who presented with atrial fibrillation with rapid ventricular response and acute on chronic systolic CHF. She is very familiar to our service and is known to have a history of coronary artery disease, aortic insufficiency, mitral regurgitation, recurrent congestive heart failure, diabetes, hyperlipidemia, and hypertension. She is status post non-STEMI with three-vessel CAD (occluded ostial RCA, 70% calcific proximal LAD, 90% proximal circumflex) per left heart catheterization on 03/20/17. She was referred to [facility] where Dr. Giovani Monroe reviewed her studies and agrees that she likely has moderate valve disease in both the mitral position from the stenosis standpoint and moderate /AI consistent with her most recent echo on 04/05/17 which revealed an EF of 40-45%, mild LVH, moderate aortic insufficiency, mild mitral insufficiency. She is now s/p stenting of the mid LAD with a ANGELA, orbital atherectomy of the proximal circumflex, and stenting of the proximal circumflex with a ANGELA on 05/03/17. Dr. Alfaro reviewed her chart and confirmed she had slow, regular ventricular tachycardia with VA dissociation and captured beats; right bundle branch block/ left superior axis. 2016: Ms. Moscoso is doing well today. She reports she is feeling much better today. ICD has checked out good. She did run a low grade fever of 100.2 last night. We will start her on Keflex 500mg PO BID for 5 days. She will be given a handwritten prescription as [facility] does not accept electronic prescriptions. She is okay for discharge from cardiology standpoint. At this time, we have nothing further to add and will sign off her case. Please contact us if we can be of further assistance or if new issues arise. IMPRESSION/PLAN: 1. VT: EKG confirmed slow, regular ventricular tachycardia with VA dissociation and captured beats; right bundle branch block/left superior axis. She had one run of SVT suggestive of sinus or atrial tachycardia noted on her telemetry montior. Now s/p dual chamber ICD. 2. ACUTE ON CHRONIC SCHF: BNP 1690 upon admission and was diuresed with IV Lasix. 3. CHRONIC KIDNEY DISEASE, STAGE IV: Will try to avoid nephrotoxic agents. Creatinine 2.8. Continue to avoid NO/ARB. 4. AORTIC STENOSIS: Echocardiogram was repeated on 04/05/2017 and revealed EF 40 -45%, mild LVH, moderate aortic insufficiency, mild mitral insufficiency. She was transferred to [facility] on 04/12/17 to the care of Dr. Giovani Monroe; however, she was not felt to be a surgical candidate and underwent PCI during a recent admission. 5. CORONARY ARTERY DISEASE: She is status post non-STEMI with three-vessel CAD (occluded ostial RCA, 70% calcific proximal LAD, 90% proximal circumflex) per left heart catheterization on 03/20/17. She is now s/p stenting of the mid LAD with a ANGELA, orbital atherectomy of the proximal circumflex, and stenting of the proximal circumflex with a ANGELA on 05/03/17. Continue aspirin, plavix, statin , beta hector. 6. TYPE 2 DIABETES MELLITUS: Continue accuchecks ACHS with sliding scale insulin. 7. HYPERLIPIDEMIA: Continue lipid lowering agent. 8. MITRAL REGURGITATION: Echocardiogram was repeated on 04/05/2017 and revealed EF 40-45%, mild LVH, moderate aortic insufficiency, mild mitral insufficiency. 9. ADVENT: I have seen Mrs. Moscoso during her most recent admissions and per prior discussions, it should be noted that Ms. Moscoso is a Religious and is unwilling to take someone else's blood in transfusion. She is willing to consider taking a transfusion from her self at a later time. 10. HYPERKALEMIA: 5.3 today. She will continue diuresis with Lasix. 11. HYPERTENSION: Currently well controlled. Will continue to monitor and adjust accordingly. Exam (Progress Note) - Constitutional Vitals: Period Temp Pulse Resp BP Sys/Pina Pulse Ox Last 24 Hr 98.2 F-100.2 F 62-69 16-20 118-168/49-68 97-98 Exam: General: Present: Appears Well, No Apparent Distress. Pleasant and cooperative. Appears comfortable. HEENT: Present: PERRL, Normocephaly, atraumatic. Mucus Membranes Moist. No jaundice noted. Conjunctiva moist and clear, sclerae anicteric Neck: Present: Supple Neck, Midline Trachea, No Masses, No Bruit, No tenderness Cardiac: Present: Regular Rate and Rhythm, Systolic Murmur Lungs: Present: Clear to auscultation bilaterally, no wheeze, rhonchi. Neuro: Present: Awake, alert, and oriented x3. Moves all extremities well without hemiparesis or paralysis. Grossly Intact. Absent: Resting Tremor, Essential Tremor Abdomen: Present: Soft, Active Bowel Sounds, No Masses, Non-Tender, nondistended. No abdominal bruit or thrill noted. Skin: Present: Clear. Left chest wall dressing dry and intact, no redness, edema , or drainage noted. Absent: Rash, No skin breakdown. Back: Normal inspection, no vertebral tenderness. Musculoskeletal: Present: No Fluid Collection, No Pain, Normal Range of Motion Extremities: Present: Normal Gait, No Clubbing, No Cyanosis, Upper Extr. Pulses 2+, Lower Extr. Pulses 2+, 1+ edema to BLE. Capillary refill less than 3 seconds. Result/EKG - Labs CBC & BMP: 06/28/17 02:50 06/28/17 02:50 Lab Results: I have reviewed the past 24 hour labs Labs: Laboratory Results - last 24 hr 06/27/17 06/27/17 06/28/17 14:59 20:09 02:50 WBC RBC Hgb Hct MCV MCH MCHC RDW Plt Count MPV Neut % (Auto) Lymph % (Auto) [place] % (Auto) Eos % (Auto) Baso % (Auto) Neut # (Auto) Lymph # (Auto) [place] # (Auto) Eos # (Auto) Baso # (Auto) Immature Gran % Nucleated RBC % Immature Gran # Nucleated RBCs # Immature Plt Fraction Sodium 139 Potassium 5.3 H Chloride 105 Carbon Dioxide 27 Anion Gap 12.3 BUN 87 H Creatinine 2.80 H GFR Calculation 14 BUN/Creatinine Ratio 31.00 H Glucose 142 H POC Glucose 148 H 310 H Calculated Osmolality 305.5 H Calcium 8.4 L Magnesium 06/28/17 06/28/17 06/28/17 02:50 02:50 08:14 WBC 6.9 RBC 3.09 L Hgb 9.0 L Hct 27.3 L MCV 88.3 MCH 29 MCHC 33.0 RDW 16.9 Plt Count 237 MPV 10.8 Neut % (Auto) 68.4 Lymph % (Auto) 19.0 L [place] % (Auto) 10.3 Eos % (Auto) 1.9 Baso % (Auto) 0.0 Neut # (Auto) 4.7 Lymph # (Auto) 1.3 L [place] # (Auto) 0.7 Eos # (Auto) 0.1 Baso # (Auto) 0.0 Immature Gran % 0.4 Nucleated RBC % 0.0 Immature Gran # 0.03 Nucleated RBCs # 0.00 Immature Plt Fraction 0.0 Sodium Potassium Chloride Carbon Dioxide Anion Gap BUN Creatinine GFR Calculation BUN/Creatinine Ratio Glucose POC Glucose 182 H Calculated Osmolality Calcium Magnesium 2.7 H - EKG EKG results: interpreted by me, sinus rhythm Quality Measures - VTE Contraindication to Pharmacological VTE Prophylaxis: High Risk of Bleeding Specialty Discharge - Follow Up or Referrals Follow up with: [facility] [Provider Group] - 2 Weeks Abhilash Lafleur MD [Physician] - 2 Weeks Arsenio Medley MD [Physician] - 2 Weeks (Follow up with Dr. Medley in 2-4 weeks. ) Rufus Alfaro MD [Physician] - 1 Week (Follow up with Dr. Alfaro in 1 week for ICD check. )
[2017-06-28 12:13] VITALS: BP 132/60
== END 2017-06-28 13:20 | disposition home health service (06) | DRG 226 ==
LOC: N.ED 23:55 → N.EDINP 06-24 05:13 → SUATTDRO 06-24 05:13 → N.CC 06-24 05:24 → N.TELEN 06-25 13:50
PROVIDERS: ADMIT Family Medicine; ATTEND Internal Medicine
PROC: CLDCICD (2017-06-27 12:15)

== ENCOUNTER 2017-09-28 12:52 | Inpatient (IN) ==
[2017-09-28] MEDS ORDERED: FUROSEMIDE 40 MG/4 ML VIAL IV STA (14:58)
[2017-09-28 15:20] LABS: INR 1.2; PT Patient Result 12.4 SECS
[2017-09-28 15:36] LABS: Albumin 2.5 G/DL (3.4-5.0); Bilirubin,Total 0.5 MG/DL (0.2-1.0); Calcium 8.9 MG/DL (8.5-10.1); Osmolality,Calculated 289.7 MOS/KG (273-304); Potassium 5.2 MMOL/L (3.5-5.1); Total Protein 7.1 G/DL (6.4-8.3)
[2017-09-28 15:38] LABS: Magnesium 2.8 MG/DL (1.8-2.4)
[2017-09-28 15:39] LABS: Troponin I Only 0.711 NG/ML (0.00-0.045)
[2017-09-28] MEDS ORDERED: FUROSEMIDE 40 MG/4 ML VIAL ONE (16:21)
[2017-09-28 16:24] LABS: Eosinophils % 0.4 % (0.00-10.9); Hemoglobin 11.7 GM/DL (12.0-16.0); Immature Granulocytes % 0.3 %; Immature Granulocytes Absolute 0.03 #; Lymphocytes # 1.4 10*3/uL (1.4-4.0); Lymphocytes % 15.1 % (21.3-54.2); Mean Corpuscular HGB Conc 32.5 GM/DL (32-36); Mean Corpuscular Hemoglobin 28 PG (27-34); Mean Corpuscular Volume 85.9 FL (87-102); Mean Platelet Volume 10.3 FL (9.6-12.0); Monocytes # 0.7 10*3/uL (0.11-0.8); Monocytes % 7.7 % (1.7-12.7); Neutrophils # 6.9 10*3/uL (1.4-7.4); Neutrophils % 76.5 % (38.7-73.9); Platelet Count 234 T/CUMM (130-400); Red Blood Count 4.19 MC/CUMM (3.8-5.5); Red Cell Distribution Width 15.7 % (9.3-17.3)
[2017-09-28] MEDS ORDERED: ONDANSETRON 4 MG/2 ML VIAL IV PRN (18:16)
[2017-09-28] MEDS ORDERED: guaiFENesin/DM ER 600-30 MG TABLET PO PRN (18:16)
[2017-09-28] MEDS ORDERED: ACETAMINOPHEN 325 MG TABLET PO PRN (18:16)
[2017-09-28] MEDS ORDERED: DOCUSATE SODIUM 100 MG CAPSULE PO PRN (18:16)
[2017-09-28] MEDS ORDERED: MORPHINE 2 MG/1 ML SYRINGE IV PRN (18:16)
[2017-09-28] MEDS ORDERED: GLUCAGON 1 MG VIAL IM PRN (18:16)
[2017-09-28] MEDS ORDERED: DEXTROSE 50% 25 GM/50 ML VIAL IV PRN (18:16)
[2017-09-28] MEDS: INSULIN LISPRO 100 UNIT/ML SUBCUT SCH (21:57)
[2017-09-29] MEDS: diphenhydrAMINE CAP 25 MG CAPSULE PO PRN ×2 (01:26→21:18)
[2017-09-29] MEDS: FUROSEMIDE 40 MG/4 ML VIAL IV SCH ×3 (01:26→09:12)
[2017-09-29 04:49] LABS: Basophils % 0.1 % (0.0-0.8); Eosinophils % 0.5 % (0.00-10.9); Hematocrit 34.4 VOL% (35.7-47.0); Hemoglobin 11.1 GM/DL (12.0-16.0); Immature Granulocytes % 0.4 %; Immature Granulocytes Absolute 0.03 #; Lymphocytes # 1.2 10*3/uL (1.4-4.0); Lymphocytes % 14.2 % (21.3-54.2); Mean Corpuscular HGB Conc 32.3 GM/DL (32-36); Mean Corpuscular Hemoglobin 28 PG (27-34); Mean Corpuscular Volume 86.6 FL (87-102); Mean Platelet Volume 10.4 FL (9.6-12.0); Monocytes # 0.8 10*3/uL (0.11-0.8); Monocytes % 9.5 % (1.7-12.7); Neutrophils # 6.4 10*3/uL (1.4-7.4); Neutrophils % 75.3 % (38.7-73.9); Platelet Count 233 T/CUMM (130-400); Red Blood Count 3.97 MC/CUMM (3.8-5.5); Red Cell Distribution Width 15.6 % (9.3-17.3); White Blood Count 8.5 T/CUMM (4-12)
[2017-09-29 05:17] LABS: Calcium 8.7 MG/DL (8.5-10.1); Magnesium 2.7 MG/DL (1.8-2.4); Osmolality,Calculated 302.5 MOS/KG (273-304); Potassium 4.8 MMOL/L (3.5-5.1)
[2017-09-29] MEDS ORDERED: FUROSEMIDE 80 MG TABLET PO SCH (09:09)
[2017-09-29] MEDS: PANTOPRAZOLE 40 MG TABLET PO SCH (09:15)
[2017-09-29] MEDS: INSULIN LISPRO 100 UNIT/ML SUBCUT SCH ×2 (09:15→16:14)
[2017-09-29] MEDS: CARVEDILOL 6.25 MG TABLET PO SCH ×2 (09:23→21:18)
[2017-09-29] MEDS: CLOPIDOGREL 75 MG TABLET PO SCH (09:23)
[2017-09-29] MEDS: ATORVASTATIN 80 MG TABLET PO SCH (09:23)
[2017-09-29] MEDS: ASPIRIN CHEW 81 MG TABLET PO SCH (09:23)
[2017-09-29] MEDS: TORSEMIDE 20 MG TABLET PO SCH (09:24)
[2017-09-29] MEDS: amLODIPine 2.5 MG TABLET PO SCH (09:24)
[2017-09-29] MEDS ORDERED: MAGNESIUM SULF RIDER 2 GM in PREMIX 1 EACH IV PRN (10:59)
[2017-09-29] MEDS ORDERED: DIAZEPAM 5 MG TABLET PO ONE (10:59)
[2017-09-29] MEDS ORDERED: POTASSIUM CHLORIDE RIDER 10 MEQ in PREMIX 1 EACH IV PRN (10:59)
[2017-09-29] MEDS ORDERED: HEPARIN/NACL 0.9% 2 UNITS/ML 2,000 ML IV ONE (11:53)
[2017-09-29] MEDS ORDERED: HEPARIN/NACL 0.9% 2 UNITS/ML 0 ML IV ONE (11:53)
[2017-09-29] MEDS ORDERED: LIDOCAINE 1% 20 ML VIAL ONE ×2 (11:53→12:14)
[2017-09-29] MEDS ORDERED: NITROGLYCERIN DRIP 50 MG/250 ML BOTTLE IV ONE (12:14)
[2017-09-29] MEDS ORDERED: VERAPAMIL 5 MG/2 ML VIAL ONE (12:14)
[2017-09-29] MEDS ORDERED: HYDROmorphone 2 MG/1 ML VIAL ONE (12:18)
[2017-09-29] MEDS ORDERED: ENOXAPARIN 30 MG/0.3 ML SYRINGE ONE (12:26)
[2017-09-29] MEDS ORDERED: ADENOSINE 90 MG/30 ML VIAL IV ONE (12:46)
[2017-09-29] MEDS ORDERED: SODIUM CHLORIDE 0.9% 1,000 ML IV SCH (13:30)
[2017-09-30 04:55] LABS: Basophils % 0.2 % (0.0-0.8); Eosinophils # 0.1 10*3/uL (0.0-0.87); Eosinophils % 0.8 % (0.00-10.9); Hemoglobin 10.4 GM/DL (12.0-16.0); Immature Granulocytes % 0.4 %; Immature Granulocytes Absolute 0.04 #; Lymphocytes # 1.8 10*3/uL (1.4-4.0); Lymphocytes % 15.9 % (21.3-54.2); Mean Corpuscular HGB Conc 32.5 GM/DL (32-36); Mean Corpuscular Hemoglobin 28 PG (27-34); Mean Corpuscular Volume 86.3 FL (87-102); Mean Platelet Volume 10.5 FL (9.6-12.0); Monocytes # 1.1 10*3/uL (0.11-0.8); Neutrophils # 8.2 10*3/uL (1.4-7.4); Neutrophils % 72.7 % (38.7-73.9); Platelet Count 216 T/CUMM (130-400); Red Blood Count 3.71 MC/CUMM (3.8-5.5); Red Cell Distribution Width 15.8 % (9.3-17.3); White Blood Count 11.2 T/CUMM (4-12)
[2017-09-30 05:20] LABS: Calcium 8.3 MG/DL (8.5-10.1); Osmolality,Calculated 297.5 MOS/KG (273-304); Potassium 4.6 MMOL/L (3.5-5.1)
[2017-09-30] MEDS: INSULIN LISPRO 100 UNIT/ML SUBCUT SCH (10:04)
[2017-09-30] MEDS: ATORVASTATIN 80 MG TABLET PO SCH (10:05)
[2017-09-30] MEDS: CLOPIDOGREL 75 MG TABLET PO SCH (10:05)
[2017-09-30] MEDS: amLODIPine 2.5 MG TABLET PO SCH (10:05)
[2017-09-30] MEDS: PANTOPRAZOLE 40 MG TABLET PO SCH (10:05)
[2017-09-30] MEDS: TORSEMIDE 20 MG TABLET PO SCH (10:05)
[2017-09-30] MEDS: CARVEDILOL 6.25 MG TABLET PO SCH (10:05)
[2017-09-30] MEDS: ASPIRIN CHEW 81 MG TABLET PO SCH (10:05)
[2017-09-30 13:35] VITALS: BP 145/66
== END 2017-09-30 15:31 | disposition home or self-care (01) | DRG 286 ==
LOC: N.ED 12:52 → SUATTDRO 17:46 → N.EDINP 17:46 → N.TELEN 20:36
PROVIDERS: ADMIT Internal Medicine; ATTEND Hospitalist

== ENCOUNTER 2017-10-19 15:49 | Inpatient (IN) ==
[2017-10-19 17:28] LABS: Basophils % 0.2 % (0.0-0.8); Eosinophils # 0.1 10*3/uL (0.0-0.87); Eosinophils % 0.5 % (0.00-10.9); Hematocrit 39.8 VOL% (35.7-47.0); Hemoglobin 12.6 GM/DL (12.0-16.0); Immature Granulocytes % 0.3 %; Immature Granulocytes Absolute 0.04 #; Lymphocytes # 1.3 10*3/uL (1.4-4.0); Lymphocytes % 10.4 % (21.3-54.2); Mean Corpuscular HGB Conc 31.7 GM/DL (32-36); Mean Corpuscular Hemoglobin 27 PG (27-34); Mean Corpuscular Volume 85.4 FL (87-102); Mean Platelet Volume 10.7 FL (9.6-12.0); Monocytes # 0.9 10*3/uL (0.11-0.8); Monocytes % 7.3 % (1.7-12.7); Neutrophils # 10.5 10*3/uL (1.4-7.4); Neutrophils % 81.3 % (38.7-73.9); Platelet Count 293 T/CUMM (130-400); Red Blood Count 4.66 MC/CUMM (3.8-5.5); Red Cell Distribution Width 16.1 % (9.3-17.3); White Blood Count 12.9 T/CUMM (4-12)
[2017-10-19 17:40] LABS: INR 1.1; PT Patient Result 11.3 SECS; Partial Thromboplastin Time 24.3 SECS (0-40)
[2017-10-19 17:57] LABS: Bilirubin,Total 0.7 MG/DL (0.2-1.0); Calcium 9.1 MG/DL (8.5-10.1); Osmolality,Calculated 295.5 MOS/KG (273-304); Potassium 3.3 MMOL/L (3.5-5.1); Total Protein 9.6 G/DL (6.4-8.3)
[2017-10-19 18:02] LABS: Troponin I Only 0.069 NG/ML (0.00-0.045)
[2017-10-19 20:16] LABS: VBG Base Excess 10.7 MEQ/L (0-4); VBG HCO3 34.1 MEQ/L (24-28); VBG Oxygen Saturation 82.1 %; VBG PCO2 59.6 MMHG (41-51); VBG PH 7.411; VBG PO2 49.6 MMHG (17-40)
[2017-10-19] MEDS ORDERED: MAGNESIUM SULF RIDER 4 GM in PREMIX 1 EACH IV PRN (20:26)
[2017-10-19] MEDS ORDERED: GLUCAGON 1 MG VIAL IM PRN (20:26)
[2017-10-19] MEDS ORDERED: ONDANSETRON 4 MG/2 ML VIAL IV PRN (20:26)
[2017-10-19] MEDS ORDERED: POTASSIUM CHLORIDE 20 MEQ TABLET PO PRN (20:26)
[2017-10-19] MEDS ORDERED: POTASSIUM CHLORIDE 20 MEQ TABLET PO STA (20:26)
[2017-10-19] MEDS ORDERED: MAGNESIUM SULF RIDER 2 GM in PREMIX 1 EACH IV PRN (20:26)
[2017-10-19] MEDS ORDERED: ASPIRIN 325 MG TABLET PO STA (20:59)
[2017-10-19] MEDS ORDERED: POTASSIUM CHLORIDE 20 MEQ TABLET PO ONE (21:14)
[2017-10-19] MEDS ORDERED: CARVEDILOL 3.125 MG TABLET ONE (21:15)
[2017-10-19] MEDS ORDERED: ASPIRIN 325 MG TABLET ONE (21:15)
[2017-10-19] MEDS ORDERED: NITROGLYCERIN DRIP 50 MG/250 ML BOTTLE IV ONE (21:15)
[2017-10-19] MEDS ORDERED: ENOXAPARIN 30 MG/0.3 ML SYRINGE ONE (21:15)
[2017-10-19] MEDS: hydrALAZINE 25 MG TABLET PO SCH (21:30)
[2017-10-19] MEDS: CARVEDILOL 3.125 MG TABLET PO SCH (21:30)
[2017-10-19] MEDS: ENOXAPARIN 30 MG/0.3 ML SYRINGE SUBCUT SCH (21:45)
[2017-10-19] MEDS: NITROGLYCERIN DRIP 50 MG/250 ML BOTTLE IV SCH (21:47)
[2017-10-19] MEDS: INSULIN LISPRO 100 UNIT/ML SUBCUT SCH (23:21)
[2017-10-19] MEDS: OFLOXACIN 0.3% OPH SOLN 10 ML BOTTLE LEFT EYE SCH (23:25)
[2017-10-20 06:03] LABS: Basophils % 0.1 % (0.0-0.8); Hemoglobin 11.2 GM/DL (12.0-16.0); Immature Granulocytes % 0.6 %; Immature Granulocytes Absolute 0.09 #; Lymphocytes # 1.7 10*3/uL (1.4-4.0); Mean Corpuscular Hemoglobin 28 PG (27-34); Mean Corpuscular Volume 86.4 FL (87-102); Mean Platelet Volume 11.3 FL (9.6-12.0); Monocytes # 1.7 10*3/uL (0.11-0.8); Monocytes % 10.8 % (1.7-12.7); Neutrophils % 77.5 % (38.7-73.9); Platelet Count 204 T/CUMM (130-400); Red Blood Count 4.05 MC/CUMM (3.8-5.5); Red Cell Distribution Width 16.4 % (9.3-17.3); White Blood Count 15.5 T/CUMM (4-12)
[2017-10-20 06:15] LABS: Calcium 8.4 MG/DL (8.5-10.1); Magnesium 1.9 MG/DL (1.8-2.4); Osmolality,Calculated 297.4 MOS/KG (273-304); Potassium 3.7 MMOL/L (3.5-5.1); Risk Ratio 2.04
[2017-10-20] MEDS: INSULIN LISPRO 100 UNIT/ML SUBCUT SCH ×4 (10:32→21:33)
[2017-10-20] MEDS: ASPIRIN 325 MG TABLET PO SCH (10:44)
[2017-10-20] MEDS: ATORVASTATIN 80 MG TABLET PO SCH (10:44)
[2017-10-20] MEDS: FUROSEMIDE 40 MG/4 ML VIAL IV SCH ×2 (10:44→16:46)
[2017-10-20] MEDS: SPIRONOLACTONE 25 MG TABLET PO SCH (10:45)
[2017-10-20] MEDS: hydrALAZINE 25 MG TABLET PO SCH ×3 (10:45→21:32)
[2017-10-20] MEDS: CLOPIDOGREL 75 MG TABLET PO SCH (10:45)
[2017-10-20] MEDS: PANTOPRAZOLE 40 MG TABLET PO SCH (10:45)
[2017-10-20] MEDS: CARVEDILOL 3.125 MG TABLET PO SCH ×2 (10:45→21:32)
[2017-10-20] MEDS: INSULIN GLARGINE 100 UNIT/ML SUBCUT SCH (10:46)
[2017-10-20] MEDS: OFLOXACIN 0.3% OPH SOLN 10 ML BOTTLE LEFT EYE SCH ×4 (10:46→21:36)
[2017-10-20 11:30] LABS: CKMB % 6.4 %
[2017-10-20 11:35] LABS: Troponin I Only 3.92 NG/ML (0.00-0.045)
[2017-10-20] MEDS: cefTRIAXone 1,000 MG in SYRINGE 1 EACH IV SCH (18:54)
[2017-10-20 19:05] LABS: Apearance,Urine CLOUDY (Clear); Bacteria,Urine Occasional /HPF (Few); Bilirubin,Urine Negative (Negative); Blood, Urine Negative (Negative); Glucose,Urine (UA) Negative (Negative); Hyaline Casts,Urine 25 /LPF (0-3); Ketones,Urine Negative (Negative); Mucus,Urine Occasional /LPF (Occasional); Nitrite,Urine Negative (Negative); Protein,Urine Negative; RBC,Urine <1 /HPF (0-4); Squamous Epithelial Cell,Urine Occasional /HPF (0-10); Urine Color Yellow (Yellow); Urine Specific Gravity 1.009 (1.001-1.035); Urine Urobilinogen < 2.0 EU/DL (0.2-1.0); WBC,Urine 1 /HPF (0-6)
[2017-10-20] MEDS: ENOXAPARIN 30 MG/0.3 ML SYRINGE SUBCUT SCH (21:33)
[2017-10-21 03:02] LABS: Basophils % 0.1 % (0.0-0.8); Eosinophils % 0.1 % (0.00-10.9); Hematocrit 30.8 VOL% (35.7-47.0); Immature Granulocytes % 0.6 %; Immature Granulocytes Absolute 0.09 #; Lymphocytes # 1.5 10*3/uL (1.4-4.0); Lymphocytes % 10.3 % (21.3-54.2); Mean Corpuscular HGB Conc 32.5 GM/DL (32-36); Mean Corpuscular Hemoglobin 28 PG (27-34); Mean Corpuscular Volume 84.6 FL (87-102); Mean Platelet Volume 10.7 FL (9.6-12.0); Monocytes # 1.4 10*3/uL (0.11-0.8); Monocytes % 9.5 % (1.7-12.7); Neutrophils # 11.6 10*3/uL (1.4-7.4); Neutrophils % 79.4 % (38.7-73.9); Platelet Count 252 T/CUMM (130-400); Red Blood Count 3.64 MC/CUMM (3.8-5.5); Red Cell Distribution Width 15.9 % (9.3-17.3); White Blood Count 14.6 T/CUMM (4-12)
[2017-10-21 03:31] LABS: Calcium 8.4 MG/DL (8.5-10.1); Osmolality,Calculated 306.4 MOS/KG (273-304); Potassium 3.7 MMOL/L (3.5-5.1)
[2017-10-21] MEDS: NITROGLYCERIN DRIP 50 MG/250 ML BOTTLE IV SCH ×2 (09:10→21:18)
[2017-10-21] MEDS: INSULIN GLARGINE 100 UNIT/ML SUBCUT SCH (09:11)
[2017-10-21] MEDS: FUROSEMIDE 40 MG/4 ML VIAL IV SCH ×2 (09:12→16:17)
[2017-10-21] MEDS: INSULIN LISPRO 100 UNIT/ML SUBCUT SCH ×4 (09:12→21:20)
[2017-10-21] MEDS: ASPIRIN 325 MG TABLET PO SCH (09:13)
[2017-10-21] MEDS: CLOPIDOGREL 75 MG TABLET PO SCH (09:13)
[2017-10-21] MEDS: hydrALAZINE 25 MG TABLET PO SCH ×3 (09:13→21:20)
[2017-10-21] MEDS: CARVEDILOL 3.125 MG TABLET PO SCH ×2 (09:13→21:19)
[2017-10-21] MEDS: ATORVASTATIN 80 MG TABLET PO SCH (09:13)
[2017-10-21] MEDS: SPIRONOLACTONE 25 MG TABLET PO SCH (09:13)
[2017-10-21] MEDS: PANTOPRAZOLE 40 MG TABLET PO SCH (09:13)
[2017-10-21] MEDS: OFLOXACIN 0.3% OPH SOLN 10 ML BOTTLE LEFT EYE SCH ×4 (09:13→21:24)
[2017-10-21] MEDS ORDERED: ALBUTEROL/IPRATROPIUM 3 ML NEB RESP TX PRN (15:39)
[2017-10-21] MEDS: ACETAMINOPHEN 325 MG TABLET PO PRN ×2 (16:23→21:19)
[2017-10-21] MEDS: cefTRIAXone 1,000 MG in SYRINGE 1 EACH IV SCH (18:00)
[2017-10-21] MEDS: ALBUTEROL/IPRATROPIUM 3 ML NEB RESP TX SCH (19:51)
[2017-10-21] MEDS: ENOXAPARIN 30 MG/0.3 ML SYRINGE SUBCUT SCH (21:20)
[2017-10-22] MEDS: ALBUTEROL/IPRATROPIUM 3 ML NEB RESP TX SCH ×7 (00:15→23:15)
[2017-10-22 05:54] LABS: Basophils % 0.1 % (0.0-0.8); Eosinophils # 0.1 10*3/uL (0.0-0.87); Eosinophils % 0.4 % (0.00-10.9); Hematocrit 29.8 VOL% (35.7-47.0); Hemoglobin 9.5 GM/DL (12.0-16.0); Immature Granulocytes % 0.8 %; Lymphocytes # 1.3 10*3/uL (1.4-4.0); Lymphocytes % 9.9 % (21.3-54.2); Mean Corpuscular HGB Conc 31.9 GM/DL (32-36); Mean Corpuscular Hemoglobin 27 PG (27-34); Mean Corpuscular Volume 85.1 FL (87-102); Mean Platelet Volume 10.9 FL (9.6-12.0); Monocytes # 1.3 10*3/uL (0.11-0.8); Monocytes % 9.9 % (1.7-12.7); Neutrophils # 10.5 10*3/uL (1.4-7.4); Neutrophils % 78.9 % (38.7-73.9); Platelet Count 236 T/CUMM (130-400); Red Cell Distribution Width 16.2 % (9.3-17.3); White Blood Count 13.3 T/CUMM (4-12)
[2017-10-22 06:18] LABS: Calcium 8.1 MG/DL (8.5-10.1); Osmolality,Calculated 296.8 MOS/KG (273-304); Potassium 3.7 MMOL/L (3.5-5.1)
[2017-10-22] MEDS: INSULIN LISPRO 100 UNIT/ML SUBCUT SCH ×4 (07:35→21:08)
[2017-10-22] MEDS: ASPIRIN 325 MG TABLET PO SCH (08:59)
[2017-10-22] MEDS: hydrALAZINE 25 MG TABLET PO SCH ×3 (08:59→21:08)
[2017-10-22] MEDS: CARVEDILOL 3.125 MG TABLET PO SCH ×2 (08:59→21:08)
[2017-10-22] MEDS: ATORVASTATIN 80 MG TABLET PO SCH (08:59)
[2017-10-22] MEDS: PANTOPRAZOLE 40 MG TABLET PO SCH (08:59)
[2017-10-22] MEDS: CLOPIDOGREL 75 MG TABLET PO SCH (08:59)
[2017-10-22] MEDS: FUROSEMIDE 40 MG/4 ML VIAL IV SCH ×2 (09:00→15:53)
[2017-10-22] MEDS: SPIRONOLACTONE 25 MG TABLET PO SCH (09:00)
[2017-10-22] MEDS: INSULIN GLARGINE 100 UNIT/ML SUBCUT SCH (09:00)
[2017-10-22] MEDS: OFLOXACIN 0.3% OPH SOLN 10 ML BOTTLE LEFT EYE SCH ×4 (09:02→21:08)
[2017-10-22] MEDS: cefTRIAXone 1,000 MG in SYRINGE 1 EACH IV SCH (18:25)
[2017-10-22] MEDS: ENOXAPARIN 30 MG/0.3 ML SYRINGE SUBCUT SCH (21:08)
[2017-10-23] MEDS: NITROGLYCERIN DRIP 50 MG/250 ML BOTTLE IV SCH (01:46)
[2017-10-23] MEDS: ALBUTEROL/IPRATROPIUM 3 ML NEB RESP TX SCH ×5 (03:13→21:17)
[2017-10-23 05:17] LABS: Basophils % 0.1 % (0.0-0.8); Eosinophils # 0.1 10*3/uL (0.0-0.87); Hematocrit 28.7 VOL% (35.7-47.0); Hemoglobin 9.2 GM/DL (12.0-16.0); Immature Granulocytes % 0.3 %; Immature Granulocytes Absolute 0.03 #; Lymphocytes # 1.5 10*3/uL (1.4-4.0); Lymphocytes % 15.8 % (21.3-54.2); Mean Corpuscular HGB Conc 32.1 GM/DL (32-36); Mean Corpuscular Hemoglobin 27 PG (27-34); Mean Corpuscular Volume 84.2 FL (87-102); Mean Platelet Volume 10.8 FL (9.6-12.0); Monocytes % 10.6 % (1.7-12.7); Neutrophils # 6.7 10*3/uL (1.4-7.4); Neutrophils % 72.2 % (38.7-73.9); Platelet Count 241 T/CUMM (130-400); Red Blood Count 3.41 MC/CUMM (3.8-5.5); Red Cell Distribution Width 15.9 % (9.3-17.3); White Blood Count 9.2 T/CUMM (4-12)
[2017-10-23 05:48] LABS: Calcium 8.1 MG/DL (8.5-10.1); Magnesium 2.4 MG/DL (1.8-2.4); Osmolality,Calculated 297.1 MOS/KG (273-304); Potassium 3.9 MMOL/L (3.5-5.1)
[2017-10-23] MEDS: INSULIN LISPRO 100 UNIT/ML SUBCUT SCH ×4 (08:48→20:36)
[2017-10-23] MEDS: INSULIN GLARGINE 100 UNIT/ML SUBCUT SCH (09:25)
[2017-10-23] MEDS: FUROSEMIDE 40 MG/4 ML VIAL IV SCH ×2 (09:26→17:19)
[2017-10-23] MEDS: ATORVASTATIN 80 MG TABLET PO SCH (09:27)
[2017-10-23] MEDS: SPIRONOLACTONE 25 MG TABLET PO SCH (09:27)
[2017-10-23] MEDS: hydrALAZINE 25 MG TABLET PO SCH ×3 (09:27→20:36)
[2017-10-23] MEDS: PANTOPRAZOLE 40 MG TABLET PO SCH (09:27)
[2017-10-23] MEDS: CARVEDILOL 3.125 MG TABLET PO SCH ×2 (09:27→20:36)
[2017-10-23] MEDS: ASPIRIN 325 MG TABLET PO SCH (09:27)
[2017-10-23] MEDS: OFLOXACIN 0.3% OPH SOLN 10 ML BOTTLE LEFT EYE SCH ×4 (09:28→21:53)
[2017-10-23] MEDS: CLOPIDOGREL 75 MG TABLET PO SCH (09:29)
[2017-10-23] MEDS ORDERED: ISOSORBIDE DINITRATE 10 MG TABLET PO SCH (15:00)
[2017-10-23] MEDS: metOLazone 2.5 MG TABLET PO SCH (17:20)
[2017-10-23] MEDS: cefTRIAXone 1,000 MG in SYRINGE 1 EACH IV SCH (17:20)
[2017-10-23] MEDS: ENOXAPARIN 30 MG/0.3 ML SYRINGE SUBCUT SCH (20:37)
[2017-10-23] MEDS: ZALEPLON 5 MG CAPSULE PO PRN (20:40)
[2017-10-24] MEDS: ALBUTEROL/IPRATROPIUM 3 ML NEB RESP TX SCH ×6 (01:42→20:49)
[2017-10-24 04:51] LABS: Calcium 7.9 MG/DL (8.5-10.1); Magnesium 2.5 MG/DL (1.8-2.4); Osmolality,Calculated 290.5 MOS/KG (273-304); Potassium 4.1 MMOL/L (3.5-5.1)
[2017-10-24] MEDS: FUROSEMIDE 40 MG/4 ML VIAL IV SCH ×2 (09:51→16:53)
[2017-10-24] MEDS: INSULIN LISPRO 100 UNIT/ML SUBCUT SCH ×4 (09:51→21:20)
[2017-10-24] MEDS: ATORVASTATIN 80 MG TABLET PO SCH (09:52)
[2017-10-24] MEDS: CLOPIDOGREL 75 MG TABLET PO SCH (09:52)
[2017-10-24] MEDS: hydrALAZINE 25 MG TABLET PO SCH ×3 (09:52→21:33)
[2017-10-24] MEDS: ISOSORBIDE MONONITRATE 30 MG TABLET PO SCH (09:52)
[2017-10-24] MEDS: ASPIRIN 325 MG TABLET PO SCH (09:52)
[2017-10-24] MEDS: INSULIN GLARGINE 100 UNIT/ML SUBCUT SCH (09:52)
[2017-10-24] MEDS: OFLOXACIN 0.3% OPH SOLN 10 ML BOTTLE LEFT EYE SCH ×4 (09:53→21:34)
[2017-10-24] MEDS: CARVEDILOL 3.125 MG TABLET PO SCH ×2 (09:53→21:33)
[2017-10-24] MEDS: metOLazone 2.5 MG TABLET PO SCH (09:53)
[2017-10-24] MEDS: SPIRONOLACTONE 25 MG TABLET PO SCH (09:53)
[2017-10-24] MEDS: PANTOPRAZOLE 40 MG TABLET PO SCH (09:53)
[2017-10-24] MEDS: cefTRIAXone 1,000 MG in SYRINGE 1 EACH IV SCH (18:06)
[2017-10-24] MEDS: ZALEPLON 5 MG CAPSULE PO PRN (21:33)
[2017-10-24] MEDS: ENOXAPARIN 30 MG/0.3 ML SYRINGE SUBCUT SCH (21:33)
[2017-10-25] MEDS: ALBUTEROL/IPRATROPIUM 3 ML NEB RESP TX SCH ×7 (01:01→23:18)
[2017-10-25 05:19] LABS: Basophils % 0.1 % (0.0-0.8); Eosinophils # 0.1 10*3/uL (0.0-0.87); Hematocrit 29.4 VOL% (35.7-47.0); Hemoglobin 9.9 GM/DL (12.0-16.0); Immature Granulocytes % 0.5 %; Immature Granulocytes Absolute 0.05 #; Lymphocytes # 1.3 10*3/uL (1.4-4.0); Lymphocytes % 13.7 % (21.3-54.2); Mean Corpuscular HGB Conc 33.7 GM/DL (32-36); Mean Corpuscular Hemoglobin 27 PG (27-34); Mean Corpuscular Volume 80.8 FL (87-102); Mean Platelet Volume 10.9 FL (9.6-12.0); Monocytes # 0.9 10*3/uL (0.11-0.8); Monocytes % 9.3 % (1.7-12.7); NRBC # 0.05 10*3/uL; Neutrophils # 7.3 10*3/uL (1.4-7.4); Neutrophils % 75.4 % (38.7-73.9); Platelet Count 273 T/CUMM (130-400); Red Blood Count 3.64 MC/CUMM (3.8-5.5); Red Cell Distribution Width 15.6 % (9.3-17.3); White Blood Count 9.7 T/CUMM (4-12)
[2017-10-25 05:24] LABS: Calcium 7.1 MG/DL (8.5-10.1); Magnesium 2.5 MG/DL (1.8-2.4); Osmolality,Calculated 289.2 MOS/KG (273-304)
[2017-10-25 08:26] LABS: % Iron Saturation 11.8 % (18-50); Ferritin 545.9 ng/ml (8-252)
[2017-10-25] MEDS: INSULIN LISPRO 100 UNIT/ML SUBCUT SCH ×4 (09:29→21:38)
[2017-10-25] MEDS: INSULIN GLARGINE 100 UNIT/ML SUBCUT SCH (09:30)
[2017-10-25] MEDS: metOLazone 2.5 MG TABLET PO SCH (09:30)
[2017-10-25] MEDS: FUROSEMIDE 40 MG/4 ML VIAL IV SCH ×2 (09:30→17:28)
[2017-10-25] MEDS: ATORVASTATIN 80 MG TABLET PO SCH (09:30)
[2017-10-25] MEDS: CLOPIDOGREL 75 MG TABLET PO SCH (09:30)
[2017-10-25] MEDS: ASPIRIN 325 MG TABLET PO SCH (09:30)
[2017-10-25] MEDS: ISOSORBIDE MONONITRATE 30 MG TABLET PO SCH (09:31)
[2017-10-25] MEDS: PANTOPRAZOLE 40 MG TABLET PO SCH (09:31)
[2017-10-25] MEDS: hydrALAZINE 25 MG TABLET PO SCH ×3 (09:31→21:38)
[2017-10-25] MEDS: CARVEDILOL 3.125 MG TABLET PO SCH ×2 (09:31→21:38)
[2017-10-25] MEDS: SPIRONOLACTONE 25 MG TABLET PO SCH (09:31)
[2017-10-25] MEDS: OFLOXACIN 0.3% OPH SOLN 10 ML BOTTLE LEFT EYE SCH ×4 (09:39→21:39)
[2017-10-25 16:41] LABS: Total Protein,Pleural Fluid 3.7 G/DL
[2017-10-25 17:23] LABS: Lymphocytes,Pleural Fluid 60 %; Monocytes,Pleural Fluid 3 %; Neutrophils,Pleural Fluid 37 %
[2017-10-25] MEDS: cefTRIAXone 1,000 MG in SYRINGE 1 EACH IV SCH (17:30)
[2017-10-25 17:53] LABS: RBC,Pleural Fluid > 100000 T/CUMM
[2017-10-25] MEDS: ENOXAPARIN 30 MG/0.3 ML SYRINGE SUBCUT SCH (21:38)
[2017-10-26] MEDS: ALBUTEROL/IPRATROPIUM 3 ML NEB RESP TX SCH ×5 (04:12→21:02)
[2017-10-26 05:17] LABS: Basophils % 0.1 % (0.0-0.8); Eosinophils # 0.1 10*3/uL (0.0-0.87); Eosinophils % 1.4 % (0.00-10.9); Hematocrit 27.1 VOL% (35.7-47.0); Hemoglobin 9.2 GM/DL (12.0-16.0); Immature Granulocytes % 0.5 %; Immature Granulocytes Absolute 0.05 #; Lymphocytes # 1.6 10*3/uL (1.4-4.0); Lymphocytes % 16.5 % (21.3-54.2); Mean Corpuscular HGB Conc 33.9 GM/DL (32-36); Mean Corpuscular Hemoglobin 27 PG (27-34); Mean Corpuscular Volume 79.7 FL (87-102); Mean Platelet Volume 10.4 FL (9.6-12.0); Monocytes # 0.8 10*3/uL (0.11-0.8); Monocytes % 8.1 % (1.7-12.7); Neutrophils % 73.4 % (38.7-73.9); Platelet Count 306 T/CUMM (130-400); Red Cell Distribution Width 15.7 % (9.3-17.3); White Blood Count 9.5 T/CUMM (4-12)
[2017-10-26 05:31] LABS: Calcium 8.1 MG/DL (8.5-10.1); Magnesium 2.6 MG/DL (1.8-2.4); Osmolality,Calculated 289.8 MOS/KG (273-304); Potassium 4.1 MMOL/L (3.5-5.1)
[2017-10-26] MEDS: INSULIN LISPRO 100 UNIT/ML SUBCUT SCH ×4 (09:06→22:46)
[2017-10-26] MEDS: SPIRONOLACTONE 25 MG TABLET PO SCH (09:08)
[2017-10-26] MEDS: hydrALAZINE 25 MG TABLET PO SCH ×3 (09:08→22:46)
[2017-10-26] MEDS: ASPIRIN 325 MG TABLET PO SCH (09:08)
[2017-10-26] MEDS: ISOSORBIDE MONONITRATE 30 MG TABLET PO SCH (09:08)
[2017-10-26] MEDS: ATORVASTATIN 80 MG TABLET PO SCH (09:09)
[2017-10-26] MEDS: CLOPIDOGREL 75 MG TABLET PO SCH (09:09)
[2017-10-26] MEDS: metOLazone 2.5 MG TABLET PO SCH (09:09)
[2017-10-26] MEDS: FUROSEMIDE 40 MG/4 ML VIAL IV SCH ×2 (09:09→15:05)
[2017-10-26] MEDS: CARVEDILOL 3.125 MG TABLET PO SCH ×2 (09:09→22:46)
[2017-10-26] MEDS: PANTOPRAZOLE 40 MG TABLET PO SCH (09:09)
[2017-10-26] MEDS: INSULIN GLARGINE 100 UNIT/ML SUBCUT SCH (09:10)
[2017-10-26] MEDS: OFLOXACIN 0.3% OPH SOLN 10 ML BOTTLE LEFT EYE SCH ×4 (09:11→22:47)
[2017-10-26] MEDS: cefTRIAXone 1,000 MG in SYRINGE 1 EACH IV SCH (17:28)
[2017-10-26] MEDS: ENOXAPARIN 30 MG/0.3 ML SYRINGE SUBCUT SCH (22:46)
[2017-10-26] MEDS: ZALEPLON 5 MG CAPSULE PO PRN (22:49)
[2017-10-27] MEDS: ALBUTEROL/IPRATROPIUM 3 ML NEB RESP TX SCH ×7 (00:59→23:42)
[2017-10-27 04:54] LABS: Basophils % 0.1 % (0.0-0.8); Eosinophils # 0.2 10*3/uL (0.0-0.87); Eosinophils % 1.7 % (0.00-10.9); Hemoglobin 9.5 GM/DL (12.0-16.0); Immature Granulocytes % 0.5 %; Immature Granulocytes Absolute 0.05 #; Lymphocytes # 1.3 10*3/uL (1.4-4.0); Lymphocytes % 12.1 % (21.3-54.2); Mean Corpuscular HGB Conc 32.8 GM/DL (32-36); Mean Corpuscular Hemoglobin 27 PG (27-34); Mean Corpuscular Volume 82.2 FL (87-102); Mean Platelet Volume 10.2 FL (9.6-12.0); Monocytes % 8.7 % (1.7-12.7); Neutrophils # 8.4 10*3/uL (1.4-7.4); Neutrophils % 76.9 % (38.7-73.9); Platelet Count 322 T/CUMM (130-400); Red Blood Count 3.53 MC/CUMM (3.8-5.5); Red Cell Distribution Width 15.6 % (9.3-17.3); White Blood Count 10.9 T/CUMM (4-12)
[2017-10-27 05:15] LABS: Calcium 8.2 MG/DL (8.5-10.1); Magnesium 2.7 MG/DL (1.8-2.4); Osmolality,Calculated 290.9 MOS/KG (273-304); Potassium 4.4 MMOL/L (3.5-5.1)
[2017-10-27] MEDS: INSULIN GLARGINE 100 UNIT/ML SUBCUT SCH (09:37)
[2017-10-27] MEDS: INSULIN LISPRO 100 UNIT/ML SUBCUT SCH ×4 (09:37→22:31)
[2017-10-27] MEDS: ISOSORBIDE MONONITRATE 30 MG TABLET PO SCH (09:38)
[2017-10-27] MEDS: FUROSEMIDE 40 MG/4 ML VIAL IV SCH ×2 (09:38→16:09)
[2017-10-27] MEDS: hydrALAZINE 25 MG TABLET PO SCH ×3 (09:39→21:07)
[2017-10-27] MEDS: metOLazone 2.5 MG TABLET PO SCH (09:39)
[2017-10-27] MEDS: ATORVASTATIN 80 MG TABLET PO SCH (09:39)
[2017-10-27] MEDS: CLOPIDOGREL 75 MG TABLET PO SCH (09:39)
[2017-10-27] MEDS: ASPIRIN 325 MG TABLET PO SCH (09:39)
[2017-10-27] MEDS: CARVEDILOL 3.125 MG TABLET PO SCH ×2 (09:40→21:07)
[2017-10-27] MEDS: PANTOPRAZOLE 40 MG TABLET PO SCH (09:40)
[2017-10-27] MEDS: OFLOXACIN 0.3% OPH SOLN 10 ML BOTTLE LEFT EYE SCH ×4 (09:40→21:07)
[2017-10-27] MEDS: SPIRONOLACTONE 25 MG TABLET PO SCH (09:40)
[2017-10-27] MEDS: cefTRIAXone 1,000 MG in SYRINGE 1 EACH IV SCH (17:23)
[2017-10-27] MEDS: ENOXAPARIN 30 MG/0.3 ML SYRINGE SUBCUT SCH (21:07)
[2017-10-28] MEDS: ALBUTEROL/IPRATROPIUM 3 ML NEB RESP TX SCH ×6 (03:10→23:12)
[2017-10-28 07:44] LABS: Basophils % 0.2 % (0.0-0.8); Eosinophils # 0.2 10*3/uL (0.0-0.87); Eosinophils % 2.3 % (0.00-10.9); Hematocrit 30.1 VOL% (35.7-47.0); Hemoglobin 9.6 GM/DL (12.0-16.0); Immature Granulocytes % 0.9 %; Immature Granulocytes Absolute 0.09 #; Lymphocytes # 1.4 10*3/uL (1.4-4.0); Lymphocytes % 14.5 % (21.3-54.2); Mean Corpuscular HGB Conc 31.9 GM/DL (32-36); Mean Corpuscular Hemoglobin 27 PG (27-34); Mean Corpuscular Volume 84.8 FL (87-102); Mean Platelet Volume 10.1 FL (9.6-12.0); Monocytes # 0.9 10*3/uL (0.11-0.8); Monocytes % 9.2 % (1.7-12.7); Neutrophils # 7.1 10*3/uL (1.4-7.4); Neutrophils % 72.9 % (38.7-73.9); Platelet Count 280 T/CUMM (130-400); Red Blood Count 3.55 MC/CUMM (3.8-5.5); Red Cell Distribution Width 15.6 % (9.3-17.3); White Blood Count 9.8 T/CUMM (4-12)
[2017-10-28 08:06] LABS: Calcium 7.9 MG/DL (8.5-10.1); Magnesium 2.6 MG/DL (1.8-2.4); Osmolality,Calculated 288.2 MOS/KG (273-304); Potassium 4.9 MMOL/L (3.5-5.1)
[2017-10-28] MEDS: INSULIN LISPRO 100 UNIT/ML SUBCUT SCH ×4 (10:12→22:05)
[2017-10-28] MEDS: INSULIN GLARGINE 100 UNIT/ML SUBCUT SCH (10:12)
[2017-10-28] MEDS: FUROSEMIDE 40 MG/4 ML VIAL IV SCH ×2 (10:12→17:02)
[2017-10-28] MEDS: CARVEDILOL 3.125 MG TABLET PO SCH ×2 (10:13→22:04)
[2017-10-28] MEDS: ASPIRIN 325 MG TABLET PO SCH (10:13)
[2017-10-28] MEDS: ISOSORBIDE MONONITRATE 30 MG TABLET PO SCH (10:13)
[2017-10-28] MEDS: ATORVASTATIN 80 MG TABLET PO SCH (10:13)
[2017-10-28] MEDS: metOLazone 2.5 MG TABLET PO SCH (10:13)
[2017-10-28] MEDS: hydrALAZINE 25 MG TABLET PO SCH ×3 (10:13→22:05)
[2017-10-28] MEDS: PANTOPRAZOLE 40 MG TABLET PO SCH (10:13)
[2017-10-28] MEDS: CLOPIDOGREL 75 MG TABLET PO SCH (10:14)
[2017-10-28] MEDS: SPIRONOLACTONE 25 MG TABLET PO SCH (10:14)
[2017-10-28] MEDS: OFLOXACIN 0.3% OPH SOLN 10 ML BOTTLE LEFT EYE SCH ×4 (10:14→22:05)
[2017-10-28] MEDS: cefTRIAXone 1,000 MG in SYRINGE 1 EACH IV SCH (17:12)
[2017-10-28] MEDS: ENOXAPARIN 30 MG/0.3 ML SYRINGE SUBCUT SCH (22:05)
[2017-10-29] MEDS: ALBUTEROL/IPRATROPIUM 3 ML NEB RESP TX SCH ×5 (02:19→20:30)
[2017-10-29 06:02] LABS: Basophils % 0.1 % (0.0-0.8); Eosinophils # 0.2 10*3/uL (0.0-0.87); Eosinophils % 2.1 % (0.00-10.9); Hematocrit 28.8 VOL% (35.7-47.0); Hemoglobin 9.5 GM/DL (12.0-16.0); Immature Granulocytes % 0.5 %; Immature Granulocytes Absolute 0.05 #; Lymphocytes # 1.4 10*3/uL (1.4-4.0); Lymphocytes % 14.8 % (21.3-54.2); Mean Corpuscular Hemoglobin 27 PG (27-34); Mean Corpuscular Volume 81.6 FL (87-102); Mean Platelet Volume 10.3 FL (9.6-12.0); Monocytes # 0.9 10*3/uL (0.11-0.8); Neutrophils # 6.8 10*3/uL (1.4-7.4); Neutrophils % 72.5 % (38.7-73.9); Platelet Count 343 T/CUMM (130-400); Red Blood Count 3.53 MC/CUMM (3.8-5.5); Red Cell Distribution Width 15.4 % (9.3-17.3); White Blood Count 9.4 T/CUMM (4-12)
[2017-10-29 06:30] LABS: Calcium 7.9 MG/DL (8.5-10.1); Magnesium 2.6 MG/DL (1.8-2.4); Osmolality,Calculated 287.4 MOS/KG (273-304); Potassium 4.7 MMOL/L (3.5-5.1)
[2017-10-29] MEDS: FUROSEMIDE 40 MG/4 ML VIAL IV SCH ×2 (09:28→17:41)
[2017-10-29] MEDS: INSULIN LISPRO 100 UNIT/ML SUBCUT SCH ×4 (09:29→21:12)
[2017-10-29] MEDS: INSULIN GLARGINE 100 UNIT/ML SUBCUT SCH (09:29)
[2017-10-29] MEDS: CLOPIDOGREL 75 MG TABLET PO SCH (09:29)
[2017-10-29] MEDS: ATORVASTATIN 80 MG TABLET PO SCH (09:30)
[2017-10-29] MEDS: SPIRONOLACTONE 25 MG TABLET PO SCH (09:30)
[2017-10-29] MEDS: PANTOPRAZOLE 40 MG TABLET PO SCH (09:30)
[2017-10-29] MEDS: hydrALAZINE 25 MG TABLET PO SCH ×3 (09:30→21:09)
[2017-10-29] MEDS: CARVEDILOL 3.125 MG TABLET PO SCH ×2 (09:30→21:09)
[2017-10-29] MEDS: ASPIRIN 325 MG TABLET PO SCH (09:30)
[2017-10-29] MEDS: metOLazone 5 MG TABLET PO SCH (09:30)
[2017-10-29] MEDS: ISOSORBIDE MONONITRATE 30 MG TABLET PO SCH (09:30)
[2017-10-29] MEDS: OFLOXACIN 0.3% OPH SOLN 10 ML BOTTLE LEFT EYE SCH ×4 (09:31→21:33)
[2017-10-29] MEDS: cefTRIAXone 1,000 MG in SYRINGE 1 EACH IV SCH (17:41)
[2017-10-29] MEDS: ENOXAPARIN 30 MG/0.3 ML SYRINGE SUBCUT SCH (21:09)
[2017-10-30] MEDS: ALBUTEROL/IPRATROPIUM 3 ML NEB RESP TX SCH ×7 (00:41→23:00)
[2017-10-30 05:38] LABS: Basophils % 0.2 % (0.0-0.8); Eosinophils # 0.2 10*3/uL (0.0-0.87); Eosinophils % 1.8 % (0.00-10.9); Hematocrit 27.8 VOL% (35.7-47.0); Hemoglobin 9.2 GM/DL (12.0-16.0); Immature Granulocytes % 0.6 %; Immature Granulocytes Absolute 0.06 #; Lymphocytes # 1.5 10*3/uL (1.4-4.0); Mean Corpuscular HGB Conc 33.1 GM/DL (32-36); Mean Corpuscular Hemoglobin 27 PG (27-34); Mean Corpuscular Volume 81.8 FL (87-102); Monocytes % 9.6 % (1.7-12.7); Neutrophils % 73.8 % (38.7-73.9); Platelet Count 344 T/CUMM (130-400); Red Cell Distribution Width 15.6 % (9.3-17.3); White Blood Count 10.8 T/CUMM (4-12)
[2017-10-30 06:11] LABS: Calcium 7.9 MG/DL (8.5-10.1); Magnesium 2.6 MG/DL (1.8-2.4); Osmolality,Calculated 282.1 MOS/KG (273-304); Potassium 4.7 MMOL/L (3.5-5.1)
[2017-10-30] MEDS: hydrALAZINE 25 MG TABLET PO SCH ×3 (10:33→21:36)
[2017-10-30] MEDS: ATORVASTATIN 80 MG TABLET PO SCH (10:33)
[2017-10-30] MEDS: ASPIRIN 325 MG TABLET PO SCH (10:33)
[2017-10-30] MEDS: CLOPIDOGREL 75 MG TABLET PO SCH (10:34)
[2017-10-30] MEDS: CARVEDILOL 3.125 MG TABLET PO SCH ×2 (10:34→21:36)
[2017-10-30] MEDS: metOLazone 5 MG TABLET PO SCH (10:34)
[2017-10-30] MEDS: ISOSORBIDE MONONITRATE 30 MG TABLET PO SCH (10:34)
[2017-10-30] MEDS: SPIRONOLACTONE 25 MG TABLET PO SCH (10:34)
[2017-10-30] MEDS: PANTOPRAZOLE 40 MG TABLET PO SCH (10:34)
[2017-10-30] MEDS: BUMETANIDE 1 MG/4 ML VIAL IV SCH ×2 (10:35→21:35)
[2017-10-30] MEDS: INSULIN LISPRO 100 UNIT/ML SUBCUT SCH ×4 (10:35→21:35)
[2017-10-30] MEDS: INSULIN GLARGINE 100 UNIT/ML SUBCUT SCH ×2 (10:35→12:38)
[2017-10-30] MEDS: OFLOXACIN 0.3% OPH SOLN 10 ML BOTTLE LEFT EYE SCH ×4 (10:36→21:36)
[2017-10-30] MEDS: FUROSEMIDE 40 MG/4 ML VIAL IV SCH (11:46)
[2017-10-30] MEDS: cefTRIAXone 1,000 MG in SYRINGE 1 EACH IV SCH (18:36)
[2017-10-30] MEDS: ENOXAPARIN 30 MG/0.3 ML SYRINGE SUBCUT SCH (21:35)
[2017-10-30] MEDS: ACETAMINOPHEN 325 MG TABLET PO PRN (21:39)
[2017-10-31] MEDS: ALBUTEROL/IPRATROPIUM 3 ML NEB RESP TX SCH ×6 (03:00→23:57)
[2017-10-31 05:04] LABS: Basophils % 0.3 % (0.0-0.8); Eosinophils # 0.2 10*3/uL (0.0-0.87); Eosinophils % 1.9 % (0.00-10.9); Hematocrit 28.1 VOL% (35.7-47.0); Hemoglobin 9.5 GM/DL (12.0-16.0); Immature Granulocytes % 0.6 %; Immature Granulocytes Absolute 0.07 #; Lymphocytes # 1.6 10*3/uL (1.4-4.0); Lymphocytes % 14.2 % (21.3-54.2); Mean Corpuscular HGB Conc 33.8 GM/DL (32-36); Mean Corpuscular Hemoglobin 27 PG (27-34); Mean Corpuscular Volume 80.1 FL (87-102); Mean Platelet Volume 10.1 FL (9.6-12.0); Monocytes % 8.9 % (1.7-12.7); Neutrophils # 8.4 10*3/uL (1.4-7.4); Neutrophils % 74.1 % (38.7-73.9); Platelet Count 347 T/CUMM (130-400); Red Blood Count 3.51 MC/CUMM (3.8-5.5); Red Cell Distribution Width 15.8 % (9.3-17.3); White Blood Count 11.3 T/CUMM (4-12)
[2017-10-31 05:39] LABS: Calcium 8.1 MG/DL (8.5-10.1); Magnesium 2.5 MG/DL (1.8-2.4); Osmolality,Calculated 283.2 MOS/KG (273-304); Potassium 5.1 MMOL/L (3.5-5.1)
[2017-10-31] MEDS: INSULIN GLARGINE 100 UNIT/ML SUBCUT SCH (10:34)
[2017-10-31] MEDS: ATORVASTATIN 80 MG TABLET PO SCH (10:35)
[2017-10-31] MEDS: CLOPIDOGREL 75 MG TABLET PO SCH (10:35)
[2017-10-31] MEDS: SPIRONOLACTONE 25 MG TABLET PO SCH (10:35)
[2017-10-31] MEDS: BUMETANIDE 1 MG/4 ML VIAL IV SCH ×2 (10:35→20:54)
[2017-10-31] MEDS: PANTOPRAZOLE 40 MG TABLET PO SCH (10:36)
[2017-10-31] MEDS: OFLOXACIN 0.3% OPH SOLN 10 ML BOTTLE LEFT EYE SCH ×4 (10:36→20:54)
[2017-10-31] MEDS: ISOSORBIDE MONONITRATE 30 MG TABLET PO SCH (10:36)
[2017-10-31] MEDS: hydrALAZINE 25 MG TABLET PO SCH ×3 (10:36→20:54)
[2017-10-31] MEDS: metOLazone 5 MG TABLET PO SCH (10:36)
[2017-10-31] MEDS: CARVEDILOL 3.125 MG TABLET PO SCH ×2 (10:36→20:54)
[2017-10-31] MEDS: INSULIN LISPRO 100 UNIT/ML SUBCUT SCH ×4 (10:37→20:54)
[2017-10-31] MEDS: ASPIRIN 325 MG TABLET PO SCH (10:38)
[2017-10-31] MEDS ORDERED: TOLVAPTAN 15 MG TABLET PO SCH (12:00)
[2017-10-31] MEDS: cefTRIAXone 1,000 MG in SYRINGE 1 EACH IV SCH (18:16)
[2017-10-31] MEDS: ENOXAPARIN 30 MG/0.3 ML SYRINGE SUBCUT SCH (20:55)
[2017-11-01] MEDS: ALBUTEROL/IPRATROPIUM 3 ML NEB RESP TX SCH ×6 (00:47→19:34)
[2017-11-01 06:13] LABS: Calcium 8.2 MG/DL (8.5-10.1); Magnesium 2.5 MG/DL (1.8-2.4); Osmolality,Calculated 280.2 MOS/KG (273-304)
[2017-11-01] MEDS: INSULIN LISPRO 100 UNIT/ML SUBCUT SCH ×4 (08:09→22:10)
[2017-11-01] MEDS: BUMETANIDE 1 MG/4 ML VIAL IV SCH (09:30)
[2017-11-01] MEDS: INSULIN GLARGINE 100 UNIT/ML SUBCUT SCH (09:30)
[2017-11-01] MEDS: ATORVASTATIN 80 MG TABLET PO SCH (09:31)
[2017-11-01] MEDS: CLOPIDOGREL 75 MG TABLET PO SCH (09:31)
[2017-11-01] MEDS: hydrALAZINE 25 MG TABLET PO SCH ×3 (09:31→22:10)
[2017-11-01] MEDS: CARVEDILOL 3.125 MG TABLET PO SCH ×2 (09:31→22:10)
[2017-11-01] MEDS: ISOSORBIDE MONONITRATE 30 MG TABLET PO SCH (09:31)
[2017-11-01] MEDS: SPIRONOLACTONE 25 MG TABLET PO SCH (09:32)
[2017-11-01] MEDS: OFLOXACIN 0.3% OPH SOLN 10 ML BOTTLE LEFT EYE SCH ×4 (09:32→22:10)
[2017-11-01] MEDS: metOLazone 5 MG TABLET PO SCH (09:32)
[2017-11-01] MEDS: ASPIRIN 325 MG TABLET PO SCH (09:32)
[2017-11-01] MEDS: PANTOPRAZOLE 40 MG TABLET PO SCH (09:32)
[2017-11-01] MEDS: BUMETANIDE 1 MG TABLET PO SCH (17:01)
[2017-11-01] MEDS: cefTRIAXone 1,000 MG in SYRINGE 1 EACH IV SCH (17:01)
[2017-11-01] MEDS: ENOXAPARIN 30 MG/0.3 ML SYRINGE SUBCUT SCH (22:10)
[2017-11-02] MEDS: ALBUTEROL/IPRATROPIUM 3 ML NEB RESP TX SCH ×5 (03:18→19:44)
[2017-11-02 05:40] LABS: Calcium 8.2 MG/DL (8.5-10.1); Magnesium 2.5 MG/DL (1.8-2.4); Osmolality,Calculated 283.5 MOS/KG (273-304); Potassium 5.1 MMOL/L (3.5-5.1)
[2017-11-02] MEDS ORDERED: DIAZEPAM 10 MG/2 ML SYRINGE IV ONE (10:18)
[2017-11-02] MEDS: INSULIN LISPRO 100 UNIT/ML SUBCUT SCH ×4 (10:27→21:15)
[2017-11-02] MEDS: TOLVAPTAN 15 MG TABLET PO SCH (10:27)
[2017-11-02] MEDS: INSULIN GLARGINE 100 UNIT/ML SUBCUT SCH (10:27)
[2017-11-02] MEDS: metOLazone 5 MG TABLET PO SCH (10:28)
[2017-11-02] MEDS: CLOPIDOGREL 75 MG TABLET PO SCH (10:28)
[2017-11-02] MEDS: hydrALAZINE 25 MG TABLET PO SCH ×3 (10:29→21:15)
[2017-11-02] MEDS: BUMETANIDE 1 MG TABLET PO SCH ×2 (10:29→17:01)
[2017-11-02] MEDS: CARVEDILOL 3.125 MG TABLET PO SCH ×2 (10:29→21:15)
[2017-11-02] MEDS: ATORVASTATIN 80 MG TABLET PO SCH (10:29)
[2017-11-02] MEDS: ISOSORBIDE MONONITRATE 30 MG TABLET PO SCH (10:29)
[2017-11-02] MEDS: PANTOPRAZOLE 40 MG TABLET PO SCH (10:30)
[2017-11-02] MEDS: SPIRONOLACTONE 25 MG TABLET PO SCH (10:30)
[2017-11-02] MEDS: OFLOXACIN 0.3% OPH SOLN 10 ML BOTTLE LEFT EYE SCH ×4 (10:30→21:17)
[2017-11-02] MEDS: ASPIRIN CHEW 81 MG TABLET PO SCH (10:30)
[2017-11-02] MEDS: cefTRIAXone 1,000 MG in SYRINGE 1 EACH IV SCH (17:00)
[2017-11-02] MEDS: ENOXAPARIN 30 MG/0.3 ML SYRINGE SUBCUT SCH (21:15)
[2017-11-02] MEDS: traZODone 50 MG TABLET PO SCH (21:15)
[2017-11-03] MEDS: ALBUTEROL/IPRATROPIUM 3 ML NEB RESP TX SCH ×6 (00:24→20:01)
[2017-11-03 06:16] LABS: Calcium 8.3 MG/DL (8.5-10.1); Magnesium 2.5 MG/DL (1.8-2.4); Osmolality,Calculated 279.2 MOS/KG (273-304); Potassium 4.6 MMOL/L (3.5-5.1)
[2017-11-03] MEDS: INSULIN LISPRO 100 UNIT/ML SUBCUT SCH ×3 (13:34→20:51)
[2017-11-03] MEDS: INSULIN GLARGINE 100 UNIT/ML SUBCUT SCH (13:36)
[2017-11-03] MEDS: OFLOXACIN 0.3% OPH SOLN 10 ML BOTTLE LEFT EYE SCH ×4 (15:23→20:52)
[2017-11-03] MEDS: hydrALAZINE 25 MG TABLET PO SCH ×2 (15:53→15:56)
[2017-11-03] MEDS: ASPIRIN CHEW 81 MG TABLET PO SCH (15:53)
[2017-11-03] MEDS: PANTOPRAZOLE 40 MG TABLET PO SCH (15:56)
[2017-11-03] MEDS: ATORVASTATIN 80 MG TABLET PO SCH (15:56)
[2017-11-03] MEDS: BUMETANIDE 1 MG TABLET PO SCH ×2 (15:56→16:55)
[2017-11-03] MEDS: CARVEDILOL 3.125 MG TABLET PO SCH ×2 (15:56→20:47)
[2017-11-03] MEDS: SPIRONOLACTONE 25 MG TABLET PO SCH (15:57)
[2017-11-03] MEDS: ISOSORBIDE MONONITRATE 30 MG TABLET PO SCH (15:57)
[2017-11-03] MEDS: metOLazone 5 MG TABLET PO SCH (15:57)
[2017-11-03] MEDS: TOLVAPTAN 15 MG TABLET PO SCH (15:57)
[2017-11-03 16:42] LABS: Basophils % 0.2 % (0.0-0.8); Eosinophils # 0.1 10*3/uL (0.0-0.87); Eosinophils % 0.8 % (0.00-10.9); Hematocrit 27.3 VOL% (35.7-47.0); Hemoglobin 8.9 GM/DL (12.0-16.0); Immature Granulocytes % 0.6 %; Immature Granulocytes Absolute 0.08 #; Lymphocytes # 1.7 10*3/uL (1.4-4.0); Lymphocytes % 13.4 % (21.3-54.2); Mean Corpuscular HGB Conc 32.6 GM/DL (32-36); Mean Corpuscular Hemoglobin 27 PG (27-34); Mean Corpuscular Volume 83.2 FL (87-102); Mean Platelet Volume 9.2 FL (9.6-12.0); Monocytes # 1.3 10*3/uL (0.11-0.8); Monocytes % 10.1 % (1.7-12.7); Neutrophils # 9.4 10*3/uL (1.4-7.4); Neutrophils % 74.9 % (38.7-73.9); Platelet Count 304 T/CUMM (130-400); Red Blood Count 3.28 MC/CUMM (3.8-5.5); Red Cell Distribution Width 15.9 % (9.3-17.3); White Blood Count 12.6 T/CUMM (4-12)
[2017-11-03] MEDS: cefTRIAXone 1,000 MG in SYRINGE 1 EACH IV SCH (19:11)
[2017-11-03] MEDS: traZODone 50 MG TABLET PO SCH (20:47)
[2017-11-03] MEDS: ENOXAPARIN 30 MG/0.3 ML SYRINGE SUBCUT SCH (20:52)
[2017-11-04] MEDS: hydrALAZINE 25 MG TABLET PO SCH ×4 (00:13→20:50)
[2017-11-04] MEDS: ALBUTEROL/IPRATROPIUM 3 ML NEB RESP TX SCH ×7 (00:43→23:40)
[2017-11-04 06:40] LABS: Basophils % 0.1 % (0.0-0.8); Eosinophils % 0.2 % (0.00-10.9); Hematocrit 25.1 VOL% (35.7-47.0); Hemoglobin 8.2 GM/DL (12.0-16.0); Immature Granulocytes % 0.8 %; Immature Granulocytes Absolute 0.13 #; Lymphocytes # 1.5 10*3/uL (1.4-4.0); Lymphocytes % 9.8 % (21.3-54.2); Mean Corpuscular HGB Conc 32.7 GM/DL (32-36); Mean Corpuscular Hemoglobin 27 PG (27-34); Mean Corpuscular Volume 82.3 FL (87-102); Mean Platelet Volume 9.8 FL (9.6-12.0); Monocytes % 6.2 % (1.7-12.7); Neutrophils # 13.1 10*3/uL (1.4-7.4); Neutrophils % 82.9 % (38.7-73.9); Platelet Count 315 T/CUMM (130-400); Red Blood Count 3.05 MC/CUMM (3.8-5.5); White Blood Count 15.8 T/CUMM (4-12)
[2017-11-04 06:57] LABS: Calcium 8.4 MG/DL (8.5-10.1); Magnesium 2.6 MG/DL (1.8-2.4); Osmolality,Calculated 290.7 MOS/KG (273-304); Potassium 4.4 MMOL/L (3.5-5.1)
[2017-11-04] MEDS: INSULIN LISPRO 100 UNIT/ML SUBCUT SCH ×4 (08:36→20:50)
[2017-11-04] MEDS: ISOSORBIDE MONONITRATE 30 MG TABLET PO SCH (08:38)
[2017-11-04] MEDS: BUMETANIDE 1 MG TABLET PO SCH ×2 (08:38→15:59)
[2017-11-04] MEDS: CARVEDILOL 3.125 MG TABLET PO SCH ×2 (08:38→20:50)
[2017-11-04] MEDS: ATORVASTATIN 80 MG TABLET PO SCH (08:38)
[2017-11-04] MEDS: ASPIRIN CHEW 81 MG TABLET PO SCH (08:38)
[2017-11-04] MEDS: metOLazone 5 MG TABLET PO SCH (08:38)
[2017-11-04] MEDS: INSULIN GLARGINE 100 UNIT/ML SUBCUT SCH (08:39)
[2017-11-04] MEDS: SPIRONOLACTONE 25 MG TABLET PO SCH (08:39)
[2017-11-04] MEDS: TOLVAPTAN 15 MG TABLET PO SCH (08:39)
[2017-11-04] MEDS: PANTOPRAZOLE 40 MG TABLET PO SCH (08:39)
[2017-11-04] MEDS: OFLOXACIN 0.3% OPH SOLN 10 ML BOTTLE LEFT EYE SCH ×4 (08:52→22:28)
[2017-11-04] MEDS: traZODone 50 MG TABLET PO SCH (20:50)
[2017-11-05] MEDS: ALBUTEROL/IPRATROPIUM 3 ML NEB RESP TX SCH ×5 (03:56→19:15)
[2017-11-05 04:47] LABS: Calcium 8.1 MG/DL (8.5-10.1); Magnesium 2.3 MG/DL (1.8-2.4); Osmolality,Calculated 287.9 MOS/KG (273-304); Potassium 4.6 MMOL/L (3.5-5.1)
[2017-11-05 05:44] LABS: Basophils % 0.1 % (0.0-0.8); Eosinophils # 0.2 10*3/uL (0.0-0.87); Eosinophils % 1.2 % (0.00-10.9); Hematocrit 25.7 VOL% (35.7-47.0); Hemoglobin 8.6 GM/DL (12.0-16.0); Immature Granulocytes % 0.5 %; Immature Granulocytes Absolute 0.07 #; Lymphocytes # 1.2 10*3/uL (1.4-4.0); Lymphocytes % 8.2 % (21.3-54.2); Mean Corpuscular HGB Conc 33.5 GM/DL (32-36); Mean Corpuscular Hemoglobin 27 PG (27-34); Mean Corpuscular Volume 81.3 FL (87-102); Mean Platelet Volume 9.4 FL (9.6-12.0); Monocytes % 6.7 % (1.7-12.7); Neutrophils # 12.6 10*3/uL (1.4-7.4); Neutrophils % 83.3 % (38.7-73.9); Platelet Count 311 T/CUMM (130-400); Red Blood Count 3.16 MC/CUMM (3.8-5.5); Red Cell Distribution Width 15.9 % (9.3-17.3); White Blood Count 15.1 T/CUMM (4-12)
[2017-11-05] MEDS: INSULIN LISPRO 100 UNIT/ML SUBCUT SCH ×4 (07:23→21:41)
[2017-11-05] MEDS: metOLazone 5 MG TABLET PO SCH (09:38)
[2017-11-05] MEDS: ISOSORBIDE MONONITRATE 30 MG TABLET PO SCH (09:38)
[2017-11-05] MEDS: hydrALAZINE 25 MG TABLET PO SCH ×3 (09:39→21:36)
[2017-11-05] MEDS: BUMETANIDE 1 MG TABLET PO SCH ×3 (09:39→16:29)
[2017-11-05] MEDS: PANTOPRAZOLE 40 MG TABLET PO SCH (09:39)
[2017-11-05] MEDS: INSULIN GLARGINE 100 UNIT/ML SUBCUT SCH (09:39)
[2017-11-05] MEDS: ATORVASTATIN 80 MG TABLET PO SCH (09:39)
[2017-11-05] MEDS: CARVEDILOL 3.125 MG TABLET PO SCH ×2 (09:40→21:36)
[2017-11-05] MEDS: SPIRONOLACTONE 25 MG TABLET PO SCH (09:40)
[2017-11-05] MEDS: OFLOXACIN 0.3% OPH SOLN 10 ML BOTTLE LEFT EYE SCH ×4 (09:40→21:40)
[2017-11-05] MEDS: TOLVAPTAN 15 MG TABLET PO SCH (09:43)
[2017-11-05] MEDS: traZODone 50 MG TABLET PO SCH (21:36)
[2017-11-06] MEDS: ACETAMINOPHEN 325 MG TABLET PO PRN (00:03)
[2017-11-06] MEDS: ALBUTEROL/IPRATROPIUM 3 ML NEB RESP TX SCH ×6 (00:08→19:39)
[2017-11-06 06:01] LABS: Basophils % 0.1 % (0.0-0.8); Eosinophils % 0.2 % (0.00-10.9); Hematocrit 25.7 VOL% (35.7-47.0); Hemoglobin 8.5 GM/DL (12.0-16.0); Immature Granulocytes % 0.7 %; Immature Granulocytes Absolute 0.09 #; Lymphocytes # 0.6 10*3/uL (1.4-4.0); Lymphocytes % 4.6 % (21.3-54.2); Mean Corpuscular HGB Conc 33.1 GM/DL (32-36); Mean Corpuscular Hemoglobin 28 PG (27-34); Mean Corpuscular Volume 83.2 FL (87-102); Mean Platelet Volume 9.6 FL (9.6-12.0); Monocytes # 0.5 10*3/uL (0.11-0.8); Monocytes % 3.8 % (1.7-12.7); Neutrophils # 11.8 10*3/uL (1.4-7.4); Neutrophils % 90.6 % (38.7-73.9); Platelet Count 285 T/CUMM (130-400); Red Blood Count 3.09 MC/CUMM (3.8-5.5); Red Cell Distribution Width 16.2 % (9.3-17.3); White Blood Count 13.1 T/CUMM (4-12)
[2017-11-06 06:26] LABS: Calcium 8.3 MG/DL (8.5-10.1); Magnesium 2.4 MG/DL (1.8-2.4); Osmolality,Calculated 293.2 MOS/KG (273-304); Potassium 3.6 MMOL/L (3.5-5.1)
[2017-11-06 07:09] LABS: Band Neutrophils 1 % (0-10); Eosinophils 1 % (0-10); Hypochromasia 1+; Lymphocytes 5 % (20-55); Segmented Neutrophils 91 % (50-85); Total Cells Counted 100
[2017-11-06 07:10] LABS: Microcytosis 1+; Ovalocytes Slight; Platelet Estimate Normal; Target Cells Slight
[2017-11-06] MEDS: DEXTROSE 50% 25 GM/50 ML VIAL IV PRN (08:23)
[2017-11-06] MEDS: OFLOXACIN 0.3% OPH SOLN 10 ML BOTTLE LEFT EYE SCH ×3 (08:29→16:55)
[2017-11-06] MEDS: INSULIN LISPRO 100 UNIT/ML SUBCUT SCH ×4 (08:30→22:48)
[2017-11-06] MEDS: INSULIN GLARGINE 100 UNIT/ML SUBCUT SCH (08:49)
[2017-11-06] MEDS: BUMETANIDE 1 MG TABLET PO SCH ×2 (08:49→16:25)
[2017-11-06] MEDS: SPIRONOLACTONE 25 MG TABLET PO SCH (08:49)
[2017-11-06] MEDS: ATORVASTATIN 80 MG TABLET PO SCH (08:50)
[2017-11-06] MEDS: CARVEDILOL 3.125 MG TABLET PO SCH ×3 (10:05→21:47)
[2017-11-06] MEDS: ISOSORBIDE MONONITRATE 30 MG TABLET PO SCH ×2 (10:06→12:31)
[2017-11-06] MEDS: PANTOPRAZOLE 40 MG TABLET PO SCH ×2 (10:06→12:31)
[2017-11-06] MEDS: TOLVAPTAN 15 MG TABLET PO SCH (10:07)
[2017-11-06] MEDS: metOLazone 5 MG TABLET PO SCH (10:07)
[2017-11-06] MEDS: hydrALAZINE 25 MG TABLET PO SCH ×4 (10:07→21:47)
[2017-11-06] MEDS: VANCOMYCIN 50 MG/ML 60 ML/BOTTLE PO SCH (19:02)
[2017-11-06] MEDS: traZODone 50 MG TABLET PO SCH (21:47)
[2017-11-07] MEDS: ALBUTEROL/IPRATROPIUM 3 ML NEB RESP TX SCH ×7 (00:30→23:07)
[2017-11-07] MEDS: VANCOMYCIN 50 MG/ML 60 ML/BOTTLE PO SCH ×4 (00:55→17:30)
[2017-11-07] MEDS: OFLOXACIN 0.3% OPH SOLN 10 ML BOTTLE LEFT EYE SCH ×5 (00:59→21:34)
[2017-11-07] MEDS: CARVEDILOL 3.125 MG TABLET PO SCH ×2 (09:43→21:31)
[2017-11-07] MEDS: BUMETANIDE 1 MG TABLET PO SCH ×2 (09:43→15:20)
[2017-11-07] MEDS: SPIRONOLACTONE 25 MG TABLET PO SCH (09:43)
[2017-11-07] MEDS: INSULIN LISPRO 100 UNIT/ML SUBCUT SCH ×4 (09:43→22:57)
[2017-11-07] MEDS: hydrALAZINE 25 MG TABLET PO SCH ×3 (09:43→21:30)
[2017-11-07] MEDS: INSULIN GLARGINE 100 UNIT/ML SUBCUT SCH (09:44)
[2017-11-07] MEDS: PANTOPRAZOLE 40 MG TABLET PO SCH (09:45)
[2017-11-07] MEDS: ATORVASTATIN 80 MG TABLET PO SCH (09:45)
[2017-11-07] MEDS: metOLazone 5 MG TABLET PO SCH (09:45)
[2017-11-07] MEDS: ISOSORBIDE MONONITRATE 30 MG TABLET PO SCH (09:45)
[2017-11-07] MEDS ORDERED: SKIN HEALING OINT (AQUAPHOR) 50 GM TUBE TOP PRN (14:09)
[2017-11-07] MEDS: BACITRACIN OINT 0.9 GM PACK TOP SCH (16:28)
[2017-11-07 16:43] LABS: % Iron Saturation 13.2 % (18-50); Ferritin 318.5 ng/ml (8-252)
[2017-11-07 18:08] LABS: Apearance,Urine CLOUDY (Clear); Bacteria,Urine Occasional /HPF (Few); Bilirubin,Urine Negative (Negative); Blood, Urine Negative (Negative); Glucose,Urine (UA) Negative (Negative); Hyaline Casts,Urine 29 /LPF (0-3); Ketones,Urine Negative (Negative); Mucus,Urine Occasional /LPF (Occasional); Nitrite,Urine Negative (Negative); Protein,Urine Negative; Squamous Epithelial Cell,Urine Occasional /HPF (0-10); Urine Color Yellow (Yellow); Urine Specific Gravity 1.009 (1.001-1.035); Urine Urobilinogen < 2.0 EU/DL (0.2-1.0); WBC,Urine 2 /HPF (0-6)
[2017-11-07] MEDS: traZODone 50 MG TABLET PO SCH (21:31)
[2017-11-07] MEDS: IRON (CARBONYL) 45 MG TABLET PO SCH (21:49)
[2017-11-08] MEDS: VANCOMYCIN 50 MG/ML 60 ML/BOTTLE PO SCH ×5 (00:18→23:00)
[2017-11-08] MEDS: ALBUTEROL/IPRATROPIUM 3 ML NEB RESP TX SCH ×6 (02:54→23:39)
[2017-11-08 06:36] LABS: Calcium 7.9 MG/DL (8.5-10.1); Magnesium 2.3 MG/DL (1.8-2.4); Osmolality,Calculated 298.2 MOS/KG (273-304); Potassium 3.9 MMOL/L (3.5-5.1)
[2017-11-08 07:41] LABS: Basophils % 0.1 % (0.0-0.8); Eosinophils # 0.3 10*3/uL (0.0-0.87); Hematocrit 25.6 VOL% (35.7-47.0); Hemoglobin 8.6 GM/DL (12.0-16.0); Immature Granulocytes % 0.3 %; Immature Granulocytes Absolute 0.03 #; Lymphocytes # 1.4 10*3/uL (1.4-4.0); Lymphocytes % 15.5 % (21.3-54.2); Mean Corpuscular HGB Conc 33.6 GM/DL (32-36); Mean Corpuscular Hemoglobin 28 PG (27-34); Mean Corpuscular Volume 82.1 FL (87-102); Mean Platelet Volume 9.7 FL (9.6-12.0); Monocytes # 0.6 10*3/uL (0.11-0.8); Monocytes % 7.3 % (1.7-12.7); Neutrophils # 6.4 10*3/uL (1.4-7.4); Neutrophils % 73.8 % (38.7-73.9); Platelet Count 278 T/CUMM (130-400); Red Blood Count 3.12 MC/CUMM (3.8-5.5); White Blood Count 8.7 T/CUMM (4-12)
[2017-11-08 07:45] LABS: Folate > 24.0 NG/ML (5.4-24.0); Vitamin B12 > 2000 PG/ML (211-911)
[2017-11-08] MEDS: INSULIN LISPRO 100 UNIT/ML SUBCUT SCH ×4 (09:00→21:54)
[2017-11-08] MEDS: CARVEDILOL 3.125 MG TABLET PO SCH ×2 (09:28→21:52)
[2017-11-08] MEDS: ISOSORBIDE MONONITRATE 30 MG TABLET PO SCH (09:28)
[2017-11-08] MEDS: ATORVASTATIN 80 MG TABLET PO SCH (09:28)
[2017-11-08] MEDS: BUMETANIDE 1 MG TABLET PO SCH ×2 (09:28→15:18)
[2017-11-08] MEDS: hydrALAZINE 25 MG TABLET PO SCH ×3 (09:29→21:54)
[2017-11-08] MEDS: SPIRONOLACTONE 25 MG TABLET PO SCH (09:29)
[2017-11-08] MEDS: PANTOPRAZOLE 40 MG TABLET PO SCH (09:29)
[2017-11-08] MEDS: metOLazone 5 MG TABLET PO SCH (09:29)
[2017-11-08] MEDS: INSULIN GLARGINE 100 UNIT/ML SUBCUT SCH (09:38)
[2017-11-08] MEDS: ASPIRIN EC 81 MG TABLET PO SCH (09:38)
[2017-11-08] MEDS: BACITRACIN OINT 0.9 GM PACK TOP SCH (09:38)
[2017-11-08] MEDS: IRON (CARBONYL) 45 MG TABLET PO SCH ×2 (09:39→21:53)
[2017-11-08] MEDS: OFLOXACIN 0.3% OPH SOLN 10 ML BOTTLE LEFT EYE SCH ×4 (09:40→21:55)
[2017-11-08] MEDS: traZODone 50 MG TABLET PO SCH (21:53)
[2017-11-09] MEDS: ALBUTEROL/IPRATROPIUM 3 ML NEB RESP TX SCH ×5 (02:45→21:19)
[2017-11-09 06:35] LABS: Eosinophils # 0.3 10*3/uL (0.0-0.87); Eosinophils % 2.8 % (0.00-10.9); Hematocrit 25.5 VOL% (35.7-47.0); Hemoglobin 8.5 GM/DL (12.0-16.0); Immature Granulocytes % 0.4 %; Immature Granulocytes Absolute 0.04 #; Lymphocytes # 1.8 10*3/uL (1.4-4.0); Lymphocytes % 18.9 % (21.3-54.2); Mean Corpuscular HGB Conc 33.3 GM/DL (32-36); Mean Corpuscular Hemoglobin 27 PG (27-34); Mean Corpuscular Volume 81.2 FL (87-102); Mean Platelet Volume 9.7 FL (9.6-12.0); Monocytes # 0.6 10*3/uL (0.11-0.8); Monocytes % 6.1 % (1.7-12.7); Neutrophils # 6.8 10*3/uL (1.4-7.4); Neutrophils % 71.8 % (38.7-73.9); Platelet Count 287 T/CUMM (130-400); Red Blood Count 3.14 MC/CUMM (3.8-5.5); Red Cell Distribution Width 15.8 % (9.3-17.3); White Blood Count 9.4 T/CUMM (4-12)
[2017-11-09 07:04] LABS: Calcium 7.9 MG/DL (8.5-10.1); Magnesium 2.2 MG/DL (1.8-2.4); Osmolality,Calculated 290.5 MOS/KG (273-304); Potassium 4.1 MMOL/L (3.5-5.1)
[2017-11-09] MEDS: VANCOMYCIN 50 MG/ML 60 ML/BOTTLE PO SCH ×3 (07:14→17:36)
[2017-11-09 07:24] LABS: Elliptocytes Few; Giant Platelets Few; Hypochromasia 1+; Lymphocytes 11 % (20-55); Microcytosis Slight; Platelet Estimate Adequate; Segmented Neutrophils 84 % (50-85); Total Cells Counted 100
[2017-11-09] MEDS: INSULIN LISPRO 100 UNIT/ML SUBCUT SCH ×4 (07:41→21:22)
[2017-11-09] MEDS: IRON (CARBONYL) 45 MG TABLET PO SCH ×2 (09:46→21:59)
[2017-11-09] MEDS: PANTOPRAZOLE 40 MG TABLET PO SCH (09:47)
[2017-11-09] MEDS: ASPIRIN EC 81 MG TABLET PO SCH (09:47)
[2017-11-09] MEDS: CARVEDILOL 3.125 MG TABLET PO SCH ×2 (09:47→21:59)
[2017-11-09] MEDS: ATORVASTATIN 80 MG TABLET PO SCH (09:47)
[2017-11-09] MEDS: ISOSORBIDE MONONITRATE 30 MG TABLET PO SCH (09:47)
[2017-11-09] MEDS: BUMETANIDE 1 MG TABLET PO SCH ×2 (09:48→16:14)
[2017-11-09] MEDS: metOLazone 5 MG TABLET PO SCH (09:49)
[2017-11-09] MEDS: SPIRONOLACTONE 25 MG TABLET PO SCH (09:49)
[2017-11-09] MEDS: BACITRACIN OINT 0.9 GM PACK TOP SCH (09:50)
[2017-11-09] MEDS: OFLOXACIN 0.3% OPH SOLN 10 ML BOTTLE LEFT EYE SCH ×4 (09:50→22:00)
[2017-11-09] MEDS: hydrALAZINE 25 MG TABLET PO SCH ×3 (09:50→22:02)
[2017-11-09] MEDS: INSULIN GLARGINE 100 UNIT/ML SUBCUT SCH (09:50)
[2017-11-09] MEDS: traZODone 50 MG TABLET PO SCH (21:59)
[2017-11-10] MEDS: ALBUTEROL/IPRATROPIUM 3 ML NEB RESP TX SCH ×6 (00:40→20:22)
[2017-11-10] MEDS: VANCOMYCIN 50 MG/ML 60 ML/BOTTLE PO SCH ×5 (00:48→23:45)
[2017-11-10 05:16] LABS: Basophils % 0.1 % (0.0-0.8); Eosinophils # 0.3 10*3/uL (0.0-0.87); Eosinophils % 2.6 % (0.00-10.9); Hematocrit 25.5 VOL% (35.7-47.0); Hemoglobin 8.6 GM/DL (12.0-16.0); Immature Granulocytes % 0.6 %; Immature Granulocytes Absolute 0.06 #; Lymphocytes % 21.3 % (21.3-54.2); Mean Corpuscular HGB Conc 33.7 GM/DL (32-36); Mean Corpuscular Hemoglobin 27 PG (27-34); Mean Corpuscular Volume 80.7 FL (87-102); Mean Platelet Volume 9.8 FL (9.6-12.0); Monocytes # 0.7 10*3/uL (0.11-0.8); Monocytes % 7.4 % (1.7-12.7); Neutrophils # 6.5 10*3/uL (1.4-7.4); Platelet Count 282 T/CUMM (130-400); Red Blood Count 3.16 MC/CUMM (3.8-5.5); Red Cell Distribution Width 15.5 % (9.3-17.3); White Blood Count 9.6 T/CUMM (4-12)
[2017-11-10 05:43] LABS: Calcium 7.5 MG/DL (8.5-10.1); Osmolality,Calculated 290.7 MOS/KG (273-304); Potassium 4.2 MMOL/L (3.5-5.1)
[2017-11-10 05:53] LABS: Magnesium 2.2 MG/DL (1.8-2.4); Osmolality,Calculated 289.7 MOS/KG (273-304); Potassium 4.2 MMOL/L (3.5-5.1)
[2017-11-10] MEDS: DEXTROSE 50% 25 GM/50 ML VIAL IV PRN (07:00)
[2017-11-10] MEDS: INSULIN GLARGINE 100 UNIT/ML SUBCUT SCH (10:05)
[2017-11-10] MEDS: IRON (CARBONYL) 45 MG TABLET PO SCH ×2 (10:06→22:02)
[2017-11-10] MEDS: BUMETANIDE 1 MG TABLET PO SCH ×2 (10:06→16:15)
[2017-11-10] MEDS: ATORVASTATIN 80 MG TABLET PO SCH (10:06)
[2017-11-10] MEDS: PANTOPRAZOLE 40 MG TABLET PO SCH (10:07)
[2017-11-10] MEDS: SPIRONOLACTONE 25 MG TABLET PO SCH (10:07)
[2017-11-10] MEDS: CARVEDILOL 3.125 MG TABLET PO SCH ×2 (10:08→22:03)
[2017-11-10] MEDS: ISOSORBIDE MONONITRATE 30 MG TABLET PO SCH (10:08)
[2017-11-10] MEDS: metOLazone 5 MG TABLET PO SCH (10:09)
[2017-11-10] MEDS: BACITRACIN OINT 0.9 GM PACK TOP SCH (10:09)
[2017-11-10] MEDS: ASPIRIN EC 81 MG TABLET PO SCH (10:09)
[2017-11-10] MEDS: hydrALAZINE 25 MG TABLET PO SCH ×3 (10:09→22:03)
[2017-11-10] MEDS: INSULIN LISPRO 100 UNIT/ML SUBCUT SCH ×4 (10:10→22:02)
[2017-11-10] MEDS: OFLOXACIN 0.3% OPH SOLN 10 ML BOTTLE LEFT EYE SCH ×4 (10:12→22:04)
[2017-11-10] MEDS: traZODone 50 MG TABLET PO SCH (22:03)
[2017-11-11] MEDS: ALBUTEROL/IPRATROPIUM 3 ML NEB RESP TX SCH ×6 (01:13→19:54)
[2017-11-11 04:46] LABS: Basophils % 0.1 % (0.0-0.8); Eosinophils # 0.2 10*3/uL (0.0-0.87); Eosinophils % 2.2 % (0.00-10.9); Hematocrit 27.2 VOL% (35.7-47.0); Immature Granulocytes % 0.4 %; Immature Granulocytes Absolute 0.04 #; Lymphocytes # 1.9 10*3/uL (1.4-4.0); Lymphocytes % 19.6 % (21.3-54.2); Mean Corpuscular HGB Conc 33.1 GM/DL (32-36); Mean Corpuscular Hemoglobin 27 PG (27-34); Mean Corpuscular Volume 80.7 FL (87-102); Monocytes # 0.7 10*3/uL (0.11-0.8); Monocytes % 7.1 % (1.7-12.7); Neutrophils # 6.7 10*3/uL (1.4-7.4); Neutrophils % 70.6 % (38.7-73.9); Platelet Count 306 T/CUMM (130-400); Red Blood Count 3.37 MC/CUMM (3.8-5.5); Red Cell Distribution Width 15.5 % (9.3-17.3); White Blood Count 9.5 T/CUMM (4-12)
[2017-11-11 05:16] LABS: Calcium 8.2 MG/DL (8.5-10.1); Magnesium 2.3 MG/DL (1.8-2.4); Osmolality,Calculated 286.1 MOS/KG (273-304); Potassium 4.8 MMOL/L (3.5-5.1)
[2017-11-11] MEDS: VANCOMYCIN 50 MG/ML 60 ML/BOTTLE PO SCH ×3 (06:20→17:11)
[2017-11-11] MEDS: BUMETANIDE 1 MG TABLET PO SCH ×2 (08:59→15:17)
[2017-11-11] MEDS: INSULIN LISPRO 100 UNIT/ML SUBCUT SCH ×4 (09:00→21:59)
[2017-11-11] MEDS: PANTOPRAZOLE 40 MG TABLET PO SCH (09:01)
[2017-11-11] MEDS: IRON (CARBONYL) 45 MG TABLET PO SCH ×2 (09:01→21:59)
[2017-11-11] MEDS: ISOSORBIDE MONONITRATE 30 MG TABLET PO SCH (09:01)
[2017-11-11] MEDS: ASPIRIN EC 81 MG TABLET PO SCH (09:01)
[2017-11-11] MEDS: BACITRACIN OINT 0.9 GM PACK TOP SCH (09:01)
[2017-11-11] MEDS: OFLOXACIN 0.3% OPH SOLN 10 ML BOTTLE LEFT EYE SCH ×4 (09:02→22:00)
[2017-11-11] MEDS: ATORVASTATIN 80 MG TABLET PO SCH (09:02)
[2017-11-11] MEDS: metOLazone 5 MG TABLET PO SCH (09:02)
[2017-11-11] MEDS: INSULIN GLARGINE 100 UNIT/ML SUBCUT SCH (09:02)
[2017-11-11] MEDS: SPIRONOLACTONE 25 MG TABLET PO SCH (09:04)
[2017-11-11] MEDS: CARVEDILOL 3.125 MG TABLET PO SCH ×2 (09:11→21:59)
[2017-11-11] MEDS: hydrALAZINE 25 MG TABLET PO SCH ×3 (09:22→21:59)
[2017-11-11] MEDS: LINEZOLID INJ 600 MG in PREMIX 1 EACH IV SCH (15:17)
[2017-11-11] MEDS: traZODone 50 MG TABLET PO SCH (22:00)
[2017-11-12] MEDS: ALBUTEROL/IPRATROPIUM 3 ML NEB RESP TX SCH ×6 (00:31→19:23)
[2017-11-12] MEDS: VANCOMYCIN 50 MG/ML 60 ML/BOTTLE PO SCH ×4 (00:32→17:08)
[2017-11-12 03:19] LABS: Basophils % 0.2 % (0.0-0.8); Eosinophils # 0.2 10*3/uL (0.0-0.87); Hematocrit 27.7 VOL% (35.7-47.0); Hemoglobin 8.9 GM/DL (12.0-16.0); Immature Granulocytes % 0.6 %; Immature Granulocytes Absolute 0.06 #; Lymphocytes # 1.9 10*3/uL (1.4-4.0); Lymphocytes % 18.7 % (21.3-54.2); Mean Corpuscular HGB Conc 32.1 GM/DL (32-36); Mean Corpuscular Hemoglobin 27 PG (27-34); Mean Corpuscular Volume 82.7 FL (87-102); Mean Platelet Volume 9.9 FL (9.6-12.0); Monocytes # 0.9 10*3/uL (0.11-0.8); Monocytes % 8.5 % (1.7-12.7); Platelet Count 330 T/CUMM (130-400); Red Blood Count 3.35 MC/CUMM (3.8-5.5); Red Cell Distribution Width 15.6 % (9.3-17.3); White Blood Count 10.1 T/CUMM (4-12)
[2017-11-12] MEDS: LINEZOLID INJ 600 MG in PREMIX 1 EACH IV SCH ×2 (03:21→14:49)
[2017-11-12 03:31] LABS: Calcium 8.3 MG/DL (8.5-10.1); Magnesium 2.3 MG/DL (1.8-2.4); Osmolality,Calculated 282.1 MOS/KG (273-304); Potassium 4.6 MMOL/L (3.5-5.1)
[2017-11-12] MEDS: ISOSORBIDE MONONITRATE 30 MG TABLET PO SCH (10:23)
[2017-11-12] MEDS: metOLazone 5 MG TABLET PO SCH (10:23)
[2017-11-12] MEDS: IRON (CARBONYL) 45 MG TABLET PO SCH ×2 (10:23→21:16)
[2017-11-12] MEDS: BUMETANIDE 1 MG TABLET PO SCH ×2 (10:23→18:33)
[2017-11-12] MEDS: ASPIRIN EC 81 MG TABLET PO SCH (10:24)
[2017-11-12] MEDS: SPIRONOLACTONE 25 MG TABLET PO SCH (10:24)
[2017-11-12] MEDS: hydrALAZINE 25 MG TABLET PO SCH ×3 (10:24→21:16)
[2017-11-12] MEDS: PANTOPRAZOLE 40 MG TABLET PO SCH (10:25)
[2017-11-12] MEDS: CARVEDILOL 3.125 MG TABLET PO SCH ×2 (10:25→21:16)
[2017-11-12] MEDS: INSULIN GLARGINE 100 UNIT/ML SUBCUT SCH (10:27)
[2017-11-12] MEDS: ATORVASTATIN 80 MG TABLET PO SCH (10:27)
[2017-11-12] MEDS: INSULIN LISPRO 100 UNIT/ML SUBCUT SCH ×4 (10:27→21:16)
[2017-11-12] MEDS: BACITRACIN OINT 0.9 GM PACK TOP SCH (10:28)
[2017-11-12] MEDS: OFLOXACIN 0.3% OPH SOLN 10 ML BOTTLE LEFT EYE SCH ×4 (10:28→21:15)
[2017-11-12] MEDS: traZODone 50 MG TABLET PO SCH (21:16)
[2017-11-13] MEDS: ALBUTEROL/IPRATROPIUM 3 ML NEB RESP TX SCH ×6 (00:08→19:35)
[2017-11-13] MEDS: VANCOMYCIN 50 MG/ML 60 ML/BOTTLE PO SCH ×5 (00:32→23:35)
[2017-11-13] MEDS: LINEZOLID INJ 600 MG in PREMIX 1 EACH IV SCH (02:50)
[2017-11-13 04:48] LABS: Basophils % 0.1 % (0.0-0.8); Eosinophils # 0.2 10*3/uL (0.0-0.87); Eosinophils % 2.5 % (0.00-10.9); Hematocrit 24.7 VOL% (35.7-47.0); Hemoglobin 8.4 GM/DL (12.0-16.0); Immature Granulocytes % 0.6 %; Immature Granulocytes Absolute 0.06 #; Lymphocytes # 1.8 10*3/uL (1.4-4.0); Lymphocytes % 19.3 % (21.3-54.2); Mean Corpuscular Hemoglobin 27 PG (27-34); Mean Corpuscular Volume 80.2 FL (87-102); Mean Platelet Volume 9.6 FL (9.6-12.0); Monocytes # 0.8 10*3/uL (0.11-0.8); Monocytes % 8.8 % (1.7-12.7); Neutrophils # 6.4 10*3/uL (1.4-7.4); Neutrophils % 68.7 % (38.7-73.9); Platelet Count 310 T/CUMM (130-400); Red Blood Count 3.08 MC/CUMM (3.8-5.5); Red Cell Distribution Width 15.6 % (9.3-17.3); White Blood Count 9.4 T/CUMM (4-12)
[2017-11-13 05:41] LABS: Magnesium 2.2 MG/DL (1.8-2.4); Osmolality,Calculated 285.2 MOS/KG (273-304); Potassium 4.7 MMOL/L (3.5-5.1)
[2017-11-13] MEDS: INSULIN LISPRO 100 UNIT/ML SUBCUT SCH ×4 (07:40→21:21)
[2017-11-13] MEDS: BACITRACIN OINT 0.9 GM PACK TOP SCH (09:21)
[2017-11-13] MEDS: BUMETANIDE 1 MG TABLET PO SCH ×2 (09:21→16:23)
[2017-11-13] MEDS: CARVEDILOL 3.125 MG TABLET PO SCH ×2 (09:21→21:21)
[2017-11-13] MEDS: ASPIRIN EC 81 MG TABLET PO SCH (09:22)
[2017-11-13] MEDS: ISOSORBIDE MONONITRATE 30 MG TABLET PO SCH (09:22)
[2017-11-13] MEDS: ATORVASTATIN 80 MG TABLET PO SCH (09:23)
[2017-11-13] MEDS: metOLazone 5 MG TABLET PO SCH (09:23)
[2017-11-13] MEDS: IRON (CARBONYL) 45 MG TABLET PO SCH ×2 (09:23→21:21)
[2017-11-13] MEDS: PANTOPRAZOLE 40 MG TABLET PO SCH (09:23)
[2017-11-13] MEDS: hydrALAZINE 25 MG TABLET PO SCH ×3 (09:23→21:20)
[2017-11-13] MEDS: SPIRONOLACTONE 25 MG TABLET PO SCH (09:23)
[2017-11-13] MEDS: INSULIN GLARGINE 100 UNIT/ML SUBCUT SCH (09:24)
[2017-11-13] MEDS: OFLOXACIN 0.3% OPH SOLN 10 ML BOTTLE LEFT EYE SCH ×4 (09:24→21:22)
[2017-11-13] MEDS: traZODone 50 MG TABLET PO SCH (21:21)
[2017-11-13] MEDS: LINEZOLID 600 MG TABLET PO SCH (21:26)
[2017-11-14] MEDS: ALBUTEROL/IPRATROPIUM 3 ML NEB RESP TX SCH ×7 (00:40→23:04)
[2017-11-14] MEDS: VANCOMYCIN 50 MG/ML 60 ML/BOTTLE PO SCH ×2 (05:29→12:14)
[2017-11-14] MEDS: ASPIRIN EC 81 MG TABLET PO SCH (08:39)
[2017-11-14] MEDS: ATORVASTATIN 80 MG TABLET PO SCH (08:39)
[2017-11-14] MEDS: IRON (CARBONYL) 45 MG TABLET PO SCH ×2 (08:39→20:39)
[2017-11-14] MEDS: BUMETANIDE 1 MG TABLET PO SCH ×2 (08:39→16:15)
[2017-11-14] MEDS: LINEZOLID 600 MG TABLET PO SCH ×2 (08:39→20:40)
[2017-11-14] MEDS: PANTOPRAZOLE 40 MG TABLET PO SCH (08:39)
[2017-11-14] MEDS: hydrALAZINE 25 MG TABLET PO SCH ×3 (08:39→20:45)
[2017-11-14] MEDS: metOLazone 5 MG TABLET PO SCH (08:39)
[2017-11-14] MEDS: CARVEDILOL 3.125 MG TABLET PO SCH ×2 (08:39→20:40)
[2017-11-14] MEDS: SPIRONOLACTONE 25 MG TABLET PO SCH (08:40)
[2017-11-14] MEDS: INSULIN GLARGINE 100 UNIT/ML SUBCUT SCH (08:40)
[2017-11-14] MEDS: ISOSORBIDE MONONITRATE 30 MG TABLET PO SCH (08:40)
[2017-11-14] MEDS: OFLOXACIN 0.3% OPH SOLN 10 ML BOTTLE LEFT EYE SCH ×4 (08:49→20:58)
[2017-11-14] MEDS: BACITRACIN OINT 0.9 GM PACK TOP SCH (08:52)
[2017-11-14] MEDS: INSULIN LISPRO 100 UNIT/ML SUBCUT SCH ×4 (08:52→20:45)
[2017-11-14 14:36] LABS: Calcium 8.2 MG/DL (8.5-10.1); Osmolality,Calculated 287.2 MOS/KG (273-304); Potassium 4.9 MMOL/L (3.5-5.1)
[2017-11-14] MEDS: traZODone 50 MG TABLET PO SCH (20:40)
[2017-11-15] MEDS: ALBUTEROL/IPRATROPIUM 3 ML NEB RESP TX SCH ×4 (02:58→14:25)
[2017-11-15 06:13] LABS: Basophils % 0.2 % (0.0-0.8); Eosinophils # 0.2 10*3/uL (0.0-0.87); Eosinophils % 1.7 % (0.00-10.9); Hematocrit 26.6 VOL% (35.7-47.0); Hemoglobin 8.6 GM/DL (12.0-16.0); Immature Granulocytes % 0.5 %; Immature Granulocytes Absolute 0.05 #; Lymphocytes # 1.8 10*3/uL (1.4-4.0); Lymphocytes % 18.2 % (21.3-54.2); Mean Corpuscular HGB Conc 32.3 GM/DL (32-36); Mean Corpuscular Hemoglobin 27 PG (27-34); Mean Corpuscular Volume 83.4 FL (87-102); Mean Platelet Volume 9.6 FL (9.6-12.0); Monocytes % 9.9 % (1.7-12.7); Neutrophils % 69.5 % (38.7-73.9); Platelet Count 328 T/CUMM (130-400); Red Blood Count 3.19 MC/CUMM (3.8-5.5); Red Cell Distribution Width 15.9 % (9.3-17.3); White Blood Count 10.1 T/CUMM (4-12)
[2017-11-15 06:29] LABS: Calcium 7.9 MG/DL (8.5-10.1); Osmolality,Calculated 286.9 MOS/KG (273-304); Potassium 4.7 MMOL/L (3.5-5.1)
[2017-11-15] MEDS: ASPIRIN EC 81 MG TABLET PO SCH (09:38)
[2017-11-15] MEDS: metOLazone 5 MG TABLET PO SCH (09:38)
[2017-11-15] MEDS: SPIRONOLACTONE 25 MG TABLET PO SCH (09:38)
[2017-11-15] MEDS: BACITRACIN OINT 0.9 GM PACK TOP SCH (09:38)
[2017-11-15] MEDS: INSULIN LISPRO 100 UNIT/ML SUBCUT SCH ×2 (09:38→13:14)
[2017-11-15] MEDS: BUMETANIDE 1 MG TABLET PO SCH (09:38)
[2017-11-15] MEDS: CARVEDILOL 3.125 MG TABLET PO SCH (09:39)
[2017-11-15] MEDS: ISOSORBIDE MONONITRATE 30 MG TABLET PO SCH (09:40)
[2017-11-15] MEDS: ATORVASTATIN 80 MG TABLET PO SCH (09:40)
[2017-11-15] MEDS: IRON (CARBONYL) 45 MG TABLET PO SCH (09:40)
[2017-11-15] MEDS: INSULIN GLARGINE 100 UNIT/ML SUBCUT SCH (09:41)
[2017-11-15] MEDS: PANTOPRAZOLE 40 MG TABLET PO SCH (09:41)
[2017-11-15] MEDS: hydrALAZINE 25 MG TABLET PO SCH (09:41)
[2017-11-15] MEDS: LINEZOLID 600 MG TABLET PO SCH (09:41)
[2017-11-15] MEDS: OFLOXACIN 0.3% OPH SOLN 10 ML BOTTLE LEFT EYE SCH ×2 (09:43→13:15)
[2017-11-15 12:15] VITALS: BP 142/67
== END 2017-11-15 15:35 | disposition swing bed (61) | DRG 280 ==
LOC: N.ED 15:49 → N.EDINP 20:26 → SUATTDRO 20:26 → N.TELES 21:03 → N.TELEN 11-06 17:40
PROVIDERS: ADMIT Internal Medicine; ATTEND Internal Medicine

== ENCOUNTER 2017-12-13 13:05 | Inpatient (IN) ==
[2017-12-13] MEDS ORDERED: ONDANSETRON 4 MG/2 ML VIAL IV STA (14:39)
[2017-12-13] MEDS ORDERED: PANTOPRAZOLE 40 MG VIAL IV STA (14:39)
[2017-12-13] MEDS ORDERED: FUROSEMIDE 40 MG/4 ML VIAL IV STA (14:42)
[2017-12-13 14:53] LABS: Apearance,Urine CLOUDY (Clear); Bilirubin,Urine Negative (Negative); Blood, Urine Negative (Negative); Glucose,Urine (UA) Negative (Negative); Hyaline Casts,Urine 6 /LPF (0-3); Ketones,Urine Negative (Negative); Nitrite,Urine Positive (Negative); Protein,Urine Negative; RBC,Urine 2 /HPF (0-4); Urine Color Yellow (Yellow); Urine Specific Gravity 1.012 (1.001-1.035); Urine Urobilinogen < 2.0 EU/DL (0.2-1.0); WBC,Urine 222 /HPF (0-6)
[2017-12-13] MEDS ORDERED: PANTOPRAZOLE 40 MG VIAL IV ONE (15:17)
[2017-12-13] MEDS ORDERED: FUROSEMIDE 40 MG/4 ML VIAL ONE (15:18)
[2017-12-13] MEDS ORDERED: ONDANSETRON 4 MG/2 ML VIAL ONE (15:18)
[2017-12-13 15:26] LABS: Basophils % 0.1 % (0.0-0.8); Eosinophils % 0.3 % (0.00-10.9); Hematocrit 27.1 VOL% (35.7-47.0); Hemoglobin 8.6 GM/DL (12.0-16.0); Immature Granulocytes % 0.8 %; Immature Granulocytes Absolute 0.09 #; Lymphocytes # 1.2 10*3/uL (1.4-4.0); Lymphocytes % 10.4 % (21.3-54.2); Mean Corpuscular HGB Conc 31.7 GM/DL (32-36); Mean Corpuscular Hemoglobin 27 PG (27-34); Mean Corpuscular Volume 85.2 FL (87-102); Mean Platelet Volume 9.5 FL (9.6-12.0); Monocytes # 0.9 10*3/uL (0.11-0.8); Monocytes % 7.6 % (1.7-12.7); Neutrophils % 80.8 % (38.7-73.9); Platelet Count 283 T/CUMM (130-400); Red Blood Count 3.18 MC/CUMM (3.8-5.5); Red Cell Distribution Width 17.2 % (9.3-17.3); White Blood Count 11.2 T/CUMM (4-12)
[2017-12-13 15:47] LABS: Albumin 2.2 G/DL (3.4-5.0); Amylase 91 U/L (25-115); Bilirubin,Total 0.6 MG/DL (0.2-1.0); Calcium 8.2 MG/DL (8.5-10.1); Osmolality,Calculated 316.5 MOS/KG (273-304); Potassium 3.6 MMOL/L (3.5-5.1); Total Protein 7.1 G/DL (6.4-8.3)
[2017-12-13] MEDS ORDERED: LACTULOSE 20 GM/30 ML UDCUP PO PRN (19:06)
[2017-12-13] MEDS ORDERED: ONDANSETRON 4 MG/2 ML VIAL IV PRN (19:06)
[2017-12-13] MEDS ORDERED: MAGNESIUM SULF RIDER 2 GM in PREMIX 1 EACH IV PRN (19:06)
[2017-12-13] MEDS ORDERED: ACETAMINOPHEN 325 MG TABLET PO PRN (19:06)
[2017-12-13] MEDS ORDERED: DEXTROSE 50% 25 GM/50 ML VIAL IV PRN (19:06)
[2017-12-13] MEDS ORDERED: MAGNESIUM SULF RIDER 4 GM in PREMIX 1 EACH IV PRN (19:06)
[2017-12-13] MEDS ORDERED: GLUCAGON 1 MG VIAL IM PRN (19:06)
[2017-12-13 19:23] LABS: ABG Base Excess 5.5 MMOL/L (-2.5-2.5); ABG HCO3 29.4 MMOL/L (20-26); ABG Oxygen Saturation 93.3 % (95-100); ABG PCO2 43.2 MM HG (35-48); Allen Test Positive; Pt O2 Delivery Device Other
[2017-12-13 20:10] LABS: Thyroid Stimulating Hormone 0.511 uIU/ml (0.358-3.74); Troponin I Only 0.093 NG/ML (0.00-0.045)
[2017-12-13] MEDS: FUROSEMIDE 100 MG/10 ML VIAL IV SCH (21:28)
[2017-12-13] MEDS: LINEZOLID INJ 600 MG in PREMIX 1 EACH IV SCH (21:29)
[2017-12-13] MEDS: CARVEDILOL 3.125 MG TABLET PO SCH (21:29)
[2017-12-13] MEDS: INSULIN LISPRO 100 UNIT/ML SUBCUT SCH (21:29)
[2017-12-13] MEDS: ENOXAPARIN 30 MG/0.3 ML SYRINGE SUBCUT SCH (21:30)
[2017-12-13] MEDS: MORPHINE 2 MG/1 ML SYRINGE IV PRN (21:34)
[2017-12-13] MEDS: OFLOXACIN 0.3% OPH SOLN 10 ML BOTTLE LEFT EYE SCH (23:05)
[2017-12-14] MEDS: POTASSIUM CHLORIDE 20 MEQ/15 ML UDCUP PER TUBE PRN ×4 (01:13→10:22)
[2017-12-14 01:55] LABS: Basophils % 0.1 % (0.0-0.8); Eosinophils # 0.1 10*3/uL (0.0-0.87); Eosinophils % 0.5 % (0.00-10.9); Hematocrit 26.2 VOL% (35.7-47.0); Hemoglobin 8.5 GM/DL (12.0-16.0); Immature Granulocytes % 0.6 %; Immature Granulocytes Absolute 0.06 #; Lymphocytes # 1.3 10*3/uL (1.4-4.0); Lymphocytes % 12.3 % (21.3-54.2); Mean Corpuscular HGB Conc 32.4 GM/DL (32-36); Mean Corpuscular Hemoglobin 27 PG (27-34); Mean Platelet Volume 9.3 FL (9.6-12.0); Monocytes # 0.9 10*3/uL (0.11-0.8); Monocytes % 8.2 % (1.7-12.7); Neutrophils # 8.3 10*3/uL (1.4-7.4); Neutrophils % 78.3 % (38.7-73.9); Platelet Count 256 T/CUMM (130-400); Red Blood Count 3.12 MC/CUMM (3.8-5.5); White Blood Count 10.6 T/CUMM (4-12)
[2017-12-14 02:37] LABS: Calcium 8.3 MG/DL (8.5-10.1); Osmolality,Calculated 316.4 MOS/KG (273-304); Potassium 3.4 MMOL/L (3.5-5.1); Risk Ratio 2.37; VLDL CHOLESTEROL 13.2 MG/DL
[2017-12-14] MEDS: INSULIN LISPRO 100 UNIT/ML SUBCUT SCH ×4 (07:42→22:02)
[2017-12-14] MEDS ORDERED: CHLORHEXIDINE 4% SOLN 118 ML BOTTLE TOP ONE (07:55)
[2017-12-14] MEDS ORDERED: BACITRACIN OINT 0.9 GM PACK TOP SCH (09:00)
[2017-12-14] MEDS ORDERED: SKIN HEALING OINT (AQUAPHOR) 50 GM TUBE TOP PRN (09:08)
[2017-12-14] MEDS: ATORVASTATIN 80 MG TABLET PO SCH (10:22)
[2017-12-14] MEDS: ASPIRIN EC 81 MG TABLET PO SCH (10:22)
[2017-12-14] MEDS: CARVEDILOL 3.125 MG TABLET PO SCH ×2 (10:22→22:00)
[2017-12-14] MEDS: PANTOPRAZOLE 40 MG TABLET PO SCH (10:22)
[2017-12-14] MEDS: FUROSEMIDE 100 MG/10 ML VIAL IV SCH (10:23)
[2017-12-14] MEDS: ACETIC ACID 0.25% IRRIGATION 1,000 ML BOTTLE IRRIG SCH ×2 (10:30→22:03)
[2017-12-14] MEDS: OFLOXACIN 0.3% OPH SOLN 10 ML BOTTLE LEFT EYE SCH ×3 (10:30→17:45)
[2017-12-14] MEDS: LINEZOLID INJ 600 MG in PREMIX 1 EACH IV SCH ×2 (10:30→22:02)
[2017-12-14] MEDS: MORPHINE 2 MG/1 ML SYRINGE IV PRN (11:46)
[2017-12-14] MEDS: POTASSIUM CHLORIDE 20 MEQ TABLET PO SCH (15:15)
[2017-12-14] MEDS: SODIUM CHLORIDE 0.9% 1,000 ML IV SCH (15:19)
[2017-12-14] MEDS: ENOXAPARIN 30 MG/0.3 ML SYRINGE SUBCUT SCH (22:02)
[2017-12-15 05:50] LABS: Eosinophils # 0.1 10*3/uL (0.0-0.87); Eosinophils % 0.8 % (0.00-10.9); Hematocrit 26.7 VOL% (35.7-47.0); Hemoglobin 8.8 GM/DL (12.0-16.0); Immature Granulocytes % 0.5 %; Immature Granulocytes Absolute 0.05 #; Lymphocytes # 1.2 10*3/uL (1.4-4.0); Lymphocytes % 11.3 % (21.3-54.2); Mean Corpuscular Hemoglobin 27 PG (27-34); Mean Corpuscular Volume 82.9 FL (87-102); Mean Platelet Volume 9.9 FL (9.6-12.0); Monocytes # 0.7 10*3/uL (0.11-0.8); Monocytes % 6.2 % (1.7-12.7); Neutrophils # 8.6 10*3/uL (1.4-7.4); Neutrophils % 81.2 % (38.7-73.9); Platelet Count 250 T/CUMM (130-400); Red Blood Count 3.22 MC/CUMM (3.8-5.5); Red Cell Distribution Width 16.9 % (9.3-17.3); White Blood Count 10.5 T/CUMM (4-12)
[2017-12-15 06:22] LABS: Calcium 8.3 MG/DL (8.5-10.1); Osmolality,Calculated 319.2 MOS/KG (273-304); Potassium 4.8 MMOL/L (3.5-5.1)
[2017-12-15] MEDS: INSULIN LISPRO 100 UNIT/ML SUBCUT SCH ×4 (09:21→20:20)
[2017-12-15] MEDS: BACITRACIN OINT 0.9 GM PACK TOP SCH (09:23)
[2017-12-15] MEDS: PANTOPRAZOLE 40 MG TABLET PO SCH (09:24)
[2017-12-15] MEDS: ATORVASTATIN 80 MG TABLET PO SCH (09:24)
[2017-12-15] MEDS: CARVEDILOL 3.125 MG TABLET PO SCH ×2 (09:24→17:56)
[2017-12-15] MEDS: ASPIRIN EC 81 MG TABLET PO SCH (09:24)
[2017-12-15] MEDS: ACETIC ACID 0.25% IRRIGATION 1,000 ML BOTTLE IRRIG SCH ×2 (09:25→20:10)
[2017-12-15] MEDS: POTASSIUM CHLORIDE 20 MEQ TABLET PO SCH (09:28)
[2017-12-15] MEDS ORDERED: CEFEPIME 500 MG in SYRINGE 1 EACH IV SCH (10:00)
[2017-12-15] MEDS: INSULIN GLARGINE 100 UNIT/ML SUBCUT SCH (10:26)
[2017-12-15] MEDS: OFLOXACIN 0.3% OPH SOLN 10 ML BOTTLE LEFT EYE SCH ×5 (10:27→20:14)
[2017-12-15] MEDS ORDERED: LEVOFLOXACIN INJ 750 MG in PREMIX 1 EACH IV ONE (13:00)
[2017-12-15] MEDS: SODIUM CHLORIDE 0.9% 1,000 ML IV SCH (18:05)
[2017-12-15] MEDS: LINEZOLID INJ 600 MG in PREMIX 1 EACH IV SCH (18:23)
[2017-12-15] MEDS: ENOXAPARIN 30 MG/0.3 ML SYRINGE SUBCUT SCH (20:13)
[2017-12-16 06:22] LABS: Basophils % 0.1 % (0.0-0.8); Eosinophils # 0.1 10*3/uL (0.0-0.87); Eosinophils % 0.5 % (0.00-10.9); Hematocrit 26.3 VOL% (35.7-47.0); Hemoglobin 8.6 GM/DL (12.0-16.0); Immature Granulocytes % 0.6 %; Immature Granulocytes Absolute 0.07 #; Lymphocytes # 1.2 10*3/uL (1.4-4.0); Mean Corpuscular HGB Conc 32.7 GM/DL (32-36); Mean Corpuscular Hemoglobin 27 PG (27-34); Mean Corpuscular Volume 83.5 FL (87-102); Monocytes # 0.6 10*3/uL (0.11-0.8); Monocytes % 5.8 % (1.7-12.7); Neutrophils # 9.1 10*3/uL (1.4-7.4); Platelet Count 232 T/CUMM (130-400); Red Blood Count 3.15 MC/CUMM (3.8-5.5); White Blood Count 11.1 T/CUMM (4-12)
[2017-12-16 06:52] LABS: Calcium 7.7 MG/DL (8.5-10.1); Osmolality,Calculated 314.8 MOS/KG (273-304); Potassium 4.7 MMOL/L (3.5-5.1)
[2017-12-16] MEDS: INSULIN LISPRO 100 UNIT/ML SUBCUT SCH ×4 (09:07→21:00)
[2017-12-16] MEDS: ASPIRIN EC 81 MG TABLET PO SCH (09:08)
[2017-12-16] MEDS: ATORVASTATIN 80 MG TABLET PO SCH (09:08)
[2017-12-16] MEDS: CARVEDILOL 3.125 MG TABLET PO SCH ×2 (09:08→16:42)
[2017-12-16] MEDS: INSULIN GLARGINE 100 UNIT/ML SUBCUT SCH (09:08)
[2017-12-16] MEDS: BACITRACIN OINT 0.9 GM PACK TOP SCH (09:09)
[2017-12-16] MEDS: PANTOPRAZOLE 40 MG TABLET PO SCH (09:09)
[2017-12-16] MEDS: ACETIC ACID 0.25% IRRIGATION 1,000 ML BOTTLE IRRIG SCH ×2 (10:42→20:18)
[2017-12-16] MEDS: OFLOXACIN 0.3% OPH SOLN 10 ML BOTTLE LEFT EYE SCH ×4 (10:42→20:54)
[2017-12-16] MEDS: ENOXAPARIN 30 MG/0.3 ML SYRINGE SUBCUT SCH (20:54)
[2017-12-16] MEDS: SODIUM CHLORIDE 0.9% 1,000 ML IV SCH (23:40)
[2017-12-17 06:08] LABS: Basophils % 0.1 % (0.0-0.8); Eosinophils # 0.1 10*3/uL (0.0-0.87); Eosinophils % 0.6 % (0.00-10.9); Hematocrit 25.9 VOL% (35.7-47.0); Hemoglobin 8.6 GM/DL (12.0-16.0); Immature Granulocytes % 0.4 %; Immature Granulocytes Absolute 0.05 #; Lymphocytes # 1.6 10*3/uL (1.4-4.0); Mean Corpuscular HGB Conc 33.2 GM/DL (32-36); Mean Corpuscular Hemoglobin 28 PG (27-34); Mean Corpuscular Volume 83.3 FL (87-102); Mean Platelet Volume 9.8 FL (9.6-12.0); Monocytes # 0.7 10*3/uL (0.11-0.8); Monocytes % 6.1 % (1.7-12.7); Neutrophils # 9.6 10*3/uL (1.4-7.4); Neutrophils % 79.8 % (38.7-73.9); Platelet Count 206 T/CUMM (130-400); Red Blood Count 3.11 MC/CUMM (3.8-5.5); Red Cell Distribution Width 17.1 % (9.3-17.3)
[2017-12-17 06:44] LABS: Calcium 8.2 MG/DL (8.5-10.1); Potassium 4.7 MMOL/L (3.5-5.1)
[2017-12-17] MEDS: INSULIN GLARGINE 100 UNIT/ML SUBCUT SCH (07:59)
[2017-12-17] MEDS: ASPIRIN EC 81 MG TABLET PO SCH (07:59)
[2017-12-17] MEDS: CARVEDILOL 3.125 MG TABLET PO SCH ×2 (07:59→16:59)
[2017-12-17] MEDS: ATORVASTATIN 80 MG TABLET PO SCH (07:59)
[2017-12-17] MEDS: PANTOPRAZOLE 40 MG TABLET PO SCH (07:59)
[2017-12-17] MEDS: BACITRACIN OINT 0.9 GM PACK TOP SCH (08:00)
[2017-12-17] MEDS ORDERED: LEVOFLOXACIN INJ 500 MG in PREMIX 1 EACH IV SCH (09:00)
[2017-12-17] MEDS: INSULIN LISPRO 100 UNIT/ML SUBCUT SCH ×4 (09:43→21:49)
[2017-12-17] MEDS: OFLOXACIN 0.3% OPH SOLN 10 ML BOTTLE LEFT EYE SCH ×4 (09:53→21:50)
[2017-12-17] MEDS: ACETIC ACID 0.25% IRRIGATION 1,000 ML BOTTLE IRRIG SCH ×2 (09:53→21:40)
[2017-12-17] MEDS ORDERED: VANCOMYCIN INJ 1,000 MG in SODIUM CHLORIDE 0.9% 250 ML IV ONE (12:30)
[2017-12-17] MEDS: ENOXAPARIN 30 MG/0.3 ML SYRINGE SUBCUT SCH (21:36)
[2017-12-17] MEDS: SODIUM CHLORIDE 0.9% 1,000 ML IV SCH (21:37)
[2017-12-18 06:04] LABS: Calcium 8.1 MG/DL (8.5-10.1); Osmolality,Calculated 312.7 MOS/KG (273-304); Potassium 4.6 MMOL/L (3.5-5.1)
[2017-12-18] MEDS: INSULIN LISPRO 100 UNIT/ML SUBCUT SCH ×2 (07:56→12:30)
[2017-12-18] MEDS: ATORVASTATIN 80 MG TABLET PO SCH (08:31)
[2017-12-18] MEDS: PANTOPRAZOLE 40 MG TABLET PO SCH (08:31)
[2017-12-18] MEDS: INSULIN GLARGINE 100 UNIT/ML SUBCUT SCH (08:31)
[2017-12-18] MEDS: ASPIRIN EC 81 MG TABLET PO SCH (08:32)
[2017-12-18] MEDS: CARVEDILOL 3.125 MG TABLET PO SCH (08:32)
[2017-12-18] MEDS: OFLOXACIN 0.3% OPH SOLN 10 ML BOTTLE LEFT EYE SCH ×2 (08:36→12:30)
[2017-12-18] MEDS: BACITRACIN OINT 0.9 GM PACK TOP SCH (12:33)
[2017-12-18] MEDS: ACETIC ACID 0.25% IRRIGATION 1,000 ML BOTTLE IRRIG SCH (12:33)
[2017-12-18] MEDS ORDERED: LINEZOLID 600 MG TABLET PO SCH (14:00)
[2017-12-18 15:50] VITALS: BP 140/56
[2017-12-19] MEDS ORDERED: LEVOFLOXACIN 500 MG TABLET PO SCH (09:00)
== END 2017-12-18 16:00 | DRG 299 ==
LOC: N.ED 13:05 → SUATTDRO 17:39 → N.EDINP 18:15 → N.CC 18:40 → N.2E 12-14 20:50
PROVIDERS: ADMIT Internal Medicine; ATTEND Internal Medicine Geriatric Medicine